=== PATIENT | female | born 1950 | race Caucasian/White ===

== ENCOUNTER 2016-12-24 11:00 | Emergency (ER) | payer BC, OTHER ==
[~2016-12-24] VITALS: Ht 172.7 cm; Wt 108.9 kg
[2016-12-24] MEDS ORDERED: BLOOD PRESSURE (11:57)
[2016-12-24] MEDS ORDERED: KETOROLAC 15 MG/ML VIAL IVP ONE (12:15)
[2016-12-24] MEDS: ORPHENADRINE 60 MG/2 ML (NORFLEX) AMP IV ONE (12:22)
[2016-12-24] MEDS: KETOROLAC 30 MG/ML VIAL IVP ONE (12:23)
[2016-12-24 12:28] LABS: BASOPHILS % (AUTO) 0 % (0-10); EOSINOPHILS # (AUTO) 0.1 10^3/uL (0.0-0.3); EOSINOPHILS % (AUTO) 2 % (0-10); LYMPHOCYTES # (AUTO) 1.4 X 10^3 (1.0-4.0); LYMPHOCYTES % (AUTO) 19 % (12-44); MEAN CORPUSCULAR HEMOGLOBIN 28 PG (25-34); MEAN CORPUSCULAR HGB CONC 33 G/DL (32-36); MEAN CORPUSCULAR VOLUME 87 FL (80-99); MEAN PLATELET VOLUME 10.1 FL (7.4-10.4); MONOCYTES # (AUTO) 0.6 X 10^3 (0.0-1.0); MONOCYTES % (AUTO) 8 % (0-12); NEUTROPHILS # (AUTO) 5.2 X 10^3 (1.8-7.8); NEUTROPHILS % (AUTO) 71 % (42-75); PLATELET COUNT 212 10^3/uL (130-400); RED BLOOD COUNT 4.24 10^6/uL (4.35-5.85); RED CELL DISTRIBUTION WIDTH 14.3 % (10.0-14.5); WHITE BLOOD COUNT 7.3 10^3/uL (4.3-11.0)
--- NOTE | 2016-12-24 12:41 | ED GU-Female ---
General Chief Complaint: Abdominal/GI Problems Stated Complaint: BACK PAIN POSS KIDNEY STONE Nursing Triage Note: ADM TO ED C/O L FLANK FOR 1 WEEK. Nursing Sepsis Screen: No Definite Risk Source: patient Exam Limitations: no limitations History of Present Illness Time seen by provider: 12:40 Initial Comments To ER with left flank pain for one week. This initially began with pain worsened by movement and palpation and she believes to be secondary to helping her mother move. However the pain persisted and now she is concerned about a kidney stone. No dysuria. No fevers or chills. No nausea or vomiting. Timing/Duration: week Severity/Quality: moderate Location: left flank Activities at Onset: none Allergies and Home Medications Allergies Coded Allergies: codeine (Verified Allergy, Unknown, 12/24/16) Home Medications Ciprofloxacin HCl 500 Mg Tablet, 500 MG PO BID, #10 Prescribed by: PINKY MACK on 12/24/16 1301 Hyoscyamine Sulfate 0.125 Mg Tab.subl, 0.25 MG SL Q6H PRN for PAIN-MILD TO MODERATE, #10 Prescribed by: PINKY MACK on 12/24/16 1301 Metronidazole 500 Mg Tablet, 500 MG PO TID, #15 Prescribed by: PINKY MACK on 12/24/16 1301 [Blood Pressure] , (Reported) Constitutional: see HPI EENTM: see HPI Respiratory: no symptoms reported Cardiovascular: no symptoms reported Genitourinary: no symptoms reported Musculoskeletal: no symptoms reported Skin: no symptoms reported Psychiatric/Neurological: No Symptoms Reported Past Yhlchra-Pahzpx-Psinna Hx Patient Social History Recent Foreign Travel: No Contact w/Someone Who Travel: No Recent Infectious Disease Expo: No Surgeries History of Surgeries: Yes Surgeries: Breast, Gallbladder Respiratory History of Respiratory Disorde: No Cardiovascular History of Cardiac Disorders: Yes (CHF) Neurological History of Neurological Disord: No Genitourinary History of Genitourinary Disor: No Gastrointestinal History of Gastrointestinal Di: No Musculoskeletal History of Musculoskeletal Dis: No Endocrine History of Endocrine Disorders: No HEENT History of HEENT Disorders: No Cancer History of Cancer: No Psychosocial History of Psychiatric Problem: No Integumentary History of Skin or Integumenta: No Physical Exam Vital Signs Vital Sign - Last 12Hours 12/24/16 11:45 Temp 98.3 Pulse 84 Resp 18 B/P (MAP) 154/74 Pulse Ox 95 O2 Delivery Room Air Capillary Refill : Less Than 3 Seconds General Appearance: WD/WN, no apparent distress HEENT: PERRL/EOMI, normal ENT inspection Neck: non-tender, full range of motion Respiratory: no respiratory distress, no accessory muscle use Gastrointestinal: normal bowel sounds, non tender, soft Extremities: normal range of motion, non-tender, normal inspection Neurologic/Psychiatric: alert, normal mood/affect, oriented x 3 Skin: normal color, warm/dry Progress/Results/Core Measures Results/Orders Lab Results Laboratory Tests Test 12/24/16 11:58 12/24/16 12:31 Range/Units White Blood Count 7.3 4.3-11.0 10^3/uL Red Blood Count 4.24 L 4.35-5.85 10^6/uL Hemoglobin 12.0 11.5-16.0 G/DL Hematocrit 37 35-52 % Mean Corpuscular Volume 87 80-99 FL Mean Corpuscular Hemoglobin 28 25-34 PG Mean Corpuscular Hemoglobin Concent 33 32-36 G/DL Red Cell Distribution Width 14.3 10.0-14.5 % Platelet Count 212 130-400 10^3/uL Mean Platelet Volume 10.1 7.4-10.4 FL Neutrophils (%) (Auto) 71 42-75 % Lymphocytes (%) (Auto) 19 12-44 % Monocytes (%) (Auto) 8 0-12 % Eosinophils (%) (Auto) 2 0-10 % Basophils (%) (Auto) 0 0-10 % Neutrophils # (Auto) 5.2 1.8-7.8 X 10^3 Lymphocytes # (Auto) 1.4 1.0-4.0 X 10^3 Monocytes # (Auto) 0.6 0.0-1.0 X 10^3 Eosinophils # (Auto) 0.1 0.0-0.3 10^3/uL Basophils # (Auto) 0.0 0.0-0.1 10^3/uL Sodium Level 141 135-145 MMOL/L Potassium Level 4.4 3.6-5.0 MMOL/L Chloride Level 106 98-107 MMOL/L Carbon Dioxide Level 26 21-32 MMOL/L Anion Gap 9 5-14 MMOL/L Blood Urea Nitrogen 13 7-18 MG/DL Creatinine 0.65 0.60-1.30 MG/DL Estimat Glomerular Filtration Rate > 60 BUN/Creatinine Ratio 20 Glucose Level 113 H 70-105 MG/DL Calcium Level 9.7 8.5-10.1 MG/DL Total Bilirubin 1.2 H 0.1-1.0 MG/DL Aspartate Amino Transf (AST/SGOT) 20 5-34 U/L Alanine Aminotransferase (ALT/SGPT) 22 0-55 U/L Alkaline Phosphatase 66 40-136 U/L Total Protein 7.0 6.4-8.2 GM/DL Albumin 3.8 3.2-4.5 GM/DL Urine Color YELLOW Urine Clarity CLEAR Urine pH 7 5-9 Urine Specific [place] 1.010 L 1.016-1.022 Urine Protein 1+ H NEGATIVE Urine Glucose (UA) NEGATIVE NEGATIVE Urine Ketones NEGATIVE NEGATIVE Urine Nitrite NEGATIVE NEGATIVE Urine Bilirubin NEGATIVE NEGATIVE Urine Urobilinogen 1 NORMAL MG/DL Urine Leukocyte Esterase 1+ H NEGATIVE Urine RBC (Auto) 1+ H NEGATIVE Urine RBC RARE /HPF Urine WBC RARE /HPF Urine Squamous Epithelial Cells 10-25 H /HPF Urine Crystals NONE /LPF Urine Bacteria NEGATIVE /HPF Urine Casts NONE /LPF Urine Mucus NEGATIVE /LPF Urine Culture Indicated NO My Orders Orders - PINKY MACK APRN Ua Culture If Indicated (12/24/16 12:11) Cbc With Automated Diff (12/24/16 12:11) Comprehensive Metabolic Panel (12/24/16 12:11) Saline Lock/Iv-Start (12/24/16 12:11) Ct Abd/Pelvis Wo(Kidney Stone) (12/24/16 12:11) Ketorolac Injection (Toradol Injection) (12/24/16 12:15) Orphenadrine Injection (Norflex Injectio (12/24/16 12:15) Ketorolac Injection (Toradol Injection) (12/24/16 12:30) Medications Given in ED Current Medications Medications Dose Ordered Sig/Merle Route Start Time Stop Time Status Last Admin Dose Admin Ketorolac Tromethamine 30 mg ONCE ONCE IVP 12/24/16 12:30 12/24/16 12:31 DC 12/24/16 12:23 30 MG Orphenadrine Citrate 60 mg ONCE ONCE IV 12/24/16 12:15 12/24/16 12:16 DC 12/24/16 12:22 60 MG Vital Signs/I&O Vital Sign - Last 12Hours 12/24/16 11:45 Temp 98.3 Pulse 84 Resp 18 B/P (MAP) 154/74 Pulse Ox 95 O2 Delivery Room Air Blood Pressure Mean: 100 Diagnostic Imaging Diagonstic Imaging: CT Comments NAME: DEB COHN REC#: [id number] PT STATUS: REG ER : 1950 PHYSICIAN: PINKY MACK APRN ADMIT DATE: 12/24/16/ER Draft Date of Exam:12/24/16 CT ABD/PELVIS WO(KIDNEY STONE) PROCEDURE: CT urinary tract, rule out kidney stone. TECHNIQUE: Multiple contiguous axial images were obtained through the abdomen and pelvis without the use of intravenous contrast. INDICATION: Left flank pain for 5 days. FINDINGS: The gallbladder is absent. The liver and bile ducts are normal. The spleen, pancreas and adrenals are normal. Kidneys, ureters and bladder are normal. There is diffuse spasm of the descending and sigmoid colon with scattered diverticula seen. No pericolonic edema is seen. No obstruction or perforation is evident. The small bowel is normal. IMPRESSION: There is diffuse spasm of the descending and sigmoid colon. These findings can be seen with inflammatory bowel disease. No obstruction or perforation is evident at this time. Dictated on workstation # [id number] Dict: 12/24/16 1250 Trans: 12/24/16 1253 [id number] Interpreted by: ADONIS MEREDITH MD Electronically signed by: Departure Communication Progress Notes I did discuss the CT results with the patient and the need for follow-up colonoscopy. She states that she has never had a colonoscopy. Impression Impression: Primary Impression: Colon wall thickening Disposition: 01 HOME, SELF-CARE Condition: Stable Departure-Patient Inst. Decision time for Depature: 12:59 Referrals: CAROLYNN REYNA MD (PCP/Family) Primary Care Physician Patient Instructions: No Instuctions Given Add. Discharge Instructions: 1. Follow-up with her regular doctor later this week 2. Return to ER for any concerns 3. Antibiotics as directed All discharge instructions reviewed with patient and/or family. Voiced understanding. Scripts Hyoscyamine Sulfate (Levsin-Sl) 0.125 Mg Tab.subl 0.25 MG SL Q6H Y for PAIN-MILD TO MODERATE, #10 TAB Prov: PINKY MACK APRN 12/24/16 Metronidazole (Flagyl) 500 Mg Tablet 500 MG PO TID, #15 TAB Prov: PINKY MACK APRN 12/24/16 Ciprofloxacin HCl (Cipro) 500 Mg Tablet 500 MG PO BID, #10 TAB Prov: PINKY MACK APRN 12/24/16 Copy Copies To 1: CAROLYNN REYNA MD, PETER J APRN Dec 24, 2016 12:41
[2016-12-24 12:45] LABS: ALANINE AMINOTRANSFERASE 22 U/L (0-55); ALBUMIN 3.8 GM/DL (3.2-4.5); ANION GAP 9 MMOL/L (5-14); ASPARTATE AMINO TRANSFERASE 20 U/L (5-34); BILIRUBIN,TOTAL 1.2 MG/DL (0.1-1.0); BLOOD UREA NITROGEN 13 MG/DL (7-18); BUN/CREATININE RATIO 20; CALCIUM 9.7 MG/DL (8.5-10.1); CARBON DIOXIDE 26 MMOL/L (21-32); CHLORIDE 106 MMOL/L (98-107); CREATININE SERUM 0.65 MG/DL (0.60-1.30); GFR ESTIMATED > 60; GLUCOSE 113 MG/DL (70-105); POTASSIUM 4.4 MMOL/L (3.6-5.0); SODIUM 141 MMOL/L (135-145)
[2016-12-24 12:48] LABS: BILIRUBIN,URINE NEGATIVE (NEGATIVE); KETONES,URINE NEGATIVE (NEGATIVE); LEUKOCYTE ESTERASE ,URINE 1+ (NEGATIVE); NITRITE,URINE NEGATIVE (NEGATIVE); PH,URINE 7 (5-9); PROTEIN,URINE 1+ (NEGATIVE); UROBILINOGEN,URINE 1 MG/DL (NORMAL)
[2016-12-24 12:49] LABS: WBC,URINE RARE /HPF
--- NOTE | 2016-12-24 12:54 | Diagnostic Imaging Report ---
PROCEDURE: CT urinary tract, rule out kidney stone. TECHNIQUE: Multiple contiguous axial images were obtained through the abdomen and pelvis without the use of intravenous contrast. INDICATION: Left flank pain for 5 days. FINDINGS: The gallbladder is absent. The liver and bile ducts are normal. The spleen, pancreas and adrenals are normal. Kidneys, ureters and bladder are normal. There is diffuse spasm of the descending and sigmoid colon with scattered diverticula seen. No pericolonic edema is seen. No obstruction or perforation is evident. The small bowel is normal. IMPRESSION: There is diffuse spasm of the descending and sigmoid colon. These findings can be seen with inflammatory bowel disease. No obstruction or perforation is evident at this time. Dictated by: Dictated on workstation # [id number]
[2016-12-24] MEDS ORDERED: HYOS0.1283 SL (13:01)
[2016-12-24] MEDS ORDERED: METR500T PO (13:01)
[2016-12-24] MEDS ORDERED: CIPR-225 PO (13:01)
[2016-12-24 13:15] VITALS: BP 169/94
--- OUTSIDE RECORDS SUMMARY | 2016-12-26 09:22 | XMS REPORT | Continuity of Care Document ---
Author Author [facility] Organization [facility] Address Unknown Phone Unavailable Care Team Providers Care Supervisor Name Role Phone CAROLYNN REYNA MD PCP Insurance Providers Payer Name Policy Number Subscriber Name Relationship [facility] [id number] Ozzy Richter 01 Advance Directives Directive Response Recorded Date/Time Advance Directives Yes 12/01/14 7:43am Health Care Power of Tube Wrapper Yes 12/01/14 7:43am Organ Donor No 12/01/14 7:43am Problems No problem information available. Medications Current Home Medications Medication Dose Units Route Directions Days/Qty Instructions Start Date Cholecalciferol 5,000 Unit 5,000 Unit Oral Daily 12/01/14 Carvedilol (Coreg) 25 Mg 25 Mg Oral Am 12/01/14 Carvedilol (Coreg) 25 Mg 50 Mg Oral Bedtime TAKES 2 (25MG) TABLETS 07/13 Furosemide 40 Mg 40 Mg Oral Daily as needed for Swelling 12/01/14 Potassium Chloride (Micro K) 10 Meq 10 Meq Oral Daily as needed for When Taking Furosemide 12/01/14 Candesartan Cilexetil 16 Mg 8 Mg Oral Bedtime TAKES 1/2 (16MG) TABLET 12/01/14 Past Home Medications Medication Directions Ordered Status [Atacand] , 0.5 Tab Oral Bedtime 12/01/14 Discontinued Social History No social history. Hospital Discharge Instructions No hospital discharge instructions. Plan of Care Discharge Date 01/19/15 5:52am Prescriptions See Medication Section Functional Status No functional status results. Allergies, Adverse Reactions, Alerts Allergen Type Severity Reaction Status Last Updated Codeine Allergy Unknown Active 05/22/14 Immunizations Name Given Type Date of Pneumonia Vaccine 01/02/12 Historical Vital Signs No known vital signs results. Results No known relevant diagnostic tests, laboratory data and/or discharge summary. Procedures No known history of procedures. Encounters Encounter Location Arrival/Admit Date Discharge/Depart Date Attending Provider Registered Clinic [facility] 01/18/15 8:25pm MARIELLE HENSLEY MD
--- OUTSIDE RECORDS SUMMARY | 2016-12-26 09:22 | XMS REPORT | Continuity of Care Document ---
Author Author [facility] Organization [facility] Address Unknown Phone Unavailable Care Team Providers Care Sales Operations Name Role Phone CAROLYNN REYNA MD PCP Insurance Providers Payer Name Policy Number Subscriber Name Relationship [facility] [id number] Ozzy Richter 01 Advance Directives Directive Response Recorded Date/Time Advance Directives Yes 12/01/14 7:43am Health Care Power of Medical Laboratory Assistant Yes 12/01/14 7:43am Organ Donor No 12/01/14 7:43am Resuscitation Status Full Code 12/01/14 7:43am Problems No known problems or medical conditions. Medications Medication Dose Route Sig Days/Qty Instructions Order Date Discontinued Date Status Cholecalciferol 5,000 Unit PO DAILY 12/01/14 Active Carvedilol (Coreg) 25 Mg PO AM 12/01/14 Active Carvedilol (Coreg) 50 Mg PO BEDTIME TAKES 2 (25MG) TABLETS 12/01/14 Active Furosemide 40 Mg PO DAILY PRN SWELLING 12/01/14 Active Potassium Chloride (Micro K) 10 Meq PO DAILY PRN WHEN TAKING FUROSEMIDE 12/01/14 Active [Atacand] 0.5 Tab PO BEDTIME 12/01/14 12/01/14 Discontinued Candesartan Cilexetil 8 Mg PO BEDTIME 12/01/14 Active Social History Social History Problem Response Recorded Date/Time Recent Foreign Travel No 12/01/2014 7:42am Smoking Status Never a Smoker 12/01/2014 7:48am Query Response Start Date Stop Date Smoking Status Never a Smoker Hospital Discharge Instructions No hospital discharge instructions. Plan of Care No plan of care. Functional Status Query Response Date Recorded Patient Orientation Person Place Time Situation Eyes Open December 01, 2014 5:08pm Allergies, Adverse Reactions, Alerts Allergen Type Severity Reaction Status Last Updated Codeine Allergy Unknown Active 05/22/14 Immunizations Name Given Type Date of Pneumonia Vaccine 01/02/12 Historical Vital Signs Acute Vital Signs Vital Response Date/Time Temperature (Fahrenheit) 98.2 degrees F (97.6 - 99.5) Temperature (Calculated Celsius) 36.59330 degrees C (36.4 - 37.5) Temperature Source Temporal Pulse Rate (adult) 81 bpm (60 - 90) Respiratory Rate 16 bpm (12 - 24) O2 Sat by Pulse Oximetry 95 % (88 - 100) Blood Pressure 133/77 mm Hg Blood Pressure Mean 95 mm Hg Pain Pain Intensity 0 Height (Feet) 5 feet Height (Inches) 8.00 inches Height (Calculated Centimeters) 172.971225 cm Weight (Pounds) 241 pounds Weight (Calculated Grams) 237670.762 gm Weight (Calculated Kilograms) 109.337484 kilograms Calculated BMI 36.64 Results Laboratory Results Test Name Result Units Flags Reference Collection Date/Time Result Date/ Time Comments White Blood Count 7.8 10^3/uL 4.3-11.0 12/01/2014 7:50am 12/01/2014 8: 00am Red Blood Count 4.75 10^6/uL 4.35-5.85 12/01/2014 7:50am 12/01/2014 8: 00am Hemoglobin 13.4 G/DL 11.5-16.0 12/01/2014 7:50am 12/01/2014 8:00am Hematocrit 41 % 35-52 12/01/2014 7:50am 12/01/2014 8:00am Mean Corpuscular Volume 86 FL 80-99 12/01/2014 7:50am 12/01/2014 8: 00am Mean Corpuscular Hemoglobin 28 PG 25-34 12/01/2014 7:50am 12/01/2014 8: 00am Mean Corpuscular Hemoglobin Concent 33 G/DL 32-36 12/01/2014 7:50am 06/2014 8:00am Red Cell Distribution Width 14.6 % H 10.0-14.5 12/01/2014 7:50am 2014 8:00am Platelet Count 235 10^3/uL 130-400 12/01/2014 7:50am 12/01/2014 8:00am Mean Platelet Volume 9.7 FL 7.4-10.4 12/01/2014 7:50am 12/01/2014 8: 00am Prothrombin Time 13.1 SEC 12.2-14.7 12/01/2014 7:50am 12/01/2014 8: 13am INR Comment 1.0 0.8-1.4 12/01/2014 7:50am 12/01/2014 8:13am INTERPRETIVE DATA SUGGESTED THERAPEUTIC RANGE FOR INR'S: VENOUS THROMBOSIS, PULMONARY EMBOLISM, OR PREVENTION OF SYSTEMIC EMBOLISM (EG. IN ATRIAL FIBRILLATION): 2.0 - 3.0 MECHANICAL PROSTHETIC HEART VALVES: 2.5 - 3.5* *NOTE: INR'S UP TO 4.5 MAY BE NECESSARY IN SELECTED GROUPS OF HIGH RISK PATIENTS. [employer] CONSENSUS CONFERENCE ON ANTITHROMBOTIC THERAPY (2000). Activated Partial Thromboplast Time 28 SEC 24-35 12/01/2014 7:50am 06/2014 8:13am Sodium Level 142 MMOL/L 135-145 12/01/2014 7:50am 12/01/2014 8:29am Potassium Level 3.7 MMOL/L 3.6-5.0 12/01/2014 7:50am 12/01/2014 8:29am Chloride Level 103 MMOL/L 98-107 12/01/2014 7:50am 12/01/2014 8:29am Carbon Dioxide Level 31 MMOL/L 21-32 12/01/2014 7:50am 12/01/2014 8: 29am Anion Gap 8 MMOL/L 5-14 12/01/2014 7:50am 12/01/2014 8:29am Blood Urea Nitrogen 13 MG/DL 7-18 12/01/2014 7:50am 12/01/2014 8:29am Creatinine 0.79 MG/DL 0.60-1.30 12/01/2014 7:50am 12/01/2014 8:29am BUN/Creatinine Ratio 16 12/01/2014 7:50am 12/01/2014 8:29am Estimat Glomerular Filtration Rate > 60 12/01/2014 7:50am 2014 8:29am GFR INTERPRETIVE DATA UNITS FOR ESTIMATED GFR (eGFR): mL/min/1.73 M2 REFERENCE RANGE FOR ESTIMATED GFR (eGFR) eGFR NORMAL eGFR >60 MODERATELY DECREASED eGFR 30-59 SEVERLY DECREASED eGFR 15-29 KIDNEY FAILURE <15 (OR DIALYSIS) Glucose Level 105 MG/DL 70-105 12/01/2014 7:50am 12/01/2014 8:29am Calcium Level 9.9 MG/DL 8.5-10.1 12/01/2014 7:50am 12/01/2014 8:29am Total Bilirubin 1.3 MG/DL H 0.1-1.0 12/01/2014 7:50am 12/01/2014 8:29am Alkaline Phosphatase 64 U/L 40-136 12/01/2014 7:50am 12/01/2014 8:29am Aspartate Amino Transf (AST/SGOT) 16 U/L 5-34 12/01/2014 7:50am 2014 8:29am Alanine Aminotransferase (ALT/SGPT) 18 U/L 0-55 12/01/2014 7:50am 12/01 8:29am Total Protein 7.2 G/DL 6.4-8.2 12/01/2014 7:50am 12/01/2014 8:29am Albumin 3.9 G/DL 3.2-4.5 12/01/2014 7:50am 12/01/2014 8:29am Triglycerides Level 132 MG/DL <150 12/01/2014 7:50am 12/01/2014 8:29am Cholesterol Level 214 MG/DL H < 200 12/01/2014 7:50am 12/01/2014 8:29am HDL Cholesterol 48 MG/DL 40-60 12/01/2014 7:50am 12/01/2014 8:29am LDL Cholesterol Direct 138 MG/DL H 1-129 12/01/2014 7:50am 12/01/2014 8: 29am VLDL Cholesterol 26 MG/DL 5-40 12/01/2014 7:50am 12/01/2014 8:29am Procedures Procedure Status Date Provider(s) Color Doppler echocardiography completed 11/24/14 MARIELLE HENSLEY MD Encounters Encounter Location Date/Time Departed [facility] 12/01/14 7:31am Registered Clinic [facility] 11/24/14 12:37pm
--- OUTSIDE RECORDS SUMMARY | 2016-12-26 09:23 | XMS REPORT | Continuity of Care Document ---
Author Author [facility] Organization [facility] Address Unknown Phone Unavailable Allergies Active Description Code Type Severity Reaction Onset Reported/Identified Relationship to Patient Clinical Status Yes codeine [id number] Drug Allergy Unknown N/A 05/22/2014 Medications Problems Date Dx Coded Attending Type Code Diagnosis Diagnosed By 05/08/2014 MARIELLE HENSLEY MD Ot 173.31 05/08/2014 MARIELLE HENSLEY MD Ot 425.4 05/08/2014 MARIELLE HENSLEY MD Ot V10.3 06/11/2014 MARIELLE HENSLEY MD Ot 425.4 11/27/2014 MARIELLE HENSLEY MD Ot 425.4 12/01/2014 MARIELLE HENSLEY MD Ot 278.00 OBESITY, NOS 12/01/2014 MARIELLE HENSLEY MD Ot 327.23 OBSTRUCTIVE SLEEP APNEA (ADULT) ( PEDIATR 12/01/2014 MARIELLE HENSLEY MD Ot 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 12/01/2014 MARIELLE HENSLEY MD Ot 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 12/01/2014 MARIELLE HENSLEY MD Ot 425.4 PRIM CARDIOMYOPATHY NEC 12/01/2014 MARIELLE HENSLEY MD Ot V10.3 HX OF BREAST MALIGNANCY 12/01/2014 MARIELLE HENSLEY MD Ot V15.3 HX OF IRRADIATION 12/01/2014 MARIELLE HENSLEY MD Ot V58.69 OTH MED,LT,CURRENT USE 12/01/2014 MARIELLE HENSLEY MD Ot V85.36 BODY MASS INDEX 36.0-36.9, ADULT 12/01/2014 MARIELLE HENSLEY MD Ot V87.41 PERSONAL HISTORY OF ANTINEOPLASTIC CHEMO 12/22/2014 MARIELLE HENSLEY MD Ot 425.4 01/19/2015 MARIELLE HENSLEY MD Ot 327.23 OBSTRUCTIVE SLEEP APNEA (ADULT) ( PEDIATR 01/19/2015 MARIELLE HENSLEY MD Ot 425.4 PRIM CARDIOMYOPATHY NEC 02/11/2015 MARIELLE HENSLEY MD Ot 173.31 02/11/2015 MARIELLE HENSLEY MD Ot 425.4 02/11/2015 MARIELLE HENSLEY MD Ot V10.3 02/11/2015 MARIELLE HENSLEY MD Ot 425.4 02/11/2015 MARIELLE HENSLEY MD Ot 425.4 06/21/2016 MARIELLE HENSLEY MD Ot 173.31 BASAL CELL CARCINOMA OF SKIN OF OT UN 06/21/2016 MARIELLE HENSLEY MD Ot 425.4 PRIM CARDIOMYOPATHY NEC 06/21/2016 MARIELLE HENSLEY MD Ot V10.3 HX OF BREAST MALIGNANCY 06/21/2016 MARIELLE HENSLEY MD Ot 425.4 PRIM CARDIOMYOPATHY NEC 06/21/2016 MARIELLE HENSLEY MD Ot 425.4 PRIM CARDIOMYOPATHY NEC 06/21/2016 MARIELLE HENSLEY MD Ot 173.31 BASAL CELL CARCINOMA OF SKIN OF OT UN 06/21/2016 MARIELLE HENSLEY MD Ot 425.4 PRIM CARDIOMYOPATHY NEC 06/21/2016 MARIELLE HENSLEY MD Ot V10.3 HX OF BREAST MALIGNANCY 06/21/2016 MARIELLE HENSLEY MD Ot 425.4 PRIM CARDIOMYOPATHY NEC 06/21/2016 MARIELLE HENSLEY MD Ot 425.4 PRIM CARDIOMYOPATHY NEC 06/23/2016 MARIELLE HENSLEY MD Ot 173.31 BASAL CELL CARCINOMA OF SKIN OF OT UN 06/23/2016 MARIELLE HENSLEY MD Ot 425.4 PRIM CARDIOMYOPATHY NEC 06/23/2016 MARIELLE HENSLEY MD Ot V10.3 HX OF BREAST MALIGNANCY 06/23/2016 MARIELLE HENSLEY MD Ot 425.4 PRIM CARDIOMYOPATHY NEC 06/23/2016 MARIELLE HENSLEY MD, Ot 425.4 PRIM CARDIOMYOPATHY NEC Procedures Results Encounters ACCT No. Visit Date/Time Discharge Status Pt. Type Provider Facility Loc./Unit Complaint [id number] 01/18/2015 20:25:00 2014 05:52:00 DIS Outpatient MARIELLE HENSLEY MD [facility] SLEEP SNORING EXCESSIVE DAYTIME SLEEPINESS [id number] 12/01/2014 07:31:00 2014 16:30:00 DIS Outpatient MARIELLE HENSLEY MD [facility] CARDIOMYOPATHY [id number] 11/24/2014 12:37:00 2014 23:59:59 CLS Outpatient MARIELLE HENSLEY MD [facility] NON ISCHEMIC CARDIOMYOPATHY [id number] 05/22/2014 11:42:00 2014 23:59:59 CLS Outpatient MARIELLE HENSLEY MD [facility] CARDIOMYOPATHY-NON ISCHEMIC [id number] 04/17/2014 13:41:00 2013 23:59:59 CLS Outpatient MARIELLE HENSLEY MD [facility] NONISCHEMIC DIALATED CARDIOMYOPATHY
== END 2016-12-24 13:17 | disposition home or self-care (01) ==
LOC: EDUNIT# 11:00 → ER 11:03
DX: K63.89 Other specified diseases of intestine (principal); I50.9 Heart failure, unspecified
CPT/HCPCS: 36415; 74176; 80053; 81000; 85025

== ENCOUNTER 2017-01-18 14:00 | Outpatient (CLI) | payer BC ==
[~2017-01-18] VITALS: Ht 172.7 cm; Wt 108.9 kg
[~2017-01-18 14:00] MED LIST: ATACAND PO; BLOOD PRESSURE; CAND16TA PO; CARV25TA PO; CHOL5000 PO; CIPR-225 PO; FURO40TA PO; HYOS0.1283 SL; METR500T PO; POTA10CA43 PO
[2017-01-18] MEDS ORDERED: CRV25T PO ×2 (14:11)
[2017-01-18] MEDS ORDERED: MULT-35 PO (14:11)
[2017-01-18] MEDS ORDERED: VALS320T14 PO (14:11)
[2017-01-18] MEDS ORDERED: KRIL500C PO (14:11)
== END 2017-01-18 14:35 ==
LOC: PREOP 14:00
PROVIDERS: ATTEND Internal Medicine
DX: Z01.818 Encounter for other preprocedural examination (principal); Z12.11 Encounter for screening for malignant neoplasm of colon

== ENCOUNTER 2017-01-20 08:16 | Day surgery (SDC) | payer BC ==
--- NOTE | 2017-01-19 22:29 | HISTORY AND PHYSICAL ---
DATE OF SERVICE: 01/20/2017 DATE OF ADMISSION: 01/20/2017 HISTORY OF PRESENT ILLNESS: The patient is a 66-year-old white female seen in the office on 01/05/2017 for followup of left flank pain and need for screening colonoscopy. The patient reports her left flank pain has improved. She underwent a CT scan for stone search that did reveal some spasm in the sigmoid and descending colon with diverticulum, but no overt evidence for diverticulitis. She has no past history of colonoscopy. She denied blood or bowel habit change. There was no radiation of her pain from the left flank area. Kidneys and ureters were unremarkable. She denies chills or fever. Otherwise, has been feeling well. She has had no orthopnea, PND with stable trace pedal edema at the end of the day. She denies any increased dyspnea on exertion over baseline. PAST MEDICAL HISTORY: Dilated cardiomyopathy diagnosed in 2002, her last echo in 2014 revealed stable ejection fraction 25% with pulmonary artery pressure 44 mmHg. She has a history of breast cancer diagnosed in without evidence for recurrence. She also has a history of obstructive sleep apnea on CPAP therapy. There is no family history for colon cancer or polyps that she is aware of. PHYSICAL EXAMINATION: GENERAL: Reveals a pleasant white female in no acute distress. VITAL SIGNS: Blood pressure 136/80. NECK: Revealed no JVD, adenopathy or bruits. CHEST: Clear. CARDIOVASCULAR: Regular rate and rhythm without murmur, S3 or S4. ABDOMEN: Soft, supple without mass, organomegaly or tenderness. EXTREMITIES: Reveal no cyanosis, clubbing or edema. ASSESSMENT: 1. The patient was set up for screening colonoscopy on the . Prep instructions with Suprep kit were given and questions were answered. 2. Chronic systolic heart failure secondary to dilated nonischemic cardiomyopathy, compensated. 3. Obstructive sleep apnea on home CPAP therapy. 4. Left flank pain, most likely musculoskeletal etiology, resolved. We will have her return for regular follow up in January at which time she will be given a flu shot. Job ID: [id number] DocumentID: [id number] Dictated Date: 01/06/2017 15:55:38 Desizing Machine Offbearer Date: 01/06/2017 22:05:58 Dictated By: CAROLYNN REYNA MD
[~2017-01-20] VITALS: Ht 172.7 cm; Wt 108.9 kg
[~2017-01-20 08:16] MED LIST changes: +CRV25T PO; +KRIL500C PO; +MULT-35 PO; +VALS320T14 PO
--- OUTSIDE RECORDS SUMMARY | 2017-01-20 08:20 | XMS REPORT | Continuity of Care Document ---
Author Author [facility] Organization [facility] Address Unknown Phone Unavailable Allergies Active Description Code Type Severity Reaction Onset Reported/Identified Relationship to Patient Clinical Status Yes codeine [id number] Drug Allergy Unknown N/A 05/22/2014 Medications Problems [...] HENSLEY MD Ot 414.01 CORONARY ATHEROSCLEROSIS OF [place] CORON 12/01/2014 MARIELLE HENSLEY MD Ot 414.2 [...] Status Pt. Type Provider Facility Loc./Unit Complaint [id number] 01/18/2015 20:25:00 2014 05:52:00 DIS Outpatient MARIELLE HENSLEY MD [facility] SLEEP SNORING EXCESSIVE DAYTIME SLEEPINESS [id number] 12/01/2014 07:31:00 2014 16:30:00 DIS Outpatient MARIELLE HENSLEY MD [facility] CARDIOMYOPATHY [id number] 11/24/2014 12:37:00 2014 23:59:59 CLS Outpatient MARIELLE HENSLEY MD [facility] NON ISCHEMIC CARDIOMYOPATHY [id number] 05/22/2014 11:42:00 2014 23:59:59 CLS Outpatient MARIELLE HENSLEY MD [facility] CARDIOMYOPATHY-NON ISCHEMIC [id number] 04/17/2014 13:41:00 2013 23:59:59 CLS Outpatient MARIELLE HENSLEY MD [facility] NONISCHEMIC DIALATED CARDIOMYOPATHY
[2017-01-20] MEDS ORDERED: 1/2 NS IV SOLUTION 1,000 ML IV PRN (08:30)
[2017-01-20] MEDS ORDERED: LIDOCAINE JELLY 2% (XYLOCAINE) 5 ML TUBE MM PRN (08:30)
[2017-01-20] MEDS ORDERED: 1/2 NS IV SOLUTION 1,000 ML IV ONE (08:33)
[2017-01-20 08:38] VITALS: BP 120/56
[2017-01-20] MEDS ORDERED: MIDAZOLAM 2 MG/2 ML (VERSED) VIAL ONE ×6 (10:00→10:38)
[2017-01-20] MEDS ORDERED: LIDOCAINE JELLY 2% (XYLOCAINE) 5 ML TUBE ONE (10:00)
[2017-01-20] MEDS ORDERED: fentaNYL INJECTION 100 MCG/2 ML AMP ONE ×4 (10:00→10:38)
[2017-01-20] MEDS: fentaNYL INJECTION 100 MCG/2 ML AMP IVP PRN ×7 (10:08→10:46)
[2017-01-20] MEDS: MIDAZOLAM 2 MG/2 ML (VERSED) VIAL IVP PRN ×6 (10:10→10:45)
--- NOTE | 2017-01-20 10:16 | Pre-Op Note & Conscious Sedat ---
Pre-Operative Progress Note H&P Reviewed The H&P was reviewed, patient examined and no changes noted. Date H&P Reviewed: Jan 20, 2017 Time H&P Reviewed: 09:30 Conscious Sedation Pre-Proced ASA Class: 2 Airway Mallampati Classification: ([place] appropriate class) I. II. III, IV Lungs Heart ASA score ASA 1: a normal healthy patient ASA 2: a patient with a mild systemic disease (mid diabetes, controlled hypertension, obesity ASA 3: a patient with a severe systemic disease that limits activity (angina , COPD, prior Myocardial infarction) ASA 4: a patient with an incapacitating disease that is a constant threat to life (CHF, renal failure) ASA 5: a moribund patient not expected to survive 24 hrs. (ruptured aneurysm) ASA 6: a declared brain patient whose organs are being harvested. For emergent operations, add the letter E after the classification Grade 3 Sedation Plan: Analgesia, Amnesia, Plan communicated to team members, Discussed options with patient/fam, Discussed risks with patient/fam Note The patient is an appropriate candidate to undergo the planned procedure, sedation, and anesthesia. The patient immediately re-assessed prior to indication. CAROLYNN REYNA MD Jan 20, 2017 10:16
[2017-01-20 11:20] VITALS: BP 133/76
[2017-01-20 11:50] VITALS: BP 113/60
[2017-01-20 12:10] VITALS: BP 113/60
--- NOTE | 2017-01-21 15:33 | OPERATIVE REPORT ---
DATE OF SERVICE: COLONSCOPY SUMMARY INDICATION FOR THE PROCEDURE: Screening colonoscopy. The patient was placed in the left lateral decubitus position. Prior to undergoing colonoscopy digital rectal evaluation was performed. Anal sphincter tone was normal and the perianal reflexes intact. No abnormalities were noted on visual inspection anal canal or distal rectal vault. The colonoscope was then inserted into the rectum and under direct visualization advanced to the cecum. The cecum was identified by identification of the ileocecal valve and cecal strap. Photographic documentation was obtained. Careful inspection was made as the colonoscope was withdrawn. FINDINGS: There was no evidence for internal or external hemorrhoids. The rectum was unremarkable. Several small sigmoid diverticulum were present with no evidence for diverticulitis. No other sigmoid colonic abnormalities were appreciated. The descending colon was unremarkable. Present at the splenic flexure was a 4 mm sessile adenomatous appearing polyp. It was photographed and biopsied and ablated with no subsequent blood loss. The transverse colon, hepatic flexure, ascending colon and cecum were unremarkable. ASSESSMENT: 1. One diminutive polyp was biopsied and ablated using hot forceps located at the splenic flexure. 2. Mild diverticular disease confined to the sigmoid colon without evidence for diverticulitis. There is positive family history for colon cancer the index case being her mother notably sometime in her late 60s or early 70s. Job ID: [id number] DocumentID: [id number] Dictated Date: 01/21/2017 15:16:34 Sheet Cutting Operator Date: 01/21/2017 15:32:09 Dictated By: CAROLYNN REYNA MD MTDD
== END 2017-01-20 12:10 | disposition home or self-care (01) ==
LOC: ENDO 08:16
PROVIDERS: ATTEND Internal Medicine
DX: Z12.11 Encounter for screening for malignant neoplasm of colon (principal); K63.5 Polyp of colon; K57.30 Diverticulosis of large intestine without perforation or abscess without bleeding; Z80.0 Family history of malignant neoplasm of digestive organs; I50.22 Chronic systolic (congestive) heart failure; I42.0 Dilated cardiomyopathy; G47.33 Obstructive sleep apnea (adult) (pediatric); Z85.3 Personal history of malignant neoplasm of breast

== ENCOUNTER → 2017-07-04 | Outpatient (CLI) | payer BC ==
--- NOTE | 2017-07-04 13:36 | Diagnostic Imaging Report ---
INDICATION: COUGH,SOB DELATED CARDIOMYOPATHY COMPARISON: None. FINDINGS: Frontal and lateral views of the chest demonstrate normal heart size and pulmonary vascularity. The lungs are clear. There are no signs of infiltrate, pleural effusions or pneumothoraces. The visualized osseous structures show no acute abnormalities. IMPRESSION: 1. No acute process. No signs of infiltrates, effusions or pneumothoraces. Dictated by: Dictated on workstation # [id number]
[2017-07-04 13:40] LABS: BASOPHILS % (AUTO) 0 % (0-10); EOSINOPHILS # (AUTO) 0.2 10^3/uL (0.0-0.3); EOSINOPHILS % (AUTO) 3 % (0-10); HEMATOCRIT 39 % (35-52); HEMOGLOBIN 12.9 G/DL (11.5-16.0); LYMPHOCYTES # (AUTO) 2.4 X 10^3 (1.0-4.0); LYMPHOCYTES % (AUTO) 28 % (12-44); MEAN CORPUSCULAR HEMOGLOBIN 28 PG (25-34); MEAN CORPUSCULAR HGB CONC 33 G/DL (32-36); MEAN CORPUSCULAR VOLUME 85 FL (80-99); MEAN PLATELET VOLUME 9.5 FL (7.4-10.4); MONOCYTES # (AUTO) 0.7 X 10^3 (0.0-1.0); MONOCYTES % (AUTO) 8 % (0-12); NEUTROPHILS # (AUTO) 5.2 X 10^3 (1.8-7.8); NEUTROPHILS % (AUTO) 62 % (42-75); PLATELET COUNT 215 10^3/uL (130-400); RED BLOOD COUNT 4.57 10^6/uL (4.35-5.85); RED CELL DISTRIBUTION WIDTH 15.1 % (10.0-14.5); WHITE BLOOD COUNT 8.5 10^3/uL (4.3-11.0)
== END ==
LOC: RAD 13:17
PROVIDERS: ATTEND Internal Medicine
DX: I42.0 Dilated cardiomyopathy (principal); R05 Cough
CPT/HCPCS: 36415; 71046; 83880; 85025

== ENCOUNTER 2017-11-18 04:34 | Emergency (ER) | payer MEDICARE ==
[~2017-11-18] VITALS: Ht 172.7 cm; Wt 108.9 kg
[~2017-11-18 04:34] MED LIST changes: -VALS320T14 PO; +VALS320T15 PO
[2017-11-18] MEDS ORDERED: ASPIRIN 81 MG CHEW (CHILDREN'S ASA) PO ONE (04:45)
--- NOTE | 2017-11-18 04:58 | ED Cardiac General ---
History of Present Illness General Chief Complaint: Cardiac/General Problems Stated Complaint: SOB,CHF Nursing Triage Note: patient reports having HF, patient states that about 2100 her HR began to fluctuate between 80 and 130 according to her pulse ox. patient reports taking her coreg at 0030 and waking up at 0430 and still feeling like her heart was fluttering. Source: patient Exam Limitations: no limitations History of Present Illness Date Seen by Provider: Nov 18, 2017 Time Seen by Provider: 04:43 Initial Comments PT ARRIVES VIA POV FROM HOME C/O PALPITATIONS SINCE 2100 TONIGHT--STATES SHE HAS FELT FLUTTERING IN HER CHEST AND HER HEART RATE HAS VARIED FROM 80 TO 130 ACCORDING TO HOME PULSE OXIMETER SYMPTOMS ARE NOT OCCURRING NOW. STOPPED JUST PRIOR TO ARRIVAL NO CHEST PAIN NO SHORTNESS OF BREATH NO SWEATS NO INCREASE IN CHRONIC LEG SWELLING NO DIZZINESS OR SYNCOPE NO CHANGE IN ACTIVITY TODAY NO CHANGES IN MEDICATIONS, OR MISSED DOSES OF MEDICATIONS. TOOK NIGHT TIME COREG 50 MG AT MIDNIGHT. STATES SHE DID TAKE HER MORNING DOSE LATE--DID NOT TAKE IT UNTIL 1300 TODAY PT HAS HISTORY OF CHF PT HAS HAD THESE SAME PALPITATIONS MULTIPLE TIMES IN THE PAST, BUT USUALLY GO AWAY AND DON'T USUALLY LAST THIS LONG DOES NOT HAVE HISTORY OF ATRIAL FIBRILLATION OR OTHER ARRHYTHMIA DX NO HX OF AK--HAS HAD A NORMAL CARDIAC CATH IN PAST. PCP: DR. REYNA ACCOUNTANT CLERK:DR. WILCOX. Allergies and Home Medications Allergies Coded Allergies: codeine (Verified Allergy, Mild, HALLUCINATIONS, 01/18/17) Home Medications Candesartan Cilexetil 16 Mg Tab, 8 MG PO HS, (Reported) TAKES 1/2 (16MG) TABLET Carvedilol 25 Mg Tablet, 25 MG PO AM, (Reported) Carvedilol 25 Mg Tablet, 50 MG PO HS, (Reported) TAKES 2 (25MG) TABLETS Carvedilol 25 Mg Tab, 25 MG PO MORNING, (Reported) Carvedilol 25 Mg Tab, 50 MG PO HS, (Reported) Cholecalciferol 5,000 Unit Capsule, 5,000 UNIT PO DAILY, (Reported) Furosemide 40 Mg Tablet, 40 MG PO DAILY PRN for SWELLING, (Reported) Krill Oil 500 Mg Capsule, 500 MG PO DAILY, (Reported) Multivitamin 1 Each Tablet, 1 EACH PO DAILY, (Reported) Potassium Chloride 10 Meq Capsule.sa, 10 MEQ PO DAILY PRN for WHEN TAKING FUROSEMIDE, (Reported) Valsartan 320 Mg Tablet, 320 MG PO DAILY, (Reported) Patient Home Medication List Home Medication List Reviewed: Yes Review of Systems Constitutional: no symptoms reported; No diaphoresis, No dizziness EENTM: No Symptoms Reported Respiratory: No Symptoms Reported; Denies Orthopnea, Denies Shortness of Air Cardiovascular: See HPI; Denies Chest Pain; Irregular Heart Rate; Denies Lightheadedness; Palpitations; Denies Syncope Gastrointestinal: No Symptoms Reported Genitourinary: No Symptoms Reported Musculoskeletal: no symptoms reported Skin: no symptoms reported Psychiatric/Neurological: No Symptoms Reported Endocrine: No Symptoms Reported Hematologic/Lymphatic: No Symptoms Reported Past Pgwjvte-Qrghuz-Lyqyeb Hx Patient Social History Alcohol Use: Rarely Uses (USED TO DRINK MODERATELY, NOW RARE USE SINCE 2002) Recreational Drug Use: No Smoking Status: Former Smoker (SMOKED IN COLLEGE. ) Recent Foreign Travel: No Contact w/Someone Who Travel: No Recent Infectious Disease Expo: No Recent Hopitalizations: No Physical Abuse: No Sexual Abuse: No Seasonal Allergies Seasonal Allergies: Yes Past Medical History Surgeries: Yes (LUMPECTOMY-LEFT BREAST) Breast, Gallbladder, Tubal Ligation Respiratory: No Cardiac: Yes (CHF; NON-ISCHEMIC CARDIOMYOPATHY. 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 Disorders: No Sexually Transmitted Disease: No HIV/AIDS: No Genitourinary: No Gastrointestinal: No Musculoskeletal: Yes Arthritis Endocrine: No HEENT: No Loss of Vision: Bilateral Hearing Impairment: Denies Cancer: Yes (LEFT LUMPECTOMY, CHEMO AND RADIATION--DX IN 1980) Breast Did You Recieve Any Treatments: Yes What Type of Treatment Did You: Chemotherapy, Radiation, Surgical Intervention Psychosocial: No Nursing Suicide Risk Score: 0 Integumentary: No Blood Disorders: No Adverse Reaction/Blood Tranf: No (N/A) Physical Exam Vital Signs Vital Signs - First Documented 11/18/17 04:42 Temp 97.4 Pulse 91 Resp 18 B/P (MAP) 165/83 (110) Pulse Ox 98 O2 Delivery Room Air Capillary Refill : Less Than 3 Seconds Height, Weight, BMI Height: 5'8.00" Weight: 240lbs. 0.0oz. 108.564676kh; 36.5 BMI Method:Stated General Appearance: No Apparent Distress, Obese, Other (SMILING, TALKATIVE) Neck: Full Range of Motion, Normal Inspection, Non Tender, Supple; No Carotid Bruit, No JVD Respiratory: Normal Breath Sounds, No Accessory Muscle Use, No Respiratory Distress, Other (POST OP CHANGES LEFT BREAST) Cardiovascular: Regular Rate, Rhythm, No JVD, No Murmur, Normal Peripheral Pulses Gastrointestinal: Non Tender, Soft Extremity: Normal Range of Motion, Non Tender, No Calf Tenderness, Pedal Edema (TRACE BILATERALLY) Neurologic/Psychiatric: Alert, Oriented x3, No Motor/Sensory Deficits, Normal Mood/Affect, 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 Norm as Tested Skin: Normal Color, Warm/Dry Progress/Results/Core Measures Results/Orders Lab Results Laboratory Tests Test 11/18/17 04:50 Range/Units White Blood Count 7.6 4.3-11.0 10^3/uL Red Blood Count 4.23 L 4.35-5.85 10^6/uL Hemoglobin 12.2 11.5-16.0 G/DL Hematocrit 36 35-52 % Mean Corpuscular Volume 86 80-99 FL Mean Corpuscular Hemoglobin 29 25-34 PG Mean Corpuscular Hemoglobin Concent 34 32-36 G/DL Red Cell Distribution Width 14.6 H 10.0-14.5 % Platelet Count 209 130-400 10^3/uL Mean Platelet Volume 9.8 7.4-10.4 FL Neutrophils (%) (Auto) 58 42-75 % Lymphocytes (%) (Auto) 30 12-44 % Monocytes (%) (Auto) 10 0-12 % Eosinophils (%) (Auto) 2 0-10 % Basophils (%) (Auto) 0 0-10 % Neutrophils # (Auto) 4.4 1.8-7.8 X 10^3 Lymphocytes # (Auto) 2.3 1.0-4.0 X 10^3 Monocytes # (Auto) 0.8 0.0-1.0 X 10^3 Eosinophils # (Auto) 0.2 0.0-0.3 10^3/uL Basophils # (Auto) 0.0 0.0-0.1 10^3/uL Prothrombin Time 13.0 12.2-14.7 SEC INR Comment 1.0 0.8-1.4 Activated Partial Thromboplast Time 29 24-35 SEC Sodium Level 139 135-145 MMOL/L Potassium Level 3.8 3.6-5.0 MMOL/L Chloride Level 105 98-107 MMOL/L Carbon Dioxide Level 24 21-32 MMOL/L Anion Gap 10 5-14 MMOL/L Blood Urea Nitrogen 14 7-18 MG/DL Creatinine 0.66 0.60-1.30 MG/DL Estimat Glomerular Filtration Rate > 60 BUN/Creatinine Ratio 21 Glucose Level 113 H 70-105 MG/DL Calcium Level 9.6 8.5-10.1 MG/DL Magnesium Level 2.1 1.8-2.4 MG/DL Total Bilirubin 1.3 H 0.1-1.0 MG/DL Aspartate Amino Transf (AST/SGOT) 21 5-34 U/L Alanine Aminotransferase (ALT/SGPT) 21 0-55 U/L Alkaline Phosphatase 65 40-136 U/L Total Creatine Kinase 68 29-168 U/L Creatine Kinase MB 1.1 <6.6 NG/ML Troponin I < 0.30 <0.30 NG/ML B-Type Natriuretic Peptide 278.4 H <100.0 PG/ML Total Protein 6.5 6.4-8.2 GM/DL Albumin 3.7 3.2-4.5 GM/DL TSH [place] Testing 4.64 0.35-4.94 UIU/ML My Orders Orders - KASIA VENTURA DO Cbc With Automated Diff (11/18/17 04:43) Comprehensive Metabolic Panel (11/18/17 04:43) Creatine Kinase (11/18/17 04:43) Creatine Kinase Mb (11/18/17 04:43) Partial Thromboplastin Time (11/18/17 04:43) Protime With Inr (11/18/17 04:43) Troponin I (11/18/17 04:43) Chest 1 View, Ap/Pa Only (11/18/17 04:43) O2 (11/18/17 04:43) Ekg Tracing (11/18/17 04:43) Aspirin Chewable Tablet (Baby Aspirin Ch (11/18/17 04:45) BNP (11/18/17 04:43) Monitor-Rhythm Ecg Trace Only (11/18/17 04:43) Magnesium (11/18/17 04:43) Thyroid Analyzer (11/18/17 05:21) Medications Given in ED Current Medications Medications Dose Ordered Sig/Merle Route Start Time Stop Time Status Last Admin Dose Admin Aspirin 324 mg ONCE ONCE PO 11/18/17 04:45 11/18/17 04:46 DC 11/18/17 04:55 324 MG Vital Signs/I&O 11/18/17 11/18/17 11/18/17 04:42 04:47 05:59 Temp 97.4 Pulse 91 85 Resp 18 16 B/P (MAP) 165/83 (110) 151/67 Pulse Ox 98 98 O2 Delivery Room Air Room Air Blood Pressure Mean: 110 Progress Progress Note : Progress Note COMPLETELY ASYMPTOMATIC DURING ER STAY AND NO ARRHYTHMIAS DURING ER STAY OUTPATIENT ORDERS FOR BROWN MONITOR--PT STATES SHE HAD ONE MANY YEARS AGO FOR THIS PROBLEM--DID NOT SHOW ANYTHING , PER PT. Initial ECG Impression Date: Nov 18, 2017 Initial ECG Impression Time: 04:44 Initial ECG Rate: 89 Initial ECG Rhythm: Normal Sinus Diagnostic Imaging Comments CXR--MILD CARDIOMEGALY, NO OVERT FAILURE OR ACUTE PROCESS, PENDING RADIOLOGIST REVIEW Reviewed: Reviewed by Me Departure Impression Primary Impression: Palpitations Disposition: 01 HOME, SELF-CARE Condition: Improved Departure-Patient Inst. Referrals: CAROLYNN REYNA MD (PCP/Family) Primary Care Physician Patient Instructions: Palpitations (DC) Add. Discharge Instructions: CALL ON MONDAY MORNING TO ARRANGE FOR HOLTER MONITOR FOLLOW UP WITH DR. REYNA AND/OR DR. WILCOX NEXT WEEK FOR FURTHER CARE RETURN TO ER IF SYMPTOMS WORSEN All discharge instructions reviewed with patient and/or family. Voiced understanding. KASIA VENTURA DO Nov 18, 2017 04:58
[2017-11-18 05:01] LABS: BASOPHILS % (AUTO) 0 % (0-10); EOSINOPHILS # (AUTO) 0.2 10^3/uL (0.0-0.3); EOSINOPHILS % (AUTO) 2 % (0-10); HEMATOCRIT 36 % (35-52); HEMOGLOBIN 12.2 G/DL (11.5-16.0); LYMPHOCYTES # (AUTO) 2.3 X 10^3 (1.0-4.0); LYMPHOCYTES % (AUTO) 30 % (12-44); MEAN CORPUSCULAR HEMOGLOBIN 29 PG (25-34); MEAN CORPUSCULAR HGB CONC 34 G/DL (32-36); MEAN CORPUSCULAR VOLUME 86 FL (80-99); MEAN PLATELET VOLUME 9.8 FL (7.4-10.4); MONOCYTES # (AUTO) 0.8 X 10^3 (0.0-1.0); MONOCYTES % (AUTO) 10 % (0-12); NEUTROPHILS # (AUTO) 4.4 X 10^3 (1.8-7.8); NEUTROPHILS % (AUTO) 58 % (42-75); PLATELET COUNT 209 10^3/uL (130-400); RED BLOOD COUNT 4.23 10^6/uL (4.35-5.85); RED CELL DISTRIBUTION WIDTH 14.6 % (10.0-14.5); WHITE BLOOD COUNT 7.6 10^3/uL (4.3-11.0)
[2017-11-18 05:20] LABS: ALANINE AMINOTRANSFERASE 21 U/L (0-55); ALBUMIN 3.7 GM/DL (3.2-4.5); ALKALINE PHOSPHATASE 65 U/L (40-136); BILIRUBIN,TOTAL 1.3 MG/DL (0.1-1.0); BUN/CREATININE RATIO 21; CALCIUM 9.6 MG/DL (8.5-10.1); CARBON DIOXIDE 24 MMOL/L (21-32); CHLORIDE 105 MMOL/L (98-107); CREATINE KINASE 68 U/L (29-168); CREATININE SERUM 0.66 MG/DL (0.60-1.30); GFR ESTIMATED > 60; GLUCOSE 113 MG/DL (70-105); MAGNESIUM 2.1 MG/DL (1.8-2.4); POTASSIUM 3.8 MMOL/L (3.6-5.0); SODIUM 139 MMOL/L (135-145); TOTAL PROTEIN 6.5 GM/DL (6.4-8.2)
[2017-11-18 05:26] LABS: CREATINE KINASE MB 1.1 NG/ML (<6.6)
[2017-11-18 05:59] VITALS: BP 151/67
--- NOTE | 2017-11-18 06:27 | Diagnostic Imaging Report ---
EXAMINATION: Portable erect AP chest at 04:56 a.m. INDICATION: Heart fluttering. FINDINGS: The heart is borderline enlarged and the heart has increased in size since the prior exam of 07/04/2017. The chronic pulmonary changes evident on the prior study are again visualized and essentially no different. There is no evidence for failure, pneumonia, or for pleural effusion. The mediastinum is not widened. The osseous structures are intact. Surgical clips are again seen overlying the left axilla. IMPRESSION: The heart has increased in size and there is now borderline cardiomegaly. However, there is no evidence for an acute cardiopulmonary abnormality. Dictated by: Dictated on workstation # [id number]
== END 2017-11-18 06:00 | disposition home or self-care (01) ==
LOC: EDUNIT# 04:34 → ER 04:35
DX: R00.2 Palpitations (principal); I11.0 Hypertensive heart disease with heart failure; I50.9 Heart failure, unspecified; Z88.5 Allergy status to narcotic agent; Z87.891 Personal history of nicotine dependence; Z98.51 Tubal ligation status; Z85.3 Personal history of malignant neoplasm of breast
CPT/HCPCS: 36415; 71045; 80053; 82550; 82553; 83735; 83880; 84443; 84484; 85025; 85610; 85730; 93005; 93041

== ENCOUNTER 2018-06-05 10:58 | Observation (INO) | payer MEDICARE ==
[~2018-06-05] VITALS: Ht 172.7 cm; Wt 104.3 kg
[2018-06-05 12:05] VITALS: BP 128/57
[2018-06-05] MEDS ORDERED: D5 LR IV SOLUTION 1,000 ML IV SCH ×2 (12:15→20:15)
[2018-06-05] MEDS ORDERED: CATHETER FLUSH 10 ML SYR IV PRN (12:30)
[2018-06-05] MEDS ORDERED: CARV25TA PO ×2 (13:42)
--- NOTE | 2018-06-05 13:45 | NUR ---
DEB COHN admitted to room 413-1, with an admitting diagnosis of DEHYDRATION, ACUTE KIDNEY INJURY, on 06/05/18 from DIRECT ADMIT via W/C, accompanied by SPOUSE.DEB COHN introduced to surroundings, call light, bed controls, phone, TV, temperature control, lights, meal times, smoking policy, visitor policy, side rail policy, bathrooms and showers. Patient Rights given to patient in the handbook. DEB COHN verbalizes understanding that [facility] is not responsible for the loss or damage to any personal effects or valuables that are kept in the patients posession during their hospitalization. DEB COHN verbalizes understanding of Interdisciplinary Patient Education. Patient and/or family were informed about the Rapid Response Team and its purpose.
[2018-06-05 13:46] LABS: MEAN PLATELET VOLUME 10.2 FL (7.4-10.4); RED CELL DISTRIBUTION WIDTH 17.4 % (10.0-14.5); WHITE BLOOD COUNT 12.8 10^3/uL (4.3-11.0)
--- NOTE | 2018-06-05 14:00 | NUR ---
NOTE THAT THIS RN ADVISED DR PHAN THAT STAFF WAS UNSUCCESSFUL IN GETTING IN STARTED AND THAT PICC LINE RN WAS CALLED TO PLACE IV ACCESS
[2018-06-05 14:10] LABS: ALANINE AMINOTRANSFERASE 24 U/L (0-55); ALBUMIN 3.5 GM/DL (3.2-4.5); ALKALINE PHOSPHATASE 79 U/L (40-136); BILIRUBIN,TOTAL 0.7 MG/DL (0.1-1.0); BUN/CREATININE RATIO 22; CALCIUM 9.8 MG/DL (8.5-10.1); CARBON DIOXIDE 23 MMOL/L (21-32); CHLORIDE 101 MMOL/L (98-107); CREATININE SERUM 0.77 MG/DL (0.60-1.30); GFR ESTIMATED > 60; GLUCOSE 120 MG/DL (70-105); POTASSIUM 3.7 MMOL/L (3.6-5.0); SODIUM 137 MMOL/L (135-145); TOTAL PROTEIN 6.1 GM/DL (6.4-8.2)
[2018-06-05] MEDS ORDERED: DEXA4TAB PO (15:27)
[2018-06-05] MEDS ORDERED: ONDA8TAB12 PO (15:27)
[2018-06-05] MEDS ORDERED: IRBE300T18 PO (15:27)
[2018-06-05] MEDS ORDERED: MULT1TAB69 PO (15:27)
[2018-06-05] MEDS ORDERED: CHOL500044 PO (15:27)
[2018-06-05] MEDS ORDERED: DIAZ5TAB3 PO (15:28)
[2018-06-05] MEDS ORDERED: TRAM50TA2 PO (15:28)
--- NOTE | 2018-06-05 15:29 | NUR ---
WENT OVER THE EXT MED HX WITH THE PATIENT AND SHE VERIFIED HOW SHE TAKES THEM.
--- NOTE | 2018-06-05 15:58 | History & Physical-Hospitalist ---
History of Present Illness HPI/Chief Complaint The patient is a 67-year-old white female who was admitted from Dr. Kirk's office with apparent dehydration. She had received her third course of chemotherapy for a resistant breast cancer last . She had had a previous breast cancer several years ago. She reported that she had a fall at home and had generally been ill. She had had contact with Dr. Kirk at his office but had apparently not been able to get sufficient fluids down. She had previously had a creatinine in March of 0.7 and yesterday it was 1.5. The BUN was 15 in March and 30 yesterday. She had attempted to increase her oral fluids at home. She finally gave up and agreed to admission for rehydration. She has been able to eat. Date Seen 06/05/18 Time Seen by a Provider: 15:57 Attending Physician Jg Kirk MD PCP Jg Kirk MD Referring Physician Date of Admission Jun 05, 2018 at 11:35 Home Medications & Allergies Home Medications Reviewed patient Home Medication Reconciliation performed by pharmacy medication reconciliations fish roe technician and/or nursing. Patients Allergies have been reviewed. Allergies Allergies Coded Allergies codeine (Verified Allergy, Mild, HALLUCINATIONS, 01/18/17) Past Ulfocfk-Cibcwm-Tudngz Hx Past Med/Social Hx: Reviewed Nursing Past Med/Soc Hx Patient Social History Alcohol Use: Denies Use Recreational Drug Use: No Physical Abuse Screen: No Sexual Abuse: No Recent Foreign Travel: No Contact w/other who traveled: No Recent Hopitalizations: No Recent Infectious Disease Expo: No Immunizations Up To Date Date of Pneumonia Vaccine: Jan 29, 2017 Date of Influenza Vaccine: Jan 29, 2018 Seasonal Allergies Seasonal Allergies: Yes Past Medical History Surgeries: Breast, Gallbladder, Tubal Ligation Cardiac: Cardiomyopathy, Chronic Edema/Swelling, Hypertension Reproductive: No Sexually Transmitted Disease: No HIV/AIDS: No Musculoskeletal: Arthritis Loss of Vision: Bilateral Hearing Impairment: Denies Cancer: Breast Did You Recieve Any Treatments: Yes What Type of Treatment Did You: Chemotherapy, Radiation, Surgical Intervention History of Blood Disorders: No Adverse Reaction to Blood Das: No (N/A) Review of Systems Constitutional: see HPI Respiratory: no symptoms reported, other (has started to cough a bit since admission today.) Cardiovascular: no symptoms reported Gastrointestinal: no symptoms reported Genitourinary: other (decreased urination) Musculoskeletal: no symptoms reported Skin: no symptoms reported Psychiatric/Neurological: No Symptoms Reported Physical Exam Physical Exam Vital Signs Capillary Refill : Height, Weight, BMI Height: 5'8.00" Weight: 230lbs. 0.0oz. 104.405687jm; 36.5 BMI Method:Stated General Appearance: WD/WN Eyes: Bilateral Eye Normal Inspection HEENT: Normal ENT Inspection Neck: Normal Inspection Respiratory: Chest Non Tender, Lungs Clear, Normal Breath Sounds, No Accessory Muscle Use, No Respiratory Distress Cardiovascular: Regular Rate, Rhythm, No Edema, No Gallop, No JVD, No Murmur, Normal Peripheral Pulses Gastrointestinal: Normal Bowel Sounds, No Organomegaly, No Pulsatile Mass, Non Tender, Soft Back: Normal Inspection, No CVA Tenderness, No Vertebral Tenderness Extremity: Normal Capillary Refill, Normal Inspection, Normal Range of Motion, Non Tender, No Calf Tenderness, No Pedal Edema Results Results/Procedures Labs Patient resulted labs reviewed. Assessment/Plan Admission Diagnosis 1.recurrent breast cancer with multiple resistances to therapy. 2.dehydration postchemotherapy Admission Status: Observation Assessment and Plan Fluid replacement Clinical Quality Measures DVT/VTE Risk/Contraindication: Risk Factor Score Per Nursin RFS Level Per Nursing on Admit: 3=High MIKKI PHAN MD Jun 05, 2018 15:57
--- NOTE | 2018-06-05 16:40 | NUR ---
PLEASE NOTE THE WHEN PT TO FLOOR ORDER FOR INFLUENZA A AND B - PT IS DROPLET ISOLATION UNTIL NASAL SWABS LAB SHOWED NEGATIVE FOR BOTH INFLU A &B
--- NOTE | 2018-06-05 18:12 | Diagnostic Imaging Report ---
EXAMINATION: CHEST (PA AND LATERAL) CLINICAL INDICATION: 67-year-old female, dehydration. COMPARISON: November 18, 2017. FINDINGS: Heart size and mediastinal contours are unchanged. There are aortic calcifications. There are surgical clips in the region of the left axilla. There are surgical clips overlying the right chest. There is no identified pneumothorax. There is no pleural effusion. There is no identified interval focal airspace consolidation. There are mild disc degenerative changes of the thoracic spine. IMPRESSION: 1. No identified acute cardiopulmonary abnormality. Dictated by: Dictated on workstation # [id number]
--- NOTE | 2018-06-05 18:37 | NUR ---
PT INSIST ON BEING DISMISSED HOME -- SHE WILL DO URINE SAMPLE PRIOR TO LEAVING -- PT'S VOICED THAT IF SHENEED FLUIDS HE WILL GET HOME HEALTH TO GIVE -- THIS RN CALLED DR PHAN AND HE VOICE IT WAS OK FOR PT TO GO HOME BUT IF SHE NEEDED TO COME BACK TO ER -- ADVISED PT AND SHE AGREED
[2018-06-05 19:30] VITALS: BP 128/57
[2018-06-05 19:48] LABS: BILIRUBIN,URINE NEGATIVE (NEGATIVE); CLARITY,URINE SLIGHTLY CLOUDY; COLOR,URINE YELLOW; GLUCOSE, URINE (UA) NEGATIVE (NEGATIVE); KETONES,URINE NEGATIVE (NEGATIVE); LEUKOCYTE ESTERASE ,URINE 3+ (NEGATIVE); NITRITE,URINE POSITIVE (NEGATIVE); PH,URINE 5 (5-9); PROTEIN,URINE 2+ (NEGATIVE); UROBILINOGEN,URINE NORMAL (NORMAL)
[2018-06-05 19:57] LABS: BACTERIA,URINE LARGE /HPF; WBC,URINE TNTC /HPF
== END 2018-06-05 19:02 | disposition home health service (06) ==
LOC: UNDOADMOB 11:35 → 4TH 11:35 → UNDODISOB 19:30
PROVIDERS: ADMIT Internal Medicine; ATTEND Internal Medicine
DX: E86.0 Dehydration (principal); C50.919 Malignant neoplasm of unspecified site of unspecified female breast; I10 Essential (primary) hypertension; I42.9 Cardiomyopathy, unspecified; R82.998 Other abnormal findings in urine; Z92.3 Personal history of irradiation; Z92.21 Personal history of antineoplastic chemotherapy; Z91.81 History of falling; Z88.5 Allergy status to narcotic agent
CPT/HCPCS: 36415; 71046; 80053; 81000; 85027; 87040; 87077; 87088; 87186; 87804; G0378

== ENCOUNTER → 2018-07-19 | Outpatient (CLI) | payer MEDICARE ==
[~2018-07-19] VITALS: Ht 172.7 cm; Wt 104.3 kg
[~2018-07-19] MED LIST changes: +CHOL500044 PO; +D5 NS 1000 ML IV SOLUTION 1,000 ML IV ONE; +DEXA4TAB PO; +DIAZ5TAB3 PO; +IRBE300T18 PO; +MULT1TAB69 PO; +ONDA8TAB12 PO; +TRAM50TA2 PO
[2018-07-19 11:30] LABS: HEMOGLOBIN 9.3 G/DL (11.5-16.0); MEAN PLATELET VOLUME 9.9 FL (7.4-10.4); RED CELL DISTRIBUTION WIDTH 16.1 % (10.0-14.5); WHITE BLOOD COUNT 12.3 10^3/uL (4.3-11.0)
[2018-07-19 11:33] VITALS: BP 99/48
[2018-07-19 11:50] LABS: CALCIUM 9.4 MG/DL (8.5-10.1); CREATININE SERUM 1.48 MG/DL (0.60-1.30); POTASSIUM 3.4 MMOL/L (3.6-5.0)
[2018-07-19] MEDS: D5 NS W/KCL 20 MEQ/L 1,000 ML IV SCH ×2 (12:31→14:30)
[2018-07-19 16:59] VITALS: BP 99/48
== END ==
LOC: SDC 10:52
PROVIDERS: ATTEND Internal Medicine
DX: E86.0 Dehydration (principal); I95.9 Hypotension, unspecified
CPT/HCPCS: 36415; 80048; 85027; 96360; 96361

== ENCOUNTER 2018-08-02 12:14 | Outpatient (CLI) | payer MEDICARE ==
[~2018-08-02] VITALS: Ht 172.7 cm; Wt 104.3 kg
[~2018-08-02 12:14] MED LIST changes: -D5 NS 1000 ML IV SOLUTION 1,000 ML IV ONE
[2018-08-02] MEDS ORDERED: D5 NS 1000 ML IV SOLUTION 1,000 ML IV ONE (12:45)
[2018-08-02] MEDS: NS IV 1000 ML 1,000 ML IV SCH ×2 (13:55→14:55)
[2018-08-02 15:56] VITALS: BP 126/56
== END 2018-08-02 15:56 | disposition home or self-care (01) ==
LOC: SDC 12:14
PROVIDERS: ATTEND Internal Medicine
DX: E86.0 Dehydration (principal)

== ENCOUNTER → 2019-07-16 | Outpatient (CLI) | payer MEDICARE ==
[~2019-07-16] MED LIST changes: -DIAZ5TAB3 PO; +DIAZ5TAB49 PO; +IRBE300T17 PO; -IRBE300T18 PO; -ONDA8TAB12 PO; +ONDA8TAB15 PO; -TRAM50TA2 PO; +TRM50T PO
--- NOTE | 2019-07-16 16:05 | Diagnostic Imaging Report ---
PROCEDURE: US Thyroid. TECHNIQUE: Multiple Real-time grayscale images were obtained of the thyroid in various projections. INDICATION: Right thyroid nodule. COMPARISON: No prior studies are available for comparison. FINDINGS: The right lobe of the thyroid measures 5.2 x 2.7 x 2.6 cm and the left lobe measures 4.0 x 1.4 x 1.1 cm. The isthmus is 3 mm in thickness. There is a mixed solid and cystic nodule involving the right thyroid lobe mid and upper aspect measuring 3.5 x 2.2 x 2.8 cm. No microcalcifications are seen. The left lobe contains several subcentimeter nodules with the largest measuring approximately 9 mm x 4 mm x 6 mm. IMPRESSION: Dominant mixed solid and cystic nodule involving the right lobe of the thyroid. Fine-needle aspiration could be performed. Dictated by: Dictated on workstation # [id number]
== END ==
LOC: RAD 14:57
PROVIDERS: ATTEND Internal Medicine
DX: E04.1 Nontoxic single thyroid nodule (principal)
CPT/HCPCS: 76536

== ENCOUNTER → 2019-09-11 | Outpatient (CLI) | payer MEDICARE ==
[~2019-09-11] VITALS: Ht 172.7 cm; Wt 107.7 kg
[~2019-09-11] MED LIST changes: +LIDOCAINE 1% INJ 20 ML 20 ML VIAL INJ ONE
--- NOTE | 2019-09-11 14:54 | Diagnostic Imaging Report ---
INDICATION: Right renal nodule. EXAMINATION: The patient presents for ultrasound-guided fine-needle aspiration. TECHNIQUE: The patient was brought to the procedure room and placed on the table in the supine position. Ultrasound imaging of the right neck was performed to evaluate for an appropriate entry site. The right neck was then prepped and draped in the usual sterile fashion. A small amount of 1% lidocaine was utilized for local anesthesia. A total of four passes was made into the dominant mixed solid and cystic mass in the right lobe of the thyroid utilizing 25-gauge needles and fine-needle aspiration technique. Hemostasis was obtained using manual compression. The patient tolerated the procedure well and left the Department in stable condition. IMPRESSION: Successful ultrasound guided fine needle aspiration of the dominant right lobe thyroid mass. Pathology results are currently pending. Dictated by: Dictated on workstation # [id number]
== END ==
LOC: RAD 13:35
PROVIDERS: ATTEND Otolaryngology Otolaryngology/Facial Plastic Surgery
DX: E04.1 Nontoxic single thyroid nodule (principal)

== ENCOUNTER → 2020-03-23 | Outpatient (CLI) | payer MEDICARE ==
[~2020-03-23] MED LIST changes: -LIDOCAINE 1% INJ 20 ML 20 ML VIAL INJ ONE; +MULT-567 PO; -MULT1TAB69 PO
--- NOTE | 2020-03-23 12:58 | Diagnostic Imaging Report ---
PROCEDURE: US right lower extremity venous. TECHNIQUE: Multiple real-time grayscale images were obtained over the right lower extremity in various projections. Additional spectral analysis and color Doppler duplex images were also obtained. INDICATION: DYSPNEA ON EXERTION, RLE EDEMA FINDINGS: The right common femoral, superficial femoral, popliteal veins and tibial veins demonstrate normal response to compression, augmentation, and Valsalva. There are no right lower extremity fluid collections or masses. IMPRESSION: No evidence of deep vein thrombosis in the right lower extremity. Dictated by: Dictated on workstation # [id number]
== END ==
LOC: RAD 11:39
PROVIDERS: ATTEND Nurse Practitioner Family
DX: R06.09 Other forms of dyspnea (principal); R60.0 Localized edema
CPT/HCPCS: 36415; 85379

== ENCOUNTER → 2020-03-25 | Outpatient (CLI) | payer MEDICARE ==
[~2020-03-25] MED LIST changes: +CATHETER FLUSH 10 ML SYR IV PRN
--- NOTE | 2020-03-25 10:17 | Diagnostic Imaging Report ---
Indication: Shortness of breath. Comparison made with prior examination from 06/05/18. FINDINGS: The heart size is upper limits of normal. There is some left basilar atelectasis and/or pneumonitis. There are postsurgical changes bilaterally in the axilla. There is no pneumothorax. Mediastinum is unremarkable IMPRESSION: Questionable left basilar atelectasis and/or pneumonitis otherwise unremarkable. Dictated by: Dictated on workstation # [id number]
--- NOTE | 2020-03-25 11:12 | Diagnostic Imaging Report ---
Indication: Dyspnea on exertion. TECHNIQUE: Acquisitions were acquired of the lungs after administration of 4.9 mCi of technetium 99m MAA. FINDINGS: There is essentially normal homogeneous uptake of isotope throughout both lungs. There are no segmental or subsegmental filling defects appreciated to suggest pulmonary embolism. Impression: IMPRESSION: Low probability for pulmonary embolism. Dictated by: Dictated on workstation # [id number]
== END ==
LOC: CARD 09:11
PROVIDERS: ATTEND Nurse Practitioner Family
DX: R06.02 Shortness of breath (principal)
CPT/HCPCS: 71046; 78580; A9540

== ENCOUNTER → 2020-03-31 | Outpatient (CLI) | payer MEDICARE ==
[~2020-03-31] MED LIST changes: -CATHETER FLUSH 10 ML SYR IV PRN
== END ==
LOC: LABNPT 06:11
PROVIDERS: ATTEND Internal Medicine
DX: R06.09 Other forms of dyspnea (principal); Z20.828 Contact with and (suspected) exposure to other viral communicable diseases
CPT/HCPCS: 87635

== ENCOUNTER → 2020-04-08 | Outpatient (CLI) | payer MEDICARE | LOC: CARD 09:25 | PROVIDERS: ATTEND Nurse Practitioner Family | DX: Z11.59 Encounter for screening for other viral diseases (principal); I08.3 Combined rheumatic disorders of mitral, aortic and tricuspid valves; I42.8 Other cardiomyopathies | CPT/HCPCS: 93306 ==

== ENCOUNTER → 2021-01-12 | Outpatient (CLI) | payer MEDICARE ==
[~2021-01-12] MED LIST changes: +GADOBUTROL 10 MMOL/10 ML (GADAVIST) VIAL IV ONE
--- NOTE | 2021-01-12 14:06 | Diagnostic Imaging Report ---
INDICATION: Postmenopausal state. COMPARISON: None available FINDINGS: AP Spine L1-L4: [BMD (g/cm2): 0.966] [T-Score: -1.9] [Z-Score: -1.2] [BMD Previous: na] [BMD % Change: na] LT Hip Neck: [BMD (g/cm2): 0.806] [T-Score: -1.7] [Z-Score: -0.6] LT Hip Total: [BMD (g/cm2):0.928] [T-Score:-0.6] [Z-Score: 0.1] [BMD Previous: na] [BMD % Change: na] RT Hip Neck: [BMD (g/cm2):0.731] [T-Score:-2.2] [Z-Score:-1.2] RT Hip Total: [BMD (g/cm2):0.816] [T-score:-1.5] [Z-Score:-0.8] [BMD Previous:na] [BMD % Change:na] *Indicates significant change from prior examination based on 95% confidence level. World Health Organization criteria for BMD interpretation classify patients as Normal (T-score at or above -1.0), Osteopenic (T-score between -1.0 and -2.5) or Osteoporotic (T-score at or below -2.5). LIMITATIONS AND MODIFICATION: None. FRACTURE RISK (FRAX SCORE): The ten year probability of (%): Major Osteoporotic Fracture: [12.1] Hip Fracture: [2.4] IMPRESSION: 1. Osteopenia (Low bone mass). 2. Baseline examination. 3. See below National Osteoporosis Foundation guidelines on when to potentially initiate pharmacologic therapy. Based on the National Osteoporosis Foundation Guidelines, pharmacologic treatment should be initiated in any of the following, unless clinical conditions suggest otherwise: * Any patient with prior fragility fracture of the hip or vertebrae. A spine fracture indicates 5X risk for subsequent spine fracture and 2X risk for subsequent hip fracture. * Osteoporosis (T-score <-2.5). * Postmenopausal women and men age 50 and older with low bone mass/osteopenia (T-score between -1.0 and -2.5) by DXA and 10-year major osteoporotic fracture greater than 20% or a 10-year probability of hip fracture greater than 3%. These fracture risks are supplied above in the FRAX score, if applicable. * Clinician judgement and/or patient preferences may indicate treatment for people with 10-year fracture probabilities above or below these levels. Dictated by: Dictated on workstation # [id number]
--- NOTE | 2021-01-12 16:51 | Diagnostic Imaging Report ---
Reason for examination: History of bilateral breast cancer, status post right mastectomy with subtotal mastectomy on the left. Comparison studies: Previous MRI study from an outside facility dated 02/23/2018. Previous outside mammogram images from 02/23/2018 from an outside facility. TECHNIQUE: Utilizing 1.5 Brenda Siemens magnet, patient was placed in a prone position with a 16 channel [employer]in[employer] dedicated breast coil utilized. Axial STIR and fat sat T2 precontrasted images and axial T1 with and without fat-sat images were obtained. Postcontrast high-resolution dynamic images were also obtained. Pre and post contrasted images are then evaluated with [email or web address] for evaluation of possible angiogenesis. 9 mL of Gadavist was injected. The left breast tissue is heterogeneous. There is mild background parenchymal enhancement. RIGHT CHEST WALL: There is no suspicious mass or non-mass enhancement in the right chest wall. Note is made of edema in the right chest wall, likely posttreatment change. LEFT BREAST: There is subtotal mastectomy on the left. There is 6 mm of enhancement in the skin of the left breast near a scar at the 10 o'clock position approximately 3 cm from the nipple. The possibility of skin metastasis has to be considered. There is also edema in the left breast and left chest wall likely from prior treatment changes. No other areas of suspicious mass or non-mass enhancement in the left breast. RAMIRO BASINS: There is no suspicious adenopathy in the bilateral regional ramiro basins. EXTRAMAMMARY FINDINGS: There is a 2.7 cm right thyroid mass. This does appear to have been previously biopsied. There is also pleural parenchymal thickening and scarring in the left chest wall with volume loss probably related to posttreatment changes as well. No masses are seen in the upper abdomen. IMPRESSION: 1. There is 6 mm of enhancement in the skin of the left breast upper inner quadrant at approximately the 10 o'clock position 3 cm from the nipple (images 88 and 89 of 210). This could all be related to postop and posttreatment changes but the possibility of a skin metastasis has to be considered. Recommend correlation with physical exam findings and focused ultrasound of the area might be helpful as well as skin punch biopsy. No other areas of suspicious mass or non-mass enhancement in the left breast. 2. No suspicious mass or non-mass enhancement in the right chest. 3. Edema in the chest wall probably related to posttreatment changes. 4. No suspicious adenopathy in the bilateral regional ramiro basins. No masses in the upper abdomen. ACR BI-RADS Category 0: Incomplete. (Needs additional imaging evaluation). Recommendations: Correlation with physical exam findings in the left breast upper inner quadrant 10:00, 3 cm from the nipple. Consider ultrasound correlation and/or skin punch biopsy to the area which probably correlates with an area of scarring. Dictated by: Dictated on workstation # [id number]
== END ==
LOC: RAD 12:59
PROVIDERS: ATTEND Internal Medicine Hematology & Oncology
DX: M85.80 Other specified disorders of bone density and structure, unspecified site (principal); M80.08XA Age-related osteoporosis with current pathological fracture, vertebra(e), initial encounter for fracture; N64.59 Other signs and symptoms in breast; R92.2 Inconclusive mammogram; Z53.20 Procedure and treatment not carried out because of patient's decision for unspecified reasons; Z17.0 Estrogen receptor positive status [ER+]; Z85.3 Personal history of malignant neoplasm of breast; Z90.13 Acquired absence of bilateral breasts and nipples
CPT/HCPCS: 77080; C8908; 77049

== ENCOUNTER → 2021-02-24 | Outpatient (CLI) | payer MEDICARE ==
[~2021-02-24] MED LIST changes: -GADOBUTROL 10 MMOL/10 ML (GADAVIST) VIAL IV ONE
--- NOTE | 2021-02-24 15:24 | Diagnostic Imaging Report ---
EXAMINATION: Ultrasound of the left breast limited. INDICATION: Abnormal MRI exam. COMPARISON: There are no prior mammographic studies or ultrasound examinations available for comparison. FINDINGS: The MRI breast exam performed on 01/12/2021 noted a 6 mm area of enhancement in the skin of the left breast in the upper inner quadrant. This was located at approximately the 10 o'clock position 3 cm from the nipple. The possibility that this finding was related to a metastatic focus within the skin was raised. On this exam, there is no discrete abnormality identified. There does seem to be generalized heterogeneous increased echogenicity of the breast tissue in this area and according to our sonologist the breast felt "hard". There is a small hypoechoic tract-like area extending towards the skin surface but there is no mass or abscess evident in this region. IMPRESSION: 1. There is no discrete abnormality to suggest malignancy. 2. If clinical concern regarding an underlying abnormality persists, however, then biopsy should still be considered. ACR BI-RADS Category 1: Negative. Dictated by: Dictated on workstation # [id number]
== END ==
LOC: RAD 10:45
PROVIDERS: ATTEND Nurse Practitioner Adult Health
DX: R92.8 Other abnormal and inconclusive findings on diagnostic imaging of breast (principal); Z85.3 Personal history of malignant neoplasm of breast
CPT/HCPCS: 76642

== ENCOUNTER 2022-02-15 17:02 | Inpatient (IN) | payer MEDICARE ==
[~2022-02-15] VITALS: Ht 172 cm; Wt 103.8 kg
[~2022-02-15 17:02] MED LIST changes: +ONDA-106 PO; -ONDA8TAB15 PO
--- NOTE | 2022-02-15 17:48 | ED Lower Extremity ---
General Chief Complaint: Lower Extremity Stated Complaint: KNEE PAIN Nursing Triage Note: PT BROUGHT TO ED VIA EMS FOR RT KNEE PAIN. PT WAS SITTING ON THE BENCH IN HER SHOWER AND WAS UNABLE TO STAND AGAIN. DENIES FALLS OR RECENT INJURY. PT BROUGHT TO ROOM 07. Source: patient, family (sons) (KHALIF KILPATRICK) History of Present Illness Date Seen by Provider: Feb 15, 2022 Time Seen by Provider: 05:25 Initial Comments This 71 year old female presents with bilateral lower extremity edema and right knee stiffness. Patient reports this morning she was sitting in her chair and was having a difficult time rising to a standing position due to leg weakness and right knee stiffness. Patient states her son and a close family friend came over to assist her. Patient states she was able to get up and move around with assistance. About an hour prior to arrival to the ED the patient tried to take a shower. She states she sat down on her shower chair and was not able to get back up due to right knee stiffness and bilateral leg weakness. Patient states she got on her hands and knees and crawled out of the shower. Patient states her son/family friend found her and contacted EMS. Patient denies chest pain, SOA, pain, N/V/D, or recent falls. Patient states that she has a PMHx of CHF for which she takes Lasix 40mg PRN. Patient admits to getting into a habit of not taking her Lasix regularly which causes lower extremity edema, heaviness, and contributes to her weakness. She states she has tried PT in the past without much aid. Patient states that since her 's passing she has been unmotivated, living alone, and sedentary for the majority of the day. Patient denies injury to her knee and states it "grinds and cracks" with ambulation. Patient denies previous knee surgeries, injuries, or ortho consultation. Patient states the crepitus/stiffness is primarily located on the lateral aspect of her right knee. Onset: just prior to arrival Severity: moderate (KHALIF KILPATRICK) Allergies and Home Medications Allergies Coded Allergies: codeine (Verified Allergy, Mild, HALLUCINATIONS, 01/18/17) Patient Home Medication List Home Medication List Reviewed: Yes (KHALIF KILPATRICK) Carvedilol (Carvedilol) 25 Mg Tablet, 25 MG PO DAILY, (Reported) Entered as Reported by: JOSE E SUTTON on 06/05/18 1342 Carvedilol (Carvedilol) 25 Mg Tablet, 50 MG PO HS, (Reported) Entered as Reported by: JOSE E SUTTON on 06/05/18 1342 Cholecalciferol (Vitamin D3) (Vitamin D3) 5,000 Unit Tablet, 10,000 UNIT PO DAILY, (Reported) Entered as Reported by: JOSE E SUTTON on 06/05/18 1527 Dexamethasone (Dexamethasone) 4 Mg Tablet, 8 MG PO UD, (Reported) Entered as Reported by: JOSE E SUTTON on 06/05/18 152 Diazepam (Diazepam) 5 Mg Tablet, 5 MG PO Q6H PRN for ANXIETY, (Reported) Entered as Reported by: JOSE E SUTTON on 06/05/18 152 Irbesartan (Irbesartan) 300 Mg Tablet, 300 MG PO HS, (Reported) Entered as Reported by: JOSE E SUTTON on 06/05/18 152 Multivitamin (Multivitamins) 1 Each Tablet, 1 TAB PO DAILY, (Reported) Entered as Reported by: JOSE E SUTTON on 06/05/18 152 Ondansetron HCl (Ondansetron HCl) 8 Mg Tablet, 8 MG PO TID PRN for NAUSEA/VOMITING-1ST LINE, (Reported) Entered as Reported by: JOSE E SUTTON on 06/05/18 152 Tramadol HCl (Tramadol HCl) 50 Mg Tablet, 50 MG PO Q6H PRN for PAIN-MODERATE, (Reported) Entered as Reported by: JOSE E SUTTON on 06/05/18 1528 Review of Systems Constitutional: weakness EENTM: no symptoms reported Respiratory: no symptoms reported Cardiovascular: edema (bilateral lower extremity edema) Gastrointestinal: no symptoms reported Genitourinary: no symptoms reported : No Musculoskeletal: other (right knee stiffness/crepitus with movement) Skin: no symptoms reported Psychiatric/Neurological: No Symptoms Reported (KHALIF KILPATRICK) All Other Systems Reviewed Negative Unless Noted: Yes (KHALIF KILPATRICK) Past Wasdgow-Jajsfc-Dcfonr Hx Patient Social History Tobacco Use?: No Smoking Status: Former Smoker Substance use?: No Alcohol Use?: No Pt feels they are or have been: No (KHALIF KILPATRICK) Immunizations Up To Date First/Initial COVID19 Vaccinat: 2020 Second COVID19 Vaccination [place]: 2020 COVID19 Vaccine Director Of Physical Therapy: KRISTI (KHALIF KILPATRICK) Seasonal Allergies Seasonal Allergies: Yes (KHALIF KILPATRICK) Past Medical History Surgery/Hospitalization HX: PMH;CHF AND PACEMAKER/DEF. SURGERY; LUMPECTOMY ON LEFT SIDE, RT SIDE MASTECTOMY, AND GALLBLADDER. Surgeries: Yes (LUMPECTOMY-LEFT BREAST) Breast, Gallbladder, Tubal Ligation Respiratory: No Cardiac: Yes (CHF; NON-ISCHEMIC CARDIOMYOPATHY. 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 Disorders: No Sexually Transmitted Disease: No HIV/AIDS: No Genitourinary: No Gastrointestinal: No Musculoskeletal: Yes Arthritis Endocrine: No HEENT: No Loss of Vision: Bilateral Hearing Impairment: Denies Cancer: Yes (LEFT LUMPECTOMY, CHEMO AND RADIATION--DX IN 1980) Breast Did You Recieve Any Treatments: Yes What Type of Treatment Did You: Chemotherapy, Radiation, Surgical Intervention Psychosocial: No Integumentary: No Blood Disorders: No Adverse Reaction/Blood Tranf: No (N/A) (KHALIF KILPATRICK) Physical Exam Vital Signs Vital Signs - First Documented 02/15/22 17:02 Temp 36.3 Pulse 112 Resp 18 B/P (MAP) 110/63 (79) Pulse Ox 96 O2 Delivery Room Air (CHRISTINE EARLY APRN) Vital Signs Capillary Refill : Less Than 3 Seconds (KHALIF KILPATRICK) Height, Weight, BMI Height: 5'8.00" Weight: 230lbs. 0.0oz. [id number]; 30.00 BMI Method:Stated General Appearance: WD/WN, no apparent distress HEENT: PERRL/EOMI Cardiovascular: other (pacemaker/defibrillator visible under patient's skin, 4/6 systolic murmur) Respiratory: decreased breath sounds, rhonchi (left lung [place]) Gastrointestinal: normal bowel sounds, non tender, soft Knees: bilateral knee non-tender, bilateral knee normal range of motion, bilateral knee swelling; right knee other Ankles: bilateral ankle swelling (+3 edema bilaterally) Neurologic/Psychiatric: alert, oriented x 3 Skin: normal color, warm/dry, other (redness on bilateral patellas due to patient crawling out of the shower prior to arrival) Lymphatic: no adenopathy (KHALIF KILPATRICK) Progress/Results/Core Measures Results/Orders Lab Results Laboratory Tests Test 02/15/22 18:30 02/15/22 19:35 Range/Units White Blood Count 6.5 4.3-11.0 10^3/uL Red Blood Count 4.62 3.80-5.11 10^6/uL Hemoglobin 12.5 11.5-16.0 g/dL Hematocrit 40 35-52 % Mean Corpuscular Volume 87 80-99 fL Mean Corpuscular Hemoglobin 27 25-34 pg Mean Corpuscular Hemoglobin Concent 31 L 32-36 g/dL Red Cell Distribution Width 16.9 H 10.0-14.5 % Platelet Count 155 130-400 10^3/uL Mean Platelet Volume 10.5 9.0-12.2 fL Immature Granulocyte % (Auto) 0 % Neutrophils (%) (Auto) 75 42-75 % Lymphocytes (%) (Auto) 14 12-44 % Monocytes (%) (Auto) 10 0-12 % Eosinophils (%) (Auto) 1 0-10 % Basophils (%) (Auto) 1 0-10 % Neutrophils # (Auto) 4.9 1.8-7.8 10^3/uL Lymphocytes # (Auto) 0.9 L 1.0-4.0 10^3/uL Monocytes # (Auto) 0.6 0.0-1.0 10^3/uL Eosinophils # (Auto) 0.0 0.0-0.3 10^3/uL Basophils # (Auto) 0.0 0.0-0.1 10^3/uL Immature Granulocyte # (Auto) 0.0 0.0-0.1 10^3/uL Sodium Level 144 135-145 MMOL/L Potassium Level 4.1 3.6-5.0 MMOL/L Chloride Level 110 H 98-107 MMOL/L Carbon Dioxide Level 25 21-32 MMOL/L Anion Gap 9 5-14 MMOL/L Blood Urea Nitrogen 13 7-18 MG/DL Creatinine 0.84 0.60-1.30 MG/DL Estimat Glomerular Filtration Rate 75 BUN/Creatinine Ratio 15 Glucose Level 91 70-105 MG/DL Calcium Level 9.8 8.5-10.1 MG/DL Corrected Calcium 10.4 H 8.5-10.1 MG/DL Total Bilirubin 3.4 H 0.1-1.0 MG/DL Aspartate Amino Transf (AST/SGOT) 13 5-34 U/L Alanine Aminotransferase (ALT/SGPT) 13 0-55 U/L Alkaline Phosphatase 70 40-136 U/L B-Type Natriuretic Peptide 2292.6 H <100.0 PG/ML Total Protein 5.8 L 6.4-8.2 GM/DL Albumin 3.2 3.2-4.5 GM/DL Urine Color DARK YELLOW Urine Clarity SL CLOUDY Urine pH 6.0 5-9 Urine Specific [place] 1.020 1.016-1.022 Urine Protein 2+ H NEGATIVE Urine Glucose (UA) NEGATIVE NEGATIVE Urine Ketones 3+ H NEGATIVE Urine Nitrite POSITIVE H NEGATIVE Urine Bilirubin NEGATIVE NEGATIVE Urine Urobilinogen 0.2 < = 1.0 MG/DL Urine Leukocyte Esterase 2+ H NEGATIVE Urine RBC (Auto) 3+ H NEGATIVE Urine RBC NONE /HPF Urine WBC 50-100 H /HPF Urine Squamous Epithelial Cells NONE /HPF Urine Renal Epithelial Cells NONE /HPF Urine Crystals PRESENT H /LPF Urine Amorphous Sediment MOD EDUARDO URATES H /LPF Urine Bacteria LARGE H /HPF Urine Casts NONE /LPF Urine Mucus NEGATIVE /LPF Urine Culture Indicated YES (CHRISTINE EARLY APRN) My Orders Orders - CHRISTINE EARLY APRN Knee, Right, 3 Views (02/15/22 17:26) Cbc With Automated Diff (02/15/22 18:23) Comprehensive Metabolic Panel (02/15/22 18:23) Chest 1 View, Ap/Pa Only (02/15/22 18:23) Ua Culture If Indicated (02/15/22 18:23) Bnp [place] (02/15/22 18:23) Furosemide Injection (Lasix Injection) (02/15/22 19:30) Urine Culture (02/15/22 19:35) (CHRISTINE EARLY APRN) Medications Given in ED Current Medications Medications Dose Ordered Sig/Merle Route Start Time Stop Time Status Last Admin Dose Admin Furosemide 40 mg ONCE ONCE IVP 02/15/22 19:30 02/15/22 19:31 DC 02/15/22 19:40 40 MG (CHRISTINE EARLY APRN) Vital Signs/I&O 02/15/22 17:02 Temp 36.3 Pulse 112 Resp 18 B/P (MAP) 110/63 (79) Pulse Ox 96 O2 Delivery Room Air (CHRISTINE EARLY APRN) Blood Pressure Mean: 79 Progress Progress Note : Progress Note Reports last ECHO [address] Woodward in [place], EF 15% at that time. Has not taken Lasix due to Labs reviewed, BNP >2200, elevated TBili likely secondary to CHF. No elevation in WBC, Hgb stable, CXR clear. Given Lasix 40mg IVP in ED. Haddad ordered for strict I/O and limited mobility. Reviewed case with Dr. Kirk, will admit inpatient medical. (CHRISTINE EARLY APRN) Diagnostic Imaging Diagonstic Imaging: X[facility] [place] [place] NAME: DEB COHN [facility] REC#: [id number] PT STATUS: REG ER : 1950 PHYSICIAN: CHRISTINE EARLY APRN ADMIT DATE: 02/15/22/ER Signed Date of Exam:02/15/22 KNEE, RIGHT, 3 VIEWS INDICATION: 71-year-old female with right knee pain. COMPARISONS: None. FINDINGS: Three views of the right knee show severe degenerative changes of the right knee with endplate sclerosis with marginal osteophytes. There is narrowing of the lateral compartment joint space. There is no evidence of acute fracture or subluxation seen. IMPRESSION: Moderate degenerative changes of the right knee with lateral compartment narrowing and marginal osteophytes. No evidence of acute fracture or subluxation seen. Dictated by: Dictated on workstation # [id number] Dict: 02/15/[id number] Trans: 02/15/22 1800 [id number] Interpreted by: KATEY VERMA MD Electronically signed by: KATEY VERMA MD 02/15/22 1800 Comments [facility] [place] [place] NAME: DEB COHN [facility] REC#: [id number] PT STATUS: REG ER : 1950 PHYSICIAN: CHRISTINE EARLY APRN ADMIT DATE: 02/15/22/ER Signed Date of Exam:02/15/22 CHEST 1 VIEW, AP/PA ONLY EXAMINATION: Chest, one view. HISTORY: Short of breath. COMPARISON: 11/18/2017. FINDINGS: Heart size is normal. No edema or pneumonia. No pleural effusion or pneumothorax. Defibrillator is present. Surgical clips are present in the chest wall. IMPRESSION: 1. Clear lungs. Dictated by: Dictated on workstation # [id number] Dict: 02/15/221910 Trans: 02/15/221941 [id number] Interpreted by: AUSTIN OLSEN MD Electronically signed by: AUSTIN OLSEN MD 02/15/221941 (CHRISTINE EARLY DEVELOPMENTAL MATHEMATICS PROFESSOR) Departure Communication (Admissions) Time/Spoke to Admitting Phy: 19:24 Dr. Kirk (CHRISTINE EARLY APRN) Impression Primary Impression: Acute exacerbation of CHF (congestive heart failure) Additional Impression: Generalized weakness Disposition: ADMITTED INPATIENT Condition: Stable Admissions Decision to Admit Reason: Admit from ER (General) Decision to Admit/Date: Feb 15, 2022 Time/Decision to Admit Time: 19:20 (CHRISTINE EARLY APRN) Departure-Patient Inst. Referrals: CAROLYNN KIRK MD (PCP/Family) Primary Care Physician Care assumed at 1800. I have personally examined the patient and agree with alva chávez of [facility] unless otherwise indicated. A/O x4, breathing easy, unlabored. Head normocephalic, PERRL, no icterus. Diminished breath sounds bilaterally, crackles left base. HRRR, 4/6 systolic murmur. No rubs. ABD soft, non tender, normoactive bowel sounds. Bilateral lower ext 2+ edema. Skin pink, warm, dry. Bilateral knee non tender, no erythema, warmth or swelling. Right knee crepitus. (CHRISTINE EARLY DEVELOPMENTAL MATHEMATICS PROFESSOR) ATTENDING PHYSICIAN NOTE: I was physically present as attending physician in the emergency department during the care of this patient, but I was not directly involved in the decision making or delivery of care for this patient. [facility] initially interviewed and examined this patient. Report was then given to Christine Early NP. (ROLANDA HOLDER MD) KHALIF KILPATRICK Feb 15, 2022 17:48 CHRISTINE EARLY APRN Feb 15, 2022 20:09 ROLANDA HOLDER MD Feb 15, 2022 20:25
--- NOTE | 2022-02-15 17:58 | Diagnostic Imaging Report ---
INDICATION: 71-year-old female with right knee pain. COMPARISONS: None. FINDINGS: Three views of the right knee show severe degenerative changes of the right knee with endplate sclerosis with marginal osteophytes. There is narrowing of the lateral compartment joint space. There is no evidence of acute fracture or subluxation seen. IMPRESSION: Moderate degenerative changes of the right knee with lateral compartment narrowing and marginal osteophytes. No evidence of acute fracture or subluxation seen. Dictated by: Dictated on workstation # [id number]
[2022-02-15 18:39] LABS: BASOPHILS % (AUTO) 1 % (0-10); EOSINOPHILS % (AUTO) 1 % (0-10); HEMATOCRIT 40 % (35-52); HEMOGLOBIN 12.5 g/dL (11.5-16.0); LYMPHOCYTES # (AUTO) 0.9 10^3/uL (1.0-4.0); LYMPHOCYTES % (AUTO) 14 % (12-44); MEAN CORPUSCULAR HEMOGLOBIN 27 pg (25-34); MEAN CORPUSCULAR HGB CONC 31 g/dL (32-36); MEAN CORPUSCULAR VOLUME 87 fL (80-99); MEAN PLATELET VOLUME 10.5 fL (9.0-12.2); MONOCYTES # (AUTO) 0.6 10^3/uL (0.0-1.0); MONOCYTES % (AUTO) 10 % (0-12); NEUTROPHILS # (AUTO) 4.9 10^3/uL (1.8-7.8); NEUTROPHILS % (AUTO) 75 % (42-75); PLATELET COUNT 155 10^3/uL (130-400); WHITE BLOOD COUNT 6.5 10^3/uL (4.3-11.0)
[2022-02-15 18:51] LABS: ALBUMIN 3.2 GM/DL (3.2-4.5)
[2022-02-15 18:52] LABS: POTASSIUM 4.1 MMOL/L (3.6-5.0)
[2022-02-15 18:53] LABS: CALCIUM 9.8 MG/DL (8.5-10.1)
[2022-02-15 18:54] LABS: TOTAL PROTEIN 5.8 GM/DL (6.4-8.2)
[2022-02-15 18:56] LABS: BILIRUBIN,TOTAL 3.4 MG/DL (0.1-1.0)
[2022-02-15 18:58] LABS: CREATININE SERUM 0.84 MG/DL (0.60-1.30)
--- NOTE | 2022-02-15 19:13 | Diagnostic Imaging Report ---
EXAMINATION: Chest, one view. HISTORY: Short of breath. COMPARISON: 11/18/2017. FINDINGS: Heart size is normal. No edema or pneumonia. No pleural effusion or pneumothorax. Defibrillator is present. Surgical clips are present in the chest wall. IMPRESSION: 1. Clear lungs. Dictated by: Dictated on workstation # [id number]
[2022-02-15] MEDS ORDERED: FUROSEMIDE 40 MG/4 ML INJ (LASIX) IVP ONE (19:30)
[2022-02-15 19:41] LABS: BILIRUBIN,URINE NEGATIVE (NEGATIVE); CLARITY,URINE SL CLOUDY; COLOR,URINE DARK YELLOW; GLUCOSE, URINE (UA) NEGATIVE (NEGATIVE); KETONES,URINE 3+ (NEGATIVE); LEUKOCYTE ESTERASE ,URINE 2+ (NEGATIVE); NITRITE,URINE POSITIVE (NEGATIVE); PROTEIN,URINE 2+ (NEGATIVE)
[2022-02-15 19:48] LABS: AMORPHOUS SEDIMENT,UR MOD AMOR URATES /LPF; BACTERIA,URINE LARGE /HPF; WBC,URINE 50-100 /HPF
[2022-02-15 21:09] VITALS: BP 119/75
[2022-02-15 22:52] VITALS: BP 110/63
[2022-02-15] MEDS ORDERED: RT-ALBUTEROL SULF 2.5 MG/3 ML PRE-MIX VIAL INH PRN (23:15)
[2022-02-15 23:28] VITALS: BP 102/68
[2022-02-16] VITALS (7 sets, daily range): BP systolic 84–106; BP diastolic 45–66
[2022-02-16] MEDS: ACETAMINOPHEN 325 MG TABLET PO PRN ×2 (00:10→17:55)
[2022-02-16] MEDS ORDERED: ONDANSETRON 4 MG/2 ML (SDV) Z0FRAN IV PRN (00:15)
[2022-02-16] MEDS ORDERED: CATHETER FLUSH 10 ML SYR IVP PRN (00:15)
[2022-02-16 06:18] LABS: BASOPHILS # (AUTO) 0.1 10^3/uL (0.0-0.1); BASOPHILS % (AUTO) 1 % (0-10); EOSINOPHILS # (AUTO) 0.1 10^3/uL (0.0-0.3); EOSINOPHILS % (AUTO) 2 % (0-10); HEMATOCRIT 39 % (35-52); LYMPHOCYTES # (AUTO) 2.1 10^3/uL (1.0-4.0); LYMPHOCYTES % (AUTO) 35 % (12-44); MEAN CORPUSCULAR HEMOGLOBIN 27 pg (25-34); MEAN CORPUSCULAR HGB CONC 31 g/dL (32-36); MEAN CORPUSCULAR VOLUME 86 fL (80-99); MEAN PLATELET VOLUME 11.1 fL (9.0-12.2); MONOCYTES # (AUTO) 0.7 10^3/uL (0.0-1.0); MONOCYTES % (AUTO) 12 % (0-12); NEUTROPHILS % (AUTO) 51 % (42-75); PLATELET COUNT 143 10^3/uL (130-400); WHITE BLOOD COUNT 5.8 10^3/uL (4.3-11.0)
[2022-02-16] MEDS: KCL 20 MEQ TAB (K-DUR) PO SCH (06:21)
[2022-02-16 06:43] LABS: CALCIUM 9.6 MG/DL (8.5-10.1); CREATININE SERUM 0.84 MG/DL (0.60-1.30); POTASSIUM 3.8 MMOL/L (3.6-5.0)
[2022-02-16] MEDS: CATHETER FLUSH 10 ML SYR IVP SCH ×3 (06:46→21:40)
[2022-02-16] MEDS ORDERED: FUROSEMIDE 40 MG/4 ML INJ (LASIX) IV SCH (07:00)
[2022-02-16] MEDS ORDERED: FLU QUAD HIGH DOSE 240 MCG/0.7 ML 2022-23 (FLUZONE) IM ONE (07:45)
[2022-02-16] MEDS: cefTRIAXone 1 GM PRE-MIX 50 ML IV SCH (08:50)
[2022-02-16] MEDS ORDERED: LOSARTAN 100 MG (COZAAR) TABLET PO SCH (09:00)
[2022-02-16] MEDS ORDERED: MECLIZINE 25 MG (ANTIVERT) TAB PO PRN (11:00)
--- NOTE | 2022-02-16 11:28 | Physical Therapy Evaluation ---
PT Evaluation-General Medical Diagnosis Admission Date Feb 15, 2022 at 20:07 Medical Diagnosis: CHF exacerbation Onset Date: Feb 15, 2022 Therapy Diagnosis Therapy Diagnosis: impaired mobility, strength Height/Weight Height (Feet): 5 Height (Inches): 8.00 Weight (Pounds): 230 Weight (Ounces): 0.0 Precautions Precautions/Isolations: Standard Precautions Weight Bear Status Right Lower Extremity: Right Weight Bearing/Tolerated Left Lower Extremity: Left Weight Bearing/Tolerated Referral Physician: Melia Reason for Referral: Evaluation/Treatment Medical History Additional Medical History Past Medical History Surgery/Hospitalization HX: PMH;CHF AND PACEMAKER/DEF. SURGERY; LUMPECTOMY ON LEFT SIDE, RT SIDE MASTECTOMY, AND GALLBLADDER. Surgeries: Yes (LUMPECTOMY-LEFT BREAST) Breast, Gallbladder, Tubal Ligation Respiratory: No Cardiac: Yes (CHF; NON-ISCHEMIC CARDIOMYOPATHY. 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 Disorders: No Sexually Transmitted Disease: No HIV/AIDS: No Genitourinary: No Gastrointestinal: No Musculoskeletal: Yes Arthritis Endocrine: No HEENT: No Loss of Vision: Bilateral Hearing Impairment: Denies Cancer: Yes (LEFT LUMPECTOMY, CHEMO AND RADIATION--DX IN 1980) Breast Did You Recieve Any Treatments: Yes What Type of Treatment Did You: Chemotherapy, Radiation, Surgical Intervention Psychosocial: No Integumentary: No Blood Disorders: No Adverse Reaction/Blood Tranf: No (N/A) Reviewed History: Yes Social History Current Living Status: Alone Entry Into Home: Ramp (from garage) Prior Prior Level of Function SCALE: Activities may be completed with or without assistive devices. 6-Mvxbxykjpe-ctawtzg completes the activity by him/herself with no assistance from a helper. 5-Set-up or Clean-up Assistance-helper sets up or cleans up; patient completes activity. [place] assists only prior to or following the activity. 4-Supervision or Touching Assistance-helper provides verbal cues and/or touching/steadying and/or contact guard assistance as patient completes activity. Assistance may be provided throughout the activity or intermittently. 3-Partial/Moderate Assistance-helper does LESS THAN HALF the effort. [place] lifts, holds or supports trunk or limbs, but provides less than half the effort. 2-Substantial/Maximal Assistance-helper does MORE THAN HALF the effort. [place] lifts or holds trunk or limbs and provides more than half the effort. 8-Pyrrzevuo-zjhinc does ALL the effort. Patient does none of the effort to complete the activity. Or, the assistance of 2 or more helpers is required for the patient to complete the activity. If activity was not attempted, code reason: 7-Patient Refused. 9-Not Applicable-not attempted and the patient did not perform the activity before the current illness, exacerbation or injury. 10-Not Attempted due to Environmental Limitations-(lack of equipment, weather restraints, etc.). 88-Not Attempted due to Medical Conditions or Safety Concerns. Bed Mobility: 6 Transfers (B,C,W/C): 6 Gait: 6 Indoor Mobility (Ambulation): Independent 4 wheeled walker PT Evaluation-Current Subjective Patient in bed pre tx, agrees to PT, has unrated pain in right knee, patient states it grinds a lot on the lateral side. Pt/Family Goals to be independent at home Objective Patient Orientation: Person, Place, Situation Attachments: Haddad Catheter ROM/Strength ROM Lower Extremities limited generally due to LE edema Strength Lower Extremities LLE (hip flexion 4/5, knee flexion 4/5, knee extension 4/5, dorsiflexion 4/5), RLE (hip flexion 3-/5, knee flexion 3/5, knee extension 3/5, dorsiflexion 3+/5) Sensory Vision: Wears Glasses Hearing: Functional Sensation Right Lower Extremit: Intact Sensation Left Lower Extremity: Intact Transfers Roll Left to Right (QC): 3 Lying to Sitting/Side of Bed(Q: 3 Sit to Stand (QC): 3 Min assist for supine to sit. After sitting patient was a little dizzy, remained that way even with sitting for a few minutes. Patient stood with min assist and was able to take a few sidesteps toward the head of the bed and sit back down. Patient states she was slightly dizzy the whole time. Balance Sitting Static: Normal Sitting Dynamic: Normal Standing Static: Good Standing Dynamic: Good Treatment BLE seated exercises x20 (AP, LAQ) Assessment/Needs Patient sitting EOB post tx, will start working with OT right now. Patient has impaired mobility, strength, pain with activity in right knee, dizziness. Min assist for mobility. Rehab Potential: Fair PT [employer] Goals Fdc Goals PT Fdc Goals Time Frame: Feb 23, 2022 Roll Left & Right (QC): 4 (SBA) Sit to Lying (QC): 4 (SBA) Lying-Sitting on Side/Bed(QC): 4 (SBA) Sit to Stand (QC): 4 (SBA) Walk 10 feet (QC): 4 (SBA) Walk 50ft with 2 Turns (QC): 4 (SBA) PT Plan Problem List Problem List: Activity Tolerance, Functional Strength, Safety, Balance, Gait, Transfer, Bed Mobility, ROM Treatment/Plan Treatment Plan: Continue Plan of Care Treatment Plan: Bed Mobility, Education, Functional Activity Jamir, Functional Strength, Gait, Safety, Therapeutic Exercise, Transfers Treatment Duration: Feb 23, 2022 Frequency: 6 times per week Estimated Hrs Per Day: .25 hour per day Patient and/or Family Agrees t: Yes Safety Risks/Education Patient Education: Gait Training, Transfer Techniques, Correct Positioning, Safety Issues Teaching Recipient: Patient Teaching Methods: Demonstration, Discussion Response to Teaching: Reinforcement Needed Discharge Recommendations Plan Patient will perform bed mobility and transfer training, balance and endurance training, functional strengthening, stair training, gait training, and education, to improve functional mobility and independence at home. Therapy Discharge Recommendati: Home & Family, Post Acute PT Time/GCodes Time In: 1056 Time Out: 1108 Total Billed Treatment Time: 12 Total Billed Treatment 1 visit ZOFIA CAGE PT Feb 16, 2022 11:28
--- NOTE | 2022-02-16 11:45 | Occupational Therapy Eval ---
OT Evaluation-General/PLF Medical Diagnosis Admission Date Feb 15, 2022 at 20:07 Medical Diagnosis: CHF exacerbation Onset Date: Feb 15, 2022 Therapy Diagnosis Therapy Diagnosis: Reduced ADL status Height/Weight Height (Feet): 5 Height (Inches): 8.00 Weight (Pounds): 230 Weight (Ounces): 0.0 Precautions Precautions/Isolations: Standard Precautions Referral Physician: Melia Referral Reason: Evaluation/Treatment Medical History Pertinent Medical History: Arthritis, Heart Failure, HTN Additional Medical History pacemaker Current History Pt was brought in by EMS due to not being able to get up off floor. Pt lives alone and has family members come in to check on her and assist as needed. She had her sister and son in the room during the eval. During the eval questions, there were multiple questions that were asked that pt would answer and family members were behind her shaking her head no. Family did not speak up for most questions they disagreed with. Pt reported that she was independent with all ADLs, and only cooked frozen meals, unless family brought her something else. She reported having a cleaning lady come in every other week. She reported that she was driving just last week, although family disagreed and stated that she hadn't been driving for the last 4-6 weeks. She does [address] or has family bring her groceries. She uses a rollator at home. Reviewed History: Yes Social History Home: Single Level Current Living Status: Alone Entry Into Home: Ramp (from garage) ADL-Prior Level of Function SCALE: Activities may be completed with or without assistive devices. 0-Vmsmhepaqi-ecrecmo completes the activity by him/herself with no assistance from a helper. 5-Set-up or Clean-up Assistance-helper sets up or cleans up; patient completes activity. [place] assists only prior to or following the activity. 4-Supervision or Touching Assistance-helper provides verbal cues and/or touching/steadying and/or contact guard assistance as patient completes activity. Assistance may be provided throughout the activity or intermittently. 3-Partial/Moderate Assistance-helper does LESS THAN HALF the effort. [place] lifts, holds or supports trunk or limbs, but provides less than half the effort. 2-Substantial/Maximal Assistance-helper does MORE THAN HALF the effort. [place] lifts or holds trunk or limbs and provides more than half the effort. 9-Omoevkjcq-uerdri does ALL the effort. Patient does none of the effort to complete the activity. Or, the assistance of 2 or more helpers is required for the patient to complete the activity. If activity was not attempted, code reason: 7-Patient Refused. 9-Not Applicable-not attempted and the patient did not perform the activity before the current illness, exacerbation or injury. 10-Not Attempted due to Environmental Limitations-(lack of equipment, weather restraints, etc.). 88-Not Attempted due to Medical Conditions or Safety Concerns. Self Care: Independent (Although family disagreed, but never spoke up as to what she needs help with) Functional Cognition: Needed Some Help DME/Equipment: Bath Bench, Shower OT Current Status Subjective Pt standing up with PT upon arrival. Pt agreeable to therapy eval. Sister and son was in the room as well. Appearance Pt left lying in bed with all needs within reach. Mental Status/Objective Patient Orientation: Person, Place, Time Attachments: Haddad Catheter, IV Current Glasses/Contacts: Yes Hearing Aids: No Dentures/Partials: No Hand Dominance: Right Upper Extremity ROM WFL ~165 degrees at shoulders Upper Extremity Strength 3-/5 at shoulders Vp Security strength: moderately impaired Edema: Increased R LE edema ADL-Treatment Lower Body Dressing (QC): 3 (mod assist: per clinical judgement) On/Off Footwear (QC): 3 (mod assist) Sit<>stand: min assist. Once standing, pt c/o of dizziness which lasted several minutes while standing. Pt took 4-5 side steps towards HOB. Pt able to doff/don L sock with figure 4 method, but unable to reach or pull up R leg/foot into figure 4, secondary to limited ROM, edema, and weakness. Pt declines brushing t eeth now, but would like to later. Pt declined all other ADL options. Sit>supine: mod assist with help of feet/legs. Education OT Patient Education: Correct positioning, Modified ADL techniques, Progress toward Goal/Update tx plan, Purpose of tx/functional activities, Reviewed precautions, Rehab process, Safety issues Teaching Recipient: Patient Teaching Methods: Discussion Response to Teaching: Verbalize Understanding OT Transition Social Worker Goals Care Home Goals Time Frame: Mar 02, 2022 Oral Hygiene (QC): 5 Toileting Hygiene (QC): 4 Shower/Bathe Self (QC): 4 Upper Body Dressing (QC): 4 Lower Body Dressing (QC): 4 On/Off Footwear (QC): 4 Additional Goals: 1-Demonstrate ADL Tasks, 2-Verbalize Understanding, 3-ImproveStrength/Jamir 1=Demonstrate adherence to instructed precautions during ADL tasks. 2=Patient will verbalize/demonstrate understanding of assistive devices/modifications for ADL. 3=Patient will improve strength/tolerance for activity to enable patient to perform ADL's. OT Education/Plan Problem List/Assessment Assessment: Decreased Activ Tolerance, Decreased Safety Aware, Decreased UE Strength, Edema, Impaired Bed Mobility, Impaired Coordination, Impaired Funct Balance, Impaired I ADL's, Impaired Self-Care Skills, Restricted Funct UE ROM Discharge Recommendations Plan/Recommendations: Continue POC Therapy Discharge Recommendati: Meals on Wheels, Bath Aide, Homemaker Support Comment ongoing assessment Treatment Plan/Plan of Care Treatment,Training & Education: Yes Patient would benefit from OT for education, treatment and training to promote independence in ADL's, mobility, safety and/or upper extremity function for ADL's. Plan of Care: ADL Retraining, Functional Mobility, Group Exercise/Act as Ind, UE Funct Exercise/Act Treatment Duration: Mar 02, 2022 Frequency: 3 times per week (3-5 x/week) Estimated Hrs Per Day: .25 hour per day Agreement: Yes Rehab Potential: Fair Time/GCodes Start Time: 11:04 Stop Time: 11:16 Total Time Billed (hr/min): 12 Billed Treatment Time 1 visit Eliz Willoughby OT Feb 16, 2022 11:45
[2022-02-16] MEDS ORDERED: FISH1CAP15 PO (12:23)
[2022-02-16] MEDS ORDERED: POTA99TA18 PO (12:23)
[2022-02-16] MEDS ORDERED: CYAN-41 PO (12:23)
[2022-02-16] MEDS ORDERED: MECL-149 PO (12:23)
[2022-02-16] MEDS ORDERED: APIX5TAB PO (12:23)
[2022-02-16] MEDS ORDERED: LETR2.5T6 PO (12:23)
[2022-02-16] MEDS ORDERED: AMIO200T65 PO (12:23)
[2022-02-16] MEDS ORDERED: VENL150C98 PO (12:23)
[2022-02-16] MEDS ORDERED: SACU1TAB7 PO (12:23)
--- NOTE | 2022-02-16 13:41 | Consultation-Cardiology ---
HPI-Cardiology Cardiology Consultation: Date of Consultation 02/16/22 Time Seen by a Provider: 13:15 Date of Admission 02-15-22 Attending Physician Jg Kirk MD Admitting Physician Admitting Physician: Jg Kirk MD Attending Physician: Jg Kirk MD Consulting Physician JOSIE LARSEN HPI: Chief Complaint: Acute on chronic decompensated systolic CHF Ms. Richter is a 71 yr old female admitted to [facility] from the ED with increasing SOB, LE swelling and abdominal bloating over the course of the last 3 weeks. Her primary alliance director is Dr. Woodward at [facility]. She reports she recently had an AICD implanted in [place] [address] Woodward d/t cardiomyopathy. She denies any shocks. She states she has missed several doses of her diuretics d/t frequent urination. She has been compliant with all her other medications. She denies any c/o CP, palpitations, syncope or near syncope. She feels her SOB has improved. She feels her abdominal bloating has nearly resolved. She feels her LE swelling has improved, but is not yet back to baseline. No c/o n/v/d. No c/o fever or chills. Review of Systems-Cardiology Review of Systems Constitutional: No chills, No fever, No lightheadedness Eyes: No vision change Ears/Nose/Throat: No recent hearing loss Respiratory: As described under HPI Cardiovascular: As described under HPI Gastrointestinal: As described under HPI Genitourinary: No dysuria, No hematuria : No Skin: No rash on exposed areas, No ulcerations on exposed areas Psychiatric/Neurological: No anxiety, No depression, No seizure, No focal weakness, No syncope Hematologic: No bleeding abnormalities All Other Systems Reviewed Negative Unless Noted: Yes GTQ-Gvzvql-Tpvadw Hx Patient Social History Smoking Status: Never a Smoker Have you traveled recently?: No Alcohol Use?: No Pt feels they are or have been: No Immunizations Up To Date Date of Pneumonia Vaccine: Jan 29, 2017 Date of Influenza Vaccine: Jan 29, 2018 Past Medical History PMH As described under Assessment. Family Medical History Family Medical History: She reports her sister also has cardiomyopathy with an AICD in place. She denies any other family h/o CAD. Allergies and Home Medications Allergies Coded Allergies: codeine (Verified Allergy, Mild, HALLUCINATIONS, 01/18/17) Patient Home Medication List Amiodarone HCl (Amiodarone HCl) 200 Mg Tablet, 100 MG PO DAILY, (Reported) Entered as Reported by: KIMBERLY BURRIS on 02/16/221222 Last Action: Continued Apixaban (Eliquis) 5 Mg Tablet, 5 MG PO BID, (Reported) Entered as Reported by: KIMBERLY BURRIS on 02/16/221222 Last Action: Continued Carvedilol (Carvedilol) 25 Mg Tablet, 25 MG PO BID, (Reported) Entered as Reported by: JOSE E SUTTON on 06/05/18 1342 Last Action: Held Cyanocobalamin (Vitamin B-12) (Vitamin B-12) 1,000 Mcg Tablet, 1,000 MCG PO DAILY, (Reported) Entered as Reported by: KIMBERLY BURRIS on 02/16/221222 Last Action: Continued Fish Oil/Dha/Epa (Fish Oil 1,200 mg Fish Oil) 1,200 Mg-144 Mg-216 Mg Capsule, 1 EACH PO DAILY, (Reported) Entered as Reported by: KIMEBRLY BURRIS on 02/16/221222 Last Action: Held Letrozole (Letrozole) 2.5 Mg Tablet, 2.5 MG PO DAILY, (Reported) Entered as Reported by: KIMBERLY BURRIS on 02/16/221222 Last Action: Continued Meclizine HCl (Meclizine HCl) 25 Mg Tablet, 25 MG PO DAILY, (Reported) Entered as Reported by: KIMBERLY BURRIS on 02/16/221222 Last Action: Reviewed Potassium Gluconate (Potassium Gluconate) 595 Mg (99 Mg) Tablet.er, 99 MG PO DAILY PRN for MUSCLE CRAMPS, (Reported) Entered as Reported by: KIMBERLY BURRIS on 02/16/221222 Last Action: Held Sacubitril/Valsartan (Entresto 49 mg-51 mg Tablet) 49 Mg-51 Mg Tablet, 1 EA PO BID, (Reported) Entered as Reported by: KIMBERLY BURRIS on 02/16/221222 Last Action: Converted Venlafaxine HCl (Venlafaxine HCl ER) 150 Mg Cap.er.24h, 150 MG PO DAILY, (Reported) Entered as Reported by: KIMBERLY BURRIS on 10/19/22 1223 Last Action: Converted Discontinued Medications Carvedilol (Carvedilol) 25 Mg Tablet, 50 MG PO HS, (Reported) Discontinued Reason: No Longer Taking Entered as Reported by: JOSE E SUTTON on 06/05/18 1342 Last Action: Discontinued Cholecalciferol (Vitamin D3) (Vitamin D3) 5,000 Unit Tablet, 10,000 UNIT PO DAILY, (Reported) Discontinued Reason: No Longer Taking Entered as Reported by: JOSE E SUTTON on 06/05/181526 Last Action: Discontinued Dexamethasone (Dexamethasone) 4 Mg Tablet, 8 MG PO UD, (Reported) Discontinued Reason: No Longer Taking Entered as Reported by: JOSE E SUTTON on 06/05/181526 Last Action: Discontinued Diazepam (Diazepam) 5 Mg Tablet, 5 MG PO Q6H PRN for ANXIETY, (Reported) Discontinued Reason: No Longer Taking Entered as Reported by: JOSE E SUTTON on 06/05/181527 Last Action: Discontinued Irbesartan (Irbesartan) 300 Mg Tablet, 300 MG PO HS, (Reported) Discontinued Reason: No Longer Taking Entered as Reported by: JOSE E SUTTON on 06/05/181526 Last Action: Discontinued Multivitamin (Multivitamins) 1 Each Tablet, 1 TAB PO DAILY, (Reported) Discontinued Reason: No Longer Taking Entered as Reported by: JOSE E SUTTON on 06/05/181526 Last Action: Discontinued Ondansetron HCl (Ondansetron HCl) 8 Mg Tablet, 8 MG PO TID PRN for NAUSEA/VOMITING-1ST LINE, (Reported) Discontinued Reason: No Longer Taking Entered as Reported by: JOSE E SUTTON on 06/05/181526 Last Action: Discontinued Tramadol HCl (Tramadol HCl) 50 Mg Tablet, 50 MG PO Q6H PRN for PAIN-MODERATE, (Reported) Discontinued Reason: No Longer Taking Entered as Reported by: JOSE E SUTTON on 06/05/181527 Last Action: Discontinued Physical Exam-Cardiology Physical Exam Vital Signs/I&O 02/17/22 02/17/22 02/17/22 02/17/22 00:12 04:10 07:20 08:35 Temp 36.7 36.6 36.5 Pulse 112 115 110 Resp 20 20 18 B/P (MAP) 109/67 (81) 118/69 (85) 114/72 (86) Pulse Ox 96 95 94 93 O2 Delivery Room Air Room Air Room Air Room Air O2 Flow Rate 0.00 02/17/22 09:00 O2 Delivery Room Air 02/16/22 23:59 Intake Total 1640 ml Output Total 2350 ml Balance -710 ml Capillary Refill : Less Than 3 Seconds Constitutional: AAO x 3, well-developed, well-nourished HEENT: PERRL, hearing is well preserved, oral hygience is good Neck: No carotid bruit; carotid pulses are 2 + bilaterally Respiratory: No accessory muscle use, No respiratory distress; chest expansion is symmetric, chest is bilaterally symmetric, other (diminished bases bilat) Cardiovascular: regular rate-rhythm; No JVD; S1 and S2, systolic murmur Gastrointestinal: No tender; soft, round, audible bowel sounds Extremities: significant edema (bilat LE swelling 3+) Neurologic/Psychiatric: grossly intact (moves all extremities) Skin: No rash on exposed areas, No ulcerations on exposed areas Data Review Labs Laboratory Tests 02/17/22 05:53: Sodium Level 141, Potassium Level 3.5L, Chloride Level 103, Carbon Dioxide Level 28, Anion Gap 10, Blood Urea Nitrogen 15, Creatinine 0.90, Estimat Glomerular Filtration Rate 69, BUN/Creatinine Ratio 17, Glucose Level 81, Calcium Level 10.0, Magnesium Level 1.4L Microbiology 02/15/22 Urine Culture - Final, Complete Escherichia coli Radiology NAME: DEB RICHTER [facility] REC#: [id number] PT STATUS: REG ER : 1950 PHYSICIAN: PEYMAN EARLY APRN ADMIT DATE: 02/15/22/ER Signed Date of Exam:02/15/22 CHEST 1 VIEW, AP/PA ONLY EXAMINATION: Chest, one view. HISTORY: Short of breath. COMPARISON: 11/18/2017. FINDINGS: Heart size is normal. No edema or pneumonia. No pleural effusion or pneumothorax. Defibrillator is present. Surgical clips are present in the chest wall. IMPRESSION: 1. Clear lungs. Dictated by: Dictated on workstation # [id number] Dict: 02/15/221910 Trans: 02/15/221941 [id number] Interpreted by: AUSTIN OLSEN MD Electronically signed by: AUSTIN OLSEN MD 02/15/221941 A/P-Cardiology Assessment/Admission Diagnosis Acute on chronic systolic CHF NICM - Echocardiogram of 04-08-[address] Felton showed LVEF 10-15% with severe diffuse hypokinesis. LA and RA dilated. Mod to severe AoR. Mod MR. Mod to severe TR. PASP 50-55 mmHg - She reports she had a sleep study done that was "inconclusive" - she does not use CPAP or supplemental oxygen - managed by Dr. Kirk - AICD - implanted in September 2021 at [facility] - followed by Dr. Woodward HTN HLD - statin tx H/O DVT R leg - OAC with Eliquis - managed by Dr. Kirk H/O Breast Cancer - has had a mastectomy Discussion and Recomendations Acute on chronic systolic CHF - has been non-compliant with diuretics at home - continue IV diuretics - discussed importance of compliance Continue home heart failure medications Request records from [facility] and Dr. Woodward Monitor lab closely - replace electrolytes as indicated Further recs will be based on her hospital course We would like to thank Dr. Cárdenas for this consult JOSIE WINKLER Feb 16, 2022 13:41
--- NOTE | 2022-02-16 14:34 | History & Physical ---
GUERRERO NEWTON 02/16/22 1434: History of Present Illness History of Present Illness Reason for visit/HPI Reason for visit: acute exacerbation of congestive heart failure HPI: Sandra is a 71yo F with a pmh of CHF (echo in past 6 months showed EF 15%), pacemaker/defibrillator, atrial fibrillation, and breast cancer with complete remission. She presented to the emergency room yesterday with bilateral weakness in her legs. The patient reports that for the past three weeks she has had progressively worsening swelling of her legs. The patient takes Lasix PRN at home and normally takes 1 pill a week but she says she took 4 pills within the past week but it has not helped with the swelling. She also reports pain in her right knee that is chronic. Yesterday she struggled to get out of her chair at home because of weakness and had to call her son to help. She then sat down in the shower and was unable to get up so her son called an ambulance. In the emergency room she had 3+ pitting edema bilaterally in her lower extremities. An X-ray of her right knee showed denerative changes but no acute fractures. A chest X-ray did not show any cardiomegaly or vascular congestion. A UA was positive for ketones, nitrites, WBC, and bacteria so a urine culture was done. The patient was given 40mg IV furosemide in the ER and she requested to have a catheter placed while she was receiving diuretics. The patient was sitting up in bed at the beginning of the interview. The patient says she is feeling tired today and wasn't able to sleep well last night. She reports that the swelling in her legs has gone down but her legs are still more swollen than usual. The patient reports that about a week ago she saw some bright red blood in her stool. She has not had another episode of this since then and denies having any dark stools or pain with defecation. Her last colonoscopy was 5 years ago and she had a hyperplastic polyp that was 40mm. She denies having any chest pain, palpitations, or SOB. Her gomes catheter is still in place. Date of Admission Feb 15, 2022 at 20:07 Date Seen by a Provider: Feb 16, 2022 Time Seen by a Provider: 09:00 I consulted on this patient on 02/16/22 14:05 Attending Physician Jg Kirk MD Admitting Physician Admitting Physician: Jg Kirk MD Attending Physician: Jg Kirk MD Consult Allergies and Home Medications Allergies Coded Allergies: codeine (Verified Allergy, Mild, HALLUCINATIONS, 01/18/17) Patient Home Medication List Amiodarone HCl (Amiodarone HCl) 200 Mg Tablet, 100 MG PO DAILY, (Reported) Entered as Reported by: KIMBERLY BURRIS on 02/16/221222 Last Action: Continued Apixaban (Eliquis) 5 Mg Tablet, 5 MG PO BID, (Reported) Entered as Reported by: KIMBERLY BURRIS on 02/16/221222 Last Action: Continued Carvedilol (Carvedilol) 25 Mg Tablet, 25 MG PO BID, (Reported) Entered as Reported by: JOSE E SUTTON on 06/05/181341 Last Action: Held Cyanocobalamin (Vitamin B-12) (Vitamin B-12) 1,000 Mcg Tablet, 1,000 MCG PO DAILY, (Reported) Entered as Reported by: KIMBERLY BURRIS on 02/16/221222 Last Action: Continued Fish Oil/Dha/Epa (Fish Oil 1,200 mg Fish Oil) 1,200 Mg-144 Mg-216 Mg Capsule, 1 EACH PO DAILY, (Reported) Entered as Reported by: KIMBERLY BURRIS on 02/16/221222 Last Action: Held Letrozole (Letrozole) 2.5 Mg Tablet, 2.5 MG PO DAILY, (Reported) Entered as Reported by: KIMBERLY BURRIS on 02/16/221222 Last Action: Continued Meclizine HCl (Meclizine HCl) 25 Mg Tablet, 25 MG PO DAILY, (Reported) Entered as Reported by: KIMBERLY BURRIS on 02/16/221222 Last Action: Reviewed Potassium Gluconate (Potassium Gluconate) 595 Mg (99 Mg) Tablet.er, 99 MG PO DAILY PRN for MUSCLE CRAMPS, (Reported) Entered as Reported by: KIMBERLY BURRIS on 02/16/221222 Last Action: Held Sacubitril/Valsartan (Entresto 49 mg-51 mg Tablet) 49 Mg-51 Mg Tablet, 1 EA PO BID, (Reported) Entered as Reported by: KIMBERLY BURRIS on 02/16/221222 Last Action: Converted Venlafaxine HCl (Venlafaxine HCl ER) 150 Mg Cap.er.24h, 150 MG PO DAILY, (Reported) Entered as Reported by: KIMBERLY BURRIS on 02/16/22 1223 Last Action: Converted Discontinued Medications Carvedilol (Carvedilol) 25 Mg Tablet, 50 MG PO HS, (Reported) Discontinued Reason: No Longer Taking Entered as Reported by: JOSE E SUTTON on 06/05/18 1342 Last Action: Discontinued Cholecalciferol (Vitamin D3) (Vitamin D3) 5,000 Unit Tablet, 10,000 UNIT PO DAILY, (Reported) Discontinued Reason: No Longer Taking Entered as Reported by: JOSE E SUTTON on 06/05/181526 Last Action: Discontinued Dexamethasone (Dexamethasone) 4 Mg Tablet, 8 MG PO UD, (Reported) Discontinued Reason: No Longer Taking Entered as Reported by: JOSE E SUTTON on 06/05/181526 Last Action: Discontinued Diazepam (Diazepam) 5 Mg Tablet, 5 MG PO Q6H PRN for ANXIETY, (Reported) Discontinued Reason: No Longer Taking Entered as Reported by: JOSE E SUTTON on 06/05/181527 Last Action: Discontinued Irbesartan (Irbesartan) 300 Mg Tablet, 300 MG PO HS, (Reported) Discontinued Reason: No Longer Taking Entered as Reported by: JOSE E SUTTON on 06/05/181526 Last Action: Discontinued Multivitamin (Multivitamins) 1 Each Tablet, 1 TAB PO DAILY, (Reported) Discontinued Reason: No Longer Taking Entered as Reported by: JOSE E SUTTON on 06/05/181526 Last Action: Discontinued Ondansetron HCl (Ondansetron HCl) 8 Mg Tablet, 8 MG PO TID PRN for NAUSEA/VOMITING-1ST LINE, (Reported) Discontinued Reason: No Longer Taking Entered as Reported by: JOSE E SUTTON on 06/05/181526 Last Action: Discontinued Tramadol HCl (Tramadol HCl) 50 Mg Tablet, 50 MG PO Q6H PRN for PAIN-MODERATE, (Reported) Discontinued Reason: No Longer Taking Entered as Reported by: JOSE E SUTTON on 06/05/181527 Last Action: Discontinued Past Cdygycb-Yyeesa-Avywmm Hx Patient Social History Marrital Status: single Living Status: Lives at home alone Tobacco Use?: No Smoking Status: Former Smoker (Quit over 30 years ago) Smokeless Tobacco Frequency: Never a User Use of E-Cig and/or Vaping dev: No Substance use?: No Alcohol Use?: No Pt feels they are or have been: No Immunizations Up To Date Date of Influenza Vaccine: Jan 29, 2018 First/Initial COVID19 Vaccinat: 2020 Second COVID19 Vaccination Leighton: 2020 Date of Pneumonia Vaccine: Jan 29, 2017 Seasonal Allergies Seasonal Allergies: Yes Current Status Advance Directives: Yes Advance Directive Location: Family to bring in copy Communicates: Verbally Primary Language: Hebrew Preferred Spoken Language: Hebrew Is interpretation needed?: No Sensory deficits: Vision impairment Implanted or Applied Medical D: Pacemaker Past Medical History Surgeries: Breast, Gallbladder, Tubal Ligation Cardiomyopathy, Chronic Edema/Swelling, Hypertension 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 Sexually Transmitted Disease: No HIV/AIDS: No Polyps (Hyperplastic) Arthritis Loss of Vision: Bilateral Hearing Impairment: Denies Breast Did You Recieve Any Treatments: Yes What Type of Treatment Did You: Chemotherapy, Radiation, Surgical Intervention Blood Disorders: No Adverse Reaction/Blood Tranf: No (N/A) Family Medical History Cancer (Mother- breast cancer), GI Disease (Father- diverticular disease) Review of Systems Constitutional: No chills, No fever; weakness EENTM: nose congestion (seasonal allergies); No hearing loss, No vision loss, No throat pain Respiratory: No cough, No phlegm, No short of breath Cardiovascular: No chest pain; edema; No palpitations Gastrointestinal: No abdominal pain, No constipation, No diarrhea, No melena, N o nausea, No vomiting Genitourinary: other (gomes still in place) : No Musculoskeletal: no symptoms reported Skin: No change in color, No rash Psychiatric/Neurological: Denies Headache, Denies Numbness, Denies Tingling, Denies Tremors Physical Exam Vital Signs Vital Signs - First Documented 02/15/22 02/15/22 17:02 22:52 Temp 36.3 Pulse 112 Resp 18 B/P (MAP) 110/63 (79) Pulse Ox 96 O2 Delivery Room Air FiO2 21 Capillary Refill : Less Than 3 Seconds Height, Weight, BMI Height: 5'8.00" Weight: 230lbs. 0.0oz. 104.055689zc; 39.51 BMI Method:Stated General Appearance: No Apparent Distress, WD/WN HEENT: Pharynx Normal, Moist Mucous Membranes Neck: Full Range of Motion, Normal Inspection, Non Tender, Supple Respiratory: Chest Non Tender, Lungs Clear, Normal Breath Sounds, No Accessory Muscle Use, No Respiratory Distress Cardiovascular: Regular Rate, Rhythm, Normal Peripheral Pulses (3+ radial ), Systolic Murmur (grade 3) Gastrointestinal: No Organomegaly, No Pulsatile Mass, Non Tender, Soft Back: Normal Inspection, No Vertebral Tenderness Extremity: Normal Capillary Refill, Normal Range of Motion, Non Tender, No Calf Tenderness, Pedal Edema (2+ pitting edema) Neurologic/Psychiatric: Alert, Oriented x3, Normal Mood/Affect Skin: Normal Color, Warm/Dry Assessment/Plan Assessment and Plan 1) Acute exacerbation of congestive heart failure - patients records have been requested from Dr. Woodward's office - patient has received 2 doses of IV furosemide 40mg and is still experiencing lower extremity edema, another bolus of furosemide 40mg will be given - give PO potassium chloride 20mEq with the lazsix bolus to prevent hypokalemia - restart home heart failure medications carvedilol 50mg 1xD, irbesartan 300mg 1xD - patient has has tachycardia since arriving to the hospital, cardiology has been consulted - discussed removing the gomes catheter and placing a purewick 2) Atrial fibrillation - patient is not in atrial fibrillation - telemetry has been ordered due to the tachycardia the patient has been having - restart home medication amniodarone 2xD - restart Eliquis 5mg 2xD 3) UTI - no history of recurrent UTIs or recent UTI treatment - IV Rocephin 1g 1xD 4) Hypoglycemeia - 68 this morning before the patient had breakfast - accuchek ordered 5) Hematochezia - history of hyperplastic polyps measuring over 10mm - fecal occult test ordered - patient is due for another colonoscopy and her primary will be contacted about this 6) Knee pain - Tylenol 650mg Q6hr 7) Vertigo - Restart home medication Meclizine 25mg Q6hrs Admission Diagnosis Admission Status: Inpatient Order (span 2 midnights) Reason for Inpatient Admission: Lower extremity edema that has required multiple boluses of Lasix and tachycardia ANAND CÁRDENAS MD 02/17/22 7517: Allergies and Home Medications Allergies Coded Allergies: codeine (Verified Allergy, Mild, HALLUCINATIONS, 01/18/17) Patient Home Medication List Home Medication List Reviewed: Yes Amiodarone HCl (Amiodarone HCl) 200 Mg Tablet, 100 MG PO DAILY, (Reported) Entered as Reported by: KIMBERLY BURRIS on 02/16/221222 Last Action: Continued Apixaban (Eliquis) 5 Mg Tablet, 5 MG PO BID, (Reported) Entered as Reported by: KIMBERLY BURRIS on 02/16/221222 Last Action: Continued Carvedilol (Carvedilol) 25 Mg Tablet, 25 MG PO BID, (Reported) Entered as Reported by: JOSE E SUTTON on 06/05/181341 Last Action: Held Cyanocobalamin (Vitamin B-12) (Vitamin B-12) 1,000 Mcg Tablet, 1,000 MCG PO D RICHAR, (Reported) Entered as Reported by: KIMBERLY BURRIS on 02/16/221222 Last Action: Continued Fish Oil/Dha/Epa (Fish Oil 1,200 mg Fish Oil) 1,200 Mg-144 Mg-216 Mg Capsule, 1 EACH PO DAILY, (Reported) Entered as Reported by: KIMBERLY BURRIS on 02/16/221222 Last Action: Held Letrozole (Letrozole) 2.5 Mg Tablet, 2.5 MG PO DAILY, (Reported) Entered as Reported by: KIMBERLY BURRIS on 02/16/221222 Last Action: Continued Meclizine HCl (Meclizine HCl) 25 Mg Tablet, 25 MG PO DAILY, (Reported) Entered as Reported by: KIMBERLY BURRIS on 02/16/221222 Last Action: Reviewed Potassium Gluconate (Potassium Gluconate) 595 Mg (99 Mg) Tablet.er, 99 MG PO DAILY PRN for MUSCLE CRAMPS, (Reported) Entered as Reported by: KIMBERLY BURRIS on 02/16/221222 Last Action: Held Sacubitril/Valsartan (Entresto 49 mg-51 mg Tablet) 49 Mg-51 Mg Tablet, 1 EA PO BID, (Reported) Entered as Reported by: KIMBERLY BURRIS on 02/16/221222 Last Action: Converted Venlafaxine HCl (Venlafaxine HCl ER) 150 Mg Cap.er.24h, 150 MG PO DAILY, (Reported) Entered as Reported by: KIMBERLY BURRIS on 10/19/22 1223 Last Action: Converted Discontinued Medications Carvedilol (Carvedilol) 25 Mg Tablet, 50 MG PO HS, (Reported) Discontinued Reason: No Longer Taking Entered as Reported by: JOSE E SUTTON on 06/05/18 1342 Last Action: Discontinued Cholecalciferol (Vitamin D3) (Vitamin D3) 5,000 Unit Tablet, 10,000 UNIT PO DAILY, (Reported) Discontinued Reason: No Longer Taking Entered as Reported by: JOSE E SUTTON on 06/05/181526 Last Action: Discontinued Dexamethasone (Dexamethasone) 4 Mg Tablet, 8 MG PO UD, (Reported) Discontinued Reason: No Longer Taking Entered as Reported by: JOSE E SUTTON on 06/05/181526 Last Action: Discontinued Diazepam (Diazepam) 5 Mg Tablet, 5 MG PO Q6H PRN for ANXIETY, (Reported) Discontinued Reason: No Longer Taking Entered as Reported by: JOSE E SUTTON on 06/05/181527 Last Action: Discontinued Irbesartan (Irbesartan) 300 Mg Tablet, 300 MG PO HS, (Reported) Discontinued Reason: No Longer Taking Entered as Reported by: JOSE E SUTTON on 06/05/181526 Last Action: Discontinued Multivitamin (Multivitamins) 1 Each Tablet, 1 TAB PO DAILY, (Reported) Discontinued Reason: No Longer Taking Entered as Reported by: JOSE E SUTTON on 06/05/181526 Last Action: Discontinued Ondansetron HCl (Ondansetron HCl) 8 Mg Tablet, 8 MG PO TID PRN for NAUSEA/VOMITING-1ST LINE, (Reported) Discontinued Reason: No Longer Taking Entered as Reported by: JOSE E SUTTON on 06/05/181526 Last Action: Discontinued Tramadol HCl (Tramadol HCl) 50 Mg Tablet, 50 MG PO Q6H PRN for PAIN-MODERATE, (Reported) Discontinued Reason: No Longer Taking Entered as Reported by: JOSE E SUTTON on 06/05/181527 Last Action: Discontinued Assessment/Plan Assessment and Plan Patient admitted to the hospital secondary to acutely decompensated systolic heart failure. She follows with outside cardiology reports her last echo was in the past 6 months. EF is around 10 to 15%. She does have an AICD in place. She is somewhat noncompliant with her Lasix. She reports having significant diuresis already with IV Lasix and is feeling better. We will continue admission in the hospital for IV diuretics. We will attempt to DC Gomes tomorrow. We will consult PT for strengthening. I discussed the case with Dr. Wolfe's nurse practitioner, Delmi, and they will see in consultation. Supervisory-Addendum Brief Verification & Attestation Participated in pt care: history, MDM, physical Personally performed: exam, history, MDM, supervision of care Care discussed with: Medical Student Procedures: n/a Results interpretation: Verified all documentation Verification and Attestation of Medical Student E/M Service A medical student performed and documented this service in my presence. I reviewed and verified all information documented by the medical student and made modifications to such information, when appropriate. I personally performed the physical exam and medical decision making. Anand Cárdenas, Feb 17, 2022,14:54 GUERRERO NEWTON Feb 16, 2022 14:34 ANAND CÁRDENAS MD Feb 17, 2022 14:56
--- NOTE | 2022-02-16 16:23 | Consultation-Cardiology ---
HPI-Cardiology Cardiology Consultation: Date of Consultation 02/16/22 Time Seen by a Provider: 16:19 Date of Admission Attending Physician Jg Kirk MD Admitting Physician Admitting Physician: Jg Kirk MD Attending Physician: Jg Kirk MD Consulting Physician CHAU POPE MD, FACP, FACC, [facility] [place] HPI: Chief Complaint: Acute on chronic decompensated systolic CHF Ms. Richter is a 71 yr old female admitted to [facility] from the ED with increasing SOB, LE swelling and abdominal bloating over the course of the last 3 weeks. Her primary wire strander is Dr. Woodawrd at [facility]. She reports she recently had an AICD implanted in [place] [address] Woodward d/t cardiomyopathy. She denies any shocks. She states she has missed several doses of her diuretics d/t frequent urination. She has been compliant with all her other medications. She denies any c/o CP, palpitations, syncope or near syncope. She feels her SOB has improved. She feels her abdominal bloating has nearly resolved. She feels her LE swelling has improved, but is not yet back to baseline. No c/o n/v/d. No c/o fever or chills. Review of Systems-Cardiology Review of Systems Constitutional: No chills, No fever, No lightheadedness Eyes: No vision change Ears/Nose/Throat: No recent hearing loss Respiratory: As described under HPI Cardiovascular: As described under HPI Gastrointestinal: As described under HPI Genitourinary: No dysuria, No hematuria : No Skin: No rash on exposed areas, No ulcerations on exposed areas Psychiatric/Neurological: No anxiety, No depression, No seizure, No focal weakness, No syncope Hematologic: No bleeding abnormalities All Other Systems Reviewed Negative Unless Noted: Yes FJN-Jtcrim-Pnqizo Hx Patient Social History Marrital Status: single Living Status: Lives at home alone Smoking Status: Former Smoker (Quit over 30 years ago) Have you traveled recently?: No Alcohol Use?: No Pt feels they are or have been: No Immunizations Up To Date Date of Pneumonia Vaccine: Jan 29, 2017 Date of Influenza Vaccine: Jan 29, 2018 Past Medical History PMH As described under Assessment. Family Medical History Family Medical History: She reports her sister also has cardiomyopathy with an AICD in place. She denies any other family h/o CAD. Allergies and Home Medications Allergies Coded Allergies: codeine (Verified Allergy, Mild, HALLUCINATIONS, 01/18/17) Patient Home Medication List Home Medication List Reviewed: Yes Amiodarone HCl (Amiodarone HCl) 200 Mg Tablet, 100 MG PO DAILY, (Reported) Entered as Reported by: KIMBERLY BURRIS on 02/16/221222 Last Action: Reviewed Apixaban (Eliquis) 5 Mg Tablet, 5 MG PO BID, (Reported) Entered as Reported by: KIMBERLY BURRIS on 02/16/221222 Last Action: Reviewed Carvedilol (Carvedilol) 25 Mg Tablet, 25 MG PO BID, (Reported) Entered as Reported by: JOSE E SUTTON on 06/05/18 1342 Last Action: Reviewed Cyanocobalamin (Vitamin B-12) (Vitamin B-12) 1,000 Mcg Tablet, 1,000 MCG PO DAILY, (Reported) Entered as Reported by: KIMBERLY BURRIS on 02/16/221222 Last Action: Reviewed Fish Oil/Dha/Epa (Fish Oil 1,200 mg Fish Oil) 1,200 Mg-144 Mg-216 Mg Capsule, 1 EACH PO DAILY, (Reported) Entered as Reported by: KIMBERLY BURRIS on 02/16/221222 Last Action: Reviewed Letrozole (Letrozole) 2.5 Mg Tablet, 2.5 MG PO DAILY, (Reported) Entered as Reported by: KIMBERLY BURRIS on 02/16/221222 Last Action: Reviewed Meclizine HCl (Meclizine HCl) 25 Mg Tablet, 25 MG PO DAILY, (Reported) Entered as Reported by: KIMBERLY BURRIS on 02/16/221222 Last Action: Reviewed Potassium Gluconate (Potassium Gluconate) 595 Mg (99 Mg) Tablet.er, 99 MG PO DAILY PRN for MUSCLE CRAMPS, (Reported) Entered as Reported by: KIMBERLY BURRIS on 02/16/221222 Last Action: Reviewed Sacubitril/Valsartan (Entresto 49 mg-51 mg Tablet) 49 Mg-51 Mg Tablet, 1 EA PO BID, (Reported) Entered as Reported by: KIMBERLY BURRIS on 02/16/221222 Last Action: Reviewed Venlafaxine HCl (Venlafaxine HCl ER) 150 Mg Cap.er.24h, 150 MG PO DAILY, (Reported) Entered as Reported by: KIMBERLY BURRIS on 02/16/22 1223 Last Action: Reviewed Discontinued Medications Carvedilol (Carvedilol) 25 Mg Tablet, 50 MG PO HS, (Reported) Discontinued Reason: No Longer Taking Entered as Reported by: JOSE E SUTTON on 06/05/18 1342 Last Action: Discontinued Cholecalciferol (Vitamin D3) (Vitamin D3) 5,000 Unit Tablet, 10,000 UNIT PO DAILY, (Reported) Discontinued Reason: No Longer Taking Entered as Reported by: JOSE E SUTTON on 06/05/181526 Last Action: Discontinued Dexamethasone (Dexamethasone) 4 Mg Tablet, 8 MG PO UD, (Reported) Discontinued Reason: No Longer Taking Entered as Reported by: JOSE E SUTTON on 06/05/181526 Last Action: Discontinued Diazepam (Diazepam) 5 Mg Tablet, 5 MG PO Q6H PRN for ANXIETY, (Reported) Discontinued Reason: No Longer Taking Entered as Reported by: JOSE E SUTTON on 06/05/181527 Last Action: Discontinued Irbesartan (Irbesartan) 300 Mg Tablet, 300 MG PO HS, (Reported) Discontinued Reason: No Longer Taking Entered as Reported by: JOSE E SUTTON on 06/05/181526 Last Action: Discontinued Multivitamin (Multivitamins) 1 Each Tablet, 1 TAB PO DAILY, (Reported) Discontinued Reason: No Longer Taking Entered as Reported by: JOSE E SUTTON on 06/05/181526 Last Action: Discontinued Ondansetron HCl (Ondansetron HCl) 8 Mg Tablet, 8 MG PO TID PRN for NAUSEA/VOMITING-1ST LINE, (Reported) Discontinued Reason: No Longer Taking Entered as Reported by: JOSE E SUTTON on 06/05/181526 Last Action: Discontinued Tramadol HCl (Tramadol HCl) 50 Mg Tablet, 50 MG PO Q6H PRN for PAIN-MODERATE, (Reported) Discontinued Reason: No Longer Taking Entered as Reported by: JOSE E SUTTON on 06/05/181527 Last Action: Discontinued Physical Exam-Cardiology Physical Exam Vital Signs/I&O 02/16/22 02/16/22 02/16/22 02/16/22 04:45 06:18 07:28 08:00 Temp 36.3 36.5 Pulse 114 101 Resp 18 18 B/P (MAP) 96/60 (72) 99/66 (77) 106/62 (77) Pulse Ox 96 97 O2 Delivery Room Air Room Air Room Air 02/16/22 02/16/22 11:40 16:02 Temp 36.3 37.1 Pulse 58 107 Resp 18 20 B/P (MAP) 84/45 (58) 90/57 (68) Pulse Ox 95 93 O2 Delivery Room Air Room Air 02/16/22 00:00 Output Total 1200 ml Balance -1200 ml Capillary Refill : Less Than 3 Seconds Constitutional: AAO x 3, well-developed, well-nourished HEENT: PERRL, hearing is well preserved, oral hygience is good Neck: No carotid bruit; carotid pulses are 2 + bilaterally Respiratory: No accessory muscle use, No respiratory distress; chest expansion is symmetric, chest is bilaterally symmetric, other (diminished bases bilat) Cardiovascular: regular rate-rhythm; No JVD; S1 and S2, systolic murmur Gastrointestinal: No tender; soft, round, audible bowel sounds Extremities: significant edema (bilat LE swelling 3+) Neurologic/Psychiatric: grossly intact (moves all extremities) Skin: No rash on exposed areas, No ulcerations on exposed areas Data Review Labs Laboratory Tests 02/15/22 18:30: White Blood Count 6.5, Red Blood Count 4.62, Hemoglobin 12.5, Hematocrit 40, Mean Corpuscular Volume 87, Mean Corpuscular Hemoglobin 27, Mean Corpuscular Hemoglobin Concent 31L, Red Cell Distribution Width 16.9H, Platelet Count 155, Mean Platelet Volume 10.5, Immature Granulocyte % (Auto) 0, Neutrophils (%) (Auto) 75, Lymphocytes (%) (Auto) 14, Monocytes (%) (Auto) 10, Eosinophils (%) (Auto) 1, Basophils (%) (Auto) 1, Neutrophils # (Auto) 4.9, Lymphocytes # (Auto) 0.9L, Monocytes # (Auto) 0.6, Eosinophils # (Auto) 0.0, Basophils # (Auto) 0.0, Immature Granulocyte # (Auto) 0.0, Sodium Level 144, Potassium Level 4.1, Chloride Level 110H, Carbon Dioxide Level 25, Anion Gap 9, Blood Urea Nitrogen 13, Creatinine 0.84, Estimat Glomerular Filtration Rate 75, BUN/Creatinine Ratio 15, Glucose Level 91, Calcium Level 9.8, Corrected Calcium 10.4H, Total Bilirubin 3.4H, Aspartate Amino Transf (AST/SGOT) 13, Alanine Aminotransferase (ALT/SGPT) 13, Alkaline Phosphatase 70, B-Type Natriuretic Peptide 2292.6H, Total Protein 5.8L, Albumin 3.2 02/15/22 19:35: Urine Color DARK YELLOW, Urine Clarity SL CLOUDY, Urine pH 6.0, Urine Specific Pitman 1.020, Urine Protein 2+H, Urine Glucose (UA) NEGATIVE, Urine Ketones 3+H , Urine Nitrite POSITIVEH, Urine Bilirubin NEGATIVE, Urine Urobilinogen 0.2, Urine Leukocyte Esterase 2+H, Urine RBC (Auto) 3+H, Urine RBC NONE, Urine WBC 50-100H, Urine Squamous Epithelial Cells NONE, Urine Renal Epithelial Cells NONE, Urine Crystals PRESENTH, Urine Amorphous Sediment MOD EDUARDO URATESH, Urine Bacteria LARGEH, Urine Casts NONE, Urine Mucus NEGATIVE, Urine Culture Indicated YES 02/16/22 05:46: White Blood Count 5.8, Red Blood Count 4.46, Hemoglobin 12.0, Hematocrit 39, Mean Corpuscular Volume 86, Mean Corpuscular Hemoglobin 27, Mean Corpuscular Hemoglobin Concent 31L, Red Cell Distribution Width 17.0H, Platelet Count 143, Mean Platelet Volume 11.1, Immature Granulocyte % (Auto) 0, Neutrophils (%) (Auto) 51, Lymphocytes (%) (Auto) 35, Monocytes (%) (Auto) 12, Eosinophils (%) (Auto) 2, Basophils (%) (Auto) 1, Neutrophils # (Auto) 3.0, Lymphocytes # (Auto) 2.1, Monocytes # (Auto) 0.7, Eosinophils # (Auto) 0.1, Basophils # (Auto) 0.1, Immature Granulocyte # (Auto) 0.0, Sodium Level 143, Potassium Level 3.8, Chloride Level 108H, Carbon Dioxide Level 24, Anion Gap 11, Blood Urea Nitrogen 13, Creatinine 0.84, Estimat Glomerular Filtration Rate 75, BUN/Creatinine Ratio 15, Glucose Level 68L, Calcium Level 9.6, B-Type Natriuretic Peptide 1963.6H Microbiology 02/15/22 Urine Culture - Preliminary, Resulted Gram Negative Saurabh A/P-Cardiology Assessment/Admission Diagnosis Acute on chronic systolic CHF NICM - Echocardiogram of 12-9-[address] Felton showed LVEF 10-15% with severe diffuse hypokinesis. LA and RA dilated. Mod to severe AoR. Mod MR. Mod to severe TR. PASP 50-55 mmHg - She reports she had a sleep study done that was "inconclusive" - she does not use CPAP or supplemental oxygen - managed by Dr. Kirk - AICD - implanted in September 2021 at [facility] (pt reports it to be a single chamber device) - followed by Dr. Woodward HTN HLD - statin tx H/O DVT R leg - OAC with Eliquis - managed by Dr. Kirk H/O Breast Cancer - has had a mastectomy Discussion and Recomendations Acute on chronic systolic CHF - has been non-compliant with diuretics at home - continue IV diuretics - discussed importance of compliance Continue home heart failure medications Request records from [facility] and Dr. Woodward Monitor lab closely - replace electrolytes as indicated Further recs will be based on her hospital course We would like to thank Dr. Cárdenas for this consult CHAU POPE MD FACP FAC CCDS Feb 16, 2022 16:23
[2022-02-16] MEDS: FUROSEMIDE 40 MG/4 ML INJ (LASIX) IVP SCH (18:29)
[2022-02-17] VITALS (7 sets, daily range): BP systolic 97–118; BP diastolic 53–72
[2022-02-17] MEDS: FUROSEMIDE 40 MG/4 ML INJ (LASIX) IVP SCH ×2 (06:15→17:27)
[2022-02-17] MEDS: KCL 20 MEQ TAB (K-DUR) PO SCH ×3 (06:15→21:47)
[2022-02-17] MEDS: CATHETER FLUSH 10 ML SYR IVP SCH ×3 (06:16→21:48)
[2022-02-17 06:45] LABS: CREATININE SERUM 0.9 MG/DL (0.60-1.30); MAGNESIUM 1.4 MG/DL (1.6-2.4); POTASSIUM 3.5 MMOL/L (3.6-5.0)
[2022-02-17] MEDS: SACUBITRIL/VALSARTAN 24/26 MG (ENTRESTO) TABLET PO SCH ×2 (09:09→21:47)
[2022-02-17] MEDS: VENlafaxine XR 75 MG (EFFEXOR XR) CAP PO SCH (09:09)
[2022-02-17] MEDS: APIXABAN 5 MG (ELIQUIS) TABLET PO SCH ×2 (09:09→21:47)
[2022-02-17] MEDS: AMIODARONE 200 MG (CORDARONE) TAB PO SCH (09:10)
[2022-02-17] MEDS: cefTRIAXone 1 GM PRE-MIX 50 ML IV SCH (09:10)
[2022-02-17] MEDS: CYANOCOBALAMIN 1,000 MCG (VITAMIN B-12) TABLET PO SCH (09:15)
[2022-02-17] MEDS: LETROZOLE 2.5 MG (FEMARA) TAB PO SCH (09:15)
--- NOTE | 2022-02-17 09:40 | Occupational Ther Daily Note ---
OT Current Status-Daily Note Subjective Pt sitting in bed with breakfast. Pt agrees to therapy. Pt c/o no pain. Mental Status/Objective Patient Orientation: Person, Place, Time, Situation Attachments: Gomes Catheter, IV ADL-Treatment Pt positioned self to EOB independently after HOB raised to 60 degrees. Pt donned socks independently using figure 4 method at EOB. With surface elevated, pt able to sit to stand with min A. Pt ambulated to recliner with FWW requiring SBA. Pt able to eat and drink independently. Pt in recliner at end of treatment with call light/phone in reach. All needs met. Reported to [facility] staff that gomes catheter need emptied. Therapy Code Descriptions/Definitions Functional [place] Measure: 0=Not Assessed/NA 4=Minimal Assistance 1=Total Assistance 5=Supervision or Setup 2=Maximal Assistance 6=Modified [place] 3=Moderate Assistance 7=Complete IndependenceSCALE: Activities may be completed with or without assistive devices. 8-Elsdkihpxc-jlskaou completes the activity by him/herself with no assistance from a helper. 5-Set-up or Clean-up Assistance-helper sets up or cleans up; patient completes activity. [place] assists only prior to or following the activity. 4-Supervision or Touching Assistance-helper provides verbal cues and/or touching/steadying and/or contact guard assistance as patient completes activity. Assistance may be provided throughout the activity or intermittently. 3-Partial/Moderate Assistance-helper does LESS THAN HALF the effort. [place] lifts, holds or supports trunk or limbs, but provides less than half the effort. 2-Substantial/Maximal Assistance-helper does MORE THAN HALF the effort. [place] lifts or holds trunk or limbs and provides more than half the effort. 7-Qhqbnhuiw-nlqjcq does ALL the effort. Patient does none of the effort to complete the activity. Or, the assistance of 2 or more helpers is required for the patient to complete the activity. If activity was not attempted, code reason: 7-Patient Refused. 9-Not Applicable-not attempted and the patient did not perform the activity before the current illness, exacerbation or injury. 10-Not Attempted due to Environmental Limitations-(lack of equipment, weather restraints, etc.). 88-Not Attempted due to Medical Conditions or Safety Concerns. Eating (QC): 6 On/Off Footwear: 6 (Took increased time) OT Space Scheduler Goals Senior Living Goals Time Frame: Mar 02, 2022 Oral Hygiene (QC): 5 Toileting Hygiene (QC): 4 Shower/Bathe Self (QC): 4 Upper Body Dressing (QC): 4 Lower Body Dressing (QC): 4 On/Off Footwear (QC): 4 Additional Goals: 1-Demonstrate ADL Tasks, 2-Verbalize Understanding, 3- ImproveStrength/Jamir 1=Demonstrate adherence to instructed precautions during ADL tasks. 2=Patient will verbalize/demonstrate understanding of assistive devices/modifications for ADL. 3=Patient will improve strength/tolerance for activity to enable patient to perform ADL's. OT Education/Plan Problem List/Assessment Assessment: Decreased Activ Tolerance, Impaired Funct Balance Discharge Recommendations Plan/Recommendations: Continue POC Treatment Plan/Plan of Care Patient would benefit from OT for education, treatment and training to promote independence in ADL's, mobility, safety and/or upper extremity function for ADL's. Plan of Care: ADL Retraining, Functional Mobility, Group Exercise/Act as Ind, UE Funct Exercise/Act Treatment Duration: Mar 02, 2022 Frequency: 3 times per week (3-5 x/week) Estimated Hrs Per Day: .25 hour per day Agreement: Yes Rehab Potential: Fair Time/GCodes Start Time: 08:42 Stop Time: 08:57 Total Time Billed (hr/min): 15 Billed Treatment Time 1 visit ADL 1 (15 min) DEVORAH ELKINS Feb 17, 2022 09:40
[2022-02-17] MEDS: MAGNESIUM 1 GM/100 ML IVPB 100 ML IV SCH ×2 (09:54→10:57)
--- NOTE | 2022-02-17 10:21 | Physical Therapy Daily Note ---
PT Daily Note-Current Subjective Patient agrees to PT. Pain Section J - Health Conditions 1. Rarely or not at all 2. Occasionally 3. Frequently 4. Almost constantly 8. Unable to answer Pain Effect on Sleep: 1 Pain Interference with Therapy: 1 Pain Interference w/Day-to-Day: 1 Mental Status Patient Orientation: Normal For Age Attachments: Haddad Catheter, IV Transfers SCALE: Activities may be completed with or without assistive devices. 5-Vuryazagju-mmrdzqq completes the activity by him/herself with no assistance from a helper. 5-Set-up or Clean-up Assistance-helper sets up or cleans up; patient completes activity. [place] assists only prior to or following the activity. 4-Supervision or Touching Assistance-helper provides verbal cues and/or touching/steadying and/or contact guard assistance as patient completes activity. Assistance may be provided throughout the activity or intermittently. 3-Partial/Moderate Assistance-helper does LESS THAN HALF the effort. [place] lifts, holds or supports trunk or limbs, but provides less than half the effort. 2-Substantial/Maximal Assistance-helper does MORE THAN HALF the effort. [place] lifts or holds trunk or limbs and provides more than half the effort. 7-Kohgtkmvx-efrwxi does ALL the effort. Patient does none of the effort to complete the activity. Or, the assistance of 2 or more helpers is required for the patient to complete the activity. If activity was not attempted, code reason: 7-Patient Refused. 9-Not Applicable-not attempted and the patient did not perform the activity before the current illness, exacerbation or injury. 10-Not Attempted due to Environmental Limitations-(lack of equipment, weather restraints, etc.). 88-Not Attempted due to Medical Conditions or Safety Concerns. Sit to Stand (QC): 4 Weight Bearing Right Lower Extremity: Right Weight Bearing/Tolerated Left Lower Extremity: Left Weight Bearing/Tolerated Gait Training Distance: 200' Walk 10 feet (QC): 4 Walk 50 ft with 2 Turns(QC): 4 Walk 150 ft (QC): 4 Gait Assistive Device: FWW slow, steady, slightly antalgic gait sequence Exercises Seated Therapy Exercises: Ankle pumps, Long arc quads Seated Reps: 15 Assessment Patient remains up in recliner. Patient motivated with progress and remains up in recliner with needs met. PT Modern And Contemporary Art Curator Goals Modern And Contemporary Art Curator Goals PT Snf Goals Time Frame: Feb 23, 2022 Roll Left & Right (QC): 4 (SBA) Sit to Lying (QC): 4 (SBA) Lying-Sitting on Side/Bed(QC): 4 (SBA) Sit to Stand (QC): 4 (SBA) Walk 10 feet (QC): 4 (SBA) Walk 50ft with 2 Turns (QC): 4 (SBA) PT Plan Treatment/Plan Treatment Plan: Continue Plan of Care Treatment Plan: Bed Mobility, Education, Functional Activity Jamir, Functional Strength, Gait, Safety, Therapeutic Exercise, Transfers Treatment Duration: Feb 23, 2022 Frequency: 6 times per week Estimated Hrs Per Day: .25 hour per day Patient and/or Family Agrees t: Yes Time/GCodes Time In: 942 Time Out: 954 Total Billed Treatment Time: 12 Total Billed Treatment 1 visit FA 12 min ANUJ HART PT Feb 17, 2022 10:21
--- NOTE | 2022-02-17 10:31 | Progress Note - Cardiology ---
Cardiology SOAP Progress Note Subjective: Sitting up in recliner at the bedside Feels SOB is improving Feels LE swelling is improving No c/o CP, palpitations, syncope, near syncope No c/o n/v/d Objective: I&O/Vital Signs 02/17/22 02/17/22 02/17/22 02/17/22 07:20 08:35 09:00 11:12 Temp 36.5 37.0 Pulse 110 116 Resp 18 18 B/P (MAP) 114/72 (86) 103/69 (80) Pulse Ox 94 93 94 O2 Delivery Room Air Room Air Room Air Room Air O2 Flow Rate 0.00 02/17/22 12:34 Temp 36.8 Pulse 60 Resp 18 B/P (MAP) 97/64 (75) Pulse Ox 96 O2 Delivery Room Air 02/16/22 23:59 Intake Total 1640 ml Output Total 2350 ml Balance -710 ml Weight (Pounds): 230 Weight (Ounces): 0.0 Weight (Calculated Kilograms): 104.750094 Constitutional: AAO x 3, well-developed, well-nourished Respiratory: No accessory muscle use, No respiratory distress; chest expansion is symmetric, chest is bilaterally symmetric, other (diminished bases bilat) Cardiovascular: regular rate-rhythm; No JVD; S1 and S2, systolic murmur Gastrointestional: No tender; soft, round, audible bowel sounds Extremities: significant edema (bilat LE swelling 3+) Neurologic/Psychiatric: grossly intact (moves all extremities) Skin: No rash on exposed areas, No ulcerations on exposed areas Results/Procedures: Labs Laboratory Tests 02/17/22 05:53: Sodium Level 141, Potassium Level 3.5L, Chloride Level 103, Carbon Dioxide Level 28, Anion Gap 10, Blood Urea Nitrogen 15, Creatinine 0.90, Estimat Glomerular Filtration Rate 69, BUN/Creatinine Ratio 17, Glucose Level 81, Calcium Level 10.0, Magnesium Level 1.4L Microbiology 02/15/22 Urine Culture - Final, Complete Escherichia coli A/P: Assessment: Acute on chronic systolic CHF NIC - Echocardiogram of 04-08-[address] Felton showed LVEF 10-15% with severe diffuse hypokinesis. LA and RA dilated. Mod to severe AoR. Mod MR. Mod to severe TR. PASP 50-55 mmHg - She reports she had a sleep study done that was "inconclusive" - she does not use CPAP or supplemental oxygen - managed by Dr. Kirk - AICD - implanted in September 2021 at [facility] (pt reports it to be a single chamber device) - followed by Dr. Woodward HTN HLD - statin tx H/O DVT R leg - OAC with Eliquis - managed by Dr. Kikr H/O Breast Cancer - has had a mastectomy Plan: Acute on chronic systolic CHF - continue current diuretic regimen Continue current home heart failure medications Request records from [facility] and Dr. Woodward - have not received Monitor lab closely - replace electrolytes as indicated JOSIE WINKLER Feb 17, 2022 10:31
--- NOTE | 2022-02-17 12:53 | Progress Note ---
GUERRERO NEWTON 02/17/22 1253: Subjective Date Seen by a Provider: Feb 17, 2022 Time Seen by a Provider: 09:30 Subjective/Events-last exam Patient was sitting up in a chair eating breakfast at the beginning of the interview. She reports that she is feeling better today and has been able to get up and move around more. Her legs are not as swollen today but are still not at their baseline. Patient reports that her abdominal swelling has almost completed resolved. The patient is hesitant to have the catheter removed because she is worried she will wet herself but is open to trying the Purewick. The patient experienced a few episodes of hypotension yesterday and her carvedilol was held due to that. Patient denies chest pain, palpitations, and SOB. Review of Systems General: No Night Sweats, No Fatigue, No Malaise; Appetite HEENT: No Head Aches, No Sinus Congestion, No Sore Throat Pulmonary: No Cough Cardiovascular: Edema; No: Chest Pain, Palpitations Gastrointestinal: No: Nausea, Vomiting, Abdominal Pain, Diarrhea, Constipation, Melena, Hematochezia Genitourinary: Other (catheter in place) Neurological: No: Weakness, Numbness Objective Exam Last Set of Vital Signs Vital Signs Date Time Temp Pulse Resp B/P (MAP) Pulse Ox O2 Delivery O2 Flow Rate FiO2 02/17/22 12:34 36.8 60 18 97/64 (75) 96 Room Air 02/17/22 08:35 0.00 02/15/22 22:52 21 Capillary Refill : Less Than 3 Seconds I&O Intake and Output 02/17/22 00:00 Intake Total 1640 ml Output Total 3250 ml Balance -1610 ml Intake Oral 1640 ml Output Urine Total 3250 ml # Bowel Movements 1 General: Alert, Oriented X3, Cooperative Neck: Supple, No JVD, No Thyromegaly Lungs: Clear to Auscultation, Normal Air Movement Heart: Regular Rate, Other (systolic murmur grade 3) Abdomen: Soft, No Tenderness, No Hepatosplenomegaly Extremities: No Cyanosis, Normal Pulses (3+ radial), Other (2+ pitting edema bilateral lower extremities) Skin: No Rashes, No Breakdown Neuro: Normal Speech, Normal Tone Other physical findings Catheter in place with clear light yellow urine in collection bag Results Lab Laboratory Tests 02/17/22 05:53: Sodium Level 141, Potassium Level 3.5L, Chloride Level 103, Carbon Dioxide Level 28, Anion Gap 10, Blood Urea Nitrogen 15, Creatinine 0.90, Estimat Glomerular Filtration Rate 69, BUN/Creatinine Ratio 17, Glucose Level 81, Calcium Level 10.0, Magnesium Level 1.4L Microbiology 02/15/22 Urine Culture - Final, Complete Escherichia coli Assessment/Plan Assessment/Plan Assess & Plan/Chief Complaint 1) Acute exacerbation of congestive heart failure - patients records have been requested from Dr. Woodward's office - patient has received 3 doses of IV furosemide 40mg and is still experiencing lower extremity edema, another bolus of furosemide 40mg will be given - give PO potassium chloride 20mEq with the lazsix bolus to prevent hypokalemia - restart home heart failure medications carvedilol 50mg 1xD, irbesartan 300mg 1xD - patient has has tachycardia since arriving to the hospital which is most likely from her CHF, cardiology has been consulted - gomes catheter is being removed and a purewick will be used 2) Atrial fibrillation - patient is not in atrial fibrillation - telemetry has been ordered due to the tachycardia the patient has been having - restart home medication amniodarone 100mg 2xD - restart Eliquis 5mg 2xD 3) UTI - no history of recurrent UTIs or recent UTI treatment - IV Rocephin 1g 1xD can be changed to TMP/SMX 160/800 2Xd for one day 4) Hypoglycemeia - accuchek ordered 5) Hematochezia - history of hyperplastic polyps measuring over 10mm - fecal occult test ordered - patient is due for another colonoscopy and her primary will be contacted about this 6) Knee pain - Tylenol 650mg Q6hr 7) Vertigo - Restart home medication Meclizine 25mg Q6hrs 8) Depression - Venlafaxine 150mg 1xD 9) Breast cancer with full remission - Letrozole 2.5mg Clinical Quality Measures Admission Status Admission Dx 1) Acute exacerbation of congestive heart failure - patients records have been requested from Dr. Woodward's office - patient has received 2 doses of IV furosemide 40mg and is still experiencing lower extremity edema, another bolus of furosemide 40mg will be given - give PO potassium chloride 20mEq with the lazsix bolus to prevent hypokalemia - restart home heart failure medications carvedilol 50mg 1xD, irbesartan 300mg 1xD - patient has has tachycardia since arriving to the hospital, cardiology has been consulted - discussed removing the gomes catheter and placing a purewick 2) Atrial fibrillation - patient is not in atrial fibrillation - telemetry has been ordered due to the tachycardia the patient has been having - restart home medication amniodarone 2xD - restart Eliquis 5mg 2xD 3) UTI - no history of recurrent UTIs or recent UTI treatment - IV Rocephin 1g 1xD 4) Hypoglycemeia - 68 this morning before the patient had breakfast - accuchek ordered 5) Hematochezia - history of hyperplastic polyps measuring over 10mm - fecal occult test ordered - patient is due for another colonoscopy and her primary will be contacted about this 6) Knee pain - Tylenol 650mg Q6hr 7) Vertigo - Restart home medication Meclizine 25mg Q6hrs ANAND CÁRDENAS MD 02/17/22 1453: Assessment/Plan Assessment/Plan Assess & Plan/Chief Complaint Pt reports doing much better today. She was up walking with PT. Diuresing well. Planning to DC gomes today. Continue Lasix. Resume home meds. Appreciate cardiology help. Hopefully home tomorrow if doing well. Supervisory-Addendum Brief Verification & Attestation Participated in pt care: history, MDM, physical Personally performed: exam, history, MDM, supervision of care Care discussed with: Medical Student Procedures: n/a Results interpretation: Verified all documentation Verification and Attestation of Medical Student E/M Service A medical student performed and documented this service in my presence. I reviewed and verified all information documented by the medical student and made modifications to such information, when appropriate. I personally performed the physical exam and medical decision making. Anand Cárdenas, Feb 17, 2022,14:51 GUERRERO NEWTON Feb 17, 2022 12:53 ANAND CÁRDENAS MD Feb 17, 2022 14:53
--- NOTE | 2022-02-17 14:50 | Progress Note - Cardiology ---
Cardiology SOAP Progress Note Subjective: Gen malaise and weakness Shortness of breath with activity No cp or palp or syncope Swelling present but better No n/v/d Objective: I&O/Vital Signs 02/17/22 02/17/22 02/17/22 02/17/22 04:10 07:20 08:35 09:00 Temp 36.6 36.5 Pulse 115 110 Resp 20 18 B/P (MAP) 118/69 (85) 114/72 (86) Pulse Ox 95 94 93 O2 Delivery Room Air Room Air Room Air Room Air O2 Flow Rate 0.00 02/17/22 02/17/22 11:12 12:34 Temp 37.0 36.8 Pulse 116 60 Resp 18 18 B/P (MAP) 103/69 (80) 97/64 (75) Pulse Ox 94 96 O2 Delivery Room Air Room Air 02/17/22 00:00 Intake Total 1640 ml Output Total 2350 ml Balance -710 ml Weight (Pounds): 230 Weight (Ounces): 0.0 Weight (Calculated Kilograms): 104.032847 Constitutional: AAO x 3, well-developed, well-nourished Respiratory: No accessory muscle use, No respiratory distress; chest expansion is symmetric, chest is bilaterally symmetric, other (diminished bases bilat) Cardiovascular: regular rate-rhythm; No JVD; S1 and S2, systolic murmur Gastrointestional: No tender; soft, round, audible bowel sounds Extremities: significant edema (bilat LE swelling 3+) Neurologic/Psychiatric: grossly intact (moves all extremities) Skin: No rash on exposed areas, No ulcerations on exposed areas Results/Procedures: Labs Laboratory Tests 02/17/22 05:53: Sodium Level 141, Potassium Level 3.5L, Chloride Level 103, Carbon Dioxide Level 28, Anion Gap 10, Blood Urea Nitrogen 15, Creatinine 0.90, Estimat Glomerular Filtration Rate 69, BUN/Creatinine Ratio 17, Glucose Level 81, Calcium Level 10.0, Magnesium Level 1.4L Microbiology 02/15/22 Urine Culture - Final, Complete Escherichia coli Laboratory Tests 02/15/22 18:30 02/16/22 05:46 02/17/22 05:53 A/P: Assessment: Acute on chronic systolic CHF Relative hypotension that prevents optimization of heart failure meds [facility] - Echocardiogram of 04-08-[address] Felton showed LVEF 10-15% with severe di ffuse hypokinesis. LA and RA dilated. Mod to severe AoR. Mod MR. Mod to severe TR. PASP 50-55 mmHg - She reports she had a sleep study done that was "inconclusive" - she does not use CPAP or supplemental oxygen - managed by Dr. Kirk - AICD - implanted in September 2021 at [facility] (pt reports it to be a single chamber device) - followed by Dr. Woodward HLD - statin tx H/O DVT R leg - OAC with Eliquis - managed by Dr. Kirk H/O Breast Cancer - has had a mastectomy Plan: * Replenish K and Mg * Reduce carvedilol to provide more room on bp * Add Entresto * Add Jardiance * Increase K * If above tolerated, then add spironolactone * Monitor labs * I discussed treatment plan with her in detail and answered questions CHAU POPE MD FACP [facility] Feb 17, 2022 14:50
[2022-02-18] VITALS (8 sets, daily range): BP systolic 101–117; BP diastolic 56–77
[2022-02-18 06:29] LABS: POTASSIUM 3.9 MMOL/L (3.6-5.0)
[2022-02-18 06:31] LABS: CALCIUM 9.7 MG/DL (8.5-10.1)
[2022-02-18 06:35] LABS: CREATININE SERUM 0.84 MG/DL (0.60-1.30)
[2022-02-18 06:37] LABS: MAGNESIUM 1.6 MG/DL (1.6-2.4)
[2022-02-18] MEDS: FUROSEMIDE 40 MG/4 ML INJ (LASIX) IVP SCH ×2 (06:50→17:23)
[2022-02-18] MEDS: CATHETER FLUSH 10 ML SYR IVP SCH ×3 (06:52→20:41)
[2022-02-18] MEDS: AMIODARONE 200 MG (CORDARONE) TAB PO SCH (08:45)
[2022-02-18] MEDS: CYANOCOBALAMIN 1,000 MCG (VITAMIN B-12) TABLET PO SCH (08:45)
[2022-02-18] MEDS: EMPAGLIFLOZIN 10 MG TABLET (JARDIANCE) PO SCH (08:45)
[2022-02-18] MEDS: LETROZOLE 2.5 MG (FEMARA) TAB PO SCH (08:46)
[2022-02-18] MEDS: VENlafaxine XR 75 MG (EFFEXOR XR) CAP PO SCH (08:46)
[2022-02-18] MEDS: SACUBITRIL/VALSARTAN 24/26 MG (ENTRESTO) TABLET PO SCH ×2 (08:47→20:41)
[2022-02-18] MEDS: cefTRIAXone 1 GM PRE-MIX 50 ML IV SCH (08:47)
[2022-02-18] MEDS: KCL 20 MEQ TAB (K-DUR) PO SCH ×2 (08:47→20:41)
[2022-02-18] MEDS: APIXABAN 5 MG (ELIQUIS) TABLET PO SCH ×2 (08:47→20:41)
[2022-02-18] MEDS ORDERED: FUROSEMIDE 40 MG/4 ML INJ (LASIX) IVP ONE (09:00)
--- NOTE | 2022-02-18 09:00 | Progress Note - Cardiology ---
Cardiology SOAP Progress Note Subjective: Sitting up in bed Feels breathing is back to baseline, but LE swelling has not improved much No c/o CP or palpitations No c/o n/v Objective: I&O/Vital Signs 02/21/22 02/21/22 02/21/22 02/21/22 00:00 03:24 04:00 07:59 Temp 36.1 36.0 36.5 Pulse 116 116 116 116 Resp 16 16 18 B/P (MAP) 101/52 (68) 109/56 (73) 97/53 (68) Pulse Ox 97 96 97 96 O2 Delivery Room Air Room Air Room Air FiO2 21 02/21/22 02/21/22 08:00 09:13 Pulse 119 Resp 18 B/P (MAP) 105/65 (78) O2 Delivery Room Air 02/21/22 00:00 Intake Total 1170 ml Output Total 1300 ml Balance -130 ml Weight (Pounds): 230 Weight (Ounces): 0.0 Weight (Calculated Kilograms): 104.793615 Constitutional: AAO x 3, well-developed, well-nourished Respiratory: No accessory muscle use, No respiratory distress; chest expansion is symmetric, chest is bilaterally symmetric, other (diminished bases bilat) Cardiovascular: regular rate-rhythm; No JVD; S1 and S2, systolic murmur Gastrointestional: No tender; soft, round, audible bowel sounds Extremities: significant edema (bilat LE swelling 3+ (improving)) Neurologic/Psychiatric: grossly intact (moves all extremities) Skin: No rash on exposed areas, No ulcerations on exposed areas Results/Procedures: Labs Laboratory Tests 02/21/22 05:41: White Blood Count 8.1, Red Blood Count 5.01, Hemoglobin 13.5, Hematocrit 42, Mean Corpuscular Volume 83, Mean Corpuscular Hemoglobin 27, Mean Corpuscular Hemoglobin Concent 32, Red Cell Distribution Width 17.3H, Platelet Count 213, Mean Platelet Volume 11.0, Immature Granulocyte % (Auto) 0, Neutrophils (%) (Auto) 64, Lymphocytes (%) (Auto) 21, Monocytes (%) (Auto) 13H, Eosinophils (%) (Auto) 2, Basophils (%) (Auto) 1, Neutrophils # (Auto) 5.2, Lymphocytes # (Auto) 1.7, Monocytes # (Auto) 1.0, Eosinophils # (Auto) 0.2, Basophils # (Auto) 0.0, Immature Granulocyte # (Auto) 0.0, Sodium Level 140, Potassium Level 4.2, Chloride Level 100, Carbon Dioxide Level 27, Anion Gap 13, Blood Urea Nitrogen 29H, Creatinine 1.14, Estimat Glomerular Filtration Rate 52, BUN/Creatinine Ratio 25, Glucose Level 92, Calcium Level 10.4H, Corrected Calcium 11.0H, Magnesium Level 1.9, Total Bilirubin 2.3H, Aspartate Amino Transf (AST/SGOT) 20, Alanine Aminotransferase (ALT/SGPT) 13, Alkaline Phosphatase 67, Total Protein 6.3L, Albumin 3.3, Thyroid Stimulating Hormone (TSH) 5.70H Microbiology 02/15/22 Urine Culture - Final, Complete Escherichia coli A/P: Assessment: Acute on chronic systolic CHF Relative hypotension that prevents optimization of heart failure meds [facility] - Echocardiogram of 04-08-[address] Felton showed LVEF 10-15% with severe diffuse hypokinesis. LA and RA dilated. Mod to severe AoR. Mod MR. Mod to severe TR. PASP 50-55 mmHg - She reports she had a sleep study done that was "inconclusive" - she does not use CPAP or supplemental oxygen - managed by Dr. Kirk - AICD - implanted in September 2021 at [facility] (pt reports it to be a single chamber device) - followed by Dr. Woodward HLLenin - statin tx H/O DVT R leg - OAC with Eliquis - managed by Dr. Kirk H/O Breast Cancer - has had a mastectomy Plan: * Tolerating addition of Jardiance and Entresto * Add aldactone * Increase IV Lasix * She has been drinking quite a bit of fluid - discussed importance of limiting fluid intake * Monitor labs * I discussed treatment plan with her in detail and answered questions JOSIE WINKLER Feb 18, 2022 09:00
[2022-02-18] MEDS: SPIRONOLACTONE 25 MG (ALDACTONE) TAB PO SCH (09:22)
--- NOTE | 2022-02-18 10:53 | Physical Therapy Progress Note ---
Therapy Progress Note Patient adamantly declined PT stating, "I have been getting up and going to the bathroom every 20 minutes due to the Lasix they gave me. I'm getting plenty of exercises." Physician notified. Will attempt tomorrow a.m. 1 ref ANUJ HART PT Feb 18, 2022 10:52
--- NOTE | 2022-02-18 13:15 | Progress Note ---
GUERRERO NEWTON 02/18/22 1315: Subjective Date Seen by a Provider: Feb 18, 2022 Time Seen by a Provider: 09:15 Subjective/Events-last exam Patient was awake and sitting up in bed at the beginning of the interview. She reports that she doesn't think the swelling has improved in her legs or arms since yesterday. She says she has been constantly peeing and does not like the Purewick because it leaks. The patient has not gotten up to work with PT because she is worried about leaking urine when she gets up out of bed. Cardiology spoke with her about starting some new medication that would help with her CHF. Denies SOB, chest pain, and palpitations. Review of Systems General: No Chills, No Night Sweats; Fatigue, Appetite HEENT: No Head Aches, No Visual Changes, No Sinus Congestion, No Sore Throat Pulmonary: No Dyspnea, No Cough Cardiovascular: Edema; No: Chest Pain, Palpitations Gastrointestinal: No: Nausea, Vomiting, Abdominal Pain, Diarrhea, Constipation Genitourinary: No Dysuria; Frequency Neurological: Weakness; No: Numbness Objective Exam Last Set of Vital Signs Vital Signs Date Time Temp Pulse Resp B/P (MAP) Pulse Ox O2 Delivery O2 Flow Rate FiO2 02/18/22 11:10 35.8 109 18 107/69 (82) 92 Room Air 02/18/22 07:30 21 02/18/22 07:27 0.00 Capillary Refill : Less Than 3 Seconds I&O Intake and Output 02/18/22 00:00 Intake Total 2040 ml Output Total 2950 ml Balance -910 ml Intake Oral 2040 ml Output Urine Total 2950 ml General: Alert, Oriented X3, Cooperative, No Acute Distress HEENT: Mucous Memb Moist/[place] Neck: Supple, No JVD, No Thyromegaly Lungs: Clear to Auscultation, Normal Air Movement Heart: Regular Rate, Other (grade 3 systolic murmur) Abdomen: Soft, No Tenderness, No Hepatosplenomegaly, No Masses Extremities: No Clubbing, No Cyanosis, Other (3+ pitting edema in lower extremities, 1+ pitting edema of upper extremities) Skin: No Rashes, No Breakdown Neuro: Normal Speech, Normal Tone Psych/Mental Status: Mental Status NL, Mood NL Other physical findings urine in Purewick tube is a clear, light yellow color Results Lab Laboratory Tests 02/18/22 05:20: Sodium Level 138, Potassium Level 3.9, Chloride Level 103, Carbon Dioxide Level 28, Anion Gap 7, Blood Urea Nitrogen 15, Creatinine 0.84, Estimat Glomerular Filtration Rate 75, BUN/Creatinine Ratio 18, Glucose Level 89, Calcium Level 9.7, Magnesium Level 1.6 Microbiology 02/15/22 Urine Culture - Final, Complete Escherichia coli Assessment/Plan Assessment/Plan Assess & Plan/Chief Complaint 1) Acute exacerbation of congestive heart failure - patients records have been requested from Dr. Woodward's office - patient has received severa; doses of IV furosemide 40mg and is still experiencing lower extremity edema, furosemide 80mg has been started - give PO potassium chloride 20mEq with the lasix bolus to prevent hypokalemia - restart home heart failure medications irbesartan 300mg 1xD - carvedilol 50mg 1xD has been changed to 6.25mg BID by cardiology - cardiology has started Entresto 2tabs BID, Jardiance 10mg 1xD, and Spironolactone 25mg 1xD - patient has has tachycardia since arriving to the hospital which is most likely from her CHF, cardiology has been consulted - Purewick will be used along with an an adult pullup to prevent leakage - the patient has had multiple conversations now as to the importance of taking her medications as prescribed 2) Atrial fibrillation - patient is not in atrial fibrillation - telemetry has been ordered due to the tachycardia the patient has been having - restart home medication amniodarone 100mg 2xD - restart Eliquis 5mg 2xD 3) UTI - no history of recurrent UTIs or recent UTI treatment - patient has finished a 3 day course of Abx for her uncomplicated UTI 4) Weakness - PT and OT have been ordered 5) Hypoglycemeia - accuchek ordered 6) Hematochezia - history of hyperplastic polyps measuring over 10mm - fecal occult test ordered - patient is due for another colonoscopy and her primary will be contacted about this 7) Knee pain - Tylenol 650mg Q6hr 8) Vertigo - Restart home medication Meclizine 25mg Q6hrs 9) Depression - Venlafaxine 150mg 1xD 10) Breast cancer with full remission - Letrozole 2.5mg Clinical Quality Measures Admission Status Admission Dx 1) Acute exacerbation of congestive heart failure - patients records have been requested from Dr. Woodward's office - patient has received 2 doses of IV furosemide 40mg and is still experiencing lower extremity edema, another bolus of furosemide 40mg will be given - give PO potassium chloride 20mEq with the lazsix bolus to prevent hypokalemia - restart home heart failure medications carvedilol 50mg 1xD, irbesartan 300mg 1xD - patient has has tachycardia since arriving to the hospital, cardiology has been consulted - discussed removing the gomes catheter and placing a purewick 2) Atrial fibrillation - patient is not in atrial fibrillation - telemetry has been ordered due to the tachycardia the patient has been having - restart home medication amniodarone 2xD - restart Eliquis 5mg 2xD 3) UTI - no history of recurrent UTIs or recent UTI treatment - IV Rocephin 1g 1xD 4) Hypoglycemeia - 68 this morning before the patient had breakfast - accuchek ordered 5) Hematochezia - history of hyperplastic polyps measuring over 10mm - fecal occult test ordered - patient is due for another colonoscopy and her primary will be contacted about this 6) Knee pain - Tylenol 650mg Q6hr 7) Vertigo - Restart home medication Meclizine 25mg Q6hrs ANAND CÁRDENAS MD 02/18/22 1615: Assessment/Plan Assessment/Plan Assess & Plan/Chief Complaint Patient reports feeling better today. She has been up ambulatory. She does not like the purewick. I offered adult diapers but she does not want that either. Discussed with cardiology and we will increase Lasix and encourage patient to take in less orally. Still somewhat tachycardic but given softer blood pressures hard to titrate up her Coreg. Appreciate cardiology assistance in patient. Hopefully home over the weekend. Completed third dose of Rocephin today. Supervisory-Addendum Brief Verification & Attestation Participated in pt care: history, MDM, physical Personally performed: exam, history, MDM, supervision of care Care discussed with: Medical Student Procedures: n/a Results interpretation: Verified all documentation Verification and Attestation of Medical Student E/M Service A medical student performed and documented this service in my presence. I reviewed and verified all information documented by the medical student and made modifications to such information, when appropriate. I personally performed the physical exam and medical decision making. Anand Cárdenas, Feb 18, 2022,16:12 GUERRERO NEWTON Feb 18, 2022 13:15 ANAND CÁRDENAS MD Feb 18, 2022 16:15
--- NOTE | 2022-02-18 14:30 | Occupational Ther Daily Note ---
OT Current Status-Daily Note Subjective Pt laying in bed at incline, alert. Pt c/o no pain. Pt agrees to therapy. Pt refused to do any OOB activities. Pt hyperverbal throughout session. Mental Status/Objective Patient Orientation: Person, Place, Time, Situation Attachments: Other-See Comments (external catheter) ADL-Treatment Therapy Code Descriptions/Definitions Functional Harvey Measure: 0=Not Assessed/NA 4=Minimal Assistance 1=Total Assistance 5=Supervision or Setup 2=Maximal Assistance 6=Modified Harvey 3=Moderate Assistance 7=Complete IndependenceSCALE: Activities may be completed with or without assistive devices. 8-Jtpihmrkda-oxrnkct completes the activity by him/herself with no assistance from a helper. 5-Set-up or Clean-up Assistance-helper sets up or cleans up; patient completes activity. [place] assists only prior to or following the activity. 4-Supervision or Touching Assistance-helper provides verbal cues and/or touching/steadying and/or contact guard assistance as patient completes activity. Assistance may be provided throughout the activity or intermittently. 3-Partial/Moderate Assistance-helper does LESS THAN HALF the effort. [place] lifts, holds or supports trunk or limbs, but provides less than half the effort. 2-Substantial/Maximal Assistance-helper does MORE THAN HALF the effort. [place] lifts or holds trunk or limbs and provides more than half the effort. 2-Bjmtcbqot-kgynpe does ALL the effort. Patient does none of the effort to complete the activity. Or, the assistance of 2 or more helpers is required for the patient to complete the activity. If activity was not attempted, code reason: 7-Patient Refused. 9-Not Applicable-not attempted and the patient did not perform the activity before the current illness, exacerbation or injury. 10-Not Attempted due to Environmental Limitations-(lack of equipment, weather restraints, etc.). 88-Not Attempted due to Medical Conditions or Safety Concerns. Eating (QC): 6 (Used clinical judgement, pt states she ate meal prior to arrival independently. ) Other Treatment Pt completed 10 reps of 5 different arm exercises with resistance. Pt required no breaks between reps. Pt displays weakness and limited ROM in L shoulder. Skilled instruction given for proper technique. Pt in bed at incline at end of session. Call light/phone in reach. All needs met. Education OT Patient Education: Home exercise program Teaching Recipient: Patient Teaching Methods: Demonstration, Discussion Response to Teaching: Verbalize Understanding, Return Demonstration OT Skilled Nursing Goals Skilled Nursing Goals Time Frame: Mar 02, 2022 Oral Hygiene (QC): 5 Toileting Hygiene (QC): 4 Shower/Bathe Self (QC): 4 Upper Body Dressing (QC): 4 Lower Body Dressing (QC): 4 On/Off Footwear (QC): 4 Additional Goals: 1-Demonstrate ADL Tasks, 2-Verbalize Understanding, 3- ImproveStrength/Jamir 1=Demonstrate adherence to instructed precautions during ADL tasks. 2=Patient will verbalize/demonstrate understanding of assistive devices/modifications for ADL. 3=Patient will improve strength/tolerance for activity to enable patient to perform ADL's. OT Education/Plan Discharge Recommendations Plan/Recommendations: Continue POC Treatment Plan/Plan of Care Patient would benefit from OT for education, treatment and training to promote independence in ADL's, mobility, safety and/or upper extremity function for ADL's. Plan of Care: ADL Retraining, Functional Mobility, Group Exercise/Act as Ind, UE Funct Exercise/Act Treatment Duration: Mar 02, 2022 Frequency: 3 times per week (3-5 x/week) Estimated Hrs Per Day: .25 hour per day Agreement: Yes Rehab Potential: Fair Time/GCodes Start Time: 13:53 Stop Time: 14:19 Total Time Billed (hr/min): 26 Billed Treatment Time 1 visit FA 1 (10 min) EX 1 (16 min) DEVORAH ELKINS Feb 18, 2022 14:30
--- NOTE | 2022-02-18 15:57 | Progress Note - Cardiology ---
Cardiology SOAP Progress Note Subjective: No cp or palp or syncope Shortness of breath and swelling improving No n/v/d Some gen weakness and malaise Objective: I&O/Vital Signs 02/18/22 02/18/22 02/18/22 02/18/22 04:03 07:27 07:30 07:43 Temp 36.3 36.3 36.0 Pulse 115 117 110 Resp 16 18 B/P (MAP) 117/77 (90) 113/69 (84) Pulse Ox 94 96 96 93 O2 Delivery Room Air Room Air Room Air O2 Flow Rate 0.00 FiO2 02/18/22 02/18/22 02/18/22 08:00 11:10 15:52 Temp 35.8 36.9 Pulse 109 119 Resp 18 18 B/P (MAP) 107/69 (82) 107/65 (79) Pulse Ox 92 96 O2 Delivery Room Air Room Air Room Air 02/18/22 00:00 Intake Total 1380 ml Output Total 2200 ml Balance -820 ml Weight (Pounds): 230 Weight (Ounces): 0.0 Weight (Calculated Kilograms): 104.274048 Constitutional: AAO x 3, well-developed, well-nourished Respiratory: No accessory muscle use, No respiratory distress; chest expansion is symmetric, chest is bilaterally symmetric, other (diminished bases bilat) Cardiovascular: regular rate-rhythm; No JVD; S1 and S2, systolic murmur Gastrointestional: No tender; soft, round, audible bowel sounds Extremities: significant edema (bilat LE swelling 3+ (improving)) Neurologic/Psychiatric: grossly intact (moves all extremities) Skin: No rash on exposed areas, No ulcerations on exposed areas Results/Procedures: Labs Laboratory Tests 02/18/22 05:20: Sodium Level 138, Potassium Level 3.9, Chloride Level 103, Carbon Dioxide Level 28, Anion Gap 7, Blood Urea Nitrogen 15, Creatinine 0.84, Estimat Glomerular Yuri tration Rate 75, BUN/Creatinine Ratio 18, Glucose Level 89, Calcium Level 9.7, Magnesium Level 1.6 Microbiology 02/15/22 Urine Culture - Final, Complete Escherichia coli Laboratory Tests 02/17/22 05:53 02/18/22 05:20 A/P: Assessment: Acute on chronic systolic CHF Relative hypotension that prevents optimization of heart failure meds NICM - Echocardiogram of 12-9-[address] Felton showed LVEF 10-15% with severe diffuse hypokinesis. LA and RA dilated. Mod to severe AoR. Mod MR. Mod to severe TR. PASP 50-55 mmHg - She reports she had a sleep study done that was "inconclusive" - she does not use CPAP or supplemental oxygen - managed by Dr. Kirk - AICD - implanted in September 2021 at [facility] (pt reports it to be a single chamber device) - followed by Dr. Woodward HLD - statin tx H/O DVT R leg - OAC with Eliquis - managed by Dr. Kirk H/O Breast Cancer - has had a mastectomy Plan: * Tolerating addition of Jardiance and Entresto * Add aldactone * Increase IV Lasix * She has been drinking quite a bit of fluid - discussed importance of limiting fluid intake * Monitor labs * I discussed treatment plan with her in detail and answered questions * I discussed her case in detail with her pcp CHAU Lewis MD FACP [facility] Feb 18, 2022 15:57
[2022-02-19] VITALS: BP 105/79
[2022-02-19 03:49] VITALS: BP 103/68
[2022-02-19] MEDS: FUROSEMIDE 40 MG/4 ML INJ (LASIX) IVP SCH (06:40)
[2022-02-19] MEDS: CATHETER FLUSH 10 ML SYR IVP SCH ×3 (06:40→19:54)
[2022-02-19 07:55] VITALS: BP 115/55
[2022-02-19] MEDS: SACUBITRIL/VALSARTAN 24/26 MG (ENTRESTO) TABLET PO SCH ×2 (08:00→19:52)
[2022-02-19] MEDS: VENlafaxine XR 75 MG (EFFEXOR XR) CAP PO SCH (08:00)
[2022-02-19] MEDS: KCL 20 MEQ TAB (K-DUR) PO SCH ×2 (08:01→19:53)
[2022-02-19] MEDS: CYANOCOBALAMIN 1,000 MCG (VITAMIN B-12) TABLET PO SCH (08:01)
[2022-02-19] MEDS: LETROZOLE 2.5 MG (FEMARA) TAB PO SCH (08:01)
[2022-02-19] MEDS: SPIRONOLACTONE 25 MG (ALDACTONE) TAB PO SCH (08:01)
[2022-02-19] MEDS: APIXABAN 5 MG (ELIQUIS) TABLET PO SCH ×2 (08:01→19:53)
[2022-02-19] MEDS: EMPAGLIFLOZIN 10 MG TABLET (JARDIANCE) PO SCH (08:01)
[2022-02-19] MEDS: AMIODARONE 200 MG (CORDARONE) TAB PO SCH (08:02)
--- NOTE | 2022-02-19 09:16 | Physical Therapy Daily Note ---
PT Daily Note-Current Subjective Patient sitting up in bed eating breakfast upon PT arrival, agreeable to treatment. Pain Section J - Health Conditions 1. Rarely or not at all 2. Occasionally 3. Frequently 4. Almost constantly 8. Unable to answer Pain Effect on Sleep: 1 Pain Interference with Therapy: 1 Pain Interference w/Day-to-Day: 1 Mental Status Patient Orientation: Person, Place, Time, Situation Transfers SCALE: Activities may be completed with or without assistive devices. 0-[id number]-[id number] completes the activity by him/herself with no assistance from a helper. 5-Set-up or Clean-up Assistance-helper sets up or cleans up; patient completes activity. [place] assists only prior to or following the activity. 4-Supervision or Touching Assistance-helper provides verbal cues and/or touching/steadying and/or contact guard assistance as patient completes activity. Assistance may be provided throughout the activity or intermittently. 3-Partial/Moderate Assistance-helper does LESS THAN HALF the effort. [place] lifts, holds or supports trunk or limbs, but provides less than half the effort. 2-Substantial/Maximal Assistance-helper does MORE THAN HALF the effort. [place] lifts or holds trunk or limbs and provides more than half the effort. 0-Rolqindss-nxpixr does ALL the effort. Patient does none of the effort to complete the activity. Or, the assistance of 2 or more helpers is required for the patient to complete the activity. If activity was not attempted, code reason: 7-Patient Refused. 9-Not Applicable-not attempted and the patient did not perform the activity before the current illness, exacerbation or injury. 10-Not Attempted due to Environmental Limitations-(lack of equipment, weather restraints, etc.). 88-Not Attempted due to Medical Conditions or Safety Concerns. Roll Left & Right (QC): 4 Sit to Lying (QC): 4 Lying to Sitting/Side of Bed(Q: 4 Sit to Stand (QC): 4 Chair/Ouh-yp-Resfr Xfer(QC): 4 Weight Bearing Right Lower Extremity: Right Weight Bearing/Tolerated Left Lower Extremity: Left Weight Bearing/Tolerated Gait Training Does the Patient Walk?: Yes Distance: 150 Walk 10 feet (QC): 4 Walk 50 ft with 2 Turns(QC): 4 Walk 150 ft (QC): 4 Gait Persons Needed: 1 Gait Assistive Device: FWW Assessment Current Status: Poor Progress Patient performs all observed bed mobility and transfers with SBA. She requests to leave the [facility] in as she feels she will be incontinent while ambulating. Patient ambulates 150 feet with FWW, with SBA and verbal cues for safety, progression, posture and conservation of energy. Patient requests to return to the room earlier than this PT expected and reports her legs feel like they are giving out. Patient in chair post treatment with all needs met, nursing notified, call light in hand. PT Electrical Prospector Goals Electrical Prospector Goals PT Electrical Prospector Goals Time Frame: Feb 23, 2022 Roll Left & Right (QC): 4 (SBA) Sit to Lying (QC): 4 (SBA) Lying-Sitting on Side/Bed(QC): 4 (SBA) Sit to Stand (QC): 4 (SBA) Walk 10 feet (QC): 4 (SBA) Walk 50ft with 2 Turns (QC): 4 (SBA) PT Plan Treatment/Plan Treatment Plan: Continue Plan of Care Treatment Plan: Bed Mobility, Education, Functional Activity Jamir, Functional Strength, Gait, Safety, Therapeutic Exercise, Transfers Treatment Duration: Feb 23, 2022 Frequency: 6 times per week Estimated Hrs Per Day: .25 hour per day Patient and/or Family Agrees t: Yes Safety Risks/Education Patient Education: Gait Training Teaching Recipient: Patient Teaching Methods: Demonstration, Discussion Response to Teaching: Verbalize Understanding, Return Demonstration Time/GCodes Time In: 851 Time Out: 915 Total Billed Treatment Time: 24 Total Billed Treatment Visit, Gait (2) AUSTIN GARCIA PT Feb 19, 2022 09:16
--- NOTE | 2022-02-19 10:45 | Progress Note ---
GUERRERO NEWTON 02/19/22 1045: Subjective Date Seen by a Provider: Feb 19, 2022 Time Seen by a Provider: 09:30 Subjective/Events-last exam Patient was awake, sitting in a chair at the beginning of the interview. She reports that she has been having a headache on and off that improves with tylenol. She says she has a history of headaches and this feels similar to previous headaches she has had. Patient refused to get out of bed to work with PT and OT yesterday because of weakness in her legs. She worked with them this morning and she reports she felt lightheaded when they first got her up out of bed but she denies feeling as if she was going to pass out. The Purewick is still being used. Patient feels as if the swelling in her arms and hands has improved from yesterday. She is open to the idea of going home tomorrow. Her main concern about going home is that she won't be able to make it to the restroom and will wet herself. Patient denies SOB, chest pain, and palpitations. Review of Systems General: No Chills, No Night Sweats; Fatigue, Appetite HEENT: Head Aches; No Visual Changes, No Sinus Congestion, No Sore Throat Pulmonary: No Dyspnea, No Cough Cardiovascular: Edema (in her bilateral legs and arms); No: Chest Pain, Palpitations Gastrointestinal: No: Nausea, Vomiting, Abdominal Pain, Diarrhea, Constipation Genitourinary: Frequency, Other (Purewick in place) Neurological: Weakness; No: Numbness Objective Exam Last Set of Vital Signs Vital Signs Date Time Temp Pulse Resp B/P (MAP) Pulse Ox O2 Delivery O2 Flow Rate FiO2 02/19/22 08:00 Room Air 02/19/22 07:55 36.4 111 18 115/55 (75) 94 02/18/22 07:30 21 02/18/22 07:27 0.00 Capillary Refill : Less Than 3 Seconds I&O Intake and Output 02/19/22 00:00 Intake Total 1653 ml Output Total 2950 ml Balance -1297 ml Intake Oral 1653 ml Output Urine Total 2950 ml General: Alert, Oriented X3, Cooperative, No Acute Distress HEENT: Mucous Memb Moist/[place] Neck: Supple, No JVD, No Thyromegaly Lungs: Clear to Auscultation, Normal Air Movement Heart: Regular Rate, Other (3+ systolic murmur) Abdomen: Soft, No Tenderness, No Hepatosplenomegaly Extremities: No Clubbing, No Cyanosis, Other (1+ pitting edema of arms/ 1+ pitting edema of legs) Skin: No Rashes, No Breakdown Neuro: Normal Speech, Normal Tone Psych/Mental Status: Mental Status NL, Mood NL Other physical findings Urine from the Purewick is a clear, light yellow color Results Lab Microbiology 02/15/22 Urine Culture - Final, Complete Escherichia coli Assessment/Plan Assessment/Plan Assess & Plan/Chief Complaint 1) Acute exacerbation of congestive heart failure - patients records have been requested from Dr. Woodward's office - patient has received several; doses of IV furosemide 40mg and is still experiencing lower extremity edema, furosemide 80mg has been started - give PO potassium chloride 20mEq with the lasix bolus to prevent hypokalemia - restart home heart failure medications irbesartan 300mg 1xD - carvedilol 50mg 1xD has been changed to 6.25mg BID by cardiology - cardiology has started Entresto 2tabs BID, Jardiance 10mg 1xD, and Spironolactone 25mg 1xD - patient has been experiencing hypotension and cardiology is concerned that her new meds may worsen then - patient has had tachycardia since arriving to the hospital which is most likely from her CHF, cardiology has been consulted - Purewick will be used along with an an adult pullup to prevent leakage from diuresis - the patient has had multiple conversations now as to the importance of taking her medications as prescribed - all of the patients medications will be changed to oral doses to prepare for her discharge tomorrow, BP will be monitored -Furosemide 80mg 1xD -all other medications are currently PO 2) Atrial fibrillation - patient is not in atrial fibrillation - telemetry has been ordered due to the tachycardia the patient has been having - restart home medication amniodarone 100mg 2xD - restart Eliquis 5mg 2xD 3) UTI - no history of recurrent UTIs or recent UTI treatment - patient has finished a 3 day course of Abx for her uncomplicated UTI 4) Weakness - PT and OT have been ordered 5) Hypoglycemeia - accuchek ordered 6) Hematochezia - history of hyperplastic polyps measuring over 10mm - fecal occult test ordered - patient is due for another colonoscopy and her primary will be contacted about this 7) Knee pain - Tylenol 650mg Q6hr 8) Headache - Tylenol is available 9) Vertigo - Restart home medication Meclizine 25mg Q6hrs 10) Depression - Venlafaxine 150mg 1xD 11) Breast cancer with full remission - Letrozole 2.5mg Clinical Quality Measures Admission Status Admission Dx 1) Acute exacerbation of congestive heart failure - patients records have been requested from Dr. Woodward's office - patient has received 2 doses of IV furosemide 40mg and is still experiencing lower extremity edema, another bolus of furosemide 40mg will be given - give PO potassium chloride 20mEq with the lazsix bolus to prevent hypokalemia - restart home heart failure medications carvedilol 50mg 1xD, irbesartan 300mg 1xD - patient has has tachycardia since arriving to the hospital, cardiology has been consulted - discussed removing the gomes catheter and placing a purewick 2) Atrial fibrillation - patient is not in atrial fibrillation - telemetry has been ordered due to the tachycardia the patient has been having - restart home medication amniodarone 2xD - restart Eliquis 5mg 2xD 3) UTI - no history of recurrent UTIs or recent UTI treatment - IV Rocephin 1g 1xD 4) Hypoglycemeia - 68 this morning before the patient had breakfast - accuchek ordered 5) Hematochezia - history of hyperplastic polyps measuring over 10mm - fecal occult test ordered - patient is due for another colonoscopy and her primary will be contacted about this 6) Knee pain - Tylenol 650mg Q6hr 7) Vertigo - Restart home medication Meclizine 25mg Q6hrs ANAND CÁRDENAS MD 02/19/22 1157: Assessment/Plan Assessment/Plan Assess & Plan/Chief Complaint Patient reports doing very well. She worked with physical therapy and actually states that she is doing better than her baseline. She is still reliant on the pure wick due to the Lasix. Her IV did come out. We discussed possible discharge home today but will wait 1 more day. I will continue her on all oral medications and monitor her response. If she does well will discharge home tomorrow. Supervisory-Addendum Brief Verification & Attestation Participated in pt care: history, MDM, physical Personally performed: exam, history, MDM, supervision of care Care discussed with: Medical Student Procedures: n/a Results interpretation: Verified all documentation Verification and Attestation of Medical Student E/M Service A medical student performed and documented this service in my presence. I reviewed and verified all information documented by the medical student and made modifications to such information, when appropriate. I personally performed the physical exam and medical decision making. Anand Cárdenas, Feb 19, 2022,11:56 GUERRERO NEWTON Feb 19, 2022 10:45 ANAND CÁRDENAS MD Feb 19, 2022 11:57
[2022-02-19 11:37] VITALS: BP 120/57
--- NOTE | 2022-02-19 12:45 | Progress Note - Cardiology ---
Cardiology SOAP Progress Note Subjective: Shortness of breath improving Gen weakness and malaise present No n/v/d No focal weakness Swelling improving Objective: I&O/Vital Signs 02/19/22 02/19/22 02/19/22 02/19/22 03:49 07:55 08:00 11:37 Temp 36.1 36.4 36.4 Pulse 114 111 107 Resp 16 18 18 B/P (MAP) 103/68 (80) 115/55 (75) 120/57 (78) Pulse Ox 95 94 95 O2 Delivery Room Air Room Air Room Air Room Air 02/19/22 00:00 Intake Total 1453 ml Output Total 2550 ml Balance -1097 ml Weight (Pounds): 230 Weight (Ounces): 0.0 Weight (Calculated Kilograms): 104.528203 Constitutional: AAO x 3, well-developed, well-nourished Respiratory: No accessory muscle use, No respiratory distress; chest expansion is symmetric, chest is bilaterally symmetric, other (diminished bases bilat) Cardiovascular: regular rate-rhythm; No JVD; S1 and S2, systolic murmur Gastrointestional: No tender; soft, round, audible bowel sounds Extremities: significant edema (bilat LE swelling 3+ (improving)) Neurologic/Psychiatric: grossly intact (moves all extremities) Skin: No rash on exposed areas, No ulcerations on exposed areas Results/Procedures: Labs Microbiology 02/15/22 Urine Culture - Final, Complete Escherichia coli Laboratory Tests 02/18/22 05:20 A/P: Assessment: Acute on chronic systolic CHF Relative hypotension that prevents optimization of heart failure meds NIC - Echocardiogram of 04-08-[address] Felton showed LVEF 10-15% with severe diffu se hypokinesis. LA and RA dilated. Mod to severe AoR. Mod MR. Mod to severe TR. PASP 50-55 mmHg - She reports she had a sleep study done that was "inconclusive" - she does not use CPAP or supplemental oxygen - managed by Dr. Kirk - AICD - implanted in September 2021 at [facility] (pt reports it to be a single chamber device) - followed by Dr. Crissy HARDIN - statin tx H/O DVT R leg - OAC with Eliquis - managed by Dr. Kirk H/O Breast Cancer - has had a mastectomy Plan: * Tachycardia after reduction in beta-dai. Increase carvedilol to 12.5 bid * Tolerating other regimen well * Monitor labs * I discussed her case in detail with CHAU Swartz MD [facility] Feb 19, 2022 12:45
[2022-02-19 15:21] VITALS: BP 109/57
[2022-02-19] MEDS: FUROSEMIDE 40 MG (LASIX) TAB PO SCH (17:16)
[2022-02-19 19:40] VITALS: BP 101/58
[2022-02-20] VITALS (7 sets, daily range): BP systolic 80–114; BP diastolic 50–66
[2022-02-20] MEDS: CATHETER FLUSH 10 ML SYR IVP SCH ×3 (05:28→20:51)
[2022-02-20] MEDS: FUROSEMIDE 40 MG (LASIX) TAB PO SCH ×2 (06:03→17:31)
[2022-02-20] MEDS: APIXABAN 5 MG (ELIQUIS) TABLET PO SCH ×2 (09:11→20:51)
[2022-02-20] MEDS: CYANOCOBALAMIN 1,000 MCG (VITAMIN B-12) TABLET PO SCH (09:11)
[2022-02-20] MEDS: LETROZOLE 2.5 MG (FEMARA) TAB PO SCH (09:11)
[2022-02-20] MEDS: AMIODARONE 200 MG (CORDARONE) TAB PO SCH (09:11)
[2022-02-20] MEDS: EMPAGLIFLOZIN 10 MG TABLET (JARDIANCE) PO SCH (09:11)
[2022-02-20] MEDS: KCL 20 MEQ TAB (K-DUR) PO SCH ×2 (09:12→20:51)
[2022-02-20] MEDS: VENlafaxine XR 75 MG (EFFEXOR XR) CAP PO SCH (09:12)
[2022-02-20] MEDS: SACUBITRIL/VALSARTAN 24/26 MG (ENTRESTO) TABLET PO SCH ×2 (10:30→20:51)
[2022-02-20] MEDS: SPIRONOLACTONE 25 MG (ALDACTONE) TAB PO SCH (10:30)
--- NOTE | 2022-02-20 13:36 | Progress Note ---
Subjective Date Seen by a Provider: Feb 20, 2022 Time Seen by a Provider: 10:00 Subjective/Events-last exam Patient was awake, sitting up in bed at the beginning of the interview. She reports feeling lightheaded this morning and has a headache. She says she moved from her chair to her bed by herself yesterday but she has not tried to get up to use the restroom. Patient has not been getting up out of the bed due to weakness in her legs. She continues to use the Purewick. Patient says the swelling in her arms is back to her baseline and that her legs have improved. Patient denies chest pain, SOB, and palpitations. Review of Systems General: No Chills, No Night Sweats; Fatigue, Appetite HEENT: Head Aches; No Visual Changes, No Sinus Congestion, No Sore Throat Pulmonary: No Dyspnea, No Cough Cardiovascular: Edema; No: Chest Pain, Palpitations Gastrointestinal: No: Nausea, Vomiting, Abdominal Pain, Diarrhea, Constipation Genitourinary: Other (Purewick being used) Neurological: Weakness, Incoordination; No: Numbness Objective Exam Last Set of Vital Signs Vital Signs Date Time Temp Pulse Resp B/P (MAP) Pulse Ox O2 Delivery O2 Flow Rate FiO2 02/20/22 11:09 36.3 117 18 81/57 (65) 96 Room Air 02/20/22 08:00 0.00 02/18/22 07:30 21 Capillary Refill : Less Than 3 Seconds I&O Intake and Output 02/20/22 00:00 Intake Total 1050 ml Output Total 3450 ml Balance -2400 ml Intake Oral 1050 ml Output Urine Total 3450 ml # Voids 1 General: Alert, Oriented X3, Cooperative HEENT: Mucous Memb Moist/[place] Neck: Supple, No JVD, No Thyromegaly Lungs: Clear to Auscultation, Normal Air Movement Heart: Regular Rate, Other (grade 3 systolic murmur) Abdomen: Soft, No Tenderness, No Hepatosplenomegaly Extremities: Normal Pulses (3+ bilateral radial pulse), Other (1+ pitting edema of bilateral lower extremities) Skin: No Rashes, No Breakdown Neuro: Normal Speech, Normal Tone Psych/Mental Status: Mental Status NL, Mood NL Other physical findings Urine being collected by the Purewick is clear with a light yellow color Results Lab Microbiology 02/15/22 Urine Culture - Final, Complete Escherichia coli Assessment/Plan Assessment/Plan Assess & Plan/Chief Complaint 1) Acute exacerbation of congestive heart failure - patient has received several; doses of IV furosemide 40mg and is still experiencing lower extremity edema, PO furosemide 80mg has been started - restart home heart failure medications irbesartan 300mg 1xD - carvedilol 50mg 1xD has been changed to 6.25mg BID by cardiology - cardiology has started Entresto 2tabs BID, Jardiance 10mg 1xD, and Spironolactone 25mg 1xD - patient has had tachycardia since arriving to the hospital which is most likely from her CHF, cardiology has been consulted - Purewick will be used along with an an adult pullup to prevent leakage from diuresis - the patient has had multiple conversations now as to the importance of taking her medications as prescribed - all of the patients medications will be changed to oral doses to prepare for her discharge tomorrow, BP will be monitored -Furosemide 80mg 1xD -all other medications are currently PO - patient continues to have hypotension even after holding home medications, cardiology is monitoring 2) Atrial fibrillation - patient is not in atrial fibrillation - telemetry has been ordered due to the tachycardia the patient has been having - restart home medication amniodarone 100mg 2xD - restart Eliquis 5mg 2xD 3) UTI - no history of recurrent UTIs or recent UTI treatment - patient has finished a 3 day course of Abx for her uncomplicated UTI 4) Weakness - PT and OT have been ordered - concern that the patient will have a fall if she returns home due to her weakness and hypotension 5) Hypoglycemeia - accuchek ordered 6) Hematochezia - history of hyperplastic polyps measuring over 10mm - fecal occult test ordered - patient is due for another colonoscopy and her primary will be contacted about this 7) Knee pain - Tylenol 650mg Q6hr 8) Headache - Tylenol is available 9) Vertigo - Restart home medication Meclizine 25mg Q6hrs 10) Depression - Venlafaxine 150mg 1xD 11) Breast cancer with full remission - Letrozole 2.5mg Clinical Quality Measures Admission Status Admission Dx 1) Acute exacerbation of congestive heart failure - patients records have been requested from Dr. Woodward's office - patient has received 2 doses of IV furosemide 40mg and is still experiencing lower extremity edema, another bolus of furosemide 40mg will be given - give PO potassium chloride 20mEq with the lazsix bolus to prevent hypokalemia - restart home heart failure medications carvedilol 50mg 1xD, irbesartan 300mg 1xD - patient has has tachycardia since arriving to the hospital, cardiology has been consulted - discussed removing the gomes catheter and placing a purewick 2) Atrial fibrillation - patient is not in atrial fibrillation - telemetry has been ordered due to the tachycardia the patient has been having - restart home medication amniodarone 2xD - restart Eliquis 5mg 2xD 3) UTI - no history of recurrent UTIs or recent UTI treatment - IV Rocephin 1g 1xD 4) Hypoglycemeia - 68 this morning before the patient had breakfast - accuchek ordered 5) Hematochezia - history of hyperplastic polyps measuring over 10mm - fecal occult test ordered - patient is due for another colonoscopy and her primary will be contacted about this 6) Knee pain - Tylenol 650mg Q6hr 7) Vertigo - Restart home medication Meclizine 25mg Q6hrs GUERRERO NEWTON Feb 20, 2022 13:36
--- NOTE | 2022-02-20 15:22 | Progress Note - Cardiology ---
Cardiology SOAP Progress Note Subjective: No cp or palp or syncope Shortness of breath improving Gen weakness and malaise are improving No n/v/d Objective: I&O/Vital Signs 02/20/22 02/20/22 02/20/22 02/20/22 03:57 07:21 08:00 11:09 Temp 36.6 35.8 36.3 Pulse 114 115 117 Resp 18 20 18 B/P (MAP) 101/66 (78) 80/50 (60) 81/57 (65) Pulse Ox 96 92 96 96 O2 Delivery Room Air Room Air Room Air Room Air O2 Flow Rate 0.00 02/20/22 00:00 Intake Total 1000 ml Output Total 2550 ml Balance -1550 ml Weight (Pounds): 230 Weight (Ounces): 0.0 Weight (Calculated Kilograms): 104.840191 Constitutional: AAO x 3, well-developed, well-nourished Respiratory: No accessory muscle use, No respiratory distress; chest expansion is symmetric, chest is bilaterally symmetric, other (diminished bases bilat) Cardiovascular: regular rate-rhythm; No JVD; S1 and S2, systolic murmur Gastrointestional: No tender; soft, round, audible bowel sounds Extremities: significant edema (bilat LE swelling 3+ (improving)) Neurologic/Psychiatric: grossly intact (moves all extremities) Skin: No rash on exposed areas, No ulcerations on exposed areas Results/Procedures: Labs Microbiology 02/15/22 Urine Culture - Final, Complete Escherichia coli A/P: Assessment: Continuing tachycardia at the rate of appox 115 bpm: ?pacemaker-mediated Acute on chronic systolic CHF Relative hypotension that prevents optimization of heart failure meds NICM - Echocardiogram of 04-08-[address] Felton showed LVEF 10-15% with severe diffuse hypokinesis. LA and RA dilated. Mod to severe AoR. Mod MR. Mod to severe TR. PASP 50-55 mmHg - She reports she had a sleep study done that was "inconclusive" - she does not use CPAP or supplemental oxygen - managed by Dr. Kirk - AICD - implanted in September 2021 at [facility] (pt reports it to be a single chamber device) - followed by Dr. Woodward HLD - statin tx H/O DVT R leg - OAC with Eliquis - managed by Dr. Kirk H/O Breast Cancer - has had a mastectomy Plan: * To eval tachycardia: repeat ECG & labs in am and have pacemaker interrogated * Increase beta-adi if bp tolerates * Tolerating other regimen well * Monitor labs CHAU POPE MD [facility] Feb 20, 2022 15:22
[2022-02-21] VITALS (7 sets, daily range): BP systolic 90–157; BP diastolic 50–72
[2022-02-21 05:56] LABS: BASOPHILS % (AUTO) 1 % (0-10); EOSINOPHILS # (AUTO) 0.2 10^3/uL (0.0-0.3); EOSINOPHILS % (AUTO) 2 % (0-10); HEMATOCRIT 42 % (35-52); HEMOGLOBIN 13.5 g/dL (11.5-16.0); LYMPHOCYTES # (AUTO) 1.7 10^3/uL (1.0-4.0); LYMPHOCYTES % (AUTO) 21 % (12-44); MEAN CORPUSCULAR HEMOGLOBIN 27 pg (25-34); MEAN CORPUSCULAR HGB CONC 32 g/dL (32-36); MEAN CORPUSCULAR VOLUME 83 fL (80-99); MONOCYTES % (AUTO) 13 % (0-12); NEUTROPHILS # (AUTO) 5.2 10^3/uL (1.8-7.8); NEUTROPHILS % (AUTO) 64 % (42-75); PLATELET COUNT 213 10^3/uL (130-400); WHITE BLOOD COUNT 8.1 10^3/uL (4.3-11.0)
[2022-02-21] MEDS: FUROSEMIDE 40 MG (LASIX) TAB PO SCH (05:56)
[2022-02-21] MEDS: CATHETER FLUSH 10 ML SYR IVP SCH ×2 (05:56→15:12)
[2022-02-21 06:01] LABS: ALBUMIN 3.3 GM/DL (3.2-4.5)
[2022-02-21 06:02] LABS: POTASSIUM 4.2 MMOL/L (3.6-5.0)
[2022-02-21 06:03] LABS: CALCIUM 10.4 MG/DL (8.5-10.1)
[2022-02-21 06:04] LABS: TOTAL PROTEIN 6.3 GM/DL (6.4-8.2)
[2022-02-21 06:06] LABS: BILIRUBIN,TOTAL 2.3 MG/DL (0.1-1.0)
[2022-02-21 06:08] LABS: CREATININE SERUM 1.14 MG/DL (0.60-1.30)
[2022-02-21 06:11] LABS: MAGNESIUM 1.9 MG/DL (1.6-2.4)
[2022-02-21] MEDS: SACUBITRIL/VALSARTAN 24/26 MG (ENTRESTO) TABLET PO SCH (08:25)
[2022-02-21] MEDS: LETROZOLE 2.5 MG (FEMARA) TAB PO SCH (08:25)
[2022-02-21] MEDS: CYANOCOBALAMIN 1,000 MCG (VITAMIN B-12) TABLET PO SCH (08:25)
[2022-02-21] MEDS: APIXABAN 5 MG (ELIQUIS) TABLET PO SCH (08:26)
[2022-02-21] MEDS: EMPAGLIFLOZIN 10 MG TABLET (JARDIANCE) PO SCH (08:26)
[2022-02-21] MEDS: VENlafaxine XR 75 MG (EFFEXOR XR) CAP PO SCH (08:26)
[2022-02-21] MEDS: KCL 20 MEQ TAB (K-DUR) PO SCH (08:26)
[2022-02-21] MEDS: SPIRONOLACTONE 25 MG (ALDACTONE) TAB PO SCH (08:26)
[2022-02-21] MEDS: AMIODARONE 200 MG (CORDARONE) TAB PO SCH (08:27)
--- NOTE | 2022-02-21 09:27 | Occupational Ther Daily Note ---
OT Current Status-Daily Note Subjective Pt laying supine in bed with light out. Pt agrees to therapy. Pt c/o no pain. Mental Status/Objective Patient Orientation: Person, Place, Time, Situation Attachments: Other-See Comments ([facility]) ADL-Treatment Pt required mod A to transfer from sitting EOB to standing. She ambulated to bathroom using FWW with SBA. Pt completed toileting task independently. Pt required mod A to stand from toilet. She ambulated from toilet to sink using FWW with SBA. Pt completed oral hygiene independently standing at the sink with SBA. She ambulated from sink to elevated recliner with SBA. Pt independently donned socks using the figure 4 method for L leg and bending at the waist in recliner for the R leg. Call light and phone within reach. All needs met in room. Therapy Code Descriptions/Definitions Functional [place] Measure: 0=Not Assessed/NA 4=Minimal Assistance 1=Total Assistance 5=Supervision or Setup 2=Maximal Assistance 6=Modified [place] 3=Moderate Assistance 7=Complete IndependenceSCALE: Activities may be completed with or without assistive devices. 6-Oxcpdwrsyi-hpbbknb completes the activity by him/herself with no assistance from a helper. 5-Set-up or Clean-up Assistance-helper sets up or cleans up; patient completes activity. [place] assists only prior to or following the activity. 4-Supervision or Touching Assistance-helper provides verbal cues and/or touching/steadying and/or contact guard assistance as patient completes activity. Assistance may be provided throughout the activity or intermittently. 3-Partial/Moderate Assistance-helper does LESS THAN HALF the effort. [place] lifts, holds or supports trunk or limbs, but provides less than half the effort. 2-Substantial/Maximal Assistance-helper does MORE THAN HALF the effort. [place] lifts or holds trunk or limbs and provides more than half the effort. 0-Kdsagjtiy-ywwsvj does ALL the effort. Patient does none of the effort to com plete the activity. Or, the assistance of 2 or more helpers is required for the patient to complete the activity. If activity was not attempted, code reason: 7-Patient Refused. 9-Not Applicable-not attempted and the patient did not perform the activity before the current illness, exacerbation or injury. 10-Not Attempted due to Environmental Limitations-(lack of equipment, weather restraints, etc.). 88-Not Attempted due to Medical Conditions or Safety Concerns. Oral Hygiene (QC): 6 On/Off Footwear: 6 Toileting Hygiene (QC): 6 Toilet Transfer (QC): 2 (mod A) OT [employer] Custodian Goals Mcfp Goals Time Frame: Mar 02, 2022 Oral Hygiene (QC): 5 Toileting Hygiene (QC): 4 Shower/Bathe Self (QC): 4 Upper Body Dressing (QC): 4 Lower Body Dressing (QC): 4 On/Off Footwear (QC): 4 Additional Goals: 1-Demonstrate ADL Tasks, 2-Verbalize Understanding, 3-ImproveStrength/Jamir 1=Demonstrate adherence to instructed precautions during ADL tasks. 2=Patient will verbalize/demonstrate understanding of assistive devices/modifications for ADL. 3=Patient will improve strength/tolerance for activity to enable patient to perform ADL's. OT Education/Plan Problem List/Assessment Assessment: Decreased Activ Tolerance Discharge Recommendations Plan/Recommendations: Continue POC Treatment Plan/Plan of Care Patient would benefit from OT for education, treatment and training to promote independence in ADL's, mobility, safety and/or upper extremity function for ADL's. Plan of Care: ADL Retraining, Functional Mobility, Group Exercise/Act as Ind, UE Funct Exercise/Act Treatment Duration: Mar 02, 2022 Frequency: 3 times per week (3-5 x/week) Estimated Hrs Per Day: .25 hour per day Agreement: Yes Rehab Potential: Fair Time/GCodes Start Time: 08:35 Stop Time: 09:05 Total Time Billed (hr/min): 30 Billed Treatment Time 1 visit ADL 2 (30 min) DEVORAH ELKINS Feb 21, 2022 09:27
--- NOTE | 2022-02-21 10:41 | Progress Note - Cardiology ---
Cardiology SOAP Progress Note Subjective: Sitting up in recliner at the bedside States she feels good this morning No c/o CP, SOB, palpitations, syncope or near syncope LE swelling has improved Objective: I&O/Vital Signs 02/21/22 02/21/22 02/21/22 02/21/22 00:00 03:24 04:00 07:59 Temp 36.1 36.0 36.5 Pulse 116 116 116 116 Resp 16 16 18 B/P (MAP) 101/52 (68) 109/56 (73) 97/53 (68) Pulse Ox 97 96 97 96 O2 Delivery Room Air Room Air Room Air FiO2 21 02/21/22 02/21/22 08:00 09:13 Pulse 119 Resp 18 B/P (MAP) 105/65 (78) O2 Delivery Room Air 02/21/22 00:00 Intake Total 1170 ml Output Total 1300 ml Balance -130 ml Weight (Pounds): 230 Weight (Ounces): 0.0 Weight (Calculated Kilograms): 104.893059 Constitutional: AAO x 3, well-developed, well-nourished Respiratory: chest expansion is symmetric, chest is bilaterally symmetric, other Cardiovascular: regular rate-rhythm, S1 and S2, systolic murmur Gastrointestional: soft, round, audible bowel sounds Extremities: significant edema Neurologic/Psychiatric: grossly intact Skin: No rash on exposed areas, No ulcerations on exposed areas Results/Procedures: Labs Laboratory Tests 02/21/22 05:41: White Blood Count 8.1, Red Blood Count 5.01, Hemoglobin 13.5, Hematocrit 42, Mean Corpuscular Volume 83, Mean Corpuscular Hemoglobin 27, Mean Corpuscular Hemoglobin Concent 32, Red Cell Distribution Width 17.3H, Platelet Count 213, Mean Platelet Volume 11.0, Immature Granulocyte % (Auto) 0, Neutrophils (%) (Auto) 64, Lymphocytes (%) (Auto) 21, Monocytes (%) (Auto) 13H, Eosinophils (%) (Auto) 2, Basophils (%) (Auto) 1, Neutrophils # (Auto) 5.2, Lymphocytes # (Auto) 1.7, Monocytes # (Auto) 1.0, Eosinophils # (Auto) 0.2, Basophils # (Auto) 0.0, Immature Granulocyte # (Auto) 0.0, Sodium Level 140, Potassium Level 4.2, Chloride Level 100, Carbon Dioxide Level 27, Anion Gap 13, Blood Urea Nitrogen 29H, Creatinine 1.14, Estimat Glomerular Filtration Rate 52, BUN/Creatinine Ratio 25, Glucose Level 92, Calcium Level 10.4H, Corrected Calcium 11.0H, Mag nesium Level 1.9, Total Bilirubin 2.3H, Aspartate Amino Transf (AST/SGOT) 20, A lanine Aminotransferase (ALT/SGPT) 13, Alkaline Phosphatase 67, Total Protein 6.3L, Albumin 3.3, Thyroid Stimulating Hormone (TSH) 5.70H Microbiology 02/15/22 Urine Culture - Final, Complete Escherichia coli Laboratory Tests 02/21/22 05:41 Laboratory Tests 02/21/22 05:41 A/P: Assessment: Continuing tachycardia at the rate of appox 115 bpm: - device interrogation done today - Mehrdad Farrar, [employer] Rep called and reports she is having ST - states she had an episode of a-fib in Dec 2021 PAF (per device interrogation had episode of a-fib in December 2021) - OAC with Eliquis 5mg BID Acute on chronic systolic CHF Relative hypotension that prevents optimization of heart failure meds NICM - Echocardiogram of 04-08-[address] Felton showed LVEF 10-15% with severe diffuse hypokinesis. LA and RA dilated. Mod to severe AoR. Mod MR. Mod to severe TR. PASP 50-55 mmHg - She reports she had a sleep study done that was "inconclusive" - she does not use CPAP or supplemental oxygen - managed by Dr. Kirk - AICD - implanted in September 2021 at [facility] (pt reports it to be a single chamber device) - followed by Dr. Crissy HARDIN - statin tx H/O DVT R leg - OAC with Eliquis - managed by Dr. Kirk H/O Breast Cancer - has had a mastectomy Plan: * BP unable to tolerate increased dose of BB - will reduce it back to 12.5mg BID and reduce Entresto to 1 tabBID * Device interrogation done to day ([employer] single lead) per [employer] rep the device shows she is currently showing ST * Change diuretics to oral * Tolerating other regimen well * Monitor labs JOSIE WINKLER Feb 21, 2022 10:41
--- NOTE | 2022-02-21 13:38 | Physical Therapy Daily Note ---
PT Daily Note-Current Subjective Pt sitting in recliner with sister present. Pt agrees with encouragement to stand for walk. BP monitored during tx due to c/o dizziness & nausea. Pain Location: No Pain Reported Section J - Health Conditions 1. Rarely or not at all 2. Occasionally 3. Frequently 4. Almost constantly 8. Unable to answer Pain Effect on Sleep: 1 Pain Interference with Therapy: 1 Pain Interference w/Day-to-Day: 1 Mental Status Patient Orientation: Person, Place, Situation Attachments: IV Transfers SCALE: Activities may be completed with or without assistive devices. 5-Okwzjarvsq-roxmwue completes the activity by him/herself with no assistance from a helper. 5-Set-up or Clean-up Assistance-helper sets up or cleans up; patient completes activity. [place] assists only prior to or following the activity. 4-Supervision or Touching Assistance-helper provides verbal cues and/or touching/steadying and/or contact guard assistance as patient completes activity. Assistance may be provided throughout the activity or intermittently. 3-Partial/Moderate Assistance-helper does LESS THAN HALF the effort. [place] lifts, holds or supports trunk or limbs, but provides less than half the effort. 2-Substantial/Maximal Assistance-helper does MORE THAN HALF the effort. [place] lifts or holds trunk or limbs and provides more than half the effort. 2-Alnpnrsrl-gaypoa does ALL the effort. Patient does none of the effort to complete the activity. Or, the assistance of 2 or more helpers is required for the patient to complete the activity. If activity was not attempted, code reason: 7-Patient Refused. 9-Not Applicable-not attempted and the patient did not perform the activity before the current illness, exacerbation or injury. 10-Not Attempted due to Environmental Limitations-(lack of equipment, weather restraints, etc.). 88-Not Attempted due to Medical Conditions or Safety Concerns. Sit to Stand (QC): 4 Weight Bearing Right Lower Extremity: Right Weight Bearing/Tolerated Left Lower Extremity: Left Weight Bearing/Tolerated Gait Training Does the Patient Walk?: Yes Distance: 50' Walk 10 feet (QC): 5 Walk 50 ft with 2 Turns(QC): 5 Gait Assistive Device: FWW Treatments BP taking in sitting, 103/52, HR 119. TF to standing and BP taken again, 111/53, HR 120. Pt amb. in hallway before returning to room to rest in recliner and eat lunch. BP is 171/75 & HR 119. Nurse is advised. All needs met, call light in hand. Assessment Current Status: Fair Progress Unmotivated at times and needs encouragement to push self. BP is monitored due to c/o dizziness and nausea. PT Bog Worker Goals Care Home Goals PT Bog Worker Goals Time Frame: Feb 23, 2022 Roll Left & Right (QC): 4 (SBA) Sit to Lying (QC): 4 (SBA) Lying-Sitting on Side/Bed(QC): 4 (SBA) Sit to Stand (QC): 4 (SBA) Walk 10 feet (QC): 4 (SBA) Walk 50ft with 2 Turns (QC): 4 (SBA) PT Plan Problem List Problem List: Activity Tolerance, Functional Strength, Gait Treatment/Plan Treatment Plan: Continue Plan of Care Treatment Plan: Bed Mobility, Education, Functional Activity Jamir, Functional Strength, Gait, Safety, Therapeutic Exercise, Transfers Treatment Duration: Feb 23, 2022 Frequency: 6 times per week Estimated Hrs Per Day: .25 hour per day Patient and/or Family Agrees t: Yes Safety Risks/Education Patient Education: Gait Training, Transfer Techniques, Correct Positioning Teaching Recipient: Patient, Family Teaching Methods: Discussion Response to Teaching: Verbalize Understanding Time/GCodes Time In: 1300 Time Out: 1326 Total Billed Treatment Time: 26 Total Billed Treatment 1, FA (10m) & GT (16m) NEENA PENN PHARMACY STUDENT Feb 21, 2022 13:38
--- NOTE | 2022-02-21 14:36 | Progress Note - Cardiology ---
Cardiology SOAP Progress Note Subjective: No cp or palp or syncope Shortness of breath much improved Gen malaise much improved Leg swelling much improved No focal weakness. Does note some postural dizziness No n/v/d Objective: I&O/Vital Signs 02/21/22 02/21/22 02/21/22 02/21/22 03:24 04:00 07:59 08:00 Temp 36.0 36.5 Pulse 116 116 116 Resp 16 18 B/P (MAP) 109/56 (73) 97/53 (68) Pulse Ox 96 97 96 O2 Delivery Room Air Room Air Room Air FiO2 21 02/21/22 02/21/22 09:13 12:34 Temp 36.4 Pulse 119 119 Resp 18 18 B/P (MAP) 105/65 (78) 96/54 (68) Pulse Ox 94 O2 Delivery Room Air 02/21/22 00:00 Intake Total 1170 ml Output Total 1300 ml Balance -130 ml Weight (Pounds): 230 Weight (Ounces): 0.0 Weight (Calculated Kilograms): 104.917820 Constitutional: AAO x 3, well-developed, well-nourished Respiratory: chest expansion is symmetric, chest is bilaterally symmetric, other Cardiovascular: regular rate-rhythm, S1 and S2, systolic murmur Gastrointestional: soft, round, audible bowel sounds Extremities: significant edema Neurologic/Psychiatric: grossly intact Skin: No rash on exposed areas, No ulcerations on exposed areas Results/Procedures: Labs Laboratory Tests 02/21/22 05:41: White Blood Count 8.1, Red Blood Count 5.01, Hemoglobin 13.5, Hematocrit 42, Mean Corpuscular Volume 83, Mean Corpuscular Hemoglobin 27, Mean Corpuscular Hemoglobin Concent 32, Red Cell Distribution Width 17.3H, Platelet Count 213, Mean Platelet Volume 11.0, Immature Granulocyte % (Auto) 0, Neutrophils (%) (Auto) 64, Lymphocytes (%) (Auto) 21, Monocytes (%) (Auto) 13H, Eosinophils (%) (Auto) 2, Basophils (%) (Auto) 1, Neutrophils # (Auto) 5.2, Lymphocytes # (Auto) 1.7, Monocytes # (Auto) 1.0, Eosinophils # (Auto) 0.2, Basophils # (Auto) 0.0, Immature Granulocyte # (Auto) 0.0, Sodium Level 140, Potassium Level 4.2, Chloride Level 100, Carbon Dioxide Level 27, Anion Gap 13, Blood Urea Nitrogen 29H, Creatinine 1.14, Estimat Glomerular Filtration Rate 52, BUN/Creatinine Ratio 25, Glucose Level 92, Calcium Level 10.4H, Corrected Calcium 11.0H, Magnesium Level 1.9, Total Bilirubin 2.3H, Aspartate Amino Transf (AST/SGOT) 20, Alanine Aminotransferase (ALT/SGPT) 13, Alkaline Phosphatase 67, Total Protein 6.3L, Albumin 3.3, Thyroid Stimulating Hormone (TSH) 5.70H Microbiology 02/15/22 Urine Culture - Final, Complete Escherichia coli Laboratory Tests 02/21/22 05:41 A/P: Assessment: Continuing tachycardia at the rate of appox 115 bpm: - device interrogation done today - device functioning normally - rhythm appears to be chronic sinus tachycardia ST PAF (per device interrogation had episode of a-fib in December 2021) - OAC with Eliquis 5mg BID Acute on chronic systolic CHF Relative hypotension that prevents optimization of heart failure meds NICM - Echocardiogram of 04-08-[address] Felton showed LVEF 10-15% with severe diffuse hypokinesis. LA and RA dilated. Mod to severe AoR. Mod MR. Mod to severe TR. PASP 50-55 mmHg - She reports she had a sleep study done that was "inconclusive" - she does not use CPAP or supplemental oxygen - managed by Dr. Kirk - AICD - implanted in September 2021 at [facility] (pt reports it to be a single chamber device) - followed by Dr. Crissy HARDIN - statin tx H/O DVT R leg - OAC with Eliquis - managed by Dr. Kirk H/O Breast Cancer - has had a mastectomy Plan: * BP unable to tolerate increased dose of BB - will reduce it back to 12.5mg BID and reduce Entresto to 1 tabBID * Device interrogation done to day ([employer] single lead) per [employer] rep the device shows she is currently showing ST * Change diuretics to oral * Tolerating other regimen well * Monitor labs * Ok for d/c from cardiac standpoint with f/u with her rnfa CHAU Mckoy MD FACP [facility] Feb 21, 2022 14:36
[2022-02-21] MEDS: ACETAMINOPHEN 325 MG TABLET PO PRN (14:57)
[2022-02-21] MEDS ORDERED: SACU1TAB2 PO (15:14)
[2022-02-21] MEDS ORDERED: SPIR25TA5 PO (15:14)
[2022-02-21] MEDS ORDERED: EMPA10TA PO (15:14)
[2022-02-21] MEDS ORDERED: CARV25TA PO (15:14)
[2022-02-21] MEDS ORDERED: FURO40TA4 PO (15:17)
[2022-02-21] MEDS ORDERED: SACUBITRIL/VALSARTAN 24/26 MG (ENTRESTO) TABLET PO SCH (21:00)
== END 2022-02-21 16:20 | disposition home or self-care (01) | DRG 291 ==
LOC: EDUNIT# 17:02 → ER 17:07 → 4TH 20:07
PROVIDERS: ADMIT Internal Medicine; ATTEND Internal Medicine
DX: I11.0 Hypertensive heart disease with heart failure (principal); I50.23 Acute on chronic systolic (congestive) heart failure; N39.0 Urinary tract infection, site not specified; K92.1 Melena; I25.5 Ischemic cardiomyopathy; E78.5 Hyperlipidemia, unspecified; Z86.718 Personal history of other venous thrombosis and embolism; Z79.01 Long term (current) use of anticoagulants; Z85.3 Personal history of malignant neoplasm of breast; Z90.10 Acquired absence of unspecified breast and nipple; Z87.891 Personal history of nicotine dependence; Z60.2 Problems related to living alone; I95.9 Hypotension, unspecified; I48.91 Unspecified atrial fibrillation; R53.1 Weakness; M25.569 Pain in unspecified knee; R51.9 Headache, unspecified; R42 Dizziness and giddiness; F32.A Depression, unspecified; E16.2 Hypoglycemia, unspecified
CPT/HCPCS: 36415; 51702; 71045; 73562; 80048; 80053; 81000; 83735; 83880; 84443; 85025; 87077; 87088; 87186; 90662; 93005; 94760; 96374

== ENCOUNTER 2022-05-17 07:49 | Inpatient (IN) | payer MEDICARE ==
[~2022-05-17] VITALS: Ht 172 cm; Wt 112.7 kg
[~2022-05-17 07:49] MED LIST changes: +AMIO200T65 PO; +APIX5TAB PO; +CYAN-41 PO; +EMPA10TA PO; +FISH1CAP15 PO; +FURO40TA4 PO; +LETR2.5T6 PO; +MECL-149 PO; +POTA99TA18 PO; +SACU1TAB2 PO; +SACU1TAB7 PO; +SPIR25TA5 PO; +VENL150C98 PO
[2022-05-17] MEDS ORDERED: NS IV 500 ML 500 ML IV ONE (08:00)
[2022-05-17] MEDS ORDERED: NS (IVPB) 250 ML IV ONE ×2 (08:00→11:30)
[2022-05-17] MEDS ORDERED: ONDANSETRON 4 MG/2 ML (SDV) Z0FRAN IVP ONE (08:00)
--- NOTE | 2022-05-17 08:11 | ED Cardiac General ---
History of Present Illness General Stated Complaint: NAUSEA | VOMITING | WEAKNESS Source: patient, family, EMS Exam Limitations: no limitations History of Present Illness Date Seen by Provider: May 17, 2022 Time Seen by Provider: 07:51 Initial Comments 71-year-old female with past medical history of paroxysmal A. fib/flutter on Eliquis, HFrEF (04/08/20 echo with LVEF 10-15%, severe diffuse hypokinesis), and HLD coming in via EMS from home due to 1 day of nonbloody nonbilious vomiting and feeling generally weak. She has not had any fever that she knows of. Has not taken any of her medications including amiodarone, Eliquis, or anything else since Monday night because of the vomiting. EMS reports she was in A. fib with RVR in the 130s with normal blood pressure. She denies any focal weakness, numbness, chest pain, new shortness of breath, abdominal pain, diarrhea, rash, or any other concerns. Allergies and Home Medications Allergies Coded Allergies: codeine (Verified Allergy, Mild, HALLUCINATIONS, 01/18/17) Patient Home Medication List Home Medication List Reviewed: Yes Amiodarone HCl (Amiodarone HCl) 200 Mg Tablet, 100 MG PO DAILY, (Reported) Entered as Reported by: KIMBERLY BURRIS on 02/16/22 1223 Apixaban (Eliquis) 5 Mg Tablet, 5 MG PO BID, (Reported) Entered as Reported by: KIMBERLY BURRIS on 02/16/22 1223 Carvedilol (Carvedilol) 25 Mg Tablet, 12.5 MG PO BID Prescribed by: OSMANY NAILS on 02/21/22 151 Cyanocobalamin (Vitamin B-12) (Vitamin B-12) 1,000 Mcg Tablet, 1,000 MCG PO DAILY, (Reported) Entered as Reported by: KIMBERLY BURRIS on 02/16/22 1223 Empagliflozin (Jardiance) 10 Mg Tablet, 10 MG PO DAILY Prescribed by: OSMANY NAILS on 02/21/22 1514 Fish Oil/Dha/Epa (Fish Oil 1,200 mg Fish Oil) 1,200 Mg-144 Mg-216 Mg Capsule, 1 EACH PO DAILY, (Reported) Entered as Reported by: KIMBERLY BURRIS on 02/16/22 1223 Furosemide (Furosemide) 40 Mg Tablet, 80 MG PO DAILY Prescribed by: OSMANY NAILS on 02/21/22 1517 Letrozole (Letrozole) 2.5 Mg Tablet, 2.5 MG PO DAILY, (Reported) Entered as Reported by: KIMBERLY BURRIS on 02/16/22 1223 Meclizine HCl (Meclizine HCl) 25 Mg Tablet, 25 MG PO DAILY, (Reported) Entered as Reported by: KIMBERLY BURRIS on 02/16/22 1223 Potassium Gluconate (Potassium Gluconate) 595 Mg (99 Mg) Tablet.er, 99 MG PO DAILY PRN for MUSCLE CRAMPS, (Reported) Entered as Reported by: KIMBERLY BURRIS on 02/16/22 1223 Sacubitril/Valsartan (Entresto 24 mg-26 mg Tablet) 24 Mg-26 Mg Tablet, 1 TAB PO BID Prescribed by: OSMANY NAILS on 02/21/22 1514 Spironolactone (Spironolactone) 25 Mg Tablet, 12.5 MG PO DAILY Prescribed by: OSMANY NAILS on 02/21/22 1514 Venlafaxine HCl (Venlafaxine HCl ER) 150 Mg Cap.er.24h, 150 MG PO DAILY, (Reported) Entered as Reported by: KIMBERLY BURRIS on 02/16/22 1223 Review of Systems Review of Systems Constitutional: No fever EENTM: No Symptoms Reported Respiratory: No Symptoms Reported Cardiovascular: See HPI Gastrointestinal: See HPI Genitourinary: No Symptoms Reported Musculoskeletal: no symptoms reported Skin: no symptoms reported Psychiatric/Neurological: No Symptoms Reported Endocrine: No Symptoms Reported Hematologic/Lymphatic: No Symptoms Reported All Other Systems Reviewed Negative Unless Noted: Yes Past Mcwyknz-Fzmpob-Ueodcy Hx Patient Social History Tobacco Use?: No Immunizations Up To Date First/Initial COVID19 Vaccinat: 2020 Second COVID19 Vaccination [place]: 2020 Seasonal Allergies Seasonal Allergies: Yes Past Medical History Surgery/Hospitalization HX: PMH;CHF AND PACEMAKER/DEF. SURGERY; LUMPECTOMY ON LEFT SIDE, RT SIDE MASTECTOMY, AND GALLBLADDER. Surgeries: Yes (LUMPECTOMY-LEFT BREAST) Breast, Gallbladder, Tubal Ligation Respiratory: No Cardiac: Yes (CHF; NON-ISCHEMIC CARDIOMYOPATHY. 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 Sexually Transmitted Disease: No HIV/AIDS: No Genitourinary: No Gastrointestinal: No Polyps Musculoskeletal: Yes Arthritis Endocrine: No HEENT: No Loss of Vision: Bilateral Hearing Impairment: Denies Cancer: Yes (LEFT LUMPECTOMY, CHEMO AND RADIATION--DX IN 1980) Breast Did You Recieve Any Treatments: Yes What Type of Treatment Did You: Chemotherapy, Radiation, Surgical Intervention Psychosocial: No Integumentary: No Blood Disorders: No Adverse Reaction/Blood Tranf: No (N/A) Family Medical History Cancer, GI Disease Physical Exam Vital Signs Vital Signs - First Documented 05/17/22 07:50 Temp 35.2 Pulse 122 Resp 20 B/P (MAP) 119/57 (77) Pulse Ox 99 O2 Delivery Room Air Capillary Refill : Height, Weight, BMI Height: 5'8.00" Weight: 230lbs. 0.0oz. [id number]; 35.08 BMI Method:Stated General Appearance: No Apparent Distress, WD/WN HEENT: PERRL/EOMI, Normal ENT Inspection, Pharynx Normal Neck: Full Range of Motion, Normal Inspection, Non Tender, Supple Respiratory: Chest Non Tender, Lungs Clear, Normal Breath Sounds, No Accessory Muscle Use, No Respiratory Distress Cardiovascular: Normal Peripheral Pulses, Irregularly Irregular, Tachycardia Gastrointestinal: Normal Bowel Sounds, Non Tender, Soft; No Distended, No Guarding Extremity: Normal Capillary Refill, Normal Inspection, Normal Range of Motion, Non Tender, No Calf Tenderness, No Pedal Edema Neurologic/Psychiatric: Alert, Oriented x3, No Motor/Sensory Deficits, Normal Mood/Affect Skin: Normal Color, Warm/Dry Lymphatic: No Adenopathy Progress/Results/Core Measures Results/Orders Lab Results Laboratory Tests Test 05/17/22 08:05 05/17/22 08:21 Range/Units White Blood Count 12.2 H 4.3-11.0 10^3/uL Red Blood Count 4.94 3.80-5.11 10^6/uL Hemoglobin 13.9 11.5-16.0 g/dL Hematocrit 44 35-52 % Mean Corpuscular Volume 89 80-99 fL Mean Corpuscular Hemoglobin 28 25-34 pg Mean Corpuscular Hemoglobin Concent 32 32-36 g/dL Red Cell Distribution Width 18.6 H 10.0-14.5 % Platelet Count 255 130-400 10^3/uL Mean Platelet Volume 11.2 9.0-12.2 fL Immature Granulocyte % (Auto) 1 % Neutrophils (%) (Auto) 66 42-75 % Lymphocytes (%) (Auto) 20 12-44 % Monocytes (%) (Auto) 11 0-12 % Eosinophils (%) (Auto) 1 0-10 % Basophils (%) (Auto) 1 0-10 % Neutrophils # (Auto) 8.0 H 1.8-7.8 10^3/uL Lymphocytes # (Auto) 2.5 1.0-4.0 10^3/uL Monocytes # (Auto) 1.4 H 0.0-1.0 10^3/uL Eosinophils # (Auto) 0.1 0.0-0.3 10^3/uL Basophils # (Auto) 0.1 0.0-0.1 10^3/uL Immature Granulocyte # (Auto) 0.1 0.0-0.1 10^3/uL Prothrombin Time 19.2 H 12.2-14.7 SEC INR Comment 1.6 H 0.8-1.4 Activated Partial Thromboplast Time 30 24-35 SEC Sodium Level 141 135-145 MMOL/L Potassium Level 5.3 H 3.6-5.0 MMOL/L Chloride Level 108 H 98-107 MMOL/L Carbon Dioxide Level 12 L 21-32 MMOL/L Anion Gap 21 H 5-14 MMOL/L Blood Urea Nitrogen 31 H 7-18 MG/DL Creatinine 1.46 H 0.60-1.30 MG/DL Estimat Glomerular Filtration Rate 39 BUN/Creatinine Ratio 21 Glucose Level 76 70-105 MG/DL Calcium Level 11.0 H 8.5-10.1 MG/DL Corrected Calcium 10.9 H 8.5-10.1 MG/DL Magnesium Level 2.0 1.6-2.4 MG/DL Total Bilirubin 6.3 H 0.1-1.0 MG/DL Aspartate Amino Transf (AST/SGOT) 60 H 5-34 U/L Alanine Aminotransferase (ALT/SGPT) 52 0-55 U/L Alkaline Phosphatase 101 40-136 U/L Troponin I 0.066 H <0.028 NG/ML B-Type Natriuretic Peptide 2521.2 H <100.0 PG/ML Total Protein 7.0 6.4-8.2 GM/DL Albumin 4.1 3.2-4.5 GM/DL Lipase 28 8-78 U/L Influenza Type A (RT-PCR) Not Detected Not Detecte Influenza Type B (RT-PCR) Not Detected Not Detecte SARS-CoV-2 RNA (RT-PCR) Not Detected Not Detecte My Orders Orders - MICKEY DUMONT MD Troponin I Wendy (05/17/22 07:57) Chest 1 View, Ap/Pa Only (05/17/22 07:57) Ekg Tracing (05/17/22 07:57) Ed Iv/Invasive Line Start (05/17/22 07:57) Monitor-Rhythm Ecg Trace Only (05/17/22 07:57) Bnp [place] (05/17/22 07:57) Cbc With Automated Diff (05/17/22 07:57) Comprehensive Metabolic Panel (05/17/22 07:57) Lipase (05/17/22 07:57) Magnesium (05/17/22 07:57) Protime With Inr (05/17/22 07:57) Partial Thromboplastin Time (05/17/22 07:57) Influenza A And B By Pcr (05/17/22 07:57) Covid 19 Inhouse Test (05/17/22 07:57) Ondansetron Injection (Zofran Injectio (05/17/22 08:00) Ns (Ivpb) (Sodium Chloride 0.9%) (05/17/22 08:00) Apixaban Tablet (Eliquis Tablet) (05/17/22 08:45) Amiodarone For Bolus (Cordarone Bolus) (05/17/22 08:45) Amiodarone Injection (Cordarone Injectio (05/17/22 08:36) Aspirin Chewable Tablet (Baby Aspirin Ch (05/17/22 09:00) Ed Admission (Communication) (05/17/22 09:09) Medications Given in ED Current Medications Medications Dose Ordered Sig/Merle Route Start Time Stop Time Status Last Admin Dose Admin Amiodarone HCl 150 mg/Sodium Chloride 103 ml @ 600 mls/hr ONCE ONCE IV 05/17/22 08:45 05/17/22 08:55 DC 05/17/22 08:56 600 MLS/HR Apixaban 5 mg ONCE ONCE PO 05/17/22 08:45 05/17/22 08:46 DC 05/17/22 08:56 5 MG Ondansetron HCl 4 mg ONCE ONCE IVP 05/17/22 08:00 05/17/22 08:01 DC 05/17/22 08:15 4 MG Sodium Chloride 250 ml @ 0 mls/hr Q0M ONCE IV 05/17/22 08:00 05/17/22 08:01 DC 05/17/22 08:15 250 MLS/HR Vital Signs/I&O 05/17/22 05/17/22 07:50 08:56 Temp 35.2 Pulse 122 111 Resp 20 B/P (MAP) 119/57 (77) 94/43 Pulse Ox 99 O2 Delivery Room Air Progress Progress Note : Progress Note 71-year-old female with above history coming in due to over 24 hours of vomiting and now A. fib with RVR. Patient's blood pressure initially 100/60, heart rate in the 130s in A. fib. An IV was placed and basic labs were obtained including cardiac biomarkers. EKG obtained and interpreted by me showing A. fib with RVR with no acute ischemic changes. Given the significant vomiting and not keeping any fluids down for over 24 hours, she was given a gentle bolus of 250 cc of normal saline. Chest x-ray appears stable from prior. Troponin slightly eleva santo 0.066 which is likely demand ischemia. BNP elevated around 2000. She does have an LUIS today and an elevated bilirubin which I suspect both are related to her heart failure. I paged Dr. Lundberg to discuss her case. I also contacted Dr. Nails, who will admit the patient to the intensive care unit for further evaluation and management. I then contacted the ICU physician, and I am awaiting a callback to give report. Patient did become intermittently hypotensive, and after discussion with Dr. Nails, we believe she is likely volume depleted with all of the vomiting. We will give her a second bolus of 500 cc of IV fluids to see how she responds. We discussed doing a right upper quadrant ultrasound as well given the degree of her liver enzyme changes, but this will need to wait until she is more stable or, they could potentially do it at the bedside later if deemed still necessary. We also discussed potential antibiotics, the patient does not have any obvious source of bacterial infection. When I was discussing with the intensive care physician, we will add on a lactic acid as well as blood cultures. I do not believe she would tolerate 20 cc/kg bolus of IV fluids for resuscitation given her significant reduced ejection fraction. Initial ECG Impression Date: May 17, 2022 Initial ECG Impression Time: 08:02 Initial ECG Rate: 127 Initial ECG Rhythm: A Fib/Flutter Comment Wide QRS with a left bundle branch block, no STEMI Diagnostic Imaging Diagonstic Imaging: Xray (chest) Comments [facility], [place] NAME: DEB COHN [facility] REC#: [id number] PT STATUS: REG ER : 1950 PHYSICIAN: MICKEY DUMONT MD ADMIT DATE: 05/17/22/ER Signed Date of Exam:05/17/22 CHEST 1 VIEW, AP/PA ONLY EXAMINATION: Chest 1 view HISTORY: Chest pain COMPARISON: 02/15/2022 FINDINGS: Stable mild enlargement of the cardiac silhouette. The left-sided cardiac device is unchanged. Stable surgical clips overlying the left and right chest wall. Stable interstitial opacities within the perihilar and lower lungs. No significant pleural effusion or pneumothorax. The osseous structures are intact. IMPRESSION: 1. Stable mild cardiomegaly and bibasilar interstitial opacities. Dictated by: Dictated on workstation # [id number] Dict: 05/17/2228 Trans: 05/17/22 0831 [id number] Interpreted by: ADONIS GUEVARA DO Electronically signed by: ADONIS GUEVARA DO 05/17/22 0831 Critical Care Note Critical Care Start Time: 07:51 Stop Time: 09:15 Total Time (minutes) 45 Progress The patient was in A. fib with RVR, and intermittently hypotensive. We are managing amiodarone infusion as well as attempting IV fluids which is complicated by her severe heart failure. The patient was closely monitored and reevaluated multiple times. Also spent time discussing with her family and other physicians. Departure Impression Primary Impression: Paroxysmal atrial fibrillation with RVR Additional Impressions: NSTEMI (non-ST elevated myocardial infarction) Vomiting in adult LUIS (acute kidney injury) Hyperbilirubinemia Disposition: ADMITTED INPATIENT Condition: Stable Admissions Decision to Admit Reason: Admit from ER (General) Decision to Admit/Date: May 17, 2022 Time/Decision to Admit Time: 09:05 Departure-Patient Inst. Referrals: CAROLYNN REYNA MD (PCP/Family) Primary Care Physician MICKEY DUMONT MD May 17, 2022 08:11
[2022-05-17 08:17] LABS: BASOPHILS # (AUTO) 0.1 10^3/uL (0.0-0.1); BASOPHILS % (AUTO) 1 % (0-10); EOSINOPHILS # (AUTO) 0.1 10^3/uL (0.0-0.3); EOSINOPHILS % (AUTO) 1 % (0-10); HEMATOCRIT 44 % (35-52); HEMOGLOBIN 13.9 g/dL (11.5-16.0); LYMPHOCYTES # (AUTO) 2.5 10^3/uL (1.0-4.0); LYMPHOCYTES % (AUTO) 20 % (12-44); MEAN CORPUSCULAR HEMOGLOBIN 28 pg (25-34); MEAN CORPUSCULAR HGB CONC 32 g/dL (32-36); MEAN CORPUSCULAR VOLUME 89 fL (80-99); MEAN PLATELET VOLUME 11.2 fL (9.0-12.2); MONOCYTES # (AUTO) 1.4 10^3/uL (0.0-1.0); MONOCYTES % (AUTO) 11 % (0-12); NEUTROPHILS % (AUTO) 66 % (42-75); PLATELET COUNT 255 10^3/uL (130-400); WHITE BLOOD COUNT 12.2 10^3/uL (4.3-11.0)
--- NOTE | 2022-05-17 08:30 | Diagnostic Imaging Report ---
EXAMINATION: Chest 1 view HISTORY: Chest pain COMPARISON: 02/15/2022 FINDINGS: Stable mild enlargement of the cardiac silhouette. The left-sided cardiac device is unchanged. Stable surgical clips overlying the left and right chest wall. Stable interstitial opacities within the perihilar and lower lungs. No significant pleural effusion or pneumothorax. The osseous structures are intact. IMPRESSION: 1. Stable mild cardiomegaly and bibasilar interstitial opacities. Dictated by: Dictated on workstation # [id number]
[2022-05-17 08:33] LABS: INR 1.6 (0.8-1.4); PROTHROMBIN TIME PATIENT 19.2 SEC (12.2-14.7)
[2022-05-17] MEDS ORDERED: AMIODARONE INJECTION 450 MG in NORMAL SALINE 250 ML IV STA (08:36)
[2022-05-17 08:37] LABS: ALBUMIN 4.1 GM/DL (3.2-4.5)
[2022-05-17 08:41] LABS: BILIRUBIN,TOTAL 6.3 MG/DL (0.1-1.0)
[2022-05-17 08:43] LABS: CREATININE SERUM 1.46 MG/DL (0.60-1.30)
[2022-05-17] MEDS ORDERED: APIXABAN 5 MG (ELIQUIS) TABLET PO ONE (08:45)
[2022-05-17] MEDS ORDERED: AMIODARONE FOR BOLUS 150 MG in NS (IVPB) 100 ML IV ONE (08:45)
[2022-05-17 08:55] LABS: POTASSIUM 5.3 MMOL/L (3.6-5.0)
[2022-05-17] MEDS ORDERED: ASPIRIN 81 MG CHEW (CHILDREN'S ASA) PO ONE (09:00)
[2022-05-17] MEDS ORDERED: ONDANSETRON 4 MG/2 ML (SDV) Z0FRAN ONE (09:35)
[2022-05-17] MEDS ORDERED: NS IV 500 ML 500 ML IV STA (09:57)
[2022-05-17] MEDS ORDERED: NS IV 500 ML 500 ML ONE (09:58)
[2022-05-17] MEDS ORDERED: PROMETHAZINE INJ 25 MG/ML (PHENERGAN) AMP ONE (10:03)
[2022-05-17] MEDS ORDERED: PROMETHAZINE INJ 25 MG/ML (PHENERGAN) AMP IVP ONE (10:15)
[2022-05-17] MEDS ORDERED: AMIODARONE INJECTION 450 MG in NORMAL SALINE 250 ML IV SCH (10:30)
[2022-05-17] MEDS ORDERED: CALCIUM CARBONATE 500 MG (TUMS) TAB.CHEW PO PRN (10:30)
[2022-05-17] MEDS ORDERED: ONDANSETRON 4 MG (ZOFRAN) ORAL DISSOLVE TAB PO PRN (10:30)
[2022-05-17] MEDS ORDERED: MELATONIN 3 MG TABLET PO PRN (10:30)
[2022-05-17] MEDS ORDERED: MILK OF MAGNESIA 400 MG/5 ML 30 ML UDC PO PRN (10:30)
[2022-05-17] MEDS ORDERED: NS IV 500 ML 500 ML IV PRN (10:30)
[2022-05-17] MEDS ORDERED: ANTACID SUSP 30 ML UDC (MYLANTA) PO PRN (10:30)
[2022-05-17] MEDS ORDERED: BISACODYL 10 MG SUPP (DULCOLAX) PR PRN (10:30)
[2022-05-17] MEDS ORDERED: polyethylene glycoL POWDER 17 GM (MIRALAX) PACK PO PRN (10:30)
--- NOTE | 2022-05-17 10:41 | Consultation-Cardiology ---
HPI-Cardiology Cardiology Consultation: Date of Consultation 05/17/22 Time Seen by a Provider: 10:30 Date of Admission 05-17-22 Attending Physician Jg Kirk MD Admitting Physician Admitting Physician: Osmany Nails MD Attending Physician: Osmany Nails MD Consulting Physician Yasmeen Lundberg MD HPI: Chief Complaint: A-fib with RVR Ms. Richter is a 71 yr old female who is admitted to ICU 9 from the ED with n/v, a-fib with RVR. She has not taken her medications since Monday d/t n/v. She is visibly uncomfortable in the bed. Review of Systems-Cardiology All Other Systems Reviewed Negative Unless Noted: Yes [id number] Hx Patient Social History Have you traveled recently?: No Alcohol Use?: No Pt feels they are or have been: No Immunizations Up To Date Date of Pneumonia Vaccine: Jan 29, 2017 Date of Influenza Vaccine: Jan 29, 2018 Past Medical History PMH As described under Assessment. Family Medical History Family Medical History: She reports her sister also has cardiomyopathy with an AICD in place. She denies any other family h/o CAD. Allergies and Home Medications Allergies Coded Allergies: codeine (Verified Allergy, Mild, HALLUCINATIONS, 01/18/17) Patient Home Medication List Amiodarone HCl (Amiodarone HCl) 200 Mg Tablet, 100 MG PO DAILY, (Reported) Entered as Reported by: KIMBERLY BURRIS on 02/16/22 1223 Apixaban (Eliquis) 5 Mg Tablet, 5 MG PO BID, (Reported) Entered as Reported by: KIMBERLY BURRIS on 02/16/22 1223 Carvedilol (Carvedilol) 25 Mg Tablet, 12.5 MG PO BID Prescribed by: OSMANY NAILS on 02/21/22 1514 Cyanocobalamin (Vitamin B-12) (Vitamin B-12) 1,000 Mcg Tablet, 1,000 MCG PO DAILY, (Reported) Entered as Reported by: KIMBERLY BURRIS on 02/16/22 1223 Empagliflozin (Jardiance) 10 Mg Tablet, 10 MG PO DAILY Prescribed by: OSMANY NAILS on 02/21/22 1514 Fish Oil/Dha/Epa (Fish Oil 1,200 mg Fish Oil) 1,200 Mg-144 Mg-216 Mg Capsule, 1 EACH PO DAILY, (Reported) Entered as Reported by: KIMBERLY BURRIS on 02/16/22 1223 Furosemide (Furosemide) 40 Mg Tablet, 80 MG PO DAILY Prescribed by: OSMANY NAILS on 02/21/22 1517 Letrozole (Letrozole) 2.5 Mg Tablet, 2.5 MG PO DAILY, (Reported) Entered as Reported by: KIMBERLY BURRIS on 02/16/22 1223 Meclizine HCl (Meclizine HCl) 25 Mg Tablet, 25 MG PO DAILY, (Reported) Entered as Reported by: KIMBERLY BURRIS on 02/16/22 1223 Potassium Gluconate (Potassium Gluconate) 595 Mg (99 Mg) Tablet.er, 99 MG PO DAILY PRN for MUSCLE CRAMPS, (Reported) Entered as Reported by: KIMBERLY BURRIS on 02/16/22 1223 Sacubitril/Valsartan (Entresto 24 mg-26 mg Tablet) 24 Mg-26 Mg Tablet, 1 TAB PO BID Prescribed by: OSMANY NAILS on 02/21/22 1514 Spironolactone (Spironolactone) 25 Mg Tablet, 12.5 MG PO DAILY Prescribed by: OSMANY NAILS on 02/21/22 1514 Venlafaxine HCl (Venlafaxine HCl ER) 150 Mg Cap.er.24h, 150 MG PO DAILY, (Reported) Entered as Reported by: KIMBERLY BURRIS on 02/16/22 1223 Physical Exam-Cardiology Physical Exam Vital Signs/I&O 05/17/22 05/17/22 05/17/22 05/17/22 07:50 08:56 09:15 10:15 Temp 35.2 Pulse 122 111 100 101 Resp 20 16 B/P (MAP) 119/57 (77) 94/43 112/87 107/86 Pulse Ox 99 99 O2 Delivery Room Air Room Air 05/17/22 05/17/22 05/17/22 05/17/22 10:30 10:38 10:45 11:00 Pulse 103 104 96 98 Resp 24 44 B/P (MAP) 117/81 (93) 117/81 (93) 119/95 (103) Pulse Ox 81 99 98 O2 Delivery Room Air Room Air Nasal Cannula O2 Flow Rate 2.00 05/17/22 05/17/22 05/17/22 05/17/22 11:00 11:15 11:30 12:00 Pulse 93 93 98 Resp 37 B/P (MAP) 96/72 (80) 93/69 (77) 113/86 (95) Pulse Ox 97 98 97 O2 Delivery Nasal Cannula Nasal Cannula Nasal Cannula Nasal Cannula O2 Flow Rate 2.00 2.00 2.00 2.00 05/17/22 12:03 Pulse 98 Capillary Refill : Less Than 3 Seconds Skin: jaundice, pallor Data Review Labs Laboratory Tests 05/17/22 08:05: White Blood Count 12.2H, Red Blood Count 4.94, Hemoglobin 13.9, Hematocrit 44, Mean Corpuscular Volume 89, Mean Corpuscular Hemoglobin 28, Mean Corpuscular Hemoglobin Concent 32, Red Cell Distribution Width 18.6H, Platelet Count 255, Mean Platelet Volume 11.2, Immature Granulocyte % (Auto) 1, Neutrophils (%) (Auto) 66, Lymphocytes (%) (Auto) 20, Monocytes (%) (Auto) 11, Eosinophils (%) (Auto) 1, Basophils (%) (Auto) 1, Neutrophils # (Auto) 8.0H, Lymphocytes # (Auto) 2.5, Monocytes # (Auto) 1.4H, Eosinophils # (Auto) 0.1, Basophils # (Auto) 0.1, Immature Granulocyte # (Auto) 0.1, Prothrombin Time 19.2H, INR Comment 1.6H, Activated Partial Thromboplast Time 30, Sodium Level 141, Potassium Level 5.3H, Chloride Level 108H, Carbon Dioxide Level 12L, Anion Gap 21H, Blood Urea Nitrogen 31H, Creatinine 1.46H, Estimat Glomerular Filtration Rate 39, BUN/Creatinine Ratio 21, Glucose Level 76, Calcium Level 11.0H, Corrected Calcium 10.9H, Magnesium Level 2.0, Total Bilirubin 6.3H, Aspartate Amino Transf (AST/SGOT) 60H, Alanine Aminotransferase (ALT/SGPT) 52, Alkaline Phosphatase 101, Troponin I 0.066H, B-Type Natriuretic Peptide 2521.2H, Total Protein 7.0, Albumin 4.1, Lipase 28 05/17/22 08:21: Influenza Type A (RT-PCR) Not Detected, Influenza Type B (RT-PCR) Not Detected, SARS-CoV-2 RNA (RT-PCR) Not Detected 05/17/22 09:55: Troponin I 0.100H 05/17/22 10:56: Glucometer 32*L 05/17/22 11:06: Glucometer 192H 05/17/22 11:35: Blood Gas Puncture Site RIGHT RADIAL, Blood Gas Patient Temperature 35.2, Arterial Blood pH 7.32*L, Arterial Blood Partial Pressure CO2 18*L, Arterial Blood Partial Pressure O2 105H, Arterial Blood HCO3 9*L, Arterial Blood Total CO2 9.9*L, Arterial Blood Oxygen Saturation 98, Arterial Blood Base Excess - 16.2L, Anupam Test YES-POS, Blood Gas Ventilator Setting NO, Blood Gas Inspired Oxygen 2 05/17/22 12:20: Sodium Level 143, Potassium Level 4.7, Chloride Level 106, Carbon Dioxide Level 14L, Anion Gap 23H, Blood Urea Nitrogen 30H, Creatinine 1.70H, Estimat Glomerular Filtration Rate 32, BUN/Creatinine Ratio 18, Glucose Level 112H, Lactic Acid Level 11.80*H, Calcium Level 10.1, Beta-Hydroxybutyrate (Chem panel) 0.27, Procalcitonin 0.21H, Thyroid Stimulating Hormone (TSH) 4.28 05/17/22 12:26: Glucometer 106 A/P-Cardiology Assessment/Admission Diagnosis Nausea/vomitting - undetermined etiology - elevated bili level of undetermined etiology Gen discomfort/weakness PAF (per device interrogation had episode of a-fib in December 2021) - OAC with Eliquis 5mg BID - has been non-compliant for the last few days d/t n/v - has been non-compliant with Amiodarone tx for the last few days d/t n/v Acute on chronic systolic CHF LUIS NICM - Echocardiogram of 04-08-[address] Felton showed LVEF 10-15% with severe diffuse hypokinesis. LA and RA dilated. Mod to severe AoR. Mod MR. Mod to se golden TR. PASP 50-55 mmHg - She reports she had a sleep study done that was "inconclusive" - she does not use CPAP or supplemental oxygen - managed by Dr. Kirk - AICD - implanted in September 2021 at [facility] (pt reports it to be a single chamber device) - followed by Dr. Woodward HLLenin - statin tx H/O DVT R leg - OAC with Eliquis - managed by Dr. Kirk H/O Breast Cancer - has had a mastectomy Discussion and Recomendations Nausea/vomiting of undetermined etiology - management per medical/eICU services - elevated bili level of undetermined etiology Suspect sepsis Hypotension likely d/t vol depletion - give IVF NICM - echocardiogram today A-fib with RVR - Amiodarone gtt initiated - OAC with Eliquis Monitor lab closely Replace electrolytes as indicated Further recs will be based on her hospital course JOSIE WINKLER May 17, 2022 10:41
[2022-05-17] MEDS ORDERED: DEXTROSE 50% 50 ML (IMS) SYR ONE ×2 (10:57→16:32)
--- NOTE | 2022-05-17 11:15 | Tele-ICU Consult ---
History of Present Illness History of Present Illness Date Seen by Provider: May 17, 2022 Time Seen by Provider: 11:15 Date of Admission (Tele-ICU Physician , consultation as per request of PCP Service provided via interactive audio and video telecommunications E-CARE system to a patient admitted to ICU bed in [facility]. Available chart/ vitals / labs / Images reviewed H&P is from ER notes Patient's information available about PMH, Shx, Fhx allergy reviewed inEMR. ROS as per chart and RN report Now in ICU, hemodynamically stable Video assessment done using teleICU camera, rest of exam as per RN Discussed with RN. 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, HFrEF (04/08/20 echo with LVEF 10-15%, severe diffuse hypokinesis - new ECHO pending Borderline Hypotension - received 500 ml NDS bolus in er LUIS - due to all above - repat labs , follow AG severe met acidosis - will check abg , consider bicarb prn for dyspnea and hypotension Hypoglycemia - placed on protocol for relacement S/P LUMPECTOMY ON LEFT SIDE, RT SIDE MASTECTOMY -s/pCHEMO AND RADIATION--DX IN 1980 Lines : , (Central Line Necessity Reviewed) Haddad: OG: Nutrition: Analgesia: Anxiety/ delirium VTE Prophylaxis: Stress Ulcer Prophylaxis: Glycemic Control: Plans in collaboration with bedside consultants and IM MDs. Discussed with RN to reach out if any questions or concerns A total of 33 minutes of critical care time was devoted to this patient today, required to treat and/or prevent further deterioration of critical care condition ( as above ) . I am remotely monitoring this patient from another state. I am unable to do the bedside exam, and history/physical and pertinent information is taken from other notes in the computer and bedside staff. . Allergies and Home Medications Allergies Coded Allergies: codeine (Verified Allergy, Mild, HALLUCINATIONS, 01/18/17) Home Medications Amiodarone HCl 200 Mg Tablet, 100 MG PO DAILY, (Reported) TAKES OF A 200MG TAB Apixaban 5 Mg Tablet, 5 MG PO BID, (Reported) Carvedilol 25 Mg Tablet, 12.5 MG PO BID Prescribed by: OSMANY NAILS on 02/21/221513 Cyanocobalamin (Vitamin B-12) 1,000 Mcg Tablet, 1,000 MCG PO DAILY, (Reported) Empagliflozin 10 Mg Tablet, 10 MG PO DAILY Prescribed by: OSMANY NAILS on 02/21/221513 Fish Oil/Dha/Epa 1,200 Mg-144 Mg-216 Mg Capsule, 1 EACH PO DAILY, (Reported) Furosemide 40 Mg Tablet, 80 MG PO DAILY Prescribed by: OSMANY NAILS on 02/21/221516 Letrozole 2.5 Mg Tablet, 2.5 MG PO DAILY, (Reported) Meclizine HCl 25 Mg Tablet, 25 MG PO DAILY, (Reported) Potassium Gluconate 595 Mg (99 Mg) Tablet.er, 99 MG PO DAILY PRN for MUSCLE CRAMPS, (Reported) Sacubitril/Valsartan 24 Mg-26 Mg Tablet, 1 TAB PO BID Prescribed by: OSMANY NAILS on 02/21/221513 Spironolactone 25 Mg Tablet, 12.5 MG PO DAILY Prescribed by: OSMANY NAILS on 02/21/221513 Venlafaxine HCl 150 Mg Cap.er.24h, 150 MG PO DAILY, (Reported) Past Medical/Social/Family Hx Patient Social History Tobacco Use?: No Substance use?: No Alcohol Use?: No Pt stated abuse/neglect: No Immunizations Up To Date Influenza Vaccine Up-to-Date: Yes; Up-to-Date First/Initial COVID19 Vaccinat: 2020 Second COVID19 Vaccination Leighton: 2020 Date of Pneumonia Vaccine: Jan 29, 2017 Current Status Advance Directives: No Communicates: Verbally Primary Language: Setswana Preferred Spoken Language: Setswana Is interpretation needed?: No Sensory deficits: Vision impairment Implanted or Applied Medical D: Pacemaker Review of Systems Constitutional: see HPI Focused Exam Height, Weight, BMI Height: 5'8.00" Weight: 230lbs. 0.0oz. 104.198371ek; 34.00 BMI Method:Stated Exam Exam Patient acknowledged, consented, and participated in this virtual visit which was conducted using real time audio/video Vital Signs Date Time Temp Pulse Resp B/P (MAP) Pulse Ox O2 Delivery O2 Flow Rate FiO2 05/17/22 11:00 Nasal Cannula 2.00 05/17/22 10:45 96 24 117/81 (93) 99 Room Air 05/17/22 10:38 104 05/17/22 10:15 101 16 107/86 99 Room Air 05/17/22 09:15 100 112/87 05/17/22 08:56 111 94/43 05/17/22 07:50 35.2 122 20 119/57 (77) 99 Room Air Height & Weight Height: 5'8.00" Weight: 230lbs. 0.0oz. 104.226659ai; 34.00 BMI Method:Stated General Appearance: No Apparent Distress, WD/WN HEENT: PERRL/EOMI, Normal ENT Inspection, Pharynx Normal Neck: Full Range of Motion, Normal Inspection, Non Tender, Supple Respiratory: Chest Non Tender, Lungs Clear, Normal Breath Sounds, No Accessory Muscle Use, No Respiratory Distress Cardiovascular: Normal Peripheral Pulses, Irregularly Irregular, Tachycardia Capillary Refill: Greater Than 3 Seconds Extremity: Normal Capillary Refill, Normal Inspection, Normal Range of Motion, Non Tender, No Calf Tenderness, No Pedal Edema Neurologic/Psychiatric: Alert, Oriented x3, No Motor/Sensory Deficits, Normal Mood/Affect Skin: Normal Color, Warm/Dry Lymphatic: No Adenopathy Results Lab Laboratory Tests 05/17/22 08:05 Assessment/Plan Assessment/Plan 1 RANDI MCCLOUD MD May 17, 2022 11:15
[2022-05-17] MEDS ORDERED: NS (IVPB) 250 ML ONE (11:26)
[2022-05-17] MEDS ORDERED: SODIUM BICARB 8.4% 50 MEQ/50 ML (ABBOTT) SYR IV NR (11:30)
[2022-05-17] MEDS ORDERED: DEXTROSE 50% 50 ML (IMS) SYR IV ONE ×2 (11:30→17:00)
[2022-05-17] MEDS: inSUlin ASPART (NovoLOG) 1 UNIT/0.01 ML (CHARGE PER UNIT) SC SCH ×4 (11:31→23:42)
[2022-05-17] MEDS: NS IV 1000 ML 1,000 ML IV SCH ×2 (11:34→20:55)
[2022-05-17 11:42] LABS: ABG BASE EXCESS -16.2 MMOL/L (-2.5-2.5); ABG OXYGEN SATURATION 98 % (94-100); ABG PO2 105 MMHG (79-93)
[2022-05-17 11:46] LABS: ABG PCO2 18 MMHG (35-45); ABG PH 7.32 (7.37-7.43)
[2022-05-17 11:47] LABS: ABG TCO2 9.9 MMOL/L (21.0-31.0)
[2022-05-17 11:48] LABS: ALLENS TEST YES-POS; INSPIRED O2 2; PATIENT TEMP 35.2; VENTILATOR NO
[2022-05-17 12:39] LABS: POTASSIUM 4.7 MMOL/L (3.6-5.0)
[2022-05-17 12:41] LABS: CALCIUM 10.1 MG/DL (8.5-10.1)
[2022-05-17 12:45] LABS: CREATININE SERUM 1.7 MG/DL (0.60-1.30)
[2022-05-17] MEDS ORDERED: VANCOMYCIN INJECTION 0.1 MG in NS (IVPB) 250 ML IV SCH (13:00)
[2022-05-17] MEDS ORDERED: PIPERACILLIN SODIUM/TAZOBACTAM 4.5 GM in NS (IVPB) 100 ML IV NR (13:15)
[2022-05-17] MEDS ORDERED: DIGOXIN 0.25 MG/ML (LANOXIN) 2 ML AMP IV NR (13:45)
--- NOTE | 2022-05-17 13:51 | Consultation-Cardiology ---
HPI-Cardiology Cardiology Consultation: Date of Consultation 05/17/22 Time Seen by a Provider: 13:30 Date of Admission Attending Physician Jg Kirk MD Admitting Physician Admitting Physician: Osmany Nails MD Attending Physician: Osmany Nails MD Consulting Physician CHAU POPE MD, MA, FACP, FACC, [facility], [facility] Physician requesting consult: Dr Nails HPI: Chief Complaint: Reason for Card consult: A-fib with RVR Ms. Richter is a 71 yr old female who is admitted to ICU 9 from the ED with n/v, a-fib with RVR. She has not taken her medications since Monday d/t n/v. She notes gen malaise and weakness. She does not report cp or palp or syncope. She has chronic exertional shortness of breath but is not reporting shortness of breath at rest. She does not report abd pain Review of Systems-Cardiology Review of Systems Constitutional: No malaise, No weight loss Eyes: No vision change Ears/Nose/Throat: No ear discharge, No nasal drainage, No recent hearing loss Respiratory: As described under HPI Cardiovascular: As described under HPI Gastrointestinal: As described under HPI Genitourinary: No dysuria, No hematuria, No urine frequency changes Musculoskeletal: No back pain Skin: No rash, No ulcerations Psychiatric/Neurological: No seizure, No focal weakness, No syncope Hematologic: No bleeding abnormalities All Other Systems Reviewed Negative Unless Noted: Yes MZG-Rhllkd-Vwyqun Hx Patient Social History Have you traveled recently?: No Alcohol Use?: No Pt feels they are or have been: No Immunizations Up To Date Date of Pneumonia Vaccine: Jan 29, 2017 Date of Influenza Vaccine: Jan 29, 2018 Past Medical History PMH As described under Assessment. Family Medical History Family Medical History: She reports her sister also has cardiomyopathy with an AICD in place. She denies any other family h/o CAD. Allergies and Home Medications Allergies Coded Allergies: codeine (Verified Allergy, Mild, HALLUCINATIONS, 01/18/17) Patient Home Medication List Home Medication List Reviewed: Yes Amiodarone HCl (Amiodarone HCl) 200 Mg Tablet, 100 MG PO DAILY, (Reported) Entered as Reported by: KIMBERLY BURRIS on 02/16/22 1223 Apixaban (Eliquis) 5 Mg Tablet, 5 MG PO BID, (Reported) Entered as Reported by: KIMBERLY BURRIS on 02/16/22 1223 Carvedilol (Carvedilol) 25 Mg Tablet, 12.5 MG PO BID Prescribed by: OSMANY NAILS on 02/21/22 151 Cyanocobalamin (Vitamin B-12) (Vitamin B-12) 1,000 Mcg Tablet, 1,000 MCG PO DAILY, (Reported) Entered as Reported by: KIMBERLY BURRIS on 02/16/22 122 Empagliflozin (Jardiance) 10 Mg Tablet, 10 MG PO DAILY Prescribed by: OSMANY NAILS on 02/21/22 151 Fish Oil/Dha/Epa (Fish Oil 1,200 mg Fish Oil) 1,200 Mg-144 Mg-216 Mg Capsule, 1 EACH PO DAILY, (Reported) Entered as Reported by: KIMBERLY BURRIS on 02/16/22 122 Furosemide (Furosemide) 40 Mg Tablet, 80 MG PO DAILY Prescribed by: OSMANY NAILS on 02/21/22 151 Letrozole (Letrozole) 2.5 Mg Tablet, 2.5 MG PO DAILY, (Reported) Entered as Reported by: KIMBERLY BURRIS on 02/16/22 122 Meclizine HCl (Meclizine HCl) 25 Mg Tablet, 25 MG PO DAILY, (Reported) Entered as Reported by: KIMBERLY BURRIS on 02/16/22 122 Potassium Gluconate (Potassium Gluconate) 595 Mg (99 Mg) Tablet.er, 99 MG PO LETY LY PRN for MUSCLE CRAMPS, (Reported) Entered as Reported by: KIMBERLY BURRIS on 02/16/22 122 Sacubitril/Valsartan (Entresto 24 mg-26 mg Tablet) 24 Mg-26 Mg Tablet, 1 TAB PO BID Prescribed by: OSMANY NAILS on 02/21/22 151 Spironolactone (Spironolactone) 25 Mg Tablet, 12.5 MG PO DAILY Prescribed by: OSMANY NAILS on 02/21/22 151 Venlafaxine HCl (Venlafaxine HCl ER) 150 Mg Cap.er.24h, 150 MG PO DAILY, (Reported) Entered as Reported by: KIMBERLY BURRIS on 02/16/22 122 Physical Exam-Cardiology Physical Exam Vital Signs/I&O 05/17/22 05/17/22 05/17/2217/23 07:50 08:56 09:15 10:15 Temp 35.2 Pulse 122 111 100 101 Resp 20 16 B/P (MAP) 119/57 (77) 94/43 112/87 107/86 Pulse Ox 99 99 O2 Delivery Room Air Room Air 05/17/22 05/17/22 05/17/22 05/17/22 10:30 10:38 10:45 11:00 Pulse 103 104 96 98 Resp 24 44 B/P (MAP) 117/81 (93) 117/81 (93) 119/95 (103) Pulse Ox 81 99 98 O2 Delivery Room Air Room Air Nasal Cannula O2 Flow Rate 2.00 05/17/22 05/17/22 05/17/22 05/17/22 11:00 11:15 11:30 12:00 Pulse 93 93 98 Resp 37 B/P (MAP) 96/72 (80) 93/69 (77) 113/86 (95) Pulse Ox 97 98 97 O2 Delivery Nasal Cannula Nasal Cannula Nasal Cannula Nasal Cannula O2 Flow Rate 2.00 2.00 2.00 2.00 05/17/22 12:03 Pulse 98 Capillary Refill : Greater Than 3 Seconds Constitutional: AAO x 3, well-developed, well-nourished, other (yellowish appearance) HEENT: PERRL, EOMI, hearing is well preserved; No xanthelasmas are seen Neck: No non-tender; carotid pulses are 2 + bilaterally, with good upstrokes Respiratory: No accessory muscle use; chest expansion is symmetric, chest is bilaterally symmetric, other (fair to good, bilateral air entry that is diminished at the bases) Cardiovascular: regular rate-rhythm, S1 and S2, systolic murmur (soft YASSINE at card base) Gastrointestinal: No tender; soft; No guarding, No rebound; audible bowel sounds Extremities: No clubbing, No cyanosis, No significant edema Neurologic/Psychiatric: other (able to move all limbs) Skin: warm/dry, jaundice, pallor; No rash on exposed areas, No ulcerations on exposed areas Data Review Labs Laboratory Tests 05/17/22 08:05: White Blood Count 12.2H, Red Blood Count 4.94, Hemoglobin 13.9, Hematocrit 44, Mean Corpuscular Volume 89, Mean Corpuscular Hemoglobin 28, Mean Corpuscular Hemoglobin Concent 32, Red Cell Distribution Width 18.6H, Platelet Count 255, Mean Platelet Volume 11.2, Immature Granulocyte % (Auto) 1, Neutrophils (%) (Auto) 66, Lymphocytes (%) (Auto) 20, Monocytes (%) (Auto) 11, Eosinophils (%) (Auto) 1, Basophils (%) (Auto) 1, Neutrophils # (Auto) 8.0H, Lymphocytes # (Aut o) 2.5, Monocytes # (Auto) 1.4H, Eosinophils # (Auto) 0.1, Basophils # (Auto) 0 .1, Immature Granulocyte # (Auto) 0.1, Prothrombin Time 19.2H, INR Comment 1.6H, Activated Partial Thromboplast Time 30, Sodium Level 141, Potassium Level 5.3H, Chloride Level 108H, Carbon Dioxide Level 12L, Anion Gap 21H, Blood Urea Nitrogen 31H, Creatinine 1.46H, Estimat Glomerular Filtration Rate 39, BUN/Creatinine Ratio 21, Glucose Level 76, Calcium Level 11.0H, Corrected Calcium 10.9H, Magnesium Level 2.0, Total Bilirubin 6.3H, Aspartate Amino Transf (AST/SGOT) 60H, Alanine Aminotransferase (ALT/SGPT) 52, Alkaline Phosphatase 101, Troponin I 0.066H, B-Type Natriuretic Peptide 2521.2H, Total Protein 7.0, Albumin 4.1, Lipase 28 05/17/22 08:21: Influenza Type A (RT-PCR) Not Detected, Influenza Type B (RT-PCR) Not Detected, SARS-CoV-2 RNA (RT-PCR) Not Detected 05/17/22 09:55: Troponin I 0.100H 05/17/22 10:56: Glucometer 32*L 05/17/22 11:06: Glucometer 192H 05/17/22 11:35: Blood Gas Puncture Site RIGHT RADIAL, Blood Gas Patient Temperature 35.2, Arterial Blood pH 7.32*L, Arterial Blood Partial Pressure CO2 18*L, Arterial Blood Partial Pressure O2 105H, Arterial Blood HCO3 9*L, Arterial Blood Total CO2 9.9*L, Arterial Blood Oxygen Saturation 98, Arterial Blood Base Excess - 16.2L, Anupam Test YES-POS, Blood Gas Ventilator Setting NO, Blood Gas Inspired Oxygen 2 05/17/22 12:20: Sodium Level 143, Potassium Level 4.7, Chloride Level 106, Carbon Dioxide Level 14L, Anion Gap 23H, Blood Urea Nitrogen 30H, Creatinine 1.70H, Estimat Glomerular Filtration Rate 32, BUN/Creatinine Ratio 18, Glucose Level 112H, Lactic Acid Level 11.80*H, Calcium Level 10.1, Beta-Hydroxybutyrate (Chem panel) 0.27, Procalcitonin 0.21H, Thyroid Stimulating Hormone (TSH) 4.28 05/17/22 12:26: Glucometer 106 Laboratory Tests 05/17/22 08:05 05/17/22 12:20 A/P-Cardiology Assessment/Admission Diagnosis Shock: septic and/or cardiogenic - mild troponin elevation due to type 2 VT due to hypotension Marked jaundice and n&v of undetermined etiology - managed by Hosp and ICU svces PAF - OAC with Eliquis 5mg BID - did not take on 05/15 and 05/16/22 due to n/v, resumed today - has been non-compliant with Amiodarone tx on 05/15 and 05/16/22 d/t n/v Chronic HFrEF due to NICM (primarily managed by her block chopper hand Dr Woodward in [place], [place]) - Echocardiogram of 04-08-[address] Felton showed LVEF 10-15% with severe diffuse hypokinesis. LA and RA dilated. Mod to severe AoR. Mod MR. Mod to severe TR. PASP 50-55 mmHg - She reports she had a sleep study done that was "inconclusive" - she does not use CPAP or supplemental oxygen - managed by Dr. Kirk - AICD - implanted in September 2021 at [facility] (single chamber device) - followed by Dr. Woodward - Echo on 05-17-22: LVEF 20-25%, global hypokinesis of LV, mild to mod MR, PASP 35-40 mmHg LUIS and oliguria/anuria - likely due to ATN due to hypotension HLD - statin tx H/o DVT R leg - OAC with Eliquis H/O Breast Cancer - has had a mastectomy Discussion and Recomendations * iv dobutamine to improve cardiac output * iv Levophed to maintain bp * iv fluids as needed and as tolerated * Digoxin to control heart rate and treat heart failure * Not suitable for bb or NIRALI-inhib/ARB due to low bp * Monitor labs closely * Prognosis guarded because of severe multisystem involvement: cardiac, GI, renal, and ?sepsis * Consider transfer to tertiary care center where all pertinent specialities would be available * I called and discussed her case with CHAU García MD FACP [facility] May 17, 2022 13:51
--- NOTE | 2022-05-17 13:56 | History & Physical-Hospitalist ---
MILAGROS ARAUJO 05/17/22 1356: History of Present Illness HPI/Chief Complaint Sandra Richter is a 71yo female with past medical history of paroxysmal A. fib/flutter on Eliquis, HFrEF, and HLD presenting with 1 day of nonbloody nonbilious vomiting and generalized weakness. Pt hasn't taken any of her home medications since Monday due to vomiting. Pt states she doesn't have much of an appetite and has only been drinking water. Pt claims she has an associated headache with her nausea. Pt denies fever and chills, but claims she is feeling very hot. Endorses palpations, weakness, and SOB. Date Seen 05/17/22 Time Seen by a Provider: 12:00 Attending Physician Jg Kirk MD PCP Admitting Physician: Osmany Nails MD Attending Physician: Osmany Nails MD Referring Physician Date of Admission May 17, 2022 at 09:10 Home Medications & Allergies Home Medications Reviewed patient Home Medication Reconciliation performed by pharmacy medication reconciliations windshield repair technician and/or nursing. Patients Allergies have been reviewed. Allergies Allergies Coded Allergies codeine (Verified Allergy, Mild, HALLUCINATIONS, 01/18/17) Past Fbjtakb-Ymgkgh-Zqisig Hx Patient Social History Tobacco Use?: No Substance use?: No Alcohol Use?: No Pt feels they are or have been: No Immunizations Up To Date Date of Influenza Vaccine: Jan 29, 2018 First/Initial COVID19 Vaccinat: 2020 Second COVID19 Vaccination Leighton: 2020 Date of Pneumonia Vaccine: Jan 29, 2017 Seasonal Allergies Seasonal Allergies: Yes Current Status Advance Directives: No Communicates: Verbally Primary Language: Sierra Leonean Preferred Spoken Language: [place] Leonean Is interpretation needed?: No Sensory deficits: Vision impairment Implanted or Applied Medical D: Pacemaker Past Medical History Surgeries: Breast, Gallbladder, Tubal Ligation Cardiomyopathy, Chronic Edema/Swelling, Hypertension [employer]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 History: Tubal Ligation Sexually Transmitted Disease: No HIV/AIDS: No Polyps Arthritis Loss of Vision: Bilateral Hearing Impairment: Denies Breast Did You Recieve Any Treatments: Yes What Type of Treatment Did You: Chemotherapy, Radiation, Surgical Intervention Blood Disorders: No Adverse Reaction/Blood Tranf: No (N/A) Family Medical History Cancer, GI Disease Review of Systems Constitutional: No chills, No fever; weakness Respiratory: No cough; short of breath Cardiovascular: No chest pain; palpitations Gastrointestinal: No abdominal pain; loss of appetite, nausea Psychiatric/Neurological: Denies Numbness, Denies Tingling Physical Exam Physical Exam Vital Signs Vital Signs - First Documented 05/17/22 07:50 Temp 35.2 Pulse 122 Resp 20 B/P (MAP) 119/57 (77) Pulse Ox 99 O2 Delivery Room Air Capillary Refill : Greater Than 3 Seconds Height, Weight, BMI Height: 5'8.00" Weight: 230lbs. 0.0oz. 104.257751hz; 34.00 BMI Method:Stated General Appearance: Mild Distress, Obese Respiratory: Chest Non Tender, Lungs Clear, Normal Breath Sounds Cardiovascular: Regular Rate, Rhythm, No Edema, No Murmur, Normal Peripheral Pulses Gastrointestinal: Normal Bowel Sounds, Non Tender, Soft Rectal: Deferred Extremity: Normal Inspection, Normal Range of Motion, Non Tender, No Calf Tenderness Neurologic/Psychiatric: Alert, Oriented x3 Skin: Normal Color, Warm/Dry Lymphatic: No Adenopathy Results Results/Procedures Labs Laboratory Tests 05/17/22 08:05 05/17/22 12:20 Patient resulted labs reviewed. Imaging CHEST 1 VIEW, AP/PA ONLY EXAMINATION: Chest 1 view HISTORY: Chest pain COMPARISON: 02/15/2022 FINDINGS: Stable mild enlargement of the cardiac silhouette. The left-sided cardiac device is unchanged. Stable surgical clips overlying the left and right chest wall. Stable interstitial opacities within the perihilar and lower lungs. No significant pleural effusion or pneumothorax. The osseous structures are intact. IMPRESSION: 1. Stable mild cardiomegaly and bibasilar interstitial opacities. Assessment/Plan Assessment and Plan Septic Shock SIRS +: Hypothermic; Tachycardia; Leukocytosis Lactic Acidosis Hypotensive Negative CXR for Pneumonia U/A ordered and awaiting collection Blood Cultures Ordered Cortisol Lab Ordered r/o Adrenal Insufficiency IV Fluids started for Hypotension and Lactic Acidosis Sodium Bicarbonate for Lactic Acidosis Atrial Fibrillation w/ RVR Started Amiodarone HFrEF ECHO Systolic Dyfunction; EF 20-25% Mild to Moderate Mitral Valve Regurgitation Hypoglycemia Septic Shock v. Adrenal Insufficiency Elevated K+, Hypotensive, and Hypoglycemic could be consistent with Adrenal Insufficiency Cortisol Lab Ordered r/o Adrenal Insufficiency LUIS Dehydration IV Fluids Metabolic Acidosis secondary to Lactic Acidosis ABG Ordered Normal Beta Hydroxybutyrate Elevated Lactic Acid: 11.8 Started Sodium Bicarbonate and IV Fluids Hyperbilirubinemia Transaminitis Mild Hepatitis RUQ Ultrasound OSMANY NAILS MD 05/17/22 1604: History of Present Illness Source: patient, family Exam Limitations: clinical condition Time Seen by a Provider: 12:30 Past Pqedqmh-Ityjpz-Sliosm Hx Patient Social History Tobacco Use?: No Smoking Status: Former Smoker Substance use?: No Alcohol Use?: No Past Medical History Cardiomyopathy Family Medical History No Pertinent Family Hx Physical Exam Physical Exam General Appearance: Mild Distress (tachypnea), Obese, Other (ill-appearing) HEENT: PERRL/EOMI, Pharynx Normal Neck: Normal Inspection, Supple Respiratory: Lungs Clear, Respiratory Distress (tachypnea) Cardiovascular: Regular Rate, Rhythm, No Murmur, Normal Peripheral Pulses Gastrointestinal: Normal Bowel Sounds, Non Tender, Soft; No Distended, No Guarding Extremity: Normal Inspection, Non Tender, No Pedal Edema Neurologic/Psychiatric: Alert, Motor Weakness Skin: Cool, Jaundice, Mottled, Pallor Results Results/Procedures Imaging: Reviewed Imaging Report Assessment/Plan Admission Diagnosis Shock Admission Status: Inpatient Order (span 2 midnights) Reason for Inpatient Admission: Sepsis Assessment and Plan Shock, possibly mixed septic and cardiogenic SIRS HFrEF Lactic acidosis LUIS Hypoglycemia Hyperbilirubinemia Atrial tachycardia TeleICU consulted, plan discussed with Dr. Vickers Cardiology consutled, plan discussed with Dr. Lundberg SIRS+ with hypothermia, leuocytosis, tachycardia, tachypnea Lactic acid 11.8 Procal 0.21 CXR unremarkable UA unable to be obtained Add blood cultures Vanc and Zosyn IV fluids, gentle with heart failure Echo with EF 20-25% Levophed and Dobutamine for possible mixed septic and cardiogenic shock Stop Amiodarone Starting Digoxin RUQ ultrasound unremarkable Trend troponin and lactic acid Critical Care Critically Ill Patient Diagnosis/Problems Diagnosis/Problems (1) Shock Status: Acute (2) Lactic acidosis Status: Acute (3) NSTEMI (non-ST elevation myocardial infarction) Status: Acute (4) Acute on chronic HFrEF (heart failure with reduced ejection fraction) Status: Acute (5) LUIS (acute kidney injury) Status: Acute (6) Hyperbilirubinemia Status: Acute Supervisory-Addendum Brief Verification & Attestation Participated in pt care: history, MDM, physical Personally performed: exam, history, MDM, supervision of care Care discussed with: Medical Student Procedures: n/a Results interpretation: Verified all documentation A medical student performed and documented this service in my presence. I reviewed and verified all information documented by the medical student and made modifications to such information, when appropriate. I personally performed the physical exam and medical decision making. MILAGROS ARAUJO May 17, 2022 13:56 OSMANY NAILS MD May 17, 2022 16:04
[2022-05-17] MEDS ORDERED: VANCOMYCIN 1,750 MG/NS 500 ML IVPB IV NR ×2 (14:00)
[2022-05-17] MEDS ORDERED: LIDOCAINE 1% INJ 20 ML VIAL INJ NR (14:00)
[2022-05-17] MEDS ORDERED: LIDOCAINE 1% INJ 20 ML VIAL ONE (14:08)
--- NOTE | 2022-05-17 14:36 | Anesthesia-Procedure Note ---
Procedures/Interventions Procedure Start/Stop/Diagnosis Date of Procedure: May 17, 2022 Start Time: 14:10 Referring Physician: Dr Avitia Preprocedural Diagnosis: CHF Brief History Called to ICU for arterial line placement. Spoke with patient and family about the arterial line placement. ?'s answered Stop Time: 14:20 Postprocedural Diagnosis: Same Arterial Line Arterial Line Catheter: 20G Type: Radial Location: Right Procedure: prepped, draped in sterile fashion (ChloraPrep), 1% lidocaine used to numb region (1 mL), good wave-form was obtained, patient tolerated procedure well, no immediate complications, post procedure area cleaned, post procedure dressing applied WARD MCDOWELL DO May 17, 2022 14:36
--- NOTE | 2022-05-17 14:56 | Consultation - Surgery ---
NICHOLAS MORALES 05/17/22 1456: History of Present Illness History of Present Illness Patient Consulted On(altagracia/time) 05/17/22 14:51 Date Seen by Provider: May 17, 2022 Time Seen by Provider: 14:51 History of Present Illness Consultation requested for central line placement. Pt is a 71 YO female who presented to ED this morning after having 24 hours of non bloody vomiting and nausea. She now feels weak all over and has not been able to take her daily medications since Monday due to emesis. She denies recent illness, fever, chills, diarrhea, blood in stool, chest pain, dysuria, or shortness of breath. She has PMH of Afib and HF with LVED 10-15%. She takes eliquis, her last dose was this morning in ED. In ED she was found to be in Afib with RVR. She was also found to have a UTI and started on vancomycin and zosyn. She received two boluses of IVF in ED. Her lactic acid is elevated at 11.80. Denies any other complaints at this time. She is allergic to codeine. She has had a cholecystectomy, right mastectomy, left lumpectomy with axillary lymph node dissection. Allergies and Home Medications Allergies Coded Allergies: codeine (Verified Allergy, Mild, HALLUCINATIONS, 01/18/17) Patient Home Medication List Home Medication List Reviewed: Yes Amiodarone HCl (Amiodarone HCl) 200 Mg Tablet, 400 MG PO DAILY, (Reported) Entered as Reported by: KIMBERLY BURRIS on 05/18/22 1114 Last Action: Reviewed Apixaban (Eliquis) 5 Mg Tablet, 5 MG PO BID, (Reported) Entered as Reported by: KIMBERLY BURRIS on 02/16/22 1223 Last Action: Reviewed Carvedilol (Carvedilol) 25 Mg Tablet, 12.5 MG PO BID, (Reported) Entered as Reported by: KIMBERLY BURRIS on 05/18/22 1114 Last Action: Reviewed Cyanocobalamin (Vitamin B-12) (Vitamin B-12) 1,000 Mcg Tablet, 1,000 MCG PO DAILY, (Reported) Entered as Reported by: KIMBERLY BURRIS on 02/16/22 1223 Last Action: Reviewed Empagliflozin (Jardiance) 10 Mg Tablet, 10 MG PO DAILY, (Reported) Entered as Reported by: KIMBERLY BURRIS on 05/18/221113 Last Action: Reviewed Fish Oil/Dha/Epa (Fish Oil 1,200 mg Fish Oil) 1,200 Mg-144 Mg-216 Mg Capsule, 1 EACH PO DAILY, (Reported) Entered as Reported by: KIMBERLY BURRIS on 02/16/221222 Last Action: Reviewed Furosemide (Furosemide) 40 Mg Tablet, 40 MG PO DAILY, (Reported) Entered as Reported by: KIMBERLY BURRIS on 05/18/221113 Last Action: Reviewed Letrozole (Letrozole) 2.5 Mg Tablet, 2.5 MG PO DAILY, (Reported) Entered as Reported by: KIMBERLY BURRIS on 02/16/221222 Last Action: Reviewed Meclizine HCl (Meclizine HCl) 25 Mg Tablet, 25 MG PO DAILY, (Reported) Entered as Reported by: KIMBERLY BURRIS on 02/16/221222 Last Action: Reviewed Potassium Gluconate (Potassium Gluconate 595 MG) 595 Mg (99 Mg) Tablet, 99 MG PO DAILY PRN for MUSCLE CRAMPS, (Reported) Entered as Reported by: KIMBERLY BURRIS on 05/18/221113 Last Action: Reviewed Spironolactone (Spironolactone) 25 Mg Tablet, 12.5 MG PO DAILY, (Reported) Entered as Reported by: KIMBERLY BURRIS on 05/18/221113 Last Action: Reviewed Venlafaxine HCl (Venlafaxine HCl ER) 150 Mg Cap.er.24h, 150 MG PO DAILY, (Reported) Entered as Reported by: KIMBERLY BURRIS on 02/16/221222 Last Action: Reviewed Discontinued Medications Amiodarone HCl (Amiodarone HCl) 200 Mg Tablet, 100 MG PO DAILY, (Reported) Discontinued Reason: No Longer Taking Entered as Reported by: KIMBERLY BURRIS on 02/16/221222 Last Action: Discontinued Carvedilol (Carvedilol) 25 Mg Tablet, 12.5 MG PO BID Discontinued Reason: No Longer Taking Prescribed by: OSMANY NAILS on 02/21/221513 Last Action: Discontinued Empagliflozin (Jardiance) 10 Mg Tablet, 10 MG PO DAILY Discontinued Reason: Duplicate Order Prescribed by: OSMANY NAILS on 02/21/221513 Last Action: Discontinued Furosemide (Furosemide) 40 Mg Tablet, 80 MG PO DAILY Discontinued Reason: Duplicate Order Prescribed by: OSMANY NAILS on 02/21/221516 Last Action: Discontinued Sacubitril/Valsartan (Entresto 24 mg-26 mg Tablet) 24 Mg-26 Mg Tablet, 1 TAB PO BID Discontinued Reason: No Longer Taking Prescribed by: OSMANY NAILS on 02/21/221513 Last Action: Discontinued Spironolactone (Spironolactone) 25 Mg Tablet, 12.5 MG PO DAILY Discontinued Reason: Duplicate Order Prescribed by: OSMANY NAILS on 02/21/221513 Last Action: Discontinued Past Tdlvvfl-Vituzw-Qcanbj Hx Patient Social History Recent Hopitalizations: No Alcohol Use?: No Have you traveled recently?: No Immunizations Up To Date Date of Pneumonia Vaccine: Jan 29, 2017 Date of Influenza Vaccine: Jan 29, 2018 Seasonal Allergies Seasonal Allergies: Yes Surgeries History of Surgeries: Yes (LUMPECTOMY-LEFT BREAST) Surgeries: Breast, Gallbladder, Tubal Ligation Respiratory History of Respiratory Disorde: No Cardiovascular History of Cardiac Disorders: Yes (CHF; NON-ISCHEMIC CARDIOMYOPATHY. 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 Genitourinary History of Genitourinary Disor: No Gastrointestinal History of Gastrointestinal Di: No Gastrointestinal Disorders: Polyps Musculoskeletal History of Musculoskeletal Dis: Yes Musculoskeletal Disorders: Arthritis Endocrine History of Endocrine Disorders: No HEENT History of HEENT Disorders: No Loss of Vision: Bilateral Hearing Impairment: Denies Cancer History of Cancer: Yes (LEFT LUMPECTOMY, CHEMO AND RADIATION--DX IN 1980) Cancer: Breast Psychosocial History of Psychiatric Problem: No Integumentary History of Skin or Integumenta: No Blood Transfusions History of Blood Disorders: No Adverse Reaction to a Blood Tr: No (N/A) Family Medical History Significant Family History: Cancer, GI Disease Review of Systems-General Constitutional: No chills, No diaphoresis, No fever; weakness EENTM: No blurred vision, No throat pain Respiratory: No cough, No short of breath Cardiovascular: No chest pain Gastrointestinal: No abdominal pain, No diarrhea, No melena; nausea, vomiting Genitourinary: No dysuria, No frequency : No Skin: No pruritus, No rash Psychiatric/Neurological: Anxiety; Denies Numbness, Denies Weakness Physical Exam-General Problems Physical Exam Vital Signs Vital Signs - First Documented 05/17/22 07:50 Temp 35.2 Pulse 122 Resp 20 B/P (MAP) 119/57 (77) Pulse Ox 99 O2 Delivery Room Air Capillary Refill : Greater Than 3 Seconds General Appearance: WD/WN, other (slightly anxious) Eyes: Bilateral Eye PERRL, Bilateral Eye EOMI HEENT: PERRL/EOMI, TMs normal, other (dry MMs) Neck: non-tender, supple Respiratory: chest non-tender, no respiratory distress, no accessory muscle use Cardiovascular: regular rate, rhythm, no gallop, no JVD Peripheral Pulses: 2+ Radial Pulses (R), 2+ Radial Pulses (L) Gastrointestinal: non tender, soft; No distended, No guarding; tenderness (mild RLQ TTP) Rectal: deferred Back: no CVA tenderness, no vertebral tenderness Extremities: normal range of motion, non-tender, no calf tenderness Neurologic/Psychiatric: alert, oriented x 3, other (anxious) Skin: warm/dry, jaundice Lymphatic: no adenopathy Data Review Labs Laboratory Tests 05/17/22 08:05: White Blood Count 12.2H, Red Blood Count 4.94, Hemoglobin 13.9, Hematocrit 44, Mean Corpuscular Volume 89, Mean Corpuscular Hemoglobin 28, Mean Corpuscular Hemoglobin Concent 32, Red Cell Distribution Width 18.6H, Platelet Count 255, Mean Platelet Volume 11.2, Immature Granulocyte % (Auto) 1, Neutrophils (%) (Auto) 66, Lymphocytes (%) (Auto) 20, Monocytes (%) (Auto) 11, Eosinophils (%) (Auto) 1, Basophils (%) (Auto) 1, Neutrophils # (Auto) 8.0H, Lymphocytes # (Auto) 2.5, Monocytes # (Auto) 1.4H, Eosinophils # (Auto) 0.1, Basophils # (Auto) 0.1, Immature Granulocyte # (Auto) 0.1, Prothrombin Time 19.2H, INR Comment 1.6H, Activated Partial Thromboplast Time 30, Sodium Level 141, Potassium Level 5.3H, Chloride Level 108H, Carbon Dioxide Level 12L, Anion Gap 21H, Blood Urea Nitrogen 31H, Creatinine 1.46H, Estimat Glomerular Filtration Rate 39, BUN/Creatinine Ratio 21, Glucose Level 76, Calcium Level 11.0H, C orrected Calcium 10.9H, Magnesium Level 2.0, Total Bilirubin 6.3H, Aspartate Amino Transf (AST/SGOT) 60H, Alanine Aminotransferase (ALT/SGPT) 52, Alkaline Phosphatase 101, Troponin I 0.066H, B-Type Natriuretic Peptide 2521.2H, Total Protein 7.0, Albumin 4.1, Lipase 28 05/17/22 08:21: Influenza Type A (RT-PCR) Not Detected, Influenza Type B (RT-PCR) Not Detected, SARS-CoV-2 RNA (RT-PCR) Not Detected 05/17/22 09:55: Troponin I 0.100H 05/17/22 10:56: Glucometer 32*L 05/17/22 11:06: Glucometer 192H 05/17/22 11:35: Blood Gas Puncture Site RIGHT RADIAL, Blood Gas Patient Temperature 35.2, Arterial Blood pH 7.32*L, Arterial Blood Partial Pressure CO2 18*L, Arterial Blood Partial Pressure O2 105H, Arterial Blood HCO3 9*L, Arterial Blood Total CO2 9.9*L, Arterial Blood Oxygen Saturation 98, Arterial Blood Base Excess - 16.2L, Anupam Test YES-POS, Blood Gas Ventilator Setting NO, Blood Gas Inspired Oxygen 2 05/17/22 12:20: Sodium Level 143, Potassium Level 4.7, Chloride Level 106, Carbon Dioxide Level 14L, Anion Gap 23H, Blood Urea Nitrogen 30H, Creatinine 1.70H, Estimat Glomerular Filtration Rate 32, BUN/Creatinine Ratio 18, Glucose Level 112H, Lactic Acid Level 11.80*H, Calcium Level 10.1, Beta-Hydroxybutyrate (Chem panel) 0.27, Procalcitonin 0.21H, Thyroid Stimulating Hormone (TSH) 4.28 05/17/22 12:26: Glucometer 106 Assessment/Plan Assessment/Plan Assessment/Plan Nausea and vomiting Dehydration Afib with RVR Heart Failure with LVEF 10-15% Hyperbilirubinemia - 6.3 Lactic acidosis - 11.80 UTI LUIS Placed central line in right internal jugular and right radial arterial line Continue conservative measures Continue IV Abx Cardiology and eICU on board ENRRIQUE BUCKLEY DO 05/18/22 1337: History of Present Illness History of Present Illness History of Present Illness 71 year old femal with nausea and vomiting which began yesterday. Having hard time taking medications and eating/drinking. Patient just not feeling well. Nothing making better or worse. Extensive hear history. Found to have UTI. Lactic acid elevated and troponin. Bilirubin has been elevated, but not this high she and family state. Had arterial line already placed, but pulled out. Unsuccessful attempt at placing PICC line. Allergies and Home Medications Allergies Coded Allergies: codeine (Verified Allergy, Mild, HALLUCINATIONS, 01/18/17) Patient Home Medication List Home Medication List Reviewed: Yes Amiodarone HCl (Amiodarone HCl) 200 Mg Tablet, 400 MG PO DAILY, (Reported) Entered as Reported by: KIMBERLY BURRIS on 05/18/221113 Last Action: Reviewed Apixaban (Eliquis) 5 Mg Tablet, 5 MG PO BID, (Reported) Entered as Reported by: KIMBERLY BURRIS on 02/16/221222 Last Action: Reviewed Carvedilol (Carvedilol) 25 Mg Tablet, 12.5 MG PO BID, (Reported) Entered as Reported by: KIMBERLY BURRIS on 05/18/221113 Last Action: Reviewed Cyanocobalamin (Vitamin B-12) (Vitamin B-12) 1,000 Mcg Tablet, 1,000 MCG PO DAILY, (Reported) Entered as Reported by: KIMBERLY BURRIS on 02/16/221222 Last Action: Reviewed Empagliflozin (Jardiance) 10 Mg Tablet, 10 MG PO DAILY, (Reported) Entered as Reported by: KIMBERLY BURRIS on 05/18/221113 Last Action: Reviewed Fish Oil/Dha/Epa (Fish Oil 1,200 mg Fish Oil) 1,200 Mg-144 Mg-216 Mg Capsule, 1 EACH PO DAILY, (Reported) Entered as Reported by: KIMBERLY BURRIS on 02/16/221222 Last Action: Reviewed Furosemide (Furosemide) 40 Mg Tablet, 40 MG PO DAILY, (Reported) Entered as Reported by: KIMBERLY BURRIS on 05/18/221113 Last Action: Reviewed Letrozole (Letrozole) 2.5 Mg Tablet, 2.5 MG PO DAILY, (Reported) Entered as Reported by: KIMBERLY BURRIS on 02/16/221222 Last Action: Reviewed Meclizine HCl (Meclizine HCl) 25 Mg Tablet, 25 MG PO DAILY, (Reported) Entered as Reported by: KIMBERLY BURRIS on 02/16/221222 Last Action: Reviewed Potassium Gluconate (Potassium Gluconate 595 MG) 595 Mg (99 Mg) Tablet, 99 MG PO DAILY PRN for MUSCLE CRAMPS, (Reported) Entered as Reported by: KIMBERLY BURRIS on 05/18/221113 Last Action: Reviewed Spironolactone (Spironolactone) 25 Mg Tablet, 12.5 MG PO DAILY, (Reported) Entered as Reported by: KIMBERLY BURRIS on 05/18/221113 Last Action: Reviewed Venlafaxine HCl (Venlafaxine HCl ER) 150 Mg Cap.er.24h, 150 MG PO DAILY, (Reported) Entered as Reported by: KIMBERLY BURRIS on 02/16/221222 Last Action: Reviewed Discontinued Medications Amiodarone HCl (Amiodarone HCl) 200 Mg Tablet, 100 MG PO DAILY, (Reported) Discontinued Reason: No Longer Taking Entered as Reported by: KIMBERLY BURRIS on 02/16/221222 Last Action: Discontinued Carvedilol (Carvedilol) 25 Mg Tablet, 12.5 MG PO BID Discontinued Reason: No Longer Taking Prescribed by: OSMANY NAILS on 02/21/221513 Last Action: Discontinued Empagliflozin (Jardiance) 10 Mg Tablet, 10 MG PO DAILY Discontinued Reason: Duplicate Order Prescribed by: OSMANY NAILS on 02/21/221513 Last Action: Discontinued Furosemide (Furosemide) 40 Mg Tablet, 80 MG PO DAILY Discontinued Reason: Duplicate Order Prescribed by: OSMANY NAILS on 02/21/221516 Last Action: Discontinued Sacubitril/Valsartan (Entresto 24 mg-26 mg Tablet) 24 Mg-26 Mg Tablet, 1 TAB PO BID Discontinued Reason: No Longer Taking Prescribed by: OSMANY NAILS on 02/21/221513 Last Action: Discontinued Spironolactone (Spironolactone) 25 Mg Tablet, 12.5 MG PO DAILY Discontinued Reason: Duplicate Order Prescribed by: OSMANY NAILS on 02/21/221513 Last Action: Discontinued Past Egsxzud-Ttmkfj-Hyyjmy Hx Reviewed Nursing Assessment Reviewed/Agree w Nursing PMH: Yes Family Medical History Significant Family History: No Pertinent Family Hx Review of Systems-General Constitutional: No chills, No diaphoresis; weakness Gastrointestinal: No abdominal pain, No diarrhea, No melena; nausea, vomiting Genitourinary: No dysuria, No frequency : No Skin: No pruritus, No rash Psychiatric/Neurological: Anxiety; Denies Depressed, Denies Emotional Problems, Denies Numbness, Denies Weakness All Other Systems Reviewed Negative Unless Noted: Yes (Negative excepted noted.) Physical Exam-General Problems Physical Exam General Appearance: WD/WN, other (slightly anxious) HEENT: PERRL/EOMI, normal ENT inspection, other (dry MMs) Neck: non-tender, supple Respiratory: chest non-tender, no respiratory distress, no accessory muscle use Cardiovascular: regular rate, rhythm, no JVD Gastrointestinal: non tender, soft; No distended, No guarding Rectal: deferred Back: no CVA tenderness, no vertebral tenderness Extremities: normal range of motion, non-tender Neurologic/Psychiatric: alert, oriented x 3, other (anxious) Skin: warm/dry, jaundice Lymphatic: no adenopathy Assessment/Plan Assessment/Plan Assessment/Plan Nausea and vomiting Dehydration Afib with RVR Heart Failure with LVEF 10-15% Hyperbilirubinemia - 6.3 Lactic acidosis UTI LUIS Placed central line in right internal jugular and right radial arterial line Continue IV Abx IV fluid Repeat labs in am Do not feel at this time any abdominal pathology, as abdomen is not tender on my exam. Cardiology and eICU consulted Supervisory-Addendum Brief Verification & Attestation Participated in pt care: history, MDM, physical Personally performed: exam, history, MDM, supervision of care Care discussed with: Medical Student Procedures: n/a Results interpretation: Verified all documentation Verification and Attestation of Medical Student E/M Service A medical student performed and documented this service in my presence. I reviewed and verified all information documented by the medical student and made modifications to such information, when appropriate. I personally performed the physical exam and medical decision making. Enrrique Buckley, May 17, 2022,19:39 NICHOLAS MORALES May 17, 2022 14:56 ENRRIQUE BUCKLEY DO May 18, 2022 13:37
--- NOTE | 2022-05-17 15:14 | Diagnostic Imaging Report ---
PROCEDURE: US Abdomen, limited. TECHNIQUE: Multiple realtime grayscale images were obtained over the abdomen in various projections. INDICATION: Elevated bilirubin. Patient has had prior cholecystectomy in 1992. FINDINGS: The liver is normal in size at 14.9 cm. The portal vein is patent and shows normal direction of flow. The gallbladder is surgically absent. No biliary ductal dilatation is identified. The pancreas is obscured by bowel gas. The proximal aorta is nonaneurysmal. The mid and distal aorta are obscured. The upper IVC is unremarkable. The right kidney is 10.2 cm in length. There is an approximately 13 mm renal cyst. No calculi are detected. There is no hydronephrosis. There is no ascites. IMPRESSION: Limited study due to overlying bowel gas. The patient status post cholecystectomy. No acute feature is detected. Dictated by: Dictated on workstation # [id number]
[2022-05-17] MEDS ORDERED: DEXTROSE 24 GM ORAL GEL TUBE PO NR (15:45)
--- NOTE | 2022-05-17 16:28 | Diagnostic Imaging Report ---
INDICATION: Central venous catheter assessment. TECHNIQUE/COMPARISON: An AP view of the chest was obtained with comparison made to the study of earlier this same day. FINDINGS: There has been placement of a right jugular central venous catheter with the tip projecting over the lower superior vena cava. Defibrillator pads overlie the chest and partially obscure the catheter tip. There is cardiomegaly with mild pulmonary venous congestion. No pneumothorax is identified. IMPRESSION: No evidence of pneumothorax post right venous catheter placement. Catheter tip reaches the lower superior vena cava. Dictated by: Dictated on workstation # [id number]
[2022-05-17] MEDS: NOREPINEPHRINE 8 MG/250 ML 250 ML IV SCH (16:49)
[2022-05-17] MEDS: DOBUTamine DRIP 250 ML IV SCH ×2 (16:49→20:55)
[2022-05-17 17:28] LABS: BILIRUBIN,URINE 2+ (NEGATIVE); CLARITY,URINE CLOUDY; COLOR,URINE YELLOW; GLUCOSE, URINE (UA) NEGATIVE (NEGATIVE); KETONES,URINE NEGATIVE (NEGATIVE); LEUKOCYTE ESTERASE ,URINE TRACE (NEGATIVE); NITRITE,URINE POSITIVE (NEGATIVE); PROTEIN,URINE 3+ (NEGATIVE)
[2022-05-17 17:45] LABS: BACTERIA,URINE LARGE /HPF; RBC,URINE TNTC /HPF; WBC,URINE >100 /HPF
[2022-05-17] MEDS: SODIUM BICARBONATE 8.4% SYR 150 MEQ in D5W 1000 ML IV SOLUTION 1,000 ML IV SCH ×2 (19:50→23:36)
[2022-05-17] MEDS: PIPERACILLIN SODIUM/TAZOBACTAM 4.5 GM in NS (IVPB) 100 ML IV SCH (19:51)
[2022-05-17] MEDS ORDERED: inSUlin ASPART (NovoLOG) 1 UNIT/0.01 ML (CHARGE PER UNIT) SC SCH (20:45)
[2022-05-17] MEDS: APIXABAN 5 MG (ELIQUIS) TABLET PO SCH (20:54)
[2022-05-17] MEDS: DOCUSATE SODIUM 100 MG (COLACE) CAP PO SCH (20:54)
[2022-05-17] MEDS: SENNOSIDES 8.6 MG (SENOKOT) TAB PO SCH (20:54)
[2022-05-17] MEDS: ACETAMINOPHEN 325 MG TABLET PO PRN (21:04)
[2022-05-18] MEDS: DOBUTamine DRIP 250 ML IV SCH ×4 (00:43→23:07)
[2022-05-18] MEDS: NOREPINEPHRINE 8 MG/250 ML 250 ML IV SCH ×3 (01:46→23:07)
[2022-05-18] MEDS: PIPERACILLIN SODIUM/TAZOBACTAM 4.5 GM in NS (IVPB) 100 ML IV SCH ×3 (03:26→19:32)
[2022-05-18] MEDS: NS IV 1000 ML 1,000 ML IV SCH ×2 (03:26→15:27)
--- NOTE | 2022-05-18 04:42 | OPERATIVE REPORT ---
DATE OF SERVICE: 05/17/2022 PREOPERATIVE DIAGNOSIS: Lactic acidosis poor venous access. POSTOPERATIVE DIAGNOSIS: Lactic acidosis poor venous access. PROCEDURES PERFORMED: Ultrasound-guided right internal jugular vein central line placement and ultrasound right radial arterial line placement. SURGEON: Kyaw Berkowitz DO. ANESTHESIA: Local. ESTIMATED BLOOD LOSS: Minimal. COMPLICATIONS: None. INDICATIONS: The patient is a 71-year-old female admitted to the intensive care unit. She had attempted PICC line, which was unsuccessful. She had arterial line that was pulled out. The patient needing central venous access and arterial line. Risks and benefits were discussed with family and the patient who understand and wished to proceed. Consent was signed and is on chart. DESCRIPTION OF PROCEDURE: The patient was prepped and draped in sterile fashion. Ultrasound was used to isolate the right internal jugular vein. Local anesthetic was infiltrated. The right internal jugular vein was then accessed under ultrasound guidance. Dark nonpulsatile blood was withdrawn. A guidewire was inserted through the needle and the needle was removed. An 11 blade scalpel was used to make a small skin incision. Dilator was then advanced over the wire and the dilator was removed. The triple lumen catheter was then advanced over the wire and the wire was removed. All ports were accessed and flushed without difficulty. It was sutured in place with 2-0 silk suture. The area was washed and dried and sterile bandages were applied. Chest x-ray pending. The right radial artery was then prepped and draped in sterile fashion. Ultrasound was used to isolate the right radial artery using a 20-gauge arterial catheter. This was inserted until a flash of pulsatile bright red blood return. The guidewire was inserted and the catheter was advanced and the needle and wire were removed. Pulsatile blood was withdrawn. This was then attached. Using a 2-0 silk suture, this was secured in a simple interrupted fashion. Sterile bandages were applied, washed and dried. The patient tolerated the procedure well without any complications. Chest x-ray pending. Job ID: [id number] DocumentID: [id number] Dictated Date: 05/17/2022 21:00:37 Assembly Inspector Date: 05/18/2022 04:41:00 Dictated By: KYAW BERKOWITZ DO [facility]
[2022-05-18 05:05] LABS: BASOPHILS % (AUTO) 0 % (0-10); EOSINOPHILS % (AUTO) 0 % (0-10); HEMATOCRIT 34 % (35-52); HEMOGLOBIN 10.7 g/dL (11.5-16.0); LYMPHOCYTES # (AUTO) 0.6 10^3/uL (1.0-4.0); LYMPHOCYTES % (AUTO) 3 % (12-44); MEAN CORPUSCULAR HEMOGLOBIN 28 pg (25-34); MEAN CORPUSCULAR HGB CONC 32 g/dL (32-36); MEAN CORPUSCULAR VOLUME 88 fL (80-99); MEAN PLATELET VOLUME 11.5 fL (9.0-12.2); MONOCYTES # (AUTO) 1.2 10^3/uL (0.0-1.0); MONOCYTES % (AUTO) 7 % (0-12); NEUTROPHILS # (AUTO) 14.8 10^3/uL (1.8-7.8); NEUTROPHILS % (AUTO) 88 % (42-75); PLATELET COUNT 159 10^3/uL (130-400); WHITE BLOOD COUNT 16.7 10^3/uL (4.3-11.0)
[2022-05-18 05:07] LABS: ALBUMIN 3.2 GM/DL (3.2-4.5); POTASSIUM 4.1 MMOL/L (3.6-5.0)
[2022-05-18 05:08] LABS: CALCIUM 8.9 MG/DL (8.5-10.1)
[2022-05-18 05:09] LABS: TOTAL PROTEIN 5.5 GM/DL (6.4-8.2)
[2022-05-18 05:13] LABS: CREATININE SERUM 1.88 MG/DL (0.60-1.30); PHOSPHORUS 3.1 MG/DL (2.3-4.7)
[2022-05-18] MEDS: KCL 20 MEQ TAB (K-DUR) PO SCH (05:15)
[2022-05-18] MEDS: POTASSIUM CL 10MEQ/50ML IVPB 50 ML IV SCH (05:15)
[2022-05-18 05:16] LABS: MAGNESIUM 1.8 MG/DL (1.6-2.4)
[2022-05-18] MEDS: MAGNESIUM 1 GM/100 ML IVPB 100 ML IV SCH (05:19)
[2022-05-18 06:14] LABS: BAND NEUTROPHILS 2 %; LYMPHOCYTES % (MANUAL) 5 %; MONOCYTES % (MANUAL) 5 %; NEUTROPHILS % (MANUAL) 88 %
[2022-05-18 06:15] LABS: ANISOCYTOSIS SLIGHT; BURR CELLS SLIGHT; ELLIPT/OVALOCYTES SLIGHT
--- NOTE | 2022-05-18 07:31 | Progress Note - Surgery ---
NICHOLAS MORALES 05/18/22 0731: Subjective Date Seen by a Provider: May 18, 2022 Time Seen by a Provider: 07:00 Subjective/Events-last exam Pt resting comfortably this morning. States her nausea is gone and she has been passing flatus. Denies a bowel movement since admission. She has not had anything to eat yet due to lack of appetite. She denies fever, chills, sweats, chest pain, shortness of breath, and abdominal pain. She denies hx of liver problems. Review of Systems General: No Chills, No Night Sweats HEENT: No Head Aches, No Visual Changes Pulmonary: No Dyspnea, No Cough Cardiovascular: No: Chest Pain, Edema Gastrointestinal: No: Nausea, Vomiting, Abdominal Pain, Diarrhea, Constipation Genitourinary: No Dysuria, No Frequency, No Hematuria Musculoskeletal: No: leg pain Neurological: No: Weakness, Numbness Focused Exam Lactate Level 05/17/22 23:00: Lactic Acid Level 8.59*H 05/18/22 00:42: Lactic Acid Level 6.67*H 05/18/22 04:46: Lactic Acid Level 3.78*H Lactic Acid Level Laboratory Tests Test 05/18/22 04:46 Lactic Acid Level 3.78 MMOL/L (0.50-2.00) *H Objective Exam Vital Signs Date Time Temp Pulse Resp B/P (MAP) Pulse Ox O2 Delivery O2 Flow Rate FiO2 05/18/22 06:00 115 16 98 Nasal Cannula 2.00 05/18/22 05:00 113 16 99 Nasal Cannula 2.00 05/18/22 04:00 111 16 99 Nasal Cannula 2.00 05/18/22 03:47 36.9 Nasal Cannula 2.00 05/18/22 03:40 100 Nasal Cannula 2.00 05/18/22 03:23 36.6 05/18/22 03:00 109 16 98 Nasal Cannula 2.00 05/18/22 02:00 108 20 98 Nasal Cannula 2.00 05/18/22 01:00 110 17 100 Nasal Cannula 2.00 05/18/22 01:00 110 05/18/22 00:43 103 116/50 05/18/22 00:42 116/50 05/18/22 00:00 103 28 99 Nasal Cannula 2.00 05/18/22 00:00 Nasal Cannula 2.00 05/17/22 23:55 36.3 05/17/22 23:40 100 Nasal Cannula 2.00 05/17/22 23:00 101 28 100 Nasal Cannula 2.00 05/17/22 23:00 101 126/53 05/17/22 22:05 98 124/64 05/17/22 22:05 124/64 05/17/22 22:00 99 28 95 Nasal Cannula 2.00 05/17/22 21:00 111 22 100 Nasal Cannula 2.00 05/17/22 20:56 99 127/74 05/17/22 20:55 106 123/52 05/17/22 20:00 98 14 99 Nasal Cannula 2.00 05/17/22 19:51 132/80 05/17/22 19:45 100 Nasal Cannula 2.00 05/17/22 19:30 35.8 05/17/22 19:00 36.3 99 18 100 Nasal Cannula 2.00 05/17/22 19:00 98 05/17/22 18:00 99 31 100 Nasal Cannula 2.00 05/17/22 17:22 36.3 05/17/22 17:00 90 24 94 Nasal Cannula 2.00 05/17/22 16:55 Nasal Cannula 2.00 05/17/22 16:49 88/46 05/17/22 16:49 88/46 05/17/22 16:45 90 24 99 Nasal Cannula 2.00 05/17/22 16:30 90 25 100 Nasal Cannula 2.00 05/17/22 16:10 36.0 05/17/22 15:15 92 19 104/61 (75) 93 Nasal Cannula 2.00 05/17/22 15:00 91 85/70 (75) 100 Nasal Cannula 2.00 05/17/22 13:45 96 111/78 (89) 96 Nasal Cannula 2.00 05/17/22 13:00 96 111/78 (89) 96 Nasal Cannula 2.00 05/17/22 12:13 35.0 05/17/22 12:03 98 05/17/22 12:00 98 113/86 (95) 97 Nasal Cannula 2.00 05/17/22 11:40 Nasal Cannula 2.00 05/17/22 11:30 93 93/69 (77) 98 Nasal Cannula 2.00 05/17/22 11:15 93 37 96/72 (80) 97 Nasal Cannula 2.00 05/17/22 11:00 Nasal Cannula 2.00 05/17/22 11:00 98 44 119/95 (103) 98 Nasal Cannula 2.00 05/17/22 10:45 96 24 117/81 (93) 99 Room Air 05/17/22 10:40 34.4 05/17/22 10:40 Nasal Cannula 2.00 05/17/22 10:38 104 05/17/22 10:30 103 117/81 (93) 81 Room Air 05/17/22 10:15 101 16 107/86 99 Room Air 05/17/22 09:15 100 112/87 05/17/22 08:56 111 94/43 05/17/22 07:50 35.2 122 20 119/57 (77) 99 Room Air I & O 05/18/22 07:00 Intake Total 2542.5 ml Output Total 740 ml Balance 1802.5 ml Capillary Refill : Less Than 3 Seconds General Appearance: No Apparent Distress, Obese HEENT: PERRL/EOMI, Pharynx Normal, Moist Mucous Membranes Neck: Normal Inspection, Non Tender, Supple Respiratory: Chest Non Tender, Lungs Clear, Normal Breath Sounds, No Accessory Muscle Use, No Respiratory Distress Cardiovascular: No Edema, No JVD, Normal Peripheral Pulses, Tachycardia Peripheral Pulses: 2+ Dorsalis Pedis (R), 2+ Left Dors-Pedis (L), 2+ Radial Pulses (R), 2+ Radial Pulses (L) Gastrointestinal: normal bowel sounds, non tender, soft; No distended, No guarding Extremity: Normal Inspection, Non Tender, No Calf Tenderness, No Pedal Edema Neurologic/Psychiatric: Alert, Oriented x3, Normal Mood/Affect, Motor Weakness Skin: Warm/Dry, Jaundice Lymphatic: No Adenopathy Results Lab Laboratory Tests 05/17/22 08:05: White Blood Count 12.2H, Red Blood Count 4.94, Hemoglobin 13.9, Hematocrit 44, Mean Corpuscular Volume 89, Mean Corpuscular Hemoglobin 28, Mean Corpuscular Hemoglobin Concent 32, Red Cell Distribution Width 18.6H, Platelet Count 255, Mean Platelet Volume 11.2, Immature Granulocyte % (Auto) 1, Neutrophils (%) (Auto) 66, Lymphocytes (%) (Auto) 20, Monocytes (%) (Auto) 11, Eosinophils (%) (Auto) 1, Basophils (%) (Auto) 1, Neutrophils # (Auto) 8.0H, Lymphocytes # (Auto) 2.5, Monocytes # (Auto) 1.4H, Eosinophils # (Auto) 0.1, Basophils # (Auto) 0.1, Immature Granulocyte # (Auto) 0.1, Prothrombin Time 19.2H, INR Comment 1.6H, Activated Partial Thromboplast Time 30, Sodium Level 141, Potassium Level 5.3H, Chloride Level 108H, Carbon Dioxide Level 12L, Anion Gap 21H, Blood Urea Nitrogen 31H, Creatinine 1.46H, Estimat Glomerular Filtration Rate 39, BUN/Creatinine Ratio 21, Glucose Level 76, Calcium Level 11.0H, Corrected Calcium 10.9H, Magnesium Level 2.0, Total Bilirubin 6.3H, Aspartate Amino Transf (AST/SGOT) 60H, Alanine Aminotransferase (ALT/SGPT) 52, Alkaline Phosphatase 101, Troponin I 0.066H, B-Type Natriuretic Peptide 2521.2H, Total Pr otein 7.0, Albumin 4.1, Lipase 28, Parathyroid Hormone (Intact) 261.7H, Calcium (PTH Intact) 10.6H 05/17/22 08:21: Influenza Type A (RT-PCR) Not Detected, Influenza Type B (RT-PCR) Not Detected, SARS-CoV-2 RNA (RT-PCR) Not Detected 05/17/22 09:55: Troponin I 0.100H 05/17/22 10:56: Glucometer 32*L 05/17/22 11:06: Glucometer 192H 05/17/22 11:35: Blood Gas Puncture Site RIGHT RADIAL, Blood Gas Patient Temperature 35.2, Arterial Blood pH 7.32*L, Arterial Blood Partial Pressure CO2 18*L, Arterial Blood Partial Pressure O2 105H, Arterial Blood HCO3 9*L, Arterial Blood Total CO2 9.9*L, Arterial Blood Oxygen Saturation 98, Arterial Blood Base Excess - 16.2L, Anupam Test YES-POS, Blood Gas Ventilator Setting NO, Blood Gas Inspired Oxygen 2 05/17/22 12:20: Sodium Level 143, Potassium Level 4.7, Chloride Level 106, Carbon Dioxide Level 14L, Anion Gap 23H, Blood Urea Nitrogen 30H, Creatinine 1.70H, Estimat Glomerular Filtration Rate 32, BUN/Creatinine Ratio 18, Glucose Level 112H, Lactic Acid Level 11.80*H, Calcium Level 10.1, Beta-Hydroxybutyrate (Chem panel) 0.27, Procalcitonin 0.21H, Thyroid Stimulating Hormone (TSH) 4.28, Total Cortisol 57.7H 05/17/22 12:26: Glucometer 106 05/17/22 15:10: Glucometer 69L 05/17/22 15:40: Glucometer 55*L 05/17/22 16:28: Glucometer 48*L 05/17/22 16:37: Lactic Acid Level 12.45*H, Troponin I 0.265H 05/17/22 17:07: Glucometer 136H 05/17/22 17:20: Urine Color YELLOW, Urine Clarity CLOUDY, Urine pH 6.0, Urine Specific [place] >=1.030, Urine Protein 3+H, Urine Glucose (UA) NEGATIVE, Urine Ketones NEGATIVE, Urine Nitrite POSITIVEH, Urine Bilirubin 2+H, Urine Urobilinogen 2.0, Urine Leukocyte Esterase TRACEH, Urine RBC (Auto) 3+H, Urine RBC TNTCH, Urine WBC >100H, Urine Squamous Epithelial Cells 2-5, Urine Crystals NONE, Urine Bacteria LARGEH, Urine Casts NONE, Urine Mucus NEGATIVE, Urine Culture Indicated YES 05/17/22 18:02: Glucometer 180H 05/17/22 18:37: Lactic Acid Level 12.53*H 05/17/22 18:59: Glucometer 192H 05/17/22 20:10: Lactic Acid Level 11.39*H 05/17/22 20:11: Glucometer 277H 05/17/22 22:53: Glucometer 356H 05/17/22 23:00: Lactic Acid Level 8.59*H 05/18/22 00:42: Lactic Acid Level 6.67*H 05/18/22 00:47: Glucometer 274H 05/18/22 02:24: Glucometer 261H 05/18/22 04:46: White Blood Count 16.7H, Red Blood Count 3.83, Hemoglobin 10.7#L, Hematocrit 34L , Mean Corpuscular Volume 88, Mean Corpuscular Hemoglobin 28, Mean Corpuscular Hemoglobin Concent 32, Red Cell Distribution Width 17.9H, Platelet Count 159, Mean Platelet Volume 11.5, Immature Granulocyte % (Auto) 1, Neutrophils (%) (Auto) 88H, Lymphocytes (%) (Auto) 3L, Monocytes (%) (Auto) 7, Eosinophils (%) (Auto) 0, Basophils (%) (Auto) 0, Neutrophils # (Auto) 14.8H, Lymphocytes # (Auto) 0.6L, Monocytes # (Auto) 1.2H, Eosinophils # (Auto) 0.0, Basophils # (Auto) 0.0, Immature Granulocyte # (Auto) 0.2H, Neutrophils % (Manual) 88, Lymphocytes % (Manual) 5, Monocytes % (Manual) 5, Band Neutrophils 2, Anisocytosis SLIGHT, [place] Cells SLIGHT, Elliptocytes SLIGHT, Sodium Level 137, Potassium Level 4.1, Chloride Level 103, Carbon Dioxide Level 19L, Anion Gap 15H , Blood Urea Nitrogen 36H, Creatinine 1.88H, Estimat Glomerular Filtration Rate 29, BUN/Creatinine Ratio 19, Glucose Level 207H, Lactic Acid Level 3.78*H, Calcium Level 8.9, Corrected Calcium 9.5, Phosphorus Level 3.1, Magnesium Level 1.8, Total Bilirubin 7.0H, Aspartate Amino Transf (AST/SGOT) 90262N, Alanine Aminotransferase (ALT/SGPT) 4623#H, Alkaline Phosphatase 96, Total Protein 5.5L, Albumin 3.2, Procalcitonin 1.08H 05/18/22 04:48: Glucometer 208H 05/18/22 05:52: Glucometer 169H Microbiology 05/17/22 Urine Culture - Preliminary, Resulted Escherichia coli Assessment/Plan Assessment/Plan Assessment/Plan Nausea and vomiting Dehydration Afib with RVR Heart Failure with LVEF 10-15% Hyperbilirubinemia - increased to 7.0 Lactic acidosis - improving. down to 3.78 Transaminitis - AST 54430 - ALT 4623 - potentially due to heart failure vs biliary obstruction. UTI LUIS US was limited due to overlying bowel gas. Showed s/p cholecystectomy. No acute feature was detected. Ordered CT abdomen/pelvis for further evaluation Hold Tylenol due to worsening liver enzymes Continue conservative measures Continue IV Abx Cardiology and eICU on board ENRRIQUE BERKOWITZ DO 05/18/22 9309: Subjective Subjective/Events-last exam Feeling better today. Passing flatus. No abdominal pain. No further n/v. Denies fever sweats chills shortness of breath or chest pain. Objective Exam General Appearance: No Apparent Distress HEENT: PERRL/EOMI, Moist Mucous Membranes Neck: Full Range of Motion, Non Tender, Supple Respiratory: Chest Non Tender, No Accessory Muscle Use, No Respiratory Distress Cardiovascular: No JVD, Tachycardia Gastrointestinal: non tender, soft Extremity: Normal Inspection, Non Tender, No Calf Tenderness Neurologic/Psychiatric: Alert, Oriented x3, Normal Mood/Affect Skin: Warm/Dry, Jaundice Lymphatic: No Adenopathy Assessment/Plan Assessment/Plan Assessment/Plan Nausea and vomiting Dehydration Afib with RVR Heart Failure with LVEF 10-15% Hyperbilirubinemia - increased to 7.0 Lactic acidosis - improving. down to 3.78 Transaminitis UTI Shock NSTEMI Will get Ct abd/pelvis to further evalutae Cr elevated will do without contrast cotinue abx likely elevated liver enzymes from shock lactic improving Supervisory-Addendum Brief Verification & Attestation Participated in pt care: history, MDM, physical Personally performed: exam, history, MDM, supervision of care Care discussed with: Medical Student Procedures: n/a Results interpretation: Verified all documentation Verification and Attestation of Medical Student E/M Service A medical student performed and documented this service in my presence. I reviewed and verified all information documented by the medical student and made modifications to such information, when appropriate. I personally performed the physical exam and medical decision making. Enrrique Berkowitz, May 18, 2022,18:19 NICHOLAS MORALES May 18, 2022 07:31 ENRRIQUE BERKOWITZ DO May 18, 2022 18:19
--- NOTE | 2022-05-18 07:38 | Tele-ICU Progress Note ---
Subjective Date Seen by a Provider: May 18, 2022 Time Seen by a Provider: 07:33 Subjective/Events-last exam (Tele-ICU Physician , progress note Service provided via interactive audio and video telecommunications E-CARE system to a patient admitted to ICU bed in [facility]. Available chart/ vitals / labs / Images reviewed H&P is from ER notes Patient's information available about PMH, Shx, Fhx allergy reviewed inEMR. ROS as per chart and RN report Now in ICU, hemodynamically stable Video assessment done using teleICU camera, rest of exam as per RN Discussed with RN. 61 yo F with multiple medical problems CPM with low LVEF 10-15% vomiting, sepsis, on IV vanco/Zosyn, has marked elevation of LFT's [place] 86316, AST 4623, T Bili 7.8. LA 7.8, recent u/s of abd showed absent GB, liver size 14 cm, CT abd does not suggest VILLATORO or cirrhosis. a fib with RVR was on amiodarone now off now on dobutamine @ 5. V rate has been controlled, on IV levo @ 0.3, infusion rate is going down Has new right IJ central line, no PMNTX, CXR from yesterday shows increased HS and congestion, has AICD Awake and alert, on 2 lpm NC now on RA, not working hard to breathe. BP has been ok on IV levo @ 0.3 Sepsis Event Evaluation Height, Weight, BMI Height: 5'8.00" Weight: 230lbs. 0.0oz. 104.602680da; 35.62 BMI Method:Stated Focused Exam Lactate Level 05/17/22 23:00: Lactic Acid Level 8.59*H 05/18/22 00:42: Lactic Acid Level 6.67*H 05/18/22 04:46: Lactic Acid Level 3.78*H Lactic Acid Level Laboratory Tests Test 05/18/22 04:46 Lactic Acid Level 3.78 MMOL/L (0.50-2.00) *H Exam Exam Patient acknowledged, consented, and participated in this virtual visit which was conducted using real time audio/video Vital Signs Date Time Temp Pulse Resp B/P (MAP) Pulse Ox O2 Delivery O2 Flow Rate FiO2 05/18/22 06:00 115 16 98 Nasal Cannula 2.00 05/18/22 05:00 113 16 99 Nasal Cannula 2.00 05/18/22 04:00 111 16 99 Nasal Cannula 2.00 05/18/22 03:47 36.9 Nasal Cannula 2.00 05/18/22 03:40 100 Nasal Cannula 2.00 05/18/22 03:23 36.6 05/18/22 03:00 109 16 98 Nasal Cannula 2.00 05/18/22 02:00 108 20 98 Nasal Cannula 2.00 05/18/22 01:00 110 17 100 Nasal Cannula 2.00 05/18/22 01:00 110 05/18/22 00:43 103 116/50 05/18/22 00:42 116/50 05/18/22 00:00 103 28 99 Nasal Cannula 2.00 05/18/22 00:00 Nasal Cannula 2.00 05/17/22 23:55 36.3 05/17/22 23:40 100 Nasal Cannula 2.00 05/17/22 23:00 101 28 100 Nasal Cannula 2.00 05/17/22 23:00 101 126/53 05/17/22 22:05 98 124/64 05/17/22 22:05 124/64 05/17/22 22:00 99 28 95 Nasal Cannula 2.00 05/17/22 21:00 111 22 100 Nasal Cannula 2.00 05/17/22 20:56 99 127/74 05/17/22 20:55 106 123/52 05/17/22 20:00 98 14 99 Nasal Cannula 2.00 05/17/22 19:51 132/80 05/17/22 19:45 100 Nasal Cannula 2.00 05/17/22 19:30 35.8 05/17/22 19:00 36.3 99 18 100 Nasal Cannula 2.00 05/17/22 19:00 98 05/17/22 18:00 99 31 100 Nasal Cannula 2.00 05/17/22 17:22 36.3 05/17/22 17:00 90 24 94 Nasal Cannula 2.00 05/17/22 16:55 Nasal Cannula 2.00 05/17/22 16:49 88/46 05/17/22 16:49 88/46 05/17/22 16:45 90 24 99 Nasal Cannula 2.00 05/17/22 16:30 90 25 100 Nasal Cannula 2.00 05/17/22 16:10 36.0 05/17/22 15:15 92 19 104/61 (75) 93 Nasal Cannula 2.00 05/17/22 15:00 91 85/70 (75) 100 Nasal Cannula 2.00 05/17/22 13:45 96 111/78 (89) 96 Nasal Cannula 2.00 05/17/22 13:00 96 111/78 (89) 96 Nasal Cannula 2.00 05/17/22 12:13 35.0 05/17/22 12:03 98 05/17/22 12:00 98 113/86 (95) 97 Nasal Cannula 2.00 05/17/22 11:40 Nasal Cannula 2.00 05/17/22 11:30 93 93/69 (77) 98 Nasal Cannula 2.00 05/17/22 11:15 93 37 96/72 (80) 97 Nasal Cannula 2.00 05/17/22 11:00 Nasal Cannula 2.00 05/17/22 11:00 98 44 119/95 (103) 98 Nasal Cannula 2.00 05/17/22 10:45 96 24 117/81 (93) 99 Room Air 05/17/22 10:40 34.4 05/17/22 10:40 Nasal Cannula 2.00 05/17/22 10:38 104 05/17/22 10:30 103 117/81 (93) 81 Room Air 05/17/22 10:15 101 16 107/86 99 Room Air 05/17/22 09:15 100 112/87 05/17/22 08:56 111 94/43 05/17/22 07:50 35.2 122 20 119/57 (77) 99 Room Air I & O 05/18/22 07:00 Intake Total 2542.5 ml Output Total 740 ml Balance 1802.5 ml Height & Weight Height: 5'8.00" Weight: 230lbs. 0.0oz. 104.879882fu; 35.62 BMI Method:Stated General Appearance: No Apparent Distress, Obese HEENT: PERRL/EOMI, Pharynx Normal, Moist Mucous Membranes Neck: Normal Inspection, Non Tender, Supple Respiratory: Chest Non Tender, Lungs Clear, Normal Breath Sounds, No Accessory Muscle Use, No Respiratory Distress, Other (some crackles both bases ) Cardiovascular: No Edema, No JVD, Normal Peripheral Pulses, Tachycardia Capillary Refill: Less Than 3 Seconds Peripheral Pulses: 2+ Dorsalis Pedis (R), 2+ Left Dors-Pedis (L), 2+ Radial Pulses (R), 2+ Radial Pulses (L) Gastrointestinal: normal bowel sounds, non tender, soft; No distended, No guarding Extremity: Normal Inspection, Non Tender, No Calf Tenderness, No Pedal Edema, Pedal Edema (trace ankle edema) Neurologic/Psychiatric: Alert, Oriented x3, Normal Mood/Affect, Motor Weakness Skin: Warm/Dry, Jaundice Lymphatic: No Adenopathy Results Lab Laboratory Tests 05/17/22 08:05 05/17/22 12:20 05/18/22 04:46 Assessment/Plan Assessment/Plan A/P vomiting and feeling generally weak ( elevated bilirubin, s/p cholecystectomy - US liver very high LFT probably from shock liver, pt is DNR/DNI per pt choice,would check for hepatitis b and c A fib RVR - as per cards , off amiodarone, now on IV dobutamine @ 5 - [employer] on Eliquis, rate in 110's HFrEF (04/08/20 echo with LVEF 10-15%, severe diffuse hypokinesis - new ECHO pending Borderline Hypotension - received 500 ml NDS bolus in er LUIS - due to all above - repat labs , follow Hypoglycemia - placed on protocol for relacement S/P LUMPECTOMY ON LEFT SIDE, RT SIDE MASTECTOMY -s/pCHEMO AND RADIATION--DX IN 1980 Critical Care: Critically Ill Patient Time spent with patient (mins): 35 KAREEM ESPINOSA MD May 18, 2022 07:38
[2022-05-18] MEDS: DOCUSATE SODIUM 100 MG (COLACE) CAP PO SCH ×2 (07:47→20:47)
[2022-05-18] MEDS: SENNOSIDES 8.6 MG (SENOKOT) TAB PO SCH ×2 (07:47→20:47)
[2022-05-18] MEDS: SODIUM BICARBONATE 8.4% SYR 150 MEQ in D5W 1000 ML IV SOLUTION 1,000 ML IV SCH ×2 (07:49→17:35)
[2022-05-18] MEDS: APIXABAN 5 MG (ELIQUIS) TABLET PO SCH ×2 (07:49→20:47)
--- NOTE | 2022-05-18 09:06 | Progress Note - Cardiology ---
Cardiology SOAP Progress Note Subjective: Sitting up in bed eating morning meal States she feels much better today No c/o CP, SOB, palpitations No c/o abdominal discomfort or nausea Objective: I&O/Vital Signs 05/18/22 05/18/22 05/18/22 05/18/22 01:00 01:00 02:00 03:00 Pulse 110 110 108 109 Resp 17 20 16 B/P (MAP) Pulse Ox 100 98 98 O2 Delivery Nasal Cannula Nasal Cannula Nasal Cannula O2 Flow Rate 2.00 2.00 2.00 05/18/22 05/18/22 05/18/22 05/18/22 03:23 03:40 03:47 04:00 Temp 36.6 36.9 Pulse 111 Resp 16 B/P (MAP) Pulse Ox 100 99 O2 Delivery Nasal Cannula Nasal Cannula Nasal Cannula O2 Flow Rate 2.00 2.00 2.00 05/18/22 05/18/22 05/18/22 05/18/22 05:00 06:00 07:00 07:39 Pulse 113 115 114 115 Resp 16 16 13 B/P (MAP) Pulse Ox 99 98 98 O2 Delivery Nasal Cannula Nasal Cannula Nasal Cannula O2 Flow Rate 2.00 2.00 2.00 05/18/22 05/18/22 05/18/22 05/18/22 07:44 07:57 08:00 08:00 Temp 36.5 Pulse 116 Resp 14 B/P (MAP) 115/48 Pulse Ox 100 100 O2 Delivery Nasal Cannula Nasal Cannula O2 Flow Rate 2.00 2.00 05/18/22 05/18/22 05/18/22 05/18/22 09:00 10:00 10:53 11:00 Pulse 111 120 118 Resp 23 B/P (MAP) Pulse Ox 100 97 94 O2 Delivery Nasal Cannula Nasal Cannula Nasal Cannula Nasal Cannula O2 Flow Rate 2.00 2.00 2.00 2.00 05/18/22 11:55 Temp 36.0 05/18/22 00:00 Intake Total 692.5 ml Output Total 190 ml Balance 502.5 ml Weight (Pounds): 230 Weight (Ounces): 0.0 Weight (Calculated Kilograms): 104.861409 Constitutional: AAO x 3, well-developed, well-nourished, other (yellowish appearance) Respiratory: No accessory muscle use; chest expansion is symmetric, chest is bilaterally symmetric, other (fair to good, bilateral air entry that is diminished at the bases) Cardiovascular: regular rate-rhythm, S1 and S2, systolic murmur (soft YASSINE at card base) Gastrointestional: No tender; soft; No guarding, No rebound; audible bowel sounds Extremities: No clubbing, No cyanosis; no lower extremity edema bilateral; No significant edema Neurologic/Psychiatric: other (able to move all limbs) Skin: warm/dry, jaundice; No rash on exposed areas, No ulcerations on exposed areas Results/Procedures: Labs Laboratory Tests 05/17/22 15:10: Glucometer 69L 05/17/22 15:40: Glucometer 55*L 05/17/22 16:28: Glucometer 48*L 05/17/22 16:37: Lactic Acid Level 12.45*H, Troponin I 0.265H 05/17/22 17:07: Glucometer 136H 05/17/22 17:20: Urine Color YELLOW, Urine Clarity CLOUDY, Urine pH 6.0, Urine Specific [place] >=1.030, Urine Protein 3+H, Urine Glucose (UA) NEGATIVE, Urine Ketones NEGATIVE, Urine Nitrite POSITIVEH, Urine Bilirubin 2+H, Urine Urobilinogen 2.0, Urine Leukocyte Esterase TRACEH, Urine RBC (Auto) 3+H, Urine RBC TNTCH, Urine WBC >100H, Urine Squamous Epithelial Cells 2-5, Urine Crystals NONE, Urine Bacteria LARGEH, Urine Casts NONE, Urine Mucus NEGATIVE, Urine Culture Indicated YES 05/17/22 18:02: Glucometer 180H 05/17/22 18:37: Lactic Acid Level 12.53*H 05/17/22 18:59: Glucometer 192H 05/17/22 20:10: Lactic Acid Level 11.39*H 05/17/22 20:11: Glucometer 277H 05/17/22 22:53: Glucometer 356H 05/17/22 23:00: Lactic Acid Level 8.59*H 05/18/22 00:42: Lactic Acid Level 6.67*H 05/18/22 00:47: Glucometer 274H 05/18/22 02:24: Glucometer 261H 05/18/22 04:46: White Blood Count 16.7H, Red Blood Count 3.83, Hemoglobin 10.7#L, Hematocrit 34L , Mean Corpuscular Volume 88, Mean Corpuscular Hemoglobin 28, Mean Corpuscular Hemoglobin Concent 32, Red Cell Distribution Width 17.9H, Platelet Count 159, Mean Platelet Volume 11.5, Immature Granulocyte % (Auto) 1, Neutrophils (%) (Auto) 88H, Lymphocytes (%) (Auto) 3L, Monocytes (%) (Auto) 7, Eosinophils (%) (Auto) 0, Basophils (%) (Auto) 0, Neutrophils # (Auto) 14.8H, Lymphocytes # (Auto) 0.6L, Monocytes # (Auto) 1.2H, Eosinophils # (Auto) 0.0, Basophils # (Auto) 0.0, Immature Granulocyte # (Auto) 0.2H, Neutrophils % (Manual) 88, Lymphocytes % (Manual) 5, Monocytes % (Manual) 5, Band Neutrophils 2, Anisocytosis SLIGHT, [place] Cells SLIGHT, Elliptocytes SLIGHT, Sodium Level 137, Potassium Level 4.1, Chloride Level 103, Carbon Dioxide Level 19L, Anion Gap 15H , Blood Urea Nitrogen 36H, Creatinine 1.88H, Estimat Glomerular Filtration Rate 29, BUN/Creatinine Ratio 19, Glucose Level 207H, Lactic Acid Level 3.78*H, Calcium Level 8.9, Corrected Calcium 9.5, Phosphorus Level 3.1, Magnesium Level 1.8, Total Bilirubin 7.0H, Direct Bilirubin 2.1H, Indirect Bilirubin 4.9, Aspar [place]ong Amino Transf (AST/SGOT) 79499O, Alanine Aminotransferase (ALT/SGPT) 4623#H, Alkaline Phosphatase 96, Troponin I 0.347*H, Total Protein 5.5L, Albumin 3.2, Procalcitonin 1.08H 05/18/22 04:48: Glucometer 208H 05/18/22 05:52: Glucometer 169H 05/18/22 07:58: Glucometer 125H 05/18/22 09:59: Glucometer 126H Microbiology 05/17/22 Urine Culture - Preliminary, Resulted Escherichia coli 05/17/22 MRSA Screen - Final, Complete MRSA not isolated A/P: Assessment: Shock: septic and/or cardiogenic - mild troponin elevation due to type 2 ID due to hypotension - requiring pressor support Hepatitis with marked jaundice of undetermined etiology - managed by Hosp and ICU svces PAF - OAC with Eliquis 5mg BID - did not take on 05/15 and 05/16/22 due to n/v, resumed today - has been non-compliant with Amiodarone tx on 05/15 and 05/16/22 d/t n/v - stopped Chronic HFrEF due to NICM (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 Felton showed LVEF 10-15% with severe diffuse hypokinesis. LA and RA dilated. Mod to severe AoR. Mod MR. Mod to severe TR. PASP 50-55 mmHg - She reports she had a sleep study done that was "inconclusive" - she does not use CPAP or supplemental oxygen - managed by Dr. Kirk - AICD - implanted in September 2021 at [facility] (single chamber device) - followed by Dr. Woodward - Echo on 05-17-22: LVEF 20-25%, global hypokinesis of LV, mild to mod MR, PASP 35-40 mmHg LUIS and oliguria/anuria - likely due to ATN due to hypotension HLD - statin tx H/o DVT R leg - OAC with Eliquis H/O Breast Cancer - has had a mastectomy Plan: * Continue iv dobutamine to improve cardiac output * Continue iv Levophed to maintain bp * Continue iv fluids as needed and as tolerated - decrease NS to 60ml/hr * Digoxin to control heart rate and treat heart failure - monitor dig level * Not suitable for bb or NIRALI-inhib/ARB due to low bp * Monitor labs closely * Jaundice of undetermined etiology; Hepatitis of undetermined etiology - management per medical services * Consider transfer to tertiary care center where all pertinent specialities would be available JOSIE WINKLER May 18, 2022 09:06
[2022-05-18] MEDS ORDERED: DIGOXIN 0.125 MG (LANOXIN) TAB PO NR (10:00)
--- NOTE | 2022-05-18 10:46 | Diagnostic Imaging Report ---
EXAMINATION: CT abdomen and pelvis without contrast. TECHNIQUE: Multiple contiguous axial images were obtained through the abdomen and pelvis without the use of intravenous contrast. All CT scans use one or more of the following dose optimizing techniques: automated exposure control, MA and/or KvP adjustment based on patient size and exam type or iterative reconstruction. HISTORY: Elevated bilirubin COMPARISON: 12/24/2016 FINDINGS: Limited views of the lower thorax show small left pleural effusion and underlying atelectasis. Pacemaker is present. The liver is normal without focal lesion. There is no biliary ductal dilation. Gallbladder is absent. Pancreas is normal. There is a new 2.0 cm fluid attenuating lesion in the spleen. Adrenal glands are normal. There is a hemorrhagic cyst in the left kidney. No suspicious renal lesions. There is no hydronephrosis. Bladder is decompressed by Haddad catheter. Bowel is normal in caliber without obstruction or inflammation. No free fluid or air. No abdominal or pelvic lymphadenopathy. Aorta is normal in caliber without aneurysm. There are no suspicious osseus lesions. IMPRESSION: 1. No biliary ductal dilation. 2. New indeterminate cystic lesion in the spleen. Three-month followup MRI abdomen with and without contrast could be performed to ensure stability. Dictated by: Dictated on workstation # [id number]
[2022-05-18] MEDS: inSUlin ASPART (NovoLOG) 1 UNIT/0.01 ML (CHARGE PER UNIT) SC SCH ×3 (10:51→20:47)
[2022-05-18] MEDS ORDERED: FURO40TA4 PO (11:14)
[2022-05-18] MEDS ORDERED: POTA99TA17 PO (11:14)
[2022-05-18] MEDS ORDERED: SPIR25TA5 PO (11:14)
[2022-05-18] MEDS ORDERED: CARV25TA PO (11:14)
[2022-05-18] MEDS ORDERED: EMPA10TA PO (11:14)
[2022-05-18] MEDS ORDERED: AMIO200T65 PO (11:14)
[2022-05-18 11:59] LABS: BILIRUBIN,DIRECT 2.1 MG/DL (0.0-0.3); BILIRUBIN,INDIRECT 4.9 MG/DL
--- NOTE | 2022-05-18 12:09 | Progress Note - Cardiology ---
Cardiology SOAP Progress Note Subjective: n/v have improved no cp or palp or syncope no shortness of breath at rest gen malaise and weakness Objective: I&O/Vital Signs 05/18/22 05/18/22 05/18/22 05/18/22 00:42 00:43 01:00 01:00 Pulse 103 110 110 Resp 17 B/P (MAP) 116/50 116/50 Pulse Ox 100 O2 Delivery Nasal Cannula O2 Flow Rate 2.00 05/18/22 05/18/22 05/18/22 05/18/22 02:00 03:00 03:23 03:40 Temp 36.6 Pulse 108 109 Resp 20 16 B/P (MAP) Pulse Ox 98 98 100 O2 Delivery Nasal Cannula Nasal Cannula Nasal Cannula O2 Flow Rate 2.00 2.00 2.00 05/18/22 05/18/22 05/18/22 05/18/22 03:47 04:00 05:00 06:00 Temp 36.9 Pulse 111 113 115 Resp 16 16 16 B/P (MAP) Pulse Ox 99 99 98 O2 Delivery Nasal Cannula Nasal Cannula Nasal Cannula Nasal Cannula O2 Flow Rate 2.00 2.00 2.00 2.00 05/18/22 05/18/22 05/18/22 05/18/22 07:00 07:39 07:44 07:57 Temp 36.5 Pulse 114 115 Resp 13 B/P (MAP) 115/48 Pulse Ox 98 O2 Delivery Nasal Cannula O2 Flow Rate 2.00 05/18/22 05/18/22 05/18/22 05/18/22 08:00 08:00 09:00 10:00 Pulse 116 111 120 Resp 14 23 26 B/P (MAP) Pulse Ox 100 100 100 97 O2 Delivery Nasal Cannula Nasal Cannula Nasal Cannula Nasal Cannula O2 Flow Rate 2.00 2.00 2.00 2.00 05/18/22 05/18/22 05/18/22 10:53 11:00 11:55 Temp 36.0 Pulse 118 Resp 23 B/P (MAP) Pulse Ox 94 O2 Delivery Nasal Cannula Nasal Cannula O2 Flow Rate 2.00 2.00 05/18/22 00:00 Intake Total 692.5 ml Output Total 190 ml Balance 502.5 ml Weight (Pounds): 230 Weight (Ounces): 0.0 Weight (Calculated Kilograms): 104.853780 Constitutional: AAO x 3, well-developed, well-nourished, other (yellowish appearance) Respiratory: No accessory muscle use; chest expansion is symmetric, chest is bilaterally symmetric, other (fair to good, bilateral air entry that is dimi nished at the bases) Cardiovascular: regular rate-rhythm, S1 and S2, systolic murmur (soft YASSINE at card base) Gastrointestional: No tender; soft; No guarding, No rebound; audible bowel sounds Extremities: No clubbing, No cyanosis; no lower extremity edema bilateral; No significant edema Neurologic/Psychiatric: other (able to move all limbs) Skin: warm/dry, jaundice; No rash on exposed areas, No ulcerations on exposed areas Results/Procedures: Labs Laboratory Tests 05/17/22 12:20: Sodium Level 143, Potassium Level 4.7, Chloride Level 106, Carbon Dioxide Level 14L, Anion Gap 23H, Blood Urea Nitrogen 30H, Creatinine 1.70H, Estimat Glomerular Filtration Rate 32, BUN/Creatinine Ratio 18, Glucose Level 112H, Lactic Acid Level 11.80*H, Calcium Level 10.1, Beta-Hydroxybutyrate (Chem panel) 0.27, Procalcitonin 0.21H, Thyroid Stimulating Hormone (TSH) 4.28, Total Cortisol 57.7H 05/17/22 12:26: Glucometer 106 05/17/22 15:10: Glucometer 69L 05/17/22 15:40: Glucometer 55*L 05/17/22 16:28: Glucometer 48*L 05/17/22 16:37: Lactic Acid Level 12.45*H, Troponin I 0.265H 05/17/22 17:07: Glucometer 136H 05/17/22 17:20: Urine Color YELLOW, Urine Clarity CLOUDY, Urine pH 6.0, Urine Specific [place] >=1.030, Urine Protein 3+H, Urine Glucose (UA) NEGATIVE, Urine Ketones NEGATIVE, Urine Nitrite POSITIVEH, Urine Bilirubin 2+H, Urine Urobilinogen 2.0, Urine Leukocyte Esterase TRACEH, Urine RBC (Auto) 3+H, Urine RBC TNTCH, Urine WBC >100H, Urine Squamous Epithelial Cells 2-5, Urine Crystals NONE, Urine Bacteria LARGEH, Urine Casts NONE, Urine Mucus NEGATIVE, Urine Culture Indicated YES 05/17/22 18:02: Glucometer 180H 05/17/22 18:37: Lactic Acid Level 12.53*H 05/17/22 18:59: Glucometer 192H 05/17/22 20:10: Lactic Acid Level 11.39*H 05/17/22 20:11: Glucometer 277H 05/17/22 22:53: Glucometer 356H 05/17/22 23:00: Lactic Acid Level 8.59*H 05/18/22 00:42: Lactic Acid Level 6.67*H 05/18/22 00:47: Glucometer 274H 05/18/22 02:24: Glucometer 261H 05/18/22 04:46: White Blood Count 16.7H, Red Blood Count 3.83, Hemoglobin 10.7#L, Hematocrit 34L , Mean Corpuscular Volume 88, Mean Corpuscular Hemoglobin 28, Mean Corpuscular Hemoglobin Concent 32, Red Cell Distribution Width 17.9H, Platelet Count 159, Mean Platelet Volume 11.5, Immature Granulocyte % (Auto) 1, Neutrophils (%) (Auto) 88H, Lymphocytes (%) (Auto) 3L, Monocytes (%) (Auto) 7, Eosinophils (%) (Auto) 0, Basophils (%) (Auto) 0, Neutrophils # (Auto) 14.8H, Lymphocytes # (Auto) 0.6L, Monocytes # (Auto) 1.2H, Eosinophils # (Auto) 0.0, Basophils # (Aut o) 0.0, Immature Granulocyte # (Auto) 0.2H, Neutrophils % (Manual) 88, Lymphocy elías % (Manual) 5, Monocytes % (Manual) 5, Band Neutrophils 2, Anisocytosis SLIGHT, Tonio Cells SLIGHT, Elliptocytes SLIGHT, Sodium Level 137, Potassium Level 4.1, Chloride Level 103, Carbon Dioxide Level 19L, Anion Gap 15H, Blood Urea Nitrogen 36H, Creatinine 1.88H, Estimat Glomerular Filtration Rate 29, BUN/Creatinine Ratio 19, Glucose Level 207H, Lactic Acid Level 3.78*H, Calcium Level 8.9, Corrected Calcium 9.5, Phosphorus Level 3.1, Magnesium Level 1.8, To lloyd Bilirubin 7.0H, Direct Bilirubin 2.1H, Indirect Bilirubin 4.9, Aspartate Amino Transf (AST/SGOT) 54513X, Alanine Aminotransferase (ALT/SGPT) 4623#H, Alkaline Phosphatase 96, Total Protein 5.5L, Albumin 3.2, Procalcitonin 1.08H 05/18/22 04:48: Glucometer 208H 05/18/22 05:52: Glucometer 169H 05/18/22 07:58: Glucometer 125H 05/18/22 09:59: Glucometer 126H Microbiology 05/17/22 Urine Culture - Preliminary, Resulted Escherichia coli 05/17/22 MRSA Screen - Final, Complete MRSA not isolated Laboratory Tests 05/17/22 08:05 05/17/22 12:20 05/18/22 04:46 A/P: Assessment: Shock: septic and/or cardiogenic - mild troponin elevation due to type 2 MA due to hypotension - requiring pressor support Hepatitis and marked jaundice of undetermined etiology - managed by Hosp and ICU svces PAF - OAC with Eliquis 5mg BID - did not take on 05/15 and 05/16/22 due to n/v, resumed today - has been non-compliant with Amiodarone tx on 05/15 and 05/16/22 d/t n/v - stopped Chronic HFrEF due to NICM (primarily managed by her derrick engineer Dr Woodward in [place], [place]) - Echocardiogram of 04-08-[address] Felton showed LVEF 10-15% with severe diffuse hypokinesis. LA and RA dilated. Mod to severe AoR. Mod MR. Mod to severe TR. PASP 50-55 mmHg - She reports she had a sleep study done that was "inconclusive" - she does not use CPAP or supplemental oxygen - managed by Dr. Kirk - AICD - implanted in September 2021 at [facility] (single chamber device) - fo llowed by Dr. Woodward - Echo on 05-17-22: LVEF 20-25%, global hypokinesis of LV, mild to mod MR, PASP 35-40 mmHg LUIS and oliguria/anuria - likely due to ATN due to hypotension HLD - statin tx H/o DVT R leg - OAC with Eliquis H/O Breast Cancer - has had a mastectomy Plan: * Continue iv dobutamine to improve cardiac output * Continue iv Levophed to maintain bp * Continue iv fluids as needed and as tolerated - decrease NS to 60ml/hr * Digoxin to control heart rate and treat heart failure - monitor dig level * Not suitable for bb or NIRALI-inhib/ARB due to low bp * Monitor labs closely * Jaundice of undetermined etiology; Hepatitis of undetermined etiology - management per Medical and ICU and Surg svces * I discussed her case with CHAU Tavarez MD FACP FAC CCDS May 18, 2022 12:09
--- NOTE | 2022-05-18 13:42 | Progress Note - Hospitalist ---
MILAGROS ARAUJO 05/18/22 1342: Subjective HPI/CC On Admission Date Seen by Provider: May 18, 2022 Time Seen by Provider: 08:00 Subjective/Events-last exam Pt was awake and in good spirit during interview. She states is feeling better than yesterday w/o any pain. Pt is currently on normal diet and reports having an appetite . She has not had a bowel movement yet since being admitted but reports passage of gas that is accompanied by slight abdominal discomfort due to pressure. Pt denies fever, chills, N/V/D, abdominal pain and swelling. Review of Systems HEENT: No Head Aches Pulmonary: No Dyspnea, No Cough Cardiovascular: No: Chest Pain, Palpitations Gastrointestinal: No: Nausea, Vomiting, Abdominal Pain, Diarrhea, Constipation Neurological: No: Weakness, Numbness Focused Exam Lactate Level 05/17/22 23:00: Lactic Acid Level 8.59*H 05/18/22 00:42: Lactic Acid Level 6.67*H 05/18/22 04:46: Lactic Acid Level 3.78*H Objective Exam Vital Signs Vital Signs Date Time Temp Pulse Resp B/P (MAP) Pulse Ox O2 Delivery O2 Flow Rate FiO2 05/18/22 11:55 36.0 05/18/22 11:00 118 23 94 Nasal Cannula 2.00 Capillary Refill : Less Than 3 Seconds General Appearance: No Apparent Distress Respiratory: Chest Non Tender, Lungs Clear, Normal Breath Sounds Cardiovascular: Regular Rate, Rhythm, No Edema, No Murmur, Normal Peripheral Pulses Gastrointestinal: Normal Bowel Sounds, Non Tender, Soft Rectal: Deferred Extremity: Non Tender, No Calf Tenderness Neurologic/Psychiatric: Alert, Oriented x3 Skin: Normal Color, Warm/Dry Results/Procedures Lab Laboratory Tests 05/18/22 04:46 Patient resulted labs reviewed. Imaging: Reviewed Imaging Report Assessment/Plan Assessment and Plan Assess & Plan/Chief Complaint Septic Shock Secondary to E. Coli UTI absent bacterimia Cardiogenic Shock Ischemic Hepatitis Acute Kidney Injury Type II NSTEMI Lactic Acidosis Hypoglycemia SIRS +: Hypothermic; Tachycardia; Leukocytosis Lactic Acidosis Negative CXR for Pneumonia U/A: + Nitrites; Lekocyte Esterase; WBC > 100 Blood Cultures positive coagulase neg staph consistent with contamination Elevated Cortisol lab consistent with acute stress response R/o Acute Adrenal Insufficiency NE started for Hypotension was discontinue and Dobutamine with continued due to concern for Cardiogenic Shock Elevated LFT's likely due to poor perfusion Ordered Hepatitis Panel r/o viral hepatitis CT Abdomen and Pelvis order due to negative abdominal u/s and abdominal x-ray and rule out missing liver pathologies CT abdomen 05/18 - negative for Biliary duct dilation; positive for splenic cyst Troponin elevated; Repeat Troponin ordered to trend Continue Abx Continue IV Fluids PAF Amiodarone discontinue due to liver function Eliquis HFrEF ECHO Systolic Dyfunction; EF 20-25% Mild to Moderate Mitral Valve Regurgitation Hyperbilirubinemia History of elevated Total Bilirubin Direct and Indirect ordered Indirect Elevated Hemolysis v. Congenital enzyme deficiency OSMANY NAILS MD 05/18/22 1541: Subjective HPI/CC On Admission Time Seen by Provider: 10:05 Objective Exam General Appearance: No Apparent Distress, Obese HEENT: PERRL/EOMI, Pharynx Normal Neck: Normal Inspection, Supple Respiratory: Lungs Clear, No Respiratory Distress Cardiovascular: No Murmur, Tachycardia Gastrointestinal: Normal Bowel Sounds, Non Tender, Soft Extremity: Normal Inspection, Pedal Edema Neurologic/Psychiatric: Alert, Oriented x3, Normal Mood/Affect, Motor Weakness Skin: Warm/Dry, Jaundice Results/Procedures Imaging: Reviewed Imaging Report Assessment/Plan Assessment and Plan Assess & Plan/Chief Complaint Admitted with septic and cardiogenic shock, remains on Levophed and Dobutamine. IV antibiotics for UTI. Multiorgan failure due to shock with LUIS, lactic acidosis, NSTEMI, shock liver. 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 Critical Care: Critically Ill Patient Diagnosis/Problems Diagnosis/Problems (1) Shock Status: Acute (2) E. coli UTI Status: Acute (3) Unconjugated hyperbilirubinemia Status: Acute (4) Shock liver Status: Acute (5) NSTEMI (non-ST elevation myocardial infarction) Status: Acute (6) Acute on chronic HFrEF (heart failure with reduced ejection fraction) Status: Acute (7) Lactic acidosis Status: Acute (8) LUIS (acute kidney injury) Status: Acute Supervisory-Addendum Brief Verification & Attestation Participated in pt care: history, MDM, physical Personally performed: exam, history, MDM, supervision of care Care discussed with: Medical Student Procedures: n/a Results interpretation: Verified all documentation A medical student performed and documented this service in my presence. I revie wed and verified all information documented by the medical student and made modifications to such information, when appropriate. I personally performed the physical exam and medical decision making. MILAGROS ARAUJO May 18, 2022 13:42 OSMANY NAILS MD May 18, 2022 15:41
[2022-05-18] MEDS ORDERED: VANCOMYCIN 1500 MG/NS 500 ML IVPB IV SCH ×2 (14:00)
[2022-05-18 23:03] LABS: HEPATITIS C ANTIBODY C Non-Reactive (Non-Reactive)
[2022-05-19] MEDS: PIPERACILLIN SODIUM/TAZOBACTAM 4.5 GM in NS (IVPB) 100 ML IV SCH ×2 (02:30→10:40)
[2022-05-19 03:53] LABS: BASOPHILS % (AUTO) 0 % (0-10); EOSINOPHILS % (AUTO) 0 % (0-10); HEMATOCRIT 31 % (35-52); HEMOGLOBIN 10.3 g/dL (11.5-16.0); LYMPHOCYTES # (AUTO) 0.8 10^3/uL (1.0-4.0); LYMPHOCYTES % (AUTO) 8 % (12-44); MEAN CORPUSCULAR HEMOGLOBIN 29 pg (25-34); MEAN CORPUSCULAR HGB CONC 33 g/dL (32-36); MEAN CORPUSCULAR VOLUME 87 fL (80-99); MEAN PLATELET VOLUME 10.9 fL (9.0-12.2); MONOCYTES # (AUTO) 0.8 10^3/uL (0.0-1.0); MONOCYTES % (AUTO) 8 % (0-12); NEUTROPHILS # (AUTO) 8.7 10^3/uL (1.8-7.8); NEUTROPHILS % (AUTO) 83 % (42-75); PLATELET COUNT 133 10^3/uL (130-400); WHITE BLOOD COUNT 10.4 10^3/uL (4.3-11.0)
[2022-05-19 04:03] LABS: ALBUMIN 2.7 GM/DL (3.2-4.5); POTASSIUM 3.6 MMOL/L (3.6-5.0)
[2022-05-19 04:05] LABS: CALCIUM 8.3 MG/DL (8.5-10.1)
[2022-05-19 04:06] LABS: TOTAL PROTEIN 4.8 GM/DL (6.4-8.2)
[2022-05-19 04:08] LABS: BILIRUBIN,TOTAL 5.9 MG/DL (0.1-1.0)
[2022-05-19 04:09] LABS: PHOSPHORUS 2.9 MG/DL (2.3-4.7)
[2022-05-19 04:10] LABS: CREATININE SERUM 2.5 MG/DL (0.60-1.30)
[2022-05-19 04:13] LABS: MAGNESIUM 1.6 MG/DL (1.6-2.4)
[2022-05-19] MEDS: POTASSIUM CL 10MEQ/50ML IVPB 50 ML IV SCH ×3 (04:51→05:14)
[2022-05-19] MEDS: MAGNESIUM 1 GM/100 ML IVPB 100 ML IV SCH ×3 (04:51→05:14)
[2022-05-19] MEDS: KCL 20 MEQ TAB (K-DUR) PO SCH (04:51)
[2022-05-19] MEDS: inSUlin ASPART (NovoLOG) 1 UNIT/0.01 ML (CHARGE PER UNIT) SC SCH ×4 (04:51→20:41)
[2022-05-19] MEDS: NS IV 1000 ML 1,000 ML IV SCH (05:17)
[2022-05-19] MEDS: ACETAMINOPHEN 325 MG TABLET PO PRN (06:11)
--- NOTE | 2022-05-19 07:25 | Progress Note - Surgery ---
NICHOLAS MORALES 05/19/22 0725: Subjective Date Seen by a Provider: May 19, 2022 Time Seen by a Provider: 07:16 Subjective/Events-last exam Pt resting with towel over eyes. States she is feeling better, but still "crummy." She reports fatigue, mild congestion and occasional hiccups. Her nausea is gone. She tolerated dinner well last night. Denies bowel movement, but passing some flatus. Reports she had a nose bleed this morning, that stopped spontaneously. Denies cough, shortness of breath, chest pain, abdominal pain, diarrhea, and urinary sx. Levophed held today (last dose 05/18). Review of Systems General: No Chills; Fatigue HEENT: No Head Aches, No Visual Changes; Other (one nose bleed, stopped spontaneously) Pulmonary: No Dyspnea, No Cough Cardiovascular: No: Chest Pain Gastrointestinal: No: Nausea, Vomiting, Abdominal Pain, Diarrhea, Constipation Genitourinary: No Dysuria, No Frequency Musculoskeletal: No: leg pain Neurological: No: Weakness, Numbness Focused Exam Lactate Level 05/18/22 00:42: Lactic Acid Level 6.67*H 05/18/22 04:46: Lactic Acid Level 3.78*H 05/19/22 03:45: Lactic Acid Level 1.06 Lactic Acid Level Laboratory Tests Test 05/19/22 03:45 Lactic Acid Level 1.06 MMOL/L (0.50-2.00) Objective Exam Vital Signs Date Time Temp Pulse Resp B/P (MAP) Pulse Ox O2 Delivery O2 Flow Rate FiO2 05/19/22 06:00 104 21 95 Room Air 05/19/22 05:12 Room Air 05/19/22 05:00 110 23 95 Nasal Cannula 2.00 05/19/22 04:00 125 19 99 Nasal Cannula 2.00 05/19/22 03:45 98 Nasal Cannula 2.00 05/19/22 03:40 36.3 105 18 98 Nasal Cannula 2.00 05/19/22 03:00 128 19 97 Nasal Cannula 2.00 05/19/22 02:27 119 129/64 05/19/22 02:00 128 14 98 Nasal Cannula 2.00 05/19/22 01:00 129 05/19/22 01:00 128 18 98 Nasal Cannula 2.00 05/19/22 00:00 126 18 99 Nasal Cannula 2.00 05/18/22 23:56 Nasal Cannula 2.00 05/18/22 23:07 126 116/62 05/18/22 23:07 126 116/64 05/18/22 23:05 93 Room Air 05/18/22 23:00 36.1 126 18 93 Room Air 05/18/22 23:00 125 14 94 Room Air 05/18/22 22:00 124 23 97 Room Air 05/18/22 21:00 123 11 96 Room Air 05/18/22 20:00 125 19 94 Room Air 05/18/22 19:30 96 Room Air 05/18/22 19:05 36.0 05/18/22 19:00 125 05/18/22 19:00 124 13 94 Room Air 05/18/22 19:00 36.7 125 22 96 Room Air 05/18/22 18:00 122 28 94 Nasal Cannula 2.00 05/18/22 17:00 120 25 92 Nasal Cannula 2.00 05/18/22 16:00 112 22 92 Nasal Cannula 2.00 05/18/22 15:52 100 Nasal Cannula 2.00 05/18/22 15:29 36.7 05/18/22 15:27 104/63 05/18/22 15:00 117 21 92 Nasal Cannula 2.00 05/18/22 14:00 115 17 93 Nasal Cannula 2.00 05/18/22 13:04 120 05/18/22 13:00 120 19 94 Nasal Cannula 2.00 05/18/22 12:00 100 Nasal Cannula 2.00 05/18/22 12:00 118 12 93 Nasal Cannula 2.00 05/18/22 11:55 36.0 05/18/22 11:00 118 23 94 Nasal Cannula 2.00 05/18/22 10:53 Nasal Cannula 2.00 05/18/22 10:00 120 26 97 Nasal Cannula 2.00 05/18/22 09:00 111 23 100 Nasal Cannula 2.00 05/18/22 08:00 100 Nasal Cannula 2.00 05/18/22 08:00 116 14 100 Nasal Cannula 2.00 05/18/22 07:57 115/48 05/18/22 07:44 36.5 05/18/22 07:39 115 I & O 05/19/22 07:00 Intake Total 3750 ml Output Total 866 ml Balance 2884 ml Capillary Refill : Less Than 3 Seconds General Appearance: No Apparent Distress, Chronically ill, Obese, Other (towel over eyes) HEENT: PERRL/EOMI, Moist Mucous Membranes Neck: Full Range of Motion, Non Tender, Supple Respiratory: Chest Non Tender, Normal Breath Sounds, No Accessory Muscle Use, No Respiratory Distress Cardiovascular: No Edema, No JVD, Tachycardia Peripheral Pulses: 2+ Dorsalis Pedis (R), 2+ Left Dors-Pedis (L), 2+ Radial Pulses (R), 2+ Radial Pulses (L) Gastrointestinal: normal bowel sounds, non tender, soft; No distended, No guarding, No rebound Extremity: Normal Inspection, Non Tender, No Calf Tenderness Neurologic/Psychiatric: Alert, Oriented x3, Normal Mood/Affect Skin: Warm/Dry, Jaundice Lymphatic: No Adenopathy Results Lab Laboratory Tests 05/18/22 07:58: Glucometer 125H 05/18/22 09:59: Glucometer 126H 05/18/22 14:25: Hepatitis A IgM Antibody Non-Reactive, Hepatitis B Surface Antigen Non-Reactive, Hepatitis B Surface Antibody Index <8.00L, Hepatitis Bs Antibody Interpret Non- Immune, Hepatitis B Core IgM Antibody Non-Reactive, Hepatitis C Antibody 05/18/22 17:40: Glucometer 118H 05/18/22 20:00: Glucometer 101 05/19/22 03:45: White Blood Count 10.4, Red Blood Count 3.62L, Hemoglobin 10.3L, Hematocrit 31L, Mean Corpuscular Volume 87, Mean Corpuscular Hemoglobin 29, Mean Corpuscular Hemoglobin Concent 33, Red Cell Distribution Width 17.7H, Platelet Count 133, Mean Platelet Volume 10.9, Immature Granulocyte % (Auto) 1, Neutrophils (%) (Auto) 83H, Lymphocytes (%) (Auto) 8L, Monocytes (%) (Auto) 8, Eosinophils (%) (Auto) 0, Basophils (%) (Auto) 0, Neutrophils # (Auto) 8.7H, Lymphocytes # (Auto) 0.8L, Monocytes # (Auto) 0.8, Eosinophils # (Auto) 0.0, Basophils # (Auto) 0.0, Immature Granulocyte # (Auto) 0.1, Sodium Level 136, Potassium Level 3.6, Chloride Level 98, Carbon Dioxide Level 27, Anion Gap 11, Blood Urea Nitrogen 41H, Creatinine 2.50#H, Estimat Glomerular Filtration Rate 20, BUN /Creatinine Ratio 16, Glucose Level 87, Lactic Acid Level 1.06, Calcium Level 8.3L, Corrected Calcium 9.3, Phosphorus Level 2.9, Magnesium Level 1.6, Total Bilirubin 5.9H, Aspartate Amino Transf (AST/SGOT) 4835#H, Alanine Aminotransferase (ALT/SGPT) 3724#H, Alkaline Phosphatase 100, Total Protein 4.8L , Albumin 2.7L, Digoxin Level 0.87 Microbiology 05/17/22 Urine Culture - Preliminary, Resulted Escherichia coli 05/17/22 Blood Culture - Preliminary, Resulted Probable Coag Negative Staph 05/17/22 MRSA Screen - Final, Complete MRSA not isolated Assessment/Plan Assessment/Plan Assessment/Plan Nausea and vomiting Dehydration Afib with RVR Heart Failure with LVEF 10-15% Hyperbilirubinemia - trending down to 5.9 Lactic acidosis - improving Transaminitis - trending down UTI LUIS Shock NSTEMI CT Abd/pevlis 05/18 showed no biliary ductal dilation. Normal appearing liver. New cystic, 2 cm lesion on spleen - recommended f/up MRI in 3 months likely elevated liver enzymes from shock continue abx Levophed held today Kidney function worsening, Cr 2.5 Continue conservative measures KYAW BERKOWITZ DO 05/19/226: Subjective Subjective/Events-last exam Feeling better this morning than yesterday. Weak and tired. Not having any nausea or emesis at this time. Off pressors. Feeling bloated. Having flatus. Liver enzymes improving but coags elevated. Cr increasing. Objective Exam General Appearance: No Apparent Distress, Chronically ill, Obese HEENT: PERRL/EOMI, Normal ENT Inspection Neck: Full Range of Motion, Non Tender Respiratory: Chest Non Tender, No Accessory Muscle Use, No Respiratory Distress Cardiovascular: No JVD, Tachycardia Gastrointestinal: non tender, soft Extremity: Normal Inspection, Non Tender, No Calf Tenderness Neurologic/Psychiatric: Alert, Oriented x3, Normal Mood/Affect Skin: Warm/Dry, Jaundice Lymphatic: No Adenopathy Assessment/Plan Assessment/Plan Assessment/Plan Nausea and vomiting Dehydration Afib with RVR Heart Failure with LVEF 10-15% Hyperbilirubinemia - trending down to 5.9 Lactic acidosis - improving Transaminitis - trending down UTI LUIS - CR worsening to 2.5 Shock NSTEMI Elevated INR If kidney function worsens tomorrow would consider Nephrology consult. Vitamin K today, Recheck labs in am CT Abd/pevlis 05/18 showed no biliary ductal dilation. Normal appearing liver. New cystic, 2 cm lesion on spleen - recommended f/up MRI in 3 months likely elevated liver enzymes from shock continue abx Levophed held today Kidney function worsening, Cr 2.5 Continue conservative measures Supervisory-Addendum Brief Verification & Attestation Participated in pt care: history, MDM, physical Personally performed: exam, history, MDM, supervision of care Care discussed with: Medical Student Procedures: n/a Results interpretation: Verified all documentation Verification and Attestation of Medical Student E/M Service A medical student performed and documented this service in my presence. I reviewed and verified all information documented by the medical student and made modifications to such information, when appropriate. I personally performed the physical exam and medical decision making. Kyaw Berkowitz, May 19, 2022,19:07 NICHOLAS MORALES May 19, 2022 07:25 KYAW BERKOWITZ DO May 19, 2022 19:06
[2022-05-19] MEDS: DOBUTamine DRIP 250 ML IV SCH ×2 (07:48→15:46)
[2022-05-19] MEDS: SODIUM BICARBONATE 8.4% SYR 150 MEQ in D5W 1000 ML IV SOLUTION 1,000 ML IV SCH ×2 (08:19→21:49)
[2022-05-19] MEDS: DOCUSATE SODIUM 100 MG (COLACE) CAP PO SCH ×2 (08:19→20:41)
[2022-05-19] MEDS: SENNOSIDES 8.6 MG (SENOKOT) TAB PO SCH ×2 (08:19→20:41)
[2022-05-19] MEDS: APIXABAN 5 MG (ELIQUIS) TABLET PO SCH ×2 (08:19→20:41)
[2022-05-19] MEDS ORDERED: DIGOXIN 0.125 MG (LANOXIN) TAB PO SCH (09:00)
--- NOTE | 2022-05-19 09:53 | Progress Note - Cardiology ---
Cardiology SOAP Progress Note Subjective: Sitting up in bed C/O abd distension Reports nose bleed early this morning No c/o CP, SOB or palpitations Reports generally not feeling well No c/o v/d Reports nausea earlier this morning Objective: I&O/Vital Signs 05/19/22 05/19/22 05/19/22 05/19/22 05:00 05:12 06:00 07:00 Pulse 110 104 84 Resp 23 21 B/P (MAP) Pulse Ox 95 95 O2 Delivery Nasal Cannula Room Air Room Air O2 Flow Rate 2.00 05/19/22 05/19/22 05/19/22 05/19/22 07:00 07:47 07:48 08:00 Pulse 101 108 125 Resp 18 18 B/P (MAP) 114/44 Pulse Ox 95 93 96 O2 Delivery Room Air Room Air Room Air 05/19/22 05/19/22 05/19/22 05/19/22 08:12 09:00 10:00 11:00 Temp 36.1 Pulse 124 91 122 Resp 18 18 20 B/P (MAP) Pulse Ox 100 93 97 O2 Delivery Room Air Room Air Room Air 05/19/22 05/19/22 05/19/22 05/19/22 12:00 12:00 12:00 12:40 Temp 36.2 Pulse 93 86 Resp 35 B/P (MAP) Pulse Ox 94 94 O2 Delivery Room Air Room Air 05/19/22 05/19/22 05/19/22 05/19/22 14:00 15:00 15:46 16:00 Temp 36.3 Pulse 123 91 111 125 Resp 16 16 16 B/P (MAP) 92/44 104/61 (75) Pulse Ox 98 96 97 O2 Delivery Room Air Room Air 05/19/22 00:00 Intake Total 850 ml Output Total 361 ml Balance 489 ml Weight (Pounds): 230 Weight (Ounces): 0.0 Weight (Calculated Kilograms): 104.748250 Constitutional: AAO x 3, well-developed, well-nourished, other (yellowish appearance) Respiratory: No accessory muscle use; chest expansion is symmetric, chest is bilaterally symmetric, other (fair to good, bilateral air entry that is diminished at the bases) Cardiovascular: regular rate-rhythm, S1 and S2, systolic murmur (soft YASSINE at card base) Gastrointestional: No tender; soft; No guarding, No rebound; audible bowel sounds Extremities: No clubbing, No cyanosis; no lower extremity edema bilateral; No significant edema Neurologic/Psychiatric: other (able to move all limbs) Skin: warm/dry, jaundice; No rash on exposed areas, No ulcerations on exposed areas Results/Procedures: Labs Laboratory Tests 05/18/22 17:40: Glucometer 118H 05/18/22 20:00: Glucometer 101 05/19/22 03:45: White Blood Count 10.4, Red Blood Count 3.62L, Hemoglobin 10.3L, Hematocrit 31L, Mean Corpuscular Volume 87, Mean Corpuscular Hemoglobin 29, Mean Corpuscular Hemoglobin Concent 33, Red Cell Distribution Width 17.7H, Platelet Count 133, Mean Platelet Volume 10.9, Immature Granulocyte % (Auto) 1, Neutrophils (%) (Auto) 83H, Lymphocytes (%) (Auto) 8L, Monocytes (%) (Auto) 8, Eosinophils (%) (Auto) 0, Basophils (%) (Auto) 0, Neutrophils # (Auto) 8.7H, Lymphocytes # (Auto) 0.8L, Monocytes # (Auto) 0.8, Eosinophils # (Auto) 0.0, Basophils # (Auto) 0.0, Immature Granulocyte # (Auto) 0.1, Sodium Level 136, Potassium Level 3.6, Chloride Level 98, Carbon Dioxide Level 27, Anion Gap 11, Blood Urea Nitrogen 41H, Creatinine 2.50#H, Estimat Glomerular Filtration Rate 20, BUN/Creatinine Ratio 16, Glucose Level 87, Lactic Acid Level 1.06, Calcium Level 8.3L, Corrected Calcium 9.3, Phosphorus Level 2.9, Magnesium Level 1.6, Total Bilirubin 5.9H, Aspartate Amino Transf (AST/SGOT) 4835#H, Alanine Aminotransferase (ALT/SGPT) 3724#H, Alkaline Phosphatase 100, Total Protein 4.8L , Albumin 2.7L, Digoxin Level 0.87 05/19/22 10:00: Prothrombin Time 83.5*H, INR Comment 10.9*H 05/19/22 10:28: Glucometer 87 05/19/22 15:26: Glucometer 89 05/19/22 16:00: Blood Gas Puncture Site RIGHT ARTLINE, Blood Gas Patient Temperature 36.2, Arterial Blood pH 7.47H, Arterial Blood Partial Pressure CO2 40, Arterial Blood Partial Pressure O2 74L, Arterial Blood HCO3 29H, Arterial Blood Total CO2 30.2, Arterial Blood Oxygen Saturation 97, Arterial Blood Base Excess 5.1H, Anupam Test YES-POS, Blood Gas Ventilator Setting NA, Blood Gas Inspired Oxygen NA Microbiology 05/17/22 Urine Culture - Preliminary, Resulted Escherichia coli 05/17/22 Blood Culture - Preliminary, Resulted Probable Coag Negative Staph 05/17/22 MRSA Screen - Final, Complete MRSA not isolated A/P: Assessment: Shock: septic and/or cardiogenic - mild troponin elevation due to type 2 NM due to hypotension - requiring pressor support Hepatitis and marked jaundice of undetermined etiology - managed by Hosp and ICU svces PAF - OAC with Eliquis 5mg BID - did not take on 05/15 and 05/16/22 due to n/v, resumed today - has been non-compliant with Amiodarone tx on 05/15 and 05/16/22 d/t n/v - stopped Chronic HFrEF due to NICM (primarily managed by her variety saw operator Dr Woodward in [place], [place]) - Echocardiogram of 04-08-[address] Felton showed LVEF 10-15% with severe diffuse hypokinesis. LA and RA dilated. Mod to severe AoR. Mod MR. Mod to severe TR. PASP 50-55 mmHg - She reports she had a sleep study done that was "inconclusive" - she does not use CPAP or supplemental oxygen - managed by Dr. Kirk - AICD - implanted in September 2021 at [facility] (single chamber device) - followed by Dr. Woodward - Echo on 05-17-22: LVEF 20-25%, global hypokinesis of LV, mild to mod MR, PASP 35-40 mmHg LUIS and oliguria/anuria - likely due to ATN due to hypotension - Cr worse this morning HLD - statin tx H/o DVT R leg - OAC with Eliquis H/O Breast Cancer - has had a mastectomy Plan: * Continue iv dobutamine to improve cardiac output * Continue iv fluids as needed and as tolerated * Digoxin to control heart rate and treat heart failure - HR not well controlled - increase dig * Not suitable for bb or NIRALI-inhib/ARB due to low bp * Monitor labs closely * Jaundice of undetermined etiology; Hepatitis of undetermined etiology - management per Medical and ICU and Surg svces * Consider transfer to tertiary care facility d/t multi-system involvement JOSIE WINKLER May 19, 2022 09:53
[2022-05-19] MEDS ORDERED: DIGOXIN 0.125 MG (LANOXIN) TAB PO NR (10:00)
--- NOTE | 2022-05-19 10:01 | Tele-ICU Progress Note ---
Subjective Date Seen by a Provider: May 19, 2022 Time Seen by a Provider: 10:00 Subjective/Events-last exam (Tele-ICU Physician , Progress Note ) Service provided via interactive audio and video telecommunications E-CARE system to a patient admitted to ICU bed in [facility]. Patient is seen today due to persistent need of ICU care Available chart/ vitals / labs / Images reviewed Video assessment done using teleICU camera, rest of exam as per RN Discussed with RN Events overnight : Afebrile hemodynamically stable Respiratory - I/O = pos 2L Drips: ns 60 Pressors- no stopped 05/19 am Consultants: patrice alfaro Hospital course: (05/17) 71y/o F admitted with AFib/RVR, CHF. Vomiting. Positive UTI/LUIS. ECHO: EF 20-25%. mild/mod mitral regurg, poor study so cannot eval other valves (05/18) Urine culture: e.coli (05/19) ARF A/P vomiting and feeling generally weak ( elevated bilirubin, s/p cholecystectomy - US liver and CT abd/ pelvis reviewed A fib RVR - as per cards , OFF amio gtt, on dig - HR > 100 - AC BID ANALYST on Eliquis - resumed UTI - Ecoli cx 05/17 - Zosyn 05/17 HFrEF (04/08/20 echo with LVEF 10-15%, severe diffuse hypokinesis - Echo on 05-17-22: LVEF 20-25%, global hypokinesis of LV, mild to mod MR, PASP 35-40 mmHg ELEV liver enzymes - in part is ischemic hepatitis ( + Zosyn ) - arrived with abnormal LFT - viral panel negative Shock - off pressors LUIS - due to all above - cont volume ( using colloids ) - follow CVT , UO and Cr ( as per EMR record , positive volume 5 L since admission ) AG severe met acidosis - stop bicarb gtt , taylor will check abg latter Hypoglycemia -resolved S/P LUMPECTOMY ON LEFT SIDE, RT SIDE MASTECTOMY -s/pCHEMO AND RADIATION--DX IN 1980 H/o DVT R leg- OAC with Eliquis Lines : R IG 05/17 , r a line , (Central Line Necessity Reviewed) Haddad: + OG: Nutrition: Analgesia: Anxiety/ delirium VTE Prophylaxis: eliquis Stress Ulcer Prophylaxis: ppi Plans in collaboration with bedside consultants and IM MDs. Discussed with RN to reach out if any questions or concerns A total of 33 minutes of critical care time was devoted to this patient today, required to treat and/or prevent further deterioration of critical care condition ( as above ) . I am remotely monitoring this patient from another state. I am unable to do the bedside exam, and history/physical and pertinent information is taken from other notes in the computer and bedside staff. . Sepsis Event Evaluation Height, Weight, BMI Height: 5'8.00" Weight: 230lbs. 0.0oz. 104.715173tl; 37.35 BMI Method:Stated Focused Exam Lactate Level 05/18/22 00:42: Lactic Acid Level 6.67*H 05/18/22 04:46: Lactic Acid Level 3.78*H 05/19/22 03:45: Lactic Acid Level 1.06 Exam Exam Patient acknowledged, consented, and participated in this virtual visit which was conducted using real time audio/video Vital Signs Date Time Temp Pulse Resp B/P (MAP) Pulse Ox O2 Delivery O2 Flow Rate FiO2 05/19/22 08:12 36.1 05/19/22 08:00 125 18 96 Room Air 05/19/22 07:48 108 114/44 05/19/22 07:47 93 Room Air 05/19/22 07:00 101 18 95 Room Air 05/19/22 07:00 84 05/19/22 06:00 104 21 95 Room Air 05/19/22 05:12 Room Air 05/19/22 05:00 110 23 95 Nasal Cannula 2.00 05/19/22 04:00 125 19 99 Nasal Cannula 2.00 05/19/22 03:45 98 Nasal Cannula 2.00 05/19/22 03:40 36.3 105 18 98 Nasal Cannula 2.00 05/19/22 03:00 128 19 97 Nasal Cannula 2.00 05/19/22 02:27 119 129/64 05/19/22 02:00 128 14 98 Nasal Cannula 2.00 05/19/22 01:00 129 05/19/22 01:00 128 18 98 Nasal Cannula 2.00 05/19/22 00:00 126 18 99 Nasal Cannula 2.00 05/18/22 23:56 Nasal Cannula 2.00 05/18/22 23:07 126 116/62 05/18/22 23:07 126 116/64 05/18/22 23:05 93 Room Air 05/18/22 23:00 36.1 126 18 93 Room Air 05/18/22 23:00 125 14 94 Room Air 05/18/22 22:00 124 23 97 Room Air 05/18/22 21:00 123 11 96 Room Air 05/18/22 20:00 125 19 94 Room Air 05/18/22 19:30 96 Room Air 05/18/22 19:05 36.0 05/18/22 19:00 125 05/18/22 19:00 124 13 94 Room Air 05/18/22 19:00 36.7 125 22 96 Room Air 05/18/22 18:00 122 28 94 Nasal Cannula 2.00 05/18/22 17:00 120 25 92 Nasal Cannula 2.00 05/18/22 16:00 112 22 92 Nasal Cannula 2.00 05/18/22 15:52 100 Nasal Cannula 2.00 05/18/22 15:29 36.7 05/18/22 15:27 104/63 05/18/22 15:00 117 21 92 Nasal Cannula 2.00 05/18/22 14:00 115 17 93 Nasal Cannula 2.00 05/18/22 13:04 120 05/18/22 13:00 120 19 94 Nasal Cannula 2.00 05/18/22 12:00 100 Nasal Cannula 2.00 05/18/22 12:00 118 12 93 Nasal Cannula 2.00 05/18/22 11:55 36.0 05/18/22 11:00 118 23 94 Nasal Cannula 2.00 05/18/22 10:53 Nasal Cannula 2.00 I & O 05/19/22 06:59 Intake Total 3750 ml Output Total 866 ml Balance 2884 ml Height & Weight Height: 5'8.00" Weight: 230lbs. 0.0oz. 104.151680nr; 37.35 BMI Method:Stated General Appearance: No Apparent Distress, Chronically ill, Obese, Other (towel over eyes) HEENT: PERRL/EOMI, Moist Mucous Membranes Neck: Full Range of Motion, Non Tender, Supple Respiratory: Chest Non Tender, Normal Breath Sounds, No Accessory Muscle Use, No Respiratory Distress Cardiovascular: No Edema, No JVD, Tachycardia Capillary Refill: Less Than 3 Seconds Peripheral Pulses: 2+ Dorsalis Pedis (R), 2+ Left Dors-Pedis (L), 2+ Radial Pulses (R), 2+ Radial Pulses (L) Gastrointestinal: normal bowel sounds, non tender, soft; No distended, No guarding, No rebound Extremity: Normal Inspection, Non Tender, No Calf Tenderness Neurologic/Psychiatric: Alert, Oriented x3, Normal Mood/Affect Skin: Warm/Dry, Jaundice Lymphatic: No Adenopathy Results Lab Laboratory Tests 05/17/22 12:20 05/18/22 04:46 05/19/22 03:45 Assessment/Plan Assessment/Plan 1 RANDI MCCLOUD MD May 19, 2022 10:01
[2022-05-19] MEDS ORDERED: ALBUMIN 5% 12.5 GM/250 ML 250 ML IV ONE ×2 (10:30→17:00)
[2022-05-19 11:29] LABS: INR 10.9 (0.8-1.4); PROTHROMBIN TIME PATIENT 83.5 SEC (12.2-14.7)
[2022-05-19] MEDS ORDERED: TROUGH ORDER-PHARMACY XX NR (13:00)
[2022-05-19] MEDS ORDERED: NS IV NR (13:00)
[2022-05-19] MEDS ORDERED: PHYTONADIONE IV NR (13:00)
--- NOTE | 2022-05-19 13:13 | Progress Note - Hospitalist ---
MILAGROS ARAUJO 05/19/22 1313: Subjective HPI/CC On Admission Date Seen by Provider: May 19, 2022 Time Seen by Provider: 08:15 Subjective/Events-last exam Pt is feeling a little slugish today, but states that she feel better today than yesterday and is still w/o any pain. Pt feels bloated that has been intermittent since admission. Gets better w/ passage of gas. She had a nose bleed this morning around 5am which led to her placing a warm wet washcloth on her face. States she doesn't have much of an appetite this morning. Review of Systems General: No Chills, No Night Sweats, No Fatigue HEENT: No Head Aches, No Visual Changes, No Ear Pain Pulmonary: No Dyspnea, No Cough Cardiovascular: No: Chest Pain, Palpitations, Edema Gastrointestinal: Other; No: Nausea, Vomiting, Abdominal Pain, Diarrhea, Constipation Genitourinary: No Dysuria Neurological: No: Weakness, Numbness Focused Exam Lactate Level 05/18/22 00:42: Lactic Acid Level 6.67*H 05/18/22 04:46: Lactic Acid Level 3.78*H 05/19/22 03:45: Lactic Acid Level 1.06 Objective Exam Vital Signs Vital Signs Date Time Temp Pulse Resp B/P (MAP) Pulse Ox O2 Delivery O2 Flow Rate FiO2 05/19/22 12:40 86 05/19/22 12:00 36.2 05/19/22 12:00 94 Room Air 05/19/22 12:00 35 05/19/22 05:00 2.00 Capillary Refill : Less Than 3 Seconds General Appearance: No Apparent Distress Respiratory: Chest Non Tender, Lungs Clear, Normal Breath Sounds Cardiovascular: No Edema, No Murmur, Normal Peripheral Pulses, Irregularly Irregular Gastrointestinal: Normal Bowel Sounds, Non Tender, Soft Rectal: Deferred Extremity: Non Tender, No Calf Tenderness Neurologic/Psychiatric: Alert, Oriented x3 Results/Procedures Lab Laboratory Tests 05/19/22 03:45 Patient resulted labs reviewed. Imaging: Reviewed Imaging Report Assessment/Plan Assessment and Plan Assess & Plan/Chief Complaint Septic Shock Secondary to E. Coli UTI absent bacterimia Cardiogenic Shock Ischemic Hepatitis Acute Kidney Injury Type II NSTEMI Lactic Acidosis Hypoglycemia Normal WBC Liver Enzymes improving Negative Hepatitis Panel r/o viral hepatitis Continue Abx Continue IV Fluids PAF HFrEF Digoxin control Eliquis Dobutamine Levophed discontinued Gilbert's Disease History of elevated Total Bilirubin Direct and Indirect ordered Indirect Elevated OSMANY NAILS MD 05/19/22 1909: Subjective HPI/CC On Admission Time Seen by Provider: 10:00 Objective Exam General Appearance: No Apparent Distress, Obese Respiratory: Lungs Clear, No Respiratory Distress Cardiovascular: No Murmur, Tachycardia Gastrointestinal: Normal Bowel Sounds, Soft Extremity: Normal Inspection, No Pedal Edema Neurologic/Psychiatric: Alert, No Motor/Sensory Deficits Skin: Normal Color, Warm/Dry Assessment/Plan Assessment and Plan Assess & Plan/Chief Complaint Remains on Dobutamine, off Levophed. Transitioin to Rocephin for chun-sensitive E coli. Kidney function slightly worse, likely due to ATN, monitor output. Diagnosis/Problems Diagnosis/Problems (1) Septic shock Status: Acute (2) Cardiogenic shock Status: Acute (3) E. coli UTI Status: Acute (4) LUIS (acute kidney injury) Status: Acute (5) ATN (acute tubular necrosis) Status: Acute (6) NSTEMI (non-ST elevation myocardial infarction) Status: Acute (7) Lactic acidosis Status: Resolved Resolution Date/Time: 05/19/22 @ 19:07 (8) Acute on chronic HFrEF (heart failure with reduced ejection fraction) Status: Acute (9) Shock liver Status: Acute (10) Gilbert syndrome Status: Chronic Supervisory-Addendum Brief Verification & Attestation Participated in pt care: history, MDM, physical Personally performed: exam, history, MDM, supervision of care Care discussed with: Medical Student Procedures: n/a Results interpretation: Verified all documentation A medical student performed and documented this service in my presence. I reviewed and verified all information documented by the medical student and made modifications to such information, when appropriate. I personally performed the physical exam and medical decision making. MILAGROS ARAUJO May 19, 2022 13:13 OSMANY NAILS MD May 19, 2022 19:09
--- NOTE | 2022-05-19 13:30 | Progress Note - Cardiology ---
Cardiology SOAP Progress Note Subjective: Gen weakness and malaise Intemittent nausea No cp or palp or syncope No vomiting No focal weakness Objective: I&O/Vital Signs 05/19/22 05/19/22 05/19/22 05/19/22 02:00 02:27 03:00 03:40 Temp 36.3 Pulse 128 119 128 105 Resp 14 19 18 B/P (MAP) 129/64 Pulse Ox 98 97 98 O2 Delivery Nasal Cannula Nasal Cannula Nasal Cannula O2 Flow Rate 2.00 2.00 2.00 05/19/22 05/19/22 05/19/22 05/19/22 03:45 04:00 05:00 05:12 Pulse 125 110 Resp 23 B/P (MAP) Pulse Ox 98 99 95 O2 Delivery Nasal Cannula Nasal Cannula Nasal Cannula Room Air O2 Flow Rate 2.00 2.00 2.00 05/19/22 05/19/22 05/19/22 05/19/22 06:00 07:00 07:00 07:47 Pulse 104 84 101 Resp 21 18 B/P (MAP) Pulse Ox 95 95 93 O2 Delivery Room Air Room Air Room Air 05/19/22 05/19/22 05/19/22 05/19/22 07:48 08:00 08:12 09:00 Temp 36.1 Pulse 108 125 124 Resp 18 18 B/P (MAP) 114/44 Pulse Ox 96 100 O2 Delivery Room Air Room Air 05/19/22 05/19/22 05/19/22 05/19/22 10:00 11:00 12:00 12:00 Pulse 91 122 93 Resp 18 20 35 B/P (MAP) Pulse Ox 93 97 94 94 O2 Delivery Room Air Room Air Room Air Room Air 05/19/22 05/19/22 12:00 12:40 Temp 36.2 Pulse 86 05/18/22 23:59 Intake Total 850 ml Output Total 361 ml Balance 489 ml Weight (Pounds): 230 Weight (Ounces): 0.0 Weight (Calculated Kilograms): 104.178234 Constitutional: AAO x 3, well-developed, well-nourished, other (yellowish appearance) Respiratory: No accessory muscle use; chest expansion is symmetric, chest is bilaterally symmetric, other (fair to good, bilateral air entry that is diminished at the bases) Cardiovascular: regular rate-rhythm, S1 and S2, systolic murmur (soft YASSINE at card base) Gastrointestional: No tender; soft; No guarding, No rebound; audible bowel sounds Extremities: No clubbing, No cyanosis; no lower extremity edema bilateral; No significant edema Neurologic/Psychiatric: other (able to move all limbs) Skin: warm/dry, jaundice; No rash on exposed areas, No ulcerations on exposed areas Results/Procedures: Labs Laboratory Tests 05/18/22 14:25: Hepatitis A IgM Antibody Non-Reactive, Hepatitis B Surface Antigen Non-Reactive, Hepatitis B Surface Antibody Index <8.00L, Hepatitis Bs Antibody Interpret Non- Immune, Hepatitis B Core IgM Antibody Non-Reactive, Hepatitis C Antibody 05/18/22 17:40: Glucometer 118H 05/18/22 20:00: Glucometer 101 05/19/22 03:45: White Blood Count 10.4, Red Blood Count 3.62L, Hemoglobin 10.3L, Hematocrit 31L, Mean Corpuscular Volume 87, Mean Corpuscular Hemoglobin 29, Mean Corpuscular Hemoglobin Concent 33, Red Cell Distribution Width 17.7H, Platelet Count 133, Mean Platelet Volume 10.9, Immature Granulocyte % (Auto) 1, Neutrophils (%) (Auto) 83H, Lymphocytes (%) (Auto) 8L, Monocytes (%) (Auto) 8, Eosinophils (%) (Auto) 0, Basophils (%) (Auto) 0, Neutrophils # (Auto) 8.7H, Lymphocytes # (Auto) 0.8L, Monocytes # (Auto) 0.8, Eosinophils # (Auto) 0.0, Basophils # (Auto) 0.0, Immature Granulocyte # (Auto) 0.1, Sodium Level 136, Potassium Level 3.6, Chloride Level 98, Carbon Dioxide Level 27, Anion Gap 11, Blood Urea Nitrogen 41H, Creatinine 2.50#H, Estimat Glomerular Filtration Rate 20, BUN/Creatinine Ratio 16, Glucose Level 87, Lactic Acid Level 1.06, Calcium Level 8.3L, Corrected Calcium 9.3, Phosphorus Level 2.9, Magnesium Level 1.6, Total Bilirubin 5.9H, Aspartate Amino Transf (AST/SGOT) 4835#H, Alanine Aminotransferase (ALT/SGPT) 3724#H, Alkaline Phosphatase 100, Total Protein 4.8L , Albumin 2.7L, Digoxin Level 0.87 05/19/22 10:00: Prothrombin Time 83.5*H, INR Comment 10.9*H 05/19/22 10:28: Glucometer 87 Microbiology 05/17/22 Urine Culture - Preliminary, Resulted Escherichia coli 05/17/22 Blood Culture - Preliminary, Resulted Probable Coag Negative Staph 05/17/22 MRSA Screen - Final, Complete MRSA not isolated A/P: Assessment: Shock: septic and/or cardiogenic - mild troponin elevation due to type 2 NM due to hypotension - requiring pressor support Hepatitis and marked jaundice of undetermined etiology - managed by Hosp and ICU svces Coagulopathy - due to hepatic failure and due to apixaban PAF - OAC with Eliquis 5mg BID - did not take on 05/15 and 05/16/22 due to n/v, resumed today - has been non-compliant with Amiodarone tx on 05/15 and 05/16/22 d/t n/v - stopped due to hepatic failure during this hospitalization Chronic HFrEF due to NICM (primarily managed by her group managing director Dr Woodward in [place], [place]) - Echocardiogram of 04-08-[address] Felton showed LVEF 10-15% with severe diffuse hypokinesis. LA and RA dilated. Mod to severe AoR. Mod MR. Mod to severe TR. PASP 50-55 mmHg - She reports she had a sleep study done that was "inconclusive" - she does not use CPAP or supplemental oxygen - managed by Dr. Kirk - AICD - implanted in September 2021 at [facility] (single chamber device) - followed by Dr. Woodward - Echo on 05-17-22: LVEF 20-25%, global hypokinesis of LV, mild to mod MR, PASP 35-40 mmHg Acute renal failure - likely due to ATN due to hypotension - Cr worse this morning HLD - statin tx H/o DVT R leg - OAC with Eliquis H/O Breast Cancer - has had a mastectomy Plan: * Continue iv dobutamine to improve cardiac output * Continue iv fluids as needed and as tolerated * Digoxin to control heart rate and treat heart failure - HR not well controlled - increase dig - dig level in am * Not suitable for bb or NIRALI-inhib/ARB due to low bp and ac renal failure * Monitor labs closely * Treat coagulopathy. Hold apixaban for now * Consider transfer to tertiary care facility d/t multi-system involvement * Discussed with Dr Avitia today CHAU POPE MD FACP FACC CCDS May 19, 2022 13:30
[2022-05-19] MEDS: ONDANSETRON 4 MG/2 ML (SDV) Z0FRAN IV PRN (14:41)
[2022-05-19 16:12] LABS: ABG BASE EXCESS 5.1 MMOL/L (-2.5-2.5); ABG OXYGEN SATURATION 97 % (94-100); ABG PCO2 40 MMHG (35-45); ABG PH 7.47 (7.37-7.43); ABG PO2 74 MMHG (79-93); ABG TCO2 30.2 MMOL/L (21.0-31.0); ALLENS TEST YES-POS
[2022-05-19 16:13] LABS: PATIENT TEMP 36.2
[2022-05-19] MEDS: NOREPINEPHRINE 8 MG/250 ML 250 ML IV SCH (18:12)
[2022-05-19] MEDS: cefTRIAXone 2,000 MG in NS (IVPB) 50 ML IV SCH (20:41)
[2022-05-20] MEDS: DOBUTamine DRIP 250 ML IV SCH ×3 (00:45→20:07)
[2022-05-20 04:49] LABS: BASOPHILS % (AUTO) 0 % (0-10); EOSINOPHILS # (AUTO) 0.1 10^3/uL (0.0-0.3); EOSINOPHILS % (AUTO) 1 % (0-10); HEMATOCRIT 33 % (35-52); HEMOGLOBIN 10.7 g/dL (11.5-16.0); LYMPHOCYTES # (AUTO) 0.5 10^3/uL (1.0-4.0); LYMPHOCYTES % (AUTO) 7 % (12-44); MEAN CORPUSCULAR HEMOGLOBIN 28 pg (25-34); MEAN CORPUSCULAR HGB CONC 33 g/dL (32-36); MEAN CORPUSCULAR VOLUME 86 fL (80-99); MEAN PLATELET VOLUME 10.6 fL (9.0-12.2); MONOCYTES # (AUTO) 0.7 10^3/uL (0.0-1.0); MONOCYTES % (AUTO) 10 % (0-12); NEUTROPHILS # (AUTO) 6.1 10^3/uL (1.8-7.8); NEUTROPHILS % (AUTO) 81 % (42-75); PLATELET COUNT 135 10^3/uL (130-400); WHITE BLOOD COUNT 7.6 10^3/uL (4.3-11.0)
[2022-05-20 05:22] LABS: ALBUMIN 2.8 GM/DL (3.2-4.5); CALCIUM 8.9 MG/DL (8.5-10.1); CREATININE SERUM 3.15 MG/DL (0.60-1.30); PHOSPHORUS 3.3 MG/DL (2.3-4.7); POTASSIUM 3.8 MMOL/L (3.6-5.0)
[2022-05-20 05:30] LABS: INR 5.1 (0.8-1.4); PROTHROMBIN TIME PATIENT 47.3 SEC (12.2-14.7)
[2022-05-20] MEDS: POTASSIUM CL 10MEQ/50ML IVPB 50 ML IV SCH (05:35)
[2022-05-20] MEDS: inSUlin ASPART (NovoLOG) 1 UNIT/0.01 ML (CHARGE PER UNIT) SC SCH ×4 (05:36→22:05)
[2022-05-20] MEDS: KCL 20 MEQ TAB (K-DUR) PO SCH (05:36)
[2022-05-20] MEDS: MAGNESIUM 1 GM/100 ML IVPB 100 ML IV SCH (05:36)
[2022-05-20] MEDS: NOREPINEPHRINE 8 MG/250 ML 250 ML IV SCH ×2 (06:22→20:09)
--- NOTE | 2022-05-20 07:00 | Progress Note - Surgery ---
LYLE CRUMP 05/20/22 0700: Subjective Date Seen by a Provider: May 20, 2022 Time Seen by a Provider: 06:55 Subjective/Events-last exam pt resting comfortably in bed claiming she feels "so,so" but improvement since yesterday. Pt reports she is in no pain at this time. She has not had a BM since arrival but is passing flatus and burping. States her abdomen feels distended and relieved by passing gas. Tolerating diet well but claims she has a decreased appetite. Denies fever , chills, n/v, urinary symptoms, CP, or SOB. Review of Systems General: No Chills; Fatigue HEENT: No Head Aches, No Dysphasia Pulmonary: No Dyspnea, No Cough Cardiovascular: No: Chest Pain, Palpitations Gastrointestinal: Constipation; No: Nausea, Vomiting Genitourinary: No Dysuria, No Frequency Musculoskeletal: No: back pain, leg pain Neurological: Weakness; No: Numbness, Change in speech Focused Exam Lactate Level 05/18/22 00:42: Lactic Acid Level 6.67*H 05/18/22 04:46: Lactic Acid Level 3.78*H 05/19/22 03:45: Lactic Acid Level 1.06 Objective Exam Vital Signs Date Time Temp Pulse Resp B/P (MAP) Pulse Ox O2 Delivery O2 Flow Rate FiO2 05/20/22 06:00 94 19 99 Nasal Cannula 2.00 114/53 (73) 05/20/22 05:00 102 14 99 Nasal Cannula 2.00 118/55 (76) 05/20/22 04:00 114 15 99 Nasal Cannula 2.00 115/50 (71) 05/20/22 04:00 36.1 05/20/22 04:00 99 Nasal Cannula 2.00 05/20/22 03:00 104 15 100 Nasal Cannula 2.00 127/50 (75) 05/20/22 02:00 124 15 100 Nasal Cannula 2.00 126/57 (80) 05/20/22 01:00 96 05/20/22 01:00 101 20 100 Nasal Cannula 2.00 120/51 (74) 05/20/22 00:45 106 107/44 05/20/22 00:00 98 Nasal Cannula 2.00 05/20/22 00:00 126 20 100 Nasal Cannula 2.00 105/47 (66) 05/19/22 23:00 96 20 100 Nasal Cannula 2.00 112/44 (66) 05/19/22 22:00 96 24 99 Nasal Cannula 2.00 116/51 (72) 05/19/22 21:45 Nasal Cannula 2.00 05/19/22 21:00 129 24 98 Room Air 121/48 (72) 05/19/22 20:00 36.2 125 13 112/42 (65) 96 Room Air 05/19/22 20:00 96 Room Air 05/19/22 19:00 97 14 97 Room Air 126/53 (77) 05/19/22 19:00 128 05/19/22 16:00 94 Room Air 05/19/22 16:00 36.3 125 16 104/61 (75) 97 05/19/22 15:46 111 92/44 05/19/22 15:00 91 16 96 Room Air 05/19/22 14:00 123 16 98 Room Air 05/19/22 12:40 86 05/19/22 12:00 36.2 05/19/22 12:00 94 Room Air 05/19/22 12:00 93 35 94 Room Air 05/19/22 11:00 122 20 97 Room Air 05/19/22 10:00 91 18 93 Room Air 05/19/22 09:00 124 18 100 Room Air 05/19/22 08:12 36.1 05/19/22 08:00 125 18 96 Room Air 05/19/22 07:48 108 114/44 05/19/22 07:47 93 Room Air 05/19/22 07:00 101 18 95 Room Air 05/19/22 07:00 84 I & O 05/20/22 07:00 Intake Total 2900.25 ml Output Total 1850 ml Balance 1050.25 ml Capillary Refill : Less Than 3 Seconds General Appearance: No Apparent Distress, Obese HEENT: PERRL/EOMI, Normal ENT Inspection Neck: Non Tender, Supple Respiratory: Chest Non Tender, Lungs Clear, Normal Breath Sounds, No Accessory Muscle Use, No Respiratory Distress Cardiovascular: Normal Peripheral Pulses, Systolic Murmur, JVD Peripheral Pulses: 2+ Dorsalis Pedis (R), 2+ Left Dors-Pedis (L), 2+ Radial Pulses (R), 2+ Radial Pulses (L) Gastrointestinal: non tender, soft, no pulsatile mass, abnormal bowel sounds (hypoactive in RLQ and LLQ ), distended Extremity: Normal Capillary Refill, Normal Inspection, Non Tender, No Calf Tenderness, Pedal Edema Neurologic/Psychiatric: Alert, Oriented x3, No Motor/Sensory Deficits Skin: Normal Color, Warm/Dry Lymphatic: No Adenopathy Results Lab Laboratory Tests 05/19/22 10:00: Prothrombin Time 83.5*H, INR Comment 10.9*H 05/19/22 10:28: Glucometer 87 05/19/22 15:26: Glucometer 89 05/19/22 16:00: Blood Gas Puncture Site RIGHT ARTLINE, Blood Gas Patient Temperature 36.2, Arterial Blood pH 7.47H, Arterial Blood Partial Pressure CO2 40, Arterial Blood Partial Pressure O2 74L, Arterial Blood HCO3 29H, Arterial Blood Total CO2 30.2, Arterial Blood Oxygen Saturation 97, Arterial Blood Base Excess 5.1H, Anupam Test YES-POS, Blood Gas Ventilator Setting NA, Blood Gas Inspired Oxygen NA 05/19/22 20:24: Glucometer 109 05/20/22 04:40: White Blood Count 7.6, Red Blood Count 3.79L, Hemoglobin 10.7L, Hematocrit 33L, Mean Corpuscular Volume 86, Mean Corpuscular Hemoglobin 28, Mean Corpuscular Hemoglobin Concent 33, Red Cell Distribution Width 17.7H, Platelet Count 135, Mean Platelet Volume 10.6, Immature Granulocyte % (Auto) 1, Neutrophils (%) (Auto) 81H, Lymphocytes (%) (Auto) 7L, Monocytes (%) (Auto) 10, Eosinophils (%) (Auto) 1, Basophils (%) (Auto) 0, Neutrophils # (Auto) 6.1, Lymphocytes # (Auto) 0.5L, Monocytes # (Auto) 0.7, Eosinophils # (Auto) 0.1, Basophils # (Auto) 0.0, Immature Granulocyte # (Auto) 0.1, Prothrombin Time 47.3*H, INR Comment 5.1*H, Activated Partial Thromboplast Time 42H, Sodium Level 136, Potassium Level 3.8, Chloride Level 97L, Carbon Dioxide Level 26, Anion Gap 13, Blood Urea Nitrogen 46H, Creatinine 3.15#H, Estimat Glomerular Filtration Rate 15, BUN/Creatinine Ratio 15, Glucose Level 88, Calcium Level 8.9, Corrected Calcium 9.9, Phosphorus Level 3.3, Magnesium Level 2.0, Total Bilirubin 6.0H, Aspartate Amino Transf (AST/SGOT) 1354#H, Alanine Aminotransferase (ALT/SGPT) 2487#H, Alkaline Phosphatase 93, Total Protein 5.0L, Albumin 2.8L, Digoxin Level 1.46 Microbiology 05/17/22 Urine Culture - Final, Complete Escherichia coli 05/17/22 Blood Culture - Preliminary, Resulted Probable Coag Negative Staph 05/17/22 MRSA Screen - Final, Complete MRSA not isolated Assessment/Plan Assessment/Plan Assessment/Plan Nausea and vomiting Dehydration Afib with RVR Heart Failure with LVEF 10-15% Hyperbilirubinemia - uncahnged from yesterday at 6.0 Lactic acidosis - improving Transaminitis - trending down UTI LUIS - CR worsening to 3.15 Shock NSTEMI Elevated INR. Vitamin K yesterday, coag studies trending down Kidney function continuing to decrease, consult nephrology today CT Abd/pevlis 05/18 showed no biliary ductal dilation. Normal appearing liver. New cystic, 2 cm lesion on spleen - recommended f/up MRI in 3 months likely elevated liver enzymes from shock continue abx Levophed held again Kidney function worsening, Cr 3.15- consult nephrology today Continue conservative measures plans to sign off today KYAW BERKOWITZ DO 05/20/22 1053: Subjective Subjective/Events-last exam Feeling a little better than yesterday. No abdominal pain, but slight bloating. Tolerating diet. Left arm swelling more. Cr incresing. Denies n/v fever sweats chills shortness of breath or chest pain. Objective Exam General Appearance: No Apparent Distress, Obese HEENT: PERRL/EOMI, Normal ENT Inspection Neck: Non Tender, Supple, Other (right IJ central line) Respiratory: Chest Non Tender, No Accessory Muscle Use, No Respiratory Distress Cardiovascular: Regular Rate, Rhythm Gastrointestinal: non tender, soft; No distended Extremity: Non Tender, No Calf Tenderness Neurologic/Psychiatric: Alert, Oriented x3, No Motor/Sensory Deficits Skin: Warm/Dry, Jaundice Lymphatic: No Adenopathy Assessment/Plan Assessment/Plan Assessment/Plan Nausea and vomiting Dehydration Afib with RVR Heart Failure with LVEF 10-15% Hyperbilirubinemia - uncahnged from yesterday at 6.0 Lactic acidosis - improving Transaminitis - trending down UTI LUIS - CR worsening to 3.15 Shock NSTEMI Elevated INR. Vitamin K yesterday, coag studies trending down continue to follow Kidney function continuing to decrease, consult nephrology today No general surgical issues at this time will sign off, call if needed. Supervisory-Addendum Brief Verification & Attestation Participated in pt care: history, MDM, physical Personally performed: exam, history, MDM, supervision of care Care discussed with: Medical Student Procedures: n/a Results interpretation: Verified all documentation Verification and Attestation of Medical Student E/M Service A medical student performed and documented this service in my presence. I reviewed and verified all information documented by the medical student and made modifications to such information, when appropriate. I personally performed the physical exam and medical decision making. Kyaw Berkowitz, May 20, 2022,10:52 LYLE CRUMP May 20, 2022 07:00 KYAW BERKOWITZ DO May 20, 2022 10:53
[2022-05-20] MEDS: SENNOSIDES 8.6 MG (SENOKOT) TAB PO SCH ×2 (08:21→20:08)
[2022-05-20] MEDS: DOCUSATE SODIUM 100 MG (COLACE) CAP PO SCH ×2 (08:21→20:08)
[2022-05-20] MEDS: NS IV 1000 ML 1,000 ML IV SCH ×2 (08:25→10:30)
[2022-05-20] MEDS ORDERED: DIGOXIN 0.25 MG (LANOXIN) TAB PO SCH (09:00)
[2022-05-20] MEDS: APIXABAN 5 MG (ELIQUIS) TABLET PO SCH ×2 (09:00→20:08)
--- NOTE | 2022-05-20 09:26 | Consultation ---
History of Present Illness History of Present Illness Patient Consulted On(leighton/time) 05/20/22 09:26 Date Seen by Provider: May 20, 2022 Time Seen by Provider: 16:43 History of Present Illness Mrs. Richter is a very pleasant 71 y/o WF with h/o paroxysmal A. fib/flutter on Eliquis, HFrEF, and HLD presenting with n/v and afib with rvr. Pt was also noted to have hypotension and acute renal failure. She did received ivf and now has some pitting edema. Tolerating po well. Denies nsaids. Allergies and Home Medications Allergies Coded Allergies: codeine (Verified Allergy, Mild, HALLUCINATIONS, 01/18/17) Patient Home Medication List Home Medication List Reviewed: Yes Amiodarone HCl (Amiodarone HCl) 200 Mg Tablet, 400 MG PO DAILY, (Reported) Entered as Reported by: KIMBERLY BURRIS on 05/18/221113 Last Action: Reviewed Apixaban (Eliquis) 5 Mg Tablet, 5 MG PO BID, (Reported) Entered as Reported by: KIMBERLY BURRIS on 02/16/221222 Last Action: Reviewed Carvedilol (Carvedilol) 25 Mg Tablet, 12.5 MG PO BID, (Reported) Entered as Reported by: KIMBERLY BURRIS on 05/18/221113 Last Action: Reviewed Cyanocobalamin (Vitamin B-12) (Vitamin B-12) 1,000 Mcg Tablet, 1,000 MCG PO DAILY, (Reported) Entered as Reported by: KIMBERLY BURRIS on 02/16/221222 Last Action: Reviewed Empagliflozin (Jardiance) 10 Mg Tablet, 10 MG PO DAILY, (Reported) Entered as Reported by: KIMBERLY BURRIS on 05/18/221113 Last Action: Reviewed Fish Oil/Dha/Epa (Fish Oil 1,200 mg Fish Oil) 1,200 Mg-144 Mg-216 Mg Capsule, 1 EACH PO DAILY, (Reported) Entered as Reported by: KIMBERLY BURRIS on 02/16/221222 Last Action: Reviewed Furosemide (Furosemide) 40 Mg Tablet, 40 MG PO DAILY, (Reported) Entered as Reported by: KIMBERLY BURRIS on 05/18/221113 Last Action: Reviewed Letrozole (Letrozole) 2.5 Mg Tablet, 2.5 MG PO DAILY, (Reported) Entered as Reported by: KIMBERLY BURRIS on 02/16/221222 Last Action: Reviewed Meclizine HCl (Meclizine HCl) 25 Mg Tablet, 25 MG PO DAILY, (Reported) Entered as Reported by: KIMBERLY BURRIS on 02/16/221222 Last Action: Reviewed Potassium Gluconate (Potassium Gluconate 595 MG) 595 Mg (99 Mg) Tablet, 99 MG PO DAILY PRN for MUSCLE CRAMPS, (Reported) Entered as Reported by: KIMBERLY BURRIS on 05/18/221113 Last Action: Reviewed Spironolactone (Spironolactone) 25 Mg Tablet, 12.5 MG PO DAILY, (Reported) Entered as Reported by: KIMBERLY BURRIS on 05/18/221113 Last Action: Reviewed Venlafaxine HCl (Venlafaxine HCl ER) 150 Mg Cap.er.24h, 150 MG PO DAILY, (Reported) Entered as Reported by: KIMBERLY BURRIS on 02/16/221222 Last Action: Reviewed Discontinued Medications Amiodarone HCl (Amiodarone HCl) 200 Mg Tablet, 100 MG PO DAILY, (Reported) Discontinued Reason: No Longer Taking Entered as Reported by: KIMBERLY BURRIS on 02/16/221222 Last Action: Discontinued Carvedilol (Carvedilol) 25 Mg Tablet, 12.5 MG PO BID Discontinued Reason: No Longer Taking Prescribed by: OSMANY NAILS on 02/21/221513 Last Action: Discontinued Empagliflozin (Jardiance) 10 Mg Tablet, 10 MG PO DAILY Discontinued Reason: Duplicate Order Prescribed by: OSMANY NAILS on 02/21/221513 Last Action: Discontinued Furosemide (Furosemide) 40 Mg Tablet, 80 MG PO DAILY Discontinued Reason: Duplicate Order Prescribed by: OSMANY NAILS on 02/21/221516 Last Action: Discontinued Sacubitril/Valsartan (Entresto 24 mg-26 mg Tablet) 24 Mg-26 Mg Tablet, 1 TAB PO BID Discontinued Reason: No Longer Taking Prescribed by: OSMANY NAILS on 02/21/221513 Last Action: Discontinued Spironolactone (Spironolactone) 25 Mg Tablet, 12.5 MG PO DAILY Discontinued Reason: Duplicate Order Prescribed by: OSMANY NAILS on 02/21/221513 Last Action: Discontinued Past Lrjkbmy-Ojxhil-Rjeqll Hx Patient Social History Tobacco Use?: No Smoking Status: Former Smoker Substance use?: No Alcohol Use?: No Pt feels they are or have been: No Immunizations Up To Date Influenza Vaccine Up-to-Date: Yes; Up-to-Date First/Initial COVID19 Vaccinat: 2020 Second COVID19 Vaccination [place]: 2020 Third COVID19 Vaccination Date: 2021 Seasonal Allergies Seasonal Allergies: Yes Past Medical History Surgery/Hospitalization HX: PMH;CHF AND PACEMAKER/DEF. SURGERY; LUMPECTOMY ON LEFT SIDE, RT SIDE MASTECTOMY, AND GALLBLADDER. Surgeries: Yes (LUMPECTOMY-LEFT BREAST) Breast, Gallbladder, Tubal Ligation Respiratory: No Cardiac: Yes (CHF; NON-ISCHEMIC CARDIOMYOPATHY. ) Cardiomyopathy Neurological: No Reproductive Disorders: No CATECHIST History: Tubal Ligation Sexually Transmitted Disease: No HIV/AIDS: No Genitourinary: No Gastrointestinal: No Polyps Musculoskeletal: Yes Arthritis Endocrine: No HEENT: No Loss of Vision: Bilateral Hearing Impairment: Denies Cancer: Yes (LEFT LUMPECTOMY, CHEMO AND RADIATION--DX IN 1980) Breast Did You Recieve Any Treatments: Yes What Type of Treatment Did You: Chemotherapy, Radiation, Surgical Intervention Psychosocial: No Integumentary: No Blood Disorders: No Adverse Reaction/Blood Tranf: No (N/A) Family Medical History No Pertinent Family Hx Review of Systems-General Constitutional: see HPI Physical Exam-General Problems Physical Exam Vital Signs Vital Signs - First Documented 05/17/22 07:50 Temp 35.2 Pulse 122 Resp 20 B/P (MAP) 119/57 (77) Pulse Ox 99 O2 Delivery Room Air Capillary Refill : Less Than 3 Seconds General Appearance: no apparent distress Neck: supple Extremities: swelling Neurologic/Psychiatric: alert, oriented x 3 Skin: No cyanosis Assessment/Plan Assessment/Plan Admission Diagnosis/Plan LUIS Due to hypoperfusion in setting of afib/rvr, sepsis continue supportive care for n/v no indication for dialysis avoiding nephrotoxins renally dose meds will stop ivf to avoid overloading as pt is tolerating po well and developing edema discussed she may need to transfer if continues to worsen and pt understands making good amount of urine Afib rvr rate controlled cardiology following Chronic HFrEF due to NICM followed by Dr Woodward in [place] - Echocardiogram of 04-08-[address] Felton showed LVEF 10-15% with severe diffuse hypokinesis. LA and RA dilated. Mod to severe AoR. Mod MR. Mod to severe TR. PASP 50-55 mmHg on dobutamine Hypotension improved UTI receiving abx Thank you for allowing me to participate in the care of this very pleasant patient. Visit was conducted via secure video chat. Pt's questions were answered and she is aware of plan. JACEY HERNANDEZ MD May 20, 2022 09:26
--- NOTE | 2022-05-20 10:14 | Physical Therapy Progress Note ---
Therapy Progress Note Patient adamantly declined PT stating, "I'm not going to move at all today." RN notified and confirms that patient refuses to be turned as well. Will attempt tomorrow. 1 ref ANUJ HART PT May 20, 2022 10:14
--- NOTE | 2022-05-20 11:22 | Occ Therapy Progress Note ---
Therapy Progress Note OT orders received and chart reviewed. OT adamantly declined OT services on this date, stating she doesn't feel good and doesn't want to move. OT educated pt on purpose/benefit of OT, but she continued to refuse services. OT will attempt evaluation again next available date. 1, refusal SAMI CANTRELL OT May 20, 2022 11:22
[2022-05-20] MEDS: SODIUM BICARBONATE 8.4% SYR 150 MEQ in D5W 1000 ML IV SOLUTION 1,000 ML IV SCH (11:31)
--- NOTE | 2022-05-20 11:55 | Tele-ICU Progress Note ---
Subjective Date Seen by a Provider: May 20, 2022 Time Seen by a Provider: 11:55 Subjective/Events-last exam (Tele-ICU Physician , Progress Note ) Service provided via interactive audio and video telecommunications E-CARE system to a patient admitted to ICU bed in [facility]. Patient is seen today due to persistent need of ICU care Available chart/ vitals / labs / Images reviewed Video assessment done using teleICU camera, rest of exam as per RN Discussed with RN Events overnight : Afebrile hemodynamically stable Respiratory - I/O = pos day , neg last shidt Drips: ns 60 Pressors- no levo stopped 05/19 am , still on dobutamine Consultants: patrice alfaro Hospital course: (05/17) 71y/o F admitted with AFib/RVR, CHF. Vomiting. Positive UTI/LUIS. ECHO: EF 20-25%. 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 - 05/20 - nephrology tele -consult pending - cont volume ( using colloids and crystalloids ) with CVP= 7 05/19 , CVP 11 on 05/20 - follow CVP , UO and Cr Shock - LEVO is back - try to wean - cortisol 57 on 05/17 AG severe met acidosis resolved bicarb gtt off vomiting and feeling generally weak ( elevated bilirubin, s/p cholecystectomy - US liver and CT abd/ pelvis reviewed - IMPROVED Hypoglycemia -resolved S/P LUMPECTOMY ON LEFT SIDE, RT SIDE MASTECTOMY -s/pCHEMO AND RADIATION--DX IN 1980 H/o DVT R leg- OAC with Eliquis Lines : R IG 05/17 , r a line , (Central Line Necessity Reviewed) Haddad: + OG: Nutrition: po Analgesia: Anxiety/ delirium VTE Prophylaxis: eliquis ON HOLD 05/19 -> Stress Ulcer Prophylaxis: ppi Plans in collaboration with bedside consultants and IM MDs. Discussed with RN to reach out if any questions or concerns A total of 32 minutes of critical care time was devoted to this patient today, required to treat and/or prevent further deterioration of critical care condition ( as above ) . I am remotely monitoring this patient from another state. I am unable to do the bedside exam, and history/physical and pertinent information is taken from other notes in the computer and bedside staff. . Sepsis Event Evaluation Height, Weight, BMI Height: 5'8.00" Weight: 230lbs. 0.0oz. 104.141323so; 38.23 BMI Method:Stated Focused Exam Lactate Level 05/18/22 00:42: Lactic Acid Level 6.67*H 05/18/22 04:46: Lactic Acid Level 3.78*H 05/19/22 03:45: Lactic Acid Level 1.06 Exam Exam Patient acknowledged, consented, and participated in this virtual visit which was conducted using real time audio/video Vital Signs Date Time Temp Pulse Resp B/P (MAP) Pulse Ox O2 Delivery O2 Flow Rate FiO2 05/20/22 11:00 109 15 91 Nasal Cannula 2.00 126/52 (76) 05/20/22 10:31 121 132/51 05/20/22 10:00 123 94 Nasal Cannula 2.00 113/40 (64) 05/20/22 09:00 82 16 92 Nasal Cannula 2.00 114/51 (72) 05/20/22 08:15 96 Room Air 05/20/22 08:00 109 15 99 Nasal Cannula 2.00 117/45 (69) 05/20/22 08:00 36.8 05/20/22 07:00 111 18 99 Nasal Cannula 2.00 113/53 (73) 05/20/22 07:00 92 05/20/22 06:00 94 19 99 Nasal Cannula 2.00 114/53 (73) 05/20/22 05:00 102 14 99 Nasal Cannula 2.00 118/55 (76) 05/20/22 04:00 114 15 99 Nasal Cannula 2.00 115/50 (71) 05/20/22 04:00 36.1 05/20/22 04:00 99 Nasal Cannula 2.00 05/20/22 03:00 104 15 100 Nasal Cannula 2.00 127/50 (75) 05/20/22 02:00 124 15 100 Nasal Cannula 2.00 126/57 (80) 05/20/22 01:00 96 05/20/22 01:00 101 20 100 Nasal Cannula 2.00 120/51 (74) 05/20/22 00:45 106 107/44 05/20/22 00:00 98 Nasal Cannula 2.00 05/20/22 00:00 126 20 100 Nasal Cannula 2.00 105/47 (66) 05/19/22 23:00 96 20 100 Nasal Cannula 2.00 112/44 (66) 05/19/22 22:00 96 24 99 Nasal Cannula 2.00 116/51 (72) 05/19/22 21:45 Nasal Cannula 2.00 05/19/22 21:00 129 24 98 Room Air 121/48 (72) 05/19/22 20:00 36.2 125 13 112/42 (65) 96 Room Air 05/19/22 20:00 96 Room Air 05/19/22 19:00 97 14 97 Room Air 126/53 (77) 05/19/22 19:00 128 05/19/22 16:00 94 Room Air 05/19/22 16:00 36.3 125 16 104/61 (75) 97 05/19/22 15:46 111 92/44 05/19/22 15:00 91 16 96 Room Air 05/19/22 14:00 123 16 98 Room Air 05/19/22 12:40 86 05/19/22 12:00 36.2 05/19/22 12:00 94 Room Air 05/19/22 12:00 93 35 94 Room Air I & O 05/20/22 07:00 Intake Total 2900.25 ml Output Total 1850 ml Balance 1050.25 ml Height & Weight Height: 5'8.00" Weight: 230lbs. 0.0oz. 104.502946jl; 38.23 BMI Method:Stated General Appearance: No Apparent Distress, Obese HEENT: PERRL/EOMI, Normal ENT Inspection Neck: Non Tender, Supple, Other (right IJ central line) Respiratory: Chest Non Tender, No Accessory Muscle Use, No Respiratory Distress Cardiovascular: Regular Rate, Rhythm Capillary Refill: Less Than 3 Seconds Peripheral Pulses: 2+ Dorsalis Pedis (R), 2+ Left Dors-Pedis (L), 2+ Radial Pulses (R), 2+ Radial Pulses (L) Gastrointestinal: non tender, soft; No distended Extremity: Non Tender, No Calf Tenderness Neurologic/Psychiatric: Alert, Oriented x3, No Motor/Sensory Deficits Skin: Warm/Dry, Jaundice Lymphatic: No Adenopathy Results Lab Laboratory Tests 05/19/22 03:45 05/20/22 04:40 Assessment/Plan Assessment/Plan (Tele-ICU Physician , Progress Note ) Service provided via interactive audio and video telecomPolantis E-CARE system to a patient admitted to ICU bed in [facility]. Patient is seen today due to persistent need of ICU care Available chart/ vitals / labs / Images reviewed Video assessment done using teleICU camera, rest of exam as per RN Discussed with RN Events overnight : Afebrile hemodynamically stable Respiratory - I/O = pos day , neg last shidt Drips: ns 60 Pressors- no levo stopped 05/19 am , still on dobutamine Consultants: patrice alfaro Hospital course: (05/17) 71y/o F admitted with AFib/RVR, CHF. Vomiting. Positive UTI/LUIS. ECHO: EF 20-25%. 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 - 05/20 - nephrology tele -consult pending - cont volume ( using colloids and crystalloids ) with CVP= 7 05/19 , CVP 11 on 05/20 - follow CVP , UO and Cr Shock - LEVO is back - try to wean - cortisol 57 on 05/17 AG severe met acidosis resolved bicarb gtt off vomiting and feeling generally weak ( elevated bilirubin, s/p cholecystectomy - US liver and CT abd/ pelvis reviewed - IMPROVED Hypoglycemia -resolved S/P LUMPECTOMY ON LEFT SIDE, RT SIDE MASTECTOMY -s/pCHEMO AND RADIATION--DX IN 1980 H/o DVT R leg- OAC with Eliquis Lines : R IG 05/17 , r a line , (Central Line Necessity Reviewed) Haddad: + OG: Nutrition: po Analgesia: Anxiety/ delirium VTE Prophylaxis: eliquis ON HOLD 05/19 -> Stress Ulcer Prophylaxis: ppi Plans in collaboration with bedside consultants and IM MDs. Discussed with RN to reach out if any questions or concerns A total of 32 minutes of critical care time was devoted to this patient today, required to treat and/or prevent further deterioration of critical care condition ( as above ) . I am remotely monitoring this patient from another state. I am unable to do the bedside exam, and history/physical and pertinent information is taken from other notes in the computer and bedside staff. . RANDI MCCLOUD MD May 20, 2022 11:55
--- NOTE | 2022-05-20 12:18 | Progress Note - Cardiology ---
Cardiology SOAP Progress Note Subjective: some nose bleeds gen malaise and weakness no cp or palp or syncope no n/v currently no focal weakness Objective: I&O/Vital Signs 05/20/22 05/20/22 05/20/22 05/20/22 00:45 01:00 01:00 02:00 Pulse 106 101 96 124 Resp 20 15 B/P (MAP) 107/44 120/51 (74) 126/57 (80) Pulse Ox 100 100 O2 Delivery Nasal Cannula Nasal Cannula O2 Flow Rate 2.00 2.00 05/20/22 05/20/22 05/20/22 05/20/22 03:00 04:00 04:00 04:00 Temp 36.1 Pulse 104 114 Resp 15 15 B/P (MAP) 127/50 (75) 115/50 (71) Pulse Ox 100 99 99 O2 Delivery Nasal Cannula Nasal Cannula Nasal Cannula O2 Flow Rate 2.00 2.00 2.00 05/20/22 05/20/22 05/20/22 05/20/22 05:00 06:00 07:00 07:00 Pulse 102 94 92 111 Resp 14 19 18 B/P (MAP) 118/55 (76) 114/53 (73) 113/53 (73) Pulse Ox 99 99 99 O2 Delivery Nasal Cannula Nasal Cannula Nasal Cannula O2 Flow Rate 2.00 2.00 2.00 05/20/22 05/20/22 05/20/22 05/20/22 08:00 08:00 08:15 09:00 Temp 36.8 Pulse 109 82 Resp 15 16 B/P (MAP) 117/45 (69) 114/51 (72) Pulse Ox 99 96 92 O2 Delivery Nasal Cannula Room Air Nasal Cannula O2 Flow Rate 2.00 2.00 05/20/22 05/20/22 05/20/22 05/20/22 10:00 10:31 11:00 11:55 Temp 37.1 Pulse 123 121 109 Resp 15 B/P (MAP) 132/51 113/40 (64) 126/52 (76) Pulse Ox 94 91 O2 Delivery Nasal Cannula Nasal Cannula O2 Flow Rate 2.00 2.00 05/20/22 00:00 Intake Total 2150.25 ml Output Total 775 ml Balance 1375.25 ml Weight (Pounds): 230 Weight (Ounces): 0.0 Weight (Calculated Kilograms): 104.694483 Constitutional: AAO x 3, well-developed, well-nourished, other (yellowish appearance) Respiratory: No accessory muscle use; chest expansion is symmetric, chest is bilaterally symmetric, other (fair to good, bilateral air entry that is diminished at the bases) Cardiovascular: regular rate-rhythm, S1 and S2, systolic murmur (soft YASSINE at card base) Gastrointestional: No tender; soft; No guarding, No rebound; audible bowel sounds Extremities: No clubbing, No cyanosis; no lower extremity edema bilateral; No significant edema Neurologic/Psychiatric: other (able to move all limbs) Skin: warm/dry, jaundice; No rash on exposed areas, No ulcerations on exposed areas Results/Procedures: Labs Laboratory Tests 05/19/22 15:26: Glucometer 89 05/19/22 16:00: Blood Gas Puncture Site RIGHT ARTLINE, Blood Gas Patient Temperature 36.2, Arterial Blood pH 7.47H, Arterial Blood Partial Pressure CO2 40, Arterial Blood Partial Pressure O2 74L, Arterial Blood HCO3 29H, Arterial Blood Total CO2 30.2, Arterial Blood Oxygen Saturation 97, Arterial Blood Base Excess 5.1H, Anupam Test YES-POS, Blood Gas Ventilator Setting NA, Blood Gas Inspired Oxygen NA 05/19/22 20:24: Glucometer 109 05/20/22 04:40: White Blood Count 7.6, Red Blood Count 3.79L, Hemoglobin 10.7L, Hematocrit 33L, Mean Corpuscular Volume 86, Mean Corpuscular Hemoglobin 28, Mean Corpuscular Hemoglobin Concent 33, Red Cell Distribution Width 17.7H, Platelet Count 135, Mean Platelet Volume 10.6, Immature Granulocyte % (Auto) 1, Neutrophils (%) (Auto) 81H, Lymphocytes (%) (Auto) 7L, Monocytes (%) (Auto) 10, Eosinophils (%) (Auto) 1, Basophils (%) (Auto) 0, Neutrophils # (Auto) 6.1, Lymphocytes # (Auto) 0.5L, Monocytes # (Auto) 0.7, Eosinophils # (Auto) 0.1, Basophils # (Auto) 0.0, Immature Granulocyte # (Auto) 0.1, Prothrombin Time 47.3*H, INR Comment 5.1*H, Activated Partial Thromboplast Time 42H, Sodium Level 136, Potassium Level 3.8, Chloride Level 97L, Carbon Dioxide Level 26, Anion Gap 13, Blood Urea Nitrogen 46H, Creatinine 3.15#H, Estimat Glomerular Filtration Rate 15, BUN/Creatinine Ratio 15, Glucose Level 88, Calcium Level 8.9, Corrected Calcium 9.9, Phosphorus Level 3.3, Magnesium Level 2.0, Total Bilirubin 6.0H, Aspartate Amino Transf (AST/SGOT) 1354#H, Alanine Aminotransferase (ALT/SGPT) 2487#H, Alkaline Phosphatase 93, Total Protein 5.0L, Albumin 2.8L, Digoxin Level 1.46 05/20/22 10:26: Glucometer 91 Microbiology 05/17/22 Urine Culture - Final, Complete Escherichia coli 05/17/22 Blood Culture - Preliminary, Resulted Probable Coag Negative Staph 05/17/22 MRSA Screen - Final, Complete MRSA not isolated A/P: Assessment: Shock: septic and/or cardiogenic - mild troponin elevation due to type 2 MA due to hypotension - requiring pressor support Hepatitis and marked jaundice of undetermined etiology - managed by Hosp and ICU svces Coagulopathy - due to hepatic failure and due to apixaban PAF - OAC with Eliquis 5mg BID - did not take on 05/15 and 05/16/22 due to n/v, resumed today - has been non-compliant with Amiodarone tx on 05/15 and 05/16/22 d/t n/v - stopped due to hepatic failure during this hospitalization Chronic HFrEF due to NICM (primarily managed by her electronic prepress system operator Dr Woodward in [place], [place]) - Echocardiogram of 04-08-[address] Felton showed LVEF 10-15% with severe diffuse hypokinesis. LA and RA dilated. Mod to severe AoR. Mod MR. Mod to severe TR. PASP 50-55 mmHg - She reports she had a sleep study done that was "inconclusive" - she does not use CPAP or supplemental oxygen - managed by Dr. Kirk - AICD - implanted in September 2021 at [facility] (single chamber device) - followed by Dr. Woodward - Echo on 05-17-22: LVEF 20-25%, global hypokinesis of LV, mild to mod MR, PASP 35-40 mmHg Acute renal failure, worsening - ATN due to hypotension vs hepatorenal syndrome - Cr worse this morning HLD - statin tx H/o DVT R leg - OAC with Eliquis H/O Breast Cancer - has had a mastectomy Plan: * Continue iv dobutamine to improve cardiac output * Continue iv fluids as needed and as tolerated * D/c dig due to renal failure and level 1.46 * Not suitable for bb or NIRALI-inhib/ARB due to low bp and ac renal failure * Monitor labs closely * Treat coagulopathy. Hold apixaban for now * Discussed with Dr Avitia today * We advise transfer to tertiary care facility d/t multi-system involvement CHAU POPE MD FACP FACC CCDS May 20, 2022 12:18
--- NOTE | 2022-05-20 14:28 | Progress Note - Hospitalist ---
MILAGROS ARAUJO 05/20/22 1428: Subjective HPI/CC On Admission Date Seen by Provider: May 20, 2022 Time Seen by Provider: 08:30 Subjective/Events-last exam Pt is feeling about the same as yesterday. Pt reports having another nose bleed which is potentially due to her receiving Vit K due to her PT and INR levels. Pt states that he appetite is so/so due to a painful mouth secondary to previous episodes of vomiting. Pt doesn't have any complaints currently. Review of Systems General: No Chills, No Night Sweats HEENT: No Head Aches, No Visual Changes, No Sinus Congestion, No Sore Throat; Other (Epistaxis ) Cardiovascular: No: Chest Pain, Palpitations, Edema Gastrointestinal: Other (Abdominal Discomfort); No: Nausea, Vomiting, Diarrhea, Constipation Genitourinary: No Dysuria, No Frequency Musculoskeletal: No: other Neurological: No: Weakness, Numbness, Confusion Focused Exam Lactate Level 05/18/22 00:42: Lactic Acid Level 6.67*H 05/18/22 04:46: Lactic Acid Level 3.78*H 05/19/22 03:45: Lactic Acid Level 1.06 Objective Exam Vital Signs Vital Signs Date Time Temp Pulse Resp B/P (MAP) Pulse Ox O2 Delivery O2 Flow Rate FiO2 05/20/22 13:00 126 20 94 Nasal Cannula 2.00 137/54 (81) 05/20/22 11:55 37.1 Capillary Refill : Less Than 3 Seconds General Appearance: No Apparent Distress Respiratory: Chest Non Tender, Lungs Clear, Normal Breath Sounds Cardiovascular: Normal Peripheral Pulses, Irregularly Irregular Gastrointestinal: Normal Bowel Sounds, Non Tender, Soft, Distended Rectal: Deferred Extremity: No Calf Tenderness, Swelling Neurologic/Psychiatric: Alert, Oriented x3 Results/Procedures Lab Laboratory Tests 05/20/22 04:40 Patient resulted labs reviewed. Imaging: Reviewed Imaging Report Assessment/Plan Assessment and Plan Assess & Plan/Chief Complaint Septic Shock Secondary to E. Coli UTI absent bacterimia Cardiogenic Shock Ischemic Hepatitis Acute Kidney Injury Type II NSTEMI Lactic Acidosis Hypoglycemia Normal WBC Liver Enzymes improving Continue Abx Continue IV Fluids Worsening BUN and Cr Nephrology Consulted PAF HFrEF Per Cardiology Digoxin control rate and output Hold Eliquis due to nose bleed Dobutamine Gilbert's Disease History of elevated Total Bilirubin Direct and Indirect ordered Indirect Elevated OSMANY NAILS MD 05/20/22 1737: Subjective HPI/CC On Admission Time Seen by Provider: 10:30 Objective Exam General Appearance: No Apparent Distress, Obese Respiratory: Lungs Clear, No Respiratory Distress Cardiovascular: No Murmur, Tachycardia Gastrointestinal: Normal Bowel Sounds, Soft Extremity: Normal Inspection, Pedal Edema Neurologic/Psychiatric: Alert, Normal Mood/Affect, Motor Weakness Skin: Warm/Dry Assessment/Plan Assessment and Plan Assess & Plan/Chief Complaint Wean pressors as able. BUN/Cr worsening, but urine output increasing, likely secondary to ATN. Nephrology consulted. Liver enzymes improving, no intrinsic liver issues, recovering from shock liver. Continue antibiotics for UTI. Critical Care: Critically Ill Patient Diagnosis/Problems Diagnosis/Problems (1) Septic shock Status: Acute (2) Cardiogenic shock Status: Acute (3) E. coli UTI Status: Acute (4) Lactic acidosis Status: Resolved Resolution Date/Time: 05/19/22 @ 19:07 (5) Shock liver Status: Acute (6) LUIS (acute kidney injury) Status: Acute (7) ATN (acute tubular necrosis) Status: Acute (8) NSTEMI (non-ST elevation myocardial infarction) Status: Acute (9) Acute on chronic HFrEF (heart failure with reduced ejection fraction) Status: Acute (10) Unconjugated hyperbilirubinemia Status: Acute (11) Gilbert syndrome Status: Chronic Supervisory-Addendum Brief Verification & Attestation Participated in pt care: history, MDM, physical Personally performed: exam, history, MDM, supervision of care Care discussed with: Medical Student Procedures: n/a Results interpretation: Verified all documentation A medical student performed and documented this service in my presence. I reviewed and verified all information documented by the medical student and made modifications to such information, when appropriate. I personally performed the physical exam and medical decision making. MILAGROS ARAUJO May 20, 2022 14:28 OSMANY NAILS MD May 20, 2022 17:37
[2022-05-20] MEDS: ONDANSETRON 4 MG/2 ML (SDV) Z0FRAN IV PRN (18:52)
[2022-05-20] MEDS: cefTRIAXone 2,000 MG in NS (IVPB) 50 ML IV SCH (18:52)
[2022-05-21] MEDS: NOREPINEPHRINE 8 MG/250 ML 250 ML IV SCH ×2 (01:09→16:28)
[2022-05-21] MEDS: DOBUTamine DRIP 250 ML IV SCH ×3 (04:16→23:40)
[2022-05-21 05:19] LABS: BASOPHILS % (AUTO) 0 % (0-10); EOSINOPHILS # (AUTO) 0.1 10^3/uL (0.0-0.3); EOSINOPHILS % (AUTO) 1 % (0-10); HEMATOCRIT 33 % (35-52); HEMOGLOBIN 10.7 g/dL (11.5-16.0); LYMPHOCYTES # (AUTO) 0.7 10^3/uL (1.0-4.0); LYMPHOCYTES % (AUTO) 8 % (12-44); MEAN CORPUSCULAR HEMOGLOBIN 28 pg (25-34); MEAN CORPUSCULAR HGB CONC 33 g/dL (32-36); MEAN CORPUSCULAR VOLUME 85 fL (80-99); MEAN PLATELET VOLUME 10.7 fL (9.0-12.2); MONOCYTES # (AUTO) 1.1 10^3/uL (0.0-1.0); MONOCYTES % (AUTO) 13 % (0-12); NEUTROPHILS # (AUTO) 6.6 10^3/uL (1.8-7.8); NEUTROPHILS % (AUTO) 77 % (42-75); PLATELET COUNT 145 10^3/uL (130-400); WHITE BLOOD COUNT 8.6 10^3/uL (4.3-11.0)
[2022-05-21 05:56] LABS: ALBUMIN 2.9 GM/DL (3.2-4.5); BILIRUBIN,TOTAL 6.1 MG/DL (0.1-1.0); CALCIUM 9.5 MG/DL (8.5-10.1); CREATININE SERUM 3.54 MG/DL (0.60-1.30); MAGNESIUM 2.1 MG/DL (1.6-2.4); PHOSPHORUS 4.1 MG/DL (2.3-4.7); TOTAL PROTEIN 5.3 GM/DL (6.4-8.2)
[2022-05-21] MEDS: POTASSIUM CL 10MEQ/50ML IVPB 50 ML IV SCH (06:05)
[2022-05-21] MEDS: KCL 20 MEQ TAB (K-DUR) PO SCH (06:05)
[2022-05-21] MEDS: inSUlin ASPART (NovoLOG) 1 UNIT/0.01 ML (CHARGE PER UNIT) SC SCH ×4 (06:05→21:00)
[2022-05-21] MEDS: MAGNESIUM 1 GM/100 ML IVPB 100 ML IV SCH (06:05)
[2022-05-21] MEDS: SENNOSIDES 8.6 MG (SENOKOT) TAB PO SCH ×2 (08:41→21:00)
[2022-05-21] MEDS: APIXABAN 5 MG (ELIQUIS) TABLET PO SCH ×3 (08:41→20:55)
[2022-05-21] MEDS: DOCUSATE SODIUM 100 MG (COLACE) CAP PO SCH ×2 (08:41→21:00)
--- NOTE | 2022-05-21 10:11 | Tele-ICU Progress Note ---
Subjective Date Seen by a Provider: May 21, 2022 Time Seen by a Provider: 10:11 Subjective/Events-last exam (Tele-ICU Physician , Progress Note ) Service provided via interactive audio and video telecommunications E-CARE system to a patient admitted to ICU bed in [facility]. Patient is seen today due to persistent need of ICU care Available chart/ vitals / labs / Images reviewed Video assessment done using teleICU camera, rest of exam as per RN Discussed with RN Events overnight : Afebrile hemodynamically stable Respiratory - 2l I/O = pos 400 Drips: Pressors- no levo stopped 05/19 am , still on dobutamine Consultants: patrice alfaro Hospital course: (05/17) 71y/o F admitted with AFib/RVR, CHF. Vomiting. Positive UTI/LUIS. ECHO: EF 20-25%. mild/mod mitral regurg, poor study so cannot eval other valves (05/18) Urine culture: e.coli (05/19) ARF , dobs 5 , INR > 10 - received 2.5 mg VIT K , bicarb gtt STOPPED 05/20 worsenign DEE , cr 3, back on LEVO , , cont dops5 , nephrology consiult A/P A fib RVR - as per cards , HR is better controlled now, OFF amio gtt, , OFF dig now - [facility] HAND on Eliquis - on hold now with coagulopathy UTI - Ecoli cx 05/17 - pansensitive - Zosyn 05/17 - changed to ceftriaxone 05/19 HFrEF (04/08/20 echo with LVEF 10-15%, severe diffuse hypokinesis - Echo on 05-17-22: LVEF 20-25%, global hypokinesis of LV, mild to mod MR, PASP 35-40 mmHg - on dobs 5 as per cards ELEV liver enzymes - in part is ischemic hepatitis ( + Zosyn ) - IMPROVING - arrived with abnormal LFT - viral panel negative Coagulapathy ( with liver failure and on NOAC) - INR >10 05/19 - received 2.5 mg VIT K - follow LUIS - due to all above - worsening - 05/19 - bicarb stopped - 05/20 - nephrology tele -consult done - cont volume ( using colloids and crystalloids ) with CVP= 7 05/19 , CVP 11 on 05/20 --fluid stopped - follow CVP , UO and Cr Shock- cardiogenic - LEVO is back - MAP > 65 , try to wean - cortisol 57 on 05/17 AG severe met acidosis resolved bicarb gtt off vomiting and feeling generally weak ( elevated bilirubin, s/p cholecystectomy - US liver and CT abd/ pelvis reviewed - IMPROVED Hypoglycemia -resolved S/P LUMPECTOMY ON LEFT SIDE, RT SIDE MASTECTOMY -s/pCHEMO AND RADIATION--DX IN 1980 H/o DVT R leg- OAC with Eliquis ?SELINA- -she reports she had a sleep study done that was "inconclusive" - she does not use CPAP or supplemental oxygen WILL BENEFIT FROM TRANSFER TO [facility] Lines : R IG 05/17 , r a line , (Central Line Necessity Reviewed) Haddad: + OG: Nutrition: po Analgesia: Anxiety/ delirium VTE Prophylaxis: eliquis ON HOLD 05/19 -> Stress Ulcer Prophylaxis: ppi Plans in collaboration with bedside consultants and IM MDs. Discussed with RN to reach out if any questions or concerns A total of 32 minutes of critical care time was devoted to this patient today, required to treat and/or prevent further deterioration of critical care condition ( as above ) . I am remotely monitoring this patient from another state. I am unable to do the bedside exam, and history/physical and pertinent information is taken from other notes in the computer and bedside staff. . Sepsis Event Evaluation Height, Weight, BMI Height: 5'8.00" Weight: 230lbs. 0.0oz. 104.270596mv; 38.43 BMI Method:Stated Focused Exam Lactate Level 05/19/22 03:45: Lactic Acid Level 1.06 Exam Exam Patient acknowledged, consented, and participated in this virtual visit which was conducted using real time audio/video Vital Signs Date Time Temp Pulse Resp B/P (MAP) Pulse Ox O2 Delivery O2 Flow Rate FiO2 05/21/22 10:00 97 11 134/42 (72) 96 Nasal Cannula 2.00 05/21/22 09:00 76 16 142/61 (88) 95 Nasal Cannula 2.00 05/21/22 08:00 93 123/45 (71) 94 Nasal Cannula 2.00 05/21/22 07:00 92 05/21/22 07:00 92 15 140/47 (78) 98 Nasal Cannula 2.00 05/21/22 06:00 93 17 136/48 (77) 96 Nasal Cannula 2.00 05/21/22 05:00 90 26 109/43 (65) 97 Nasal Cannula 2.00 05/21/22 04:16 93 128/47 05/21/22 04:00 92 17 128/47 (74) 96 Nasal Cannula 2.00 05/21/22 04:00 96 Room Air 05/21/22 03:00 94 22 125/47 (73) 95 Nasal Cannula 2.00 05/21/22 02:00 93 31 114/45 (68) 94 Nasal Cannula 2.00 05/21/22 01:09 94 133/48 05/21/22 01:00 94 05/21/22 01:00 94 17 112/41 (64) 94 Nasal Cannula 2.00 05/21/22 00:00 93 22 114/42 (66) 94 Nasal Cannula 2.00 05/20/22 23:57 95 Room Air 05/20/22 23:00 95 17 123/45 (71) 90 Nasal Cannula 2.00 05/20/22 22:00 96 22 127/42 (70) 94 Nasal Cannula 2.00 05/20/22 21:00 98 20 146/50 (82) 96 Nasal Cannula 2.00 05/20/22 20:07 99 146/54 05/20/22 20:00 96 Room Air 05/20/22 20:00 98 16 147/51 (83) 98 Nasal Cannula 2.00 05/20/22 19:40 36.5 05/20/22 19:30 05/20/22 19:00 Arterial Line 05/20/22 19:00 103 17 140/55 (83) 98 Nasal Cannula 2.00 05/20/22 19:00 102 05/20/22 18:00 101 12 90 Nasal Cannula 2.00 137/46 (76) 05/20/22 17:00 93 28 93 Nasal Cannula 2.00 124/45 (71) 05/20/22 16:00 123 32 91 Nasal Cannula 2.00 122/48 (72) 05/20/22 16:00 97 Room Air 05/20/22 15:55 36.4 05/20/22 15:00 126 18 91 Nasal Cannula 2.00 132/48 (76) 05/20/22 14:00 125 22 94 Nasal Cannula 2.00 112/46 (68) 05/20/22 13:00 126 20 94 Nasal Cannula 2.00 137/54 (81) 05/20/22 12:59 88 05/20/22 12:00 94 Room Air 05/20/22 12:00 125 92 Nasal Cannula 2.00 138/46 (76) 05/20/22 11:55 37.1 05/20/22 11:00 109 15 91 Nasal Cannula 2.00 126/52 (76) 05/20/22 10:31 121 132/51 I & O 05/21/22 07:00 Intake Total 2250 ml Output Total 1675 ml Balance 575 ml Height & Weight Height: 5'8.00" Weight: 230lbs. 0.0oz. 104.119949gr; 38.43 BMI Method:Stated General Appearance: No Apparent Distress, Obese HEENT: PERRL/EOMI, Normal ENT Inspection Neck: Non Tender, Supple, Other (right IJ central line) Respiratory: Lungs Clear, No Respiratory Distress Cardiovascular: No Murmur, Tachycardia Peripheral Pulses: 2+ Dorsalis Pedis (R), 2+ Left Dors-Pedis (L), 2+ Radial Pulses (R), 2+ Radial Pulses (L) Gastrointestinal: non tender, soft; No distended Extremity: Normal Inspection, Pedal Edema Neurologic/Psychiatric: Alert, Normal Mood/Affect, Motor Weakness Skin: Warm/Dry Lymphatic: No Adenopathy Results Lab Laboratory Tests 05/20/22 04:40 05/21/22 04:45 Assessment/Plan Assessment/Plan 1 RANDI MCCLOUD MD May 21, 2022 10:11
--- NOTE | 2022-05-21 10:56 | Occupational Therapy Eval ---
OT Evaluation-General/PLF Medical Diagnosis Admission Date May 17, 2022 at 09:10 Medical Diagnosis: Septic shock, lactic acidosis Onset Date: May 17, 2022 Therapy Diagnosis Therapy Diagnosis: Weakness, Decreased ADL skills Height/Weight Height (Feet): 5 Height (Inches): 8.00 Weight (Pounds): 230 Weight (Ounces): 0.0 Precautions Precautions/Isolations: Fall Prevention, Standard Precautions Weight Bear Status Weight Bearing Restriction: Weight Bearing/Tolerated Referral Physician: Dr. Avitia Referral Reason: Activity Tolerance, Self Care, Evaluation/Treatment, Strengthening/ROM Medical History Pertinent Medical History: Arthritis, Heart Failure, HTN Additional Medical History A-fib, chemo/radiation, breast cancer Reviewed History: Yes Social History Home: Single Level Current Living Status: Alone Entry Into Home: Ramp ADL-Prior Level of Function SCALE: Activities may be completed with or without assistive devices. 4-Gbsqvfulrk-ysyfbik completes the activity by him/herself with no assistance from a helper. 5-Set-up or Clean-up Assistance-helper sets up or cleans up; patient completes activity. [place] assists only prior to or following the activity. 4-Supervision or Touching Assistance-helper provides verbal cues and/or touching/steadying and/or contact guard assistance as patient completes activity. Assistance may be provided throughout the activity or intermittently. 3-Partial/Moderate Assistance-helper does LESS THAN HALF the effort. [place] lifts, holds or supports trunk or limbs, but provides less than half the effort. 2-Substantial/Maximal Assistance-helper does MORE THAN HALF the effort. [place] lifts or holds trunk or limbs and provides more than half the effort. 4-Smmmhgzmd-yaltjw does ALL the effort. Patient does none of the effort to complete the activity. Or, the assistance of 2 or more helpers is required for the patient to complete the activity. If activity was not attempted, code reason: 7-Patient Refused. 9-Not Applicable-not attempted and the patient did not perform the activity before the current illness, exacerbation or injury. 10-Not Attempted due to Environmental Limitations-(lack of equipment, weather restraints, etc.). 88-Not Attempted due to Medical Conditions or Safety Concerns. ADL PLOF Comments Pt. was independent with daily tasks. Pt's spouse 2 years ago. She has a supportive son. Self Care: Independent Functional Cognition: Independent DME/Equipment: Tub/Shower Drive Self: Yes OT Current Status Subjective Pt. does not report pain, but reports discomfort from lying in the bed. Appearance Pt. in bed with cold washcloth over her eyes when OT entered room. She does agree to work with OT. Mental Status/Objective Patient Orientation: Person, Place, Time, Situation Attachments: Haddad Catheter, IV Current Edema: Pt. has significant edema in bilateral UE ADL-Treatment Eating (QC): 5 On/Off Footwear (QC): 2 (Pt. demonstrates capability to don slipper socks with max assist.) Toileting Hygiene (QC): 1 (Pt. has catheter, and was incontinent of bowel in bed. Required dependent assistance to cleanse rear sole area.) Other Treatments Pt. states that she is hot and uncomfortable in the bed. OT encourages pt. to sit up. Pt. recognizes that she has been incontinent of bowel. Pt. able to roll side to side with min assist while OT fully cleansed rear sole area. After this pt. requires min/mod assistance to sit EOB. She has many tubes/lines, including neck IV and OT has to maneuver them for safety. Pt. is able to sit EOB and attempt to brush her hair. She is able to get the sides and the front, but unable to fully reach the back. OT does this for her. OT washes her back and assists her to comfortable position on side of bed. Pt. states that she feels good in this spot, would like to sit up longer and take deep breaths. Pt. has call light, phone, and her tray. Nurse aide in room and aware pt. seated EOB. All needs met. Education OT Patient Education: Correct positioning, Modified ADL techniques, Progress toward Goal/Update tx plan, Purpose of tx/functional activities, Reviewed precautions, Rehab process, Transfer techniques Teaching Recipient: Patient Teaching Methods: Demonstration, Discussion Response to Teaching: Verbalize Understanding, Return Demonstration OT Short Term Goals Short Term Goals Time Frame: May 28, 2022 Eatin Oral hygiene: 5 Toileting hygiene: 3 Shower/bathe self: 3 Upper body dressin Lower body dressin Putting on/taking off footwear: 3 OT Longterm Goals Metal [employer] Blocker Goals Time Frame: Jun 04, 2022 Eating (QC): 6 Oral Hygiene (QC): 6 Toileting Hygiene (QC): 6 Shower/Bathe Self (QC): 5 Upper Body Dressing (QC): 6 Lower Body Dressing (QC): 6 On/Off Footwear (QC): 6 (With AE) Additional Goals: 1-Demonstrate ADL Tasks, 2-Verbalize Understanding, 3- ImproveStrength/Jamir 1=Demonstrate adherence to instructed precautions during ADL tasks. 2=Patient will verbalize/demonstrate understanding of assistive devices/modifications for ADL. 3=Patient will improve strength/tolerance for activity to enable patient to perform ADL's. OT Education/Plan Problem List/Assessment Assessment: Decreased Activ Tolerance, Decreased UE Strength, Dependent T ransfers, Impaired Bed Mobility, Impaired Funct Balance, Impaired I ADL's, Impaired Self-Care Skills Discharge Recommendations Plan/Recommendations: Continue POC Therapy Discharge Recommendati: Post Acute OT Equpiment Recommendations-D/C: Hip Kit Treatment Plan/Plan of Care Treatment,Training & Education: Yes Patient would benefit from OT for education, treatment and training to promote independence in ADL's, mobility, safety and/or upper extremity function for ADL's. Plan of Care: ADL Retraining, Functional Mobility, UE Funct Exercise/Act Treatment Duration: Jun 04, 2022 Frequency: 3 times per week (3-5x/week) Estimated Hrs Per Day: .25 hour per day Agreement: Yes Rehab Potential: Good Time Start Time: 10:20 Stop Time: 10:45 DATE: May 21, 2022 Total Time Billed (hr/min): 25 Billed Treatment Time 1, EVH x 10minutes, ADL x 15minutes JOYCE PIMENTEL OT May 21, 2022 10:56
--- NOTE | 2022-05-21 11:13 | Physical Therapy Evaluation ---
PT Evaluation-General Medical Diagnosis Admission Date May 17, 2022 at 09:10 Medical Diagnosis: Septic shock, lactic acidosis Onset Date: May 17, 2022 Therapy Diagnosis Therapy Diagnosis: debility Height/Weight Height (Feet): 5 Height (Inches): 8.00 Weight (Pounds): 230 Weight (Ounces): 0.0 Precautions Precautions/Isolations: Fall Prevention, Standard Precautions Referral Physician: Dr. Avitia Medical History Pertinent Medical History: Arthritis, Heart Failure, HTN Reviewed History: Yes Social History Home: Single Level Current Living Status: Alone Entry Into Home: Ramp Prior Prior Level of Function SCALE: Activities may be completed with or without assistive devices. 3-Webbdvydph-itplzcg completes the activity by him/herself with no assistance from a helper. 5-Set-up or Clean-up Assistance-helper sets up or cleans up; patient completes activity. [place] assists only prior to or following the activity. 4-Supervision or Touching Assistance-helper provides verbal cues and/or touching/steadying and/or contact guard assistance as patient completes a ctivity. Assistance may be provided throughout the activity or intermittently. 3-Partial/Moderate Assistance-helper does LESS THAN HALF the effort. [place] lifts, holds or supports trunk or limbs, but provides less than half the effort. 2-Substantial/Maximal Assistance-helper does MORE THAN HALF the effort. [place] lifts or holds trunk or limbs and provides more than half the effort. 6-Akprgetbq-lfjiny does ALL the effort. Patient does none of the effort to complete the activity. Or, the assistance of 2 or more helpers is required for the patient to complete the activity. If activity was not attempted, code reason: 7-Patient Refused. 9-Not Applicable-not attempted and the patient did not perform the activity before the current illness, exacerbation or injury. 10-Not Attempted due to Environmental Limitations-(lack of equipment, weather restraints, etc.). 88-Not Attempted due to Medical Conditions or Safety Concerns. Bed Mobility: 6 Transfers (B,C,W/C): 6 Gait: 6 Stairs: 6 Indoor Mobility (Ambulation): Independent Stairs: Independent Prior Devices Use: Walker PT Evaluation-Current Subjective States that she will try to do therapy. States that she has been sitting since OT helped her up. Pain Numeric Pain Scale: 0-No Pain ROM/Strength Strength Lower Extremities 3+/5 grossly Transfers Sit to Stand (QC): 4 Gait Does the Patient Walk?: No and Walking Goal IS indicated Mode of Locomotion: Walk Balance Sitting Static: Good Sitting Dynamic: Fair Standing Static: Fair Assessment/Needs 71 y.o. female with debility secondary to prolonged hospitalization. Patient was sitting EOB today and agreed to transfer sit to stand. Unable to ambulate. Rehab Potential: Guarded PT Short Term Goals Short Term Goals Time Frame: May 28, 2022 Roll Left & Right: 5 Sit to lyin Lying to sitting on side of be: 5 Sit to stand: 5 Chair/ioi-oh-fjrrt transfer: 5 Toilet transfer: 5 Car transfer: 5 Walk 10 feet: 5 PT Chronometer Tester Goals Chronometer Tester Goals PT Chronometer Tester Goals Time Frame: Jun 04, 2022 Roll Left & Right (QC): 6 Sit to Lying (QC): 6 Lying-Sitting on Side/Bed(QC): 6 Sit to Stand (QC): 6 Chair/Cxm-wx-Frhla Xfer(QC): 6 Toilet Transfer (QC): 6 Car Transfer (QC): 6 Does the Patient Walk: No and Walking Goal IS indicated Walk 10 feet (QC): 6 Walk 50ft with 2 Turns (QC): 6 Walk 150 ft (QC): 6 1 Step (curb) (QC): 6 4 Steps (QC): 6 PT Plan Problem List Problem List: Activity Tolerance, Functional Strength, Safety, Balance, Gait, Transfer, Bed Mobility, ROM Treatment/Plan Treatment Plan: Continue Plan of Care Treatment Plan: Bed Mobility, Education, Functional Activity Jamir, Functional Strength, Gait, Safety, Therapeutic Exercise, Transfers Treatment Duration: Jun 04, 2022 Frequency: 6 times per week Time Time In: 1045 Time Out: 1100 DATE: May 21, 2022 Total Billed Treatment Time: 15 Total Billed Treatment 1, EV low complexity x 15' NITZA MCDOWELL PT May 21, 2022 11:13
--- NOTE | 2022-05-21 11:20 | Progress Note - Cardiology ---
Cardiology SOAP Progress Note Subjective: Gen weakness and malaise Shortness of breath with activity No cp or palp or syncope No focal weakness No abd pain No n/v/d Objective: I&O/Vital Signs 05/20/22 05/21/22 05/21/22 05/21/22 23:57 00:00 01:00 01:00 Pulse 93 94 94 Resp 22 17 B/P (MAP) 114/42 (66) 112/41 (64) Pulse Ox 95 94 94 O2 Delivery Room Air Nasal Cannula Nasal Cannula O2 Flow Rate 2.00 2.00 05/21/22 05/21/22 05/21/22 05/21/22 01:09 02:00 03:00 04:00 Pulse 94 93 94 Resp 31 22 B/P (MAP) 133/48 114/45 (68) 125/47 (73) Pulse Ox 94 95 96 O2 Delivery Nasal Cannula Nasal Cannula Room Air O2 Flow Rate 2.00 2.00 05/21/22 05/21/22 05/21/22 05/21/22 04:00 04:16 05:00 06:00 Pulse 92 93 90 93 Resp 17 26 17 B/P (MAP) 128/47 (74) 128/47 109/43 (65) 136/48 (77) Pulse Ox 96 97 96 O2 Delivery Nasal Cannula Nasal Cannula Nasal Cannula O2 Flow Rate 2.00 2.00 2.00 05/21/22 05/21/22 05/21/22 05/21/22 07:00 07:00 08:00 09:00 Pulse 92 92 93 76 Resp 15 16 B/P (MAP) 140/47 (78) 123/45 (71) 142/61 (88) Pulse Ox 98 94 95 O2 Delivery Nasal Cannula Nasal Cannula Nasal Cannula O2 Flow Rate 2.00 2.00 2.00 05/21/22 05/21/22 10:00 10:53 Pulse 97 Resp 11 B/P (MAP) 134/42 (72) Pulse Ox 96 O2 Delivery Nasal Cannula Nasal Cannula O2 Flow Rate 2.00 2.00 05/21/22 00:00 Intake Total 1200 ml Output Total 800 ml Balance 400 ml Weight (Pounds): 230 Weight (Ounces): 0.0 Weight (Calculated Kilograms): [phone] Constitutional: AAO x 3, well-developed, well-nourished, other (yellowish appearance) Respiratory: No accessory muscle use; chest expansion is symmetric, chest is bilaterally symmetric, other (fair to good, bilateral air entry that is diminished at the bases) Cardiovascular: regular rate-rhythm, S1 and S2, systolic murmur (soft YASSINE at card base) Gastrointestional: No tender; soft; No guarding, No rebound; audible bowel sounds Extremities: No clubbing, No cyanosis; no lower extremity edema bilateral; No significant edema Neurologic/Psychiatric: other (able to move all limbs) Skin: warm/dry, jaundice; No rash on exposed areas, No ulcerations on exposed areas Results/Procedures: Labs Laboratory Tests 05/20/22 15:16: Glucometer 91 05/20/22 20:21: Glucometer 92 05/21/22 04:45: White Blood Count 8.6, Red Blood Count 3.84, Hemoglobin 10.7L, Hematocrit 33L, Mean Corpuscular Volume 85, Mean Corpuscular Hemoglobin 28, Mean Corpuscular Hemoglobin Concent 33, Red Cell Distribution Width 17.4H, Platelet Count 145, Mean Platelet Volume 10.7, Immature Granulocyte % (Auto) 1, Neutrophils (%) (Auto) 77H, Lymphocytes (%) (Auto) 8L, Monocytes (%) (Auto) 13H, Eosinophils (%) (Auto) 1, Basophils (%) (Auto) 0, Neutrophils # (Auto) 6.6, Lymphocytes # (Auto) 0.7L, Monocytes # (Auto) 1.1H, Eosinophils # (Auto) 0.1, Basophils # (Auto) 0.0, Immature Granulocyte # (Auto) 0.1, Sodium Level 133L, Potassium Level 4.0, Chloride Level 97L, Carbon Dioxide Level 23, Anion Gap 13, Blood Urea Nitrogen 50H, Creatinine 3.54H, Estimat Glomerular Filtration Rate 13, BUN/Creatinine Ratio 14, Glucose Level 86, Calcium Level 9.5, Corrected Calcium 10.4H, Phosph orus Level 4.1, Magnesium Level 2.1, Total Bilirubin 6.1H, Aspartate Amino Transf (AST/SGOT) 484H, Alanine Aminotransferase (ALT/SGPT) 1810#H, Alkaline Phosphatase 94, Total Protein 5.3L, Albumin 2.9L 05/21/22 10:42: Glucometer 99 Microbiology 05/17/22 Urine Culture - Final, Complete Escherichia coli 05/17/22 Blood Culture - Preliminary, Resulted Probable Coag Negative Staph 05/17/22 MRSA Screen - Final, Complete MRSA not isolated Laboratory Tests 05/20/22 04:40 05/21/22 04:45 A/P: Assessment: Shock: septic and/or cardiogenic - mild troponin elevation due to type 2 FL due to hypotension - requiring pressor support Hepatitis and marked jaundice of undetermined etiology - managed by Hosp and ICU svces Coagulopathy - due to hepatic failure and due to apixaban PAF - OAC with Eliquis 5mg BID - did not take on 05/15 and 05/16/22 due to n/v, resumed today - has been non-compliant with Amiodarone tx on 05/15 and 05/16/22 d/t n/v - stopped due to hepatic failure during this hospitalization Chronic HFrEF due to NICM (primarily managed by her transfer driver Dr Woodward in [place], [place]) - Echocardiogram of 04-08-[address] Felton showed LVEF 10-15% with severe diffus e hypokinesis. LA and RA dilated. Mod to severe AoR. Mod MR. Mod to severe TR. PASP 50-55 mmHg - She reports she had a sleep study done that was "inconclusive" - she does not use CPAP or supplemental oxygen - managed by Dr. Kirk - AICD - implanted in September 2021 at [facility] (single chamber device) - followed by Dr. Woodward - Echo on 05-17-22: LVEF 20-25%, global hypokinesis of LV, mild to mod MR, PASP 35-40 mmHg Acute renal failure, worsening - ATN due to hypotension vs hepatorenal syndrome - Cr further worse this morning HLD - statin tx H/o DVT R leg - OAC with Eliquis H/O Breast Cancer - has had a mastectomy Plan: * Continue iv dobutamine to improve cardiac output * Continue iv fluids as needed and as tolerated * D/c dig due to renal failure and level 1.46 * Not suitable for bb or NIRALI-inhib/ARB due to low bp and ac renal failure * Monitor labs closely * Treat coagulopathy. Hold apixaban for now * We advise transfer to tertiary care facility d/t multi-system involvement CHAU POPE MD FACP FAC CCDS May 21, 2022 11:20
--- NOTE | 2022-05-21 13:21 | Progress Note - Hospitalist ---
RU ARAUJOEB 05/21/22 1321: Subjective HPI/CC On Admission Date Seen by Provider: May 21, 2022 Time Seen by Provider: 08:21 Subjective/Events-last exam Pt is doing well and was sitting up in bed during interview. Pt states that last night she vomited dinner. She thinks it's likely due to the texture of the bread that she was given. No nose bleeds today. Pt seems to be retaining fluid; she states that her arms and legs are more swollen today. Pt continues to produce good urine despite worsening BUN and Cr levels. Nephrology consulted yesterday. Review of Systems General: No Chills HEENT: No Head Aches Pulmonary: No Dyspnea, No Cough Cardiovascular: Edema; No: Chest Pain, Palpitations Gastrointestinal: Vomiting; No: Nausea, Diarrhea, Constipation Neurological: No: Weakness, Numbness Focused Exam Lactate Level 05/19/22 03:45: Lactic Acid Level 1.06 Objective Exam Vital Signs Vital Signs Date Time Temp Pulse Resp B/P (MAP) Pulse Ox O2 Delivery O2 Flow Rate FiO2 05/21/22 12:51 93 05/21/22 12:00 21 146/55 (85) 96 Nasal Cannula 2.00 05/21/22 12:00 36.2 Capillary Refill : NONE General Appearance: No Apparent Distress Respiratory: Chest Non Tender, Lungs Clear, Normal Breath Sounds Cardiovascular: No Gallop, Normal Peripheral Pulses, Systolic Murmur, Irregularly Irregular Gastrointestinal: Normal Bowel Sounds, Non Tender, Soft, Distended Rectal: Deferred Extremity: Pedal Edema, Swelling Neurologic/Psychiatric: Alert, Oriented x3 Skin: Normal Color, Warm/Dry Results/Procedures Lab Laboratory Tests 05/21/22 04:45 Patient resulted labs reviewed. Imaging: Reviewed Imaging Report Assessment/Plan Assessment and Plan Assess & Plan/Chief Complaint Septic Shock Improving status Continue Pressor Support as needed E. Coli UTI IV Ceftriaxone LUIS Normal Urine Production Worsening BUN and Cr Nephrology Consulted Atrial Fibrillation w/ RVR Eliquis HFrEF Hold IV Fluids Water PO per Nephrology Ischemic Hepatitis LFTs trending down Continue to monitor Gilbert's Disease Chronic elevation of total Bilirubin OSMANY NAILS MD 05/21/22 1642: Subjective HPI/CC On Admission Time Seen by Provider: 10:20 Objective Exam General Appearance: No Apparent Distress, Obese Respiratory: Lungs Clear, No Respiratory Distress Cardiovascular: No Murmur, Irregularly Irregular Gastrointestinal: Normal Bowel Sounds, Soft Extremity: Normal Inspection, Pedal Edema Neurologic/Psychiatric: Alert, Normal Mood/Affect Skin: Normal Color, Warm/Dry Assessment/Plan Assessment and Plan Assess & Plan/Chief Complaint Continue dobutamine, wean as able. BUN/Cr increasing slowly, urine output also increasing each day. Nephrology following. Consider Lasix. Diagnosis/Problems Diagnosis/Problems (1) Septic shock Status: Acute (2) Cardiogenic shock Status: Acute (3) E. coli UTI Status: Acute (4) ATN (acute tubular necrosis) Status: Acute (5) LUIS (acute kidney injury) Status: Acute (6) Shock liver Status: Acute (7) Unconjugated hyperbilirubinemia Status: Acute (8) Gilbert syndrome Status: Chronic (9) NSTEMI (non-ST elevation myocardial infarction) Status: Acute (10) Lactic acidosis Status: Resolved Resolution Date/Time: 05/19/22 @ 19:07 Supervisory-Addendum Brief Verification & Attestation Participated in pt care: history, MDM, physical Personally performed: exam, history, MDM, supervision of care Care discussed with: Medical Student Procedures: n/a Results interpretation: Verified all documentation A medical student performed and documented this service in my presence. I reviewed and verified all information documented by the medical student and made modifications to such information, when appropriate. I personally performed the physical exam and medical decision making. MILAGROS ARAUJO May 21, 2022 13:21 OSMANY NAILS MD May 21, 2022 16:42
[2022-05-21] MEDS: NS IV 1000 ML 1,000 ML IV SCH (15:52)
[2022-05-21] MEDS: cefTRIAXone 2,000 MG in NS (IVPB) 50 ML IV SCH (18:54)
[2022-05-22 04:56] LABS: BASOPHILS % (AUTO) 0 % (0-10); EOSINOPHILS # (AUTO) 0.2 10^3/uL (0.0-0.3); EOSINOPHILS % (AUTO) 2 % (0-10); HEMATOCRIT 31 % (35-52); HEMOGLOBIN 10.2 g/dL (11.5-16.0); LYMPHOCYTES # (AUTO) 0.7 10^3/uL (1.0-4.0); LYMPHOCYTES % (AUTO) 9 % (12-44); MEAN CORPUSCULAR HEMOGLOBIN 29 pg (25-34); MEAN CORPUSCULAR HGB CONC 33 g/dL (32-36); MEAN CORPUSCULAR VOLUME 86 fL (80-99); MEAN PLATELET VOLUME 10.4 fL (9.0-12.2); MONOCYTES # (AUTO) 1.2 10^3/uL (0.0-1.0); MONOCYTES % (AUTO) 16 % (0-12); NEUTROPHILS # (AUTO) 5.5 10^3/uL (1.8-7.8); NEUTROPHILS % (AUTO) 71 % (42-75); PLATELET COUNT 133 10^3/uL (130-400); WHITE BLOOD COUNT 7.6 10^3/uL (4.3-11.0)
[2022-05-22 05:09] LABS: INR 1.7 (0.8-1.4); PROTHROMBIN TIME PATIENT 20.4 SEC (12.2-14.7)
[2022-05-22 05:10] LABS: ALBUMIN 2.9 GM/DL (3.2-4.5); POTASSIUM 3.9 MMOL/L (3.6-5.0)
[2022-05-22 05:12] LABS: CALCIUM 10.1 MG/DL (8.5-10.1)
[2022-05-22 05:13] LABS: TOTAL PROTEIN 5.2 GM/DL (6.4-8.2)
[2022-05-22 05:15] LABS: BILIRUBIN,TOTAL 3.7 MG/DL (0.1-1.0)
[2022-05-22 05:16] LABS: PHOSPHORUS 3.9 MG/DL (2.3-4.7)
[2022-05-22 05:17] LABS: CREATININE SERUM 3.59 MG/DL (0.60-1.30)
[2022-05-22] MEDS: KCL 20 MEQ TAB (K-DUR) PO SCH (05:47)
[2022-05-22] MEDS: inSUlin ASPART (NovoLOG) 1 UNIT/0.01 ML (CHARGE PER UNIT) SC SCH ×4 (05:47→20:43)
[2022-05-22] MEDS: POTASSIUM CL 10MEQ/50ML IVPB 50 ML IV SCH (05:47)
[2022-05-22] MEDS: MAGNESIUM 1 GM/100 ML IVPB 100 ML IV SCH (05:47)
[2022-05-22] MEDS: DOBUTamine DRIP 250 ML IV SCH ×2 (07:22→14:17)
--- NOTE | 2022-05-22 08:49 | Tele-ICU Progress Note ---
Progress Note video rounds completed 71 y/o female admitted [facility] E Coli urosepsis and A fib RVR and LUIS Renal and cardiology following On dobutamine drip Urine output imroving, BUN and creatinine stabilized On apixaban for stroke risk and a fib PE: HR 90 BP: 142/48 by art line Pulse ox 92% WBC normal at 7,600 IMP: a fib rvr improved sepsis improved LUIS stabilized PLAN: cardiology and nephrology are following overall condition has stbalized to improved Focused Exam Sepsis Stage: Sepsis Possible Source: Pulmonary Height, Weight, BMI Height: 5'8.00" Weight: 230lbs. 0.0oz. [id number]; 38.29 BMI Method:Stated Labs Laboratory Tests 05/22/22 04:45 Meds/Labs/Orders Lab results: Laboratory Tests Test 05/21/22 10:42 05/21/22 15:44 05/21/22 21:50 05/22/22 04:45 Range/Units Glucometer 99 108 111 H 70-110 MG/DL White Blood Count 7.6 4.3-11.0 10^3/uL Red Blood Count 3.58 L 3.80-5.11 10^6/uL Hemoglobin 10.2 L 11.5-16.0 g/dL Hematocrit 31 L 35-52 % Mean Corpuscular Volume 86 80-99 fL Mean Corpuscular Hemoglobin 29 25-34 pg Mean Corpuscular Hemoglobin Concent 33 32-36 g/dL Red Cell Distribution Width 17.8 H 10.0-14.5 % Platelet Count 133 130-400 10^3/uL Mean Platelet Volume 10.4 9.0-12.2 fL Immature Granulocyte % (Auto) 1 % Neutrophils (%) (Auto) 71 42-75 % Lymphocytes (%) (Auto) 9 L 12-44 % Monocytes (%) (Auto) 16 H 0-12 % Eosinophils (%) (Auto) 2 0-10 % Basophils (%) (Auto) 0 0-10 % Neutrophils # (Auto) 5.5 1.8-7.8 10^3/uL Lymphocytes # (Auto) 0.7 L 1.0-4.0 10^3/uL Monocytes # (Auto) 1.2 H 0.0-1.0 10^3/uL Eosinophils # (Auto) 0.2 0.0-0.3 10^3/uL Basophils # (Auto) 0.0 0.0-0.1 10^3/uL Immature Granulocyte # (Auto) 0.1 0.0-0.1 10^3/uL Prothrombin Time 20.4 H 12.2-14.7 SEC INR Comment 1.7 H 0.8-1.4 Sodium Level 136 135-145 MMOL/L Potassium Level 3.9 3.6-5.0 MMOL/L Chloride Level 98 98-107 MMOL/L Carbon Dioxide Level 24 21-32 MMOL/L Anion Gap 14 5-14 MMOL/L Blood Urea Nitrogen 48 H 7-18 MG/DL Creatinine 3.59 H 0.60-1.30 MG/DL Estimat Glomerular Filtration Rate 13 BUN/Creatinine Ratio 13 Glucose Level 79 70-105 MG/DL Calcium Level 10.1 8.5-10.1 MG/DL Corrected Calcium 11.0 H 8.5-10.1 MG/DL Phosphorus Level 3.9 2.3-4.7 MG/DL Magnesium Level 2.0 1.6-2.4 MG/DL Total Bilirubin 3.7 #H 0.1-1.0 MG/DL Aspartate Amino Transf (AST/SGOT) 198 H 5-34 U/L Alanine Aminotransferase (ALT/SGPT) 1255 #H 0-55 U/L Alkaline Phosphatase 92 40-136 U/L Total Protein 5.2 L 6.4-8.2 GM/DL Albumin 2.9 L 3.2-4.5 GM/DL KAREEM ROBLEDO MD May 22, 2022 08:49
[2022-05-22] MEDS: APIXABAN 5 MG (ELIQUIS) TABLET PO SCH ×2 (09:00→11:19)
[2022-05-22] MEDS: SENNOSIDES 8.6 MG (SENOKOT) TAB PO SCH ×2 (09:00→20:42)
[2022-05-22] MEDS: DOCUSATE SODIUM 100 MG (COLACE) CAP PO SCH ×2 (09:00→20:42)
[2022-05-22 10:40] LABS: RETICULOCYTE % 2.28 % (0.50-2.40)
[2022-05-22] MEDS: NOREPINEPHRINE 8 MG/250 ML 250 ML IV SCH (10:41)
[2022-05-22] MEDS: NS IV 1000 ML 1,000 ML IV SCH (10:41)
[2022-05-22] MEDS ORDERED: FUROSEMIDE 40 MG/4 ML INJ (LASIX) ONE (10:44)
--- NOTE | 2022-05-22 12:17 | Progress Note ---
Progress Note Assessment/Plan Date Seen by Provider: May 21, 2022 Time Seen by Provider: 09:02 Events since last exam Pt remains awake and alert. notes having episode of emesis with dinner last night that was unexpected. no preceding nausea. denies soa. has edema. tolerating po now. will increase fluid intake Assessment/Plan LUIS - slightly worse today Due to hypoperfusion in setting of afib/rvr, sepsis continue supportive care for n/v avoiding nephrotoxins renally dose meds cr slightly worse but no indication for dialysis encouraged more po intake today discussed she may need to transfer if continues to worsen and pt understands continues to make an adequate amount of urine Afib rvr rate controlled cardiology following Chronic HFrEF due to NICM followed by Dr Woodward in [place] - Echocardiogram of 04-08-[address] Felton showed LVEF 10-15% with severe diffuse hypokinesis. LA and RA dilated. Mod to severe AoR. Mod MR. Mod to severe TR. PASP 50-55 mmHg on dobutamine Hypotension improved UTI receiving abx Thank you for allowing me to participate in the care of this very pleasant patient. Visit was conducted via secure video chat. Pt's questions were answered and she is aware of plan. Vitals Last set of Vitals Signs Vital Signs Date Time Temp Pulse Resp B/P (MAP) Pulse Ox O2 Delivery O2 Flow Rate FiO2 05/22/22 11:00 65 20 144/49 (80) 97 Nasal Cannula 2.00 05/22/22 08:00 36.1 I&O I&O Intake and Output 05/22/22 00:00 Intake Total 1690 ml Output Total 1750 ml Balance -60 ml Intake Oral 1390 ml IV Total 300 ml Output Urine Total 1750 ml Gen: nad, mmm CV: regular rate Lungs: non labored, regular resp rate Ext: 2+ edema neuro: alert Labs Laboratory Tests 05/21/22 15:44: Glucometer 108 05/21/22 21:50: Glucometer 111H 05/22/22 04:45: White Blood Count 7.6, Red Blood Count 3.58L, Hemoglobin 10.2L, Hematocrit 31L, Mean Corpuscular Volume 86, Mean Corpuscular Hemoglobin 29, Mean Corpuscular Hemoglobin Concent 33, Red Cell Distribution Width 17.8H, Platelet Count 133, Mean Platelet Volume 10.4, Immature Granulocyte % (Auto) 1, Neutrophils (%) (Auto) 71, Lymphocytes (%) (Auto) 9L, Monocytes (%) (Auto) 16H, Eosinophils (%) (Auto) 2, Basophils (%) (Auto) 0, Neutrophils # (Auto) 5.5, Lymphocytes # (Auto) 0.7L, Monocytes # (Auto) 1.2H, Eosinophils # (Auto) 0.2, Basophils # (Auto) 0.0, Immature Granulocyte # (Auto) 0.1, Absolute Reticulocyte Count 81, Percent Reticulocyte Count 2.28, Prothrombin Time 20.4H, INR Comment 1.7H, Sodium Level 136, Potassium Level 3.9, Chloride Level 98, Carbon Dioxide Level 24, Anion Gap 14, Blood Urea Nitrogen 48H, Creatinine 3.59H, Estimat Glomerular Filtration Rate 13, BUN/Creatinine Ratio 13, Glucose Level 79, Calcium Level 10.1, Corrected Calcium 11.0H, Phosphorus Level 3.9, Magnesium Level 2.0, Total Bilirubin 3.7#H, Aspartate Amino Transf (AST/SGOT) 198H, Alanine Aminotransferase (ALT/SGPT) 1255#H, Alkaline Phosphatase 92, Total Protein 5.2L, Albumin 2.9L 05/22/22 10:56: Glucometer 85 05/22/22 11:35: Microbiology 05/17/22 Urine Culture - Final, Complete Escherichia coli 05/17/22 Blood Culture - Preliminary, Resulted Staph, Coag Neg ([employer] 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
--- NOTE | 2022-05-22 12:19 | Progress Note ---
Progress Note Assessment/Plan Date Seen by Provider: May 22, 2022 Time Seen by Provider: 13:08 Events since last exam Pt is off the dobutamine gtt as of this am. no soa Assessment/Plan LUIS - cr peaking Due to hypoperfusion in setting of afib/rvr, sepsis continue supportive care for n/v avoiding nephrotoxins renally dose meds cr slightly worse but no indication for dialysis encouraged more po intake continue to monitor at [address] for now discussed she may need to transfer if continues to worsen and pt understands continues to make an adequate amount of urine Afib rvr rate controlled cardiology following Chronic HFrEF due to NICM followed by Dr Woodward in [place] - Echocardiogram of 04-08-[address] Felton showed LVEF 10-15% with severe diffuse hypokinesis. LA and RA dilated. Mod to severe AoR. Mod MR. Mod to severe TR. PASP 50-55 mmHg off dobutamine 05/22/22 Hypotension improved UTI receiving abx Thank you for allowing me to participate in the care of this very pleasant patient. Visit was conducted via secure video chat. Pt's questions were answered and she is aware of plan. Vitals Last set of Vitals Signs Vital Signs Date Time Temp Pulse Resp B/P (MAP) Pulse Ox O2 Delivery O2 Flow Rate FiO2 05/22/22 11:00 65 20 144/49 (80) 97 Nasal Cannula 2.00 05/22/22 08:00 36.1 I&O I&O Intake and Output 05/22/22 00:00 Intake Total 1690 ml Output Total 1750 ml Balance -60 ml Intake Oral 1390 ml IV Total 300 ml Output Urine Total 1750 ml Labs Laboratory Tests 05/21/22 15:44: Glucometer 108 05/21/22 21:50: Glucometer 111H 05/22/22 04:45: White Blood Count 7.6, Red Blood Count 3.58L, Hemoglobin 10.2L, Hematocrit 31L, Mean Corpuscular Volume 86, Mean Corpuscular Hemoglobin 29, Mean Corpuscular Hemoglobin Concent 33, Red Cell Distribution Width 17.8H, Platelet Count 133, Mean Platelet Volume 10.4, Immature Granulocyte % (Auto) 1, Neutrophils (%) (Auto) 71, Lymphocytes (%) (Auto) 9L, Monocytes (%) (Auto) 16H, Eosinophils (%) (Auto) 2, Basophils (%) (Auto) 0, Neutrophils # (Auto) 5.5, Lymphocytes # (Auto) 0.7L, Monocytes # (Auto) 1.2H, Eosinophils # (Auto) 0.2, Basophils # (Auto) 0.0, Immature Granulocyte # (Auto) 0.1, Absolute Reticulocyte Count 81, Percent Reticulocyte Count 2.28, Prothrombin Time 20.4H, INR Comment 1.7H, Sodium Level 136, Potassium Level 3.9, Chloride Level 98, Carbon Dioxide Level 24, Anion Gap 14, Blood Urea Nitrogen 48H, Creatinine 3.59H, Estimat Glomerular Filtration Rate 13, BUN/Creatinine Ratio 13, Glucose Level 79, Calcium Level 10.1, Corrected Calcium 11.0H, Phosphorus Level 3.9, Magnesium Level 2.0, Total Bilirubin 3.7#H, Aspartate Amino Transf (AST/SGOT) 198H, Alanine Aminotransferase (ALT/SGPT) 1255#H, Alkaline Phosphatase 92, Total Protein 5.2L, Albumin 2.9L 05/22/22 10:56: Glucometer 85 05/22/22 11:35: Microbiology 05/17/22 Urine Culture - Final, Complete Escherichia coli 05/17/22 Blood Culture - Preliminary, Resulted Staph, Coag Neg (COUNTER CHECKER) 05/17/22 MRSA Screen - Final, Complete MRSA not isolated JACEY HERNANDEZ MD May 22, 2022 12:19
--- NOTE | 2022-05-22 13:35 | Progress Note - Hospitalist ---
MILAGROS ARAUJO 05/22/22 1335: Subjective HPI/CC On Admission Date Seen by Provider: May 22, 2022 Time Seen by Provider: 08:45 Subjective/Events-last exam Pt is a 71yo female presenting due to Septic shock/Cardiogenic shock and E. Coli UTI. PT accomplished sit to stand, but pt was not able to ambulate. Pt state states that she hasn't had new N/V episodes today. She did have a nose bleed this morning. She did have a small bowel movement last night and continues to pass gas. Pt denies chest pain, SOB, fever, and chills. Pt endorses cough and generalized swelling. Review of Systems General: No Chills; Other (Swelling; Pt has history of LUE lymph edema ) Pulmonary: No Dyspnea; Cough Cardiovascular: Edema; No: Chest Pain, Palpitations Gastrointestinal: No: Nausea, Vomiting, Diarrhea, Constipation Objective Exam Vital Signs Vital Signs Date Time Temp Pulse Resp B/P (MAP) Pulse Ox O2 Delivery O2 Flow Rate FiO2 05/22/22 13:00 89 152/53 (86) 98 Nasal Cannula 2.00 05/22/22 12:00 20 05/22/22 08:00 36.1 Capillary Refill : NONE General Appearance: No Apparent Distress, Chronically ill (Past medical history of Atrial Fibrillation; CHF; LUE Lymph Edema ), Obese, Other Respiratory: Chest Non Tender, Lungs Clear, Normal Breath Sounds Cardiovascular: Normal Peripheral Pulses, Systolic Murmur, Irregularly Irregular Gastrointestinal: Normal Bowel Sounds, Non Tender, Soft Neurologic/Psychiatric: Alert, Oriented x3, Normal Mood/Affect Results/Procedures Lab Laboratory Tests 05/22/22 04:45 Patient resulted labs reviewed. Imaging: Reviewed Imaging Report Assessment/Plan Assessment and Plan Assess & Plan/Chief Complaint Septic Shock Improving status Levophed discontinued last night Cardiogenic Shock Dobutamine on Standby; will continue if needed E. Coli UTI WBC w/in normal limits Continue IV Ceftriaxone LUIS secondary to Acute Tubular Necrosis Normal Urine Production BUN improved and Cr has been stable Nephrology Consulted Atrial Fibrillation w/ RVR Restart Eliquis Acute on Chronic HFrEF Hold IV Fluids Water PO per Nephrology Pt requiring Oxygen currently; Wean off Lasix Injection ordered Ischemic Hepatitis LFTs trending down Continue to monitor Hypercalcemia Primary Hyperparathroidism v. Familial Hypocalciuric Hypercalcemia (FHH) Elevated Corrected Calcium Elevated PTH Ordered 24hr Urine Calcium Anemia Normocytic Anemia; Haptoglobin; Elevated Total Biliurubin and Indirect Bilirubin Ordered Iron Study, Folate and B12 Levels, and Reticulocyte Count Protein Malnutrition Improved Albumin continue to increase Pt continue to have an appetite Gilbert's Disease Chronic elevation of total Bilirubin Continues to decrease Cystic Splenic lesion OSMANY NAILS MD 05/22/22 1753: Subjective HPI/CC On Admission Time Seen by Provider: 10:40 Objective Exam General Appearance: No Apparent Distress, Obese Respiratory: Lungs Clear, Normal Breath Sounds, No Respiratory Distress Cardiovascular: Systolic Murmur, Irregularly Irregular Gastrointestinal: Normal Bowel Sounds, Soft Extremity: Normal Inspection, Pedal Edema Neurologic/Psychiatric: Alert, Normal Mood/Affect Skin: Normal Color, Warm/Dry Assessment/Plan Assessment and Plan Assess & Plan/Chief Complaint Off Dopamine, remains normotensive at this time, Cardiology following. Continue antibiotics for UTI. BUN/Cr stabilizing, urine output remains strong, Nephrology following. 24 hour urine ordered for hypercalcemia evaluation. Critical Care: Critically Ill Patient Diagnosis/Problems Diagnosis/Problems (1) Septic shock Status: Acute (2) Cardiogenic shock Status: Acute (3) E. coli UTI Status: Acute (4) Acute on chronic HFrEF (heart failure with reduced ejection fraction) Status: Acute (5) ATN (acute tubular necrosis) Status: Acute (6) LUIS (acute kidney injury) Status: Acute (7) Shock liver Status: Acute (8) Unconjugated hyperbilirubinemia Status: Acute (9) Gilbert syndrome Status: Chronic (10) Lactic acidosis Status: Resolved Resolution Date/Time: 05/19/22 @ 19:07 (11) NSTEMI (non-ST elevation myocardial infarction) Status: Acute (12) Hypercalcemia Status: Acute (13) Splenic cyst Status: Acute Supervisory-Addendum Brief Verification & Attestation Participated in pt care: history, MDM, physical Personally performed: exam, history, MDM, supervision of care Care discussed with: Medical Student Procedures: n/a Results interpretation: Verified all documentation A medical student performed and documented this service in my presence. I reviewed and verified all information documented by the medical student and made modifications to such information, when appropriate. I personally performed the physical exam and medical decision making. MILAGROS ARAUJO May 22, 2022 13:35 OSMANY NAILS MD May 22, 2022 17:53
--- NOTE | 2022-05-22 14:54 | Progress Note - Cardiology ---
Cardiology SOAP Progress Note Subjective: Gen weakness and malaise No n/v/d No focal weakness No shortness of breath at rest No cp or palp or syncope Mild lower legs Objective: I&O/Vital Signs 05/22/22 05/22/22 05/22/22 05/22/22 03:00 04:00 04:00 05:00 Pulse 92 91 92 Resp 17 18 16 B/P (MAP) 135/48 (77) 131/47 (75) 118/44 (68) Pulse Ox 96 95 95 96 O2 Delivery Nasal Cannula Nasal Cannula Nasal Cannula Nasal Cannula O2 Flow Rate 2.00 2.00 2.00 2.00 05/22/22 05/22/22 05/22/22 05/22/22 06:00 07:00 07:00 07:22 Pulse 87 88 90 87 Resp 20 16 B/P (MAP) 125/44 (71) 130/45 (73) 125/44 Pulse Ox 94 95 O2 Delivery Nasal Cannula Nasal Cannula O2 Flow Rate 2.00 2.00 05/22/22 05/22/22 05/22/22 05/22/22 07:41 08:00 08:00 09:00 Temp 36.1 Pulse 90 87 Resp 23 B/P (MAP) 141/46 (77) 151/50 (83) Pulse Ox 96 96 97 O2 Delivery Nasal Cannula Nasal Cannula Nasal Cannula O2 Flow Rate 2.00 2.00 2.00 05/22/22 05/22/22 05/22/22 05/22/22 10:00 10:41 11:00 12:00 Temp 36.4 Pulse 101 101 65 Resp 22 20 B/P (MAP) 147/59 (88) 147/59 144/49 (80) Pulse Ox 95 97 O2 Delivery Nasal Cannula Nasal Cannula O2 Flow Rate 2.00 2.00 05/22/22 05/22/22 05/22/22 05/22/22 12:00 12:00 12:59 13:00 Pulse 88 88 89 Resp 20 B/P (MAP) 144/54 (84) 152/53 (86) Pulse Ox 98 94 98 O2 Delivery Nasal Cannula Nasal Cannula Nasal Cannula O2 Flow Rate 2.00 2.00 2.00 05/22/22 14:00 Pulse 89 B/P (MAP) 147/60 (89) Pulse Ox 99 O2 Delivery Nasal Cannula O2 Flow Rate 2.00 05/22/22 00:00 Intake Total 1340 ml Output Total 900 ml Balance 440 ml Weight (Pounds): 230 Weight (Ounces): 0.0 Weight (Calculated Kilograms): [id number] Constitutional: AAO x 3, well-developed, well-nourished, other (yellowish appearance) Respiratory: No accessory muscle use; chest expansion is symmetric, chest is bilaterally symmetric, other (fair to good, bilateral air entry that is diminished at the bases) Cardiovascular: regular rate-rhythm, S1 and S2, systolic murmur (soft YASSINE at card base) Gastrointestional: No tender; soft; No guarding, No rebound; audible bowel sounds Extremities: No clubbing, No cyanosis; no lower extremity edema bilateral; No significant edema Neurologic/Psychiatric: other (able to move all limbs) Skin: warm/dry, jaundice; No rash on exposed areas, No ulcerations on exposed areas Results/Procedures: Labs Laboratory Tests 05/21/22 15:44: Glucometer 108 05/21/22 21:50: Glucometer 111H 05/22/22 04:45: White Blood Count 7.6, Red Blood Count 3.58L, Hemoglobin 10.2L, Hematocrit 31L, Mean Corpuscular Volume 86, Mean Corpuscular Hemoglobin 29, Mean Corpuscular Hemoglobin Concent 33, Red Cell Distribution Width 17.8H, Platelet Count 133, Mean Platelet Volume 10.4, Immature Granulocyte % (Auto) 1, Neutrophils (%) (Auto) 71, Lymphocytes (%) (Auto) 9L, Monocytes (%) (Auto) 16H, Eosinophils (%) (Auto) 2, Basophils (%) (Auto) 0, Neutrophils # (Auto) 5.5, Lymphocytes # (Auto) 0.7L, Monocytes # (Auto) 1.2H, Eosinophils # (Auto) 0.2, Basophils # (Auto) 0.0, Immature Granulocyte # (Auto) 0.1, Absolute Reticulocyte Count 81, Percent Reticulocyte Count 2.28, Prothrombin Time 20.4H, INR Comment 1.7H, Sodium Level 136, Potassium Level 3.9, Chloride Level 98, Carbon Dioxide Level 24, Anion Gap 14, Blood Urea Nitrogen 48H, Creatinine 3.59H, Estimat Glomerular Filtration Rate 13, BUN/Creatinine Ratio 13, Glucose Level 79, Calcium Level 10.1, Corrected Calcium 11.0H, Phosphorus Level 3.9, Magnesium Level 2.0, Total Bilirubin 3.7#H, Aspartate Amino Transf (AST/SGOT) 198H, Alanine Aminotransferase (ALT/SGPT) 1255#H, Alkaline Phosphatase 92, Total Protein 5.2L, Albumin 2.9L 05/22/22 10:56: Glucometer 85 05/22/22 11:35: Microbiology 05/17/22 Urine Culture - Final, Complete Escherichia coli 05/17/22 Blood Culture - Preliminary, Resulted Staph, Coag Neg (PEN RIDER) 05/17/22 MRSA Screen - Final, Complete MRSA not isolated A/P: Assessment: Shock: septic and/or cardiogenic - mild troponin elevation due to type 2 [place] due to hypotension - requiring pressor support Hepatitis and marked jaundice of undetermined etiology - managed by Hosp and ICU svces Coagulopathy - due to hepatic failure and due to apixaban PAF - OAC with Eliquis 5mg BID - did not take on 05/15 and 05/16/22 due to n/v, resumed today - has been non-compliant with Amiodarone tx on 05/15 and 05/16/22 d/t n/v - stopped due to hepatic failure during this hospitalization Chronic HFrEF due to NICM (primarily managed by her coremaking supervisor Dr Woodward in [place], [place]) - Echocardiogram of 04-08-[address] Felton showed LVEF 10-15% with severe diffuse hypokinesis. LA and RA dilated. Mod to severe AoR. Mod MR. Mod to severe TR. PASP 50-55 mmHg - She reports she had a sleep study done that was "inconclusive" - she does not use CPAP or supplemental oxygen - managed by Dr. Kirk - AICD - implanted in September 2021 at [facility] (single chamber device) - followed by Dr. Woodward - Echo on 05-17-22: LVEF 20-25%, global hypokinesis of LV, mild to mod MR, PASP 35-40 mmHg Acute renal failure, worsening - ATN due to hypotension vs hepatorenal syndrome - Cr further worse this morning HLD - statin tx H/o DVT R leg - OAC with Eliquis H/O Breast Cancer - has had a mastectomy Plan: * Off pressors if maintaining pressure * D/c dig due to renal failure and level 1.46 * Not suitable for bb or NIRALI-inhib/ARB due to low bp and ac renal failure * Monitor labs closely * Treat coagulopathy. Hold apixaban for now * Repeat dig level in am * Consider transfer to tertiary care facility d/t multi-system involvement CHAU POPE MD FACP FACC CCDS May 22, 2022 14:54
[2022-05-22] MEDS: cefTRIAXone 2,000 MG in NS (IVPB) 50 ML IV SCH (19:34)
[2022-05-23] MEDS: NOREPINEPHRINE 8 MG/250 ML 250 ML IV SCH ×2 (01:44→13:07)
[2022-05-23] MEDS: DOBUTamine DRIP 250 ML IV SCH ×3 (01:44→13:07)
[2022-05-23] MEDS: NS IV 1000 ML 1,000 ML IV SCH ×2 (02:29→19:30)
[2022-05-23 03:29] LABS: BASOPHILS % (AUTO) 0 % (0-10); EOSINOPHILS # (AUTO) 0.3 10^3/uL (0.0-0.3); EOSINOPHILS % (AUTO) 4 % (0-10); HEMATOCRIT 34 % (35-52); LYMPHOCYTES # (AUTO) 0.8 10^3/uL (1.0-4.0); LYMPHOCYTES % (AUTO) 10 % (12-44); MEAN CORPUSCULAR HEMOGLOBIN 28 pg (25-34); MEAN CORPUSCULAR HGB CONC 32 g/dL (32-36); MEAN CORPUSCULAR VOLUME 86 fL (80-99); MEAN PLATELET VOLUME 10.2 fL (9.0-12.2); MONOCYTES # (AUTO) 1.2 10^3/uL (0.0-1.0); MONOCYTES % (AUTO) 15 % (0-12); NEUTROPHILS # (AUTO) 5.6 10^3/uL (1.8-7.8); NEUTROPHILS % (AUTO) 69 % (42-75); PLATELET COUNT 153 10^3/uL (130-400)
[2022-05-23 03:38] LABS: POTASSIUM 3.8 MMOL/L (3.6-5.0)
[2022-05-23 03:40] LABS: CALCIUM 10.3 MG/DL (8.5-10.1)
[2022-05-23 03:41] LABS: TOTAL PROTEIN 5.6 GM/DL (6.4-8.2)
[2022-05-23 03:43] LABS: BILIRUBIN,TOTAL 2.9 MG/DL (0.1-1.0)
[2022-05-23 03:44] LABS: CREATININE SERUM 3.52 MG/DL (0.60-1.30)
[2022-05-23] MEDS: POTASSIUM CL 10MEQ/50ML IVPB 50 ML IV SCH (03:46)
[2022-05-23] MEDS: KCL 20 MEQ TAB (K-DUR) PO SCH (03:47)
[2022-05-23] MEDS: MAGNESIUM 1 GM/100 ML IVPB 100 ML IV SCH (03:52)
[2022-05-23] MEDS: inSUlin ASPART (NovoLOG) 1 UNIT/0.01 ML (CHARGE PER UNIT) SC SCH (03:52)
--- NOTE | 2022-05-23 08:34 | Progress Note - Cardiology ---
Cardiology SOAP Progress Note Subjective: Sitting up in bed Denies any c/o CP No c/o palpitations No c/o abd discomfort SOB has improved Objective: I&O/Vital Signs 05/23/22 05/23/22 05/24/22 05/24/22 20:40 23:40 01:00 04:04 Temp 36.1 36.5 Pulse 84 91 81 Resp 18 18 B/P (MAP) 134/68 (90) 178/92 (120) Pulse Ox 99 99 97 O2 Delivery Room Air Room Air Room Air 05/24/22 00:00 Intake Total 830 ml Output Total 600 ml Balance 230 ml Weight (Pounds): 230 Weight (Ounces): 0.0 Weight (Calculated Kilograms): [phone] Constitutional: AAO x 3, well-developed, well-nourished, other (yellowish appearance) Respiratory: No accessory muscle use; chest expansion is symmetric, chest is bilaterally symmetric, other (fair to good, bilateral air entry that is diminished at the bases) Cardiovascular: regular rate-rhythm, S1 and S2, systolic murmur (soft YASSINE at card base) Gastrointestional: No tender; soft, round; No guarding, No rebound; audible bowel sounds Extremities: No clubbing, No cyanosis; no lower extremity edema bilateral; No significant edema Neurologic/Psychiatric: other (able to move all limbs) Skin: warm/dry, jaundice; No rash on exposed areas, No ulcerations on exposed areas Results/Procedures: Labs Laboratory Tests 05/23/22 12:15: Urine Collection Type 24, Timed Urine Volume 2 1700, Urine Total Volume (Calcium) 1700, Urine Calcium mg/Day 51, Urine Calcium mg/dL 3.0, Urine Creatine Timed 0.7L, Ur Creatinine (Citric Acid) mg/dL 43 05/24/22 04:18: White Blood Count 7.7, Red Blood Count 3.66L, Hemoglobin 10.3L, Hematocrit 32L, Mean Corpuscular Volume 87, Mean Corpuscular Hemoglobin 28, Mean Corpuscular Hemoglobin Concent 32, Red Cell Distribution Width 17.8H, Platelet Count 143, Mean Platelet Volume 10.2, Immature Granulocyte % (Auto) 1, Neutrophils (%) (Auto) 68, Lymphocytes (%) (Auto) 11L, Monocytes (%) (Auto) 16H, Eosinophils (%) (Auto) 5, Basophils (%) (Auto) 0, Neutrophils # (Auto) 5.2, Lymphocytes # (Auto) 0.8L, Monocytes # (Auto) 1.2H, Eosinophils # (Auto) 0.4H, Basophils # (Auto) 0.0, Immature Granulocyte # (Auto) 0.1, Sodium Level 138, Potassium Level 3.6, Chloride Level 102, Carbon Dioxide Level 24, Anion Gap 12, Blood Urea Nitrogen 45H, Creatinine 3.03#H, Estimat Glomerular Filtration Rate 16, BUN/Creatinine Ratio 15, Glucose Level 83, Calcium Level 10.2H, Corrected Calcium 11.1H, Phosphorus Level 3.6, Magnesium Level 1.9, Total Bilirubin 2.7H, Aspartate Amino Transf (AST/SGOT) 64H, Alanine Aminotransferase (ALT/SGPT) 671#H, Alkaline Phosphatase 97, Total Protein 5.4L, Albumin 2.9L Microbiology 05/17/22 Urine Culture - Final, Complete Escherichia coli 05/17/22 Blood Culture - Final, Complete Staph, Coag Neg ([employer]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) 05/17/22 MRSA Screen - Final, Complete MRSA not isolated A/P: Assessment: Shock: septic and/or cardiogenic - mild troponin elevation due to type 2 [place] due to hypotension - requiring pressor support - pressor support off Hepatitis and marked jaundice of undetermined etiology - managed by Hosp and ICU svces Coagulopathy - due to hepatic failure and due to apixaban PAF - OAC with Eliquis 5mg BID - did not take on 05/15 and 05/16/22 due to n/v, resum ed today - has been non-compliant with Amiodarone tx on 05/15 and 05/16/22 d/t n/v - stopped due to hepatic failure during this hospitalization Chronic HFrEF due to NICM (primarily managed by her cook roast Dr Woodward in [place], [place]) - Echocardiogram of 04-08-[address] Felton showed LVEF 10-15% with severe diffuse hypokinesis. LA and RA dilated. Mod to severe AoR. Mod MR. Mod to severe TR. PASP 50-55 mmHg - She reports she had a sleep study done that was "inconclusive" - she does not use CPAP or supplemental oxygen - managed by Dr. Kirk - AICD - implanted in September 2021 at [facility] (single chamber device) - followed by Dr. Woodward - Echo on 05-17-22: LVEF 20-25%, global hypokinesis of LV, mild to mod MR, PASP 35-40 mmHg Acute renal failure, worsening - ATN due to hypotension vs hepatorenal syndrome - Cr essentially unchanged (3.52 today) HLD - statin tx H/o DVT R leg - OAC with Eliquis H/O Breast Cancer - has had a mastectomy Plan: * Off pressors if maintaining pressure * HR controlled * Not suitable for bb or NIRALI-inhib/ARB due to low bp and ac renal failure * Monitor labs closely * INR 1.7 today - Eliquis has already been resumed * Dig level 1.07 this morning (has been off digoxin) * Consider transfer to tertiary care facility d/t multi-system involvement JOSIE WINKLER May 23, 2022 08:34
[2022-05-23] MEDS: APIXABAN 5 MG (ELIQUIS) TABLET PO SCH ×2 (08:54→19:43)
[2022-05-23] MEDS: DOCUSATE SODIUM 100 MG (COLACE) CAP PO SCH ×2 (09:47→21:00)
[2022-05-23] MEDS: SENNOSIDES 8.6 MG (SENOKOT) TAB PO SCH ×2 (09:47→21:00)
--- NOTE | 2022-05-23 09:54 | Progress Note - Hospitalist ---
CARISSA KILPATRICK 05/23/22 0954: Subjective HPI/CC On Admission Date Seen by Provider: May 23, 2022 Time Seen by Provider: 09:25 Subjective/Events-last exam Patient was awake sitting up in bed when seen this morning. She had eaten breakfast and reports tolerating food and fluid intake well. She has a gomes catheter in place with clear yellow urine present in the bag. She has continued to have normal urine output despite mostly unchanged Cr from yesterday. She reports intermittent headaches, mild SOB, and chronic dizziness. She denies CP, palpitations, cough, abd pain, N/V, dysuria, hematuria, or pain/numbness in extremities. She does not have any specific questions or concerns at this time. Review of Systems General: No Chills HEENT: Head Aches (intermittent); No Visual Changes Pulmonary: Dyspnea; No Cough, No Pleuritic Chest Pain Cardiovascular: No: Chest Pain, Palpitations Gastrointestinal: No: Nausea, Vomiting, Abdominal Pain Genitourinary: No Dysuria Neurological: Weakness (generalized); No: Numbness Objective Exam Vital Signs Vital Signs Date Time Temp Pulse Resp B/P (MAP) Pulse Ox O2 Delivery O2 Flow Rate FiO2 05/23/22 10:00 89 10 96 Nasal Cannula 2.00 05/23/22 08:00 36.8 Capillary Refill : NONE General Appearance: No Apparent Distress, Obese HEENT: PERRL/EOMI, Pharynx Normal, Moist Mucous Membranes Neck: Non Tender, Supple Respiratory: Chest Non Tender, Lungs Clear, Normal Breath Sounds, No Accessory Muscle Use, No Respiratory Distress Cardiovascular: Regular Rate, Rhythm, Systolic Murmur Gastrointestinal: Normal Bowel Sounds, Non Tender, Soft Extremity: Normal Capillary Refill, No Calf Tenderness, Pedal Edema (mild pitting edema of legs bilaterally), Swelling (significant lymphedema of left arm ) Neurologic/Psychiatric: Alert, Oriented x3 Skin: Normal Color, Warm/Dry Lymphatic: No Adenopathy Results/Procedures Lab Laboratory Tests 05/23/22 03:25 Patient resulted labs reviewed. Imaging: Reviewed Imaging Report Assessment/Plan Assessment and Plan Assess & Plan/Chief Complaint Paroxysmal Atrial Fibrillation -Eliquis 5mg PO BID. Amiodarone was trialed and not tolerated earlier in course. -Patient was in regular sinus rhythm when seen today. -Management per cardiology recommendations Shock (septic vs. cardiogenic) -Resolved. Vitals stable and pt. continues to be normotensive at this time w/out norepinephrine and dobutamine Chronic HFrEF -04/08/2020 EF 10-15% -05/17/2019 EF 20-25% -Lasix 40mg IV given yesterday for swelling. Management per cardiology LUIS 2nd to acute tubular necrosis - Pt. continues to have normal urine production. - BUN and Cr unchanged since yesterday. - Continue to encourage oral intake and renally dose meds. Management per nephrology. Ischemic hepatitis - 05/23/22 AST of 113 and ALT of 969. Improving at this time. - Continue to encourage fluid intake and monitor at this time UTI due to E. choli - Day 5 Ceftriaxone 2g IV Q24hr - Pt. has gomes catheter in place at this time. Consider removal as PT/OT work with her and pt. is able to transfer. Normocytic Anemia -Hgb on 05/23/22 of 11.0 - 05/22/22 iron study showed elevated ferritin - Probable anemia of chronic disease vs. acute phase reaction. Monitor for now and follow up with pcp upon discharge for repeat studies. Hypercalcemia - 05/23/22 corrected calcium 11.1. Has elevated PTH. 24 hr urine sample ordered yesterday. - Primary hyperparathyroidism vs. Familial hypocalciuric hypercalcemia - hypercalcemia is mild and will monitor at this time. Gibert Syndrome vs. hyperbilirubinemia -Lvls continue to improve at this time. Cystic Splenic Lesion -Identified on 05/18/22 CT. Radiology recommended 3 month follow-up MRI w/ and w/out MRI to confirm stability. Other -PT/OT for rehabilitation -Condition continues to improve. Will transfer to floor. -Monitor labs closely ANAND CÁRDENAS MD 05/23/22 1255: Assessment/Plan Assessment and Plan Assess & Plan/Chief Complaint Pt dong much better today. Off pressors for over 24 hours. On room air when I visited with her. Will transfer down to fourth floor med /surg status. Will keep on telemetry. Will add PT/OT for critical illness myopathy. She has already worked with OT and brushed her teeth. Consider IRF. Still awaiting 24 hour urine studies. Supervisory-Addendum Brief Verification & Attestation Participated in pt care: history, MDM, physical Personally performed: exam, history, MDM, supervision of care Care discussed with: Medical Student Procedures: n/a Results interpretation: Verified all documentation Verification and Attestation of Medical Student E/M Service A medical student performed and documented this service in my presence. I reviewed and verified all information documented by the medical student and made modifications to such information, when appropriate. I personally performed the physical exam and medical decision making. Anand Cárdenas, May 23, 2022,12:45 CARISSA KILPATRICK May 23, 2022 09:54 ANAND CÁRDENAS MD May 23, 2022 12:55
--- NOTE | 2022-05-23 10:26 | Occupational Ther Daily Note ---
OT Current Status-Daily Note Subjective Pt alert, lying in bed. Pt declines any OOB tasks, stating that she has been up in chair already earlier this morning and her back hurt. Does not rate pain. Pt is pleasant during session. Mental Status/Objective Patient Orientation: Person, Place, Time, Situation Attachments: IV, Telemetry ADL-Treatment After supplies gathered, pt completes oral care and facial hygiene by self. Pt does take increased time to complete fine motor tasks due to increased edema in B hands. Pt educated on AROM exercises to decrease hand edema and increase strength. After therapy, pt lying in bed with call light/phone in reach. All needs met in room. Therapy Code Descriptions/Definitions Functional [place] Measure: 0=Not Assessed/NA 4=Minimal Assistance 1=Total Assistance 5=Supervision or Setup 2=Maximal Assistance 6=Modified [place] 3=Moderate Assistance 7=Complete IndependenceSCALE: Activities may be completed with or without assistive devices. 7-Rkvpzvmnlf-tixqrrn completes the activity by him/herself with no assistance from a helper. 5-Set-up or Clean-up Assistance-helper sets up or cleans up; patient completes activity. [place] assists only prior to or following the activity. 4-Supervision or Touching Assistance-helper provides verbal cues and/or touching/steadying and/or contact guard assistance as patient completes activity. Assistance may be provided throughout the activity or intermittently. 3-Partial/Moderate Assistance-helper does LESS THAN HALF the effort. [place] lifts, holds or supports trunk or limbs, but provides less than half the effort. 2-Substantial/Maximal Assistance-helper does MORE THAN HALF the effort. [place] lifts or holds trunk or limbs and provides more than half the effort. 8-Tncsmjwrz-vgegtr does ALL the effort. Patient does none of the effort to complete the activity. Or, the assistance of 2 or more helpers is required for the patient to complete the activity. If activity was not attempted, code reason: 7-Patient Refused. 9-Not Applicable-not attempted and the patient did not perform the activity before the current illness, exacerbation or injury. 10-Not Attempted due to Environmental Limitations-(lack of equipment, weather restraints, etc.). 88-Not Attempted due to Medical Conditions or Safety Concerns. 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 2=Patient will verbalize/demonstrate understanding of assistive devices/modifications for ADL. 3=Patient will improve strength/tolerance for activity to enable patient to perform ADL's. OT Education/Plan Problem List/Assessment Assessment: Decreased Activ Tolerance, Impaired Self-Care Skills Discharge Recommendations Plan/Recommendations: Continue POC Treatment Plan/Plan of Care Patient would benefit from OT for education, treatment and training to promote independence in ADL's, mobility, safety and/or upper extremity function for ADL's. Plan of Care: ADL Retraining, Functional Mobility, UE Funct Exercise/Act Treatment Duration: Jun 04, 2022 Frequency: 3 times per week (3-5x/week) Estimated Hrs Per Day: .25 hour per day Agreement: Yes Rehab Potential: Guarded Time Start Time: 10:15 Stop Time: 10:27 DATE: May 23, 2022 Total Time Billed (hr/min): 12 Billed Treatment Time 1 visit-ADL 1 (12 min) DEVORAH ELKINS May 23, 2022 10:26
--- NOTE | 2022-05-23 10:38 | Tele-ICU Progress Note ---
Subjective Date Seen by a Provider: May 23, 2022 Time Seen by a Provider: 10:38 Subjective/Events-last exam (Tele-ICU Physician , Progress Note ) Service provided via interactive audio and video telecommunications E-CARE system to a patient admitted to ICU bed in [facility]. Patient is seen today due to persistent need of ICU care Available chart/ vitals / labs / Images reviewed Video assessment done using teleICU camera, rest of exam as per RN Discussed with RN Events overnight : Afebrile hemodynamically stable Respiratory - 2l I/O = hen 400 Drips: Pressors- no levo stopped 05/19 am , still on dobutamine Consultants: patrice alfaro Hospital course: (05/17) 71y/o F admitted with AFib/RVR, CHF. Vomiting. Positive UTI/LUIS. ECHO: EF 20-25%. 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 - was hold now with coagulopathy- RESUMED UTI - Ecoli cx 05/17 - pansensitive - Zosyn 05/17 - changed to ceftriaxone 05/19 HFrEF (04/08/20 echo with LVEF 10-15%, severe diffuse hypokinesis - Echo on 05-17-22: LVEF 20-25%, global hypokinesis of LV, mild to mod MR, PASP 35-40 mmHg - OFFdobs -as per cards ELEV liver enzymes - in part is due to ischemic hepatitis ( + Zosyn ) - IMPROVING - arrived with abnormal LFT - viral panel negative Coagulapathy ( with liver failure and on NOAC) - INR >10 05/19 - received 2.5 mg VIT K -IMPROVED , inr 1.7 om 05/22 LUIS - due to all above - -Cr stable at 3.5 for 3 days , making urine ( 05/19 - bicarb stopped - 05/20 - nephrology tele -consult done . on 05/20 --fluid stopped Shock- cardiogenic -RESOLVED - OFF levo and dobs - cortisol 57 on 05/17 vomiting and feeling generally weak ( elevated bilirubin, s/p cholecystectomy - US liver and CT abd/ pelvis reviewed - IMPROVED S/P LUMPECTOMY ON LEFT SIDE, RT SIDE MASTECTOMY -s/pCHEMO AND RADIATION--DX IN 1980 H/o DVT R leg- OAC with Eliquis ?SELINA- -she reports she had a sleep study done that was "inconclusive" - she does not use CPAP or supplemental oxygen Lines : R IG 05/17 , r a line , (Central Line Necessity Reviewed) Haddad: + OG: Nutrition: po Analgesia: Anxiety/ delirium VTE Prophylaxis: eliquis ON HOLD 05/19 -> Stress Ulcer Prophylaxis: ppi Plans in collaboration with bedside consultants and IM MDs. Discussed with RN to reach out if any questions or concerns A total of 15 minutes of critical care time was devoted to this patient today, required to treat and/or prevent further deterioration of critical care condition ( as above ) . I am remotely monitoring this patient from another state. I am unable to do the bedside exam, and history/physical and pertinent information is taken from other notes in the computer and bedside staff. . Sepsis Event Evaluation Height, Weight, BMI Height: 5'8.00" Weight: 230lbs. 0.0oz. [id number]; 38.29 BMI Method:Stated Exam Exam Patient acknowledged, consented, and participated in this virtual visit which was conducted using real time audio/video Vital Signs Date Time Temp Pulse Resp B/P (MAP) Pulse Ox O2 Delivery O2 Flow Rate FiO2 05/23/22 09:00 89 98 Nasal Cannula 2.00 05/23/22 08:00 86 17 98 Nasal Cannula 2.00 05/23/22 07:35 85 05/23/22 07:00 82 23 97 Nasal Cannula 2.00 05/23/22 06:00 82 20 160/54 (89) 99 Nasal Cannula 2.00 05/23/22 05:00 80 20 164/56 (92) 96 Nasal Cannula 2.00 05/23/22 04:00 98 Room Air 05/23/22 04:00 67 156/56 (89) 96 Nasal Cannula 2.00 05/23/22 03:00 70 161/57 (91) 88 Nasal Cannula 2.00 05/23/22 02:00 75 145/53 (83) 96 Nasal Cannula 2.00 05/23/22 01:00 72 05/23/22 01:00 72 19 122/46 (71) 99 Nasal Cannula 2.00 05/23/22 00:00 112 17 135/58 (83) 99 Nasal Cannula 2.00 05/22/22 23:59 98 Room Air 05/22/22 23:00 112 18 130/59 (82) 97 Nasal Cannula 2.00 05/22/22 22:00 110 20 149/55 (86) 97 Nasal Cannula 2.00 05/22/22 21:00 111 17 144/55 (84) 98 Nasal Cannula 2.00 05/22/22 20:00 98 Room Air 05/22/22 20:00 103 22 146/54 (84) 97 Nasal Cannula 2.00 05/22/22 19:00 112 05/22/22 19:00 111 159/70 (99) 96 Nasal Cannula 2.00 05/22/22 18:00 83 21 160/57 (91) 96 Nasal Cannula 2.00 05/22/22 17:00 112 29 150/67 (94) 99 Nasal Cannula 2.00 05/22/22 16:00 97 Nasal Cannula 2.00 05/22/22 16:00 91 38 141/57 (85) 98 Nasal Cannula 2.00 05/22/22 15:00 97 15 154/55 (88) 98 Nasal Cannula 2.00 05/22/22 14:00 89 147/60 (89) 99 Nasal Cannula 2.00 05/22/22 13:00 89 152/53 (86) 98 Nasal Cannula 2.00 05/22/22 12:59 88 05/22/22 12:00 88 20 144/54 (84) 94 Nasal Cannula 2.00 05/22/22 12:00 98 Nasal Cannula 2.00 05/22/22 12:00 36.4 05/22/22 11:00 65 20 144/49 (80) 97 Nasal Cannula 2.00 05/22/22 10:41 101 147/59 I & O 05/23/22 07:00 Intake Total 1250 ml Output Total 1650 ml Balance -400 ml Height & Weight Height: 5'8.00" Weight: 230lbs. 0.0oz. 104.278832az; 38.29 BMI Method:Stated General Appearance: No Apparent Distress, Obese HEENT: PERRL/EOMI, Pharynx Normal, Moist Mucous Membranes Neck: Non Tender, Supple Respiratory: Chest Non Tender, Lungs Clear, Normal Breath Sounds, No Accessory Muscle Use, No Respiratory Distress Cardiovascular: Regular Rate, Rhythm, Systolic Murmur Peripheral Pulses: 2+ Dorsalis Pedis (R), 2+ Left Dors-Pedis (L), 2+ Radial Pulses (R), 2+ Radial Pulses (L) Gastrointestinal: non tender, soft; No distended Extremity: Normal Capillary Refill, No Calf Tenderness, Pedal Edema (mild pitting edema of legs bilaterally), Swelling (significant lymphedema of left arm ) Neurologic/Psychiatric: Alert, Oriented x3 Skin: Normal Color, Warm/Dry Lymphatic: No Adenopathy Results Lab Laboratory Tests 05/22/22 04:45 05/23/22 03:25 Assessment/Plan Assessment/Plan 1 RANDI MCCLOUD MD May 23, 2022 10:38
--- NOTE | 2022-05-23 13:02 | Progress Note ---
Progress Note Assessment/Plan Date Seen by Provider: May 23, 2022 Time Seen by Provider: 12:59 Events since last exam Pt awake/alert. sitting up in her recliner satting 98 on room air. gomes place and does not want it out due to knee pain. pt denies soa. has edema in hands/legs. will apply ble compression. d/w her RN. Assessment/Plan LUIS - cr stable today Due to hypoperfusion in setting of afib/rvr, sepsis continue supportive care for n/v avoiding nephrotoxins renally dose meds encouraged more po intake continue to monitor at [address] for now discussed she may need to transfer if continues to worsen and pt understands continues to make an adequate amount of urine Hypercalcemia not clear why not on tums or vitamin d avoid use of tums, rolaids, vit d high ca can occur with use of thiazide diuretics which she is not on check PTH which should be suppressed high ca can also be secondary to immobilization in pt who has been in bed more Afib rvr rate controlled cardiology following Chronic HFrEF due to NICM followed by Dr Woodward in [place] - Echocardiogram of 04-08-[address] Felton showed LVEF 10-15% with severe diffuse hypokinesis. LA and RA dilated. Mod to severe AoR. Mod MR. Mod to severe TR. PASP 50-55 mmHg off dobutamine 05/22/22 Hypotension improved UTI receiving abx Thank you for allowing me to participate in the care of this very pleasant patient. Visit was conducted via secure video chat. Pt's questions were answered and she is aware of plan. Vitals Last set of Vitals Signs Vital Signs Date Time Temp Pulse Resp B/P (MAP) Pulse Ox O2 Delivery O2 Flow Rate FiO2 05/23/22 10:00 89 10 96 Nasal Cannula 2.00 05/23/22 08:00 36.8 I&O I&O Intake and Output 05/23/22 00:00 Intake Total 1150 ml Output Total 1725 ml Balance -575 ml Intake Oral 1150 ml Output Urine Total 1725 ml # Bowel Movements 1 Labs Laboratory Tests 05/22/22 16:22: Glucometer 81 05/23/22 03:25: White Blood Count 8.0, Red Blood Count 3.93, Hemoglobin 11.0L, Hematocrit 34L, Mean Corpuscular Volume 86, Mean Corpuscular Hemoglobin 28, Mean Corpuscular Hemoglobin Concent 32, Red Cell Distribution Width 17.8H, Platelet Count 153, Mean Platelet Volume 10.2, Immature Granulocyte % (Auto) 1, Neutrophils (%) (Auto) 69, Lymphocytes (%) (Auto) 10L, Monocytes (%) (Auto) 15H, Eosinophils (%) (Auto) 4, Basophils (%) (Auto) 0, Neutrophils # (Auto) 5.6, Lymphocytes # (Auto) 0.8L, Monocytes # (Auto) 1.2H, Eosinophils # (Auto) 0.3, Basophils # (Auto) 0.0, Immature Granulocyte # (Auto) 0.1, Sodium Level 136, Potassium Level 3.8, Chloride Level 101, Carbon Dioxide Level 21, Anion Gap 14, Blood Urea Nitrogen 47H, Creatinine 3.52H, Estimat Glomerular Filtration Rate 13, BUN/Creatinine Ratio 13, Glucose Level 88, Calcium Level 10.3H, Corrected Calcium 11.1H, Phosphorus Level 4.0, Magnesium Level 2.0, Total Bilirubin 2.9H, Aspartate Amino Transf (AST/SGOT) 113H, Alanine Aminotransferase (ALT/SGPT) 969#H, Alkaline Phosphatase 96, Total Protein 5.6L, Albumin 3.0L, Digoxin Level 1.06 Microbiology 05/17/22 Urine Culture - Final, Complete Escherichia coli 05/17/22 Blood Culture - Preliminary, Resulted Staph, Coag Neg (BOXING INSTRUCTOR) 05/17/22 MRSA Screen - Final, Complete MRSA not isolated Focused Exam Respiratory: Lungs Clear, No Respiratory Distress Cardiovascular: Regular Rate, Rhythm, No JVD Skin: No cyanosis JACEY HERNANDEZ MD May 23, 2022 13:02
--- NOTE | 2022-05-23 14:46 | Physical Therapy Daily Note ---
PT Daily Note-Current Subjective Pt found lying in bed upon entry. Agreed to PT. States that she is not having any pain today. Pt reports she has not been up since 2am this morning. Pt left /c nurse present in recliner post-Tx. Pain Section J - Health Conditions 1. Rarely or not at all 2. Occasionally 3. Frequently 4. Almost constantly 8. Unable to answer Pain Effect on Sleep: 0 Pain Interference with Therapy: 0 Pain Interference w/Day-to-Day: 0 Mental Status Patient Orientation: Normal For Age Attachments: Oxygen, Haddad Catheter, IV Transfers SCALE: Activities may be completed with or without assistive devices. 0-Rdwcnirvha-jnysppn completes the activity by him/herself with no assistance from a helper. 5-Set-up or Clean-up Assistance-helper sets up or cleans up; patient completes activity. [place] assists only prior to or following the activity. 4-Supervision or Touching Assistance-helper provides verbal cues and/or touch ing/steadying and/or contact guard assistance as patient completes activity. Assistance may be provided throughout the activity or intermittently. 3-Partial/Moderate Assistance-helper does LESS THAN HALF the effort. [place] lifts, holds or supports trunk or limbs, but provides less than half the effort. 2-Substantial/Maximal Assistance-helper does MORE THAN HALF the effort. [place] lifts or holds trunk or limbs and provides more than half the effort. 6-Oubmjhljo-hsuqmg does ALL the effort. Patient does none of the effort to complete the activity. Or, the assistance of 2 or more helpers is required for the patient to complete the activity. If activity was not attempted, code reason: 7-Patient Refused. 9-Not Applicable-not attempted and the patient did not perform the activity before the current illness, exacerbation or injury. 10-Not Attempted due to Environmental Limitations-(lack of equipment, weather restraints, etc.). 88-Not Attempted due to Medical Conditions or Safety Concerns. Sit to Stand (QC): 4 Chair/Yjf-rg-Pxjwv Xfer(QC): 4 Pt CGA /c sit<->stand and bed<->chair trfs. Gait Training Does the Patient Walk?: No and Walking Goal IS indicated Gait Assistive Device: FWW Assessment Current Status: Fair Progress Pt able to stand for over 1min 2x this visit. Begins to fatigue while standing and required seated RBs. Pt had BM on bed and was trf from bed->chair /c nurse assist for cleanup. Continue to progress pt as tolerated to improve endurance, strength, and functional ability. PT Short Term Goals Short Term Goals Time Frame: May 28, 2022 Roll Left & Right: 5 Sit to lyin Lying to sitting on side of be: 5 Sit to stand: 5 Chair/cwn-ex-vfwmh transfer: 5 Toilet transfer: 5 Car transfer: 5 Walk 10 feet: 5 PT Long-Term Goals Long-Term Goals PT Line Rider Goals Time Frame: Jun 04, 2022 Roll Left & Right (QC): 6 Sit to Lying (QC): 6 Lying-Sitting on Side/Bed(QC): 6 Sit to Stand (QC): 6 Chair/Nhe-kn-Eshjp Xfer(QC): 6 Toilet Transfer (QC): 6 Car Transfer (QC): 6 Does the Patient Walk: No and Walking Goal IS indicated Walk 10 feet (QC): 6 Walk 50ft with 2 Turns (QC): 6 Walk 150 ft (QC): 6 1 Step (curb) (QC): 6 4 Steps (QC): 6 PT Plan Treatment/Plan Treatment Plan: Continue Plan of Care Treatment Plan: Bed Mobility, Education, Functional Activity Jamir, Functional Strength, Gait, Safety, Therapeutic Exercise, Transfers Treatment Duration: Jun 04, 2022 Frequency: 6 times per week Time Time In: 1109 Time Out: 1137 DATE: May 23, 2022 Total Billed Treatment Time: 28 Total Billed Treatment 1 visit FRANKIE Guerrero MOTION STUDY TECHNICIAN May 23, 2022 14:46
[2022-05-23 16:00] VITALS: BP 187/84
--- NOTE | 2022-05-23 17:06 | Progress Note - Cardiology ---
Cardiology SOAP Progress Note Subjective: Shortness of breath is better No cp or palp or syncope No n/v/d Gen weakness and malaise present No focal weakness Objective: I&O/Vital Signs 05/23/22 05/23/22 05/23/22 05/23/22 06:00 07:00 07:35 08:00 Pulse 82 82 85 86 Resp 20 23 17 B/P (MAP) 160/54 (89) Pulse Ox 99 97 98 O2 Delivery Nasal Cannula Nasal Cannula Nasal Cannula O2 Flow Rate 2.00 2.00 2.00 05/23/22 05/23/22 05/23/22 05/23/22 08:00 08:00 09:00 10:00 Temp 36.8 Pulse 89 89 Resp 10 B/P (MAP) Pulse Ox 99 98 96 O2 Delivery Room Air Nasal Cannula Nasal Cannula O2 Flow Rate 2.00 2.00 05/23/22 05/23/22 05/23/22 05/23/22 11:00 12:00 12:00 12:00 Temp 36.7 Pulse 89 90 Resp 17 B/P (MAP) Pulse Ox 96 95 99 O2 Delivery Nasal Cannula Nasal Cannula Room Air O2 Flow Rate 2.00 2.00 05/23/22 05/23/22 05/23/22 05/23/22 12:59 13:00 13:07 14:00 Pulse 89 89 89 87 Resp 16 11 B/P (MAP) 160/54 Pulse Ox 98 100 O2 Delivery Nasal Cannula Nasal Cannula O2 Flow Rate 2.00 2.00 05/23/22 05/23/22 05/23/22 15:00 15:00 15:51 Pulse 86 86 Resp 10 B/P (MAP) 177/96 (123) Arterial Line Pulse Ox 99 O2 Delivery Nasal Cannula Nasal Cannula O2 Flow Rate 2.00 2.00 05/23/22 00:00 Intake Total 900 ml Output Total 900 ml Balance 0 ml Weight (Pounds): 230 Weight (Ounces): 0.0 Weight (Calculated Kilograms): [id number] Constitutional: AAO x 3, well-developed, well-nourished, other (yellowish appearance) Respiratory: No accessory muscle use; chest expansion is symmetric, chest is bilaterally symmetric, other (fair to good, bilateral air entry that is diminished at the bases) Cardiovascular: regular rate-rhythm, S1 and S2, systolic murmur (soft YASSINE at card base) Gastrointestional: No tender; soft, round; No guarding, No rebound; audible bowel sounds Extremities: No clubbing, No cyanosis; no lower extremity edema bilateral; No significant edema Neurologic/Psychiatric: other (able to move all limbs) Skin: No cyanosis Results/Procedures: Labs Laboratory Tests 05/23/22 03:25: White Blood Count 8.0, Red Blood Count 3.93, Hemoglobin 11.0L, Hematocrit 34L, Mean Corpuscular Volume 86, Mean Corpuscular Hemoglobin 28, Mean Corpuscular Hemoglobin Concent 32, Red Cell Distribution Width 17.8H, Platelet Count 153, Mean Platelet Volume 10.2, Immature Granulocyte % (Auto) 1, Neutrophils (%) (Auto) 69, Lymphocytes (%) (Auto) 10L, Monocytes (%) (Auto) 15H, Eosinophils (%) (Auto) 4, Basophils (%) (Auto) 0, Neutrophils # (Auto) 5.6, Lymphocytes # (Auto) 0.8L, Monocytes # (Auto) 1.2H, Eosinophils # (Auto) 0.3, Basophils # (Auto) 0.0, Immature Granulocyte # (Auto) 0.1, Sodium Level 136, Potassium Level 3.8, Chloride Level 101, Carbon Dioxide Level 21, Anion Gap 14, Blood Urea Nitrogen 47H, Creatinine 3.52H, Estimat Glomerular Filtration Rate 13, BUN/Creatinine Ratio 13, Glucose Level 88, Calcium Level 10.3H, Corrected Calcium 11.1H, Phosphorus Level 4.0, Magnesium Level 2.0, Total Bilirubin 2.9H, Aspartate Amino Transf (AST/SGOT) 113H, Alanine Aminotransferase (ALT/SGPT) 969#H, Alkaline Phosphatase 96, Total Protein 5.6L, Albumin 3.0L, Digoxin Level 1.06 05/23/22 12:15: Microbiology 05/17/22 Urine Culture - Final, Complete Escherichia coli 05/17/22 Blood Culture - Final, Complete Staph, Coag Neg (FINANCIAL INVESTMENT ADVISER) 05/17/22 MRSA Screen - Final, Complete MRSA not isolated Laboratory Tests 05/22/22 04:45 05/23/22 03:25 A/P: Assessment: Shock: septic and/or cardiogenic - mild troponin elevation due to type 2 IN due to hypotension - requiring pressor support - pressor support off Hepatitis and marked jaundice of undetermined etiology - managed by Hosp and ICU svces Coagulopathy - due to hepatic failure and due to apixaban PAF - OAC with Eliquis 5mg BID - did not take on 05/15 and 05/16/22 due to n/v, resumed today - has been non-compliant with Amiodarone tx on 05/15 and 05/16/22 d/t n/v - stopped due to hepatic failure during this hospitalization Chronic HFrEF due to NICM (primarily managed by her ad taker Dr Woodward in [place], [place]) - Echocardiogram of 04-08-[address] Felton showed LVEF 10-15% with severe diffuse hypokinesis. LA and RA dilated. Mod to severe AoR. Mod MR. Mod to severe TR. PASP 50-55 mmHg - She reports she had a sleep study done that was "inconclusive" - she does not use CPAP or supplemental oxygen - managed by Dr. Kirk - AICD - [facility] in September [facility] (single chamber device) - followed by Dr. Woodward - Echo on 05-17-22: LVEF 20-25%, global hypokinesis of LV, mild to mod MR, PASP 35-40 mmHg Acute renal failure, worsening - ATN due to hypotension vs hepatorenal syndrome - Cr essentially unchanged (3.52 today) HLD - statin tx H/o DVT R leg - OAC with Eliquis H/O Breast Cancer - has had a mastectomy Plan: * Off pressors if maintaining pressure * HR controlled * Not suitable for bb or NIRALI-inhib/ARB due to low bp and ac renal failure * Monitor labs closely * INR 1.7 today - Eliquis has already been resumed * Dig level 1.07 this morning (has been off digoxin) CHAU POPE MD FACP [facility] May 23, 2022 17:06
[2022-05-23 19:11] VITALS: BP 143/63
[2022-05-23] MEDS: cefTRIAXone 2,000 MG in NS (IVPB) 50 ML IV SCH (19:43)
[2022-05-23 23:40] VITALS: BP 134/68
[2022-05-24 04:04] VITALS: BP 178/92
[2022-05-24 04:28] LABS: BASOPHILS % (AUTO) 0 % (0-10); EOSINOPHILS # (AUTO) 0.4 10^3/uL (0.0-0.3); EOSINOPHILS % (AUTO) 5 % (0-10); HEMATOCRIT 32 % (35-52); HEMOGLOBIN 10.3 g/dL (11.5-16.0); LYMPHOCYTES # (AUTO) 0.8 10^3/uL (1.0-4.0); LYMPHOCYTES % (AUTO) 11 % (12-44); MEAN CORPUSCULAR HEMOGLOBIN 28 pg (25-34); MEAN CORPUSCULAR HGB CONC 32 g/dL (32-36); MEAN CORPUSCULAR VOLUME 87 fL (80-99); MEAN PLATELET VOLUME 10.2 fL (9.0-12.2); MONOCYTES # (AUTO) 1.2 10^3/uL (0.0-1.0); MONOCYTES % (AUTO) 16 % (0-12); NEUTROPHILS # (AUTO) 5.2 10^3/uL (1.8-7.8); NEUTROPHILS % (AUTO) 68 % (42-75); PLATELET COUNT 143 10^3/uL (130-400); WHITE BLOOD COUNT 7.7 10^3/uL (4.3-11.0)
[2022-05-24 04:51] LABS: ALBUMIN 2.9 GM/DL (3.2-4.5); BILIRUBIN,TOTAL 2.7 MG/DL (0.1-1.0); CALCIUM 10.2 MG/DL (8.5-10.1); CREATININE SERUM 3.03 MG/DL (0.60-1.30); MAGNESIUM 1.9 MG/DL (1.6-2.4); PHOSPHORUS 3.6 MG/DL (2.3-4.7); POTASSIUM 3.6 MMOL/L (3.6-5.0); TOTAL PROTEIN 5.4 GM/DL (6.4-8.2)
[2022-05-24] MEDS: POTASSIUM CL 10MEQ/50ML IVPB 50 ML IV SCH (05:06)
[2022-05-24] MEDS: MAGNESIUM 1 GM/100 ML IVPB 100 ML IV SCH (05:07)
[2022-05-24] MEDS: KCL 20 MEQ TAB (K-DUR) PO SCH (05:07)
[2022-05-24 08:00] VITALS: BP 184/77
[2022-05-24] MEDS ORDERED: KCL 20 MEQ TAB (K-DUR) PO ONE (08:00)
[2022-05-24] MEDS: APIXABAN 5 MG (ELIQUIS) TABLET PO SCH (08:10)
[2022-05-24] MEDS: SENNOSIDES 8.6 MG (SENOKOT) TAB PO SCH (08:10)
[2022-05-24] MEDS: DOCUSATE SODIUM 100 MG (COLACE) CAP PO SCH (08:10)
--- NOTE | 2022-05-24 10:01 | Progress Note - Cardiology ---
Cardiology SOAP Progress Note Subjective: Sitting up in bed C/O gen fatigue and weakness No c/o CP, palpitations, or dyspnea C/O mild swelling in legs and hands Objective: I&O/Vital Signs 05/23/22 05/24/22 05/24/22 05/24/22 23:40 01:00 04:04 07:13 Temp 36.1 36.5 Pulse 84 91 81 81 Resp 18 18 B/P (MAP) 134/68 (90) 178/92 (120) Pulse Ox 99 97 O2 Delivery Room Air Room Air 05/24/22 05/24/22 08:00 08:00 Temp 36.7 Pulse 79 Resp 20 B/P (MAP) 184/77 (112) Pulse Ox 97 O2 Delivery Room Air Room Air O2 Flow Rate 2.00 05/24/22 00:00 Intake Total 830 ml Output Total 600 ml Balance 230 ml Weight (Pounds): 230 Weight (Ounces): 0.0 Weight (Calculated Kilograms): [id number] Constitutional: AAO x 3, well-developed, well-nourished Respiratory: No accessory muscle use; chest expansion is symmetric, chest is bilaterally symmetric, other (fair to good, bilateral air entry that is diminished at the bases) Cardiovascular: regular rate-rhythm, S1 and S2, systolic murmur (soft YASSINE at card base) Gastrointestional: No tender; soft, round; No guarding, No rebound; audible bowel sounds Extremities: other (mild bilat LE swelling); No clubbing, No cyanosis, No significant edema Neurologic/Psychiatric: other (able to move all limbs) Skin: No cyanosis; other (pale yellowish skin color - improving) Results/Procedures: Labs Laboratory Tests 05/23/22 12:15: Urine Collection Type 24, Timed Urine Volume 2 1700, Urine Total Volume (Calcium) 1700, Urine Calcium mg/Day 51, Urine Calcium mg/dL 3.0, Urine Creatine Timed 0.7L, Ur Creatinine (Citric Acid) mg/dL 43 05/24/22 04:18: White Blood Count 7.7, Red Blood Count 3.66L, Hemoglobin 10.3L, Hematocrit 32L, Mean Corpuscular Volume 87, Mean Corpuscular Hemoglobin 28, Mean Corpuscular Hemoglobin Concent 32, Red Cell Distribution Width 17.8H, Platelet Count 143, Mean Platelet Volume 10.2, Immature Granulocyte % (Auto) 1, Neutrophils (%) (Auto) 68, Lymphocytes (%) (Auto) 11L, Monocytes (%) (Auto) 16H, Eosinophils (%) (Auto) 5, Basophils (%) (Auto) 0, Neutrophils # (Auto) 5.2, Lymphocytes # (Auto) 0.8L, Monocytes # (Auto) 1.2H, Eosinophils # (Auto) 0.4H, Basophils # (Auto) 0.0, Immature Granulocyte # (Auto) 0.1, Sodium Level 138, Potassium Level 3.6, Chloride Level 102, Carbon Dioxide Level 24, Anion Gap 12, Blood Urea Nitrogen 45H, Creatinine 3.03#H, Estimat Glomerular Filtration Rate 16, BUN/Creatinine Ratio 15, Glucose Level 83, Calcium Level 10.2H, Corrected Calcium 11.1H, Phosphorus Level 3.6, Magnesium Level 1.9, Total Bilirubin 2.7H, Aspartate Amino Transf (AST/SGOT) 64H, Alanine Aminotransferase (ALT/SGPT) 671#H, Alkaline Phosphatase 97, Total Protein 5.4L, Albumin 2.9L Microbiology 05/17/22 Urine Culture - Final, Complete Escherichia coli 05/17/22 Blood Culture - Final, Complete Staph, Coag Neg (TECHNICAL SUPPORT MANAGER) 05/17/22 MRSA Screen - Final, Complete MRSA not isolated Laboratory Tests 05/23/22 03:25 05/24/22 04:18 A/P: Assessment: Shock: septic and/or cardiogenic - mild troponin elevation due to type 2 NM due to hypotension - required pressor support - pressor support off Hepatitis and marked jaundice of undetermined etiology - managed by Hosp and ICU svces Coagulopathy - due to hepatic failure and due to apixaban - improved PAF - OAC with Eliquis 5mg BID - did not take on 05/15 and 05/16/22 due to n/v, has been resumed - had been non-compliant with Amiodarone tx on 05/15 and 05/16/22 d/t n/v - stopped due to hepatic failure during this hospitalization Chronic HFrEF due to NICM (primarily managed by her filler shredder machine Dr Woodward in [place], [place]) - Echocardiogram of 04-08-[address] Felton showed LVEF 10-15% with severe diffuse hypokinesis. LA and RA dilated. Mod to severe AoR. Mod MR. Mod to severe TR. PASP 50-55 mmHg - She reports she had a sleep study done that was "inconclusive" - she does not use CPAP or supplemental oxygen - managed by Dr. Kirk - AICD - implanted in September 2021 [facility] (single chamber device) - followed by Dr. Woodward - Echo on 05-17-22: LVEF 20-25%, global hypokinesis of LV, mild to mod MR, PASP 35-40 mmHg Acute renal failure, worsening - ATN due to hypotension vs hepatorenal syndrome - Cr improving, gradually HLD - statin tx H/o DVT R leg - OAC with Eliquis H/O Breast Cancer - has had a mastectomy Gen weakness - d/t prolonged critical illness Plan: * BP rising - Coreg has been resumed (lower dose than home dose) - increase as indicated/tolerated * HR controlled * Not suitable for bb or NIRALI-inhib/ARB due to low bp and ac renal failure * Cr gradually improving * Monitor labs closely * Continued Eliquis * Probable transfer to IRU today for PT and strengthening JOSIE WINKLER May 24, 2022 10:01
--- NOTE | 2022-05-24 11:03 | Discharge Summary ---
Diagnosis/Chief Complaint Date of Admission May 17, 2022 at 09:10 Date of Discharge May 24, 2022 at 09:45 Discharge Date: May 24, 2022 Admission Diagnosis Shock Primary Care Jg Kirk MD Discharge Diagnosis (1) Septic shock Status: Resolved (2) Cardiogenic shock Status: Resolved (3) E. coli UTI Status: Acute Assessment & Plan: -Finish course of ceftriaxone 2g IV Q24 hr and remove gomes catheter as appropriate. (4) Acute on chronic HFrEF (heart failure with reduced ejection fraction) Status: Acute Assessment & Plan: -05/17/22 Echo revealed EF of 20-25% -Will need close follow-up with cardiology upon discharge and initiation of appropriate HFrEF medications as they feel appropriate given patient's labwork. (5) ATN (acute tubular necrosis) Status: Acute (6) LUIS (acute kidney injury) Status: Acute Assessment & Plan: -Continue to encourage oral hydration and monitor Cr closely. (7) Shock liver Status: Acute Assessment & Plan: -Drastic improvement during hospital course. Continue to follow labs. (8) Unconjugated hyperbilirubinemia Status: Acute Assessment & Plan: Chronically elevated bilirubin. possible Gilbert Syndrome. Monitor labwork in the out-patient setting. (9) Gilbert syndrome Status: Chronic (10) Lactic acidosis Status: Resolved (11) NSTEMI (non-ST elevation myocardial infarction) Status: Acute (12) Hypercalcemia Status: Acute Assessment & Plan: -Patient maintained mild hypercalcemia dring her stay and was found to have elevated PTH with normal urine calcium. -Probable primary hyperparathyroidism. No indication for treatment at this time but should be followed up by PCP. (13) Splenic cyst Status: Acute Assessment & Plan: -discovered on CT 05/18/22 with recommendation for 3-month follow-up MRI w/ and w/out contrast to assess stability. Discharge Summary Procedures/Consulations Cardiology: Dr. Lundberg General Surgery: Dr. Berkowitz Tele-ICU: Dr. Vickers & Dr. Raya Discharge Physical Exam Allergies: Coded Allergies: codeine (Verified Allergy, Mild, HALLUCINATIONS, 01/18/17) Vitals & I&Os Vital Signs Date Time Temp Pulse Resp B/P (MAP) Pulse Ox O2 Delivery O2 Flow Rate FiO2 05/24/22 08:00 97 Room Air 2.00 05/24/22 08:00 36.7 79 20 184/77 (112) General Appearance: No Apparent Distress, WD/WN, Obese HEENT: PERRL/EOMI, Pharynx Normal, Moist Mucous Membranes Respiratory: Chest Non Tender, Normal Breath Sounds, No Accessory Muscle Use, No Respiratory Distress Cardiovascular: Regular Rate, Rhythm, No Murmur, Normal Peripheral Pulses Gastrointestinal: Normal Bowel Sounds, Non Tender, Soft Extremity: Normal Capillary Refill, Non Tender, No Calf Tenderness, Swelling (mild peripheral swelling) Skin: Normal Color, Warm/Dry Neurologic/Psychiatric: Alert, Oriented x3, Normal Mood/Affect, Other (generalized fatigue/weakness) Hospital Course Sandra Richter is a 71yo female with past medical history of paroxysmal A. fib/flutter on Eliquis, HFrEF, and HLD who was admitted to the hospital from 05/17/22 - 05/24/22. She presented with 1 day of nonbloody nonbilious vomiting and generalized weakness and was having heart palpitations at that time. She was found to be in Atrial fibrillation with RVR as well as septic vs. cardiogenic shock which required pressors until 05/22. Her hospital course was complicated by ischemic hepatitis, LUIS secondary to acute tubular necorosis, E. Coli UTI, and chronic HFrEF. Her AST and ALT reached as high as 4835 and 4623 respectively but had improved to 64 and 671 respectively by time of discharge. Her Creatinine reached as high as 3.59 but had improved to 3.03 by time of discharge and patient was having normal urine production. Patient will need close follow up in rehab and with PCP to ensure liver and kidney function continue to improve. She received 6 days of ceftriaxone 2g IV Q24hr for her UTI and had a gomes catheter in flace at time of discharge to rehab. An echo on 05/17/22 revealed patient had an EF of 20-25% and patient was followed by cardiology team and treated intermittently with IV lasix. Treatment options for patients HFrEF were limited due to liver/kidney function. During her stay she was found to have elevated calcium with an elevated PTH and normal 24 hr urine calcium indicating likely primary hyperparathyroidism. Patient was very sick upon arrival but at time of discharge has converted to regular sinus rhythm with marked improvement in lab values and hemodynamically stable without pressors. She is being discharged to in-patient rehabilitation unit where she can work with PT/OT to regain her strength and be monitored closely prior to discharge home. Labs (last 24 hrs) Laboratory Tests 05/23/22 12:15: Urine Collection Type 24, Timed Urine Volume 2 1700, Urine Total Volume (Calcium) 1700, Urine Calcium mg/Day 51, Urine Calcium mg/dL 3.0, Urine Creatine Timed 0.7L, Ur Creatinine (Citric Acid) mg/dL 43 05/24/22 04:18: White Blood Count 7.7, Red Blood Count 3.66L, Hemoglobin 10.3L, Hematocrit 32L, Mean Corpuscular Volume 87, Mean Corpuscular Hemoglobin 28, Mean Corpuscular Hemoglobin Concent 32, Red Cell Distribution Width 17.8H, Platelet Count 143, Mean Platelet Volume 10.2, Immature Granulocyte % (Auto) 1, Neutrophils (%) (Auto) 68, Lymphocytes (%) (Auto) 11L, Monocytes (%) (Auto) 16H, Eosinophils (%) (Auto) 5, Basophils (%) (Auto) 0, Neutrophils # (Auto) 5.2, Lymphocytes # (Auto) 0.8L, Monocytes # (Auto) 1.2H, Eosinophils # (Auto) 0.4H, Basophils # (Auto) 0.0, Immature Granulocyte # (Auto) 0.1, Sodium Level 138, Potassium Level 3.6, Chloride Level 102, Carbon Dioxide Level 24, Anion Gap 12, Blood Urea Nitrogen 45H, Creatinine 3.03#H, Estimat Glomerular Filtration Rate 16, BUN/Creatinine Ratio 15, Glucose Level 83, Calcium Level 10.2H, Corrected Calcium 11.1H, Phosphorus Level 3.6, Magnesium Level 1.9, Total Bilirubin 2.7H, Aspartate Amino Transf (AST/SGOT) 64H, Alanine Aminotransferase (ALT/SGPT) 671#H, Alkaline Phosphatase 97, Total Protein 5.4L, Albumin 2.9L Microbiology 05/17/22 Urine Culture - Final, Complete Escherichia coli 05/17/22 Blood Culture - Final, Complete Staph, Coag Neg (PAN HELPER) 05/17/22 MRSA Screen - Final, Complete MRSA not isolated Patient resulted labs reviewed. Pending Labs Laboratory Tests 05/24/22 04:18: White Blood Count 7.7, Red Blood Count 3.66, Hemoglobin 10.3, Hematocrit 32, Mean Corpuscular Volume 87, Mean Corpuscular Hemoglobin 28, Mean Corpuscular Hemoglobin Concent 32, Red Cell Distribution Width 17.8, Platelet Count 143, Mean Platelet Volume 10.2, Immature Granulocyte % (Auto) 1, Neutrophils (%) (Auto) 68, Lymphocytes (%) (Auto) 11, Monocytes (%) (Auto) 16, Eosinophils (%) (Auto) 5, Basophils (%) (Auto) 0, Neutrophils # (Auto) 5.2, Lymphocytes # (Auto) 0.8, Monocytes # (Auto) 1.2, Eosinophils # (Auto) 0.4, Basophils # (Auto) 0.0, Immature Granulocyte # (Auto) 0.1, Sodium Level 138, Potassium Level 3.6, Chlo ride Level 102, Carbon Dioxide Level 24, Anion Gap 12, Blood Urea Nitrogen 45, Creatinine 3.03, Estimat Glomerular Filtration Rate 16, BUN/Creatinine Ratio 15, Glucose Level 83, Calcium Level 10.2, Corrected Calcium 11.1, Phosphorus Level 3.6, Magnesium Level 1.9, Total Bilirubin 2.7, Aspartate Amino Transf (AST/SGOT) 64, Alanine Aminotransferase (ALT/SGPT) 671, Alkaline Phosphatase 97, Total Protein 5.4, Albumin 2.9 Imaging: Reviewed Imaging Report Discussion & Recommendations Patient is being discharged from the in-patient service to the in-patient rehabilitation unit. Please see Dr. Bender D/C instructions and refer to attached documentation for more detailed information not provided in hospital course. Discharge Home Medications: Active Scripts Active Reported Furosemide 40 Mg Tablet 40 Mg PO DAILY Carvedilol 25 Mg Tablet 12.5 Mg PO BID TAKES OF A 25MG TAB Jardiance (Empagliflozin) 10 Mg Tablet 10 Mg PO DAILY Amiodarone HCl 200 Mg Tablet 400 Mg PO DAILY TAKES 2 (200MG) TABS Spironolactone 25 Mg Tablet 12.5 Mg PO DAILY TAKES OF A 25MG TAB Potassium Gluconate 595 MG (Potassium Gluconate) 595 Mg (99 Mg) Tablet 99 Mg PO DAILY PRN Vitamin B-12 (Cyanocobalamin (Vitamin B-12)) 1,000 Mcg Tablet 1,000 Mcg PO DAILY Fish Oil 1,200 mg Fish Oil (Fish Oil/Dha/Epa) 1,200 Mg-144 Mg-216 Mg Capsule 1 Each PO DAILY Meclizine HCl 25 Mg Tablet 25 Mg PO DAILY Eliquis (Apixaban) 5 Mg Tablet 5 Mg PO BID Venlafaxine HCl ER (Venlafaxine HCl) 150 Mg Cap.er.24h 150 Mg PO DAILY Letrozole 2.5 Mg Tablet 2.5 Mg PO DAILY Instructions to patient/family Please see electronic discharge instructions given to patient. CARISSA KILPATRICK May 24, 2022 11:03
== END 2022-05-24 09:45 | DRG 871 ==
LOC: EDUNIT# 07:49 → ER 07:50 → ICU 09:10 → 4TH 05-23 15:52
PROVIDERS: ADMIT Internal Medicine; ATTEND Internal Medicine
PROC: 02HV33Z Insertion of Infusion Device into Superior Vena Cava, Percutaneous Approach (ICD-10-PCS; principal; 2022-05-17)
DX: A41.51 Sepsis due to Escherichia coli [E. coli] (principal); I21.A1 Myocardial infarction type 2; R57.0 Cardiogenic shock; R65.21 Severe sepsis with septic shock; N17.0 Acute kidney failure with tubular necrosis; I50.23 Acute on chronic systolic (congestive) heart failure; K72.00 Acute and subacute hepatic failure without coma; N39.0 Urinary tract infection, site not specified; I48.92 Unspecified atrial flutter; E87.20 Acidosis, unspecified; I42.9 Cardiomyopathy, unspecified; I48.0 Paroxysmal atrial fibrillation; Z79.01 Long term (current) use of anticoagulants; I11.0 Hypertensive heart disease with heart failure; E80.4 Gilbert syndrome; E16.2 Hypoglycemia, unspecified; E83.52 Hypercalcemia; I08.3 Combined rheumatic disorders of mitral, aortic and tricuspid valves; D73.4 Cyst of spleen; E78.5 Hyperlipidemia, unspecified; M19.91 Primary osteoarthritis, unspecified site; H54.3 Unqualified visual loss, both eyes; Z95.0 Presence of cardiac pacemaker; Z66 Do not resuscitate; Z86.718 Personal history of other venous thrombosis and embolism; Z85.3 Personal history of malignant neoplasm of breast; Z79.84 Long term (current) use of oral hypoglycemic drugs; Z79.899 Other long term (current) drug therapy; Z88.5 Allergy status to narcotic agent; Z90.11 Acquired absence of right breast and nipple
CPT/HCPCS: 36415; 71045; 74176; 76705; 80048; 80053; 80074; 80162; 81000; 82010; 82247; 82248; 82340; 82533; 82607; 82728; 82746; 82805; 82947; 83010; 83540; 83550; 83605; 83690; 83735; 83880; 83970; 84100; 84145; 84443; 84484; 85007; 85025; 85027; 85045; 85610; 85730; 86706; 86803; 87040; 87077; 87081; 87088; 87186; 87636; 93005; 93041; 93306; 96365; 96375; 96376

== ENCOUNTER 2022-05-24 09:15 | Inpatient (IN) | payer MEDICARE ==
[~2022-05-24] VITALS: Ht 172.7 cm; Wt 117.0 kg
[2022-05-24] VITALS (7 sets, daily range): BP systolic 126–235; BP diastolic 60–126
[~2022-05-24 09:15] MED LIST changes: +POTA99TA17 PO
--- OUTSIDE RECORDS SUMMARY | 2022-05-24 09:22 | XMS REPORT ---
Author Author [facility] Organization [facility] Address Unknown Phone Unavailable Care Team Providers Care Erp Engineer Name Role Phone Jg Kirk MD PCP iMreya Waggoner SCOUTS Unavailable Aurora Oleary SCOUTS Unavailable Unavailable Deysi Johnson MD Unavailable Yeni Willis PA-C Unavailable Michelle Martinez RN Unavailable Unavailable Jeanie Almonte SCOUTS Unavailable Active Problems Problem Noted Date Thyroid mass 10/25/2019 Invasive ductal carcinoma of breast, female, right 1 05/16/2017 Malignant neoplasm of upper-outer quadrant of right b reast in female, 02/02/2018 estrogen receptor positive Cancer Staging: Clinical stage from 02/06/2018: Stage IB (cT2(2), cN0(f), cM0, G2, ER: Positive, OH: Positive, HE R2: Negative) - Signed by Kathya Castañeda PA-C on 02/27/2018 Pathologic stage from 03/30/2018: Stage IIA (pT2, pN0(sn), cM0, G3, ER: Positive, OH: Negative, HER2: Positive) - Signed by Jorge Saucedo MD on 04/03/2018 Overview: DIAGNOSIS: 1. Right grade 2 IDC (ER99%, PR50%, HER 2 0, Ki-67 14%) at 9:30 5cm FTN, dx 01/2018 2. Right grade 2 IDC (ER/PR0%, HER2 3+, Ki-67 94%) at 9:00, dx 01/2018 3. Right LCIS at 9:00, dx 01/2018 4. H/o Left IDC dx 1980 5. H/o Right LCIS, radial scar, papillo ma dx 2008 HISTORY: Ms. Richter is a fema le who [facility]2018 at age 67 f or pre-biopsy work up of right breast mass. She had no breast concerns when she presented for her screening mammogram 01/08/2018 when an a bnormality was identified in the right breast at 9:30. Diagnostic mammo gram and ultrasound were performed which revealed an additional mass at 12 :30 as well as 2 suspicious axillary lymph nodes. Right breast sono-guided b iopsy at 9:30 02/06/18 () revealed grade 2 invasive ductal carcinoma. Righ t breast sono-guided biopsy at 12:30 02/06/18 () revealed usual ductal hype rplasia and columnar cell change. Right axillary sono-guided biopsy () revealed benign lymphoid tissue. Additional biopsy of the mass a t 9:00 was recommended. Ms. Richter underwent breast MRI which showed anoth er suspicious mass at 10:00 and ultrasound biopsy was recommended. Righ t breast sono-guided biopsy at 9:00 02/23/18 () revealed lobular carcinom a in situ. Right breast sono-guided biopsy at 10:00 02/23/18 () revealed grade 2 invasive ductal carcinoma. She proceeded with Right total mastecto my/SLNB on 03/16/2018. PATHOLOGY: Tumor: 2.8 x 2.3 x 1.0 cm at 10:00; no residual cancer at 9:30 Margins Free From Tumor: Yes ER: positive OH: negative Her 2: positive Grade: 3 Lymph Nodes: 0/2 LVSI: yes Extranodal extension: no BREAST IMAGING: Mammogram: -- Screening mammogram 01/08/2018 () r evealed there were scattered areas of fibroglandular density. There was a spiculated mass in the upper outer right breast at mid to posterior depth with faint associated calcifications. There was an additional 6 mm focal asymmetry with associated calcifications and possible architectural distortion in the upper outer right breast at middle dept h, approximately 4 cm anterolateral to the dominant spiculated mass. Additi onally, there were loosely grouped calcifications within the inner right b reast at posterior depth, which may have increased when compared with prior examinations. Right breast diagnostic mammogram and ultrasound wer e recommended for further evaluation. There were stable post ther apeutic changes in the left breast. -- Right diagnostic mammogram 01/31/2018 ([facility]) revealed spiculated mass in the right breast at 9:30, 5 cm from the nipple measuring up to 3.6 cm transverse. There was architectural di stortion with associated calcifications at 9:00, 3 cm from the n ipple measuring up to 1.3 cm. Multiple additional areas of grouped am orphous and mildly pleomorphic calcifications were noted throughout th e right breast. Ultrasound: -- Right targeted ultrasound 01/31/2018 ([facility]) revealed irregular hypoechoic mass in the right breast at 9:30, 5 cm from the nipple measuring 2.3 x 1.0 x 2.7 cm with internal blood flow. Thi s likely corresponds to the dominant spiculated left breast mass with associ ated calcification seen on mammogram. Mildly irregular hypoechoic mass in the right breast at 9:00, 3 cm from the nipple measuring 1.5 x 0.3 x 1.3 cm with internal blood flow. This likely corresponds smaller spicula santo mass with associated calcifications seen on mammogram. Alexy tional irregular hypoechoic mass in the right breast at 12:30, 5 cm of the nipple measuring 2.0 x 0.8 x 2.1 cm with internal blood flow. Punctate brig ht reflectors within the mass compatible with calcifications. This li bernardino corresponds to one of the numerous additional grouped calcificati ons seen on mammogram. 2 right axillary lymph nodes with cortical thic kening measuring 0.3 cm. Few additional normal-appearing right axill myesha lymph nodes. -- Right breast targeted ultrasound ([facility]) was performed of the right breast for further evaluation of an additional suspicious mass seen on same-day MRI. At 10:00, 5 cm from th e nipple, there was an irregular, hypoechoic mass with posterior acoustic shadowing which was difficult to define, though likely measured at least 2.7 x 2.3 x 1.4 cm. This was felt to correspond to an additional suspicio us spiculated mass seen on mammography. MRI: -- Breast MRI 02/23/18 ([facility]) revealed RI GHT BREAST: There was a 1.4 cm spiculated mass in the right breast at the 9:30 o'clock position containing a marker compatible with the known site of cancer. Additionally, 3 cm posteriorly there was a spiculated 2.5 cm mass corresponding to the larger spiculated mass on mammogram. Between t he 2 masses, there was contiguous nonmasslike enhancement. Collectively t hese areas measured 6.5 cm AP by 2.8 cm transverse by 4 cm craniocaudal. On MR, the most anterior extent of the malignancy was greater than 5 cm from t he nipple. LEFT BREAST: Prior left subtotal mastectomy and axillary dissec tion. No suspicious areas of enhancement within the residual breast tissue. Ancillary findings: None. REPRODUCTIVE HEALTH: Age at first Menarche: 14 Age at First Live : 31 : 1 Para: 1 PROCEDURE: 1. Left Lumpectomy 1980 (Dr. Arreola) 2. Right wire-localized excisional biop sy 2008 (Dr. Helms) 3. Right total mastectomy/SLNB 03/16/20 (Dr. Galeana) PERTINENT PMH: Left breast IDC- 1980, Right LCIS and ADH- 2008, CHF FAMILY HISTORY: Breast cancer- mother (55), Maternal grandmother (66). No family history of ovarian cancer. PHYSICAL EXAM on PRESENTATION: Left - S/p lumpectomy/ALND. Significantly smaller than right. Breast is firm with significant radiation skin changes. Right - 3.5 cm mass at 9:30 with post b iopsy changes at 12:30. No supraclavicular or axillary adenopathy. MEDICAL ONCOLOGY: Dr. Saucedo PRESENT T HERAPY: Adjuvant taxotere/carbo (had to omit Herceptin due to low EF); Femar a/Zometa started 08/2108 REFERRED BY: Dr. Christina Barksdale Postmenopausal 11/21/2010 Overview: Ms. Richter is a 66 y/o woman with HO Br east cancer. BRCA negative. PRIOR THERAPY: Has been followed since her original di agnosis for postmenopausal issues. Last seen in 11/2013. HPI: Ms. Richter is a 65 yo female w ho was diagnosed with invasive ductal carcinoma of the left breast in 1980. She was treated by Dr. Arreola with lumpectomy, radiation therapy, and chemotherapy. She was noted to have significant dystrophic calcifications i n the treated left breast on mammography in 2008; however, there wer e some new calcifications at 6:00 in the inferior right breast, and stereota ctic biopsy of those on 10/03/08 showed LCIS, a radial sclerosing lesion , a papilloma, and florid hyperplasia. On November 17, 2008 an excisi onal biopsy of the right breast was performed that showed ADH, no upgrade i n disease. She consulted with Dr. Johnson in May 2011 to discuss rec onstruction of her left breast; she has decided to undergo left mastectomy with RICCO flap reconstruction and right reduction mammoplasty and mastope xy. She does not have a surgery date with Dr. Johnson as she wanted to wait until after her son's wedding in October 2011. MM12/20/16 pending results Colonoscopy: denies DEXA: 12/22/15 stable osteopenia Last PAP in 12/08/14: negative History of abnormal paps. Denies change in medical/surgical histo cecille. Last Assessment & Plan: Formatting of t his note might be different from the original. Sandra Richter is a 66 y.o. female with family h/o breast cancer. Presents for annual pelvic/WIND DEVELOPMENT DIRECTOR exam. JOANNA today. MMG pending. PAP not collected today d/t HPV (-) status 11/2015 with negative cellular change. Discussed establishing care with OBG YN. Suggest Dr. Jamin Barksdale. Amb referral sent for well woman visit 1 ye ar. Aware to call with concerns/symptoms . Otherwise resume annual visits with OBGYN. Elevated blood pressure reading without diagnosis of hypertension 11/30/2009 Last Assessment & Plan: Formatting of t his note might be different from the original. BP up in clinic today but usual reading s 120/70s. Will encourage her to maintain close track. We'll see if she has LV hypertrophy on echo. If she does, then we'll be more sure that her BP control is suboptimal and we can decide about increasing candesartan and or Carvedilol. Nonischemic cardiomyopathy 11/26/2009 Overview: A. 10/31- Dx CHF: Echo: EF 30%, LVEDD 6 , Cath: EF 15%, normal coronary arteries. B. 03/03 Echo: EF 35%, LV 6.1 C. 01/02 EF 55% LV 4.5 D. 09/03 Poor endocardial visualization LV 4.9 EF 30% w/ definity E. 12/12/05 Jaspreet thall EF 50% Fixed apic al defect F. 11/30/09- Echo: EF 25=30%. Mild concen tric hypertrophy of the left ventricle. Mild aortic regurgitation. G. 12/01/09 Regadenoson thallium: No isch emia. EF 44%. EDV 126mL Last Assessment & Plan: Formatting of t his note might be different from the original. She has no clear symptoms of heart fail ure with last assesments Ejsection fraction 35% June, and 50% by nuc lear in November. Will obtain echo for LV size and function. She does not need a Doppler study. Respiratory Issues 11/26/2009 Overview: A. Sleep apnea syndrome, Normal Sleep S tudy per patient Farooq B. Restrictive lung disease due to post radiation changes. Migraine headache 11/26/2009 Overview: A. Migraine headaches, by history. B. Frequent episodes of sinusitis. Hyperlipidemia 11/26/2009 Overview: A. 07/03- total 197, trig 205, HDL 49.6 LDL 106- no med B. 01/04- total 202, trig 212, HDL 40, L DL 120- add fish oil 6/d C. 07/05- total 198, trig 112, HDL 45.7, LDL 130- fish oil 6/d D. 07/06- total 200, trig 206, HDL 42, L DL 117- fish oil 6/d L ast Assessment & Plan: Formatting of th is note might be different from the original. Due for lipid profile, not on statin bu t has not had diabetes or vascular disease diagnosed. Lobular carcinoma in situ of breast 02/18/2009 Overview: DIAGNOSIS: 1. LCIS, radial sclerosing lesion, pierre lloma, and florid hyperplasia, 6:00 right breast on stereotactic bx 9, excisional biopsy with ADH in a papilloma 11/20/08. 2. History of invasive ductal carcinoma of the left breast dx in 1980. She was treated by Dr. Arreola with lumpecto my, radiation therapy, and chemotherapy HISTORY: Ms. Richter is a 60 yo Cauc[place] n female who was diagnosed with invasive ductal carcinoma of the left b reast in 1980. She was treated by Dr. Arreola with lumpectomy, radiation t herapy, and chemotherapy. She was noted to have significant dystrophic ca lcifications in the treated left breast on mammography in 2008; however, there were some new calcifications at 6:00 in the inferior right breast, a nd stereotactic biopsy of those on 10/03/08 showed LCIS, a radial sclerosing lesion, a papilloma, and florid hyperplasia. On November 17, 2008 an excisi onal biopsy of the right breast was performed that showed ADH, no upgrade i n disease. She consulted with Dr. Johnson in May 2011 to discuss rec onstruction of her left breast; she has decided to undergo left mastectomy with RICCO flap reconstruction and right reduction mammoplasty and mastope xy. She does not have a surgery date with Dr. Johnson as she wanted to wait until after her son's wedding in October 2011. FAMILY HISTORY: Her mother and grandmo ther have both had breast cancer. There is no known ovarian cancer. She i s BRCA negative. 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 Last Assessment & Plan: Formatting of t his note might be different from the original. Seeing Dr. Nichols tomorrow Other screening mammogram 10/01/2007 Current Oncology Plans No current plan information found. Past Plans Discontinue Reason Plan Provider Cycles Plan Name Start Date Discontinue Date Treatment Medications Therapy Complete Jorge Saucedo MD 6 of 6 cycles start ed OP BREAST 04/16/2018 08/30/2018 aprepitant DOCETAXEL + emulsion CARBOPLATIN (CINVANTI)CARBO platin (PARAPLATIN) IVPB (by AUC-SWOG)dexame thasone (DECADRON) IVPBDOCEtaxel (TAXOTERE) IVPB (non-DEHP/PVC)o ndansetron HCL (ZOFRAN)palonos etron(+) (ALOXI)pegfilgr astim (NEULASTA) Discontinue Reason Plan Provider Cycles Plan Name Start Date Discontinue Date Treatment Medications Plan Inactive for 3 Months or Greater Jorge Saucedo MD 6 of 9 cycles started OP SUPPORT 09/27/2018 02/10/2022 zoledronic acid ZOLEDRONIC ACID (ZOMETA)zoledro (EVERY 6 mc acid MONTHS) (ZOMETA) IVPB Radiation Treatments * No radiation treatments are documented for this patient in [facility]. Treatments may have been administered in another system. Resolved Problems Problem Noted Date Resolved Date Postmenopausal bleeding 10/01/2007 12/13/2009
--- OUTSIDE RECORDS SUMMARY | 2022-05-24 09:22 | XMS REPORT | Encounter Summary ---
Author Author [facility] Organization [facility] Address Unknown Phone Unavailable Care Team Providers Care Unix Administrator Name Role Phone Jg Kirk MD PCP Mireya Waggoner [employer] Unavailable Aurora Oleary [employer] HEL[employer] Unavailable Unavailable Deysi Johnson MD Unavailable Yeni WillisC Unavailable Michelle Martinez RN Unavailable Unavailable Jeanie Almonte [employer] Unavailable Reason for Referral * Radiology Services (Routine) - Authorized Diagnoses / Procedures Referred By Contact [facility] Diagn[facility] Malignant neoplasm of upper-outer quadrant of right breast in female, estrogen receptor positive (HCC) Aromatase inhibitor use Procedures BONE DENSITY [place] [address] [place] [address] Radiology [address] [facility]. [address] [place] [address] Radiology Referral ID Status Reason Start Date Expiration Visits Vi sits Date Requested Authorized [id number] Authorized 09/07/2021 09/07/2022 1 1 LACER Reason for Visit * Radiology Services (Routine) - Authorized Diagnoses / Procedures Referred By Contact [facility] Malignant neoplasm of upper-outer quadrant of right breast in female, estrogen receptor positive (HCC) Aromatase inhibitor use Procedures BONE DENSITY [place]INE[place] [address] [place] [address] [facility] Radiology [address] [facility] [address] [place], [place] Radiology Referral ID Status Reason Start Date Expiration Visits Vi sits Date Requested Authorized [id number] Authorized 09/07/2021 09/07/2022 1 1 Encounter Details Care Team Description Date [place] [address] [place] [address] 04/27/2022 Hospital Imaging: Mac edical Encounter Pavilion [address], [address] [place] [id number] Social History Date Tobacco Use Types Packs/Day Years Used Quit: 05/01/1974 Smoking Tobacco: Former Cigarettes 0.3 2 Smokeless Tobacco: Never Comments Alcohol Use Standard Drinks/Week No 0 (1 standard drink = 0.6 o z pure alcohol) Sex Assigned at Date Recorded Female 11/18/2019 3:05 PM CDT Date Recorded COVID-19 Exposure Response 04/27/2022 12:53 PM HAND LACER In the last 10 days, have you been in contact with N o / Unsure someone who was confirmed or suspected to have Coronavirus/COVID-19? documented as of this encounter Functional Status Date of Assessment Functional Status Response 04/27/2022 Does the patient have a hearing impairment: No 04/27/2022 Does the patient have a visual impairment: Yes 04/27/2022 Does the patient have impaired ambulation: No 04/27/2022 Does the patient have an activity of daily living No (ADL) impairment: 04/27/2022 Does the patient have an instrumental activity of No daily living (IADL) impairment: Date of Assessment Cognitive Status Response 04/27/2022 Does the patient have a cognitive impairment: No documented as of this encounter Medications at Time of Discharge Start Date End Date Medication Sig Dispensed Refills 03/17/2018 acetaminophen (TYLENOL) Take 1000 mg 40 tablet 0 500 mg tablet by mouth scheduled every 6 hours for the first 3 days following surgery followed by 1000 mg every 6 hours as needed for pain after post-operativ e day #3. Max of 4,000 mg of acetaminophen in 24 hours - do not exceed. aspirin EC 81 mg tablet Take 81 mg by 0 mouth daily. Take with food. carvedilol (COREG PO) Take 25 mg by 0 mouth twice daily. 02/06/2021 ELIQUIS 5 mg tablet Take 5 mg by 0 mouth twice daily. 02/06/2021 ENTRESTO 49-51 mg tablet Take 1 tablet 0 by mouth twice daily. 08/20/2019 letrozole (FEMARA) 2.5 mg Take one 90 tablet 3 tablet tablet by mouth daily. 12/23/2019 venlafaxine XR (EFFEXOR Take 150 mg 0 XR) 150 mg capsule by mouth daily. zolpidem 1.[address] under 0 tongue. documented as of this encounter Discharge Disposition Code Departure Means Destination Disposition Home Home or Self Care documented in this encounter Plan of Treatment Not on filedocumented as of this encounter Procedures Comments Procedure Name Priority Date/Time Associated Diag nosis BONE DENSITY SPINE/HIP Routine 04/27/2022 Maligna nt neoplasm of 1:51 PM HAND LACER upper-outer quadrant of right breast in female, estrogen receptor positive (HCC) Aromatase inhibitor use documented in this encounter Results * BONE DENSITY SPINE/HIP (04/27/2022 1:51 PM HAND LACER) Modality Anatomical Region Laterality Nuclear Medicine SPINE/LOWEXT Anatomical Location / Laterality Collection Method / Volume Jovita ection Time Received Time Specimen (Source) 04/27/2022 2:34 PM HAND LACER Impressions 04/27/2022 2:36 PM HAND LACER Interval decrease in bone mineral density of left total hip with statistically stable bone mineral density of the lumbar spine and right hip. Persistent low bone mass (osteopenia). General comments regarding interpretation of bone mineral density measurements: a) Consider FDA-approved medical therapies in the setting of 1) Hip or vertebral fracture, 2) Osteoporosis, and 3) low bone mass, referred to as osteopenia, with FRAX score of greater than or equal to 3% for hip fracture or greater than or equal to 20% for major osteoporotic fracture. Treatment may also be indicated based on clinical judgement and/or patient preference. b) Interval between BMD testing should be determined according to each patient's clinical status: typically one year after initiation or change of therapy is appropriate, with longer intervals once therapeutic effect is established. In conditions with rapid bone loss, such as glucocorticoid therapy, testing more frequently is appropriate. Finalized by Yoel Barreto M.D. on 04/27/2022 2:36 PM. Dictated by Yoel Barreto M.D. on 04/27/2022 2:34 PM. Narrative 04/27/2022 2:36 PM HAND LACER BONE DENSITOMETRY CLINICAL INDICATION: 71 years old Female, malignant neoplasm of upper outer quadrant of right breast in female, estrogen receptor positive. Aromatase inhibitor use. COMPARISON: 08/30/2018 FINDINGS: DEXA scan of the lumbar spine and bilateral hips were performed with [employer]. FRAX score was calculated from patient reported risk factors and femoral neck bone density. LUMBAR SPINE, L1-L4 Current: 1.188 g/cm2, T-score of -0.1 Previous: 1.206 g/cm2, T-score of +0.1 There are however hypertrophic degenerative changes of the lumbar spine which could artificially elevate the bone mineral density. LEFT FEMORAL NECK Current: 0.793 g/cm2, T-score of -1.8 Previous: 0.801 g/cm2, T-score of -1.7 LEFT TOTAL HIP Current: 0.871 g/cm2, T-score of -1.1 Previous: 0.943 g/cm2, T-score of -0.5 RIGHT FEMORAL NECK Current: 0.759 g/cm2, T-score of -2.0 Previous: 0.779 g/cm2, T-score of -1.9 RIGHT TOTAL HIP Current: 0.829 g/cm2, T-score of -1.4 Previous: 0.861 g/cm2, T-score of -1.2 FRAX SCORE 10 year risk hip fracture = 2% 10 year risk major osteoporotic fracture = 10.8% WHO Criteria for Diagnosis of Osteoporosis (T-score)* Normal (-1.0 and above) Low bone mass, referred to as osteopenia (Between -1.0 and -2.5) Osteoporosis (-2.5 and below) *Based on region with lowest bone mineral density. Procedure Note Yoel Barreto MD - 04/27/2022 BONE DENSITOMETRY CLINICAL INDICATION: 71 years old Female, malignant neoplasm of upper outer quadrant of right breast in female, estrogen receptor positive. Aromatase inhibitor use. COMPARISON: 08/30/2018 FINDINGS: DEXA scan of the lumbar spine and bilateral hips were performed with [employer]. FRAX score was calculated from patient reported risk factors and femoral neck bone density. LUMBAR SPINE, L1-L4 Current: 1.188 g/cm2, T-score of -0.1 Previous: 1.206 g/cm2, T-score of +0.1 There are however hypertrophic degenerative changes of the lumbar spine which could artificially elevate the bone mineral density. LEFT FEMORAL NECK Current: 0.793 g/cm2, T-score of -1.8 Previous: 0.801 g/cm2, T-score of -1.7 LEFT TOTAL HIP Current: 0.871 g/cm2, T-score of -1.1 Previous: 0.943 g/cm2, T-score of -0.5 RIGHT FEMORAL NECK Current: 0.759 g/cm2, T-score of -2.0 Previous: 0.779 g/cm2, T-score of -1.9 RIGHT TOTAL HIP Current: 0.829 g/cm2, T-score of -1.4 Previous: 0.861 g/cm2, T-score of -1.2 FRAX SCORE 10 year risk hip fracture = 2% 10 year risk major osteoporotic fracture = 10.8% WHO Criteria for Diagnosis of Osteoporosis (T-score)* Normal (-1.0 and above) Low bone mass, referred to as osteopenia (Between -1.0 and -2.5) Osteoporosis (-2.5 and below) *Based on region with lowest bone mineral density. IMPRESSION Interval decrease in bone mineral density of left total hip with statistically stable bone mineral density of the lumbar spine and right hip. Persistent low bone mass (osteopenia). General comments regarding interpretation of bone mineral density measurements: a) Consider FDA-approved medical therapies in the setting of 1) Hip or vertebral fracture, 2) Osteoporosis, and 3) low bone mass, referred to as osteopenia, with FRAX score of greater than or equal to 3% for hip fracture or greater than or equal to 20% for major osteoporotic fracture. Treatment may also be indicated based on clinical judgement and/or patient preference. b) Interval between BMD testing should be determined according to each patient's clinical status: typically one year after initiation or change of therapy is appropriate, with longer intervals once therapeutic effect is established. In conditions with rapid bone loss, such as glucocorticoid therapy, testing more frequently is appropriate. Finalized by Yoel Barreto M.D. on 04/27/2022 2:36 PM. Dictated by Yoel Barreto M.D. on 04/27/2022 2:34 PM. Jorge Saucedo MD DEXA ORDERABLES documented in this encounter Visit Diagnoses Diagnosis Malignant neoplasm of upper-outer quadr ant of right breast in female, estrogen receptor positive (HCC) Aromatase inhibitor use Use of aromatase inhibitors documented in this encounter Additional Health Concerns Noted Time Assessment 07/15/2021 1:15 PM CDT PHQ-2 Depression Total Score: 0 documented as of this encounter Care Teams Start Date End Date Unix Administrator Relationship Specialty 12/01/09 Jg Kirk MD PCP - General [facility] [address] 03/01/10 Mireya Waggoner, COOK HELPER [employer]UIT [facility] [place] [address] 10/15/10 Aurora Oleary APRN FWD ADDR UNKNOWN 05/25/11 Deysi Johnson MD Plastic [address] [facility] Surgery [address] [place] [address] 12/16/13 Yeni Willis PA-C Physician [facility] [place] [address] 12/25/13 Michelle Martinez, RN 12/08/14 Jeanie Almonte, [employer] HEL[employer] Gynecology [address] [place] [address] documented as of this encounter
--- OUTSIDE RECORDS SUMMARY | 2022-05-24 09:22 | XMS REPORT | Clinical Summary ---
Author Author [facility] Organization [facility] Address Unknown Phone Unavailable Care Team Providers Care Supply Chain Analyst Name Role Phone Jg Kirk MD PCP Mireya Waggoner NUTRITION TECHNICIAN Unavailable Aurora Oleary NUTRITION TECHNICIAN Unavailable Unavailable Deysi Johnson MD Unavailable Yeni Willis PA-C Unavailable Michelle Martinez RN Unavailable Unavailable Jeanie Almonte NUTRITION TECHNICIAN Unavailable Source Comments Some departments are not documenting in the electronic medical record. If you d o not see the information that you expected, contact Release of Information in [facility] Health Information Management department at [phone] for further assistan ce in locating additional records.[facility] Allergies Comments Active Allergy Reactions Severity Noted Date Codeine NAUSEA AND High 11/17/2008 VOMITING Tolerates tramadol Hydrocodone NAUSEA AND High 11/17/2008 VOMITING Oxycodone NAUSEA AND High 11/17/2008 VOMITING Medications End Date Status Medication Sig Dispensed Refills Start Date Active acetaminophen (TYLENOL) Take 1000 mg 40 tablet 0 1 500 mg tablet by mouth 8 scheduled every 6 hours for the first 3 days following surgery followed by 1000 mg every 6 hours as needed for pain after post-operativ e day #3. Max of 4,000 mg of acetaminophen in 24 hours - do not exceed. Active aspirin EC 81 mg tablet Take 81 mg by 0 mouth daily. Take with food. Active letrozole (FEMARA) 2.5 mg Take one 90 tablet 3 tablet tablet by 0 mouth daily. Active venlafaxine XR (EFFEXOR Take 150 mg 0 XR) 150 mg capsule by mouth 0 daily. Active carvedilol (COREG PO) Take 25 mg by 0 mouth twice daily. Active zolpidem 1.[address] under 0 tongue. Active ELIQUIS 5 mg tablet Take 5 mg by 0 mouth twice 1 daily. Active ENTRESTO 49-51 mg tablet Take 1 tablet 0 02/06 by mouth 1 twice daily. 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 -- Right diagnostic mammogram 01/31/2018 () revealed spiculated mass in the right breast [...] family h/o breast cancer. Presents for annual pelvic/SUPERVISOR INSECTICIDE exam. JOANNA today. MMG pending. PAP not [...] syndrome, Normal Sleep S tudy per patient [address] B. Restrictive lung disease due to post [...] ovarian cancer. She i s BRCA negative. 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 Last Assessment & Plan: Formatting of t his note might be different from the original. Seeing Dr. Nichols tomorrow Other screening mammogram 10/01/2007 Resolved Problems Problem Noted Date Resolved Date Postmenopausal bleeding 10/01/2007 12/13/2009 Encounters Care Team Description Date Type Specialty Jorge Saucedo MD Care Coordination (Lab and bone density results) 05/04/2022 Telephone Oncology Jorge Saucedo MD Care Coordination (Bone density and lab results) 04/29/2022 Telephone Oncology Mariaa Ferguson, NUTRITION TECHNICIAN-MINERAL INDUSTRY TEACHER Esthela Hastings, NUTRITION TECHNICIAN-MINERAL INDUSTRY TEACHER Malignant neoplasm of upper-outer quadra nt of right breast in female, estrogen receptor positive (HCC) (Primary Dx); Dense breast tissue; Aromatase inhibitor use; Osteopenia of right hip 04/27/2022 Office Visit Oncology Jorge Saucedo MD 04/27/2022 Hospital Radiology Encounter 04/27/2022 Travel from Last 3 Months Immunizations Name Administration Dates Next Due COVID-19 (MODERNA), mRNA 07/31/2020, 07/03/2020 vacc, 100 mcg/0.5 mL (PF) Surgical History Surgery Date Site/Laterality Comments HX BREAST LUMPECTOMY 05/01/1980 - left breast 04/30/1981 HX BREAST BIOPSY 11/17/08 right breast HX TUBAL LIGATION 05/01/1983 - 04/30/1984 CHOLECYSTECTOMY 05/01/1992 - lap 04/30/1993 MASTECTOMY 03/16/2018 Breast/Right RIGHT TOTAL MAS TECTOMY performed by Escobar Galeana DO [facility] LYMPH NODE BIOPSY 03/16/2018 Axilla/Right SENTINEL LYM PH NODE BIOPSY performed by Escobar Galeana DO at [facility] Medical History Medical History Date Comments History of breast cancer 1981 left Cardiomyopathy Lobular carcinoma in situ of breast 11/17/08 ri ght Nonischemic cardiomyopathy (HCC) 11/26/2009 Respiratory complication 11/26/2009 Migraine headache 11/26/2009 Atypical ductal hyperplasia of breast 10/2008 Cardiomyopathy (HCC) Dr. Woodward in [place], [place] Hypertension Hyperlipidemia 11/26/2009 patient denies Family History Medical History Relation Name Comments Cancer Maternal breast Grandmother Cancer Mother breast Thyroid Disease Mother Cancer-Thyroid Neg Hx Relation Name Status Comments Maternal Grandmother Mother Social History Date Tobacco Use Types Packs/Day Years Used Quit: 05/01/1974 Smoking Tobacco: Former Cigarettes 0.3 2 Smokeless Tobacco: Never Tobacco Cessation: Counseling Given: Not Answered Comments Alcohol Use Standard Drinks/Week No 0 (1 standard drink = 0.6 o z pure alcohol) Sex Assigned at Date Recorded Female 11/18/2019 3:05 PM CDT Date Recorded COVID-19 Exposure Response 04/27/2022 12:53 PM AWNING ERECTOR In the last 10 days, have you been in contact with N o / Unsure someone who was confirmed or suspected to have Coronavirus/COVID-19? Obstetrics History Para Term AB IAB SAB Ectopic Multiple Living Live B irths 1 1 1 1 1 Date GA Total Labor Labor/2nd/3rd Weight Sex Delivery Anes PTL Gaby A1 A5 Name Clin Outcome Spontaneous Term Last Filed Vital Signs Reading Time Taken Comments Vital Sign 100/67 04/27/2022 3:16 PM AWNING ERECTOR Blood Pressure 108 04/27/2022 3:16 PM AWNING ERECTOR Pulse 36.8 C (98.2 F) 04/27/2022 3:16 PM AWNING ERECTOR Temperature 16 04/27/2022 3:16 PM AWNING ERECTOR Respiratory Rate 98% 04/27/2022 3:16 PM AWNING ERECTOR Oxygen Saturation - - Inhaled Oxygen Concentration 108.7 kg (239 lb 9.6 oz) 04/27/2022 3:20 PM AWNING ERECTOR Weight 172.5 cm (5' 7.91") 04/27/2022 3:20 PM AWNING ERECTOR Height 36.52 04/27/2022 3:20 PM AWNING ERECTOR Body Mass Index Plan of Treatment Health Maintenance Due Date Last Done Comments MEDICARE ANNUAL WELLNESS 1950 VISIT DTAP/TDAP VACCINES (1 - 1970 Tdap) HEPATITIS C SCREENING 1970 PHYSICAL (COMPREHENSIVE) 1970 EXAM COLORECTAL CANCER 1997 SCREENING SHINGLES RECOMBINANT 2002 VACCINE (1 of 2) PNEUMOCOCCAL VACCINE (1 - 2017 PCV) BREAST CANCER SCREENING 01/08/2019 01/08/2018, 12/20/2016, 07/23/2015, Additional history exists COVID-19 VACCINE (4 - 07/19/2021 05/24/2021, Booster for Moderna 07/31/2020, series) 07/03/2020 INFLUENZA VACCINE (#1) 2021 02/03/2020 ADVANCED CARE PLANNING 05/01/2022 DISCUSSION AND DOCUMENTATION DEPRESSION SCREENING 05/01/2022 07/15/2021 OSTEOPOROSIS Completed 04/27/2022, SCREENING/MONITORING 08/30/2018, 12/22/2015, Additional history exists Medical Devices Device Identifier Shelf Expiration Date Model / Serial / L ot Implanted Type Area Manufactur er [id number] 08/15/2021 [id number] / PHYLLIS / [id number] Trumark Marker - Stumark Clip Right: Breast APPLE TON Implanted: Qty: 1 on 02/23/2018 by MED SRSoumya Medina MD at [place] [id number] 06/14/2020 [id number]-T1 / NA / [id number] Marker Breast Biopsy Sono Hydromark Right: Breast D EVICORE Barrel - Sna MEDICAL Implanted: Qty: 1 on 02/06/2018 by PRODUCT Donell Herrera MD at [facility] Procedures Comments Procedure Name Priority Date/Time Associated Diag nosis BONE DENSITY SPINE/HIP Routine 04/27/2022 Maligna nt neoplasm of 1:51 PM AWNING ERECTOR upper-outer quadrant of right breast in female, estrogen receptor positive (HCC) Aromatase inhibitor use HC COMPREHENSIVE Routine 04/27/2022 Malignant juliana plasm of METABOLIC PANEL 1:08 PM AWNING ERECTOR upper-outer quadran t of right breast in female, estrogen receptor positive (HCC) HC CBC W/ AUTOMATED DIFF Routine 04/27/2022 Calos wade neoplasm of 1:08 PM AWNING ERECTOR upper-outer quadrant of right breast in female, estrogen receptor positive (HCC) from Last 3 Months Results * BONE DENSITY SPINE/HIP (04/27/2022 1:51 PM AWNING ERECTOR) Modality Anatomical Region Laterality Nuclear Medicine SPINE/LOWEXT Anatomical Location / Laterality Collection Method / Volume Jovita ection Time Received Time Specimen (Source) 04/27/2022 2:34 PM AWNING ERECTOR Impressions 04/27/2022 2:36 PM AWNING ERECTOR Interval decrease in bone mineral density of [...] 04/27/2022 2:34 PM. Narrative 04/27/2022 2:36 PM AWNING ERECTOR BONE DENSITOMETRY CLINICAL INDICATION: 71 years old Female, malignant neoplasm of upper outer quadrant of right breast in female, estrogen receptor positive. Aromatase inhibitor use. COMPARISON: 08/30/2018 FINDINGS: DEXA scan of the lumbar spine and bilateral hips were performed with [employer]. FRAX score was calculated from patient reported [...] spine and bilateral hips were performed with [employer]. FRAX score was calculated from patient reported [...] 2:34 PM. Jorge Saucedo MD DEXA ORDERABLES * (ABNORMAL) CBC AND DIFF (04/27/2022 1:08 PM AWNING ERECTOR) Pathologist Signature Component Value Ref Test Method Analysis Performed A t Range Time White Blood Cells 8.5 4.5 - 04/27/2022 [facility] 11.0 1:20 PM MAISHA Warren/ AWNING ERECTOR RBC 4.32 4.0 - 04/27/2022 [facility] 5.0 M/UL 1:20 PM [place] AWNING ERECTOR Hemoglobin 12.0 12.0 - 04/27/2022 [facility] 15.0 1:20 PM [place] GM/DL AWNING ERECTOR Hematocrit 36.6 36 - 45 04/27/2022 [facility] C ENTER % 1:20 PM [place] AWNING ERECTOR MCV 84.7 80 - 100 04/27/2022 [facility] FL 1:20 PM [place] AWNING ERECTOR MCH 27.8 26 - 34 04/27/2022 [facility] ENTER PG 1:20 PM [place] AWNING ERECTOR MCHC 32.8 32.0 - 04/27/2022 [facility] 36.0 1:20 PM [place] G/DL AWNING ERECTOR RDW 20.7 (H) 11 - 15 04/27/2022 [facility] EN[facility] % 1:20 PM [place] AWNING ERECTOR Platelet Count 184 150 - 04/27/2022 [facility] CENTER 400 K/UL 1:20 PM [place] AWNING ERECTOR MPV 8.3 7 - 11 04/27/2022 [facility] FL 1:20 PM [place] AWNING ERECTOR Neutrophils 75 41 - 77 04/27/2022 [facility] EN[facility] % 1:20 PM [place] AWNING ERECTOR Lymphocytes 13 (L) 24 - 44 04/27/2022 [facility] EN[facility] % 1:20 PM [place] AWNING ERECTOR Monocytes 11 4 - 12 % 04/27/2022 [facility] ENTER 1:20 PM [place] AWNING ERECTOR Eosinophils 1 0 - 5 % 04/27/2022 [facility] ENTER 1:20 PM [place] AWNING ERECTOR Basophils 0 0 - 2 % 04/27/2022 [facility] ENTER 1:20 PM [place] AWNING ERECTOR Absolute Neutrophil 6.40 1.8 - 04/27/2022 [facility] CENTER Count 7.0 K/UL 1:20 PM [place] AWNING ERECTOR Absolute Lymph Count 1.10 1.0 - 04/27/2022 [facility] CENTER 4.8 K/UL 1:20 PM [place] AWNING ERECTOR Absolute Monocyte 0.90 (H) 0 - 0.80 04/27/2022 [facility] Count K/UL 1:20 PM [place] AWNING ERECTOR Absolute Eosinophil 0.10 0 - 0.45 04/27/2022 [facility] CENTER Count K/UL 1:20 PM [place] AWNING ERECTOR Absolute Basophil 0.00 0 - 0.20 04/27/2022 [facility] Count K/UL 1:20 PM [place] AWNING ERECTOR Anatomical Location / Laterality Collection Method / Volume Jovita ection Time Received Time Specimen (Source) 04/27/2022 1:08 PM AWNING ERECTOR 04/27/20 1:11 PM AWNING ERECTOR Jorge Saucedo MD LABORATORY ORDERABLES City/State/ZIP Code Phone Number Performing [place] [address] [facility] [address] * (ABNORMAL) COMPREHENSIVE METABOLIC PANEL (04/27/2022 1:08 PM AWNING ERECTOR) Pathologist Signature Component Value Ref Test Method Analysis Performed A t Range Time Sodium 143 137 - 04/27/2022 [facility] DEPT PAT H AND 147 1:42 PM LAB MEDICINE MMOL/L AWNING ERECTOR Potassium 4.4 3.5 - 04/27/2022 [facility] PAT H AND 5.1 1:42 PM LAB MEDICINE MMOL/L AWNING ERECTOR Chloride 107 98 - 110 04/27/2022 [facility] DEPT PAT H AND MMOL/L 1:42 PM LAB MEDICINE AWNING ERECTOR Glucose 123 (H) 70 - 100 04/27/2022 [facility] PAT H AND MG/DL 1:42 PM LAB MEDICINE AWNING ERECTOR Blood Urea Nitrogen 20 7 - 25 04/27/2022 [facility] DEPT PATH AND MG/DL 1:42 PM LAB MEDICINE AWNING ERECTOR Creatinine 1.42 (H) 0.4 - 04/27/2022 [facility] DEPT PAT H AND 1.00 1:42 PM LAB MEDICINE MG/DL AWNING ERECTOR Calcium 10.4 8.5 - 04/27/2022 [facility] PAT H AND 10.6 1:42 PM LAB MEDICINE MG/DL AWNING ERECTOR Total Protein 6.7 6.0 - 04/27/2022 [facility] DEPT P ATH AND 8.0 G/DL 1:42 PM LAB MEDICINE AWNING ERECTOR Total Bilirubin 2.0 (H) 0.3 - 04/27/2022 [facility] DEPT PATH AND 1.2 1:42 PM LAB MEDICINE MG/DL AWNING ERECTOR Albumin 3.8 3.5 - 04/27/2022 [facility] DEPT PAT H AND 5.0 G/DL 1:42 PM LAB MEDICINE AWNING ERECTOR Alk Phosphatase 71 25 - 110 04/27/2022 [facility] DEPT PATH AND U/L 1:42 PM LAB MEDICINE AWNING ERECTOR AST (SGOT) 10 7 - 40 04/27/2022 [facility] DEPT PAT H AND U/L 1:42 PM LAB MEDICINE AWNING ERECTOR CO2 26 21 - 30 04/27/2022 [facility] DEPT PAT H AND MMOL/L 1:42 PM LAB MEDICINE AWNING ERECTOR ALT (SGPT) 8 7 - 56 04/27/2022 [facility] DEPT PAT H AND U/L 1:42 PM LAB MEDICINE AWNING ERECTOR Anion Gap 10 3 - 12 04/27/2022 [facility] DEPT PAT H AND 1:42 PM LAB MEDICINE AWNING ERECTOR eGFR 40 (L) >60 04/27/2022 [facility] DEPT PAT H AND mL/min 1:42 PM LAB MEDICINE AWNING ERECTOR Comment: eGFR calculated using the CKD-EPIcr_R equation Anatomical Location / Laterality Collection Method / Volume Jovita ection Time Received Time Specimen (Source) 04/27/2022 1:08 PM AWNING ERECTOR 04/27/20 1:11 PM AWNING ERECTOR Jorge Saucedo MD LABORATORY ORDERABLES City/State/ZIP Code Phone Number Performing [place] [address] [facility] DEPT PATH AND [address] LAB MEDICINE from Last 3 Months Insurance Type Payer Benefit Subscriber ID Effective Phone Address Plan / Dates Group Medicare MEDICARE MEDICARE [id number] 2017-P [phone] [address] [place] [address] Medicare BCBS [employer] BCBS [id number] 2020-P [phone] [id number] [place] [id number] Advance Directives Date Inactivated Comments Code Status Date Activated 03/17/2018 3:00 PM Full Code 03/16/2018 4:02 PM Provider has discussed Code Status No, more discussi on w/Patient or Family? needed Care Teams Start Date End Date Supply Chain Analyst Relationship Specialty 12/01/09 Jg Kirk MD PCP - General [facility] [facility] [address] [place] [address] 03/01/10 Mireya Waggoner, NUTRITION TECHNICIAN [facility] [place] [address] 10/15/10 Aurora Oleary, ROSCOE FWD ADDR UNKNOWN 05/25/11 Deysi Johnson MD [facility] [address] [address] 12/16/13 Yeni Willis, PA-C Physician [address] [facility] [place] [address] 12/25/13 Michelle Martinez, RN 12/08/14 Jeanie Almonte, NUTRITION TECHNICIAN Gynecology [address] [facility] [place] [address]
--- OUTSIDE RECORDS SUMMARY | 2022-05-24 09:22 | XMS REPORT | Encounter Summary ---
Author Author [facility] Organization [facility] Address Unknown Phone Unavailable Care Team Providers Care Snuff Drier Name Role Phone Jg Kirk MD PCP Mireya Waggoner BLASTING CAP ASSEMBLER Unavailable Aurora Oleary BLASTING CAP ASSEMBLER Unavailable Unavailable Deysi Johnson MD Unavailable Yeni Willis-C Unavailable Michelle Martinez RN Unavailable Unavailable Jeanie Almonte BLASTING CAP ASSEMBLER Unavailable Reason for Visit * Reason Onset Date Comments Care Coordination 04/29/2022 Bone density and la b results Encounter Details Care Team Description Date Type [place] [address] [address] Care Coordination (Bone density and lab results) 04/29/2022 Telephone Oncology: Cancer [facility] [address] [address] Social History Date Tobacco Use Types Packs/Day Years Used Quit: 05/01/1974 Smoking Tobacco: Former Cigarettes 0.3 2 Smokeless Tobacco: Never Comments Alcohol Use Standard Drinks/Week No 0 (1 standard drink = 0.6 o z pure alcohol) Sex Assigned at Date Recorded Female 11/18/2019 3:05 PM CDT Date Recorded COVID-19 Exposure Response 04/27/2022 12:53 PM WIRE WEAVER CLOTH In the last 10 days, have you [...] impairment: No documented as of this encounter Miscellaneous Notes * Telephone Encounter - Whitley Helton RN - 04/29/2022 12:35 PM CST Attempted to leave VM with patient regarding her bone density and lab results. M ailbox unable to accept full message. WEAVER CLOTH documented in this encounter Plan of Treatment Not on filedocumented as of this encounter Visit Diagnoses Not on filedocumented in this encounter Additional Health Concerns Noted Time Assessment 07/15/2021 1:15 PM CDT PHQ-2 Depression Total Score: 0 documented as of this encounter Care Teams Start Date End Date Snuff Drier Relationship Specialty 12/01/09 Jg Kirk MD PCP - General [address] [place] [address] [id number] 03/01/10 Mireya Waggoner APRN [address] [place] [address] 10/15/10 Aurora Oleary APRN FWD ADDR UNKNOWN 05/25/11 Deysi Johnson MD Plastic [address] [facility] Surgery [address] [place] [address] 12/16/13 Yeni Willis PA-C Physician [address] [place] [address] 12/25/13 Michelle Martinez, RN 12/08/14 Jeanie Almonte, BLASTING CAP ASSEMBLER Gynecology [address] [place] [address] documented as of this encounter
--- OUTSIDE RECORDS SUMMARY | 2022-05-24 09:22 | XMS REPORT | Encounter Summary ---
Author Author [facility] Organization [facility] Address Unknown Phone Unavailable Care Team Providers Care Wallpaper Remover Steam Name Role Phone Jg Kirk MD PCP Mireya Waggoner VENEER PRESS OPERATOR Unavailable Aurora Oleary VENEER PRESS OPERATOR Unavailable Unavailable Deysi Johnson MD Unavailable Yeni Willis-C Unavailable Michelle Martinez RN Unavailable Unavailable Jeanie Almonte VENEER PRESS OPERATOR Unavailable Reason for Visit * Reason Comments Follow Up Encounter Details Care Team Description Date Type Department Mariaa Ferguson, ROSCOE-ENVIRONMENTAL COMPLIANCE OFFICER 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 [place] [address] [phone] Social History Date Tobacco Use Types Packs/Day Years Used Quit: 05/01/1974 Smoking Tobacco: Former Cigarettes 0.3 2 Smokeless Tobacco: Never Tobacco Cessation: Counseling Given: Not Answered Comments Alcohol Use Standard Drinks/Week No 0 (1 standard drink = 0.6 o z pure alcohol) Sex Assigned at Date Recorded Female 11/18/2019 3:05 PM CDT Date Recorded COVID-19 Exposure Response 04/27/2022 12:53 PM DIRECTOR OF ANNUAL GIVING In the last 10 days, have you been in contact with N o / Unsure someone who was confirmed or suspected to have Coronavirus/COVID-19? documented as of this encounter Last Filed Vital Signs Reading Time Taken Comments Vital Sign 100/67 04/27/2022 3:16 PM DIRECTOR OF ANNUAL GIVING Blood Pressure 108 04/27/2022 3:16 PM DIRECTOR OF ANNUAL GIVING Pulse 36.8 C (98.2 F) 04/27/2022 3:16 PM DIRECTOR OF ANNUAL GIVING Temperature 16 04/27/2022 3:16 PM DIRECTOR OF ANNUAL GIVING Respiratory Rate 98% 04/27/2022 3:16 PM DIRECTOR OF ANNUAL GIVING Oxygen Saturation - - Inhaled Oxygen Concentration 108.7 kg (239 lb 9.6 oz) 04/27/2022 3:20 PM DIRECTOR OF ANNUAL GIVING Weight 172.5 cm (5' 7.91") 04/27/2022 3:20 PM DIRECTOR OF ANNUAL GIVING Height 36.52 04/27/2022 3:20 PM DIRECTOR OF ANNUAL GIVING Body Mass Index documented in this encounter Functional Status Date of Assessment [...] impairment: No documented as of this encounter Progress Notes * Esthela Hastings, ROSCOE-ENVIRONMENTAL COMPLIANCE OFFICER - 04/27/2022 3:30 PM CST Images from the original note were not included. Name: Sandra Richter : 1950 AGE: 71 y.o . DATE OF SERVICE: 04/27/2022 Subjective: Reason for Visit: Follow Up Sandra Richter is a 71 y.o. female. Cancer Staging Malignant neoplasm of upper-outer quadrant of right breast in female, estrogen r eceptor positive (HCC) Staging form: Breast, AJCC 8th Edition - Clinical stage from 02/06/2018: Stage IB (cT2(2), cN0(f), cM0, G2, ER: Positive , [place]: Positive, HER2: Negative) - Signed by Kathya Castañeda PA-C on 02/27/2018 - Pathologic stage from 03/30/2018: Stage IIA (pT2, pN0(sn), cM0, G3, ER: Positi ve, [place]: Negative, HER2: Positive) - Signed by Jorge Saucedo MD on 04/03/2018 History of Present Illness Sandra is here today in FU of her history of breast cancers. She has a history of left breast cancer diagnosed when she was 30 in 1980. At that time she was treated with a lumpectomy, radiation and chemotherapy. Per h er reports it sounds like it was CMF. 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 Excisional biopsy performed in September 2008 showed no further cancer and she was placed on obs ervation. -On 01/08/2018 she underwent a screening bilateral mammogram that showed stable p ost therapeutic changes in the left breast. In the right breast that showed a spiculated mass in the upper outer right breast at mid to posterior depth with f aint associated calcifications. There is an additional 6 mm focal asymmetry wi th associated calcifications and possible architectural distortion in the upper outer right breast at middle depth, approximately 4 cm to the dominant spiculate d mass. Additionally, there are loosely grouped calcifications within the inne r right breast at posterior depth. -Right diagnostic mammogram on 01/31/2018 showed an irregular hypoechoic mass in the right breast at the 930 position 5 cm from the nipple measuring 2.3 x 1 x 2. 7 cm. In the 9 o'clock position 3 cm from the nipple there is an irregular hyp oechoic mass measuring 1.5 x 0.3 x 1.3 cm. Additional irregular hypoechoic mas s in the right breast at the 1230 position 5 cm from the nipple measured 2.0 x 0 .8 x 2.1 cm. 2 right axillary lymph nodes with cortical thickening measuring 0 .3 cm. There are a few additional normal-appearing right axillary lymph nodes. -On 02/06/2018 she underwent biopsy of the right breast in the 930 position 5 cm from the nipple that showed invasive ductal carcinoma, histologic grade 2 ER 99% , NY 50%, HER-2/viky negative with a Ki-67 of 14%.Biopsy of the right breast in the 1230 position 5 cm from the nipple showed focal usual ductal hyperplasia, , cell change and stromal fibrosis. Biopsy of the right axilla was negative fo r carcinoma. -MRI 02/23/18 1.4cm breast cancer at 9:30, 2.5cm mass posterior at 10:00 suspici ous for 2nd mass, 6.5 cm nonmass enhancement -Biopsy Right Breast 02/23/18 9:00 LCIS, Biopsy 10:00 mass IDC ER 1% NY 0 HER2 3 + -Right Mastectomy by Dr. Galeana 03/16/18. Pathology revealed a 2.8cm grade 3 I DC ER 5% [place] 0, Her2 positive with Ki67 90%. 0/2 lymph nodes -Taxotere/Carboplatin started 04/16/18 No herceptin secondary to decreased EF wi th 20% dose reductioncycle 6 was 07/30/18 07/09/2018 ultrasound right lower extremity showed DVT and was started on Xarelto then transitioned to aspirin Letrozole started 08/30/18; Zometa started 09/27/18-08/2021 (pt wanted to hold) Interim hx: Cardiac defibrillator placed since last visit, L side. No new masses or pain. Tolerates letrozole with minimal, manageable AEs. Stopped oral iron due to constipation. Review of Systems Constitutional: Positive for fatigue. Respiratory: Positive for shortness of breath (with exertion). Cardiovascular: Positive for palpitations (a-flutter). Negative for chest pain a nd leg swelling. Gastrointestinal: Negative. Genitourinary: Negative. Musculoskeletal: Positive for arthralgias (generalized). Neurological: Positive for light-headedness. Hematological: Negative. Negative for adenopathy. Psychiatric/Behavioral: Negative. Objective: acetaminophen (TYLENOL) 500 mg tablet Take 1000 mg by mouth scheduled every 6 hours for the first 3 days following surgery followed by 1000 mg every 6 hours as needed for pain after post-operative day #3. Max of 4,000 mg of acetaminophen in 24 hours - do not exceed. aspirin EC 81 mg tablet Take 81 mg by mouth daily. Take with food. carvedilol (COREG PO) Take 25 mg by mouth twice daily. ELIQUIS 5 mg tablet Take 5 mg by mouth twice daily. ENTRESTO 49-51 mg tablet Take 1 tablet by mouth twice daily. letrozole (FEMARA) 2.5 mg tablet Take one tablet by mouth daily. venlafaxine XR (EFFEXOR XR) 150 mg capsule Take 150 mg by mouth daily. zolpidem 1.[address] under tongue. Vitals: 04/27/22 1516 04/27/22 1520 04/27/22 1521 BP: 100/67 BP Source: Arm, Right Upper Arm, Right Upper Pulse: 108 Temp: 36.8 C (98.2 F) Resp: 16 SpO2: 98% O2 Device: None (Room air) TempSrc: Oral Oral PainSc: Zero Zero Weight: 108.7 kg (239 lb 9.6 oz) 108.7 kg (239 lb 9.6 oz) Height: 172.2 cm (5' 7.8") 172.5 cm (5' 7.91") Body mass index is 36.52 kg/m. Pain Score: Zero Fatigue Scale: 7 Pain Addressed: N/A Patient Evaluated for a Clinical Trial: No treatment clinical trial available fo r this patient. Eastern Cooperative Oncology Group performance status is 0, Fully active, able t o carry on all pre-disease performance without restriction.. Physical Exam Vitals reviewed. Constitutional: Appearance: Normal appearance. HENT: Head: Normocephalic. Eyes: Extraocular Movements: Extraocular movements intact. Cardiovascular: Rate and Rhythm: Normal rate. Pulmonary: Effort: Pulmonary effort is normal. Breath sounds: Normal breath sounds. Chest: Chest wall: Deformity (R breast ) present. Breasts: Breasts are asymmetrical. Right: Absent. No mass, skin change or tenderness. Left: Skin change present. No mass or tenderness. Musculoskeletal: General: Normal range of motion. Cervical back: Normal range of motion. Lymphadenopathy: Cervical: No cervical adenopathy. Upper Body: Right upper body: No supraclavicular or axillary adenopathy. Left upper body: No supraclavicular or axillary adenopathy. Skin: General: Skin is warm and dry. Neurological: General: No focal deficit present. Mental Status: She is alert and oriented to person, place, and time. Psychiatric: Mood and Affect: Mood normal. Behavior: Behavior normal. Thought Content: Thought content normal. Results for orders placed or performed in visit on 04/27/22 (from the past 336 h our(s)) CBC AND DIFF Result Value Ref Range White Blood Cells 8.5 4.5 - 11.0 K/UL RBC 4.32 4.0 - 5.0 M/UL Hemoglobin 12.0 12.0 - 15.0 GM/DL Hematocrit 36.6 36 - 45 % MCV 84.7 80 - 100 FL MCH 27.8 26 - 34 PG MCHC 32.8 32.0 - 36.0 G/DL RDW 20.7 (H) 11 - 15 % Platelet Count 184 150 - 400 K/UL MPV 8.3 7 - 11 FL Neutrophils 75 41 - 77 % Lymphocytes 13 (L) 24 - 44 % Monocytes 11 4 - 12 % Eosinophils 1 0 - 5 % Basophils 0 0 - 2 % Absolute Neutrophil Count 6.40 1.8 - 7.0 K/UL Absolute Lymph Count 1.10 1.0 - 4.8 K/UL Absolute Monocyte Count 0.90 (H) 0 - 0.80 K/UL Absolute Eosinophil Count 0.10 0 - 0.45 K/UL Absolute Basophil Count 0.00 0 - 0.20 K/UL COMPREHENSIVE METABOLIC PANEL Result Value Ref Range Sodium 143 137 - 147 MMOL/L Potassium 4.4 3.5 - 5.1 MMOL/L Chloride 107 98 - 110 MMOL/L Glucose 123 (H) 70 - 100 MG/DL Blood Urea Nitrogen 20 7 - 25 MG/DL Creatinine 1.42 (H) 0.4 - 1.00 MG/DL Calcium 10.4 8.5 - 10.6 MG/DL Total Protein 6.7 6.0 - 8.0 G/DL Total Bilirubin 2.0 (H) 0.3 - 1.2 MG/DL Albumin 3.8 3.5 - 5.0 G/DL Alk Phosphatase 71 25 - 110 U/L AST (SGOT) 10 7 - 40 U/L CO2 26 21 - 30 MMOL/L ALT (SGPT) 8 7 - 56 U/L Anion Gap 10 3 - 12 eGFR 40 (L) >60 mL/min 04/27/22 BMD: IMPRESSION Interval decrease in bone mineral density of left total hip with statistically stable bone mineral density of the lumbar spine and right hip. Persistent low bone mass (osteopenia). Assessment and Plan: Hx breast cancer. Pt tolerates letrozole w/ minimal, manageable AEs. She will continue to complete at least 5 years of therapy. She started 08/2018. Pt has e xtensive L breast scar tissue and cannot undergo mammogram, so we have been gett ing annual MRI. She has recently had a cardiac defibrillator placed that I assu me is metal. She will check with her cardiology tomorrow to confirm. If so, we will need to cancel MRI and/or change to US instead. FU with Dr. Saucedo in 6 mos w/ lab. Osteopenia. BMD today showed stable density in lumbar spine and R hip but slight ly decreased denisty L hip. She declines further Zometa (last 08/2021). She nicolette es oral Ca+D daily. Elevated serum creat. 1.42. This is quite high for her. She is on fluid restr iction for CHF and has been instructed to take Lasix 3x/week. I will forward avtar ceron to her PCP for review and instruction. CTOR OF ANNUAL GIVING documented in this encounter Plan of Treatment Not on filedocumented as of this encounter Visit Diagnoses Diagnosis Malignant neoplasm of upper-outer quadr ant of right breast in female, estrogen receptor positive (HCC) - Primary Dense breast tissue Aromatase inhibitor use Use of aromatase inhibitors Osteopenia of right hip documented in this encounter Additional Health Concerns Noted Time Assessment 07/15/2021 1:15 PM CDT PHQ-2 Depression Total Score: 0 documented as of this encounter Care Teams Start Date End Date Wallpaper Remover Steam Relationship Specialty 12/01/09 Jg Kirk MD PCP - General [facility] [address] 03/01/10 Mireya Waggoner APRN [address] [place] [address] 10/15/10 Aurora Oleary APRN FWLenin ADDR UNKNOWN 05/25/11 Deysi Johnson MD Plastic [address] [facility] Surgery [address] [place] [address] 12/16/13 Yeni Willis PA-C Physician [address] [facility] [place], [place] [id number] 12/25/13 Michelle Martinez, RN 12/08/14 Jeanie Almonte, VENEER PRESS OPERATOR Gynecology [address] [facility] [place], [place] [phone] documented as of this encounter
--- OUTSIDE RECORDS SUMMARY | 2022-05-24 09:22 | XMS REPORT | Encounter Summary ---
Author Author [facility] Organization [facility] Address Unknown Phone Unavailable Care Team Providers Care Leak Detection Engineer Name Role Phone Jg Kirk MD PCP Mireya Waggoner OFFICE WORKER Unavailable Aurora Oleary OFFICE WORKER Unavailable Unavailable Deysi Johnson MD Unavailable Yeni Willis-C Unavailable Michelle Martinez RN Unavailable Unavailable Jeanie Almonte OFFICE WORKER Unavailable Reason for Visit * Reason Onset Date Comments Care Coordination 05/04/2022 Lab and bone densit y results Encounter Details Care Team Description [place] [address] [place] [address] Care Coordination (Lab and bone density results) 05/04/2022 Telephone Oncology: Cancer Ce [facility] [address], [place] [address] Social History Date Tobacco Use Types Packs/Day Years Used Quit: 05/01/1974 Smoking Tobacco: Former Cigarettes 0.3 2 Smokeless Tobacco: Never Comments Alcohol Use Standard Drinks/Week No 0 (1 standard drink = 0.6 o z pure alcohol) Sex Assigned at Date Recorded Female 11/18/2019 3:05 PM CDT Date Recorded COVID-19 Exposure Response 04/27/2022 12:53 PM TOOL ENGINEER In the last 10 days, have you [...] Telephone Encounter - Whitley Helton RN - 05/04/2022 9:55 AM CST Left a VM with patient going over her recent CMP and bone density results. I lef t my direct line to call back if necessary. ENGINEER documented in this encounter Plan of Treatment Not on filedocumented as of this encounter Visit Diagnoses Not on filedocumented in this encounter Additional Health Concerns Noted Time Assessment 07/15/2021 1:15 PM CDT PHQ-2 Depression Total Score: 0 documented as of this encounter Care Teams Start Date End Date Leak Detection Engineer Relationship Specialty 12/01/09 Jg Kirk MD PCP - General [address] [place] [address] 03/01/10 Mireya Waggoner APRN [address] [place] [address] 10/15/10 Aurora Oleary APRN FWD ADDR UNKNOWN 05/25/11 Deysi Johnson MD Plastic [address] [facility] [address] [place] [address] 12/16/13 Yeni Willis PA-C Physician [address] [place] [address] 12/25/13 Michelle Martinez, RN 12/08/14 Jeanie Almonte, OFFICE WORKER Gynecology [address] [facility] [place] [address] documented as of this encounter
--- OUTSIDE RECORDS SUMMARY | 2022-05-24 09:22 | XMS REPORT | Encounter Summary ---
Author Author [facility] Organization [facility] Address Unknown Phone Unavailable Care Team Providers Care Nuclear Engineer Name Role Phone Jg Kirk MD PCP Mireya Waggoner WATER REUSE PROGRAM MANAGER Unavailable Aurora Oleary WATER REUSE PROGRAM MANAGER Unavailable Unavailable Deysi Johnson MD Unavailable Yeni WillisC Unavailable Michelle Martinez RN Unavailable Unavailable Jeanie Almonte WATER REUSE PROGRAM MANAGER Unavailable Encounter Details Care Team Description Date Type Department 04/27/2022 Travel Social History Date Tobacco Use Types Packs/Day Years Used Quit: 05/01/1974 Smoking Tobacco: Former Cigarettes 0.3 2 Smokeless Tobacco: Never Comments Alcohol Use Standard Drinks/Week No 0 (1 standard drink = 0.6 o z pure alcohol) Sex Assigned at Date Recorded Female 11/18/2019 3:05 PM CDT Date Recorded COVID-19 Exposure Response 04/27/2022 12:53 PM MEAL MILLER In the last 10 days, have you [...] impairment: No documented as of this encounter Plan of Treatment Not on filedocumented as of this encounter Visit Diagnoses Not on filedocumented in this encounter Additional Health Concerns Noted Time Assessment 07/15/2021 1:15 PM CDT PHQ-2 Depression Total Score: 0 documented as of this encounter Care Teams Start Date End Date Nuclear Engineer Relationship Specialty 12/01/09 Jg Kirk MD PCP - General [facility] [address] [address] 03/01/10 Mireya Waggoner, WATER REUSE PROGRAM MANAGER [address] [place] [address] 10/15/10 Aurora Oleary APRN FWD ADDR UNKNOWN 05/25/11 Deysi Johnson MD [facility] [address] [facility] [address] [place] [phone] 12/16/13 Yeni Willis, PA-C Physician [address] [place], [place] [phone] 12/25/13 Michelle Martinez, RN 12/08/14 Jeanie Almonte, WATER REUSE PROGRAM MANAGER Gynecology [address] [place], [place] [phone] documented as of this encounter
--- NOTE | 2022-05-24 09:37 | PM&R Post Admission Assessment ---
PM&R HP Date of Visit: May 24, 2022 Time of Visit: 11:00 History of Present Illness CC: Cardiogenic shock debility Hospital Course: Sandra Richter is a 71 year old female with past medical history of breast cancer, paroxysmal A. fib/flutter on Eliquis, HFrEF, and HLD who was admitted to the hospital from 05/17/22 - 05/24/22. She presented with 1 day of nonbloody nonbilious vomiting and generalized weakness and was having heart palpitations at that time. She was found to be in Atrial fibrillation with RVR as well as septic vs. cardiogenic shock which required pressors until 05/22. Her hospital course was complicated by ischemic hepatitis, LUIS secondary to acute tubular necorosis, E. Coli UTI, and chronic HFrEF. [place] [address] and 4623 respectively, but had improved to 64 and 671 respectively, by time of discharge. Her Creatinine reached as high as 3.59 but had improved to 3.03 by time of discharge and patient was having normal urine production. Patient will need close follow up in rehab and with PCP to ensure liver and kidney function continue to im prove. She received 6 days of ceftriaxone 2g IV Q24hr for her UTI and had a gomes catheter in place at time of discharge to rehab. An echo on 05/17/22 revealed patient had an EF of 20-25% and patient was followed by cardiology team and treated intermittently with IV lasix. Treatment options for patients HFrEF were limited due to liver/kidney function. During her stay she was found to have elevated calcium with an elevated PTH and normal 24 hr urine calcium indicating likely primary hyperparathyroidism. Patient was very sick upon arrival but at time of discharge has converted to regular sinus rhythm with marked improvement in lab values and hemodynamically stable without pressors. She is being discharged to in-patient rehabilitation unit where she c an work with PT/OT to regain her strength and be monitored closely prior to discharge home. PMH: CHF, R arthritic knee MSH: L lumpectomy, R mastectomy, cholecystectomy Social: Denies tobacco product use, EtOH, and recreational drugs. . Lives in [place]. Close support with sister. OBJ: T 36.1 BP 145/67. HR 72. RR 17. 98% O2 ORA PE General: tired lying supine on bed, pleasantly conversational. HEET: Atruamatic, normocephalic, PERRL Neck: Right IJ line present without erythema Cardio: systolic decrescendo murmur appreciated Resp: CTAB. Equal chest rise and fall, no increased work of breathing. Extremeties: Legs and hands swollen. Assessment/Plan Sandra Richter is a 71 year old woman with PMH of breast cancer, PAF/F and UTI, recovering from shock secondary to cardiac and infective etiologies. She is physically debilitated and would benefit from acute rehab. Cardiogenic shock - continue to monitor liver, kidney function - in normal sinus rhythm, continue carvedilol - Still retaining fluid, judicious lasix use - Compression stockings UTI (resolving) - chun S E.coli isolated - s/p x7 days 2g ceftraxone - WBC WNL - Gomes in, urine sonali colored - Trial gomes removal [facility] HFrEF - 05/17 echo with LVEF of 20-25%, global hypokinesis - Will need cardiology follow-up outpatient for medication optimization ATN (resolving) - secondary to shock - urine output adequate - BUN Cr still elevated, but trending down - continue to monitor. LUIS - secondary to shock - urine output adequate - BUN Cr still elevated, but trending down - continue to monitor. Shock liver - ALT/AST, Bili, drastic improvement, continuing to trend down - Monitor while in acute rehab Hx breast cancer - s/p mastectomy and lumpectomy - continue letrozole Unconjugated hyperbilirubinemia - Possible Gilbert's, although higher levels than classic - Monitor outpatient Elevated troponin - Likely due to shock vs Type 2 AL with HFrEF - Follow with cardiology outpatient Hypercalcemia -Patient maintained mild hypercalcemia dring her stay and was found to have elevated PTH with normal urine calcium. -Probable primary hyperparathyroidism. No indication for treatment at this time but should be followed up by PCP. Splenic cyst - incendental finding on 05/18 CT with recommendation for 3 month MRI follow up. Septic shock (resolved) - continue to monitor liver, kidney function - no longer needs pressors - monitor vitals - Lactic acidosis resolved APOLINAR DURHAM I May 24, 2022 11:08 <Created by APOLINAR DURHAM > Past Kfiqwfh-[id number]-Mgbafw Hx Past Med/Social Hx: Reviewed Nursing Past Med/Soc Hx, Reviewed and Corrections made Patient Social History Marrital Status: single Employed/Student: retired Alcohol Use: Denies Use Smoking Status: Never a Smoker Recent Hopitalizations: No Immunizations Up To Date Date of Pneumonia Vaccine: Jan 29, 2017 Date of Influenza Vaccine: Jan 29, 2018 Seasonal Allergies Seasonal Allergies: Yes Past Medical History Surgeries: Breast, Gallbladder, Tubal Ligation Cardiac: Atrial Fibrillation, Cardiomyopathy, Chronic Edema/Swelling, Hypertension Reproductive: No Sexually Transmitted Disease: No HIV/AIDS: No Tubal Ligation Genitourinary: Bladder Infection Gastrointestinal: Polyps Musculoskeletal: Arthritis Loss of Vision: Bilateral Hearing Impairment: Denies Cancer: Breast Did You Recieve Any Treatments: Yes What Type of Treatment Did You: Chemotherapy, Radiation, Surgical Intervention History of Blood Disorders: No Adverse Reaction to Blood Das: No (N/A) Family History No Pertinent Family Hx PM&R Allergy/Meds/Data Review Allergies Coded Allergies: codeine (Verified Allergy, Mild, HALLUCINATIONS, 01/18/17) hydrocodone (Verified Allergy, NAUSEA AND VOMITING, 05/24/22) oxycodone (Verified Allergy, NAUSEA AND VOMITING, 05/24/22) Home Medications Scheduled Amiodarone HCl (Amiodarone HCl), 400 MG PO DAILY, (Reported) Apixaban (Eliquis), 5 MG PO BID, (Reported) Carvedilol (Carvedilol), 12.5 MG PO BID, (Reported) Cyanocobalamin (Vitamin B-12) (Vitamin B-12), 1,000 MCG PO DAILY, (Reported) Empagliflozin (Jardiance), 10 MG PO DAILY, (Reported) Fish Oil/Dha/Epa (Fish Oil 1,200 mg Fish Oil), 1 EACH PO DAILY, (Reported) Furosemide (Furosemide), 40 MG PO DAILY, (Reported) Letrozole (Letrozole), 2.5 MG PO DAILY, (Reported) Meclizine HCl (Meclizine HCl), 25 MG PO DAILY, (Reported) Spironolactone (Spironolactone), 12.5 MG PO DAILY, (Reported) Venlafaxine HCl (Venlafaxine HCl ER), 150 MG PO DAILY, (Reported) Scheduled PRN Potassium Gluconate (Potassium Gluconate 595 MG), 99 MG PO DAILY PRN for MUSCLE CRAMPS, (Reported) Discontinued Medications Amiodarone HCl (Amiodarone HCl), 100 MG PO DAILY, (Reported) Discontinued Reason: No Longer Taking Carvedilol (Carvedilol), 12.5 MG PO BID Discontinued Reason: No Longer Taking Empagliflozin (Jardiance), 10 MG PO DAILY Discontinued Reason: Duplicate Order Furosemide (Furosemide), 80 MG PO DAILY Discontinued Reason: Duplicate Order Sacubitril/Valsartan (Entresto 24 mg-26 mg Tablet), 1 TAB PO BID Discontinued Reason: No Longer Taking Spironolactone (Spironolactone), 12.5 MG PO DAILY Discontinued Reason: Duplicate Order Current Medications Current Medications Reviewed Review of Systems Constitutional: see HPI, malaise, weakness EENTM: no symptoms reported Respiratory: dyspnea on exertion Cardiovascular: no symptoms reported Gastrointestinal: no symptoms reported Genitourinary: no symptoms reported Musculoskeletal: back pain Skin: no symptoms reported Psychiatric/Neurological: Weakness All Other Systems Reviewed Negative Unless Noted: Yes Physical Exam Physical Exam Vital Signs Capillary Refill : Height, Weight, BMI Height: 5'8.00" Weight: 230lbs. 0.0oz. [id number]; 38.29 BMI Method:Stated General Appearance: No Apparent Distress, WD/WN, Chronically ill, Obese Eyes: Bilateral Eye Normal Inspection, Bilateral Eye PERRL HEENT: PERRL/EOMI, Normal ENT Inspection, Pharynx Normal Neck: Full Range of Motion, Normal Inspection, Non Tender, Supple, Carotid Bruit Respiratory: Chest Non Tender, Lungs Clear, No Accessory Muscle Use, No Respiratory Distress, Decreased Breath Sounds Cardiovascular: Regular Rate, Rhythm, No Edema, No Gallop, No JVD, No Murmur, Normal Peripheral Pulses Gastrointestinal: Normal Bowel Sounds, No Organomegaly, No Pulsatile Mass, Non Tender, Soft Back: Normal Inspection, No CVA Tenderness, No Vertebral Tenderness Extremity: Normal Capillary Refill, Normal Inspection, Normal Range of Motion, Non Tender, No Calf Tenderness, No Pedal Edema Neurologic/Psychiatric: Alert, Oriented x3, Normal Mood/Affect, cryptographic vulnerability analyst II-XII Norm as Tested, Abnormal Gait, Motor Weakness (generalized) Skin: Normal Color, Warm/Dry Lymphatic: No Adenopathy PM&R Medical Assessment & Plan REHAB/MEDICAL ASSESSMENT AND PLAN: REHAB IMPAIRMENT GROUP: Cardiogenic shock debility ETIOLOGIC DIAGNOSIS: Cardiogenic shock debility The comorbidities that impact the patients function and/or functional outcome by: Severe debility, cardiogenic shock, renal failure, HTN OOC REHAB PLAN: The patient is being admitted to our comprehensive inpatient rehabilitation facility and can tolerate the intensity of service consisting of at least: 180 minutes of therapy a day, 5 out of 7 days a week Rehab treatment will consist of: PT OT will focus on regaining function with use of AD in order to regain independence and increase stamina in order to return back to independent living The patient/family has a good understanding of our discharge process and will benefit from an interdisciplinary inpatient rehabilitation program. The patient has potential to make improvement and is in need of at least two of the following multidisciplinary therapies including but not limited to physical, occupational, speech, and prosthetics and orthotics. Additionally the patient will need services from respiratory, nutritional services, wound care, psychology, etc. (Customize this to each patient). Given the patients complex condition and risk of further medical complications, rehabilitation services cannot be safely or effectively provided at a lower level of care such as a intermediate facility. BARRIERS TO DISCHARGE: Severe debility ESTIMATED LOS: 10 days DISPOSITION: Home RELEVANT CHANGES SINCE PREADMISSION SCREENING: I have compared the patients medical and functional status at the time of the preadmission screening and there are: no changes PROGNOSIS: Fair REHABILITATION GOALS: 1. PT OT will focus on regaining function with use of AD in order to regain independence and increase stamina in order to return back to independent living All the above goals were reviewed with the patient and he/she is in agreement. By signing this document, I acknowledge that I have personally performed a full physical examination on this patient within 24 hours of admission to this inpatient rehabilitation facility and have determined the patient to be able to tolerate the above course of treatment at an intensive level for a reasonable period of time. I will be completing a detailed individualized Plan of Care for this patient by day #4 of the patients stay based upon the Preadmission Screen, the Post-Admission Evaluation, and the therapy evaluations. Admission Dx/Comorbidities: (1) Cardiogenic shock Status: Resolved ICD Codes: R57.0 - Cardiogenic shock (2) Septic shock Status: Resolved ICD Codes: A41.9 - Sepsis, unspecified organism; R65.21 - Severe sepsis with septic shock (3) Splenic cyst Status: Acute ICD Codes: D73.4 - Cyst of spleen (4) Hypercalcemia Status: Acute ICD Codes: E83.52 - Hypercalcemia (5) ATN (acute tubular necrosis) Status: Acute ICD Codes: N17.0 - Acute kidney failure with tubular necrosis (6) Gilbert syndrome Status: Chronic ICD Codes: E80.4 - Gilbert syndrome (7) Lactic acidosis Status: Resolved ICD Codes: E87.20 - Acidosis, unspecified (8) E. coli UTI Status: Acute ICD Codes: N39.0 - Urinary tract infection, site not specified; B96.20 - Unspecified Escherichia coli [E. coli] as the cause of diseases classified elsewhere (9) Shock liver Status: Acute ICD Codes: K72.00 - Acute and subacute hepatic failure without coma (10) Unconjugated hyperbilirubinemia Status: Acute ICD Codes: E80.6 - Other disorders of bilirubin metabolism (11) Acute on chronic HFrEF (heart failure with reduced ejection fraction) Status: Acute ICD Codes: I50.23 - Acute on chronic systolic (congestive) heart failure (12) NSTEMI (non-ST elevation myocardial infarction) Status: Acute ICD Codes: I21.4 - Non-ST elevation (NSTEMI) myocardial infarction (13) Paroxysmal atrial fibrillation with RVR ICD Codes: I48.0 - Paroxysmal atrial fibrillation (14) Vomiting in adult Status: Acute ICD Codes: R11.10 - Vomiting, unspecified Assessment/Plan Assessment and Plan Assess & Plan/Chief Complaint Assessment: Cardiogenic shock Debility LUIS Liver shock AF PAF s/p RVR Liver shock s/p E coli severe sepsis UTI Hypoxia Plan: Monitor creat Monitor CHF Monitor O2 Completed abx ANNEL ESTES DO May 24, 2022 09:37
[2022-05-24] MEDS ORDERED: DOCUSATE SODIUM 100 MG (COLACE) CAP PO PRN (09:45)
[2022-05-24] MEDS ORDERED: MELATONIN 3 MG TABLET PO PRN ×2 (09:45→12:00)
[2022-05-24] MEDS ORDERED: ONDANSETRON 4 MG (ZOFRAN) ORAL DISSOLVE TAB PO PRN ×2 (09:45→12:00)
[2022-05-24] MEDS ORDERED: FLEET ENEMA ADULT 1 EA BTL PR PRN (09:45)
[2022-05-24] MEDS ORDERED: BISACODYL 10 MG SUPP (DULCOLAX) PR PRN ×2 (09:45→12:00)
[2022-05-24] MEDS ORDERED: ACETAMINOPHEN 325 MG TABLET PO PRN (09:45)
[2022-05-24] MEDS ORDERED: LACTULOSE SYRUP 10GM/15ML (ENULOSE) 30ML UDC PO PRN (09:45)
[2022-05-24] MEDS ORDERED: CALCIUM CARBONATE 500 MG (TUMS) TAB.CHEW PO PRN ×2 (09:45→12:00)
[2022-05-24] MEDS ORDERED: LOPERAMIDE 2 MG (IMODIUM) TABLET PO PRN (09:45)
[2022-05-24] MEDS ORDERED: diphenhydrAMINE 25 MG TAB (BENADRYL) PO PRN (09:45)
[2022-05-24] MEDS ORDERED: ALPRAZolam 0.25 MG (XANAX) TAB PO PRN (09:45)
--- NOTE | 2022-05-24 11:09 | Progress Note ---
APOLINAR DURHAM I 05/24/22 1108: Progress Note Hospital Course: Sandra Richter is a 71 year old female with past medical history of breast cancer, paroxysmal A. fib/flutter on Eliquis, HFrEF, and HLD who was admitted to the [facility] from 05/17/22 - 05/24/22. She presented with 1 day of nonbloody nonbilious vomiting and generalized weakness and was having heart palpitations at that time. She was found to be in Atrial fibrillation with RVR as well as septic vs. cardiogenic shock which required pressors until 05/22. Her hospital course was complicated by ischemic hepatitis, LUIS secondary to acute tubular necorosis, E. Coli UTI, and chronic HFrEF. [place] [address] and 4623 respectively, but had improved to 64 and 671 respectively, by time of discharge. Her Creatinine reached as high as 3.59 but had improved to 3.03 by time of discharge and patient was having normal urine production. Patient will need close follow up in rehab and with PCP to ensure liver and kidney function continue to improve. She received 6 days of ceftriaxone 2g IV Q24hr for her UTI and had a gomes catheter in place at time of discharge to rehab. An echo on 05/17/22 revealed patient had an EF of 20-25% and patient was followed by cardiology team and treated intermittently with IV lasix. Treatment options for patients HFrEF were limited due to liver/kidney function. During her stay she was found to have elevated calcium with an elevated PTH and normal 24 hr urine calcium indicating likely primary hyperparathyroidism. Patient was very sick upon arrival but at time of discharge has converted to regular sinus rhythm with marked improvement in lab values and hemodynamically stable without pressors. She is being discharged to in-patient rehabilitation unit where she can work with PT/OT to regain her strength and be monitored closely prior to discharge home. PMH: CHF, R arthritic knee MSH: L lumpectomy, R mastectomy, cholecystectomy Social: Denies tobacco product use, EtOH, and recreational drugs. . Lives in [place]. Close support with sister. OBJ: T 36.1 BP 145/67. HR 72. RR 17. 98% O2 ORA PE General: tired lying supine on bed, pleasantly conversational. HEET: Atruamatic, normocephalic, PERRL Neck: Right IJ line present without erythema Cardio: systolic decrescendo murmur appreciated Resp: CTAB. Equal chest rise and fall, no increased work of breathing. Extremeties: Legs and hands swollen. Assessment/Plan Sandra Richter is a 71 year old woman with PMH of breast cancer, PAF/F and UTI, recovering from shock secondary to cardiac and infective etiologies. She is physically debilitated and would benefit from acute rehab. Cardiogenic shock - continue to monitor liver, kidney function - in normal sinus rhythm, continue carvedilol - Still retaining fluid, judicious lasix use - Compression stockings UTI (resolving) - chun S E.coli isolated - s/p x7 days 2g ceftraxone - WBC WNL - Gomes in, urine sonali colored - Trial gomes removal AoC HFrEF - 05/17 echo with LVEF of 20-25%, global hypokinesis - Will need cardiology follow-up outpatient for medication optimization ATN (resolving) - secondary to shock - urine output adequate - BUN Cr still elevated, but trending down - continue to monitor. LUIS - secondary to shock - urine output adequate - BUN Cr still elevated, but trending down - continue to monitor. Shock liver - ALT/AST, Bili, drastic improvement, continuing to trend down - Monitor while in acute rehab Hx breast cancer - s/p mastectomy and lumpectomy - continue letrozole Unconjugated hyperbilirubinemia - Possible Gilbert's, although higher levels than classic - Monitor outpatient Elevated troponin - Likely due to shock vs Type 2 ND with HFrEF - Follow with cardiology outpatient Hypercalcemia -Patient maintained mild hypercalcemia dring her stay and was found to have elevated PTH with normal urine calcium. -Probable primary hyperparathyroidism. No indication for treatment at this time but should be followed up by PCP. Splenic cyst - incendental finding on 05/18 CT with recommendation for 3 month MRI follow up. Septic shock (resolved) - continue to monitor liver, kidney function - no longer needs pressors - monitor vitals - Lactic acidosis resolved VENITA ESTES DO 05/25/22 0610: Supervisory-Addendum Brief Verification & Attestation Participated in pt care: history, MDM, physical Personally performed: exam, history, MDM, supervision of care Care discussed with: Medical Student Procedures: n/a Results interpretation: Verified all documentation Verification and Attestation of Medical Student E/M Service A medical student performed and documented this service in my presence. I reviewed and verified all information documented by the medical student and made modifications to such information, when appropriate. I personally performed the physical exam and medical decision making. Venita Estes, May 25, 2022,06:10 APOLINAR DURHAM I May 24, 2022 11:08 VENITA ESTES DO May 25, 2022 06:10
--- NOTE | 2022-05-24 11:23 | Occupational Therapy Eval ---
OT Evaluation-General/PLF Medical Diagnosis Admission Date May 24, 2022 at 09:15 Medical Diagnosis: cardiogenic shock Onset Date: May 17, 2022 Therapy Diagnosis Therapy Diagnosis: decreased ADL status Height/Weight Height (Feet): 5 Height (Inches): 8.00 Weight (Pounds): 230 Weight (Ounces): 0.0 Referral Physician: Wilmer Barroso Reason: Evaluation/Treatment Medical History Pertinent Medical History: Arthritis, Heart Failure, HTN Additional Medical History paroxysmal afib/flutter, HFrEF, HLD, arthritis, breast cancer (chemo/radiation/surgical intervention) Current History Presents with nonbloody nonbilious vomitting and general weakness 05/17/22. transfer to ARU 05/24/22 Social History Home: Single Level Current Living Status: Alone Entry Into Home: Ramp ADL-Prior Level of Function SCALE: Activities may be completed with or without assistive devices. 5-Feubrdcsow-korjpnb completes the activity by him/herself with no assistance from a helper. 5-Set-up or Clean-up Assistance-helper sets up or cleans up; patient completes activity. [place] assists only prior to or following the activity. 4-Supervision or Touching Assistance-helper provides verbal cues and/or touching/steadying and/or contact guard assistance as patient completes activity. Assistance may be provided throughout the activity or intermittently. 3-Partial/Moderate Assistance-helper does LESS THAN HALF the effort. [place] lifts, holds or supports trunk or limbs, but provides less than half the effort. 2-Substantial/Maximal Assistance-helper does MORE THAN HALF the effort. [place] lifts or holds trunk or limbs and provides more than half the effort. 3-Estayzjyr-afnfjq does ALL the effort. Patient does none of the effort to complete the activity. Or, the assistance of 2 or more helpers is required for the patient to complete the activity. If activity was not attempted, code reason: 7-Patient Refused. 9-Not Applicable-not attempted and the patient did not perform the activity before the current illness, exacerbation or injury. 10-Not Attempted due to Environmental Limitations-(lack of equipment, weather restraints, etc.). 88-Not Attempted due to Medical Conditions or Safety Concerns. ADL PLOF Comments Pt reports IND with ADLs and functional mobility at PLOF, using FWW. She has some difficulty with R footwear due to R knee pain/issues, but is able to complete R footwear with increased time and propping foot up on stools/surfaces. pt has a walk in shower and a tub/shower, she has recently only been using the tub shower stating it is easier for her to get in/out of. She is able to hold onto doorways and grab bars for balance as she steps over the ledge. Pt does not have SC. Self Care: Independent Functional Cognition: Independent DME/Equipment: Tub/Shower OT Current Status Subjective Pt in w/c, agreeable to OT evaluation. LEIGH present to continue OT tx after evaluation. Mental Status/Objective Patient Orientation: Person, Place, Time, Situation Attachments: Haddad Catheter Current Glasses/Contacts: Yes Hearing Aids: No Dentures/Partials: No Hand Dominance: Right Upper Extremity ROM Slightly impaired ROM in LUE due to swelling in hand/arm. Pt able LUE shoulder flexion ~140 degrees, WFL at elbow, slightly impaired at wrist and fingers. RUE WFL, shoulder flexion ~140 degrees, WFL elbow/wrist/hand. Upper Extremity Coordination slightly decreased due to swelling in L hand Upper Extremity Sensation WFL per pt report. some neuropathy in L fingertips, this is pt's PLOF. Upper Extremity Strength Grossly 3+/5 BUEs. Edema: Swelling noted primarily in pt's LUE hand and forearm. ADL-Treatment Eating (QC): 5 Oral Hygiene (QC): 5 Shower/Bathe Self (QC): 4 (SBA sponge bath seated on BSC) Upper Body Dressing (QC): 4 (SBA) Lower Body Dressing (QC): 3 (Dimitri threading RLE) On/Off Footwear (QC): 3 (Min A with R gripper sock donning/doffing. Pt able to complete L gripper sock.) Toileting Hygiene (QC): 4 (CGA) Other Treatments Pt in w/c, agreeable to OT evaluation. Pt provided information about PLOF and home set up and participated in UE screen. Noted swelling in pt's L hand and forearm. Pt indicates her R hand and arm are somewhat swollen as well, but not as swollen as LUE. Pt participated in BIMs questions. Pt left in w/c with LEIGH present for continued OT tx, all needs met. Education OT Patient Education: Correct positioning, Energy conservation, Modified ADL techniques, Progress toward Goal/Update tx plan, Purpose of tx/functional activities, Rehab process Teaching Recipient: Patient Teaching Methods: Discussion Response to Teaching: Verbalize Understanding BIMS CAM BIMS Expression of Ideas and Wants: Without Difficulty Understanding Verbal Content: Understands IRF NEIL BIMS: IRF NEIL BIMS Response (Comments) Value Repitition of Three Words Three 3 Recalls Socks Yes, No Cue Required 2 Recalls Blue Yes, No Cue Required 2 Recalls Bed No, Could Not Recall 0 Year Correct 3 Month Accurate Within 5 Days 2 Day Correct 1 Total 13 CAM Mental Status Change/Baseline: 0 Inattention: 0 Disorganized thinkin Altered level of consciousness: 0 OT Short Term Goals Short Term Goals Time Frame: Jun 08, 2022 Shower/bathe self: 5 Upper body dressin Lower body dressin Putting on/taking off footwear: 5 OT Retirement Goals Retirement Goals Time Frame: Jun 17, 2022 Eating (QC): 6 Oral Hygiene (QC): 6 Toileting Hygiene (QC): 6 Shower/Bathe Self (QC): 6 Upper Body Dressing (QC): 6 Lower Body Dressing (QC): 6 On/Off Footwear (QC): 6 Additional Goals: 1-Demonstrate ADL Tasks, 2-Verbalize Understanding, 3- ImproveStrength/Jamir 1=Demonstrate adherence to instructed precautions during ADL tasks. 2=Patient will verbalize/demonstrate understanding of assistive devices/mo difications for ADL. 3=Patient will improve strength/tolerance for activity to enable patient to perform ADL's. OT Education/Plan Problem List/Assessment Assessment: Decreased Activ Tolerance, Decreased UE Strength, Impaired Funct Balance, Impaired I ADL's, Impaired Self-Care Skills, Restricted Funct UE ROM Discharge Recommendations Plan/Recommendations: Continue POC Equpiment Recommendations-D/C: Extended Bath Bench, Bath Chair, Hip Kit Comment AE recommendations to be determined based on pt's progress with therapy. At time of evaluation, pt may benefit from extended bath bench vs SC, and hip kit. Treatment Plan/Plan of Care Patient would benefit from OT for education, treatment and training to promote independence in ADL's, mobility, safety and/or upper extremity function for ADL's. Plan of Care: ADL Retraining, Functional Mobility, Group Exercise/Act as Ind, UE Funct Exercise/Act, OTHER (edema management UEs) Treatment Duration: Jun 17, 2022 Frequency: At least 5 of 7 days/Wk (IRF) Estimated Hrs Per Day: 1.5 hours per day Agreement: Yes Rehab Potential: Good Time Start Time: 11:00 Stop Time: 11:10 DATE: May 24, 2022 Total Time Billed (hr/min): 10 Billed Treatment Time 1, SAMI MEDRANO OT May 24, 2022 11:23
--- NOTE | 2022-05-24 11:37 | ST Cognitive Linguistic Eval ---
Speech Evaluation-General Medical Diagnosis Cardiogenic Shock Onset Date: May 17, 2022 Therapy Diagnosis Therapy Diagnosis: Intact (Baseline) Cognition Precautions Precautions: Fall Precautions/Isolations: Fall Prevention, Standard Precautions Referral Referring Physician: Dr. Guillen Reason for Referral: Evaluation/Treatment Medical History Pertinent Medical History: Arthritis, Heart Failure, HTN Social History Current Living Status: Alone Speech PLF-Current Status Prior Level of Function The patient denied changes, concerns, or difficulties with her cognition, speech, or language. Subjective The patient was lying in bed, awake and alert, upon entrance to the patient's room by the clinician. The patient greeted the clinician appropriately and was agreeable to participation in the cognitive linguistic assessment. The patient's sister was present at bedside for the evaluation. Language Eval: Auditory Comprehends Simple Yes/No Ques: Functional Ident/Pics in Multiple [place]: Functional Follows 1-Step Commands: Functional Follows General Conversations: Functional Language Eval: Verbal Language Completes Spontaneous Greeting: Functional Imitates Simple Words/Phrases: Functional Word Finding: Functional Requests Basic Needs: Functional States Basic Personal Info: Functional Expresses Complex Ideas: Functional Language Evaluation: Reading Follows Simple Written Direct: Functional Language Evaluation: Writing Writes to Simple Dictation: Functional Objective Cognitive Domain Attention: WNL Memory: WNL Problem Solving: Functional Executive Functions: WNL Visuospatial Skills: WNL Composite Severity Rating: WNL Clock Drawing Severity Rating: WNL Objective Formal/Standardized Tests [facility] Mental Status Exam (UMS) Results The patient demonstrated a result of +30/30 on the SLUMS correlating to a score of cognitive linguistic skills within normal limits. Oral Motor/Speech Production The patient does not display dysarthria or apraxia of speech. The patient is 100% intelligible in known and unknown contexts. Impression The patient demonstrated intact and baseline cognitive skills. Speech-Plan Treatment Plan Speech Therapy Treatment Plan: Discontinue ST Treatment Duration: May 24, 2022 Frequency: 1 time per week Estimated Hrs Per Day: .5 hour per day Rehab Potential: Good Pt/Family Agrees to Plan: Yes Safety Risks/Education Teaching Recipient: Patient, Family Teaching Methods: Discussion Response to Teaching: Verbalize Understanding Education Topics Provided: Results, Recommendations, Plan of Care Time Speech Therapy Time In: 10:05 Speech Therapy Time Out: 10:25 DATE: May 24, 2022 Total Billed Time: 20 Billed Treatment Time 1, CRIS CABRERAY,PRASANNA ST May 24, 2022 11:37
--- NOTE | 2022-05-24 11:56 | Physical Therapy Evaluation ---
PT Evaluation-General Medical Diagnosis Admission Date May 24, 2022 at 09:15 Medical Diagnosis: Cardiogenic Shock Onset Date: May 17, 2022 Therapy Diagnosis Therapy Diagnosis: impaired mobility, strength, endurance Height/Weight Height (Feet): 5 Height (Inches): 8.00 Weight (Pounds): 230 Weight (Ounces): 0.0 Precautions Precautions/Isolations: Fall Prevention, Standard Precautions Referral Physician: Venita Guillen DO Reason for Referral: Evaluation/Treatment Medical History Pertinent Medical History: Arthritis, Heart Failure, HTN Reviewed History: Yes Social History Home: Single Level Current Living Status: Alone Entry Into Home: Ramp Prior Prior Level of Function SCALE: Activities may be completed with or without assistive devices. 0-Hlomrypwlq-stwcfrg completes the activity by him/herself with no assistance from a helper. 5-Set-up or Clean-up Assistance-helper sets up or cleans up; patient completes a ctivity. [place] assists only prior to or following the activity. 4-Supervision or Touching Assistance-helper provides verbal cues and/or touching/steadying and/or contact guard assistance as patient completes activity. Assistance may be provided throughout the activity or intermittently. 3-Partial/Moderate Assistance-helper does LESS THAN HALF the effort. [place] lifts, holds or supports trunk or limbs, but provides less than half the effort. 2-Substantial/Maximal Assistance-helper does MORE THAN HALF the effort. [place] lifts or holds trunk or limbs and provides more than half the effort. 1-Iokqjcaxi-ecmewm does ALL the effort. Patient does none of the effort to complete the activity. Or, the assistance of 2 or more helpers is required for the patient to complete the activity. If activity was not attempted, code reason: 7-Patient Refused. 9-Not Applicable-not attempted and the patient did not perform the activity before the current illness, exacerbation or injury. 10-Not Attempted due to Environmental Limitations-(lack of equipment, weather restraints, etc.). 88-Not Attempted due to Medical Conditions or Safety Concerns. Bed Mobility: 6 Transfers (B,C,W/C): 6 Gait: 6 Indoor Mobility (Ambulation): Independent Prior Devices Use: Walker PT Evaluation-Current Subjective Patient in bed pre tx, agrees to PT, has no pain at rest but has an arthritic right knee and has severe pain with activity. Will be co-treating with OT for part of tx due to poor patient mobility, strength, endurance, severe pain with activity, coordinate UE and LE with activity, safety and reduce risk of falls. Pain Section J - Health Conditions 1. Rarely or not at all 2. Occasionally 3. Frequently 4. Almost constantly 8. Unable to answer Pain Effect on Sleep: 3 Pain Interference with Therapy: 3 Pain Interference w/Day-to-Day: 3 Pt/Family Goals to be independent at home Objective Patient Orientation: Person, Place, Situation Attachments: Haddad Catheter ROM/Strength ROM Lower Extremities limited due to BLE swelling and arthritis in right knee Strength Lower Extremities RLE grossly 2/5, LLE grossly 3+/5 Sensory Vision: Wears Glasses Hearing: Functional Hand Dominance: Right Sensation Right Lower Extremit: Intact Sensation Left Lower Extremity: Intact Sensation Lower Extremities Patient states she has peripheral neuropathy but seems to have intact light touch sensation bilaterally Transfers Roll Left & Right (QC): 4 Sit to Lying (QC): 3 Lying to Sitting/Side of Bed(Q: 3 Sit to Stand (QC): 4 Chair/Lvj-nj-Xltyk Xfer(QC): 4 Toilet Transfer (QC): 4 Car Transfer (QC): 3 Patient performs rolling with SBA, supine <-> sit mod assist, sit <-> stand and transfers CGA, car transfer min assist. Patient needs cues for positioning and safety, increased pain in right knee with weight bearing. Gait Walk 10 feet (QC): 4 Walk 50 ft with 2 Turns(QC): 88 Walk 150 ft (QC): 88 Walking 10ft/uneven surface-QC: 4 Distance: 20'x2 Gait Assistive Device: FWW Comments/Gait Description Patient can ambulate 20' with a rolling walker with CGA (including 10' over an uneven surface), gait is slow and antalgic due to arthritic right knee. Wheelchair Training Does the Pt Use a Wheelchair?: Yes Distance: 20' Wheel 50 ft with 2 turns (QC): 88 Wheel 150 ft (QC): 88 Type of Wheelchair: Manual SBA Stairs 1 Step (curb) (QC): 88 4 Steps (QC): 88 12 Steps (QC): 88 Balance Sitting Static: Normal Sitting Dynamic: Normal Standing Static: Fair Standing Dynamic: Fair Picking up an Object (QC): 4 (CGA using a bead forming machine operator.) Treatment Patient also performed bathing and dressing. PT performed bed mobility and transfers, ambulation, WC mobility, positioning and safety during bathing and dressing, OT performed bathing, dressing, ADL's, UE positioning and safety during activity. Assessment/Needs Patient in bed post tx with nurse call, phone, tray, all needs met. Patient has impaired mobility, strength, endurance. Patient cannot tolerate very much activity, needs frequent rest breaks. Her BP was 235/126 while in the shower, she was quickly dried off and dressed and got to bed, BP was 192/76 after getting into bed. Nurse notified. Rehab Potential: Fair PT Short Term Goals Short Term Goals Time Frame: May 31, 2022 Sit to lyin (Gladys) Lying to sitting on side of be: 3 (Gladys) Sit to stand: 4 (SBA) Chair/dge-ut-dhcvb transfer: 4 (SBA) Walk 10 feet: 4 (SBA) Walk 50 feet with two turns: 4 (SBA) PT Residential Goals Vest Busheler Goals PT Vest Busheler Goals Time Frame: Jun 07, 2022 Roll Left to Right (QC): 6 Sit to Lying (QC): 4 (SBA) Lying-Sitting on Side/Bed(QC): 4 (SBA) Sit to Stand (QC): 6 Chair/Uib-dv-Luxrc Xfer(QC): 6 Toilet/Commode Transfer (QC): 6 Car Transfer (QC): 4 (SBA) Does the Patient Walk: Yes Walk 10 feet (QC): 6 Walk 10ft-Uneven Surface(QC): 6 Walk 50ft with 2 Turns (QC): 6 Walk 150 ft (QC): 88 Wheel 50 feet with 2 turns (QC: 9 Wheel 150 feet: 9 1 Step (curb) (QC): 88 4 Steps (QC): 88 12 Steps (QC): 88 Picking up an Object (QC): 6 (using bead forming machine operator) PT Plan Problem List Problem List: Activity Tolerance, Functional Strength, Safety, Balance, Gait, Transfer, Bed Mobility, ROM Treatment/Plan Treatment Plan: Continue Plan of Care Treatment Plan: Bed Mobility, Education, Functional Activity Jamir, Functional Strength, Group Therapy, Gait, Safety, Therapeutic Exercise, Transfers Treatment Duration: Jun 07, 2022 Frequency: At least 5 of 7 days/Wk (IRF) Estimated Hrs Per Day: 1.5 hours per day Patient and/or Family Agrees t: Yes Safety Risks/Education Patient Education: Gait Training, Transfer Techniques, Correct Positioning, W/C Management, Safety Issues Teaching Recipient: Patient Teaching Methods: Demonstration, Discussion Response to Teaching: Reinforcement Needed Discharge Recommendations Plan Patient will perform bed mobility and transfer training, balance and endurance training, functional strengthening, stair training, gait training, and education, to improve functional mobility and independence at home. Therapy Discharge Recommendati: Scheduled Assistance, Home & Family, Post Acute PT Time Time In: 1045 Time Out: 1215 DATE: May 24, 2022 Total Billed Treatment Time: 80 Total Billed Treatment 1 visit EVM 15' FA 65' PT eval from [id number], OT eval from [id number], co-treat from [id number] ZOFIA RAMIREZ PT May 24, 2022 11:56
[2022-05-24] MEDS ORDERED: cefTRIAXone 2,000 MG in NS (IVPB) 50 ML IV SCH (12:00)
[2022-05-24] MEDS ORDERED: NS IV 500 ML 500 ML IV PRN (12:00)
[2022-05-24] MEDS ORDERED: ONDANSETRON 4 MG/2 ML (SDV) Z0FRAN IV PRN (12:00)
[2022-05-24] MEDS ORDERED: polyethylene glycoL POWDER 17 GM (MIRALAX) PACK PO PRN (12:00)
[2022-05-24] MEDS ORDERED: MILK OF MAGNESIA 400 MG/5 ML 30 ML UDC PO PRN (12:00)
[2022-05-24] MEDS ORDERED: NS IV 1000 ML 1,000 ML IV SCH (12:00)
[2022-05-24] MEDS ORDERED: ANTACID SUSP 30 ML UDC (MYLANTA) PO PRN (12:00)
--- NOTE | 2022-05-24 12:53 | Occupational Ther Daily Note ---
OT Current Status-Daily Note Subjective Pt alert, sitting in w/c. Took over care from OTR/L. OT/PT co-treat ([id number]), skills of 2 clinicians required due to poor patient mobility, strength, endurance, severe debility, coordinate UE and LE during activity PT focusing on transfers, ambulation and mobility while OT focusing on ADLs and functional mobility. During session, pt began feeling dizzy. Patient cannot tolerate very much activity, needs frequent rest breaks. Her BP was 235/126 while in the shower, she was quickly dried off and dressed and got to bed, BP was 192/76 after getting into bed with B LE elevated. Nurse notified. Mental Status/Objective Patient Orientation: Person, Place, Time, Situation ADL-Treatment Pt agrees to shower. Sitting on BSC in shower, pt able to bathe all areas by self, SBA for safety. Pt then ambulated to bed using FWW, see above note for details of pt's BP. Mod A for EOB to supine. After session, pt lying in bed with call light/phone in reach. All needs met in room. Therapy Code Descriptions/Definitions Functional [place] Measure: 0=Not Assessed/NA 4=Minimal Assistance 1=Total Assistance 5=Supervision or Setup 2=Maximal Assistance 6=Modified [place] 3=Moderate Assistance 7=Complete IndependenceSCALE: Activities may be completed with or without assistive devices. 3-Ruhraeqaoh-qydnkyd completes the activity by him/herself with no assistance from a helper. 5-Set-up or Clean-up Assistance-helper sets up or cleans up; patient completes activity. [place] assists only prior to or following the activity. 4-Supervision or Touching Assistance-helper provides verbal cues and/or touching/steadying and/or contact guard assistance as patient completes activit y. Assistance may be provided throughout the activity or intermittently. 3-Partial/Moderate Assistance-helper does LESS THAN HALF the effort. [place] lifts, holds or supports trunk or limbs, but provides less than half the effort. 2-Substantial/Maximal Assistance-helper does MORE THAN HALF the effort. [place] lifts or holds trunk or limbs and provides more than half the effort. 0-Ielxaqbna-kdgqsp does ALL the effort. Patient does none of the effort to complete the activity. Or, the assistance of 2 or more helpers is required for the patient to complete the activity. If activity was not attempted, code reason: 7-Patient Refused. 9-Not Applicable-not attempted and the patient did not perform the activity before the current illness, exacerbation or injury. 10-Not Attempted due to Environmental Limitations-(lack of equipment, weather restraints, etc.). 88-Not Attempted due to Medical Conditions or Safety Concerns. OT Short Term Goals Short Term Goals Time Frame: Jun 08, 2022 Shower/bathe self: 5 Upper body dressin Lower body dressin Putting on/taking off footwear: 5 OT Professor Of Astronomy Goals Halfway Goals Time Frame: Jun 17, 2022 Acute change in mental status: 0 Inattention: 0 Disorganized thinkin Altered level of consciousness: 0 Eating (QC): 6 Oral Hygiene (QC): 6 Toileting Hygiene (QC): 6 Shower/Bathe Self (QC): 6 Upper Body Dressing (QC): 6 Lower Body Dressing (QC): 6 On/Off Footwear (QC): 6 Additional Goals: 1-Demonstrate ADL Tasks, 2-Verbalize Understanding, 3- ImproveStrength/Jamir 1=Demonstrate adherence to instructed precautions during ADL tasks. 2=Patient will verbalize/demonstrate understanding of assistive devices/modifications for ADL. 3=Patient will improve strength/tolerance for activity to enable patient to perform ADL's. OT Education/Plan Problem List/Assessment Assessment: Decreased Activ Tolerance, Decreased UE Strength, Impaired Bed Mobility, Impaired Self-Care Skills Discharge Recommendations Plan/Recommendations: Continue POC Treatment Plan/Plan of Care Patient would benefit from OT for education, treatment and training to promote independence in ADL's, mobility, safety and/or upper extremity function for ADL's. Plan of Care: ADL Retraining, Functional Mobility, Group Exercise/Act as Ind, UE Funct Exercise/Act, OTHER (edema management UEs) Treatment Duration: Jun 17, 2022 Frequency: At least 5 of 7 days/Wk (IRF) Estimated Hrs Per Day: 1.5 hours per day Agreement: Yes Rehab Potential: Good Time Start Time: 11:10 Stop Time: 12:15 DATE: May 24, 2022 Total Time Billed (hr/min): 65 Billed Treatment Time 1 visit-ADL 5 (65 min) Co-treat with PT 65 min DEVORAH ELKINS May 24, 2022 12:53
--- NOTE | 2022-05-24 14:11 | Occupational Ther Daily Note ---
OT Current Status-Daily Note Subjective Pt sleeping in bed, woke to name. Pt agrees to education for OT treatment, declines to any OOB tasks. Mental Status/Objective Patient Orientation: Person, Place, Time, Situation ADL-Treatment Therapy Code Descriptions/Definitions Functional [place] Measure: 0=Not Assessed/NA 4=Minimal Assistance 1=Total Assistance 5=Supervision or Setup 2=Maximal Assistance 6=Modified [place] 3=Moderate Assistance 7=Complete IndependenceSCALE: Activities may be completed with or without assistive devices. 7-Gvtnovyayv-erbpbdg completes the activity by him/herself with no assistance from a helper. 5-Set-up or Clean-up Assistance-helper sets up or cleans up; patient completes activity. [place] assists only prior to or following the activity. 4-Supervision or Touching Assistance-helper provides verbal cues and/or touching/steadying and/or contact guard assistance as patient completes activity. Assistance may be provided throughout the activity or intermittently. 3-Partial/Moderate Assistance-helper does LESS THAN HALF the effort. [place] lifts, holds or supports trunk or limbs, but provides less than half the effort. 2-Substantial/Maximal Assistance-helper does MORE THAN HALF the effort. [place] lifts or holds trunk or limbs and provides more than half the effort. 6-Kvzqjttkf-gjvwfm does ALL the effort. Patient does none of the effort to complete the activity. Or, the assistance of 2 or more helpers is required for the patient to complete the activity. If activity was not attempted, code reason: 7-Patient Refused. 9-Not Applicable-not attempted and the patient did not perform the activity before the current illness, exacerbation or injury. 10-Not Attempted due to Environmental Limitations-(lack of equipment, weather restraints, etc.). 88-Not Attempted due to Medical Conditions or Safety Concerns. Other Treatment Educated pt on AE that is available for pt to use and energy conservation techniques. Pt verbalized understanding though was very fatigued and fell asleep quickly after discussion ended. After session, pt lying in bed with call light/phone in reach. All needs met in room. OT Short Term Goals Short Term Goals Time Frame: Jun 08, 2022 Shower/bathe self: 5 Upper body dressin Lower body dressin Putting on/taking off footwear: 5 OT Code Enforcement Officer Goals Code Enforcement Officer Goals Time Frame: Jun 17, 2022 Acute change in mental status: 0 Inattention: 0 Disorganized thinkin Altered level of consciousness: 0 Eating (QC): 6 Oral Hygiene (QC): 6 Toileting Hygiene (QC): 6 Shower/Bathe Self (QC): 6 Upper Body Dressing (QC): 6 Lower Body Dressing (QC): 6 On/Off Footwear (QC): 6 Additional Goals: 1-Demonstrate ADL Tasks, 2-Verbalize Understanding, 3- ImproveStrength/Jamir 1=Demonstrate adherence to instructed precautions during ADL tasks. 2=Patient will verbalize/demonstrate understanding of assistive devices/modifications for ADL. 3=Patient will improve strength/tolerance for activity to enable patient to perform ADL's. OT Education/Plan Problem List/Assessment Assessment: Decreased Activ Tolerance Discharge Recommendations Plan/Recommendations: Continue POC Treatment Plan/Plan of Care Patient would benefit from OT for education, treatment and training to promote independence in ADL's, mobility, safety and/or upper extremity function for ADL's. Plan of Care: ADL Retraining, Functional Mobility, Group Exercise/Act as Ind, UE Funct Exercise/Act, OTHER (edema management UEs) Treatment Duration: Jun 17, 2022 Frequency: At least 5 of 7 days/Wk (IRF) Estimated Hrs Per Day: 1.5 hours per day Agreement: Yes Rehab Potential: Fair Time Start Time: 13:30 Stop Time: 13:40 DATE: May 24, 2022 Total Time Billed (hr/min): 10 Billed Treatment Time 1 visit-FA 1 (10 min) DEVORAH ELKINS May 24, 2022 14:11
--- NOTE | 2022-05-24 18:20 | Progress Note - Cardiology ---
Cardiology SOAP Progress Note Subjective: Gen weakness No focal weakness No n/v/d Chronic L arm swelling worse since admission No cp or palp or syncope No fever or chills Objective: I&O/Vital Signs 05/24/22 05/24/22 05/24/22 05/24/22 10:12 11:40 11:50 11:57 Temp 36.1 Pulse 72 69 Resp 19 B/P (MAP) 126/60 (82) 235/126 (162) 192/76 (114) 139/63 (88) Pulse Ox 98 O2 Delivery Room Air 05/24/22 05/24/22 05/24/22 05/24/22 13:00 13:23 14:16 17:56 Pulse 65 71 Resp 20 B/P (MAP) 145/67 (93) 217/93 (134) Pulse Ox 98 99 O2 Delivery Room Air Room Air Weight (Pounds): 230 Weight (Ounces): 0.0 Weight (Calculated Kilograms): 104.249605 Constitutional: AAO x 3, well-developed, well-nourished Respiratory: No accessory muscle use; other (fair, bilateral air entry, diminished at the bases) Cardiovascular: regular rate-rhythm, S1 and S2, systolic murmur (soft YASSINE at card base) Gastrointestional: No tender; soft; No guarding, No rebound; audible bowel sounds Extremities: other (chronic edema of the L arm); No clubbing, No cyanosis Neurologic/Psychiatric: oriented x 3, other (moves all limbs equally) Skin: No rash on exposed areas, No ulcerations on exposed areas A/P: Assessment: Shock: septic and/or cardiogenic - mild troponin elevation due to type 2 MS due to hypotension - shock now resolved; currently hypertensive Hepatitis and jaundice of undetermined etiology - [facility] Coagulopathy - due to hepatic failure and due to apixaban - improved PAF - Apixaban held during marked hepatic impairment, now resumed Chronic HFrEF due to NICM (primarily managed by her pilot Dr Woodward in [place], [place]) - Echocardiogram of 04-08-[address] Felton showed LVEF 10-15% with severe diffuse hypokinesis. LA and RA dilated. Mod to severe AoR. Mod MR. Mod to severe TR. PASP 50-55 mmHg - She reports she had a sleep study done that was "inconclusive" - she does not use CPAP or supplemental oxygen - managed by Dr. Kirk - AICD - implanted in September 2021 at [facility] (single chamber device) - followed by Dr. Woodward - Echo on 05-17-22: LVEF 20-25%, global hypokinesis of LV, mild to mod MR, PASP 35-40 mmHg Acute renal failure - ATN due to hypotension vs hepatorenal syndrome - Cr improving, gradually HLD - statin tx H/o DVT R leg - OAC with Eliquis H/O Breast Cancer - has had a mastectomy Gen weakness - d/t prolonged critical illness Chronic lymphedema of the SUSAN Plan: * Complex management due to multiple comorbidities * Amlodipine and doxazosin for bp * Holding off on increasing her beta-dai because intermittently bradycardic today * Not suitable for NIRALI-inhib/ARB due to renal failure * Low dose iv furosemide today because in considerable positive fluid balance when was in the ICU * Monitor labs closely CHAU POPE MD FACP FAC CCDS May 24, 2022 18:20
[2022-05-24] MEDS ORDERED: FUROSEMIDE 40 MG/4 ML INJ (LASIX) IVP NR (18:30)
[2022-05-24] MEDS ORDERED: amLODIPine 10 MG (NORVASC) TAB PO NR (18:30)
[2022-05-24] MEDS: doxAzosin 2 MG (CARDURA) TAB PO SCH ×2 (18:46→21:05)
[2022-05-24] MEDS ORDERED: SENNA W/DOCUSATE (SENOKOT S) TABLET PO SCH (21:00)
[2022-05-24] MEDS: DOCUSATE SODIUM 100 MG (COLACE) CAP PO SCH (21:00)
[2022-05-24] MEDS ORDERED: doxAzosin 2 MG (CARDURA) TAB PO SCH (21:00)
[2022-05-24] MEDS ORDERED: DOCUSATE SODIUM 100 MG (COLACE) CAP PO SCH (21:00)
[2022-05-24] MEDS: SENNOSIDES 8.6 MG (SENOKOT) TAB PO SCH (21:00)
[2022-05-24] MEDS: polyethylene glycoL POWDER 17 GM (MIRALAX) PACK PO SCH (21:00)
[2022-05-24] MEDS: APIXABAN 5 MG (ELIQUIS) TABLET PO SCH (21:05)
[2022-05-25 05:44] VITALS: BP 146/65
[2022-05-25 05:50] LABS: BASOPHILS # (AUTO) 0.1 10^3/uL (0.0-0.1); BASOPHILS % (AUTO) 1 % (0-10); EOSINOPHILS # (AUTO) 0.3 10^3/uL (0.0-0.3); EOSINOPHILS % (AUTO) 5 % (0-10); HEMATOCRIT 30 % (35-52); HEMOGLOBIN 9.7 g/dL (11.5-16.0); LYMPHOCYTES # (AUTO) 0.9 10^3/uL (1.0-4.0); LYMPHOCYTES % (AUTO) 14 % (12-44); MEAN CORPUSCULAR HEMOGLOBIN 28 pg (25-34); MEAN CORPUSCULAR HGB CONC 32 g/dL (32-36); MEAN CORPUSCULAR VOLUME 88 fL (80-99); MEAN PLATELET VOLUME 10.4 fL (9.0-12.2); MONOCYTES # (AUTO) 0.8 10^3/uL (0.0-1.0); MONOCYTES % (AUTO) 13 % (0-12); NEUTROPHILS # (AUTO) 4.3 10^3/uL (1.8-7.8); NEUTROPHILS % (AUTO) 67 % (42-75); PLATELET COUNT 135 10^3/uL (130-400); WHITE BLOOD COUNT 6.4 10^3/uL (4.3-11.0)
[2022-05-25] MEDS: ACETAMINOPHEN 325 MG TABLET PO PRN (05:50)
[2022-05-25] MEDS: doxAzosin 2 MG (CARDURA) TAB PO SCH ×3 (05:51→20:55)
[2022-05-25 06:13] LABS: ALBUMIN 2.8 GM/DL (3.2-4.5); BILIRUBIN,TOTAL 2.3 MG/DL (0.1-1.0); CALCIUM 10.1 MG/DL (8.5-10.1); CREATININE SERUM 3.04 MG/DL (0.60-1.30); POTASSIUM 3.9 MMOL/L (3.6-5.0); TOTAL PROTEIN 5.3 GM/DL (6.4-8.2)
--- NOTE | 2022-05-25 06:21 | PM&R Progress Note ---
Subjective HPI/CC On Admission Date Seen by Provider: May 25, 2022 Time Seen by Provider: 08:30 Subjective/Events-last exam 05/25/2022: Slow moving today Labs reviewed Appreciate Dr Lundberg direction on bradycardia and HTN Labs reviewed Haddad cath in place Lasix given Third-spacing of fluid noted Nosebleeds so will initiate saline spray Review of Systems General: Fatigue, Malaise Objective Exam Vital Signs Vital Signs Date Time Temp Pulse Resp B/P (MAP) Pulse Ox O2 Delivery O2 Flow Rate FiO2 05/25/22 09:00 98 Room Air 05/25/22 07:56 67 05/25/22 07:35 36.3 20 168/77 (107) Capillary Refill : General Appearance: No Apparent Distress, WD/WN, Chronically ill, Obese HEENT: PERRL/EOMI, Normal ENT Inspection, Pharynx Normal Neck: Full Range of Motion, Normal Inspection, Non Tender, Supple, Carotid Bruit Respiratory: Chest Non Tender, Lungs Clear, No Accessory Muscle Use, No Respiratory Distress, Decreased Breath Sounds Cardiovascular: Regular Rate, Rhythm, No Gallop, No JVD, No Murmur, Normal Peripheral Pulses Gastrointestinal: Normal Bowel Sounds, No Organomegaly, No Pulsatile Mass, Non Tender, Soft Back: Normal Inspection, No CVA Tenderness, No Vertebral Tenderness Extremity: Normal Capillary Refill, Normal Inspection, Normal Range of Motion, Non Tender, No Calf Tenderness, Pedal Edema Neurologic/Psychiatric: Alert, Oriented x3, Normal Mood/Affect, castings drafter II-XII Norm as Tested, Abnormal Gait, Motor Weakness (generalized) Skin: Normal Color, Warm/Dry Lymphatic: No Adenopathy Results/Procedures Lab Laboratory Tests 05/25/22 05:35 Patient resulted labs reviewed. FIM Transfers Therapy Code Descriptions/Definitions Functional [place] Measure: 0=Not Assessed/NA 4=Minimal Assistance 1=Total Assistance 5=Supervision or Setup 2=Maximal Assistance 6=Modified [place] 3=Moderate Assistance 7=Complete IndependenceSCALE: Activities may be completed with or without assistive devices. 8-Dcgoqjlicb-oafhhqv completes the activity by him/herself with no assistance fr om a helper. 5-Set-up or Clean-up Assistance-helper sets up or cleans up; patient completes activity. [place] assists only prior to or following the activity. 4-Supervision or Touching Assistance-helper provides verbal cues and/or touching/steadying and/or contact guard assistance as patient completes activity. Assistance may be provided throughout the activity or intermittently. 3-Partial/Moderate Assistance-helper does LESS THAN HALF the effort. [place] lifts, holds or supports trunk or limbs, but provides less than half the effort. 2-Substantial/Maximal Assistance-helper does MORE THAN HALF the effort. [place] lifts or holds trunk or limbs and provides more than half the effort. 1-Dfzrofvmc-ghvgxl does ALL the effort. Patient does none of the effort to complete the activity. Or, the assistance of 2 or more helpers is required for the patient to complete the activity. If activity was not attempted, code reason: 7-Patient Refused. 9-Not Applicable-not attempted and the patient did not perform the activity before the current illness, exacerbation or injury. 10-Not Attempted due to Environmental Limitations-(lack of equipment, weather restraints, etc.). 88-Not Attempted due to Medical Conditions or Safety Concerns. Roll Left to Right (QC): 4 Sit to Lying (QC): 3 Sit to Stand (QC): 4 Chair/Jow-tp-Veegb Xfer(QC): 4 Car Transfer (QC): 3 Gait Training Does the Patient Walk?: Yes Walk 10 feet (QC): 4 Walk 50 ft with 2 Turns(QC): 88 Walk 150 ft (QC): 88 Walking 10ft/uneven surface-QC: 4 Gait Assistive Device: FWW Wheelchair Training Does the Pt Use a Wheelchair?: Yes Distance: 20' Wheel 50 ft with 2 turns (QC): 88 Wheel 150 ft (QC): 88 Type of Wheelchair: Manual Stair Training 1 Step (curb) (QC): 88 4 Steps (QC): 88 12 Steps (QC): 88 Balance Picking up an Object (QC): 4 (CGA using a sand analyst.) ADL-Treatment Eating (QC): 5 Oral Hygiene (QC): 5 Shower/Bathe Self (QC): 4 (SBA sponge bath seated on BSC) Upper Body Dressing (QC): 4 (SBA) Lower Body Dressing (QC): 3 (Dimitri threading RLE) On/Off Footwear (QC): 3 (Min A with R gripper sock donning/doffing. Pt able to complete L gripper sock.) Toileting Hygiene (QC): 4 (CGA) Assessment/Plan Assessment and Plan Assess & Plan/Chief Complaint Assessment: Cardiogenic shock Debility LUIS Liver shock AF PAF s/p RVR Liver shock s/p E coli severe sepsis UTI Hypoxia Volume overload HTN OOC Bradycardia Pacemaker Plan: Monitor creat Monitor CHF Monitor O2 Completed abx 05/25/2022: Avelina Haddad for I/O's Appreciate Dr Oneil (1) Cardiogenic shock Status: Resolved (2) Septic shock Status: Resolved (3) Splenic cyst Status: Acute (4) Hypercalcemia Status: Acute (5) ATN (acute tubular necrosis) Status: Acute (6) Gilbert syndrome Status: Chronic (7) Lactic acidosis Status: Resolved Resolution Date/Time: 05/19/22 @ 19:07 (8) E. coli UTI Status: Acute (9) Shock liver Status: Acute (10) Unconjugated hyperbilirubinemia Status: Acute (11) Acute on chronic HFrEF (heart failure with reduced ejection fraction) Status: Acute (12) NSTEMI (non-ST elevation myocardial infarction) Status: Acute (13) Paroxysmal atrial fibrillation with RVR (14) Vomiting in adult Status: Acute ANNEL ESTES DO May 25, 2022 06:21
--- NOTE | 2022-05-25 06:21 | Individualized Plan of Care ---
Individualized Plan of Care Rehab Nursing IPOC Order Admission Date May 24, 2022 at 09:15 Current Orders Orders Admission Arrival Bed Request (05/24/22 09:15) Admission Order(Inpt,Obs,Sdc) (05/24/22 09:35) Vital Signs: Per Unit Policy ( 08,16,00 (05/24/22 09:35) Austin Tucker ,21 (05/24/22 09:35) Sequential Compression Device (05/24/22 09:35) Superintendent [employer]-Inpt Rehab Con (05/24/22 09:35) Rehab Nursing Orders-Ipoc (05/24/22 09:35) Physical Therapy Rehab Orders (05/24/22 09:35) Occupational Therapy Rehab Ord (05/24/22 09:35) Speech Therapy Rehab Orders (05/24/22 09:35) Cbc With Automated Diff (05/25/22 06:00) Comprehensive Metabolic Panel (05/25/22 06:00) Precautions (Aru) (05/24/22 09:35) Weekly Weight WEEK (05/24/22 09:35) Rehab-Intensity Of Therapy (05/24/22 09:35) Initiate Admission Nursing Pro .admission (05/24/22 09:35) Alprazolam Tablet (Xanax Tablet) (05/24/22 09:45) Calcium Carbonate Chew Tablet (Antacid C (05/24/22 09:45) Diphenhydramine Tablet (Benadryl Tablet) (05/24/22 09:45) Docusate Sodium Capsule (Colace Capsule) (05/24/22 21:00) Docusate Sodium Capsule (Colace Capsule) (05/24/22 09:45) Bisacodyl Suppository (Dulcolax Supposit (05/24/22 09:45) Lactulose Oral Solution (Enulose Oral So (05/24/22 09:45) Na Phos/Na Biphos Enema (Fleet Enema Marcellus (05/24/22 09:45) Loperamide Tablet (Imodium Tablet) (05/24/22 09:45) Melatonin Tablet (Melatonin Tablet) (05/24/22 09:45) Polyethylene Glycol Powder Pkt (Miralax (05/24/22 21:00) Ondansetron Oral Dissolve Tab (Zofran (05/24/22 09:45) Senna S Tablet (Senokot S Tablet) (05/24/22 21:00) Acetaminophen Tablet/Caplet (Tylenol T (05/24/22 09:45) Initiate Admission Nursing Pro .admission (05/24/22 09:35) Sodium 2g (2000 Mg) (05/24/22 Lunch) Patient Visit (05/24/22 ) Speech Sound Lang Comp (05/24/22 ) Treat. Speech/Lang/Voice (05/24/22 ) Consult Cardiology (05/24/22 11:42) Code/Resuscitation (05/24/22 11:49) Initiate Admission Nursing Pro .admission (05/24/22 11:49) Apixaban Tablet (Eliquis Tablet) (05/24/22 21:00) Docusate Sodium Capsule (Colace Capsule) (05/24/22 21:00) Bisacodyl Suppository (Dulcolax Supposit (05/24/22 12:00) Melatonin Tablet (Melatonin Tablet) (05/24/22 12:00) Magnesium Hydroxide Oral Susp (Mom Oral (05/24/22 12:00) Polyethylene Glycol Powder Pkt (Miralax (05/24/22 12:00) Antacid Suspension (Mylanta Suspension (05/24/22 12:00) Ns Iv 500 Ml (Sodium Chloride 0.9%) (05/24/22 12:00) Ceftriaxone (Rocephin) (05/24/22 12:00) Sennosides Tablet (Senokot Tablet) (05/24/22 21:00) Calcium Carbonate Chew Tablet (Antacid C (05/24/22 12:00) Acetaminophen Tablet/Caplet (Tylenol T (05/24/22 12:00) Ondansetron Injection (Zofran Injectio (05/24/22 12:00) Ondansetron Oral Dissolve Tab (Zofran (05/24/22 12:00) Carvedilol Tablet (Coreg Tablet) (05/24/22 21:00) Consult Cardiology (05/24/22 11:49) Telemetry (05/24/22 13:14) Telemetry Nursing Assessment ( (05/24/22 13:14) Patient Visit (05/24/22 ) Pt Eval Moderate Complexity (05/24/22 ) Functional Activities, Ea 15 (05/24/22 ) Furosemide Injection (Lasix Injection) (05/24/22 18:30) Amlodipine Tablet (Norvasc Tablet) (05/24/22 18:30) Amlodipine Tablet (Norvasc Tablet) (05/25/22 09:00) Doxazosin Tablet (Cardura Tablet) (05/24/22 21:00) Doxazosin Tablet (Cardura Tablet) (05/24/22 21:00) Saline Nasal [place] ([place] Nasal [place]) (05/25/22 09:00) Patient Visit (05/25/22 ) Exercise Therap, Ea 15 Min (05/25/22 ) Functional Activities, Ea 15 (05/25/22 ) Gait Training, Ea 15 Min (05/25/22 ) Rehab Nursing Orders: Ongoing Assess. of Cognitive Status, Ongoing Assess. of Function Status, Bladder Management, Bladder Scan, Bladder Training, Bowel Management, Bowel Training, Disease Management & Educaiton, DVT Prophylaxis, Fall Prevention, Fluid/Electrolyte/Nutrition Mgmt, Infection Prevention, Medication Management & Education, Management of Risks & Complications, Nutr ition Management, Pain Management, Patient/Family Support, Safety Management, Swallow Precautions Intensity of Therapy to be met Patient to be seen: Min.3h per day/5 of 7d PT IPOC Problem List: Activity Tolerance, Functional Strength, Safety, Balance, Gait, Transfer, Bed Mobility, ROM Treatment Plan: Continue Plan of Care Bed Mobility, Education, Functional Activity Jamir, Functional Strength, Group Therapy, Gait, Safety, Therapeutic Exercise, Transfers Treatment Duration: Jun 07, 2022 Frequency: At least 5 of 7 days/Wk (IRF) Estimated Hrs Per Day: 1.5 hours per day OT IPOC Problems: Decreased Activ Tolerance OT Treatment, Training and Edu: Yes Plan of Care: ADL Retraining, Functional Mobility, Group Exercise/Act as Ind, UE Funct Exercise/Act, OTHER (edema management UEs) Treatment Duration: Jun 17, 2022 Frequency: At least 5 of 7 days/Wk (IRF) Estimated Hrs Per Day: 1.[address] IPOC Speech Therapy Treatment Plan: Discontinue ST Treatment Duration: May 24, 2022 Frequency: 1 time per week Estimated Hrs Per Day: .5 hour per day [employer]/Case Mgmt Superintendent [employer]/Case Managemen: Discharge Planning Dietitian/Pallet Rectifier Dietitian/Pallet Rectifier to monitor nutritional status and make changes and/or recommendations as needed and work with speech pathology on dietary upgrades as the occur. Physician IPOC Medical Issues being managed closely and that require the 24 hour availability of a physician: Recent cardiogenic and septic shock will require close monitoring of LUIS creatinine and elevated BP and third spacing of fluids in order to prevent decompensation Medical Issues: Bowel/Bladder Function, DVT Prophylaxis, Falls Precautions, Fluid/Electrolyte/Nutrition Balance, Infection Protection, Pain Management Brief Synthesis of Preadmission Screen, Post-Admission Evaluation, and Therapy Evaluations: PT OT will assist patient in slow recovery with slow therapy sessions in order to build stamina and strength while increasing confidence in order to return home to independent living Medical Prognosis: Fair Anticipated Length of Stay: 10 days ANNEL ESTES DO May 25, 2022 06:21
[2022-05-25 07:35] VITALS: BP 168/77
[2022-05-25] MEDS: APIXABAN 5 MG (ELIQUIS) TABLET PO SCH ×2 (08:24→20:55)
[2022-05-25] MEDS: amLODIPine 10 MG (NORVASC) TAB PO SCH (08:24)
--- NOTE | 2022-05-25 09:19 | Occupational Ther Daily Note ---
OT Current Status-Daily Note Subjective Pt alert, sitting in recliner. Pt agrees to therapy. Co-treat with PT (1000- 1030), skills of 2 clinician required due to increased BP and fatigue, decreased mobility due to dizziness while increasing functional tasks and decreasing fall risk. PT focusing on mobility, safety and B LE strengthening while OT focusing on ADLs, safety and decreasing edema. Mental Status/Objective Patient Orientation: Person, Place, Time, Situation Attachments: Haddad Catheter, Telemetry ADL-Treatment After supplies gathered pt able to complete own oral care by self. Discussed pt's B LE and L UE edema. B LE's wrapped with NIRALI wrap, L edema glove and Tubigrip placed on pt's L forearm to decrease edema. Pt instructed to let someone know immediately if dressings were causing discomfort or pain. Pt continued to have bloody nose during session and c/o dizziness. Session completed with pt's sitting in recliner with feet elevated. After session, pt sitting in recliner with call light/phone in reach. All needs met in room. Therapy Code Descriptions/Definitions Functional [place] Measure: 0=Not Assessed/NA 4=Minimal Assistance 1=Total Assistance 5=Supervision or Setup 2=Maximal Assistance 6=Modified [place] 3=Moderate Assistance 7=Complete IndependenceSCALE: Activities may be completed with or without assistive devices. 3-Onbtqcvnfg-obwdnzv completes the activity by him/herself with no assistance from a helper. 5-Set-up or Clean-up Assistance-helper sets up or cleans up; patient completes activity. [place] assists only prior to or following the activity. 4-Supervision or Touching Assistance-helper provides verbal cues and/or touching/steadying and/or contact guard assistance as patient completes activity. Assistance may be provided throughout the activity or intermittently. 3-Partial/Moderate Assistance-helper does LESS THAN HALF the effort. [place] lifts, holds or supports trunk or limbs, but provides less than half the effort. 2-Substantial/Maximal Assistance-helper does MORE THAN HALF the effort. [place] lifts or holds trunk or limbs and provides more than half the effort. 6-Dduceeetl-ojdrkh does ALL the effort. Patient does none of the effort to complete the activity. Or, the assistance of 2 or more helpers is required for the patient to complete the activity. If activity was not attempted, code reason: 7-Patient Refused. 9-Not Applicable-not attempted and the patient did not perform the activity before the current illness, exacerbation or injury. 10-Not Attempted due to Environmental Limitations-(lack of equipment, weather restraints, etc.). 88-Not Attempted due to Medical Conditions or Safety Concerns. Oral Hygiene (QC): 5 OT Short Term Goals Short Term Goals Time Frame: Jun 08, 2022 Shower/bathe self: 5 Upper body dressin Lower body dressin Putting on/taking off footwear: 5 OT Outsole Paraffiner Goals Outsole Paraffiner Goals Time Frame: Jun 17, 2022 Acute change in mental status: 0 Inattention: 0 Disorganized thinkin Altered level of consciousness: 0 Eating (QC): 6 Oral Hygiene (QC): 6 Toileting Hygiene (QC): 6 Shower/Bathe Self (QC): 6 Upper Body Dressing (QC): 6 Lower Body Dressing (QC): 6 On/Off Footwear (QC): 6 Additional Goals: 1-Demonstrate ADL Tasks, 2-Verbalize Understanding, 3-Im proveStrength/Jamir 1=Demonstrate adherence to instructed precautions during ADL tasks. 2=Patient will verbalize/demonstrate understanding of assistive devices/modifications for ADL. 3=Patient will improve strength/tolerance for activity to enable patient to perform ADL's. OT Education/Plan Problem List/Assessment Assessment: Decreased Activ Tolerance, Impaired Self-Care Skills Discharge Recommendations Plan/Recommendations: Continue POC Treatment Plan/Plan of Care Patient would benefit from OT for education, treatment and training to promote independence in ADL's, mobility, safety and/or upper extremity function for ADL's. Plan of Care: ADL Retraining, Functional Mobility, Group Exercise/Act as Ind, UE Funct Exercise/Act, OTHER (edema management UEs) Treatment Duration: Jun 17, 2022 Frequency: At least 5 of 7 days/Wk (IRF) Estimated Hrs Per Day: 1.5 hours per day Agreement: Yes Rehab Potential: Fair Time Start Time: 09:00 Stop Time: 10:00 DATE: May 25, 2022 Total Time Billed (hr/min): 60 Billed Treatment Time 1 visit-ADL 2 (30 min) FA 2 (30 min) co-treat with PT [id number], individual [id number] DEVORAH ELKINS May 25, 2022 09:19
--- NOTE | 2022-05-25 09:29 | Physical Therapy Daily Note ---
PT Daily Note-Current Subjective Pt. agreeable to rx but c/o dizziness and has nose bleed during Rx requiring many stops and checks etc. Pain c/o in right knee and hip at 7/10 during movement and exercise and during attempts at BP checks in right ankle Pain Numeric Pain Scale: 7 Location: Right Location Body Site: Hip (and knee) Pain Description: Stabbing Section J - Health Conditions 1. Rarely or not at all 2. Occasionally 3. Frequently 4. Almost constantly 8. Unable to answer Pain Effect on Sleep: 3 Pain Interference with Therapy: 3 Pain Interference w/Day-to-Day: 3 Appearance edema U&L extr, bleeding from nose for approx 10 min,. bright red blood, incont of BM in bed Mental Status Patient Orientation: Normal For Age Attachments: Haddad Catheter, Other-See Comments (telemetry) Transfers SCALE: Activities may be completed with or without assistive devices. 3-Ycnjjcnhwr-rxtairp completes the activity by him/herself with no assistance from a helper. 5-Set-up or Clean-up Assistance-helper sets up or cleans up; patient completes activity. [place] assists only prior to or following the activity. 4-Supervision or Touching Assistance-helper provides verbal cues and/or touching/steadying and/or contact guard assistance as patient completes activity. Assistance may be provided throughout the activity or intermittently. 3-Partial/Moderate Assistance-helper does LESS THAN HALF the effort. [place] lifts, holds or supports trunk or limbs, but provides less than half the effort. 2-Substantial/Maximal Assistance-helper does MORE THAN HALF the effort. [place] lifts or holds trunk or limbs and provides more than half the effort. 2-Vatwmlgqu-kawkkh does ALL the effort. Patient does none of the effort to complete the activity. Or, the assistance of 2 or more helpers is required for the patient to complete the activity. If activity was not attempted, code reason: 7-Patient Refused. 9-Not Applicable-not attempted and the patient did not perform the activity before the current illness, exacerbation or injury. 10-Not Attempted due to Environmental Limitations-(lack of equipment, weather restraints, etc.). 88-Not Attempted due to Medical Conditions or Safety Concerns. Roll Left & Right (QC): 6 Lying to Sitting/Side of Bed(Q: 4 Sit to Stand (QC): 4 Chair/Jic-jd-Hpnml Xfer(QC): 4 rolling, scooting up in bed, sup to sit all with CGA and instruction Gait Training Does the Patient Walk?: Yes Walk 10 feet (QC): 4 Gait Persons Needed: 1 Gait Assistive Device: FWW 12 ft x 2 FWW CGA as per tolerance secondary to c/o dizziness Exercises Supine Ex: Bridging, Ankle pumps, Quad Set, Rolling, Glut sets, Lower trunk rot ation, Heel Slides, Short Arc Quads, Scooting, Hip abd/add Supine Reps: 20 Seated Therapy Exercises: Ankle pumps, Sit to stand, Long arc quads, Hip abd/add Seated Reps: 20 Treatments bed mob and ex and eventually short gait bouts, nose bleed required cool damp cloths and several times head up and down with rest to manage situation, pt. incont of BM in bed and required max assist clean up and linen etc. OT PT co Rx 30 min for coordinated monitoring of BOP and symptoms and seated ADLs, pt up in recliner after Rx with needs met. Assessment Current Status: Good Progress, Fair Progress BP supine 148/65, HR 72 sitting 232/117 HR 72 with BP cuff on ankle PT Short Term Goals Short Term Goals Time Frame: May 31, 2022 Sit to lyin (Gladys) Lying to sitting on side of be: 3 (Gladys) Sit to stand: 4 (SBA) Chair/hjg-if-lhpyo transfer: 4 (SBA) Walk 10 feet: 4 (SBA) Walk 50 feet with two turns: 4 (SBA) PT Hemodialysis Rn Goals Intermediate Goals PT Hemodialysis Rn Goals Time Frame: Jun 07, 2022 Roll Left & Right (QC): 6 Sit to Lying (QC): 4 (SBA) Lying-Sitting on Side/Bed(QC): 4 (SBA) Sit to Stand (QC): 6 Chair/Bqd-qe-Blhfv Xfer(QC): 6 Toilet Transfer (QC): 6 Car Transfer (QC): 4 (SBA) Does the Patient Walk: Yes Walk 10 feet (QC): 6 Walk 50ft with 2 Turns (QC): 6 Walk 150 ft (QC): 88 Walking 10ft on Uneven Surface: 6 1 Step (curb) (QC): 88 4 Steps (QC): 88 12 Steps (QC): 88 Picking up an Object (QC): 6 (using top dyeing machine tender) Wheel 50 feet with 2 turns (QC: 9 Wheel 150 feet: 9 PT Plan Treatment/Plan Treatment Plan: Continue Plan of Care Treatment Plan: Bed Mobility, Education, Functional Activity Jamir, Functional Strength, Group Therapy, Gait, Safety, Therapeutic Exercise, Transfers Treatment Duration: Jun 07, 2022 Frequency: At least 5 of 7 days/Wk (IRF) Estimated Hrs Per Day: 1.5 hours per day Patient and/or Family Agrees t: Yes Safety Risks/Education Patient Education: Gait Training, Transfer Techniques, Correct Positioning, Disease Process, Safety Issues Teaching Recipient: Patient Teaching Methods: Demonstration, Discussion Response to Teaching: Verbalize Understanding, Return Demonstration, Reinforcement Needed Time Time In: 800 Time Out: 930 DATE: May 25, 2022 Total Billed Treatment Time: 90 Total Billed Treatment 1,EX30m,GT15m,FA45 (PT OT co Rx 30 M) GAYLE LO CONFIGURATION MANAGEMENT ADVISOR May 25, 2022 09:29
[2022-05-25] MEDS: SENNOSIDES 8.6 MG (SENOKOT) TAB PO SCH ×2 (09:40→20:55)
[2022-05-25] MEDS: polyethylene glycoL POWDER 17 GM (MIRALAX) PACK PO SCH ×2 (09:40→20:55)
[2022-05-25] MEDS: DOCUSATE SODIUM 100 MG (COLACE) CAP PO SCH ×2 (09:40→20:55)
--- NOTE | 2022-05-25 10:06 | Progress Note - Cardiology ---
Cardiology SOAP Progress Note Subjective: Sitting up in recliner at the bedside States she is feeling good this morning No c/o CP, SOB or palpitations Reports she feels rested Objective: I&O/Vital Signs 05/26/22 05/26/22 05/27/22 19:43 20:14 07:23 Temp 36.3 36.5 Pulse 72 71 Resp 20 16 B/P (MAP) 138/63 (88) 183/69 (107) Pulse Ox 97 96 O2 Delivery Room Air Room Air Room Air 05/27/22 00:00 Intake Total 760 ml Output Total 475 ml Balance 285 ml Weight (Pounds): 230 Weight (Ounces): 0.0 Weight (Calculated Kilograms): 104.616384 Constitutional: AAO x 3, well-developed, well-nourished Respiratory: No accessory muscle use; other (fair, bilateral air entry, diminished at the bases) Cardiovascular: regular rate-rhythm, S1 and S2, systolic murmur (soft YASSINE at card base) Gastrointestional: No tender; soft; No guarding, No rebound; audible bowel sounds Extremities: other (chronic edema of the L arm); No clubbing, No cyanosis Neurologic/Psychiatric: oriented x 3, other (moves all limbs equally) Skin: No rash on exposed areas, No ulcerations on exposed areas Results/Procedures: Labs Laboratory Tests 05/26/22 09:00: Sodium Level 139, Potassium Level 4.2, Chloride Level 104, Carbon Dioxide Level 25, Anion Gap 10, Blood Urea Nitrogen 40H, Creatinine 2.84H, Estimat Glomerular Filtration Rate 17, BUN/Creatinine Ratio 14, Glucose Level 120H, Calcium Level 10.0, Corrected Calcium 10.7H, Total Bilirubin 2.2H, Aspartate Amino Transf (AST/SGOT) 40H, Alanine Aminotransferase (ALT/SGPT) 366H, Alkaline Phosphatase 99, Total Protein 5.9L, Albumin 3.1L A/P: Assessment: Shock: septic and/or cardiogenic - mild troponin elevation due to type 2 CA due to hypotension - shock now resolved; currently hypertensive Hepatitis and jaundice of undetermined etiology - managed by the [facility] Coagulopathy - due to hepatic failure and due to apixaban - improved PAF - Apixaban held during marked hepatic impairment, now resumed Chronic HFrEF due to NICM (primarily managed by her airplane flight attendant Dr Woodward in [place], [place]) - Echocardiogram of 04-08-[address] Felton showed LVEF 10-15% with severe diffu se hypokinesis. LA and RA dilated. Mod to severe AoR. Mod MR. Mod to severe TR. PASP 50-55 mmHg - She reports she had a sleep study done that was "inconclusive" - she does not use CPAP or supplemental oxygen - managed by Dr. Kirk - AICD - implanted in September 2021 at [facility] (single chamber device) - followed by Dr. Woodward - Echo on 05-17-22: LVEF 20-25%, global hypokinesis of LV, mild to mod MR, PASP 35-40 mmHg Acute renal failure - ATN due to hypotension vs hepatorenal syndrome - Cr improving, gradually HLD - statin tx H/o DVT R leg - OAC with Eliquis H/O Breast Cancer - has had a mastectomy Gen weakness - d/t prolonged critical illness Chronic lymphedema of the SUSAN Plan: * Complex management due to multiple comorbidities * Amlodipine and doxazosin for bp - which has resulted in improvement, but not well controlled - adjust doazosin dose * Continuing to hold off on increasing her beta-dai because of continued intermittently bradycardic overnight * Not suitable for NIRALI-inhib/ARB due to renal failure * Monitor labs closely JOSIE WINKLER May 25, 2022 10:06
[2022-05-25] MEDS: SALINE NASAL SPRAY (OCEAN) 45 ML BTL SCH ×4 (10:59→20:53)
--- NOTE | 2022-05-25 11:41 | Occupational Ther Daily Note ---
OT Current Status-Daily Note Subjective Up in recliner w/ edema glove and tubigrip on LUE, BUE tucked under blanket. Mental Status/Objective Patient Orientation: Person, Place, Time, Situation Attachments: Haddad Catheter, Other-See Comments Port RUE clavicle ADL-Treatment Therapy Code Descriptions/Definitions Functional [place] Measure: 0=Not Assessed/NA 4=Minimal Assistance 1=Total Assistance 5=Supervision or Setup 2=Maximal Assistance 6=Modified [place] 3=Moderate Assistance 7=Complete IndependenceSCALE: Activities may be completed with or without assistive devices. 0-Wxbxllwhsu-pjvivis completes the activity by him/herself with no assistance from a helper. 5-Set-up or Clean-up Assistance-helper sets up or cleans up; patient completes activity. [place] assists only prior to or following the activity. 4-Supervision or Touching Assistance-helper provides verbal cues and/or touching/steadying and/or contact guard assistance as patient completes activity. Assistance may be provided throughout the activity or intermittently. 3-Partial/Moderate Assistance-helper does LESS THAN HALF the effort. [place] lifts, holds or supports trunk or limbs, but provides less than half the effort. 2-Substantial/Maximal Assistance-helper does MORE THAN HALF the effort. [place] lifts or holds trunk or limbs and provides more than half the effort. 0-Prevllsns-xktuca does ALL the effort. Patient does none of the effort to complete the activity. Or, the assistance of 2 or more helpers is required for the patient to complete the activity. If activity was not attempted, code reason: 7-Patient Refused. 9-Not Applicable-not attempted and the patient did not perform the activity before the current illness, exacerbation or injury. 10-Not Attempted due to Environmental Limitations-(lack of equipment, weather restraints, etc.). 88-Not Attempted due to Medical Conditions or Safety Concerns. Other Treatment AROM to LUE, edema control modification w/ glove an tubigrip to reduce compression n crease of elbow and wrist. Position w/ 3 pillows and education for AROM/functional ROM to LUE to reduce edema Education OT Patient Education: Correct positioning, Disease process, Exercise program, Home exercise program, Progress toward Goal/Update tx plan, Purpose of tx/functional activities, Reviewed precautions, Rehab process, Safety issues Teaching Recipient: Patient Teaching Methods: Demonstration, Discussion Response to Teaching: Verbalize Understanding, Return Demonstration, Reinforcement Needed OT Short Term Goals Short Term Goals Time Frame: Jun 08, 2022 Shower/bathe self: 5 Upper body dressin Lower body dressin Putting on/taking off footwear: 5 OT Radiologic Technology Teacher Goals Radiologic Technology Teacher Goals Time Frame: Jun 17, 2022 Acute change in mental status: 0 Inattention: 0 Disorganized thinkin Altered level of consciousness: 0 Eating (QC): 6 Oral Hygiene (QC): 6 Toileting Hygiene (QC): 6 Shower/Bathe Self (QC): 6 Upper Body Dressing (QC): 6 Lower Body Dressing (QC): 6 On/Off Footwear (QC): 6 Additional Goals: 1-Demonstrate ADL Tasks, 2-Verbalize Understanding, 3- ImproveStrength/Jamir 1=Demonstrate adherence to instructed precautions during ADL tasks. 2=Patient will verbalize/demonstrate understanding of assistive devices/modifications for ADL. 3=Patient will improve strength/tolerance for activity to enable patient to perform ADL's. OT Education/Plan Problem List/Assessment Assessment: Decreased Activ Tolerance, Decreased UE Strength, Impaired Coordination, Impaired Funct Balance, Impaired Self-Care Skills, Restricted Funct UE ROM Discharge Recommendations Plan/Recommendations: Continue POC Treatment Plan/Plan of Care Treatment,Training & Education: Yes Patient would benefit from OT for education, treatment and training to promote independence in ADL's, mobility, safety and/or upper extremity function for ADL' s. Plan of Care: ADL Retraining, Functional Mobility, Group Exercise/Act as Ind, UE Funct Exercise/Act, OTHER (edema management UEs) Comment Patient remains in recliner w/ blanket, tray table and call light in reach, LUE positioned with pillows to reduce edema. All needs met Treatment Duration: Jun 17, 2022 Frequency: At least 5 of 7 days/Wk (IRF) Estimated Hrs Per Day: 1.5 hours per day Agreement: Yes Rehab Potential: Fair Time Start Time: 11:00 Stop Time: 11:32 DATE: May 25, 2022 Total Time Billed (hr/min): 32 Billed Treatment Time 1 visit, EX 2 32 min EDITH HERNÁNDEZ OT May 25, 2022 11:41
--- NOTE | 2022-05-25 12:33 | Progress Note - Cardiology ---
Cardiology SOAP Progress Note Subjective: Gen weakness and malaise Some shortness of breath with activity No cp or palp or syncope] Chronic bilat leg and L upper ext swelling No n/v/d Objective: I&O/Vital Signs 05/25/22 05/25/22 05/25/22 05/25/22 01:00 05:44 07:35 07:36 Temp 36.3 Pulse 69 104 61 Resp 20 B/P (MAP) 146/65 (92) 168/77 (107) Pulse Ox 93 O2 Delivery Room Air 05/25/22 05/25/22 05/25/22 07:40 07:56 09:00 Pulse 40 67 Pulse Ox 98 O2 Delivery Room Air 05/25/22 00:00 Intake Total 800 ml Output Total 750 ml Balance 50 ml Weight (Pounds): 230 Weight (Ounces): 0.0 Weight (Calculated Kilograms): 104.886550 Constitutional: AAO x 3, well-developed, well-nourished Respiratory: No accessory muscle use; other (fair, bilateral air entry, diminished at the bases) Cardiovascular: regular rate-rhythm, S1 and S2, systolic murmur (soft YASSINE at card base) Gastrointestional: No tender; soft; No guarding, No rebound; audible bowel sounds Extremities: other (chronic edema of the L arm); No clubbing, No cyanosis Neurologic/Psychiatric: oriented x 3, other (moves all limbs equally) Skin: No rash on exposed areas, No ulcerations on exposed areas Results/Procedures: Labs Laboratory Tests 05/25/22 05:35: White Blood Count 6.4, Red Blood Count 3.43L, Hemoglobin 9.7L, Hematocrit 30L, Mean Corpuscular Volume 88, Mean Corpuscular Hemoglobin 28, Mean Corpuscular Hemoglobin Concent 32, Red Cell Distribution Width 18.1H, Platelet Count 135, Mean Platelet Volume 10.4, Immature Granulocyte % (Auto) 1, Neutrophils (%) (Auto) 67, Lymphocytes (%) (Auto) 14, Monocytes (%) (Auto) 13H, Eosinophils (%) (Auto) 5, Basophils (%) (Auto) 1, Neutrophils # (Auto) 4.3, Lymphocytes # (Auto) 0.9L, Monocytes # (Auto) 0.8, Eosinophils # (Auto) 0.3, Basophils # (Auto) 0.1, Immature Granulocyte # (Auto) 0.1, Sodium Level 140, Potassium Level 3.9, Chloride Level 104, Carbon Dioxide Level 25, Anion Gap 11, Blood Urea Nitrogen 44H, Creatinine 3.04H, Estimat Glomerular Filtration Rate 16, BUN/Creatinine Ratio 14, Glucose Level 87, Calcium Level 10.1, Corrected Calcium 11.1H, Total Bilirubin 2.3H, Aspartate Amino Transf (AST/SGOT) 45H, Alanine Aminotransferase (ALT/SGPT) 466H, Alkaline Phosphatase 90, Total Protein 5.3L, Albumin 2.8L Laboratory Tests 05/25/22 05:35 A/P: Assessment: Shock: septic and/or cardiogenic - mild troponin elevation due to type 2 [place] due to hypotension - shock now resolved; currently hypertensive Hepatitis and jaundice of undetermined etiology - managed by the [facility] sv[facility] Coagulopathy - due to hepatic failure and due to apixaban - improved PAF - Apixaban held during marked hepatic impairment, now resumed Chronic HFrEF due to NICM (primarily managed by her typewriters functional tester Dr Woodward in [place], [place]) - Echocardiogram of 04-08-[address] Felton showed LVEF 10-15% with severe diffuse hypokinesis. LA and RA dilated. Mod to severe AoR. Mod MR. Mod to severe TR. PASP 50-55 mmHg - She reports she had a sleep study done that was "inconclusive" - she does not use CPAP or supplemental oxygen - managed by Dr. Kirk - AICD - implanted in September 2021 at [facility] (single chamber device) - followed by Dr. Woodward - Echo on 05-17-22: LVEF 20-25%, global hypokinesis of LV, mild to mod MR, PASP 35-40 mmHg Acute renal failure - ATN due to hypotension vs hepatorenal syndrome - Cr improving, gradually HLD - statin tx H/o DVT R leg - OAC with Eliquis H/O Breast Cancer - has had a mastectomy Gen weakness - d/t prolonged critical illness Chronic lymphedema of the SUSAN Plan: * Complex management due to multiple comorbidities * Amlodipine and doxazosin for bp - which has resulted in improvement, but not well controlled - adjust doazosin dose * Continuing to hold off on increasing her beta-dai because of continued intermittently bradycardic overnight * Not suitable for NIRALI-inhib/ARB due to renal failure * Monitor labs closely CHAU POPE MD [facility] May 25, 2022 12:33
[2022-05-25 20:30] VITALS: BP 173/74
--- NOTE | 2022-05-26 06:09 | PM&R Progress Note ---
Subjective HPI/CC On Admission Date Seen by Provider: May 26, 2022 Time Seen by Provider: 12:00 Subjective/Events-last exam 05/26/2022: Improved status Very debilitated Labs improved Lasix improved edema Remains with Haddad Incontinence normally 05/25/2022: Slow moving today Labs reviewed Appreciate Dr Lundberg direction on bradycardia and HTN Labs reviewed Haddad cath in place Lasix given Third-spacing of fluid noted Nosebleeds so will initiate saline spray Review of Systems General: Fatigue, Malaise Cardiovascular: Edema Genitourinary: Incontinence Objective Exam Vital Signs Vital Signs Date Time Temp Pulse Resp B/P (MAP) Pulse Ox O2 Delivery O2 Flow Rate FiO2 05/26/22 20:14 Room Air 05/26/22 19:43 36.3 72 20 138/63 (88) 97 Capillary Refill : General Appearance: No Apparent Distress, WD/WN, Chronically ill, Obese HEENT: PERRL/EOMI, Normal ENT Inspection, Pharynx Normal Neck: Full Range of Motion, Normal Inspection, Non Tender, Supple, Carotid Bruit Respiratory: Chest Non Tender, Lungs Clear, No Accessory Muscle Use, No Respiratory Distress, Decreased Breath Sounds Cardiovascular: Regular Rate, Rhythm, No Gallop, No JVD, No Murmur, Normal Peripheral Pulses Gastrointestinal: Normal Bowel Sounds, No Organomegaly, No Pulsatile Mass, Non Tender, Soft Back: Normal Inspection, No CVA Tenderness, No Vertebral Tenderness Extremity: Normal Capillary Refill, Normal Inspection, Normal Range of Motion, Non Tender, No Calf Tenderness, Pedal Edema Neurologic/Psychiatric: Alert, Oriented x3, Normal Mood/Affect, billet cutter II-XII Norm as Tested, Abnormal Gait, Motor Weakness (generalized) Skin: Normal Color, Warm/Dry Lymphatic: No Adenopathy Results/Procedures Lab Laboratory Tests 05/26/22 09:00 Patient resulted labs reviewed. FIM Transfers Therapy Code Descriptions/Definitions Functional [place] Measure: 0=Not Assessed/NA 4=Minimal Assistance 1=Total Assistance 5=Supervision or Setup 2=Maximal Assistance 6=Modified [place] 3=Moderate Assistance 7=Complete IndependenceSCALE: Activities may be completed with or without assistive devices. 8-Jkiigwymuc-hqkbrqe completes the activity by him/herself with no assistance from a helper. 5-Set-up or Clean-up Assistance-helper sets up or cleans up; patient completes activity. [place] assists only prior to or following the activity. 4-Supervision or Touching Assistance-helper provides verbal cues and/or touching/steadying and/or contact guard assistance as patient completes a ctivity. Assistance may be provided throughout the activity or intermittently. 3-Partial/Moderate Assistance-helper does LESS THAN HALF the effort. [place] lifts, holds or supports trunk or limbs, but provides less than half the effort. 2-Substantial/Maximal Assistance-helper does MORE THAN HALF the effort. [place] lifts or holds trunk or limbs and provides more than half the effort. 3-Mivmqnuib-prtewn does ALL the effort. Patient does none of the effort to complete the activity. Or, the assistance of 2 or more helpers is required for the patient to complete the activity. If activity was not attempted, code reason: 7-Patient Refused. 9-Not Applicable-not attempted and the patient did not perform the activity before the current illness, exacerbation or injury. 10-Not Attempted due to Environmental Limitations-(lack of equipment, weather restraints, etc.). 88-Not Attempted due to Medical Conditions or Safety Concerns. Roll Left to Right (QC): 6 Sit to Lying (QC): 3 Sit to Stand (QC): 4 Chair/Dti-uh-Lsfag Xfer(QC): 4 Car Transfer (QC): 3 Gait Training Does the Patient Walk?: Yes Walk 10 feet (QC): 4 Walk 50 ft with 2 Turns(QC): 88 Walk 150 ft (QC): 88 Walking 10ft/uneven surface-QC: 4 Gait Persons Needed: 1 Gait Assistive Device: FWW Wheelchair Training Does the Pt Use a Wheelchair?: Yes Distance: 20' Wheel 50 ft with 2 turns (QC): 88 Wheel 150 ft (QC): 88 Type of Wheelchair: Manual Stair Training 1 Step (curb) (QC): 88 4 Steps (QC): 88 12 Steps (QC): 88 Balance Picking up an Object (QC): 4 (CGA using a short range air defense artillery.) ADL-Treatment Eating (QC): 5 Oral Hygiene (QC): 5 Shower/Bathe Self (QC): 4 (SBA sponge bath seated on BSC) Upper Body Dressing (QC): 4 (SBA) Lower Body Dressing (QC): 3 (Dimitri threading RLE) On/Off Footwear (QC): 3 (Min A with R gripper sock donning/doffing. Pt able to complete L gripper sock.) Toileting Hygiene (QC): 4 (CGA) Assessment/Plan Assessment and Plan Assess & Plan/Chief Complaint Assessment: Cardiogenic shock Debility LUIS Liver shock AF PAF s/p RVR Liver shock s/p E coli severe sepsis UTI Hypoxia Volume overload HTN OOC Bradycardia Pacemaker Epistaxis Plan: Monitor creat Monitor CHF Monitor O2 Completed abx 05/25/2022: Avelina Haddad for I/O's Appreciate Dr Lundberg 05/26/2022: Diuresis Monitor closely (1) Cardiogenic shock Status: Resolved (2) Septic shock Status: Resolved (3) Splenic cyst Status: Acute (4) Hypercalcemia Status: Acute (5) ATN (acute tubular necrosis) Status: Acute (6) Gilbert syndrome Status: Chronic (7) Lactic acidosis Status: Resolved Resolution Date/Time: 05/19/22 @ 19:07 (8) E. coli UTI Status: Acute (9) Shock liver Status: Acute (10) Unconjugated hyperbilirubinemia Status: Acute (11) Acute on chronic HFrEF (heart failure with reduced ejection fraction) Status: Acute (12) NSTEMI (non-ST elevation myocardial infarction) Status: Acute (13) Paroxysmal atrial fibrillation with RVR (14) Vomiting in adult Status: Acute ANNEL ESTES DO May 26, 2022 06:09
[2022-05-26] MEDS: doxAzosin 2 MG (CARDURA) TAB PO SCH (07:01)
[2022-05-26 07:48] VITALS: BP 193/84
[2022-05-26] MEDS: SALINE NASAL SPRAY (OCEAN) 45 ML BTL SCH ×4 (07:52→19:46)
[2022-05-26] MEDS: APIXABAN 5 MG (ELIQUIS) TABLET PO SCH ×2 (07:53→19:45)
[2022-05-26] MEDS: amLODIPine 10 MG (NORVASC) TAB PO SCH (07:53)
[2022-05-26] MEDS: polyethylene glycoL POWDER 17 GM (MIRALAX) PACK PO SCH ×2 (07:54→19:19)
[2022-05-26] MEDS: DOCUSATE SODIUM 100 MG (COLACE) CAP PO SCH ×2 (07:54→19:19)
[2022-05-26] MEDS: SENNOSIDES 8.6 MG (SENOKOT) TAB PO SCH ×2 (07:54→19:19)
[2022-05-26] MEDS ORDERED: doxAzosin 2 MG (CARDURA) TAB PO NR (08:00)
--- NOTE | 2022-05-26 09:05 | Occupational Ther Daily Note ---
OT Current Status-Daily Note Subjective Pt in bed, c/o dizziness, and reports high BP this AM. BP taken at start of tx, 137/62 L ankle Mental Status/Objective Attachments: Haddad Catheter ADL-Treatment Therapy Code Descriptions/Definitions Functional [place] Measure: 0=Not Assessed/NA 4=Minimal Assistance 1=Total Assistance 5=Supervision or Setup 2=Maximal Assistance 6=Modified [place] 3=Moderate Assistance 7=Complete IndependenceSCALE: Activities may be completed with or without assistive devices. 2-Lnkpbmjxpm-szxhghd completes the activity by him/herself with no assistance from a helper. 5-Set-up or Clean-up Assistance-helper sets up or cleans up; patient completes activity. [place] assists only prior to or following the activity. 4-Supervision or Touching Assistance-helper provides verbal cues and/or touching/steadying and/or contact guard assistance as patient completes activity. Assistance may be provided throughout the activity or intermittently. 3-Partial/Moderate Assistance-helper does LESS THAN HALF the effort. [place] lifts, holds or supports trunk or limbs, but provides less than half the effort. 2-Substantial/Maximal Assistance-helper does MORE THAN HALF the effort. [place] lifts or holds trunk or limbs and provides more than half the effort. 3-Ezdjndvwe-qztumg does ALL the effort. Patient does none of the effort to complete the activity. Or, the assistance of 2 or more helpers is required for the patient to complete the activity. If activity was not attempted, code reason: 7-Patient Refused. 9-Not Applicable-not attempted and the patient did not perform the activity before the current illness, exacerbation or injury. 10-Not Attempted due to Environmental Limitations-(lack of equipment, weather restraints, etc.). 88-Not Attempted due to Medical Conditions or Safety Concerns. Lower Body Dressing (QC): 4 (SBA) Toileting Hygiene (QC): 3 (Assistance with posterior hygiene after incontinent episode of bowel) Toilet Transfer (QC): 4 (SBA on/off BSC.) Other Treatment Pt in bed, agreeable to OT tx. Pt c/o dizziness and fatigue, feels "sluggish" today. Pt states incontinent of bowel at bed level, doesn't feel like she can make it into bathroom. BSC brought to bedside. Pt transferred supine to sit EOB without assistance, then transferred to BSC using FWW, SBA. Pt completed toileting, requiring assistance for posterior hygiene after incontinent episode. Pt donned brief with SBA. After toileting, [place] [facility] [place] [facility]. Post tx, pt in recliner, call light in reach and all needs met. Education OT Patient Education: Correct positioning, Energy conservation, Modified ADL techniques, Progress toward Goal/Update tx plan, Purpose of tx/functional activities, Rehab process Teaching Recipient: Patient Teaching Methods: Discussion Response to Teaching: Verbalize Understanding OT Short Term Goals Short Term Goals Time Frame: Jun 08, 2022 Shower/bathe self: 5 Upper body dressin Lower body dressin Putting on/taking off footwear: 5 OT Half-Way Goals Regional Maintenance Manager Goals Time Frame: Jun 17, 2022 Acute change in mental status: 0 Inattention: 0 Disorganized thinkin Altered level of consciousness: 0 Eating (QC): 6 Oral Hygiene (QC): 6 Toileting Hygiene (QC): 6 Shower/Bathe Self (QC): 6 Upper Body Dressing (QC): 6 Lower Body Dressing (QC): 6 On/Off Footwear (QC): 6 Additional Goals: 1-Demonstrate ADL Tasks, 2-Verbalize Understanding, 3- ImproveStrength/Jamir 1=Demonstrate adherence to instructed precautions during ADL tasks. 2=Patient will verbalize/demonstrate understanding of assistive devices/modifications for ADL. 3=Patient will improve strength/tolerance for activity to enable patient to perform ADL's. OT Education/Plan Problem List/Assessment Assessment: Decreased Activ Tolerance, Decreased UE Strength, Impaired I ADL's Discharge Recommendations Plan/Recommendations: Continue POC Treatment Plan/Plan of Care Patient would benefit from OT for education, treatment and training to promote independence in ADL's, mobility, safety and/or upper extremity function for ADL's. Plan of Care: ADL Retraining, Functional Mobility, Group Exercise/Act as Ind, UE Funct Exercise/Act, OTHER (edema management UEs) Treatment Duration: Jun 17, 2022 Frequency: At least 5 of 7 days/Wk (IRF) Estimated Hrs Per Day: 1.5 hours per day Agreement: Yes Rehab Potential: Fair Time Start Time: 08:15 Stop Time: 09:00 DATE: May 26, 2022 Total Time Billed (hr/min): 45 Billed Treatment Time 1, ADL 3 SAMI CANTRELL OT May 26, 2022 09:05
--- NOTE | 2022-05-26 09:33 | Progress Note - Cardiology ---
Cardiology SOAP Progress Note Subjective: Sitting up in a chair No c/o CP SOB improving Objective: I&O/Vital Signs 05/26/22 05/26/22 05/27/22 19:43 20:14 07:23 Temp 36.3 36.5 Pulse 72 71 Resp 20 16 B/P (MAP) 138/63 (88) 183/69 (107) Pulse Ox 97 96 O2 Delivery Room Air Room Air Room Air 05/27/22 00:00 Intake Total 760 ml Output Total 475 ml Balance 285 ml Weight (Pounds): 230 Weight (Ounces): 0.0 Weight (Calculated Kilograms): 104.055939 Constitutional: AAO x 3, well-developed, well-nourished Respiratory: No accessory muscle use; other (fair, bilateral air entry, diminished at the bases) Cardiovascular: regular rate-rhythm, S1 and S2, systolic murmur (soft YASSINE at card base) Gastrointestional: No tender; soft; No guarding, No rebound; audible bowel sounds Extremities: other (chronic edema of the L arm); No clubbing, No cyanosis Neurologic/Psychiatric: oriented x 3, other (moves all limbs equally) Skin: No rash on exposed areas, No ulcerations on exposed areas Results/Procedures: Labs Laboratory Tests 05/26/22 09:00: Sodium Level 139, Potassium Level 4.2, Chloride Level 104, Carbon Dioxide Level 25, Anion Gap 10, Blood Urea Nitrogen 40H, Creatinine 2.84H, Estimat Glomerular Filtration Rate 17, BUN/Creatinine Ratio 14, Glucose Level 120H, Calcium Level 10.0, Corrected Calcium 10.7H, Total Bilirubin 2.2H, Aspartate Amino Transf (AST/SGOT) 40H, Alanine Aminotransferase (ALT/SGPT) 366H, Alkaline Phosphatase 99, Total Protein 5.9L, Albumin 3.1L A/P: Assessment: Shock: septic and/or cardiogenic - mild troponin elevation due to type 2 [place] due to hypotension - shock now resolved; currently hypertensive Hepatitis and jaundice of undetermined etiology - managed by the [facility] [place] Coagulopathy - due to hepatic failure and due to apixaban - improved PAF - Apixaban held during marked hepatic impairment, now resumed Chronic HFrEF due to NICM (primarily managed by her membership sales advisor Dr Woodward in [place], [place]) - Echocardiogram of 04-08-[address] Felton showed LVEF 10-15% with severe diffuse hypokinesis. LA and RA dilated. Mod to severe AoR. Mod MR. Mod to severe TR. PASP 50-55 mmHg - She reports she had a sleep study done that was "inconclusive" - she does not use CPAP or supplemental oxygen - managed by Dr. Kirk - AICD - implanted in September 2021 at [facility] (single chamber device) - followed by Dr. Woodward - Echo on 05-17-22: LVEF 20-25%, global hypokinesis of LV, mild to mod MR, PASP 35-40 mmHg Acute renal failure - ATN due to hypotension vs hepatorenal syndrome - Cr improving, gradually HLD - statin tx H/o DVT R leg - OAC with Eliquis H/O Breast Cancer - has had a mastectomy Gen weakness - d/t prolonged critical illness Chronic lymphedema of the SUSAN Plan: * Complex management due to multiple comorbidities * Amlodipine and doxazosin for bp - which has resulted in improvement, but not well controlled - adjust doazosin dose * Continuing to hold off on increasing her beta-dai because of continued intermittently bradycardic overnight * Not suitable for NIRALI-inhib/ARB due to renal failure * Monitor labs closely - awaiting on CMP results this morning JOSIE WINKLER May 26, 2022 09:33
[2022-05-26 09:43] VITALS: BP 193/84
[2022-05-26 09:43] LABS: ALBUMIN 3.1 GM/DL (3.2-4.5); POTASSIUM 4.2 MMOL/L (3.6-5.0)
[2022-05-26 09:46] LABS: TOTAL PROTEIN 5.9 GM/DL (6.4-8.2)
[2022-05-26 09:48] LABS: BILIRUBIN,TOTAL 2.2 MG/DL (0.1-1.0)
[2022-05-26 09:49] LABS: CREATININE SERUM 2.84 MG/DL (0.60-1.30)
--- NOTE | 2022-05-26 09:52 | Physical Therapy Daily Note ---
PT Daily Note-Current Subjective Talkative and pleasant, agrees to Rx. No c/o pain but does c/o dizziness which dissipates upon standing and also c/o some dyspnea while walking. Pain Location: No Pain Reported Section J - Health Conditions 1. Rarely or not at all 2. Occasionally 3. Frequently 4. Almost constantly 8. Unable to answer Pain Effect on Sleep: 2 Pain Interference with Therapy: 2 Pain Interference w/Day-to-Day: 2 Mental Status Patient Orientation: Normal For Age Transfers SCALE: Activities may be completed with or without assistive devices. 2-Ydvrifccnb-scdniiq completes the activity by him/herself with no assistance from a helper. 5-Set-up or Clean-up Assistance-helper sets up or cleans up; patient completes activity. [place] assists only prior to or following the activity. 4-Supervision or Touching Assistance-helper provides verbal cues and/or touching/steadying and/or contact guard assistance as patient completes activity. Assistance may be provided throughout the activity or intermittently. 3-Partial/Moderate Assistance-helper does LESS THAN HALF the effort. [place] lifts, holds or supports trunk or limbs, but provides less than half the effort. 2-Substantial/Maximal Assistance-helper does MORE THAN HALF the effort. [place] lifts or holds trunk or limbs and provides more than half the effort. 4-Lufpzsesg-ajkyme does ALL the effort. Patient does none of the effort to complete the activity. Or, the assistance of 2 or more helpers is required for the patient to complete the activity. If activity was not attempted, code reason: 7-Patient Refused. 9-Not Applicable-not attempted and the patient did not perform the activity before the current illness, exacerbation or injury. 10-Not Attempted due to Environmental Limitations-(lack of equipment, weather restraints, etc.). 88-Not Attempted due to Medical Conditions or Safety Concerns. Sit to Stand (QC): 6 Chair/Htj-ez-Ezvbu Xfer(QC): 6 Gait Training Does the Patient Walk?: Yes Walk 10 feet (QC): 4 Gait Persons Needed: 1 Gait Assistive Device: FWW pt. ambulated short bouts x 5 at 25 to 30 ft each bout with SOB coming on at the end of each bout of gait. This required sitting rest breaks each time, O2 sats 98 and 99% on room air with this activity Exercises Seated Therapy Exercises: Ankle pumps, Sit to stand Seated Reps: 15 Treatments sit to stands, gait, seated LE ex, rest breaks and monitoring of O2 Assessment Current Status: Good Progress slow, steady progress, working up to tolerating longer bouts of gait each trial. O2 sats steady >95% PT Short Term Goals Short Term Goals Time Frame: May 31, 2022 Sit to lyin (Gladys) Lying to sitting on side of be: 3 (Gladys) Sit to stand: 4 (SBA) Chair/nml-ml-ipgqk transfer: 4 (SBA) Walk 10 feet: 4 (SBA) Walk 50 feet with two turns: 4 (SBA) PT Community Service Aide Goals Assisted Goals PT Assisted Goals Time Frame: Jun 07, 2022 Roll Left & Right (QC): 6 Sit to Lying (QC): 4 (SBA) Lying-Sitting on Side/Bed(QC): 4 (SBA) Sit to Stand (QC): 6 Chair/Tdh-sj-Fbuzn Xfer(QC): 6 Toilet Transfer (QC): 6 Car Transfer (QC): 4 (SBA) Does the Patient Walk: Yes Walk 10 feet (QC): 6 Walk 50ft with 2 Turns (QC): 6 Walk 150 ft (QC): 88 Walking 10ft on Uneven Surface: 6 1 Step (curb) (QC): 88 4 Steps (QC): 88 12 Steps (QC): 88 Picking up an Object (QC): 6 (using oxygen equipment aide) Wheel 50 feet with 2 turns (QC: 9 Wheel 150 feet: 9 PT Plan Treatment/Plan Treatment Plan: Continue Plan of Care Treatment Plan: Bed Mobility, Education, Functional Activity Jamir, Functional Strength, Group Therapy, Gait, Safety, Therapeutic Exercise, Transfers Treatment Duration: Jun 07, 2022 Frequency: At least 5 of 7 days/Wk (IRF) Estimated Hrs Per Day: 1.5 hours per day Patient and/or Family Agrees t: Yes Safety Risks/Education Patient Education: Gait Training, Transfer Techniques, Correct Positioning, Safety Issues Teaching Recipient: Patient Teaching Methods: Demonstration, Discussion Response to Teaching: Verbalize Understanding, Return Demonstration, Reinforcement Needed Time Time In: 900 Time Out: 1000 DATE: May 26, 2022 Total Billed Treatment Time: 60 Total Billed Treatment 1,GT30m,FA20m,EX10m GAYLE LO DIGITAL CAMPAIGN MANAGER May 26, 2022 09:52
--- NOTE | 2022-05-26 10:41 | Progress Note - Cardiology ---
Cardiology SOAP Progress Note Subjective: Gen malaise and weakness No focal weakness Shortness of breath with exertion No cp or palp or syncope No n/v/d Objective: I&O/Vital Signs 05/26/22 05/26/22 05/26/22 07:48 09:43 09:50 Temp 36.2 36.2 Pulse 75 75 Resp 22 22 B/P (MAP) 193/84 (120) 193/84 (120) Pulse Ox 93 93 O2 Delivery Room Air Room Air Room Air 05/26/22 00:00 Intake Total 600 ml Output Total 500 ml Balance 100 ml Weight (Pounds): 230 Weight (Ounces): 0.0 Weight (Calculated Kilograms): 104.418112 Constitutional: AAO x 3, well-developed, well-nourished Respiratory: No accessory muscle use; other (fair, bilateral air entry, diminished at the bases) Cardiovascular: regular rate-rhythm, S1 and S2, systolic murmur (soft YASSINE at card base) Gastrointestional: No tender; soft; No guarding, No rebound; audible bowel sounds Extremities: other (chronic edema of the L arm); No clubbing, No cyanosis Neurologic/Psychiatric: oriented x 3, other (moves all limbs equally) Skin: No rash on exposed areas, No ulcerations on exposed areas Results/Procedures: Labs Laboratory Tests 05/26/22 09:00: Sodium Level 139, Potassium Level 4.2, Chloride Level 104, Carbon Dioxide Level 25, Anion Gap 10, Blood Urea Nitrogen 40H, Creatinine 2.84H, Estimat Glomerular Filtration Rate 17, BUN/Creatinine Ratio 14, Glucose Level 120H, Calcium Level 10.0, Corrected Calcium 10.7H, Total Bilirubin 2.2H, Aspartate Amino Transf (AST/SGOT) 40H, Alanine Aminotransferase (ALT/SGPT) 366H, Alkaline Phosphatase 99, Total Protein 5.9L, Albumin 3.1L Laboratory Tests 05/25/22 05:35 05/26/22 09:00 A/P: Assessment: Shock: septic and/or cardiogenic - mild troponin elevation due to type 2 [place] due to hypotension - shock now resolved; currently hypertensive Hepatitis and jaundice of undetermined etiology - managed by the [facility] [place] Coagulopathy - due to hepatic failure and due to apixaban - improved PAF - Apixaban held during marked hepatic impairment, now resumed Chronic HFrEF due to NICM (primarily managed by her capacitor tester Dr Woodward in [place], [place]) - Echocardiogram of 04-08-[address] Felton showed LVEF 10-15% with severe diffuse hypokinesis. LA and RA dilated. Mod to severe AoR. Mod MR. Mod to severe TR. PASP 50-55 mmHg - She reports she had a sleep study done that was "inconclusive" - she does not use CPAP or supplemental oxygen - managed by Dr. Kirk - AICD - implanted in September 2021 at [facility] (single chamber device) - followed by Dr. Woodward - Echo on 05-17-22: LVEF 20-25%, global hypokinesis of LV, mild to mod MR, PASP 35-40 mmHg Acute renal failure - ATN due to hypotension vs hepatorenal syndrome - Cr improving gradually HLD - statin tx H/o DVT R leg - OAC with Eliquis H/O Breast Cancer - has had a mastectomy Gen weakness - d/t prolonged critical illness Chronic lymphedema of the SUSAN Plan: * Complex management due to multiple comorbidities * Amlodipine and doxazosin for bp - which has resulted in improvement, but not well controlled - adjust doazosin dose * Continuing to hold off on increasing her beta-dai because of continued intermittently bradycardic overnight * Not suitable for NIRALI-inhib/ARB due to renal failure CHAU POPE MD FACP FAC CCDS May 26, 2022 10:41
--- NOTE | 2022-05-26 11:33 | Physical Therapy Daily Note ---
PT Daily Note-Current Subjective Pt. agrees to exercise. Describes her home and feels she can ambulate the distances and manage them upon return Pain Numeric Pain Scale: 4 Location: Right Location Body Site: Knee Pain Description: Ache Section J - Health Conditions 1. Rarely or not at all 2. Occasionally 3. Frequently 4. Almost constantly 8. Unable to answer Pain Effect on Sleep: 2 Pain Interference with Therapy: 2 Pain Interference w/Day-to-Day: 2 Mental Status Patient Orientation: Normal For Age Transfers SCALE: Activities may be completed with or without assistive devices. 3-Hrrcteapuh-kxlfgro completes the activity by him/herself with no assistance from a helper. 5-Set-up or Clean-up Assistance-helper sets up or cleans up; patient completes activity. Bernard assists only prior to or following the activity. 4-Supervision or Touching Assistance-helper provides verbal cues and/or touching/steadying and/or contact guard assistance as patient completes activity. Assistance may be provided throughout the activity or intermittently. 3-Partial/Moderate Assistance-helper does LESS THAN HALF the effort. Bernard lifts, holds or supports trunk or limbs, but provides less than half the effort. 2-Substantial/Maximal Assistance-helper does MORE THAN HALF the effort. Bernard lifts or holds trunk or limbs and provides more than half the effort. 0-Oztexadeh-ikcvpl does ALL the effort. Patient does none of the effort to complete the activity. Or, the assistance of 2 or more helpers is required for the patient to complete the activity. If activity was not attempted, code reason: 7-Patient Refused. 9-Not Applicable-not attempted and the patient did not perform the activity before the current illness, exacerbation or injury. 10-Not Attempted due to Environmental Limitations-(lack of equipment, weather restraints, etc.). 88-Not Attempted due to Medical Conditions or Safety Concerns. scoots up in chair and bed indep using rails etc Exercises Supine Ex: Ankle pumps, Quad Set, Glut sets, Heel Slides (asst right), Short Arc Quads, Scooting, Straight leg raise (asst right), Hip abd/add Supine Reps: 10 (x2) Treatments therex Assessment Current Status: Good Progress fatigues and has bouts of pain in arthritic right knee "bone on bone" per pt PT Short Term Goals Short Term Goals Time Frame: May 31, 2022 Sit to lyin (Gladys) Lying to sitting on side of be: 3 (Gladys) Sit to stand: 4 (SBA) Chair/hcs-gj-pswcf transfer: 4 (SBA) Walk 10 feet: 4 (SBA) Walk 50 feet with two turns: 4 (SBA) PT Nursing Home Goals Nursing Home Goals PT Nursing Home Goals Time Frame: Jun 07, 2022 Roll Left & Right (QC): 6 Sit to Lying (QC): 4 (SBA) Lying-Sitting on Side/Bed(QC): 4 (SBA) Sit to Stand (QC): 6 Chair/Vlf-sv-Yvtyr Xfer(QC): 6 Toilet Transfer (QC): 6 Car Transfer (QC): 4 (SBA) Does the Patient Walk: Yes Walk 10 feet (QC): 6 Walk 50ft with 2 Turns (QC): 6 Walk 150 ft (QC): 88 Walking 10ft on Uneven Surface: 6 1 Step (curb) (QC): 88 4 Steps (QC): 88 12 Steps (QC): 88 Picking up an Object (QC): 6 (using shale planer operator helper) Wheel 50 feet with 2 turns (QC: 9 Wheel 150 feet: 9 PT Plan Treatment/Plan Treatment Plan: Continue Plan of Care Treatment Plan: Bed Mobility, Education, Functional Activity Jamir, Functional Strength, Group Therapy, Gait, Safety, Therapeutic Exercise, Transfers Treatment Duration: Jun 07, 2022 Frequency: At least 5 of 7 days/Wk (IRF) Estimated Hrs Per Day: 1.5 hours per day Patient and/or Family Agrees t: Yes Safety Risks/Education Patient Education: Transfer Techniques, Correct Positioning Teaching Recipient: Patient Teaching Methods: Demonstration, Discussion Response to Teaching: Verbalize Understanding, Return Demonstration, Reinforcement Needed Time Time In: 1100 Time Out: 1130 DATE: May 26, 2022 Total Billed Treatment Time: 30 Total Billed Treatment 1,EX30m GAYLE LO IRON WORKER May 26, 2022 11:33
--- NOTE | 2022-05-26 12:14 | Occupational Ther Daily Note ---
OT Current Status-Daily Note Subjective Pt alert, sitting in recliner. Pt agrees to therapy though declines any out of chair activities. No c/o pain only fatigue. Mental Status/Objective Patient Orientation: Person, Place, Time, Situation ADL-Treatment Therapy Code Descriptions/Definitions Functional [place] Measure: 0=Not Assessed/NA 4=Minimal Assistance 1=Total Assistance 5=Supervision or Setup 2=Maximal Assistance 6=Modified [place] 3=Moderate Assistance 7=Complete IndependenceSCALE: Activities may be completed with or without assistive devices. 4-Lmnjgniqts-xpznunr completes the activity by him/herself with no assistance from a helper. 5-Set-up or Clean-up Assistance-helper sets up or cleans up; patient completes activity. Hinkle assists only prior to or following the activity. 4-Supervision or Touching Assistance-helper provides verbal cues and/or touching/steadying and/or contact guard assistance as patient completes activity. Assistance may be provided throughout the activity or intermittently. 3-Partial/Moderate Assistance-helper does LESS THAN HALF the effort. Hinkle lifts, holds or supports trunk or limbs, but provides less than half the effort. 2-Substantial/Maximal Assistance-helper does MORE THAN HALF the effort. Hinkle lifts or holds trunk or limbs and provides more than half the effort. 0-Qmwsnzfje-jazobw does ALL the effort. Patient does none of the effort to complete the activity. Or, the assistance of 2 or more helpers is required for the patient to complete the activity. If activity was not attempted, code reason: 7-Patient Refused. 9-Not Applicable-not attempted and the patient did not perform the activity before the current illness, exacerbation or injury. 10-Not Attempted due to Environmental Limitations-(lack of equipment, weather restraints, etc.). 88-Not Attempted due to Medical Conditions or Safety Concerns. Eating (QC): 6 Other Treatment Pt completed oral care sitting in recliner after supplies gathered. Independent with eating. Pt's L hand edema has decreased and ROM is WFL. After therapy, pt sitting in recliner eating lunch. Call light/phone in reach. All needs met in room. OT Short Term Goals Short Term Goals Time Frame: Jun 08, 2022 Shower/bathe self: 5 Upper body dressin Lower body dressin Putting on/taking off footwear: 5 OT Mcc Goals Mcc Goals Time Frame: Jun 17, 2022 Acute change in mental status: 0 Inattention: 0 Disorganized thinkin Altered level of consciousness: 0 Eating (QC): 6 Oral Hygiene (QC): 6 Toileting Hygiene (QC): 6 Shower/Bathe Self (QC): 6 Upper Body Dressing (QC): 6 Lower Body Dressing (QC): 6 On/Off Footwear (QC): 6 Additional Goals: 1-Demonstrate ADL Tasks, 2-Verbalize Understanding, 3- ImproveStrength/Jamir 1=Demonstrate adherence to instructed precautions during ADL tasks. 2=Patient will verbalize/demonstrate understanding of assistive devices/modifications for ADL. 3=Patient will improve strength/tolerance for activity to enable patient to perform ADL's. OT Education/Plan Problem List/Assessment Assessment: Decreased Activ Tolerance, Impaired Self-Care Skills Discharge Recommendations Plan/Recommendations: Continue POC Treatment Plan/Plan of Care Patient would benefit from OT for education, treatment and training to promote independence in ADL's, mobility, safety and/or upper extremity function for ADL's. Plan of Care: ADL Retraining, Functional Mobility, Group Exercise/Act as Ind, UE Funct Exercise/Act, OTHER (edema management UEs) Treatment Duration: Jun 17, 2022 Frequency: At least 5 of 7 days/Wk (IRF) Estimated Hrs Per Day: 1.5 hours per day Agreement: Yes Rehab Potential: Fair Time Start Time: 11:30 Stop Time: 12:15 DATE: May 26, 2022 Total Time Billed (hr/min): 45 Billed Treatment Time 1 visit-ADL2 (30 min) FA 1 (15 min) DEVORAH ELKINS May 26, 2022 12:14
[2022-05-26] MEDS: doxAzosin 4 MG (CARDURA) TAB PO SCH ×2 (13:43→21:09)
[2022-05-26] MEDS ORDERED: CATHETER FLUSH 10 ML SYR IVP PRN (16:45)
[2022-05-26 19:43] VITALS: BP 138/63
[2022-05-26] MEDS: MECLIZINE 25 MG (ANTIVERT) TAB PO SCH (19:45)
[2022-05-26] MEDS: CATHETER FLUSH 10 ML SYR IVP SCH (19:47)
--- NOTE | 2022-05-27 06:23 | PM&R Progress Note ---
Subjective HPI/CC On Admission Date Seen by Provider: May 27, 2022 Time Seen by Provider: 12:00 Subjective/Events-last exam 05/27/2022: Making some progress Less weak Haddad cath still in place Purewick did not work for her in the past Incontinence is disturbing for her Participation is improved 05/26/2022: Improved status Very debilitated Labs improved Lasix improved edema Remains with Haddad Incontinence normally 05/25/2022: Slow moving today Labs reviewed Appreciate Dr Lundberg direction on bradycardia and HTN Labs reviewed Haddad cath in place Lasix given Third-spacing of fluid noted Nosebleeds so will initiate saline spray Review of Systems General: Fatigue, Malaise Cardiovascular: Edema Objective Exam Vital Signs Vital Signs Date Time Temp Pulse Resp B/P (MAP) Pulse Ox O2 Delivery O2 Flow Rate FiO2 05/27/22 19:53 36.4 70 18 144/67 (92) 96 Room Air Capillary Refill : General Appearance: No Apparent Distress, WD/WN, Chronically ill, Obese HEENT: PERRL/EOMI, Normal ENT Inspection, Pharynx Normal Neck: Full Range of Motion, Normal Inspection, Non Tender, Supple, Carotid Bruit Respiratory: Chest Non Tender, Lungs Clear, No Accessory Muscle Use, No Respiratory Distress, Decreased Breath Sounds Cardiovascular: Regular Rate, Rhythm, No Gallop, No JVD, No Murmur, Normal Peripheral Pulses Gastrointestinal: Normal Bowel Sounds, No Organomegaly, No Pulsatile Mass, Non Tender, Soft Back: Normal Inspection, No CVA Tenderness, No Vertebral Tenderness Extremity: Normal Capillary Refill, Normal Inspection, Normal Range of Motion, Non Tender, No Calf Tenderness, Pedal Edema Neurologic/Psychiatric: Alert, Oriented x3, Normal Mood/Affect, slitter processed film II-XII Norm as Tested, Abnormal Gait, Motor Weakness (generalized) Skin: Normal Color, Warm/Dry Lymphatic: No Adenopathy Results/Procedures Lab Laboratory Tests 05/27/22 08:55 Patient resulted labs reviewed. FIM Transfers Therapy Code Descriptions/Definitions Functional [place] Measure: 0=Not Assessed/NA 4=Minimal Assistance 1=Total Assistance 5=Supervision or Setup 2=Maximal Assistance 6=Modified [place] 3=Moderate Assistance 7=Complete IndependenceSCALE: Activities may be completed with or without assistive devices. 0-Ubfczvxdyg-gtiuspi completes the activity by him/herself with no assistance from a helper. 5-Set-up or Clean-up Assistance-helper sets up or cleans up; patient completes activity. Knifley assists only prior to or following the activity. 4-Supervision or Touching Assistance-helper provides verbal cues and/or touching/steadying and/or contact guard assistance as patient completes ac tivity. Assistance may be provided throughout the activity or intermittently. 3-Partial/Moderate Assistance-helper does LESS THAN HALF the effort. [place] lifts, holds or supports trunk or limbs, but provides less than half the effort. 2-Substantial/Maximal Assistance-helper does MORE THAN HALF the effort. [place] lifts or holds trunk or limbs and provides more than half the effort. 7-Xwgbkjyzc-modwgu does ALL the effort. Patient does none of the effort to complete the activity. Or, the assistance of 2 or more helpers is required for the patient to complete the activity. If activity was not attempted, code reason: 7-Patient Refused. 9-Not Applicable-not attempted and the patient did not perform the activity before the current illness, exacerbation or injury. 10-Not Attempted due to Environmental Limitations-(lack of equipment, weather restraints, etc.). 88-Not Attempted due to Medical Conditions or Safety Concerns. Roll Left to Right (QC): 6 Sit to Lying (QC): 3 Sit to Stand (QC): 6 Chair/Dvx-th-Dttlw Xfer(QC): 6 Car Transfer (QC): 3 Gait Training Does the Patient Walk?: Yes Walk 10 feet (QC): 4 Walk 50 ft with 2 Turns(QC): 88 Walk 150 ft (QC): 88 Walking 10ft/uneven surface-QC: 4 Gait Persons Needed: 1 Gait Assistive Device: FWW Wheelchair Training Does the Pt Use a Wheelchair?: Yes Distance: 20' Wheel 50 ft with 2 turns (QC): 88 Wheel 150 ft (QC): 88 Type of Wheelchair: Manual Stair Training 1 Step (curb) (QC): 88 4 Steps (QC): 88 12 Steps (QC): 88 Balance Picking up an Object (QC): 4 (CGA using a crystal report developer.) ADL-Treatment Eating (QC): 6 Oral Hygiene (QC): 5 Shower/Bathe Self (QC): 4 (SBA sponge bath seated on BSC) Upper Body Dressing (QC): 4 (SBA) Lower Body Dressing (QC): 4 (SBA) On/Off Footwear (QC): 3 (Min A with R gripper sock donning/doffing. Pt able to complete L gripper sock.) Toileting Hygiene (QC): 3 (Assistance with posterior hygiene after incontinent episode of bowel) Toilet Transfer (QC): 4 (SBA on/off BSC.) Assessment/Plan Assessment and Plan Assess & Plan/Chief Complaint Assessment: Cardiogenic shock Debility LUIS Liver shock AF PAF s/p RVR Liver shock s/p E coli severe sepsis UTI Hypoxia Volume overload HTN OOC Bradycardia Pacemaker Epistaxis Plan: Monitor creat Monitor CHF Monitor O2 Completed abx 05/25/2022: Avelina Haddad for I/O's Appreciate Dr Lundberg 05/26/2022: Diuresis Monitor closely 05/27/2022: Ambulate Monitor closely (1) Cardiogenic shock Status: Resolved (2) Septic shock Status: Resolved (3) Splenic cyst Status: Acute (4) Hypercalcemia Status: Acute (5) ATN (acute tubular necrosis) Status: Acute (6) Gilbert syndrome Status: Chronic (7) Lactic acidosis Status: Resolved Resolution Date/Time: 05/19/22 @ 19:07 (8) E. coli UTI Status: Acute (9) Shock liver Status: Acute (10) Unconjugated hyperbilirubinemia Status: Acute (11) Acute on chronic HFrEF (heart failure with reduced ejection fraction) Status: Acute (12) NSTEMI (non-ST elevation myocardial infarction) Status: Acute (13) Paroxysmal atrial fibrillation with RVR (14) Vomiting in adult Status: Acute ANNEL ESTES DO May 27, 2022 06:23
[2022-05-27] MEDS: VENlafaxine XR 75 MG (EFFEXOR XR) CAP PO SCH (06:38)
[2022-05-27] MEDS: doxAzosin 4 MG (CARDURA) TAB PO SCH ×2 (06:39→21:30)
[2022-05-27] MEDS: CATHETER FLUSH 10 ML SYR IVP SCH ×3 (06:39→21:30)
[2022-05-27 07:23] VITALS: BP 183/69
[2022-05-27] MEDS: APIXABAN 5 MG (ELIQUIS) TABLET PO SCH ×2 (07:33→21:30)
[2022-05-27] MEDS: EMPAGLIFLOZIN 10 MG TABLET (JARDIANCE) PO SCH (07:33)
[2022-05-27] MEDS: CYANOCOBALAMIN 1,000 MCG (VITAMIN B-12) TABLET PO SCH (07:33)
[2022-05-27] MEDS: amLODIPine 10 MG (NORVASC) TAB PO SCH (07:33)
[2022-05-27] MEDS: LETROZOLE 2.5 MG (FEMARA) TAB PO SCH (07:33)
[2022-05-27] MEDS: SALINE NASAL SPRAY (OCEAN) 45 ML BTL SCH ×4 (07:35→21:30)
[2022-05-27] MEDS ORDERED: MECLIZINE 25 MG (ANTIVERT) TAB PO SCH (09:00)
[2022-05-27] MEDS ORDERED: NON-FORMULARY MEDICATION 1 EA EA (Venlafaxine HCl (Venlafaxine HCl ER) 150 MG) PO SCH (09:00)
[2022-05-27] MEDS: SENNOSIDES 8.6 MG (SENOKOT) TAB PO SCH ×2 (09:21→21:30)
[2022-05-27] MEDS: DOCUSATE SODIUM 100 MG (COLACE) CAP PO SCH ×2 (09:21→21:30)
[2022-05-27] MEDS: polyethylene glycoL POWDER 17 GM (MIRALAX) PACK PO SCH ×2 (09:21→21:30)
[2022-05-27 09:29] LABS: CALCIUM 9.8 MG/DL (8.5-10.1); CREATININE SERUM 2.64 MG/DL (0.60-1.30)
--- NOTE | 2022-05-27 09:34 | Progress Note - Cardiology ---
Cardiology SOAP Progress Note Subjective: Sitting up in bed C/O feeling fatigued this morning No c/o CP C/O increasing LE swelling and LUE swelling Objective: I&O/Vital Signs 05/30/22 05/30/22 07:31 08:38 Temp 36.5 Pulse 66 Resp 18 B/P (MAP) 154/79 (104) Pulse Ox 97 O2 Delivery Room Air Room Air 05/30/22 00:00 Intake Total 800 ml Output Total 810 ml Balance -10 ml Weight (Pounds): 230 Weight (Ounces): 0.0 Weight (Calculated Kilograms): 104.990892 Constitutional: AAO x 3, well-developed, well-nourished Respiratory: No accessory muscle use; other (fair, bilateral air entry, diminished at the bases) Cardiovascular: regular rate-rhythm, S1 and S2, systolic murmur (soft YASSINE at card base) Gastrointestional: No tender; soft; No guarding, No rebound; audible bowel so unds Extremities: other (chronic edema of the L arm); No clubbing, No cyanosis Neurologic/Psychiatric: oriented x 3, other (moves all limbs equally) Skin: No rash on exposed areas, No ulcerations on exposed areas Results/Procedures: Labs Laboratory Tests 05/30/22 06:05: White Blood Count 7.0, Red Blood Count 3.08L, Hemoglobin 8.8L, Hematocrit 28L, Mean Corpuscular Volume 89, Mean Corpuscular Hemoglobin 29, Mean Corpuscular Hemoglobin Concent 32, Red Cell Distribution Width 17.9H, Platelet Count 148, Mean Platelet Volume 10.9, Immature Granulocyte % (Auto) 1, Neutrophils (%) (Aut o) 69, Lymphocytes (%) (Auto) 14, Monocytes (%) (Auto) 11, Eosinophils (%) (Auto) 4, Basophils (%) (Auto) 1, Neutrophils # (Auto) 4.8, Lymphocytes # (Auto) 1.0, Monocytes # (Auto) 0.8, Eosinophils # (Auto) 0.3, Basophils # (Auto) 0.1, Immature Granulocyte # (Auto) 0.0, Sodium Level 140, Potassium Level 4.1, Chloride Level 106, Carbon Dioxide Level 23, Anion Gap 11, Blood Urea Nitrogen 41H, Creatinine 2.49H, Estimat Glomerular Filtration Rate 20, BUN/Creatinine Ratio 16, Glucose Level 74, Calcium Level 9.8, Corrected Calcium 10.6H, Total Bilirubin 1.9H, Aspartate Amino Transf (AST/SGOT) 23, Alanine Aminotransferase (ALT/SGPT) 127H, Alkaline Phosphatase 100, Total Protein 5.9L, Albumin 3.0L Microbiology 05/28/22 C. difficile GDH Antigen & Toxins - Final, Complete A/P: Assessment: Shock: septic and/or cardiogenic - mild troponin elevation due to type 2 [place] due to hypotension - shock now resolved; currently hypertensive Hepatitis and jaundice of undetermined etiology - managed by the [facility] Coagulopathy - due to hepatic failure and due to apixaban - improved PAF - Apixaban held during marked hepatic impairment, now resumed Chronic HFrEF due to NICM (primarily managed by her sensitized paper tester Dr Woodward in [place], [place]) - Echocardiogram of 04-08-[address] Felton showed LVEF 10-15% with severe diffuse hypokinesis. LA and RA dilated. Mod to severe AoR. Mod MR. Mod to severe TR. PASP 50-55 mmHg - She reports she had a sleep study done that was "inconclusive" - she does not use CPAP or supplemental oxygen - managed by Dr. Kirk - AICD - implanted in September 2021 at [facility] (single chamber device) - followed by Dr. Woodward - Echo on 05-17-22: LVEF 20-25%, global hypokinesis of LV, mild to mod MR, PASP 35-40 mmHg Acute renal failure - ATN due to hypotension vs hepatorenal syndrome - Cr improving gradually HLD - statin tx H/o DVT R leg - OAC with Eliquis H/O Breast Cancer - has had a mastectomy Gen weakness - d/t prolonged critical illness Chronic lymphedema of the SUSAN Plan: * Complex management due to multiple comorbidities * BP has improved, but she is now feeling weak and fatigued and dizzy on increased dose of Doxazosin - reduce dose * Continuing to hold off on increasing her beta-dai because of continued intermittently bradycardic overnight * Not suitable for NIRALI-inhib/ARB due to renal failure * Renal function improving - lab today pending JOSIE WINKLER May 27, 2022 09:34
--- NOTE | 2022-05-27 11:59 | Physical Therapy Daily Note ---
PT Daily Note-Current Subjective Pt. states he dizziness has improved but the edema in her right lower extremity is worse and she is having visual aura which usually signals a migraine for her. Pt. agrees to Rx but limits gait to short dist per her tolerance Pain Location: No Pain Reported Section J - Health Conditions 1. Rarely or not at all 2. Occasionally 3. Frequently 4. Almost constantly 8. Unable to answer Pain Effect on Sleep: 2 Pain Interference with Therapy: 2 Pain Interference w/Day-to-Day: 2 Mental Status Patient Orientation: Normal For Age Transfers SCALE: Activities may be completed with or without assistive devices. 5-Tvcjbjrsxz-gakdgfc completes the activity by him/herself with no assistance from a helper. 5-Set-up or Clean-up Assistance-helper sets up or cleans up; patient completes activity. [place] assists only prior to or following the activity. 4-Supervision or Touching Assistance-helper provides verbal cues and/or touching/steadying and/or contact guard assistance as patient completes activity. Assistance may be provided throughout the activity or intermittently. 3-Partial/Moderate Assistance-helper does LESS THAN HALF the effort. [place] lift s, holds or supports trunk or limbs, but provides less than half the effort. 2-Substantial/Maximal Assistance-helper does MORE THAN HALF the effort. [place] lifts or holds trunk or limbs and provides more than half the effort. 8-Dguuyivwf-cedzkd does ALL the effort. Patient does none of the effort to complete the activity. Or, the assistance of 2 or more helpers is required for the patient to complete the activity. If activity was not attempted, code reason: 7-Patient Refused. 9-Not Applicable-not attempted and the patient did not perform the activity before the current illness, exacerbation or injury. 10-Not Attempted due to Environmental Limitations-(lack of equipment, weather restraints, etc.). 88-Not Attempted due to Medical Conditions or Safety Concerns. Sit to Stand (QC): 6 Chair/Cem-xy-Kukej Xfer(QC): 6 Gait Training Does the Patient Walk?: Yes Walk 10 feet (QC): 6 Walk 50 ft with 2 Turns(QC): 6 Gait Persons Needed: 1 Gait Assistive Device: FWW occas CGA, gait 50-65 ft x 5 trials with O2 sats >90% eac trial, heavy wt bearing on FWW Exercises Seated Therapy Exercises: Ankle pumps, Sit to stand, Long arc quads, Hip flexion, Hip abd/add Seated Reps: 12 (x2) Treatments short gait bouts per tolerance, seated LE ex Assessment Current Status: Good Progress PT Short Term Goals Short Term Goals Time Frame: May 31, 2022 Sit to lyin (Gladys) Lying to sitting on side of be: 3 (Gladys) Sit to stand: 4 (SBA) Chair/pcy-xx-zmgvp transfer: 4 (SBA) Walk 10 feet: 4 (SBA) Walk 50 feet with two turns: 4 (SBA) PT Roller Inspector And Mender Goals Alf Goals PT Alf Goals Time Frame: Jun 07, 2022 Roll Left & Right (QC): 6 Sit to Lying (QC): 4 (SBA) Lying-Sitting on Side/Bed(QC): 4 (SBA) Sit to Stand (QC): 6 Chair/Vlh-qq-Mhult Xfer(QC): 6 Toilet Transfer (QC): 6 Car Transfer (QC): 4 (SBA) Does the Patient Walk: Yes Walk 10 feet (QC): 6 Walk 50ft with 2 Turns (QC): 6 Walk 150 ft (QC): 88 Walking 10ft on Uneven Surface: 6 1 Step (curb) (QC): 88 4 Steps (QC): 88 12 Steps (QC): 88 Picking up an Object (QC): 6 (using web production artist) Wheel 50 feet with 2 turns (QC: 9 Wheel 150 feet: 9 PT Plan Treatment/Plan Treatment Plan: Continue Plan of Care Treatment Plan: Bed Mobility, Education, Functional Activity Jamir, Functional Strength, Group Therapy, Gait, Safety, Therapeutic Exercise, Transfers Treatment Duration: Jun 07, 2022 Frequency: At least 5 of 7 days/Wk (IRF) Estimated Hrs Per Day: 1.5 hours per day Patient and/or Family Agrees t: Yes Safety Risks/Education Patient Education: Gait Training, Transfer Techniques, Correct Positioning, Disease Process, Safety Issues Teaching Recipient: Patient Teaching Methods: Demonstration, Discussion Response to Teaching: Verbalize Understanding, Return Demonstration, Reinforcement Needed Time Time In: 1100 Time Out: 1200 DATE: May 27, 2022 Total Billed Treatment Time: 60 Total Billed Treatment 1,GT30m,FA10m,EX20m GAYLE LO CANE CUTTER May 27, 2022 11:59
--- NOTE | 2022-05-27 13:27 | Occupational Ther Daily Note ---
OT Current Status-Daily Note Subjective Pt sleeping in bed, woke to name. Difficult to keep pt awake initially. Pt agrees to therapy. No c/o pain. Mental Status/Objective Patient Orientation: Person, Place, Time, Situation Attachments: IV ADL-Treatment Pt agrees to shower. Independent with bed mobility. Independent with SPT using FWW from EOB to BSC. Assist to cleanse and manipulate clothing for toileting. Independent with shower sitting on BSC 100% of the time. Pt declines donning regular clothing due to bowel issues. Assist to wrap R lower leg due to edema. Pt dons/doffs L edema glove on hand independently. Pt takes increased time to complete all tasks. After session, pt sitting in recliner with call light/phone in reach. All needs met in room. Therapy Code Descriptions/Definitions Functional [place] Measure: 0=Not Assessed/NA 4=Minimal Assistance 1=Total Assistance 5=Supervision or Setup 2=Maximal Assistance 6=Modified [place] 3=Moderate Assistance 7=Complete IndependenceSCALE: Activities may be completed with or without assistive devices. 9-Ehbmvfehmg-hgxovxh completes the activity by him/herself with no assistance from a helper. 5-Set-up or Clean-up Assistance-helper sets up or cleans up; patient completes activity. [place] assists only prior to or following the activity. 4-Supervision or Touching Assistance-helper provides verbal cues and/or touching/steadying and/or contact guard assistance as patient completes activity. Assistance may be provided throughout the activity or intermittently. 3-Partial/Moderate Assistance-helper does LESS THAN HALF the effort. [place] lifts, holds or supports trunk or limbs, but provides less than half the effort. 2-Substantial/Maximal Assistance-helper does MORE THAN HALF the effort. [place] lifts or holds trunk or limbs and provides more than half the effort. 7-Hjqheetfa-haoikz does ALL the effort. Patient does none of the effort to complete the activity. Or, the assistance of 2 or more helpers is required for the patient to complete the activity. If activity was not attempted, code reason: 7-Patient Refused. 9-Not Applicable-not attempted and the patient did not perform the activity before the current illness, exacerbation or injury. 10-Not Attempted due to Environmental Limitations-(lack of equipment, weather restraints, etc.). 88-Not Attempted due to Medical Conditions or Safety Concerns. Shower/Bathe Self (QC): 6 Toileting Hygiene (QC): 2 Toilet Transfer (QC): 6 OT Short Term Goals Short Term Goals Time Frame: Jun 08, 2022 Shower/bathe self: 5 Upper body dressin Lower body dressin Putting on/taking off footwear: 5 OT Snf Goals Snf Goals Time Frame: Jun 17, 2022 Acute change in mental status: 0 Inattention: 0 Disorganized thinkin Altered level of consciousness: 0 Eating (QC): 6 Oral Hygiene (QC): 6 Toileting Hygiene (QC): 6 Shower/Bathe Self (QC): 6 Upper Body Dressing (QC): 6 Lower Body Dressing (QC): 6 On/Off Footwear (QC): 6 Additional Goals: 1-Demonstrate ADL Tasks, 2-Verbalize Understanding, 3- ImproveStrength/Jamir 1=Demonstrate adherence to instructed precautions during ADL tasks. 2=Patient will verbalize/demonstrate understanding of assistive devices/modifications for ADL. 3=Patient will improve strength/tolerance for activity to enable patient to perform ADL's. OT Education/Plan Problem List/Assessment Assessment: Decreased Activ Tolerance, Edema, Impaired Self-Care Skills Discharge Recommendations Plan/Recommendations: Continue POC Treatment Plan/Plan of Care Patient would benefit from OT for education, treatment and training to promote independence in ADL's, mobility, safety and/or upper extremity function for ADL's. Plan of Care: ADL Retraining, Functional Mobility, Group Exercise/Act as Ind, UE Funct Exercise/Act, OTHER (edema management UEs) Treatment Duration: Jun 17, 2022 Frequency: At least 5 of 7 days/Wk (IRF) Estimated Hrs Per Day: 1.5 hours per day Agreement: Yes Rehab Potential: Fair Time Start Time: 09:00 Stop Time: 10:30 DATE: May 27, 2022 Total Time Billed (hr/min): 90 Billed Treatment Time 1 visit-ADL 6 (90 min) DEVORAH ELKINS May 27, 2022 13:27
--- NOTE | 2022-05-27 13:33 | Physical Therapy Daily Note ---
PT Daily Note-Current Subjective Pt.agrees to Rx but wants to walk short dist and do seated ex, inquires as to when she will be DCd Pain Location: No Pain Reported Section J - Health Conditions 1. Rarely or not at all 2. Occasionally 3. Frequently 4. Almost constantly 8. Unable to answer Pain Effect on Sleep: 1 Pain Interference with Therapy: 1 Pain Interference w/Day-to-Day: 1 Mental Status Patient Orientation: Normal For Age Transfers SCALE: Activities may be completed with or without assistive devices. 2-Jmsmgprnij-chlrzhj completes the activity by him/herself with no assistance from a helper. 5-Set-up or Clean-up Assistance-helper sets up or cleans up; patient completes activity. [place] assists only prior to or following the activity. 4-Supervision or Touching Assistance-helper provides verbal cues and/or touching/steadying and/or contact guard assistance as patient completes activity. Assistance may be provided throughout the activity or intermittently. 3-Partial/Moderate Assistance-helper does LESS THAN HALF the effort. [place] lif ts, holds or supports trunk or limbs, but provides less than half the effort. 2-Substantial/Maximal Assistance-helper does MORE THAN HALF the effort. [place] lifts or holds trunk or limbs and provides more than half the effort. 1-Satnegjuq-mbbeee does ALL the effort. Patient does none of the effort to complete the activity. Or, the assistance of 2 or more helpers is required for the patient to complete the activity. If activity was not attempted, code reason: 7-Patient Refused. 9-Not Applicable-not attempted and the patient did not perform the activity before the current illness, exacerbation or injury. 10-Not Attempted due to Environmental Limitations-(lack of equipment, weather restraints, etc.). 88-Not Attempted due to Medical Conditions or Safety Concerns. all sit to stands SBA Gait Training Does the Patient Walk?: Yes Gait Assistive Device: FWW 50 ft x 1, 20 ft x1 FWW CGA slow, no LOB Exercises Supine Ex: Ankle pumps, Quad Set, Glut sets Supine Reps: 12 Seated Therapy Exercises: Ankle pumps, Sit to stand, Long arc quads, Hip flexion, Hip abd/add Seated Reps: 12 Treatments TRFs, gait, seated ex Assessment Current Status: Good Progress PT Short Term Goals Short Term Goals Time Frame: May 31, 2022 Sit to lyin (Gladys) Lying to sitting on side of be: 3 (Gladys) Sit to stand: 4 (SBA) Chair/cgq-ak-jucgx transfer: 4 (SBA) Walk 10 feet: 4 (SBA) Walk 50 feet with two turns: 4 (SBA) PT Five Piece Expansion Maker Hand Goals Group Home Goals PT Five Piece Expansion Maker Hand Goals Time Frame: Jun 07, 2022 Roll Left & Right (QC): 6 Sit to Lying (QC): 4 (SBA) Lying-Sitting on Side/Bed(QC): 4 (SBA) Sit to Stand (QC): 6 Chair/Zhu-ul-Bakgn Xfer(QC): 6 Toilet Transfer (QC): 6 Car Transfer (QC): 4 (SBA) Does the Patient Walk: Yes Walk 10 feet (QC): 6 Walk 50ft with 2 Turns (QC): 6 Walk 150 ft (QC): 88 Walking 10ft on Uneven Surface: 6 1 Step (curb) (QC): 88 4 Steps (QC): 88 12 Steps (QC): 88 Picking up an Object (QC): 6 (using sink maker) Wheel 50 feet with 2 turns (QC: 9 Wheel 150 feet: 9 PT Plan Treatment/Plan Treatment Plan: Continue Plan of Care Treatment Plan: Bed Mobility, Education, Functional Activity Jamir, Functional Strength, Group Therapy, Gait, Safety, Therapeutic Exercise, Transfers Treatment Duration: Jun 07, 2022 Frequency: At least 5 of 7 days/Wk (IRF) Estimated Hrs Per Day: 1.5 hours per day Patient and/or Family Agrees t: Yes Safety Risks/Education Patient Education: Gait Training, Transfer Techniques, Safety Issues Time Time In: 1302 Time Out: 1332 DATE: May 27, 2022 Total Billed Treatment Time: 30 Total Billed Treatment 1.GT13m,EX17m GAYLE LO MACHINIST SUPERVISOR OUTSIDE May 27, 2022 13:32
[2022-05-27] MEDS: LACTOBACILLUS ACIDOPHILUS (PROBIOTIC) CAPSULE PO SCH ×2 (14:16→18:20)
[2022-05-27 19:53] VITALS: BP 144/67
[2022-05-27] MEDS: MECLIZINE 25 MG (ANTIVERT) TAB PO SCH (21:31)
[2022-05-28] MEDS: CATHETER FLUSH 10 ML SYR IVP SCH ×3 (05:35→21:18)
[2022-05-28] MEDS: VENlafaxine XR 75 MG (EFFEXOR XR) CAP PO SCH (05:36)
[2022-05-28] MEDS: KCL 10 MEQ TAB (MICRO K) PO SCH (05:36)
[2022-05-28 05:50] LABS: POTASSIUM 4.1 MMOL/L (3.6-5.0)
[2022-05-28 05:52] LABS: CALCIUM 9.6 MG/DL (8.5-10.1)
[2022-05-28 05:56] LABS: CREATININE SERUM 2.37 MG/DL (0.60-1.30)
--- NOTE | 2022-05-28 06:43 | PM&R Progress Note ---
Subjective HPI/CC On Admission Date Seen by Provider: May 28, 2022 Time Seen by Provider: 12:00 Subjective/Events-last exam 05/28/2022: Patient doing well Moving around better Discontinue catheter tomorrow she is reluctant that needs to be done Eating and drinking well Bowels are moving No more epistaxis 05/27/2022: Making some progress Less weak Haddad cath still in place Purewick did not work for her in the past Incontinence is disturbing for her Participation is improved 05/26/2022: Improved status Very debilitated Labs improved Lasix improved edema Remains with Haddad Incontinence normally 05/25/2022: Slow moving today Labs reviewed Appreciate Dr Lundberg direction on bradycardia and HTN Labs reviewed Haddad cath in place Lasix given Third-spacing of fluid noted Nosebleeds so will initiate saline spray Review of Systems General: Fatigue, Malaise Objective Exam Vital Signs Vital Signs Date Time Temp Pulse Resp B/P (MAP) Pulse Ox O2 Delivery O2 Flow Rate FiO2 05/28/22 09:49 Room Air 05/28/22 07:10 36.7 64 18 185/75 (111) 95 Capillary Refill : General Appearance: No Apparent Distress, WD/WN, Chronically ill, Obese HEENT: PERRL/EOMI, Normal ENT Inspection, Pharynx Normal Neck: Full Range of Motion, Normal Inspection, Non Tender, Supple, Carotid Bruit Respiratory: Chest Non Tender, Lungs Clear, No Accessory Muscle Use, No Respiratory Distress, Decreased Breath Sounds Cardiovascular: Regular Rate, Rhythm, No Gallop, No JVD, No Murmur, Normal Peripheral Pulses Gastrointestinal: Normal Bowel Sounds, No Organomegaly, No Pulsatile Mass, Non Tender, Soft Back: Normal Inspection, No CVA Tenderness, No Vertebral Tenderness Extremity: Normal Capillary Refill, Normal Inspection, Normal Range of Motion, Non Tender, No Calf Tenderness, Pedal Edema Neurologic/Psychiatric: Alert, Oriented x3, Normal Mood/Affect, manager body II-XII Norm as Tested, Abnormal Gait, Motor Weakness (generalized) Skin: Normal Color, Warm/Dry Lymphatic: No Adenopathy Results/Procedures Lab Laboratory Tests 05/28/22 05:25 Patient resulted labs reviewed. FIM Transfers Therapy Code Descriptions/Definitions Functional [place] Measure: 0=Not Assessed/NA 4=Minimal Assistance 1=Total Assistance 5=Supervision or Setup 2=Maximal Assistance 6=Modified [place] 3=Moderate Assistance 7=Complete IndependenceSCALE: Activities may be completed with or without assistive devices. 8-Ioruxxdlzd-assnsxu completes the activity by him/herself with no assistance from a helper. 5-Set-up or Clean-up Assistance-helper sets up or cleans up; patient completes activity. [place] assists only prior to or following the activity. 4-Supervision or Touching Assistance-helper provides verbal cues and/or touching/steadying and/or contact guard assistance as patient completes activity. Assistance may be provided throughout the activity or intermittently. 3-Partial/Moderate Assistance-helper does LESS THAN HALF the effort. [place] lifts, holds or supports trunk or limbs, but provides less than half the effort. 2-Substantial/Maximal Assistance-helper does MORE THAN HALF the effort. [place] lifts or holds trunk or limbs and provides more than half the effort. 6-Vehjwmhzd-fglnyi does ALL the effort. Patient does none of the effort to complete the activity. Or, the assistance of 2 or more helpers is required for the patient to complete the activity. If activity was not attempted, code reason: 7-Patient Refused. 9-Not Applicable-not attempted and the patient did not perform the activity before the current illness, exacerbation or injury. 10-Not Attempted due to Environmental Limitations-(lack of equipment, weather restraints, etc.). 88-Not Attempted due to Medical Conditions or Safety Concerns. Roll Left to Right (QC): 6 Sit to Lying (QC): 3 Sit to Stand (QC): 6 Chair/Cwa-fm-Swrus Xfer(QC): 6 Car Transfer (QC): 3 Gait Training Does the Patient Walk?: Yes Walk 10 feet (QC): 6 Walk 50 ft with 2 Turns(QC): 6 Walk 150 ft (QC): 88 Walking 10ft/uneven surface-QC: 4 Gait Persons Needed: 1 Gait Assistive Device: FWW Wheelchair Training Does the Pt Use a Wheelchair?: Yes Distance: 20' Wheel 50 ft with 2 turns (QC): 88 Wheel 150 ft (QC): 88 Type of Wheelchair: Manual Stair Training 1 Step (curb) (QC): 88 4 Steps (QC): 88 12 Steps (QC): 88 Balance Picking up an Object (QC): 4 (CGA using a senior litigation paralegal.) ADL-Treatment Eating (QC): 6 Oral Hygiene (QC): 5 Shower/Bathe Self (QC): 6 Upper Body Dressing (QC): 4 (SBA) Lower Body Dressing (QC): 4 (SBA) On/Off Footwear (QC): 3 (Min A with R gripper sock donning/doffing. Pt able to complete L gripper sock.) Toileting Hygiene (QC): 2 Toilet Transfer (QC): 6 Assessment/Plan Assessment and Plan Assess & Plan/Chief Complaint Assessment: Cardiogenic shock Debility LUIS Liver shock AF PAF s/p RVR Liver shock s/p E coli severe sepsis UTI Hypoxia Volume overload HTN OOC Bradycardia Pacemaker Epistaxis resolved Plan: Monitor creat Monitor CHF Monitor O2 Completed abx 05/25/2022: Avelina Haddad for I/O's Appreciate Dr Lundberg 05/26/2022: Diuresis Monitor closely 05/27/2022: Ambulate Monitor closely 05/28/2022: Discontinue catheter tomorrow (1) Cardiogenic shock Status: Resolved (2) Septic shock Status: Resolved (3) Splenic cyst Status: Acute (4) Hypercalcemia Status: Acute (5) ATN (acute tubular necrosis) Status: Acute (6) Gilbert syndrome Status: Chronic (7) Lactic acidosis Status: Resolved Resolution Date/Time: 05/19/22 @ 19:07 (8) E. coli UTI Status: Acute (9) Shock liver Status: Acute (10) Unconjugated hyperbilirubinemia Status: Acute (11) Acute on chronic HFrEF (heart failure with reduced ejection fraction) Status: Acute (12) NSTEMI (non-ST elevation myocardial infarction) Status: Acute (13) Paroxysmal atrial fibrillation with RVR (14) Vomiting in adult Status: Acute ANNEL ESTES DO May 28, 2022 06:43
[2022-05-28 07:10] VITALS: BP 185/75
[2022-05-28] MEDS: CYANOCOBALAMIN 1,000 MCG (VITAMIN B-12) TABLET PO SCH (09:41)
[2022-05-28] MEDS: LETROZOLE 2.5 MG (FEMARA) TAB PO SCH (09:41)
[2022-05-28] MEDS: FUROSEMIDE 40 MG (LASIX) TAB PO SCH (09:41)
[2022-05-28] MEDS: APIXABAN 5 MG (ELIQUIS) TABLET PO SCH ×2 (09:42→21:17)
[2022-05-28] MEDS: DOCUSATE SODIUM 100 MG (COLACE) CAP PO SCH ×2 (09:42→21:30)
[2022-05-28] MEDS: doxAzosin 4 MG (CARDURA) TAB PO SCH ×2 (09:42→21:17)
[2022-05-28] MEDS: amLODIPine 10 MG (NORVASC) TAB PO SCH (09:42)
[2022-05-28] MEDS: EMPAGLIFLOZIN 10 MG TABLET (JARDIANCE) PO SCH (09:42)
[2022-05-28] MEDS: polyethylene glycoL POWDER 17 GM (MIRALAX) PACK PO SCH ×2 (09:43→21:13)
[2022-05-28] MEDS: SENNOSIDES 8.6 MG (SENOKOT) TAB PO SCH ×2 (09:43→21:13)
[2022-05-28] MEDS: SALINE NASAL SPRAY (OCEAN) 45 ML BTL SCH ×4 (09:44→21:17)
[2022-05-28] MEDS: LACTOBACILLUS ACIDOPHILUS (PROBIOTIC) CAPSULE PO SCH ×3 (09:46→17:32)
--- NOTE | 2022-05-28 10:38 | Cardiology Progress Note ---
Subjective Date Seen by Provider: May 28, 2022 Time Seen by Provider: 10:33 Subjective/Events-last exam Patient was seen at bedside, laying down comfortably, no new complaint. Objective-Cardiology Exam Last Set of Vital Signs Vital Signs 05/28/22 05/28/22 07:10 09:49 Temp 36.7 Pulse 64 Resp 18 B/P (MAP) 185/75 (111) Pulse Ox 95 O2 Delivery Room Air I&O Intake and Output 05/28/22 00:00 Intake Total 1360 ml Output Total 1100 ml Balance 260 ml Intake Oral 1360 ml Output Urine Total 1100 ml # Bowel Movements 1 General: Alert, Oriented X3, Cooperative HEENT: Atraumatic, PERRLA Neck: Supple, No JVD, No Thyromegaly Lungs: Clear to Auscultation, Normal Air Movement Heart: Regular Rate, Normal S1, Normal S2, Other (Systolic murmur at the left sternal border) Abdomen: Normal Bowel Sounds, Soft, No Tenderness, No Hepatosplenomegaly, No Masses Extremities: No Clubbing, No Cyanosis, Normal Pulses, No Tenderness/Swelling, Other (Edema) Skin: No Rashes, No Breakdown, No Significant Lesion Neuro: Normal Gait, Normal Speech, Strength at 5/5 X4 Ext, Normal Tone, Se nsation Intact Psych/Mental Status: Mental Status NL, Mood NL Results Lab Laboratory Tests 05/28/22 05:25 A/P-Cardiology Admission Diagnosis Congestive heart failure Hypotensive shock Lymphedema DVT Assessment/Plan Status post hypotensive shock Blood pressure currently elevated. Continue to monitor Hepatitis and Joy[place], could be passive hepatic congestion Currently improving. Managed by medical team Paroxysmal atrial fibrillation, Eliquis was held probably secondary to hepatic impairment. Congestive heart failure, nonischemic cardiomyopathy followed by Dr. Woodward 2D echo done in May 2022 with a EF 20 to 25%, PA pressure 35 to 40 mmHg History of AICD, single-chamber implanted in September 2021 at [facility] for primary prevention by Dr. Woodward Acute renal insufficiency, monitor renal function Improving slowly Hyperlipidemia, monitor lipids History of DVT of the right leg maintained on oral anticoagulation History of breast cancer with left mastectomy and lymphedema in the left upper extremity Generalized weakness. FRANC BRADFORD MD May 28, 2022 10:38
[2022-05-28 10:45] VITALS: BP 140/63
--- NOTE | 2022-05-28 12:11 | Physical Therapy Daily Note ---
PT Daily Note-Current Subjective Patient lying supine in bed upon PT arrival, agreeable to treatment. Patient rates pain currently at 0/10. Pain Section J - Health Conditions 1. Rarely or not at all 2. Occasionally 3. Frequently 4. Almost constantly 8. Unable to answer Pain Effect on Sleep: 1 Pain Interference with Therapy: 1 Pain Interference w/Day-to-Day: 1 Mental Status Patient Orientation: Person, Place, Time, Situation Transfers SCALE: Activities may be completed with or without assistive devices. 5-Xljroiluaq-fbzxyqd completes the activity by him/herself with no assistance from a helper. 5-Set-up or Clean-up Assistance-helper sets up or cleans up; patient completes activity. [place] assists only prior to or following the activity. 4-Supervision or Touching Assistance-helper provides verbal cues and/or touching/steadying and/or contact guard assistance as patient completes activity. Assistance may be provided throughout the activity or intermittently. 3-Partial/Moderate Assistance-helper does LESS THAN HALF the effort. [place] lifts, holds or supports trunk or limbs, but provides less than half the effort. 2-Substantial/Maximal Assistance-helper does MORE THAN HALF the effort. [place] lifts or holds trunk or limbs and provides more than half the effort. 6-Jcejfqjeg-fsphcl does ALL the effort. Patient does none of the effort to complete the activity. Or, the assistance of 2 or more helpers is required for the patient to complete the activity. If activity was not attempted, code reason: 7-Patient Refused. 9-Not Applicable-not attempted and the patient did not perform the activity before the current illness, exacerbation or injury. 10-Not Attempted due to Environmental Limitations-(lack of equipment, weather restraints, etc.). 88-Not Attempted due to Medical Conditions or Safety Concerns. Roll Left & Right (QC): 4 Sit to Lying (QC): 4 Lying to Sitting/Side of Bed(Q: 4 Sit to Stand (QC): 4 Chair/Phw-ap-Yrqhw Xfer(QC): 4 Gait Training Does the Patient Walk?: Yes Distance: 50 feet x 2 Walk 10 feet (QC): 4 Walk 50 ft with 2 Turns(QC): 4 Gait Persons Needed: 1 Gait Assistive Device: FWW Assessment Current Status: Fair Progress Patient tolerated treatment fair. Patient performs all observed bed mobility and transfers with SBA. Patient ambulates 50 feet with FWW, with SBA and verbal cues, requires 1 sitting rest break and then ambulates 50 feet back to room. Patient in chair post treatment with all needs met, nursing notified, call light in hand. PT Short Term Goals Short Term Goals Time Frame: May 31, 2022 Sit to lyin (Gladys) Lying to sitting on side of be: 3 (Gladys) Sit to stand: 4 (SBA) Chair/euq-pp-zzhpw transfer: 4 (SBA) Walk 10 feet: 4 (SBA) Walk 50 feet with two turns: 4 (SBA) PT Intermediate Goals Intermediate Goals PT Intermediate Goals Time Frame: Jun 07, 2022 Roll Left & Right (QC): 6 Sit to Lying (QC): 4 (SBA) Lying-Sitting on Side/Bed(QC): 4 (SBA) Sit to Stand (QC): 6 Chair/Brd-gv-Fjajk Xfer(QC): 6 Toilet Transfer (QC): 6 Car Transfer (QC): 4 (SBA) Does the Patient Walk: Yes Walk 10 feet (QC): 6 Walk 50ft with 2 Turns (QC): 6 Walk 150 ft (QC): 88 Walking 10ft on Uneven Surface: 6 1 Step (curb) (QC): 88 4 Steps (QC): 88 12 Steps (QC): 88 Picking up an Object (QC): 6 (using processing assistant) Wheel 50 feet with 2 turns (QC: 9 Wheel 150 feet: 9 PT Plan Treatment/Plan Treatment Plan: Continue Plan of Care Treatment Plan: Bed Mobility, Education, Functional Activity Jamir, Functional Strength, Group Therapy, Gait, Safety, Therapeutic Exercise, Transfers Treatment Duration: Jun 07, 2022 Frequency: At least 5 of 7 days/Wk (IRF) Estimated Hrs Per Day: 1.5 hours per day Patient and/or Family Agrees t: Yes Time Time In: 1141 Time Out: 1159 DATE: May 28, 2022 Total Billed Treatment Time: 18 Total Billed Treatment Visit, AUSTIN Ramey PT May 28, 2022 12:11
[2022-05-28 21:05] VITALS: BP 115/66
[2022-05-28] MEDS: MECLIZINE 25 MG (ANTIVERT) TAB PO SCH (21:17)
[2022-05-29] MEDS: KCL 10 MEQ TAB (MICRO K) PO SCH (06:00)
[2022-05-29] MEDS: VENlafaxine XR 75 MG (EFFEXOR XR) CAP PO SCH (06:00)
[2022-05-29] MEDS: CATHETER FLUSH 10 ML SYR IVP SCH ×3 (06:01→20:03)
[2022-05-29 06:34] LABS: POTASSIUM 4.1 MMOL/L (3.6-5.0)
[2022-05-29 06:35] LABS: CALCIUM 9.5 MG/DL (8.5-10.1)
[2022-05-29 06:40] LABS: CREATININE SERUM 2.35 MG/DL (0.60-1.30)
[2022-05-29 07:01] VITALS: BP 128/73
--- NOTE | 2022-05-29 08:05 | PM&R Progress Note ---
Subjective HPI/CC On Admission Date Seen by Provider: May 29, 2022 Time Seen by Provider: 12:00 Subjective/Events-last exam 05/29/2022: Patient doing really well Appears improved every day Still gaining water weight Labs reviewed Mild epistaxis every day 05/28/2022: Patient doing well Moving around better Discontinue catheter tomorrow she is reluctant that needs to be done Eating and drinking well Bowels are moving No more epistaxis 05/27/2022: Making some progress Less weak Haddad cath still in place Purewick did not work for her in the past Incontinence is disturbing for her Participation is improved 05/26/2022: Improved status Very debilitated Labs improved Lasix improved edema Remains with Haddad Incontinence normally 05/25/2022: Slow moving today Labs reviewed Appreciate Dr Lundberg direction on bradycardia and HTN Labs reviewed Haddad cath in place Lasix given Third-spacing of fluid noted Nosebleeds so will initiate saline spray Review of Systems General: Fatigue, Malaise Objective Exam Vital Signs Vital Signs Date Time Temp Pulse Resp B/P (MAP) Pulse Ox O2 Delivery O2 Flow Rate FiO2 05/29/22 09:20 Room Air 05/29/22 07:01 36.7 65 18 128/73 (91) 95 Capillary Refill : General Appearance: No Apparent Distress, WD/WN, Chronically ill, Obese HEENT: PERRL/EOMI, Normal ENT Inspection, Pharynx Normal Neck: Full Range of Motion, Normal Inspection, Non Tender, Supple, Carotid Bruit Respiratory: Chest Non Tender, Lungs Clear, No Accessory Muscle Use, No Respiratory Distress, Decreased Breath Sounds Cardiovascular: Regular Rate, Rhythm, No Gallop, No JVD, No Murmur, Normal Peripheral Pulses Gastrointestinal: Normal Bowel Sounds, No Organomegaly, No Pulsatile Mass, Non Tender, Soft Back: Normal Inspection, No CVA Tenderness, No Vertebral Tenderness Extremity: Normal Capillary Refill, Normal Inspection, Normal Range of Motion, Non Tender, No Calf Tenderness, Pedal Edema Neurologic/Psychiatric: Alert, Oriented x3, Normal Mood/Affect, property developer II-XII Norm as Tested, Abnormal Gait, Motor Weakness (generalized) Skin: Normal Color, Warm/Dry Lymphatic: No Adenopathy Results/Procedures Lab Laboratory Tests 05/29/22 05:50 Patient resulted labs reviewed. FIM Transfers Therapy Code Descriptions/Definitions Functional [place] Measure: 0=Not Assessed/NA 4=Minimal Assistance 1=Total Assistance 5=Supervision or Setup 2=Maximal Assistance 6=Modified [place] 3=Moderate Assistance 7=Complete IndependenceSCALE: Activities may be completed with or without assistive devices. 5-Eiyjxzpplo-ajqvcxu completes the activity by him/herself with no assistance from a helper. 5-Set-up or Clean-up Assistance-helper sets up or cleans up; patient completes activity. [place] assists only prior to or following the activity. 4-Supervision or Touching Assistance-helper provides verbal cues and/or touching/steadying and/or contact guard assistance as patient completes activit y. Assistance may be provided throughout the activity or intermittently. 3-Partial/Moderate Assistance-helper does LESS THAN HALF the effort. [place] lifts, holds or supports trunk or limbs, but provides less than half the effort. 2-Substantial/Maximal Assistance-helper does MORE THAN HALF the effort. [place] lifts or holds trunk or limbs and provides more than half the effort. 0-Mhckgprlv-xlamnc does ALL the effort. Patient does none of the effort to complete the activity. Or, the assistance of 2 or more helpers is required for the patient to complete the activity. If activity was not attempted, code reason: 7-Patient Refused. 9-Not Applicable-not attempted and the patient did not perform the activity before the current illness, exacerbation or injury. 10-Not Attempted due to Environmental Limitations-(lack of equipment, weather restraints, etc.). 88-Not Attempted due to Medical Conditions or Safety Concerns. Roll Left to Right (QC): 4 Sit to Lying (QC): 4 Sit to Stand (QC): 4 Chair/Tjw-ly-Aazom Xfer(QC): 4 Car Transfer (QC): 3 Gait Training Does the Patient Walk?: Yes Distance: 50 feet x 2 Walk 10 feet (QC): 4 Walk 50 ft with 2 Turns(QC): 4 Walk 150 ft (QC): 88 Walking 10ft/uneven surface-QC: 4 Gait Persons Needed: 1 Gait Assistive Device: FWW Wheelchair Training Does the Pt Use a Wheelchair?: Yes Distance: 20' Wheel 50 ft with 2 turns (QC): 88 Wheel 150 ft (QC): 88 Type of Wheelchair: Manual Stair Training 1 Step (curb) (QC): 88 4 Steps (QC): 88 12 Steps (QC): 88 Balance Picking up an Object (QC): 4 (CGA using a bed control specialist.) ADL-Treatment Eating (QC): 6 Oral Hygiene (QC): 5 Shower/Bathe Self (QC): 6 Upper Body Dressing (QC): 4 (SBA) Lower Body Dressing (QC): 4 (SBA) On/Off Footwear (QC): 3 (Min A with R gripper sock donning/doffing. Pt able to complete L gripper sock.) Toileting Hygiene (QC): 2 Toilet Transfer (QC): 6 Assessment/Plan Assessment and Plan Assess & Plan/Chief Complaint Assessment: Cardiogenic shock Debility LUIS Liver shock AF PAF s/p RVR Liver shock s/p E coli severe sepsis UTI Hypoxia Volume overload HTN OOC Bradycardia Pacemaker Epistaxis resolved Plan: Monitor creat Monitor CHF Monitor O2 Completed abx 05/25/2022: Lasix Haddad for I/O's Appreciate Dr Lundberg 05/26/2022: Diuresis Monitor closely 05/27/2022: Ambulate Monitor closely 05/28/2022: Discontinue catheter tomorrow 05/29/2022: Monitor weight Monitor creatinine Haddad discontinued today (1) Cardiogenic shock Status: Resolved (2) Septic shock Status: Resolved (3) Splenic cyst Status: Acute (4) Hypercalcemia Status: Acute (5) ATN (acute tubular necrosis) Status: Acute (6) Gilbert syndrome Status: Chronic (7) Lactic acidosis Status: Resolved Resolution Date/Time: 05/19/22 @ 19:07 (8) E. coli UTI Status: Acute (9) Shock liver Status: Acute (10) Unconjugated hyperbilirubinemia Status: Acute (11) Acute on chronic HFrEF (heart failure with reduced ejection fraction) Status: Acute (12) NSTEMI (non-ST elevation myocardial infarction) Status: Acute (13) Paroxysmal atrial fibrillation with RVR (14) Vomiting in adult Status: Acute ANNEL ESTES DO May 29, 2022 08:05
[2022-05-29] MEDS: LACTOBACILLUS ACIDOPHILUS (PROBIOTIC) CAPSULE PO SCH ×3 (08:06→17:35)
[2022-05-29] MEDS: CYANOCOBALAMIN 1,000 MCG (VITAMIN B-12) TABLET PO SCH (08:06)
[2022-05-29] MEDS: FUROSEMIDE 40 MG (LASIX) TAB PO SCH (08:07)
[2022-05-29] MEDS: amLODIPine 10 MG (NORVASC) TAB PO SCH (08:07)
[2022-05-29] MEDS: doxAzosin 4 MG (CARDURA) TAB PO SCH ×2 (08:07→20:01)
[2022-05-29] MEDS: LETROZOLE 2.5 MG (FEMARA) TAB PO SCH (08:08)
[2022-05-29] MEDS: APIXABAN 5 MG (ELIQUIS) TABLET PO SCH ×2 (08:08→20:01)
[2022-05-29] MEDS: EMPAGLIFLOZIN 10 MG TABLET (JARDIANCE) PO SCH (08:08)
[2022-05-29] MEDS: SALINE NASAL SPRAY (OCEAN) 45 ML BTL SCH ×4 (08:09→20:04)
[2022-05-29] MEDS: polyethylene glycoL POWDER 17 GM (MIRALAX) PACK PO SCH ×2 (08:09→19:50)
[2022-05-29] MEDS: SENNOSIDES 8.6 MG (SENOKOT) TAB PO SCH ×2 (08:09→19:50)
[2022-05-29] MEDS: DOCUSATE SODIUM 100 MG (COLACE) CAP PO SCH ×2 (08:09→19:49)
[2022-05-29 19:52] VITALS: BP 141/76
[2022-05-29] MEDS: MECLIZINE 25 MG (ANTIVERT) TAB PO SCH (20:01)
--- NOTE | 2022-05-30 05:16 | PM&R Progress Note ---
Subjective HPI/CC On Admission Date Seen by Provider: May 30, 2022 Time Seen by Provider: 08:30 Subjective/Events-last exam 05/30/2022: Doing well Improved overall No pain reported Edema persists Labs reviewed 05/29/2022: Patient doing really well Appears improved every day Still gaining water weight Labs reviewed Mild epistaxis every day 05/28/2022: Patient doing well Moving around better Discontinue catheter tomorrow she is reluctant that needs to be done Eating and drinking well Bowels are moving No more epistaxis 05/27/2022: Making some progress Less weak Haddad cath still in place Purewick did not work for her in the past Incontinence is disturbing for her Participation is improved 05/26/2022: Improved status Very debilitated Labs improved Lasix improved edema Remains with Haddad Incontinence normally 05/25/2022: Slow moving today Labs reviewed Appreciate Dr Lundberg direction on bradycardia and HTN Labs reviewed Haddad cath in place Lasix given Third-spacing of fluid noted Nosebleeds so will initiate saline spray Review of Systems General: Fatigue, Malaise Objective Exam Vital Signs Vital Signs Date Time Temp Pulse Resp B/P (MAP) Pulse Ox O2 Delivery O2 Flow Rate FiO2 05/30/22 21:10 64 18 128/60 (82) 99 Room Air 05/30/22 20:31 36.4 Capillary Refill : General Appearance: No Apparent Distress, WD/WN, Chronically ill, Obese HEENT: PERRL/EOMI, Normal ENT Inspection, Pharynx Normal Neck: Full Range of Motion, Normal Inspection, Non Tender, Supple, Carotid Bruit Respiratory: Chest Non Tender, Lungs Clear, No Accessory Muscle Use, No Respiratory Distress, Decreased Breath Sounds Cardiovascular: Regular Rate, Rhythm, No Gallop, No JVD, No Murmur, Normal Peripheral Pulses Gastrointestinal: Normal Bowel Sounds, No Organomegaly, No Pulsatile Mass, Non Tender, Soft Back: Normal Inspection, No CVA Tenderness, No Vertebral Tenderness Extremity: Normal Capillary Refill, Normal Inspection, Normal Range of Motion, Non Tender, No Calf Tenderness, Pedal Edema Neurologic/Psychiatric: Alert, Oriented x3, Normal Mood/Affect, solutions operator II-XII Norm as Tested, Abnormal Gait, Motor Weakness (generalized) Skin: Normal Color, Warm/Dry Lymphatic: No Adenopathy Results/Procedures Lab Laboratory Tests 05/30/22 06:05 Patient resulted labs reviewed. FIM Transfers Therapy Code Descriptions/Definitions Functional [place] Measure: 0=Not Assessed/NA 4=Minimal Assistance 1=Total Assistance 5=Supervision or Setup 2=Maximal Assistance 6=Modified [place] 3=Moderate Assistance 7=Complete IndependenceSCALE: Activities may be completed with or without assistive devices. 4-Bympawyvdy-uojarlt completes the activity by him/herself with no assistance from a helper. 5-Set-up or Clean-up Assistance-helper sets up or cleans up; patient completes activity. [place] assists only prior to or following the activity. 4-Supervision or Touching Assistance-helper provides verbal cues and/or touching/steadying and/or contact guard assistance as patient completes activity. Assistance may be provided throughout the activity or intermittently. 3-Partial/Moderate Assistance-helper does LESS THAN HALF the effort. [place] lifts, holds or supports trunk or limbs, but provides less than half the effort. 2-Substantial/Maximal Assistance-helper does MORE THAN HALF the effort. [place] lifts or holds trunk or limbs and provides more than half the effort. 8-Nzytbypiy-imkicd does ALL the effort. Patient does none of the effort to complete the activity. Or, the assistance of 2 or more helpers is required for the patient to complete the activity. If activity was not attempted, code reason: 7-Patient Refused. 9-Not Applicable-not attempted and the patient did not perform the activity before the current illness, exacerbation or injury. 10-Not Attempted due to Environmental Limitations-(lack of equipment, weather restraints, etc.). 88-Not Attempted due to Medical Conditions or Safety Concerns. Roll Left to Right (QC): 4 Sit to Lying (QC): 4 Sit to Stand (QC): 4 Chair/Bus-eo[place] Xfer(QC): 4 Car Transfer (QC): 3 Gait Training Does the Patient Walk?: Yes Distance: 50 feet x 2 Walk 10 feet (QC): 4 Walk 50 ft with 2 Turns(QC): 4 Walk 150 ft (QC): 88 Walking 10ft/uneven surface-QC: 4 Gait Persons Needed: 1 Gait Assistive Device: FWW Wheelchair Training Does the Pt Use a Wheelchair?: Yes Distance: 20' Wheel 50 ft with 2 turns (QC): 88 Wheel 150 ft (QC): 88 Type of Wheelchair: Manual Stair Training 1 Step (curb) (QC): 88 4 Steps (QC): 88 12 Steps (QC): 88 Balance Picking up an Object (QC): 4 (CGA using a radar technician.) ADL-Treatment Eating (QC): 6 Oral Hygiene (QC): 5 Shower/Bathe Self (QC): 6 Upper Body Dressing (QC): 4 (SBA) Lower Body Dressing (QC): 4 (SBA) On/Off Footwear (QC): 3 (Min A with R gripper sock donning/doffing. Pt able to complete L gripper sock.) Toileting Hygiene (QC): 2 Toilet Transfer (QC): 6 Assessment/Plan Assessment and Plan Assess & Plan/Chief Complaint Assessment: Cardiogenic shock Debility LUIS Liver shock AF PAF s/p RVR Liver shock s/p E coli severe sepsis UTI Hypoxia Volume overload HTN OOC Bradycardia Pacemaker Epistaxis resolved Anemia hgb 8.8 Plan: Monitor creat Monitor CHF Monitor O2 Completed abx 05/25/2022: Avelina Haddad for I/O's Appreciate Dr Lundberg 05/26/2022: Diuresis Monitor closely 05/27/2022: Ambulate Monitor closely 05/28/2022: Discontinue catheter tomorrow 05/29/2022: Monitor weight Monitor creatinine Haddad discontinued today 05/30/2022: Monitor creat and hgb (1) Cardiogenic shock Status: Resolved (2) Septic shock Status: Resolved (3) Splenic cyst Status: Acute (4) Hypercalcemia Status: Acute (5) ATN (acute tubular necrosis) Status: Acute (6) Gilbert syndrome Status: Chronic (7) Lactic acidosis Status: Resolved Resolution Date/Time: 05/19/22 @ 19:07 (8) E. coli UTI Status: Acute (9) Shock liver Status: Acute (10) Unconjugated hyperbilirubinemia Status: Acute (11) Acute on chronic HFrEF (heart failure with reduced ejection fraction) Status: Acute (12) NSTEMI (non-ST elevation myocardial infarction) Status: Acute (13) Paroxysmal atrial fibrillation with RVR (14) Vomiting in adult Status: Acute ANNEL ESTES DO May 30, 2022 05:16
[2022-05-30] MEDS: VENlafaxine XR 75 MG (EFFEXOR XR) CAP PO SCH (06:03)
[2022-05-30] MEDS: KCL 10 MEQ TAB (MICRO K) PO SCH (06:03)
[2022-05-30] MEDS: CATHETER FLUSH 10 ML SYR IVP SCH ×3 (06:04→21:21)
[2022-05-30 06:16] LABS: BASOPHILS # (AUTO) 0.1 10^3/uL (0.0-0.1); BASOPHILS % (AUTO) 1 % (0-10); EOSINOPHILS # (AUTO) 0.3 10^3/uL (0.0-0.3); EOSINOPHILS % (AUTO) 4 % (0-10); HEMATOCRIT 28 % (35-52); HEMOGLOBIN 8.8 g/dL (11.5-16.0); LYMPHOCYTES % (AUTO) 14 % (12-44); MEAN CORPUSCULAR HEMOGLOBIN 29 pg (25-34); MEAN CORPUSCULAR HGB CONC 32 g/dL (32-36); MEAN CORPUSCULAR VOLUME 89 fL (80-99); MEAN PLATELET VOLUME 10.9 fL (9.0-12.2); MONOCYTES # (AUTO) 0.8 10^3/uL (0.0-1.0); MONOCYTES % (AUTO) 11 % (0-12); NEUTROPHILS # (AUTO) 4.8 10^3/uL (1.8-7.8); NEUTROPHILS % (AUTO) 69 % (42-75); PLATELET COUNT 148 10^3/uL (130-400)
[2022-05-30 06:32] LABS: POTASSIUM 4.1 MMOL/L (3.6-5.0)
[2022-05-30 06:33] LABS: CALCIUM 9.8 MG/DL (8.5-10.1)
[2022-05-30 06:34] LABS: TOTAL PROTEIN 5.9 GM/DL (6.4-8.2)
[2022-05-30 06:36] LABS: BILIRUBIN,TOTAL 1.9 MG/DL (0.1-1.0)
[2022-05-30 06:38] LABS: CREATININE SERUM 2.49 MG/DL (0.60-1.30)
[2022-05-30 07:31] VITALS: BP 154/79
[2022-05-30] MEDS: amLODIPine 10 MG (NORVASC) TAB PO SCH (07:36)
[2022-05-30] MEDS: EMPAGLIFLOZIN 10 MG TABLET (JARDIANCE) PO SCH (07:36)
[2022-05-30] MEDS: LETROZOLE 2.5 MG (FEMARA) TAB PO SCH (07:37)
[2022-05-30] MEDS: CYANOCOBALAMIN 1,000 MCG (VITAMIN B-12) TABLET PO SCH (07:37)
[2022-05-30] MEDS: polyethylene glycoL POWDER 17 GM (MIRALAX) PACK PO SCH ×2 (07:37→21:15)
[2022-05-30] MEDS: doxAzosin 4 MG (CARDURA) TAB PO SCH ×2 (07:37→21:21)
[2022-05-30] MEDS: DOCUSATE SODIUM 100 MG (COLACE) CAP PO SCH ×2 (07:37→21:15)
[2022-05-30] MEDS: FUROSEMIDE 40 MG (LASIX) TAB PO SCH (07:37)
[2022-05-30] MEDS: APIXABAN 5 MG (ELIQUIS) TABLET PO SCH ×2 (07:37→21:21)
[2022-05-30] MEDS: LACTOBACILLUS ACIDOPHILUS (PROBIOTIC) CAPSULE PO SCH ×3 (07:37→17:08)
[2022-05-30] MEDS: SENNOSIDES 8.6 MG (SENOKOT) TAB PO SCH ×2 (07:38→21:15)
[2022-05-30] MEDS: SALINE NASAL SPRAY (OCEAN) 45 ML BTL SCH ×4 (07:38→21:24)
--- NOTE | 2022-05-30 08:50 | Progress Note - Cardiology ---
Cardiology SOAP Progress Note Subjective: Sitting up in recliner at the bedside Continues to c/o fatigue and gen weakness C/O LE swelling Objective: I&O/Vital Signs 05/30/22 05/30/22 07:31 08:38 Temp 36.5 Pulse 66 Resp 18 B/P (MAP) 154/79 (104) Pulse Ox 97 O2 Delivery Room Air Room Air 05/30/22 00:00 Intake Total 800 ml Output Total 810 ml Balance -10 ml Weight (Pounds): 230 Weight (Ounces): 0.0 Weight (Calculated Kilograms): 104.066243 Constitutional: AAO x 3, well-developed, well-nourished Respiratory: No accessory muscle use; other (fair, bilateral air entry, diminished at the bases) Cardiovascular: regular rate-rhythm, S1 and S2, systolic murmur (soft YASSINE at card base) Gastrointestional: No tender; soft; No guarding, No rebound; audible bowel sounds Extremities: other (chronic edema of the L arm; mod bilat LE swelling (improved from Monday)); No clubbing, No cyanosis Neurologic/Psychiatric: oriented x 3, other (moves all limbs equally) Skin: No rash on exposed areas, No ulcerations on exposed areas Results/Procedures: Labs Laboratory Tests 05/30/22 06:05: White Blood Count 7.0, Red Blood Count 3.08L, Hemoglobin 8.8L, Hematocrit 28L, Mean Corpuscular Volume 89, Mean Corpuscular Hemoglobin 29, Mean Corpuscular Hemoglobin Concent 32, Red Cell Distribution Width 17.9H, Platelet Count 148, Mean Platelet Volume 10.9, Immature Granulocyte % (Auto) 1, Neutrophils (%) (Auto) 69, Lymphocytes (%) (Auto) 14, Monocytes (%) (Auto) 11, Eosinophils (%) (Auto) 4, Basophils (%) (Auto) 1, Neutrophils # (Auto) 4.8, Lymphocytes # (Auto) 1.0, Monocytes # (Auto) 0.8, Eosinophils # (Auto) 0.3, Basophils # (Auto) 0.1, Immature Granulocyte # (Auto) 0.0, Sodium Level 140, Potassium Level 4.1, Chloride Level 106, Carbon Dioxide Level 23, Anion Gap 11, Blood Urea Nitrogen 41H, Creatinine 2.49H, Estimat Glomerular Filtration Rate 20, BUN/Creatinine Ratio 16, Glucose Level 74, Calcium Level 9.8, Corrected Calcium 10.6H, Total Bilirubin 1.9H, Aspartate Amino Transf (AST/SGOT) 23, Alanine Aminotransferase (ALT/SGPT) 127H, Alkaline Phosphatase 100, Total Protein 5.9L, Albumin 3.0L Microbiology 05/28/22 C. difficile GDH Antigen & Toxins - Final, Complete A/P: Assessment: Shock: septic and/or cardiogenic - mild troponin elevation due to type 2 NC due to hypotension - shock now resolved; currently hypertensive Hepatitis and jaundice of undetermined etiology - managed by the [facility] [place] Coagulopathy - due to hepatic failure and due to apixaban - improved PAF - Apixaban held during marked hepatic impairment, now resumed Chronic HFrEF due to NICM (primarily managed by her register repairer Dr Woodward in [place], [place]) - Echocardiogram of 04-08-[address] Felton showed LVEF 10-15% with severe diffuse hypokinesis. LA and RA dilated. Mod to severe AoR. Mod MR. Mod to severe TR. PASP 50-55 mmHg - She reports she had a sleep study done that was "inconclusive" - she does not use CPAP or supplemental oxygen - managed by Dr. Kirk - AICD - implanted in September 2021 at [facility] (single chamber device) - followed by Dr. Woodward - Echo on 05-17-22: LVEF 20-25%, global hypokinesis of LV, mild to mod MR, PASP 35-40 mmHg Acute renal failure - ATN due to hypotension vs hepatorenal syndrome - Cr improving gradually HLD - statin tx H/o DVT R leg - OAC with Eliquis H/O Breast Cancer - has had a mastectomy Gen weakness - d/t prolonged critical illness Chronic lymphedema of the SUSAN Plan: * Complex management due to multiple comorbidities * BP fairly well controlled * Continuing to hold off on increasing her beta-dai because of continued intermittently bradycardic overnight * Not suitable for NIRALI-inhib/ARB due to renal failure * Renal function essentially stable with addition of diuretics (she feels her swelling is unchanged, however, on physical exam her upper and lower extremity swelling has improved from last week) * Monitor lab closely * Advise compression stockings on in the am and off at hs JOSIE WINKLER May 30, 2022 08:50
--- NOTE | 2022-05-30 09:36 | Occupational Ther Daily Note ---
OT Current Status-Daily Note Subjective Pt alert, sitting on toilet. Pt agrees to therapy. Pt states that she had been dizzy when transferring to toilet with nrsg and sat for awhile until the dizziness decreased. Mental Status/Objective Patient Orientation: Person, Place, Time, Situation Attachments: IV, Other-See Comments (Pacemaker/defibrilator) ADL-Treatment Pt agrees to shower. SBA for toileting. Sitting on shower bench 100% of the time, pt completed shower independently using hand held shower and grabbars. Pt declines regular clothing. Set up donning/doffing brief. Pt declines socks at this time. Sitting at sink, pt completes oral care independently. After session, pt sitting in recliner with call light/phone in reach. All needs met in room. Therapy Code Descriptions/Definitions Functional [place] Measure: 0=Not Assessed/NA 4=Minimal Assistance 1=Total Assistance 5=Supervision or Setup 2=Maximal Assistance 6=Modified [place] 3=Moderate Assistance 7=Complete IndependenceSCALE: Activities may be completed with or without assistive devices. 2-Vecczofsmp-jjlsqan completes the activity by him/herself with no assistance from a helper. 5-Set-up or Clean-up Assistance-helper sets up or cleans up; patient completes activity. [place] assists only prior to or following the activity. 4-Supervision or Touching Assistance-helper provides verbal cues and/or touching/steadying and/or contact guard assistance as patient completes activity. Assistance may be provided throughout the activity or intermittently. 3-Partial/Moderate Assistance-helper does LESS THAN HALF the effort. [place] lifts, holds or supports trunk or limbs, but provides less than half the effort. 2-Substantial/Maximal Assistance-helper does MORE THAN HALF the effort. [place] lifts or holds trunk or limbs and provides more than half the effort. 8-Tbmlgmyrp-wzlsyq does ALL the effort. Patient does none of the effort to complete the activity. Or, the assistance of 2 or more helpers is required for the patient to complete the activity. If activity was not attempted, code reason: 7-Patient Refused. 9-Not Applicable-not attempted and the patient did not perform the activity before the current illness, exacerbation or injury. 10-Not Attempted due to Environmental Limitations-(lack of equipment, weather restraints, etc.). 88-Not Attempted due to Medical Conditions or Safety Concerns. Oral Hygiene (QC): 6 Shower/Bathe Self (QC): 6 Upper Body Dressing (QC): 5 Lower Body Dressing (QC): 5 Toileting Hygiene (QC): 4 Toilet Transfer (QC): 4 OT Short Term Goals Short Term Goals Time Frame: Jun 08, 2022 Shower/bathe self: 5 Upper body dressin Lower body dressin Putting on/taking off footwear: 5 OT [place] Goals [place] Goals Time Frame: Jun 17, 2022 Acute change in mental status: 0 Inattention: 0 Disorganized thinkin Altered level of consciousness: 0 Eating (QC): 6 Oral Hygiene (QC): 6 Toileting Hygiene (QC): 6 Shower/Bathe Self (QC): 6 Upper Body Dressing (QC): 6 Lower Body Dressing (QC): 6 On/Off Footwear (QC): 6 Additional Goals: 1-Demonstrate ADL Tasks, 2-Verbalize Understanding, 3- ImproveStrength/Jamir 1=Demonstrate adherence to instructed precautions during ADL tasks. 2=Patient will verbalize/demonstrate understanding of assistive devices/modifications for ADL. 3=Patient will improve strength/tolerance for activity to enable patient to perform ADL's. OT Education/Plan Problem List/Assessment Assessment: Decreased Activ Tolerance, Impaired Self-Care Skills Discharge Recommendations Plan/Recommendations: Continue POC Treatment Plan/Plan of Care Patient would benefit from OT for education, treatment and training to promote independence in ADL's, mobility, safety and/or upper extremity function for ADL's. Plan of Care: ADL Retraining, Functional Mobility, Group Exercise/Act as Ind, UE Funct Exercise/Act, OTHER (edema management UEs) Treatment Duration: Jun 17, 2022 Frequency: At least 5 of 7 days/Wk (IRF) Estimated Hrs Per Day: 1.5 hours per day Agreement: Yes Rehab Potential: Fair Time Start Time: 08:45 Stop Time: 10:00 DATE: May 30, 2022 Total Time Billed (hr/min): 75 Billed Treatment Time 1 visit-ADL 5 (75 min) DEVORAH ELKINS May 30, 2022 09:36
--- NOTE | 2022-05-30 09:44 | Progress Note - Cardiology ---
Cardiology SOAP Progress Note Subjective: No cp or palp or syncope Shortness of breath and weakness improving No n/v/d Objective: I&O/Vital Signs 05/30/22 05/30/22 07:31 08:38 Temp 36.5 Pulse 66 Resp 18 B/P (MAP) 154/79 (104) Pulse Ox 97 O2 Delivery Room Air Room Air 05/30/22 00:00 Intake Total 800 ml Output Total 810 ml Balance -10 ml Weight (Pounds): 230 Weight (Ounces): 0.0 Weight (Calculated Kilograms): [id number] Constitutional: AAO x 3, well-developed, well-nourished Respiratory: No accessory muscle use; other (fair, bilateral air entry, diminished at the bases) Cardiovascular: regular rate-rhythm, S1 and S2, systolic murmur (soft YASSINE at card base) Gastrointestional: No tender; soft; No guarding, No rebound; audible bowel sounds Extremities: other (chronic edema of the L arm; mod bilat LE swelling (improved from Monday)); No clubbing, No cyanosis Neurologic/Psychiatric: oriented x 3, other (moves all limbs equally) Skin: No rash on exposed areas, No ulcerations on exposed areas Results/Procedures: Labs Laboratory Tests 05/30/22 06:05: White Blood Count 7.0, Red Blood Count 3.08L, Hemoglobin 8.8L, Hematocrit 28L, Mean Corpuscular Volume 89, Mean Corpuscular Hemoglobin 29, Mean Corpuscular Hemoglobin Concent 32, Red Cell Distribution Width 17.9H, Platelet Count 148, Mean Platelet Volume 10.9, Immature Granulocyte % (Auto) 1, Neutrophils (%) (Auto) 69, Lymphocytes (%) (Auto) 14, Monocytes (%) (Auto) 11, Eosinophils (%) (Auto) 4, Basophils (%) (Auto) 1, Neutrophils # (Auto) 4.8, Lymphocytes # (Auto) 1.0, Monocytes # (Auto) 0.8, Eosinophils # (Auto) 0.3, Basophils # (Auto) 0.1, Immature Granulocyte # (Auto) 0.0, Sodium Level 140, Potassium Level 4.1, Chloride Level 106, Carbon Dioxide Level 23, Anion Gap 11, Blood Urea Nitrogen 41H, Creatinine 2.49H, Estimat Glomerular Filtration Rate 20, BUN/Creatinine Ratio 16, Glucose Level 74, Calcium Level 9.8, Corrected Calcium 10.6H, Total Bilirubin 1.9H, Aspartate Amino Transf (AST/SGOT) 23, Alanine Aminotransferase (ALT/SGPT) 127H, Alkaline Phosphatase 100, Total Protein 5.9L, Albumin 3.0L Microbiology 05/28/22 C. difficile GDH Antigen & Toxins - Final, Complete Laboratory Tests 05/29/22 05:50 05/30/22 06:05 A/P: Assessment: Shock: septic and/or cardiogenic - mild troponin elevation due to type 2 OH due to hypotension - shock now resolved; currently hypertensive Hepatitis and jaundice of undetermined etiology - managed by the [facility] Coagulopathy - due to hepatic failure and due to apixaban - improved PAF - Apixaban held during marked hepatic impairment, now resumed Chronic HFrEF due to NICM (primarily managed by her weaver tire cord Dr Woodward in [place], [place]) - Echocardiogram of 04-08-[address] Felton showed LVEF 10-15% with severe diffuse hypokinesis. LA and RA dilated. Mod to severe AoR. Mod MR. Mod to severe TR. PASP 50-55 mmHg - She reports she had a sleep study done that was "inconclusive" - she does not use CPAP or supplemental oxygen - managed by Dr. Kirk - AICD - implanted in September 2021 at [facility] (single chamber device) - followed by Dr. Woodward - Echo on 05-17-22: LVEF 20-25%, global hypokinesis of LV, mild to mod MR, PASP 35-40 mmHg Acute renal failure - ATN due to hypotension vs hepatorenal syndrome - Cr improved but now appears to have stagnated HLD - statin tx H/o DVT R leg - OAC with Eliquis H/O Breast Cancer - has had a mastectomy Gen weakness - d/t prolonged critical illness Chronic lymphedema of the SUSAN Plan: * Complex management due to multiple comorbidities * BP fairly well controlled * Continuing to hold off on increasing her beta-dai because of continued intermittently bradycardic overnight * Not suitable for NIRALI-inhib/ARB due to renal failure (which still persists) * Renal function essentially stable with addition of diuretics (she feels her swelling is unchanged, however, on physical exam her upper and lower extremity swelling has improved from last week) * Monitor lab closely * Advise compression stockings on in the am and off at hs CHAU POPE MD [facility] CCDS May 30, 2022 09:44
--- NOTE | 2022-05-30 10:48 | Progress Note ---
ALECIA ORTIZ 05/30/22 1048: Progress Note PT is going well Haddad removed yesterday Voiding fine Continued mild epistaxis Bilateral lower extremity edema present Patient is taking lasix VENITA ESTES DO 05/31/22 0517: Supervisory-Addendum Brief Verification & Attestation Participated in pt care: history, MDM, physical Personally performed: exam, history, MDM, supervision of care Care discussed with: Medical Student Procedures: n/a Results interpretation: Verified all documentation Verification and Attestation of Medical Student E/M Service A medical student performed and documented this service in my presence. I reviewed and verified all information documented by the medical student and made modifications to such information, when appropriate. I personally performed the physical exam and medical decision making. Venita Estes, May 31, 2022,05:17 ALECIA ORTIZ May 30, 2022 10:48 VENITA ESTES DO May 31, 2022 05:17
--- NOTE | 2022-05-30 12:02 | Physical Therapy Daily Note ---
PT Daily Note-Current Subjective Pt sitting in recliner after just finishing OT. Pt agrees to PT but reports fatigue. Pain Location: No Pain Reported Section J - Health Conditions 1. Rarely or not at all 2. Occasionally 3. Frequently 4. Almost constantly 8. Unable to answer Pain Effect on Sleep: 1 Pain Interference with Therapy: 1 Pain Interference w/Day-to-Day: 1 Mental Status Patient Orientation: Person, Place, Time, Situation Transfers SCALE: Activities may be completed with or without assistive devices. 4-Hcfdcsnvue-dvqwupb completes the activity by him/herself with no assistance from a helper. 5-Set-up or Clean-up Assistance-helper sets up or cleans up; patient completes activity. [place] assists only prior to or following the activity. 4-Supervision or Touching Assistance-helper provides verbal cues and/or touching/steadying and/or contact guard assistance as patient completes activity. Assistance may be provided throughout the activity or intermittently. 3-Partial/Moderate Assistance-helper does LESS THAN HALF the effort. [place] lifts, holds or supports trunk or limbs, but provides less than half the effort. 2-Substantial/Maximal Assistance-helper does MORE THAN HALF the effort. [place] lifts or holds trunk or limbs and provides more than half the effort. 3-Kojlydpuo-jvflzy does ALL the effort. Patient does none of the effort to complete the activity. Or, the assistance of 2 or more helpers is required for the patient to complete the activity. If activity was not attempted, code reason: 7-Patient Refused. 9-Not Applicable-not attempted and the patient did not perform the activity before the current illness, exacerbation or injury. 10-Not Attempted due to Environmental Limitations-(lack of equipment, weather restraints, etc.). 88-Not Attempted due to Medical Conditions or Safety Concerns. Sit to Stand (QC): 4 Weight Bearing Full Weight Bearing Full Weight Bearing Gait Training Walk 50 ft with 2 Turns(QC): 4 Gait Assistive Device: FWW Exercises Supine Ex: Ankle pumps, Quad Set, Glut sets, Hip abd/add Supine Reps: 15 Seated Therapy Exercises: Ankle pumps, Sit to stand, Long arc quads, Hip flexion, Hip abd/add, Glut set Seated Reps: 15 Treatments Pt completes Supine & Seated Ex w/RB as needed. Pt & ROUSTABOUT HAND discuss medical history difficulty pt has had and pt is afraid of going home and being lazy. Pt is given suggestions as to what pt can do to combat this and work on strengthening & mobility at home. All needs met, call light in hand. Assessment Current Status: Fair Progress Pt is fatigued after just finishing tx w/OT. PT Short Term Goals Short Term Goals Time Frame: May 31, 2022 Sit to lyin (Gladys) Lying to sitting on side of be: 3 (Gladys) Sit to stand: 4 (SBA) Chair/tdc-pf-apivp transfer: 4 (SBA) Walk 10 feet: 4 (SBA) Walk 50 feet with two turns: 4 (SBA) PT Professor Of Economics Goals Professor Of Economics Goals PT Professor Of Economics Goals Time Frame: Jun 07, 2022 Roll Left & Right (QC): 6 Sit to Lying (QC): 4 (SBA) Lying-Sitting on Side/Bed(QC): 4 (SBA) Sit to Stand (QC): 6 Chair/Ndd-dm-Xcadl Xfer(QC): 6 Toilet Transfer (QC): 6 Car Transfer (QC): 4 (SBA) Does the Patient Walk: Yes Walk 10 feet (QC): 6 Walk 50ft with 2 Turns (QC): 6 Walk 150 ft (QC): 88 Walking 10ft on Uneven Surface: 6 1 Step (curb) (QC): 88 4 Steps (QC): 88 12 Steps (QC): 88 Picking up an Object (QC): 6 (using box spring frame builder) Wheel 50 feet with 2 turns (QC: 9 Wheel 150 feet: 9 PT Plan Problem List Problem List: Activity Tolerance, Functional Strength Treatment/Plan Treatment Plan: Continue Plan of Care Treatment Plan: Bed Mobility, Education, Functional Activity Jamir, Functional Strength, Group Therapy, Gait, Safety, Therapeutic Exercise, Transfers Treatment Duration: Jun 07, 2022 Frequency: At least 5 of 7 days/Wk (IRF) Estimated Hrs Per Day: 1.5 hours per day Patient and/or Family Agrees t: Yes Time Time In: 1000 Time Out: 1100 DATE: May 30, 2022 Total Billed Treatment Time: 60 Total Billed Treatment 1, FA x2 (30m) & EX x2 (30m) NEENA PENN ROUSTABOUT HAND May 30, 2022 12:01
[2022-05-30] MEDS: ACETAMINOPHEN 325 MG TABLET PO PRN (12:59)
--- NOTE | 2022-05-30 13:31 | Occupational Ther Daily Note ---
OT Current Status-Daily Note Subjective Pt alert, sitting in recliner. Pt agrees to therapy. Pt procrastinates completing therapy by conversing a lot. Mental Status/Objective Patient Orientation: Person, Place, Time, Situation Attachments: IV, Other-See Comments (Pacemaker/defibrilator) ADL-Treatment Therapy Code Descriptions/Definitions Functional [place] Measure: 0=Not Assessed/NA 4=Minimal Assistance 1=Total Assistance 5=Supervision or Setup 2=Maximal Assistance 6=Modified [place] 3=Moderate Assistance 7=Complete IndependenceSCALE: Activities may be completed with or without assistive devices. 3-Ysowpojwnj-xkgbrgg completes the activity by him/herself with no assistance f rom a helper. 5-Set-up or Clean-up Assistance-helper sets up or cleans up; patient completes activity. [place] assists only prior to or following the activity. 4-Supervision or Touching Assistance-helper provides verbal cues and/or touching/steadying and/or contact guard assistance as patient completes activity. Assistance may be provided throughout the activity or intermittently. 3-Partial/Moderate Assistance-helper does LESS THAN HALF the effort. [place] lifts, holds or supports trunk or limbs, but provides less than half the effort. 2-Substantial/Maximal Assistance-helper does MORE THAN HALF the effort. [place] lifts or holds trunk or limbs and provides more than half the effort. 3-Kfmdoythn-cdslsk does ALL the effort. Patient does none of the effort to complete the activity. Or, the assistance of 2 or more helpers is required for the patient to complete the activity. If activity was not attempted, code reason: 7-Patient Refused. 9-Not Applicable-not attempted and the patient did not perform the activity before the current illness, exacerbation or injury. 10-Not Attempted due to Environmental Limitations-(lack of equipment, weather restraints, etc.). 88-Not Attempted due to Medical Conditions or Safety Concerns. Other Treatment Pt discussed home environment and things that she needs to be able to do. Pt declines using AE for lower body dressing, stating that she just wants to challenge herself. After therapy, pt sitting in recliner with call light/phone in reach. All needs met in room. OT Short Term Goals Short Term Goals Time Frame: Jun 08, 2022 Shower/bathe self: 5 Upper body dressin Lower body dressin Putting on/taking off footwear: 5 OT Enterprise Architect Goals Jail Goals Time Frame: Jun 17, 2022 Acute change in mental status: 0 Inattention: 0 Disorganized thinkin Altered level of consciousness: 0 Eating (QC): 6 Oral Hygiene (QC): 6 Toileting Hygiene (QC): 6 Shower/Bathe Self (QC): 6 Upper Body Dressing (QC): 6 Lower Body Dressing (QC): 6 On/Off Footwear (QC): 6 Additional Goals: 1-Demonstrate ADL Tasks, 2-Verbalize Understanding, 3- ImproveStrength/Jamir 1=Demonstrate adherence to instructed precautions during ADL tasks. 2=Patient will verbalize/demonstrate understanding of assistive devices/modifications for ADL. 3=Patient will improve strength/tolerance for activity to enable patient to perform ADL's. OT Education/Plan Problem List/Assessment Assessment: Decreased Activ Tolerance, Impaired Self-Care Skills Discharge Recommendations Plan/Recommendations: Continue POC Treatment Plan/Plan of Care Patient would benefit from OT for education, treatment and training to promote independence in ADL's, mobility, safety and/or upper extremity function for ADL's. Plan of Care: ADL Retraining, Functional Mobility, Group Exercise/Act as Ind, UE Funct Exercise/Act, OTHER (edema management UEs) Treatment Duration: Jun 17, 2022 Frequency: At least 5 of 7 days/Wk (IRF) Estimated Hrs Per Day: 1.5 hours per day Agreement: Yes Rehab Potential: Fair Time Start Time: 13:00 Stop Time: 13:15 DATE: May 30, 2022 Total Time Billed (hr/min): 15 Billed Treatment Time 1 visit-FA 1 (15 min) DEVORAH ELKINS May 30, 2022 13:31
--- NOTE | 2022-05-30 16:07 | Physical Therapy Daily Note ---
PT Daily Note-Current Subjective Pt sitting in recliner upon arrival. Pt has just finished w/OT upon arrival. Pain Location: No Pain Reported Section J - Health Conditions 1. Rarely or not at all 2. Occasionally 3. Frequently 4. Almost constantly 8. Unable to answer Pain Effect on Sleep: 1 Pain Interference with Therapy: 1 Pain Interference w/Day-to-Day: 1 Mental Status Patient Orientation: Person, Place, Time, Situation Transfers SCALE: Activities may be completed with or without assistive devices. 4-Komdxeymuj-rmetkvy completes the activity by him/herself with no assistance from a helper. 5-Set-up or Clean-up Assistance-helper sets up or cleans up; patient completes activity. [place] assists only prior to or following the activity. 4-Supervision or Touching Assistance-helper provides verbal cues and/or touching/steadying and/or contact guard assistance as patient completes activity. Assistance may be provided throughout the activity or intermittently. 3-Partial/Moderate Assistance-helper does LESS THAN HALF the effort. [place] lifts, holds or supports trunk or limbs, but provides less than half the effort. 2-Substantial/Maximal Assistance-helper does MORE THAN HALF the effort. [place] lifts or holds trunk or limbs and provides more than half the effort. 0-Mwwkiqolr-svkopb does ALL the effort. Patient does none of the effort to complete the activity. Or, the assistance of 2 or more helpers is required for the patient to complete the activity. If activity was not attempted, code reason: 7-Patient Refused. 9-Not Applicable-not attempted and the patient did not perform the activity before the current illness, exacerbation or injury. 10-Not Attempted due to Environmental Limitations-(lack of equipment, weather restraints, etc.). 88-Not Attempted due to Medical Conditions or Safety Concerns. Weight Bearing Full Weight Bearing Full Weight Bearing Exercises Seated Therapy Exercises: Ankle pumps, Long arc quads, Hip flexion, Hip abd/add, Glut set Seated Reps: 15 Treatments CAD DESIGN ENGINEER has to continue to keep pt on track as pt wanted to tell stories during tx. Pt completed Seated EX and declines need for BR. Pt B legs are elevated and repositioned to comfort. All needs met, call light in hand. Assessment Current Status: Fair Progress Pt fatigues easily and needs frequent RB. PT Short Term Goals Short Term Goals Time Frame: May 31, 2022 Sit to lyin (Gladys) Lying to sitting on side of be: 3 (Gladys) Sit to stand: 4 (SBA) Chair/fdr-dp-antvs transfer: 4 (SBA) Walk 10 feet: 4 (SBA) Walk 50 feet with two turns: 4 (SBA) PT Fdc Goals Felt Cutter Goals PT Felt Cutter Goals Time Frame: Jun 07, 2022 Roll Left & Right (QC): 6 Sit to Lying (QC): 4 (SBA) Lying-Sitting on Side/Bed(QC): 4 (SBA) Sit to Stand (QC): 6 Chair/Goq-hd-Pvskp Xfer(QC): 6 Toilet Transfer (QC): 6 Car Transfer (QC): 4 (SBA) Does the Patient Walk: Yes Walk 10 feet (QC): 6 Walk 50ft with 2 Turns (QC): 6 Walk 150 ft (QC): 88 Walking 10ft on Uneven Surface: 6 1 Step (curb) (QC): 88 4 Steps (QC): 88 12 Steps (QC): 88 Picking up an Object (QC): 6 (using director health) Wheel 50 feet with 2 turns (QC: 9 Wheel 150 feet: 9 PT Plan Problem List Problem List: Activity Tolerance, Functional Strength Treatment/Plan Treatment Plan: Continue Plan of Care Treatment Plan: Bed Mobility, Education, Functional Activity Jamir, Functional Strength, Group Therapy, Gait, Safety, Therapeutic Exercise, Transfers Treatment Duration: Jun 07, 2022 Frequency: At least 5 of 7 days/Wk (IRF) Estimated Hrs Per Day: 1.5 hours per day Patient and/or Family Agrees t: Yes Time Time In: 1330 Time Out: 1400 DATE: May 30, 2022 Total Billed Treatment Time: 30 Total Billed Treatment 1, FA x2 (30m) NEENA PENN PTA May 30, 2022 16:07
[2022-05-30 19:34] VITALS: BP 99/62
[2022-05-30 20:31] VITALS: BP 117/67
[2022-05-30 21:10] VITALS: BP 128/60
[2022-05-30] MEDS: MECLIZINE 25 MG (ANTIVERT) TAB PO SCH (21:20)
--- NOTE | 2022-05-31 06:27 | PM&R Progress Note ---
Subjective HPI/CC On Admission Date Seen by Provider: May 31, 2022 Time Seen by Provider: 08:30 Subjective/Events-last exam 05/31/2022: Doing well Less lethargy Creatinine stable BP stable No concerns except edema of the legs 05/30/2022: Doing well Improved overall No pain reported Edema persists Labs reviewed 05/29/2022: Patient doing really well Appears improved every day Still gaining water weight Labs reviewed Mild epistaxis every day 05/28/2022: Patient doing well Moving around better Discontinue catheter tomorrow she is reluctant that needs to be done Eating and drinking well Bowels are moving No more epistaxis 05/27/2022: Making some progress Less weak Haddad cath still in place Purewick did not work for her in the past Incontinence is disturbing for her Participation is improved 05/26/2022: Improved status Very debilitated Labs improved Lasix improved edema Remains with Haddad Incontinence normally 05/25/2022: Slow moving today Labs reviewed Appreciate Dr Lundberg direction on bradycardia and HTN Labs reviewed Haddad cath in place Lasix given Third-spacing of fluid noted Nosebleeds so will initiate saline spray Review of Systems General: Fatigue, Malaise Cardiovascular: Edema Objective Exam Vital Signs Vital Signs Date Time Temp Pulse Resp B/P (MAP) Pulse Ox O2 Delivery O2 Flow Rate FiO2 05/31/22 17:33 64 18 97 Room Air 05/31/22 13:51 133/62 (85) 05/31/22 08:32 36.8 Capillary Refill : General Appearance: No Apparent Distress, WD/WN, Chronically ill, Obese HEENT: PERRL/EOMI, Normal ENT Inspection, Pharynx Normal Neck: Full Range of Motion, Normal Inspection, Non Tender, Supple, Carotid Bruit Respiratory: Chest Non Tender, Lungs Clear, No Accessory Muscle Use, No Respiratory Distress, Decreased Breath Sounds Cardiovascular: Regular Rate, Rhythm, No Gallop, No JVD, No Murmur, Normal Peripheral Pulses Gastrointestinal: Normal Bowel Sounds, No Organomegaly, No Pulsatile Mass, Non Tender, Soft Back: Normal Inspection, No CVA Tenderness, No Vertebral Tenderness Extremity: Normal Capillary Refill, Normal Inspection, Normal Range of Motion, Non Tender, No Calf Tenderness, Pedal Edema Neurologic/Psychiatric: Alert, Oriented x3, Normal Mood/Affect, child protective investigator II-XII Norm as Tested, Abnormal Gait, Motor Weakness (generalized) Skin: Normal Color, Warm/Dry Lymphatic: No Adenopathy Results/Procedures Lab Laboratory Tests 05/31/22 06:25 Patient resulted labs reviewed. FIM Transfers Therapy Code Descriptions/Definitions Functional [place] Measure: 0=Not Assessed/NA 4=Minimal Assistance 1=Total Assistance 5=Supervision or Setup 2=Maximal Assistance 6=Modified [place] 3=Moderate Assistance 7=Complete IndependenceSCALE: Activities may be completed with or without assistive devices. 8-Tswirlzmyh-asgngvj completes the activity by him/herself with no assistance from a helper. 5-Set-up or Clean-up Assistance-helper sets up or cleans up; patient completes activity. [place] assists only prior to or following the activity. 4-Supervision or Touching Assistance-helper provides verbal cues and/or touching/steadying and/or contact guard assistance as patient completes activity. Assistance may be provided throughout the activity or intermittently. 3-Partial/Moderate Assistance-helper does LESS THAN HALF the effort. [place] lifts, holds or supports trunk or limbs, but provides less than half the effort. 2-Substantial/Maximal Assistance-helper does MORE THAN HALF the effort. [place] lifts or holds trunk or limbs and provides more than half the effort. 8-Ivdgzkqtd-hizfhn does ALL the effort. Patient does none of the effort to complete the activity. Or, the assistance of 2 or more helpers is required for the patient to complete the activity. If activity was not attempted, code reason: 7-Patient Refused. 9-Not Applicable-not attempted and the patient did not perform the activity before the current illness, exacerbation or injury. 10-Not Attempted due to Environmental Limitations-(lack of equipment, weather restraints, etc.). 88-Not Attempted due to Medical Conditions or Safety Concerns. Roll Left to Right (QC): 4 Sit to Lying (QC): 4 Sit to Stand (QC): 4 Chair/Ywn-cb-Rhwua Xfer(QC): 4 Car Transfer (QC): 3 Gait Training Does the Patient Walk?: Yes Distance: 50 feet x 2 Walk 10 feet (QC): 4 Walk 50 ft with 2 Turns(QC): 4 Walk 150 ft (QC): 88 Walking 10ft/uneven surface-QC: 4 Gait Persons Needed: 1 Gait Assistive Device: FWW Wheelchair Training Does the Pt Use a Wheelchair?: Yes Distance: 20' Wheel 50 ft with 2 turns (QC): 88 Wheel 150 ft (QC): 88 Type of Wheelchair: Manual Stair Training 1 Step (curb) (QC): 88 4 Steps (QC): 88 12 Steps (QC): 88 Balance Picking up an Object (QC): 4 (CGA using a rod straightener.) ADL-Treatment Eating (QC): 6 Oral Hygiene (QC): 6 Shower/Bathe Self (QC): 6 Upper Body Dressing (QC): 5 Lower Body Dressing (QC): 5 On/Off Footwear (QC): 3 (Min A with R gripper sock donning/doffing. Pt able to complete L gripper sock.) Toileting Hygiene (QC): 4 Toilet Transfer (QC): 4 Assessment/Plan Assessment and Plan Assess & Plan/Chief Complaint Assessment: Cardiogenic shock Debility LUIS Liver shock AF PAF s/p RVR Liver shock s/p E coli severe sepsis UTI Hypoxia Volume overload HTN OOC Bradycardia Pacemaker Epistaxis resolved Anemia hgb 8.8 Plan: Monitor creat Monitor CHF Monitor O2 Completed abx 05/25/2022: Avelina Haddad for I/O's Appreciate Dr Lundberg 05/26/2022: Diuresis Monitor closely 05/27/2022: Ambulate Monitor closely 05/28/2022: Discontinue catheter tomorrow 05/29/2022: Monitor weight Monitor creatinine Haddad discontinued today 05/30/2022: Monitor creat and hgb 05/31/2022: Edema management (1) Cardiogenic shock Status: Resolved (2) Septic shock Status: Resolved (3) Splenic cyst Status: Acute (4) Hypercalcemia Status: Acute (5) ATN (acute tubular necrosis) Status: Acute (6) Gilbert syndrome Status: Chronic (7) Lactic acidosis Status: Resolved Resolution Date/Time: 05/19/22 @ 19:07 (8) E. coli UTI Status: Acute (9) Shock liver Status: Acute (10) Unconjugated hyperbilirubinemia Status: Acute (11) Acute on chronic HFrEF (heart failure with reduced ejection fraction) Status: Acute (12) NSTEMI (non-ST elevation myocardial infarction) Status: Acute (13) Paroxysmal atrial fibrillation with RVR (14) Vomiting in adult Status: Acute ANNEL ESTES DO May 31, 2022 06:27
[2022-05-31] MEDS: KCL 10 MEQ TAB (MICRO K) PO SCH (06:28)
[2022-05-31] MEDS: CATHETER FLUSH 10 ML SYR IVP SCH ×3 (06:28→21:25)
[2022-05-31] MEDS: VENlafaxine XR 75 MG (EFFEXOR XR) CAP PO SCH (06:29)
[2022-05-31 06:48] LABS: POTASSIUM 4.2 MMOL/L (3.6-5.0)
[2022-05-31 06:49] LABS: CALCIUM 9.7 MG/DL (8.5-10.1)
[2022-05-31 06:54] LABS: CREATININE SERUM 2.45 MG/DL (0.60-1.30)
[2022-05-31 07:32] VITALS: BP 128/60
[2022-05-31 07:49] VITALS: BP 128/60
[2022-05-31 07:54] VITALS: BP 170/79
[2022-05-31] MEDS: LETROZOLE 2.5 MG (FEMARA) TAB PO SCH (08:09)
[2022-05-31] MEDS: amLODIPine 10 MG (NORVASC) TAB PO SCH (08:10)
[2022-05-31] MEDS: CYANOCOBALAMIN 1,000 MCG (VITAMIN B-12) TABLET PO SCH (08:10)
[2022-05-31] MEDS: APIXABAN 5 MG (ELIQUIS) TABLET PO SCH ×2 (08:10→21:25)
[2022-05-31] MEDS: FUROSEMIDE 40 MG (LASIX) TAB PO SCH (08:10)
[2022-05-31] MEDS: LACTOBACILLUS ACIDOPHILUS (PROBIOTIC) CAPSULE PO SCH ×3 (08:10→17:31)
[2022-05-31] MEDS: doxAzosin 4 MG (CARDURA) TAB PO SCH ×2 (08:10→21:25)
[2022-05-31] MEDS: EMPAGLIFLOZIN 10 MG TABLET (JARDIANCE) PO SCH (08:10)
[2022-05-31] MEDS: ACETAMINOPHEN 325 MG TABLET PO PRN ×2 (08:15→13:56)
[2022-05-31] MEDS: SALINE NASAL SPRAY (OCEAN) 45 ML BTL SCH ×4 (08:27→21:28)
[2022-05-31] MEDS: DOCUSATE SODIUM 100 MG (COLACE) CAP PO SCH ×2 (08:28→21:33)
[2022-05-31] MEDS: polyethylene glycoL POWDER 17 GM (MIRALAX) PACK PO SCH ×2 (08:28→21:33)
[2022-05-31] MEDS: SENNOSIDES 8.6 MG (SENOKOT) TAB PO SCH ×2 (08:28→21:33)
[2022-05-31 08:32] VITALS: BP 170/79
--- NOTE | 2022-05-31 08:51 | Progress Note - Cardiology ---
Cardiology SOAP Progress Note Subjective: Sitting up in recliner at the bedside Reports fatigue is somewhat better Continues to report LE swelling Objective: I&O/Vital Signs 06/01/22 07:22 Temp 36.5 Pulse 63 Resp 18 B/P (MAP) 138/63 (88) Pulse Ox 96 O2 Delivery Room Air 06/01/22 00:00 Intake Total 1040 ml Output Total 1200 ml Balance -160 ml Weight (Pounds): 230 Weight (Ounces): 0.0 Weight (Calculated Kilograms): 104.669288 Constitutional: AAO x 3, well-developed, well-nourished Respiratory: No accessory muscle use; other (fair, bilateral air entry, diminis hed at the bases) Cardiovascular: regular rate-rhythm, S1 and S2, systolic murmur (soft YASSINE at card base) Gastrointestional: No tender; soft; No guarding, No rebound; audible bowel sounds Extremities: other (chronic edema of the L arm; mod bilat LE swelling); No clubbing, No cyanosis Neurologic/Psychiatric: oriented x 3, other (moves all limbs equally) Skin: No rash on exposed areas, No ulcerations on exposed areas Results/Procedures: Labs Laboratory Tests 06/01/22 06:35: White Blood Count 6.3, Red Blood Count 3.00L, Hemoglobin 8.5L, Hematocrit 27L, Mean Corpuscular Volume 89, Mean Corpuscular Hemoglobin 28, Mean Corpuscular Hemoglobin Concent 32, Red Cell Distribution Width 17.6H, Platelet Count 149, Mean Platelet Volume 11.3, Percent Immature Platelet Fraction 4.2, Sodium Level 142, Potassium Level 4.1, Chloride Level 107, Carbon Dioxide Level 24, Anion Gap 11, Blood Urea Nitrogen 45H, Creatinine 2.51H, Estimat Glomerular Filtration Rate 20, BUN/Creatinine Ratio 18, Glucose Level 74, Calcium Level 9.8 Microbiology 05/28/22 C. difficile GDH Antigen & Toxins - Final, Complete A/P: Assessment: Shock: septic and/or cardiogenic - mild troponin elevation due to type 2 MA due to hypotension - shock now resolved; currently hypertensive Hepatitis and [facility]und[facility] of undetermined etiology [facility] Coagulopathy - due to hepatic failure and due to apixaban - improved PAF - Apixaban held during marked hepatic impairment, now resumed Chronic HFrEF due to NICM (primarily managed by her plastic technician Dr Woodward in [place], [place]) - Echocardiogram of 04-08-[address] Felton showed LVEF 10-15% with severe diffuse hypokinesis. LA and RA dilated. Mod to severe AoR. Mod MR. Mod to severe TR. PASP 50-55 mmHg - She reports she had a sleep study done that was "inconclusive" - she does not use CPAP or supplemental oxygen - managed by Dr. Kirk - AICD - implanted in September 2021 at [facility] (single chamber device) - followed by Dr. Woodward - Echo on 05-17-22: LVEF 20-25%, global hypokinesis of LV, mild to mod MR, PASP 35-40 mmHg Acute renal failure - ATN due to hypotension vs hepatorenal syndrome - Cr improved but now appears to have stagnated HLD - statin tx H/o DVT R leg - OAC with Eliquis H/O Breast Cancer - has had a mastectomy Gen weakness - d/t prolonged critical illness Chronic lymphedema of the SUSAN Plan: * Complex management due to multiple comorbidities * BP fairly well controlled * Continuing to hold off on increasing her beta-dai because of continued intermittently bradycardic overnight * Not suitable for NIRALI-inhib/ARB due to renal failure (which still persists) * Renal function essentially stable with addition of diuretics * Monitor lab closely * Advise compression stockings on in the am and off at hs * Anemia - management per medical services - check CBC JOSIE WINKLER May 31, 2022 08:51
--- NOTE | 2022-05-31 11:36 | Progress Note - Cardiology ---
Cardiology SOAP Progress Note Subjective: Notes more swelling of the legs and the left arm than is usual for her (since admission) No cp or palp or syncope Gen weakness No focal weakness No n/v/d No cp Objective: I&O/Vital Signs 05/31/22 05/31/22 05/31/22 05/31/22 07:49 07:54 08:00 08:32 Temp 36.4 36.8 36.8 Pulse 64 72 72 Resp 18 18 18 B/P (MAP) 128/60 (82) 170/79 (109) 170/79 (109) Pulse Ox 99 94 94 O2 Delivery Room Air Room Air Room Air Room Air 05/31/22 00:00 Intake Total 910 ml Output Total 550 ml Balance 360 ml Weight (Pounds): 230 Weight (Ounces): 0.0 Weight (Calculated Kilograms): 104.354979 Constitutional: AAO x 3, well-developed, well-nourished Respiratory: No accessory muscle use; other (fair, bilateral air entry, diminished at the bases) Cardiovascular: regular rate-rhythm, S1 and S2, systolic murmur (soft YASSINE at card base) Gastrointestional: No tender; soft; No guarding, No rebound; audible bowel sounds Extremities: other (chronic edema of the L arm; mod bilat LE swelling); No clubbing, No cyanosis Neurologic/Psychiatric: oriented x 3, other (moves all limbs equally) Skin: No rash on exposed areas, No ulcerations on exposed areas Results/Procedures: Labs Laboratory Tests 05/31/22 06:25: Sodium Level 141, Potassium Level 4.2, Chloride Level 107, Carbon Dioxide Level 23, Anion Gap 11, Blood Urea Nitrogen 43H, Creatinine 2.45H, Estimat Glomerular Filtration Rate 21, BUN/Creatinine Ratio 18, Glucose Level 81, Calcium Level 9.7 Microbiology 05/28/22 C. difficile GDH Antigen & Toxins - Final, Complete Laboratory Tests 05/30/22 06:05 05/31/22 06:25 A/P: Assessment: Shock: septic and/or cardiogenic - mild troponin elevation due to type 2 ID due to hypotension - shock now resolved; currently hypertensive Hepatitis and jaundice of undetermined etiology - managed by [place] [facility] Coagulopathy - due to hepatic failure and due to apixaban - improved PAF - Apixaban held during marked hepatic impairment, now resumed Chronic HFrEF due to NICM (primarily managed by her personal health coach Dr Woodward in [place], [place]) - Echocardiogram of 04-08-[address] Felton showed LVEF 10-15% with severe diffuse hypokinesis. LA and RA dilated. Mod to severe AoR. Mod MR. Mod to severe TR. PASP 50-55 mmHg - She reports she had a sleep study done that was "inconclusive" - she does not use CPAP or supplemental oxygen - managed by Dr. Kirk - AICD - implanted in September 2021 at [facility] (single chamber device) - followed by Dr. Woodward - Echo on 05-17-22: LVEF 20-25%, global hypokinesis of LV, mild to mod MR, PASP 35-40 mmHg Acute renal failure - ATN due to hypotension vs hepatorenal syndrome - Cr improved but now appears to have stagnated HLD - statin tx H/o DVT R leg - OAC with Eliquis H/O Breast Cancer - has had a mastectomy Gen weakness - d/t prolonged critical illness Chronic lymphedema of the SUSAN Plan: * Complex management due to multiple comorbidities * BP intermittently elevated. Meds recently increased. Continue to observe. Consider increasing doxazosin of bp remains problematic * Continuing to hold off on increasing her beta-dai because of continued intermittently bradycardic overnight * Not suitable for NIRALI-inhib/ARB due to renal failure (which still persists) * Renal function essentially stable with addition of diuretics * Monitor lab closely * Advise compression stockings on in the am and off at hs * Anemia - management per medical services - check CBC CHAU POPE MD FACP FAC CCDS May 31, 2022 11:36
--- NOTE | 2022-05-31 11:57 | Occupational Ther Daily Note ---
OT Current Status-Daily Note Subjective Pt alert, sitting in recliner. Pt agrees to therapy. No c/o pain though does c/o R LE feeling very heavy with the amount of edema. Physician in room and aware. Mental Status/Objective Patient Orientation: Person, Place, Time, Situation Attachments: IV ADL-Treatment Pt declines shower. Due to edema assist given to complete NIRALI wraps on B lower legs/feet and don/doff socks. Therapy Code Descriptions/Definitions Functional [place] Measure: 0=Not Assessed/NA 4=Minimal Assistance 1=Total Assistance 5=Supervision or Setup 2=Maximal Assistance 6=Modified [place] 3=Moderate Assistance 7=Complete IndependenceSCALE: Activities may be completed with or without assistive devices. 6-Hrzgdrshdn-eisgxyb completes the activity by him/herself with no assistance from a helper. 5-Set-up or Clean-up Assistance-helper sets up or cleans up; patient completes activity. [place] assists only prior to or following the activity. 4-Supervision or Touching Assistance-helper provides verbal cues and/or touching/steadying and/or contact guard assistance as patient completes activity. Assistance may be provided throughout the activity or intermittently. 3-Partial/Moderate Assistance-helper does LESS THAN HALF the effort. [place] lifts, holds or supports trunk or limbs, but provides less than half the effort. 2-Substantial/Maximal Assistance-helper does MORE THAN HALF the effort. [place] lifts or holds trunk or limbs and provides more than half the effort. 8-Xgdvgjukm-qmysyr does ALL the effort. Patient does none of the effort to complete the activity. Or, the assistance of 2 or more helpers is required for the patient to complete the activity. If activity was not attempted, code reason: 7-Patient Refused. 9-Not Applicable-not attempted and the patient did not perform the activity before the current illness, exacerbation or injury. 10-Not Attempted due to Environmental Limitations-(lack of equipment, weather restraints, etc.). 88-Not Attempted due to Medical Conditions or Safety Concerns. Other Treatment Pt completes arm bike with 10 silver resistance with forward rotation(5 min)/backward(5 min) rotation to increase strength and activity tolerance. Pt required multiple recovery breaks throughout exercises. After session, pt sitting in recliner with feet elevated. Call light/phone in reach. All needs met in room. OT Short Term Goals Short Term Goals Time Frame: Jun 08, 2022 Shower/bathe self: 5 Upper body dressin Lower body dressin Putting on/taking off footwear: 5 OT [facility]ci Goals Principal Android Developer Goals Time Frame: Jun 17, 2022 Acute change in mental status: 0 Inattention: 0 Disorganized thinkin Altered level of consciousness: 0 Eating (QC): 6 Oral Hygiene (QC): 6 Toileting Hygiene (QC): 6 Shower/Bathe Self (QC): 6 Upper Body Dressing (QC): 6 Lower Body Dressing (QC): 6 On/Off Footwear (QC): 6 Additional Goals: 1-Demonstrate ADL Tasks, 2-Verbalize Understanding, 3- ImproveStrength/Jamir 1=Demonstrate adherence to instructed precautions during ADL tasks. 2=Patient will verbalize/demonstrate understanding of assistive devices/modifications for ADL. 3=Patient will improve strength/tolerance for activity to enable patient to perform ADL's. OT Education/Plan Problem List/Assessment Assessment: Decreased Activ Tolerance, Decreased UE Strength, Impaired Self- Care Skills Discharge Recommendations Plan/Recommendations: Continue POC Treatment Plan/Plan of Care Patient would benefit from OT for education, treatment and training to promote independence in ADL's, mobility, safety and/or upper extremity function for ADL's. Plan of Care: ADL Retraining, Functional Mobility, Group Exercise/Act as Ind, UE Funct Exercise/Act, OTHER (edema management UEs) Treatment Duration: Jun 17, 2022 Frequency: At least 5 of 7 days/Wk (IRF) Estimated Hrs Per Day: 1.5 hours per day Agreement: Yes Rehab Potential: Fair Time Start Time: 11:00 Stop Time: 12:00 DATE: May 31, 2022 Total Time Billed (hr/min): 60 Billed Treatment Time 1 visit-ADL 2 (30 min) EX 1 (15 min) FA 1 (15 min) DEVORAH ELKINS May 31, 2022 11:57
--- NOTE | 2022-05-31 12:03 | Physical Therapy Daily Note ---
PT Daily Note-Current Subjective Pt reclined in chair upon arrival. Pt agrees to PT. Pt reports feeling like swelling in B LE is worse, keyshawn. R LE but pt states Nursing is aware. Pain Location: Right, Left Location Body Site: Thigh Pain Description: Tightness Section J - Health Conditions 1. Rarely or not at all 2. Occasionally 3. Frequently 4. Almost constantly 8. Unable to answer Pain Effect on Sleep: 1 Pain Interference with Therapy: 1 Pain Interference w/Day-to-Day: 1 Mental Status Patient Orientation: Person, Place, Situation Transfers SCALE: Activities may be completed with or without assistive devices. 4-Gdllwftiiu-xvndiqo completes the activity by him/herself with no assistance from a helper. 5-Set-up or Clean-up Assistance-helper sets up or cleans up; patient completes activity. Harold assists only prior to or following the activity. 4-Supervision or Touching Assistance-helper provides verbal cues and/or touching/steadying and/or contact guard assistance as patient completes activity. Assistance may be provided throughout the activity or intermittently. 3-Partial/Moderate Assistance-helper does LESS THAN HALF the effort. Harold lifts, holds or supports trunk or limbs, but provides less than half the effort. 2-Substantial/Maximal Assistance-helper does MORE THAN HALF the effort. Harold lifts or holds trunk or limbs and provides more than half the effort. 2-Hjlroqkxm-nzkjuk does ALL the effort. Patient does none of the effort to complete the activity. Or, the assistance of 2 or more helpers is required for the patient to complete the activity. If activity was not attempted, code reason: 7-Patient Refused. 9-Not Applicable-not attempted and the patient did not perform the activity before the current illness, exacerbation or injury. 10-Not Attempted due to Environmental Limitations-(lack of equipment, weather restraints, etc.). 88-Not Attempted due to Medical Conditions or Safety Concerns. Sit to Stand (QC): 4 Toilet Transfer (QC): 4 Weight Bearing Full Weight Bearing Full Weight Bearing Gait Training Does the Patient Walk?: Yes Distance: 65', 55' Walk 10 feet (QC): 4 Walk 50 ft with 2 Turns(QC): 4 Gait Persons Needed: 1 Gait Assistive Device: FWW Exercises Supine Ex: Ankle pumps, Quad Set, Glut sets, Hip abd/add Supine Reps: 15 Seated Therapy Exercises: Long arc quads, Hip flexion Seated Reps: 15 Treatments Pt completes both Supine & Seated EX at recliner before TF to standing and amb. to BR. After toileting, Pt amb. in hallway before returning to room to rest in recliner. All needs met, call light in hand. Assessment Current Status: Fair Progress Pt demonstrates difficulty lifting B LE due to swelling. PT Short Term Goals Short Term Goals Time Frame: May 31, 2022 Sit to lyin (Gladys) Lying to sitting on side of be: 3 (Gladys) Sit to stand: 4 (SBA) Chair/vmt-rg-bjfqr transfer: 4 (SBA) Walk 10 feet: 4 (SBA) Walk 50 feet with two turns: 4 (SBA) PT Residential Goals Noc Analyst Goals PT Noc Analyst Goals Time Frame: Jun 07, 2022 Roll Left & Right (QC): 6 Sit to Lying (QC): 4 (SBA) Lying-Sitting on Side/Bed(QC): 4 (SBA) Sit to Stand (QC): 6 Chair/Qvo-ft-Ivzdb Xfer(QC): 6 Toilet Transfer (QC): 6 Car Transfer (QC): 4 (SBA) Does the Patient Walk: Yes Walk 10 feet (QC): 6 Walk 50ft with 2 Turns (QC): 6 Walk 150 ft (QC): 88 Walking 10ft on Uneven Surface: 6 1 Step (curb) (QC): 88 4 Steps (QC): 88 12 Steps (QC): 88 Picking up an Object (QC): 6 (using threat analyst) Wheel 50 feet with 2 turns (QC: 9 Wheel 150 feet: 9 PT Plan Problem List Problem List: Activity Tolerance, Functional Strength Treatment/Plan Treatment Plan: Continue Plan of Care Treatment Plan: Bed Mobility, Education, Functional Activity Jamir, Functional Strength, Group Therapy, Gait, Safety, Therapeutic Exercise, Transfers Treatment Duration: Jun 07, 2022 Frequency: At least 5 of 7 days/Wk (IRF) Estimated Hrs Per Day: 1.5 hours per day Patient and/or Family Agrees t: Yes Time Time In: 1000 Time Out: 1100 DATE: May 31, 2022 Total Billed Treatment Time: 60 Total Billed Treatment 1, EX (20m), FA x2 (25m) & GT (15m) NEENA PENN HEAD BAKER May 31, 2022 12:03
[2022-05-31 13:51] VITALS: BP 133/62
--- NOTE | 2022-05-31 14:35 | Occupational Ther Daily Note ---
OT Current Status-Daily Note Subjective Pt alert, sitting in recliner. Pt agrees to therapy. Pt states that she is very tired from am therapies. Mental Status/Objective Patient Orientation: Person, Place, Time, Situation Attachments: IV ADL-Treatment Therapy Code Descriptions/Definitions Functional [place] Measure: 0=Not Assessed/NA 4=Minimal Assistance 1=Total Assistance 5=Supervision or Setup 2=Maximal Assistance 6=Modified [place] 3=Moderate Assistance 7=Complete IndependenceSCALE: Activities may be completed with or without assistive devices. 2-Hypeehlxge-ejtrlzp completes the activity by him/herself with no assistance from a helper. 5-Set-up or Clean-up Assistance-helper sets up or cleans up; patient completes activity. [place] assists only prior to or following the activity. 4-Supervision or Touching Assistance-helper provides verbal cues and/or touching/steadying and/or contact guard assistance as patient completes activity. Assistance may be provided throughout the activity or intermittently. 3-Partial/Moderate Assistance-helper does LESS THAN HALF the effort. [place] lifts, holds or supports trunk or limbs, but provides less than half the effort. 2-Substantial/Maximal Assistance-helper does MORE THAN HALF the effort. [place] lifts or holds trunk or limbs and provides more than half the effort. 6-Itubcljqc-ofhfvf does ALL the effort. Patient does none of the effort to complete the activity. Or, the assistance of 2 or more helpers is required for the patient to complete the activity. If activity was not attempted, code reason: 7-Patient Refused. 9-Not Applicable-not attempted and the patient did not perform the activity before the current illness, exacerbation or injury. 10-Not Attempted due to Environmental Limitations-(lack of equipment, weather restraints, etc.). 88-Not Attempted due to Medical Conditions or Safety Concerns. Other Treatment Energy conservation techniques and home environment problem solving. Pt states that she commonly uses '[employer]' for food, does not cook if she can help it. Pt is going to have services that will assist with wrapping lower legs for edema if needed. Pt states that she has walk-in shower with bench that she can use. Discussed how pt is able to move around home with FWW. Pt continues to decline toilet tongs to extend reach to effectively cleanse. Discussed other options though pt would does not want to discuss them at this time. Pt then requested to use toilet. Pt ambulated to toilet and completed toilet transfer by self and manipulated clothing over hips by self. After session, pt sitting on toilet with call light in reach. All needs met. OT Short Term Goals Short Term Goals Time Frame: Jun 08, 2022 Shower/bathe self: 5 Upper body dressin Lower body dressin Putting on/taking off footwear: 5 OT Belt Picker Goals Correction Goals Time Frame: Jun 17, 2022 Acute change in mental status: 0 Inattention: 0 Disorganized thinkin Altered level of consciousness: 0 Eating (QC): 6 Oral Hygiene (QC): 6 Toileting Hygiene (QC): 6 Shower/Bathe Self (QC): 6 Upper Body Dressing (QC): 6 Lower Body Dressing (QC): 6 On/Off Footwear (QC): 6 Additional Goals: 1-Demonstrate ADL Tasks, 2-Verbalize Understanding, 3- ImproveStrength/Jamir 1=Demonstrate adherence to instructed precautions during ADL tasks. 2=Patient will verbalize/demonstrate understanding of assistive devices/modifications for ADL. 3=Patient will improve strength/tolerance for activity to enable patient to perform ADL's. OT Education/Plan Problem List/Assessment Assessment: Decreased Activ Tolerance, Impaired Self-Care Skills Discharge Recommendations Plan/Recommendations: Continue POC Treatment Plan/Plan of Care Patient would benefit from OT for education, treatment and training to promote independence in ADL's, mobility, safety and/or upper extremity function for ADL's. Plan of Care: ADL Retraining, Functional Mobility, Group Exercise/Act as Ind, UE Funct Exercise/Act, OTHER (edema management UEs) Treatment Duration: Jun 17, 2022 Frequency: At least 5 of 7 days/Wk (IRF) Estimated Hrs Per Day: 1.5 hours per day Agreement: Yes Rehab Potential: Fair Time Start Time: 13:00 Stop Time: 13:30 DATE: May 31, 2022 Total Time Billed (hr/min): 30 Billed Treatment Time 1 visit-FA 1 (20 min) ADL 1 (10 min) DEVORAH ELKINS May 31, 2022 14:35
--- NOTE | 2022-05-31 15:41 | Physical Therapy Daily Note ---
PT Daily Note-Current Subjective Pt is in BR upon arrival. Pt agrees to PT. Pain Location: No Pain Reported Section J - Health Conditions 1. Rarely or not at all 2. Occasionally 3. Frequently 4. Almost constantly 8. Unable to answer Pain Effect on Sleep: 1 Pain Interference with Therapy: 1 Pain Interference w/Day-to-Day: 1 Mental Status Patient Orientation: Person, Place, Time, Situation Transfers SCALE: Activities may be completed with or without assistive devices. 4-Jixdphhaaq-javedha completes the activity by him/herself with no assistance from a helper. 5-Set-up or Clean-up Assistance-helper sets up or cleans up; patient completes activity. [place] assists only prior to or following the activity. 4-Supervision or Touching Assistance-helper provides verbal cues and/or touching/steadying and/or contact guard assistance as patient completes activity. Assistance may be provided throughout the activity or intermittently. 3-Partial/Moderate Assistance-helper does LESS THAN HALF the effort. [place] lifts, holds or supports trunk or limbs, but provides less than half the effort. 2-Substantial/Maximal Assistance-helper does MORE THAN HALF the effort. [place] lifts or holds trunk or limbs and provides more than half the effort. 6-Ndnmfhmsn-djkpnh does ALL the effort. Patient does none of the effort to complete the activity. Or, the assistance of 2 or more helpers is required for the patient to complete the activity. If activity was not attempted, code reason: 7-Patient Refused. 9-Not Applicable-not attempted and the patient did not perform the activity before the current illness, exacerbation or injury. 10-Not Attempted due to Environmental Limitations-(lack of equipment, weather restraints, etc.). 88-Not Attempted due to Medical Conditions or Safety Concerns. Sit to Stand (QC): 4 Toilet Transfer (QC): 4 Weight Bearing Full Weight Bearing Full Weight Bearing Gait Training Does the Patient Walk?: Yes Distance: 15' Walk 10 feet (QC): 4 Gait Persons Needed: 1 Gait Assistive Device: FWW Treatments Pt uses BR to begin tx. After toileting, pt amb. back to recliner reporting very fatigued. Pt reports feeling as though pt might pass out so vitals are taken. Pt rests in recliner w/Nurse present. All needs met, call light next to pt. Assessment Current Status: Fair Progress Pt reports feeling fatigued then ill so vitals are taken. BP is 133/62, HR is 52 & O2 is 93%. PREPARED FOODS SERVICE TEAM MEMBER does not continue w/anymore tx. PT Short Term Goals Short Term Goals Time Frame: May 31, 2022 Sit to lyin (Gladys) Lying to sitting on side of be: 3 (Gladys) Sit to stand: 4 (SBA) Chair/ukt-xl-amhav transfer: 4 (SBA) Walk 10 feet: 4 (SBA) Walk 50 feet with two turns: 4 (SBA) PT Long-Term Goals Account Solutions Analyst Goals PT Long-Term Goals Time Frame: Jun 07, 2022 Roll Left & Right (QC): 6 Sit to Lying (QC): 4 (SBA) Lying-Sitting on Side/Bed(QC): 4 (SBA) Sit to Stand (QC): 6 Chair/Tfk-ni-Yhsrl Xfer(QC): 6 Toilet Transfer (QC): 6 Car Transfer (QC): 4 (SBA) Does the Patient Walk: Yes Walk 10 feet (QC): 6 Walk 50ft with 2 Turns (QC): 6 Walk 150 ft (QC): 88 Walking 10ft on Uneven Surface: 6 1 Step (curb) (QC): 88 4 Steps (QC): 88 12 Steps (QC): 88 Picking up an Object (QC): 6 (using efficiency miner) Wheel 50 feet with 2 turns (QC: 9 Wheel 150 feet: 9 PT Plan Problem List Problem List: Activity Tolerance Treatment/Plan Treatment Plan: Continue Plan of Care Treatment Plan: Bed Mobility, Education, Functional Activity Jamir, Functional Strength, Group Therapy, Gait, Safety, Therapeutic Exercise, Transfers Treatment Duration: Jun 07, 2022 Frequency: At least 5 of 7 days/Wk (IRF) Estimated Hrs Per Day: 1.5 hours per day Patient and/or Family Agrees t: Yes Safety Risks/Education Patient Education: Safety Issues Teaching Recipient: Patient Teaching Methods: Discussion Response to Teaching: Verbalize Understanding Time Time In: 1330 Time Out: 1400 DATE: May 31, 2022 Total Billed Treatment Time: 30 Total Billed Treatment 1, FA x2 (30m) FILINEENA PREPARED FOODS SERVICE TEAM MEMBER May 31, 2022 15:41
[2022-05-31 19:30] VITALS: BP 123/70
[2022-05-31] MEDS: MECLIZINE 25 MG (ANTIVERT) TAB PO SCH (21:25)
--- NOTE | 2022-06-01 04:54 | PM&R Progress Note ---
Subjective HPI/CC On Admission Date Seen by Provider: Jun 01, 2022 Time Seen by Provider: 08:30 Subjective/Events-last exam 06/01/2022: Improved every day Focused on the edema but that will take time Had a near syncopal event today when pulse was 40 so Cardiology adjusted meds 05/31/2022: Doing well Less lethargy Creatinine stable BP stable No concerns except edema of the legs 05/30/2022: Doing well Improved overall No pain reported Edema persists Labs reviewed 05/29/2022: Patient doing really well Appears improved every day Still gaining water weight Labs reviewed Mild epistaxis every day 05/28/2022: Patient doing well Moving around better Discontinue catheter tomorrow she is reluctant that needs to be done Eating and drinking well Bowels are moving No more epistaxis 05/27/2022: Making some progress Less weak Haddad cath still in place Purewick did not work for her in the past Incontinence is disturbing for her Participation is improved 05/26/2022: Improved status Very debilitated Labs improved Lasix improved edema Remains with Haddad Incontinence normally 05/25/2022: Slow moving today Labs reviewed Appreciate Dr Lundberg direction on bradycardia and HTN Labs reviewed Haddad cath in place Lasix given Third-spacing of fluid noted Nosebleeds so will initiate saline spray Review of Systems General: Fatigue, Malaise Cardiovascular: Edema Musculoskeletal: leg pain Objective Exam Vital Signs Vital Signs Date Time Temp Pulse Resp B/P (MAP) Pulse Ox O2 Delivery O2 Flow Rate FiO2 06/01/22 21:30 96 Room Air 06/01/22 19:45 36.3 62 22 160/74 (102) Capillary Refill : General Appearance: No Apparent Distress, WD/WN, Chronically ill, Obese HEENT: PERRL/EOMI, Normal ENT Inspection, Pharynx Normal Neck: Full Range of Motion, Normal Inspection, Non Tender, Supple, Carotid Bruit Respiratory: Chest Non Tender, Lungs Clear, No Accessory Muscle Use, No Respiratory Distress, Decreased Breath Sounds Cardiovascular: Regular Rate, Rhythm, No Gallop, No JVD, No Murmur, Normal Peripheral Pulses Gastrointestinal: Normal Bowel Sounds, No Organomegaly, No Pulsatile Mass, Non Tender, Soft Back: Normal Inspection, No CVA Tenderness, No Vertebral Tenderness Extremity: Normal Capillary Refill, Normal Inspection, Normal Range of Motion, Non Tender, No Calf Tenderness, Pedal Edema Neurologic/Psychiatric: Alert, Oriented x3, Normal Mood/Affect, log chipper operator II-XII Norm as Tested, Abnormal Gait, Motor Weakness (generalized) Skin: Normal Color, Warm/Dry Lymphatic: No Adenopathy Results/Procedures Lab Laboratory Tests 06/01/22 06:35 Patient resulted labs reviewed. FIM Transfers Therapy Code Descriptions/Definitions Functional [place] Measure: 0=Not Assessed/NA 4=Minimal Assistance 1=Total Assistance 5=Supervision or Setup 2=Maximal Assistance 6=Modified [place] 3=Moderate Assistance 7=Complete IndependenceSCALE: Activities may be completed with or without assistive devices. 2-Ucxpzbhyvd-zefthjh completes the activity by him/herself with no assistance from a helper. 5-Set-up or Clean-up Assistance-helper sets up or cleans up; patient completes activity. [place] assists only prior to or following the activity. 4-Supervision or Touching Assistance-helper provides verbal cues and/or touching/steadying and/or contact guard assistance as patient completes activity. Assistance may be provided throughout the activity or intermittently. 3-Partial/Moderate Assistance-helper does LESS THAN HALF the effort. [place] lifts, holds or supports trunk or limbs, but provides less than half the effort. 2-Substantial/Maximal Assistance-helper does MORE THAN HALF the effort. [place] lifts or holds trunk or limbs and provides more than half the effort. 9-Jkoobexqd-ndwile does ALL the effort. Patient does none of the effort to complete the activity. Or, the assistance of 2 or more helpers is required for the patient to complete the activity. If activity was not attempted, code reason: 7-Patient Refused. 9-Not Applicable-not attempted and the patient did not perform the activity before the current illness, exacerbation or injury. 10-Not Attempted due to Environmental Limitations-(lack of equipment, weather restraints, etc.). 88-Not Attempted due to Medical Conditions or Safety Concerns. Roll Left to Right (QC): 4 Sit to Lying (QC): 4 Sit to Stand (QC): 4 Chair/Ajd-sw-Axmiy Xfer(QC): 4 Car Transfer (QC): 3 Gait Training Does the Patient Walk?: Yes Distance: 15' Walk 10 feet (QC): 4 Walk 50 ft with 2 Turns(QC): 4 Walk 150 ft (QC): 88 Walking 10ft/uneven surface-QC: 4 Gait Persons Needed: 1 Gait Assistive Device: FWW Wheelchair Training Does the Pt Use a Wheelchair?: Yes Distance: 20' Wheel 50 ft with 2 turns (QC): 88 Wheel 150 ft (QC): 88 Type of Wheelchair: Manual Stair Training 1 Step (curb) (QC): 88 4 Steps (QC): 88 12 Steps (QC): 88 Balance Picking up an Object (QC): 4 (CGA using a credit card control clerk.) ADL-Treatment Eating (QC): 6 Oral Hygiene (QC): 6 Shower/Bathe Self (QC): 6 Upper Body Dressing (QC): 5 Lower Body Dressing (QC): 5 On/Off Footwear (QC): 3 (Min A with R gripper sock donning/doffing. Pt able to complete L gripper sock.) Toileting Hygiene (QC): 4 Toilet Transfer (QC): 4 Assessment/Plan Assessment and Plan Assess & Plan/Chief Complaint Assessment: Cardiogenic shock Debility LUIS Liver shock AF PAF s/p RVR Liver shock s/p E coli severe sepsis UTI Hypoxia Volume overload HTN OOC Bradycardia Pacemaker Epistaxis resolved Anemia hgb 8.8 Near syncope pulse 40 on 06/01/22 Plan: Monitor creat Monitor CHF Monitor O2 Completed abx 05/25/2022: Avelina Haddad for I/O's Appreciate Dr Lundberg 05/26/2022: Diuresis Monitor closely 05/27/2022: Ambulate Monitor closely 05/28/2022: Discontinue catheter tomorrow 05/29/2022: Monitor weight Monitor creatinine Catie discontinued today 05/30/2022: Monitor creat and hgb 05/31/2022: Edema management 06/01/2022: Monitor closely (1) Cardiogenic shock Status: Resolved (2) Septic shock Status: Resolved (3) Splenic cyst Status: Acute (4) Hypercalcemia Status: Acute (5) ATN (acute tubular necrosis) Status: Acute (6) Gilbert syndrome Status: Chronic (7) Lactic acidosis Status: Resolved Resolution Date/Time: 05/19/22 @ 19:07 (8) E. coli UTI Status: Acute (9) Shock liver Status: Acute (10) Unconjugated hyperbilirubinemia Status: Acute (11) Acute on chronic HFrEF (heart failure with reduced ejection fraction) Status: Acute (12) NSTEMI (non-ST elevation myocardial infarction) Status: Acute (13) Paroxysmal atrial fibrillation with RVR (14) Vomiting in adult Status: Acute ANNEL ESTES DO Jun 01, 2022 04:54
[2022-06-01] MEDS: KCL 10 MEQ TAB (MICRO K) PO SCH (06:40)
[2022-06-01] MEDS: VENlafaxine XR 75 MG (EFFEXOR XR) CAP PO SCH (06:40)
[2022-06-01] MEDS: CATHETER FLUSH 10 ML SYR IVP SCH ×3 (06:41→21:36)
[2022-06-01 06:53] LABS: HEMOGLOBIN 8.5 g/dL (11.5-16.0); MEAN PLATELET VOLUME 11.3 fL (9.0-12.2); WHITE BLOOD COUNT 6.3 10^3/uL (4.3-11.0)
[2022-06-01 07:02] LABS: POTASSIUM 4.1 MMOL/L (3.6-5.0)
[2022-06-01 07:03] LABS: CALCIUM 9.8 MG/DL (8.5-10.1)
[2022-06-01 07:08] LABS: CREATININE SERUM 2.51 MG/DL (0.60-1.30)
[2022-06-01 07:22] VITALS: BP 138/63
[2022-06-01] MEDS: EMPAGLIFLOZIN 10 MG TABLET (JARDIANCE) PO SCH (08:28)
[2022-06-01] MEDS: LACTOBACILLUS ACIDOPHILUS (PROBIOTIC) CAPSULE PO SCH ×3 (08:28→17:52)
[2022-06-01] MEDS: FUROSEMIDE 40 MG (LASIX) TAB PO SCH (08:28)
[2022-06-01] MEDS: CYANOCOBALAMIN 1,000 MCG (VITAMIN B-12) TABLET PO SCH (08:28)
[2022-06-01] MEDS: LETROZOLE 2.5 MG (FEMARA) TAB PO SCH (08:28)
[2022-06-01] MEDS: APIXABAN 5 MG (ELIQUIS) TABLET PO SCH ×2 (08:28→21:35)
[2022-06-01] MEDS: SALINE NASAL SPRAY (OCEAN) 45 ML BTL SCH ×4 (08:36→21:38)
[2022-06-01] MEDS: DOCUSATE SODIUM 100 MG (COLACE) CAP PO SCH ×2 (08:37→21:38)
[2022-06-01] MEDS: polyethylene glycoL POWDER 17 GM (MIRALAX) PACK PO SCH ×2 (08:37→21:38)
[2022-06-01] MEDS: SENNOSIDES 8.6 MG (SENOKOT) TAB PO SCH ×2 (08:37→21:39)
[2022-06-01] MEDS: doxAzosin 4 MG (CARDURA) TAB PO SCH ×2 (09:09→21:35)
[2022-06-01] MEDS: amLODIPine 10 MG (NORVASC) TAB PO SCH (09:09)
--- NOTE | 2022-06-01 09:10 | Progress Note - Cardiology ---
Cardiology SOAP Progress Note Objective: I&O/Vital Signs 06/01/22 06/01/22 07:22 09:00 Temp 36.5 Pulse 63 Resp 18 B/P (MAP) 138/63 (88) Pulse Ox 96 O2 Delivery Room Air Room Air 06/01/22 00:00 Intake Total 1040 ml Output Total 1200 ml Balance -160 ml Weight (Pounds): 230 Weight (Ounces): 0.0 Weight (Calculated Kilograms): [id number] Constitutional: AAO x 3, well-developed, well-nourished Respiratory: No accessory muscle use; other (fair, bilateral air entry, diminished at the bases) Cardiovascular: regular rate-rhythm, S1 and S2, systolic murmur (soft YASSINE at card base) Gastrointestional: No tender; soft; No guarding, No rebound; audible bowel sounds Extremities: other (chronic edema of the L arm; mod bilat LE swelling); No clubbing, No cyanosis Neurologic/Psychiatric: oriented x 3, other (moves all limbs equally) Skin: No rash on exposed areas, No ulcerations on exposed areas Results/Procedures: Labs Laboratory Tests 06/01/22 06:35: White Blood Count 6.3, Red Blood Count 3.00L, Hemoglobin 8.5L, Hematocrit 27L, Mean Corpuscular Volume 89, Mean Corpuscular Hemoglobin 28, Mean Corpuscular Hemoglobin Concent 32, Red Cell Distribution Width 17.6H, Platelet Count 149, Mean Platelet Volume 11.3, Percent Immature Platelet Fraction 4.2, Sodium Level 142, Potassium Level 4.1, Chloride Level 107, Carbon Dioxide Level 24, Anion Gap 11, Blood Urea Nitrogen 45H, Creatinine 2.51H, Estimat Glomerular Filtration Rate 20, BUN/Creatinine Ratio 18, Glucose Level 74, Calcium Level 9.8 Microbiology 05/28/22 C. difficile GDH Antigen & Toxins - Final, Complete A/P: Assessment: Episode of hypotension and bradycardia yesterday (after using bathroom) - symptomatic (no syncope) - reduce BB Shock: septic and/or cardiogenic - mild troponin elevation due to type 2 NV due to hypotension - shock now resolved; currently hypertensive Hepatitis and jaundice of undetermined etiology - [place] [facility] [place] - due to hepatic failure and due to apixaban - improved PAF - Apixaban held during marked hepatic impairment, now resumed Chronic HFrEF due to NICM (primarily managed by her emissions engineer Dr Woodward in [place], [place]) - Echocardiogram of 04-08-[address] Felton showed LVEF 10-15% with severe diffuse hypokinesis. LA and RA dilated. Mod to severe AoR. Mod MR. Mod to severe TR. PASP 50-55 mmHg - She reports she had a sleep study done that was "inconclusive" - she does not use CPAP or supplemental oxygen - managed by Dr. Kirk - AICD - implanted in September 2021 at [facility] (single chamber device) - followed by Dr. Woodward - Echo on 05-17-22: LVEF 20-25%, global hypokinesis of LV, mild to mod MR, PASP 35-40 mmHg Acute renal failure - ATN due to hypotension vs hepatorenal syndrome - Cr improved but now appears to have stagnated HLD - statin tx H/o DVT R leg - OAC with Eliquis H/O Breast Cancer - has had a mastectomy Gen weakness - d/t prolonged critical illness Chronic lymphedema of the SUSAN Plan: * Complex management due to multiple comorbidities * BP intermittently elevated. Continue to observe. Consider increasing doxazosin of bp remains problematic * Reduce beta-dai because of continued intermittently bradycardia for which she is symptomatic * Not suitable for NIRALI-inhib/ARB due to renal failure (which still persists) * Renal function essentially stable with addition of diuretics * Monitor lab closely * Advise compression stockings on in the am and off at hs * Anemia - management per medical services - check fecal occult blood JOSIE WINKLER Jun 01, 2022 09:10
--- NOTE | 2022-06-01 10:02 | Physical Therapy Daily Note ---
PT Daily Note-Current Subjective Pt in BR upon arrival. Pt agrees to PT but reports feeling very fatigued & nervous due to low HR. Pain Location: No Pain Reported Section J - Health Conditions 1. Rarely or not at all 2. Occasionally 3. Frequently 4. Almost constantly 8. Unable to answer Pain Effect on Sleep: 1 Pain Interference with Therapy: 1 Pain Interference w/Day-to-Day: 1 Mental Status Patient Orientation: Person, Place, Time, Situation Transfers SCALE: Activities may be completed with or without assistive devices. 4-Clauasugbv-katdjcj completes the activity by him/herself with no assistance from a helper. 5-Set-up or Clean-up Assistance-helper sets up or cleans up; patient completes activity. [place] assists only prior to or following the activity. 4-Supervision or Touching Assistance-helper provides verbal cues and/or touching/steadying and/or contact guard assistance as patient completes activity. Assistance may be provided throughout the activity or intermittently. 3-Partial/Moderate Assistance-helper does LESS THAN HALF the effort. [place] lifts, holds or supports trunk or limbs, but provides less than half the effort. 2-Substantial/Maximal Assistance-helper does MORE THAN HALF the effort. [place] lifts or holds trunk or limbs and provides more than half the effort. 6-Eirhzgrfg-rvqfxm does ALL the effort. Patient does none of the effort to complete the activity. Or, the assistance of 2 or more helpers is required for the patient to complete the activity. If activity was not attempted, code reason: 7-Patient Refused. 9-Not Applicable-not attempted and the patient did not perform the activity before the current illness, exacerbation or injury. 10-Not Attempted due to Environmental Limitations-(lack of equipment, weather restraints, etc.). 88-Not Attempted due to Medical Conditions or Safety Concerns. Sit to Stand (QC): 5 Toilet Transfer (QC): 5 Weight Bearing Full Weight Bearing Full Weight Bearing Exercises Supine Ex: Ankle pumps, Quad Set, Glut sets, Hip abd/add Supine Reps: 15 Seated Therapy Exercises: Ankle pumps, Long arc quads, Hip flexion, Hip abd/add, Glut set Seated Reps: 15 Treatments After finishing in BR, pt amb back to recliner to rest. Pt feels a little SOA but quickly recovers. Pt completes Seated EX at recliner. Pt asks to elevate B LE in recliner. Pt then completes Supine EX before rest at end of tx. All needs met, call light in hand. Assessment Current Status: Fair Progress Pt fatigues easily. Pt is nervous about low HR. Dr Wolfe reassures pt. PT Short Term Goals Short Term Goals Time Frame: May 31, 2022 Sit to lyin (Gladys) Lying to sitting on side of be: 3 (Gladys) Sit to stand: 4 (SBA) Chair/teq-xg-anuki transfer: 4 (SBA) Walk 10 feet: 4 (SBA) Walk 50 feet with two turns: 4 (SBA) PT Strickler Attendant Goals Strickler Attendant Goals PT Long-Term Goals Time Frame: Jun 07, 2022 Roll Left & Right (QC): 6 Sit to Lying (QC): 4 (SBA) Lying-Sitting on Side/Bed(QC): 4 (SBA) Sit to Stand (QC): 6 Chair/Npi-jz-Wppmu Xfer(QC): 6 Toilet Transfer (QC): 6 Car Transfer (QC): 4 (SBA) Does the Patient Walk: Yes Walk 10 feet (QC): 6 Walk 50ft with 2 Turns (QC): 6 Walk 150 ft (QC): 88 Walking 10ft on Uneven Surface: 6 1 Step (curb) (QC): 88 4 Steps (QC): 88 12 Steps (QC): 88 Picking up an Object (QC): 6 (using automatic stacker) Wheel 50 feet with 2 turns (QC: 9 Wheel 150 feet: 9 PT Plan Problem List Problem List: Activity Tolerance, Functional Strength Treatment/Plan Treatment Plan: Continue Plan of Care Treatment Plan: Bed Mobility, Education, Functional Activity Jamir, Functional Strength, Group Therapy, Gait, Safety, Therapeutic Exercise, Transfers Treatment Duration: Jun 07, 2022 Frequency: At least 5 of 7 days/Wk (IRF) Estimated Hrs Per Day: 1.5 hours per day Patient and/or Family Agrees t: Yes Time Time In: 900 Time Out: 1000 DATE: Jun 01, 2022 Total Billed Treatment Time: 60 Total Billed Treatment 1, FA x2 (30m) & EX x2 (30m) NEENA PENN E COMMERCE MERCHANDISING COORDINATOR Jun 01, 2022 10:02
--- NOTE | 2022-06-01 11:23 | Occupational Ther Daily Note ---
OT Current Status-Daily Note Subjective Pt drowsy today, difficult to keep eyes open. Pt agrees to therapy. No c/o pain. Edema appears slightly better. Mental Status/Objective Patient Orientation: Person, Place, Time, Situation Attachments: IV ADL-Treatment Pt agrees to shower. Pt ambulated using FWW to bathroom independently. Independent with toilet transfer. Independent with toileting. Independent with showering sitting on BS using grabbar and hand held shower. Pt able to don/doff briefs by self after set up. AFter therapy, pt sitting in recliner with call light/phone in reach. All needs met. Therapy Code Descriptions/Definitions Functional [place] Measure: 0=Not Assessed/NA 4=Minimal Assistance 1=Total Assistance 5=Supervision or Setup 2=Maximal Assistance 6=Modified [place] 3=Moderate Assistance 7=Complete IndependenceSCALE: Activities may be completed with or without assistive devices. 1-Evbkftvmsx-qtqfher completes the activity by him/herself with no assistance from a helper. 5-Set-up or Clean-up Assistance-helper sets up or cleans up; patient completes activity. [place] assists only prior to or following the activity. 4-Supervision or Touching Assistance-helper provides verbal cues and/or touching/steadying and/or contact guard assistance as patient completes activity. Assistance may be provided throughout the activity or intermittently. 3-Partial/Moderate Assistance-helper does LESS THAN HALF the effort. [place] lifts, holds or supports trunk or limbs, but provides less than half the effort. 2-Substantial/Maximal Assistance-helper does MORE THAN HALF the effort. [place] lifts or holds trunk or limbs and provides more than half the effort. 9-Adctsxqyn-lirrwg does ALL the effort. Patient does none of the effort to complete the activity. Or, the assistance of 2 or more helpers is required for the patient to complete the activity. If activity was not attempted, code reason: 7-Patient Refused. 9-Not Applicable-not attempted and the patient did not perform the activity before the current illness, exacerbation or injury. 10-Not Attempted due to Environmental Limitations-(lack of equipment, weather restraints, etc.). 88-Not Attempted due to Medical Conditions or Safety Concerns. Shower/Bathe Self (QC): 6 Upper Body Dressing (QC): 5 Lower Body Dressing (QC): 5 Toileting Hygiene (QC): 6 Toilet Transfer (QC): 6 OT Short Term Goals Short Term Goals Time Frame: Jun 08, 2022 Shower/bathe self: 5 Upper body dressin Lower body dressin Putting on/taking off footwear: 5 OT Population Geneticist Goals Assisted Goals Time Frame: Jun 17, 2022 Acute change in mental status: 0 Inattention: 0 Disorganized thinkin Altered level of consciousness: 0 Eating (QC): 6 Oral Hygiene (QC): 6 Toileting Hygiene (QC): 6 Shower/Bathe Self (QC): 6 Upper Body Dressing (QC): 6 Lower Body Dressing (QC): 6 On/Off Footwear (QC): 6 Additional Goals: 1-Demonstrate ADL Tasks, 2-Verbalize Understanding, 3- ImproveStrength/Jamir 1=Demonstrate adherence to instructed precautions during ADL tasks. 2=Patient will verbalize/demonstrate understanding of assistive devices/modifications for ADL. 3=Patient will improve strength/tolerance for activity to enable patient to perform ADL's. OT Education/Plan Problem List/Assessment Assessment: Decreased Activ Tolerance, Impaired Self-Care Skills Discharge Recommendations Plan/Recommendations: Continue POC Treatment Plan/Plan of Care Patient would benefit from OT for education, treatment and training to promote independence in ADL's, mobility, safety and/or upper extremity function for ADL's. Plan of Care: ADL Retraining, Functional Mobility, Group Exercise/Act as Ind, UE Funct Exercise/Act, OTHER (edema management UEs) Treatment Duration: Jun 17, 2022 Frequency: At least 5 of 7 days/Wk (IRF) Estimated Hrs Per Day: 1.5 hours per day Agreement: Yes Rehab Potential: Fair Time Start Time: 11:00 Stop Time: 12:00 DATE: Jun 01, 2022 Total Time Billed (hr/min): 60 Billed Treatment Time 1 visit-FA 1 (15 min) ADL (45 min) DEVORAH ELKINS Jun 01, 2022 11:23
--- NOTE | 2022-06-01 12:24 | Progress Note - Cardiology ---
Cardiology SOAP Progress Note Subjective: No cp or palp or syncope Intermittent dizziness No n/v/d No focal weakness Gen weakness Mod exertional shortness of breath Extremity swelling as befoe Objective: I&O/Vital Signs 06/01/22 06/01/22 07:22 09:00 Temp 36.5 Pulse 63 Resp 18 B/P (MAP) 138/63 (88) Pulse Ox 96 O2 Delivery Room Air Room Air 06/01/22 00:00 Intake Total 1040 ml Output Total 1200 ml Balance -160 ml Weight (Pounds): 230 Weight (Ounces): 0.0 Weight (Calculated Kilograms): 104.419032 Constitutional: AAO x 3, well-developed, well-nourished Respiratory: No accessory muscle use; other (fair, bilateral air entry, diminished at the bases) Cardiovascular: regular rate-rhythm, S1 and S2, systolic murmur (soft YASSINE at card base) Gastrointestional: No tender; soft; No guarding, No rebound; audible bowel sounds Extremities: other (chronic edema of the L arm; mod bilat LE swelling); No clubbing, No cyanosis Neurologic/Psychiatric: oriented x 3, other (moves all limbs equally) Skin: No rash on exposed areas, No ulcerations on exposed areas Results/Procedures: Labs Laboratory Tests 06/01/22 06:35: White Blood Count 6.3, Red Blood Count 3.00L, Hemoglobin 8.5L, Hematocrit 27L, Mean Corpuscular Volume 89, Mean Corpuscular Hemoglobin 28, Mean Corpuscular Hemoglobin Concent 32, Red Cell Distribution Width 17.6H, Platelet Count 149, Mean Platelet Volume 11.3, Percent Immature Platelet Fraction 4.2, Sodium Level 142, Potassium Level 4.1, Chloride Level 107, Carbon Dioxide Level 24, Anion Gap 11, Blood Urea Nitrogen 45H, Creatinine 2.51H, Estimat Glomerular Filtration Rate 20, BUN/Creatinine Ratio 18, Glucose Level 74, Calcium Level 9.8 Microbiology 05/28/22 C. difficile GDH Antigen & Toxins - Final, Complete Laboratory Tests 05/31/22 06:25 06/01/22 06:35 A/P: Assessment: Episode of bradycardia w/o significant hypotensionyesterday (after using bathroom) - symptomatic (no syncope) - reduce BB Shock: septic and/or cardiogenic - mild troponin elevation due to type 2 PR due to hypotension - shock now resolved; currently hypertensive Hepatitis and jaundice of undetermined etiology - managed by the [facility] Coagulopathy - due to hepatic failure and due to apixaban - improved PAF - Apixaban held during marked hepatic impairment, now resumed Chronic HFrEF due to NICM (primarily managed by her airborne mission systems superintendent Dr Woodward in [place], [place]) - Echocardiogram of 04-08-[address] Felton showed LVEF 10-15% with severe diffuse hypokinesis. LA and RA dilated. Mod to severe AoR. Mod MR. Mod to severe TR. PASP 50-55 mmHg - She reports she had a sleep study done that was "inconclusive" - she does not use CPAP or supplemental oxygen - managed by Dr. Kirk - AICD - implanted in September 2021 at [facility] (single chamber device) - followed by Dr. Woodward - Echo on 05-17-22: LVEF 20-25%, global hypokinesis of LV, mild to mod MR, PASP 35-40 mmHg Acute renal failure - ATN due to hypotension vs hepatorenal syndrome - Cr improved but now appears to have stagnated HLD - statin tx H/o DVT R leg - OAC with Eliquis H/O Breast Cancer - has had a mastectomy Gen weakness - d/t prolonged critical illness Chronic lymphedema of the SUSAN Plan: * Complex management due to multiple comorbidities * BP intermittently elevated. Continue to observe. Consider increasing doxazosin of bp remains problematic * Reduce beta-dai because of continued intermittently bradycardia for which she is symptomatic * Not suitable for NIRALI-inhib/ARB due to renal failure (which still persists) * Renal function essentially stable with addition of diuretics * Monitor lab closely * Advise compression stockings on in the am and off at hs * Anemia - management per Medical services CHAU POPE MD FACP [facility] Jun 01, 2022 12:24
--- NOTE | 2022-06-01 13:08 | Occupational Ther Daily Note ---
OT Current Status-Daily Note Subjective Pt alert, sitting in recliner. Pt agrees to therapy. No c/o pain. Mental Status/Objective Patient Orientation: Person, Place, Time, Situation Attachments: IV ADL-Treatment Pt able to don/doff socks by self after set up. Assist to NIRALI wrap lower legs due to edema. After session, pt sitting in recliner with call light/phone in reach. All needs met in room. Therapy Code Descriptions/Definitions Functional [place] Measure: 0=Not Assessed/NA 4=Minimal Assistance 1=Total Assistance 5=Supervision or Setup 2=Maximal Assistance 6=Modified [place] 3=Moderate Assistance 7=Complete IndependenceSCALE: Activities may be completed with or without assistive devices. 5-Wtryasonnu-nykkhhd completes the activity by him/herself with no assistance from a helper. 5-Set-up or Clean-up Assistance-helper sets up or cleans up; patient completes activity. [place] assists only prior to or following the activity. 4-Supervision or Touching Assistance-helper provides verbal cues and/or touching/steadying and/or contact guard assistance as patient completes activity. Assistance may be provided throughout the activity or intermittently. 3-Partial/Moderate Assistance-helper does LESS THAN HALF the effort. [place] lifts, holds or supports trunk or limbs, but provides less than half the effort. 2-Substantial/Maximal Assistance-helper does MORE THAN HALF the effort. [place] lifts or holds trunk or limbs and provides more than half the effort. 9-Vbaathcym-tfrjsf does ALL the effort. Patient does none of the effort to complete the activity. Or, the assistance of 2 or more helpers is required for the patient to complete the activity. If activity was not attempted, code reason: 7-Patient Refused. 9-Not Applicable-not attempted and the patient did not perform the activity before the current illness, exacerbation or injury. 10-Not Attempted due to Environmental Limitations-(lack of equipment, weather restraints, etc.). 88-Not Attempted due to Medical Conditions or Safety Concerns. Eating (QC): 6 OT Short Term Goals Short Term Goals Time Frame: Jun 08, 2022 Shower/bathe self: 5 Upper body dressin Lower body dressin Putting on/taking off footwear: 5 OT Fci Goals Fci Goals Time Frame: Jun 17, 2022 Acute change in mental status: 0 Inattention: 0 Disorganized thinkin Altered level of consciousness: 0 Eating (QC): 6 Oral Hygiene (QC): 6 Toileting Hygiene (QC): 6 Shower/Bathe Self (QC): 6 Upper Body Dressing (QC): 6 Lower Body Dressing (QC): 6 On/Off Footwear (QC): 6 Additional Goals: 1-Demonstrate ADL Tasks, 2-Verbalize Understanding, 3- ImproveStrength/Jamir 1=Demonstrate adherence to instructed precautions during ADL tasks. 2=Patient will verbalize/demonstrate understanding of assistive devices/modifications for ADL. 3=Patient will improve strength/tolerance for activity to enable patient to perform ADL's. OT Education/Plan Problem List/Assessment Assessment: Decreased Activ Tolerance, Impaired Self-Care Skills Discharge Recommendations Plan/Recommendations: Continue POC Treatment Plan/Plan of Care Patient would benefit from OT for education, treatment and training to promote independence in ADL's, mobility, safety and/or upper extremity function for ADL's. Plan of Care: ADL Retraining, Functional Mobility, Group Exercise/Act as Ind, UE Funct Exercise/Act, OTHER (edema management UEs) Treatment Duration: Jun 17, 2022 Frequency: At least 5 of 7 days/Wk (IRF) Estimated Hrs Per Day: 1.5 hours per day Agreement: Yes Rehab Potential: Fair Time Start Time: 13:00 Stop Time: 13:30 DATE: Jun 01, 2022 Total Time Billed (hr/min): 30 Billed Treatment Time 1 visit-ADL 2 (30 min) DEVORAH ELKINS Jun 01, 2022 13:08
--- NOTE | 2022-06-01 14:11 | Physical Therapy Daily Note ---
PT Daily Note-Current Subjective Pt. states she has felt a little more sleepy today, and still has some dizziness upon standing etc but feels like its no different than usual. Agrees to Rx. Pain Location: No Pain Reported Section J - Health Conditions 1. Rarely or not at all 2. Occasionally 3. Frequently 4. Almost constantly 8. Unable to answer Pain Effect on Sleep: 1 Pain Interference with Therapy: 1 Pain Interference w/Day-to-Day: 1 Mental Status Patient Orientation: Normal For Age Transfers SCALE: Activities may be completed with or without assistive devices. 0-Sdmrpmcusm-txxnrby completes the activity by him/herself with no assistance from a helper. 5-Set-up or Clean-up Assistance-helper sets up or cleans up; patient completes activity. [place] assists only prior to or following the activity. 4-Supervision or Touching Assistance-helper provides verbal cues and/or touching/steadying and/or contact guard assistance as patient completes activity. Assistance may be provided throughout the activity or intermittently. 3-Partial/Moderate Assistance-helper does LESS THAN HALF the effort. [place] lifts, holds or supports trunk or limbs, but provides less than half the effort. 2-Substantial/Maximal Assistance-helper does MORE THAN HALF the effort. [place] lifts or holds trunk or limbs and provides more than half the effort. 6-Ooaeeeypu-gfqeeq does ALL the effort. Patient does none of the effort to complete the activity. Or, the assistance of 2 or more helpers is required for the patient to complete the activity. If activity was not attempted, code reason: 7-Patient Refused. 9-Not Applicable-not attempted and the patient did not perform the activity before the current illness, exacerbation or injury. 10-Not Attempted due to Environmental Limitations-(lack of equipment, weather restraints, etc.). 88-Not Attempted due to Medical Conditions or Safety Concerns. Sit to Stand (QC): 6 Chair/Yaj-xx-Bhgdi Xfer(QC): 6 Toilet Transfer (QC): 6 pt. occas needs several attempts at sit to stand but was able to do this every trial , given time ,with no assist Weight Bearing Full Weight Bearing Full Weight Bearing Gait Training Does the Patient Walk?: Yes Walk 10 feet (QC): 6 Walk 50 ft with 2 Turns(QC): 6 Gait Persons Needed: 1 Gait Assistive Device: FWW 125 ft x 2, CGA secondary to c/o slight dizziness, uses FWW well Exercises Seated Therapy Exercises: Ankle pumps, Sit to stand, Long arc quads, Hip flexion, Hip abd/add Seated Reps: 12 Treatments TRFs, toileting, gait, LE ex Assessment Current Status: Good Progress slow, needs rest breaks, c/o fatigue PT Short Term Goals Short Term Goals Time Frame: May 31, 2022 Sit to lyin (Gladys) Lying to sitting on side of be: 3 (Gladys) Sit to stand: 4 (SBA) Chair/ucr-nd-fnanj transfer: 4 (SBA) Walk 10 feet: 4 (SBA) Walk 50 feet with two turns: 4 (SBA) PT Longterm Goals Paper Reclaiming Machine Operator Goals PT Longterm Goals Time Frame: Jun 07, 2022 Roll Left & Right (QC): 6 Sit to Lying (QC): 4 (SBA) Lying-Sitting on Side/Bed(QC): 4 (SBA) Sit to Stand (QC): 6 Chair/Zwm-bo-Nufhz Xfer(QC): 6 Toilet Transfer (QC): 6 Car Transfer (QC): 4 (SBA) Does the Patient Walk: Yes Walk 10 feet (QC): 6 Walk 50ft with 2 Turns (QC): 6 Walk 150 ft (QC): 88 Walking 10ft on Uneven Surface: 6 1 Step (curb) (QC): 88 4 Steps (QC): 88 12 Steps (QC): 88 Picking up an Object (QC): 6 (using ux lead) Wheel 50 feet with 2 turns (QC: 9 Wheel 150 feet: 9 PT Plan Treatment/Plan Treatment Plan: Continue Plan of Care Treatment Plan: Bed Mobility, Education, Functional Activity Jamir, Functional Strength, Group Therapy, Gait, Safety, Therapeutic Exercise, Transfers Treatment Duration: Jun 07, 2022 Frequency: At least 5 of 7 days/Wk (IRF) Estimated Hrs Per Day: 1.5 hours per day Patient and/or Family Agrees t: Yes Safety Risks/Education Patient Education: Gait Training, Transfer Techniques, Correct Positioning, Safety Issues Teaching Recipient: Patient Teaching Methods: Demonstration, Discussion Response to Teaching: Verbalize Understanding, Return Demonstration, Reinforcement Needed Time Time In: 1338 Time Out: 1408 DATE: Jun 01, 2022 Total Billed Treatment Time: 30 Total Billed Treatment 1,GT15m,EX15m GAYLE LO GLASS MOULD CLEANER Jun 01, 2022 14:11
[2022-06-01 19:45] VITALS: BP 160/74
[2022-06-01] MEDS: MECLIZINE 25 MG (ANTIVERT) TAB PO SCH (21:35)
[2022-06-02] MEDS: VENlafaxine XR 75 MG (EFFEXOR XR) CAP PO SCH (06:12)
[2022-06-02] MEDS: KCL 10 MEQ TAB (MICRO K) PO SCH (06:12)
[2022-06-02] MEDS: CATHETER FLUSH 10 ML SYR IVP SCH ×3 (06:13→21:43)
[2022-06-02 06:42] LABS: POTASSIUM 4.1 MMOL/L (3.6-5.0)
[2022-06-02 06:44] LABS: CALCIUM 9.7 MG/DL (8.5-10.1)
[2022-06-02 06:48] LABS: CREATININE SERUM 2.33 MG/DL (0.60-1.30)
[2022-06-02 07:16] VITALS: BP 121/76
[2022-06-02] MEDS: CYANOCOBALAMIN 1,000 MCG (VITAMIN B-12) TABLET PO SCH (08:11)
[2022-06-02] MEDS: doxAzosin 4 MG (CARDURA) TAB PO SCH ×2 (08:11→21:43)
[2022-06-02] MEDS: LACTOBACILLUS ACIDOPHILUS (PROBIOTIC) CAPSULE PO SCH ×3 (08:11→17:46)
[2022-06-02] MEDS: LETROZOLE 2.5 MG (FEMARA) TAB PO SCH (08:12)
[2022-06-02] MEDS: FUROSEMIDE 40 MG (LASIX) TAB PO SCH (08:12)
[2022-06-02] MEDS: amLODIPine 10 MG (NORVASC) TAB PO SCH (08:12)
[2022-06-02] MEDS: EMPAGLIFLOZIN 10 MG TABLET (JARDIANCE) PO SCH (08:12)
--- NOTE | 2022-06-02 08:12 | Progress Note - Cardiology ---
Cardiology SOAP Progress Note Objective: I&O/Vital Signs 06/02/22 06/02/22 07:16 08:50 Temp 36.2 Pulse 62 Resp 18 B/P (MAP) 121/76 (91) Pulse Ox 93 O2 Delivery Room Air Room Air 06/02/22 00:00 Intake Total 780 ml Output Total 300 ml Balance 480 ml Weight (Pounds): 230 Weight (Ounces): 0.0 Weight (Calculated Kilograms): 104.309818 Constitutional: AAO x 3, well-developed, well-nourished Respiratory: No accessory muscle use; other (fair, bilateral air entry, diminished at the bases) Cardiovascular: regular rate-rhythm, S1 and S2, systolic murmur (soft YASSINE at card base) Gastrointestional: No tender; soft; No guarding, No rebound; audible bowel sounds Extremities: other (chronic edema of the L arm; mod bilat LE swelling); No clubbing, No cyanosis Neurologic/Psychiatric: oriented x 3, other (moves all limbs equally) Skin: No rash on exposed areas, No ulcerations on exposed areas Results/Procedures: Labs Laboratory Tests 06/01/22 17:30: Stool Occult Blood Immunoassay POSITIVEH 06/02/22 06:10: Sodium Level 142, Potassium Level 4.1, Chloride Level 107, Carbon Dioxide Level 25, Anion Gap 10, Blood Urea Nitrogen 43H, Creatinine 2.33H, Estimat Glomerular Filtration Rate 22, BUN/Creatinine Ratio 18, Glucose Level 79, Calcium Level 9.7 Microbiology 05/28/22 C. difficile GDH Antigen & Toxins - Final, Complete A/P: Assessment: Episode of bradycardia w/o significant hypotension on 05-31-22 (after using bathroom) - symptomatic (no syncope) - no further episodes following reduction in BB Shock: septic and/or cardiogenic - mild troponin elevation due to type 2 NM due to hypotension - shock now resolved; BP has improved Hepatitis and jaundice of undetermined etiology - managed by the [facility] Coagulopathy - due to hepatic failure and due to apixaban - improved PAF - Apixaban held during marked hepatic impairment, now resumed Chronic HFrEF due to NICM (primarily managed by her operations officer Dr Woodward in [place], [place]) - Echocardiogram of 04-08-[address] Felton showed LVEF 10-15% with severe diffuse hypokinesis. LA and RA dilated. Mod to severe AoR. Mod MR. Mod to severe TR. PASP 50-55 mmHg - She reports she had a sleep study done that was "inconclusive" - she does not use CPAP or supplemental oxygen - managed by Dr. Kirk - AICD - implanted in September 2021 at [facility] (single chamber device) - followed by Dr. Woodward - Echo on 05-17-22: LVEF 20-25%, global hypokinesis of LV, mild to mod MR, PASP 35-40 mmHg Acute renal failure - ATN due to hypotension vs hepatorenal syndrome - Cr improved improved today HLD - statin tx H/o DVT R leg - OAC with Eliquis H/O Breast Cancer - has had a mastectomy Gen weakness - d/t prolonged critical illness Chronic lymphedema of the SUSAN Plan: * Complex management due to multiple comorbidities * BP had been intermittently elevated, but seems to be improved. Continue to montior * Bradycardia improved following reduction in BB * Not suitable for NIRALI-inhib/ARB due to renal failure (which still persists) * Renal function essentially stable with addition of diuretics * Monitor lab closely * Advise compression stockings on in the am and off at hs * Anemia - management per Medical services JOSIE WINKLER Jun 02, 2022 08:12
[2022-06-02] MEDS: DOCUSATE SODIUM 100 MG (COLACE) CAP PO SCH ×2 (08:13→20:06)
[2022-06-02] MEDS: polyethylene glycoL POWDER 17 GM (MIRALAX) PACK PO SCH ×2 (08:13→20:06)
[2022-06-02] MEDS: SALINE NASAL SPRAY (OCEAN) 45 ML BTL SCH ×4 (08:14→21:58)
[2022-06-02] MEDS: SENNOSIDES 8.6 MG (SENOKOT) TAB PO SCH ×2 (08:14→20:06)
--- NOTE | 2022-06-02 10:35 | Occupational Ther Daily Note ---
OT Current Status-Daily Note Subjective Pt drowsy, lying in bed. Pt has difficult time waking up and getting motivated. Pt agrees to therapy. Pt c/o R heel pain at bottom of foot, reported to nrsg and nrsg examined area. Will place Allevyn on area. Mental Status/Objective Patient Orientation: Person, Place, Time, Situation Attachments: IV ADL-Treatment Independent bed mobility. Ambulated to toilet using FWW independently. Independent with toilet transfer using BSC to increase toilet height, FWW and grabbars. Pt able to complete toileting independent using FWW, grabbars and BSC. After set up, pt able to doff/don brief by self using FWW and grabbars. Pt requested to stay on toilet for BM. Nrsg aware of position. Call light in reach of pt. All needs met. Therapy Code Descriptions/Definitions Functional [place] Measure: 0=Not Assessed/NA 4=Minimal Assistance 1=Total Assistance 5=Supervision or Setup 2=Maximal Assistance 6=Modified [place] 3=Moderate Assistance 7=Complete IndependenceSCALE: Activities may be completed with or without assistive devices. 0-Uvuhhnusha-lganvfe completes the activity by him/herself with no assistance from a helper. 5-Set-up or Clean-up Assistance-helper sets up or cleans up; patient completes activity. [place] assists only prior to or following the activity. 4-Supervision or Touching Assistance-helper provides verbal cues and/or touching/steadying and/or contact guard assistance as patient completes activity. Assistance may be provided throughout the activity or intermittently. 3-Partial/Moderate Assistance-helper does LESS THAN HALF the effort. [place] lifts, holds or supports trunk or limbs, but provides less than half the effort. 2-Substantial/Maximal Assistance-helper does MORE THAN HALF the effort. [place] lifts or holds trunk or limbs and provides more than half the effort. 9-Pxjgopies-pqwhxr does ALL the effort. Patient does none of the effort to complete the activity. Or, the assistance of 2 or more helpers is required for the patient to complete the activity. If activity was not attempted, code reason: 7-Patient Refused. 9-Not Applicable-not attempted and the patient did not perform the activity before the current illness, exacerbation or injury. 10-Not Attempted due to Environmental Limitations-(lack of equipment, weather restraints, etc.). 88-Not Attempted due to Medical Conditions or Safety Concerns. Lower Body Dressing (QC): 5 Toileting Hygiene (QC): 6 Toilet Transfer (QC): 6 OT Short Term Goals Short Term Goals Time Frame: Jun 08, 2022 Shower/bathe self: 5 Upper body dressin Lower body dressin Putting on/taking off footwear: 5 OT Long-Term Goals Long-Term Goals Time Frame: Jun 17, 2022 Acute change in mental status: 0 Inattention: 0 Disorganized thinkin Altered level of consciousness: 0 Eating (QC): 6 Oral Hygiene (QC): 6 Toileting Hygiene (QC): 6 Shower/Bathe Self (QC): 6 Upper Body Dressing (QC): 6 Lower Body Dressing (QC): 6 On/Off Footwear (QC): 6 Additional Goals: 1-Demonstrate ADL Tasks, 2-Verbalize Understanding, 3- ImproveStrength/Jamir 1=Demonstrate adherence to instructed precautions during ADL tasks. 2=Patient will verbalize/demonstrate understanding of assistive devices/modifications for ADL. 3=Patient will improve strength/tolerance for activity to enable patient to perform ADL's. OT Education/Plan Problem List/Assessment Assessment: Decreased Activ Tolerance, Impaired Self-Care Skills Discharge Recommendations Plan/Recommendations: Continue POC Treatment Plan/Plan of Care Patient would benefit from OT for education, treatment and training to promote independence in ADL's, mobility, safety and/or upper extremity function for ADL's. Plan of Care: ADL Retraining, Functional Mobility, Group Exercise/Act as Ind, UE Funct Exercise/Act, OTHER (edema management UEs) Treatment Duration: Jun 17, 2022 Frequency: At least 5 of 7 days/Wk (IRF) Estimated Hrs Per Day: 1.5 hours per day Agreement: Yes Rehab Potential: Fair Time Start Time: 10:00 Stop Time: 11:00 DATE: Jun 02, 2022 Total Time Billed (hr/min): 60 Billed Treatment Time 1 visit-FA 1 (30 min) ADL 2 (30 min) DEVORAH ELKINS Jun 02, 2022 10:35
[2022-06-02] MEDS: APIXABAN 5 MG (ELIQUIS) TABLET PO SCH ×2 (11:21→21:43)
--- NOTE | 2022-06-02 11:52 | Progress Note - Cardiology ---
Cardiology SOAP Progress Note Subjective: No cp or palp or syncope Extremity swelling as before Gen weakness No focal weakness No n/v/d Shortness of breath with activity Objective: I&O/Vital Signs 06/02/22 06/02/22 07:16 08:50 Temp 36.2 Pulse 62 Resp 18 B/P (MAP) 121/76 (91) Pulse Ox 93 O2 Delivery Room Air Room Air 06/02/22 00:00 Intake Total 780 ml Output Total 300 ml Balance 480 ml Weight (Pounds): 230 Weight (Ounces): 0.0 Weight (Calculated Kilograms): [phone] Constitutional: AAO x 3, well-developed, well-nourished Respiratory: No accessory muscle use; other (fair, bilateral air entry, diminished at the bases) Cardiovascular: regular rate-rhythm, S1 and S2, systolic murmur (soft YASSINE at card base) Gastrointestional: No tender; soft; No guarding, No rebound; audible bowel sounds Extremities: other (chronic edema of the L arm; mod bilat LE swelling); No clubbing, No cyanosis Neurologic/Psychiatric: oriented x 3, other (moves all limbs equally) Skin: No rash on exposed areas, No ulcerations on exposed areas Results/Procedures: Labs Laboratory Tests 06/01/22 17:30: Stool Occult Blood Immunoassay POSITIVEH 06/02/22 06:10: Sodium Level 142, Potassium Level 4.1, Chloride Level 107, Carbon Dioxide Level 25, Anion Gap 10, Blood Urea Nitrogen 43H, Creatinine 2.33H, Estimat Glomerular Filtration Rate 22, BUN/Creatinine Ratio 18, Glucose Level 79, Calcium Level 9.7 Microbiology 05/28/22 C. difficile GDH Antigen & Toxins - Final, Complete Laboratory Tests 06/01/22 06:35 06/02/22 06:10 A/P: Assessment: Episode of bradycardia w/o significant hypotension on 05-31-22 (after using bathroom) - symptomatic (no syncope) - no further episodes following reduction in BB Shock: septic and/or cardiogenic - mild troponin elevation due to type 2 [place] due to hypotension - shock now resolved; BP has improved Hepatitis and jaundice of undetermined etiology - managed by the [facility] Coagulopathy - due to hepatic failure and due to apixaban - improved PAF - Apixaban held during marked hepatic impairment, now resumed Chronic HFrEF due to NICM (primarily managed by her fiberglass autobody repairer Dr Woodward in [place], [place]) - Echocardiogram of 04-08-[address] Felton showed LVEF 10-15% with severe diffuse hypokinesis. LA and RA dilated. Mod to severe AoR. Mod MR. Mod to severe TR. PASP 50-55 mmHg - She reports she had a sleep study done that was "inconclusive" - she does not use CPAP or supplemental oxygen - managed by Dr. Kirk - AICD - implanted in September 2021 at [facility] (single chamber device) - followed by Dr. Woodward - Echo on 05-17-22: LVEF 20-25%, global hypokinesis of LV, mild to mod MR, PASP 35-40 mmHg Acute renal failure - ATN due to hypotension vs hepatorenal syndrome - Cr improved improved today HLD - statin tx H/o DVT R leg - OAC with Eliquis H/O Breast Cancer - has had a mastectomy Gen weakness - d/t prolonged critical illness Chronic lymphedema of the SUSAN Plan: * Complex management due to multiple comorbidities * BP had been intermittently elevated, but seems to be improved. Continue to montior * Bradycardia improved following reduction in BB * Not suitable for NIRALI-inhib/ARB due to renal failure (which still persists) * Renal function essentially stable with addition of diuretics * Monitor lab closely CHAU POPE MD FACP [facility] Jun 02, 2022 11:52
--- NOTE | 2022-06-02 11:53 | Physical Therapy Daily Note ---
PT Daily Note-Current Subjective Pt. sttaes she feels she is better and feels good about going home. Pain Location: No Pain Reported Section J - Health Conditions 1. Rarely or not at all 2. Occasionally 3. Frequently 4. Almost constantly 8. Unable to answer Pain Effect on Sleep: 1 Pain Interference with Therapy: 1 Pain Interference w/Day-to-Day: 1 Mental Status Patient Orientation: Normal For Age Attachments: Other-See Comments (Lucien wraps applied by this RESEARCH GEOLOGIST) Transfers SCALE: Activities may be completed with or without assistive devices. 9-Srswdhtpzw-vrmcgpk completes the activity by him/herself with no assistance from a helper. 5-Set-up or Clean-up Assistance-helper sets up or cleans up; patient completes activity. [place] assists only prior to or following the activity. 4-Supervision or Touching Assistance-helper provides verbal cues and/or touching/steadying and/or contact guard assistance as patient completes activity. Assistance may be provided throughout the activity or intermittently. 3-Partial/Moderate Assistance-helper does LESS THAN HALF the effort. [place] lifts, holds or supports trunk or limbs, but provides less than half the effort. 2-Substantial/Maximal Assistance-helper does MORE THAN HALF the effort. [place] lifts or holds trunk or limbs and provides more than half the effort. 9-Jrmsiuvfx-mxjqja does ALL the effort. Patient does none of the effort to complete the activity. Or, the assistance of 2 or more helpers is required for the patient to complete the activity. If activity was not attempted, code reason: 7-Patient Refused. 9-Not Applicable-not attempted and the patient did not perform the activity before the current illness, exacerbation or injury. 10-Not Attempted due to Environmental Limitations-(lack of equipment, weather restraints, etc.). 88-Not Attempted due to Medical Conditions or Safety Concerns. Sit to Stand (QC): 6 Chair/Omo-zj-Leyac Xfer(QC): 6 Toilet Transfer (QC): 6 Weight Bearing Full Weight Bearing Full Weight Bearing Gait Training Does the Patient Walk?: Yes Walk 10 feet (QC): 6 Walk 50 ft with 2 Turns(QC): 6 Gait Assistive Device: FWW 125 ft x 2, 50 ft x2 FWW some dyspnea noted but recovers quickly Exercises Seated Therapy Exercises: Ankle pumps, Sit to stand, Long arc quads, Hip flexion, Hip abd/add Seated Reps: 15 NuStep Minutes: 15 NuStep Workload: 1 Treatments gait, TRFs, toileting, LE ex Assessment Current Status: Good Progress PT Short Term Goals Short Term Goals Time Frame: May 31, 2022 Sit to lyin (Gladys) Lying to sitting on side of be: 3 (Gladys) Sit to stand: 4 (SBA) Chair/dum-gg-orbag transfer: 4 (SBA) Walk 10 feet: 4 (SBA) Walk 50 feet with two turns: 4 (SBA) PT Aboriginal Education Teacher Goals Fpc Goals PT Aboriginal Education Teacher Goals Time Frame: Jun 07, 2022 Roll Left & Right (QC): 6 Sit to Lying (QC): 4 (SBA) Lying-Sitting on Side/Bed(QC): 4 (SBA) Sit to Stand (QC): 6 Chair/Zso-jk-Lsody Xfer(QC): 6 Toilet Transfer (QC): 6 Car Transfer (QC): 4 (SBA) Does the Patient Walk: Yes Walk 10 feet (QC): 6 Walk 50ft with 2 Turns (QC): 6 Walk 150 ft (QC): 88 Walking 10ft on Uneven Surface: 6 1 Step (curb) (QC): 88 4 Steps (QC): 88 12 Steps (QC): 88 Picking up an Object (QC): 6 (using seismograph computer) Wheel 50 feet with 2 turns (QC: 9 Wheel 150 feet: 9 PT Plan Treatment/Plan Treatment Plan: Continue Plan of Care Treatment Plan: Bed Mobility, Education, Functional Activity Jamir, Functional Strength, Group Therapy, Gait, Safety, Therapeutic Exercise, Transfers Treatment Duration: Jun 07, 2022 Frequency: At least 5 of 7 days/Wk (IRF) Estimated Hrs Per Day: 1.5 hours per day Patient and/or Family Agrees t: Yes Safety Risks/Education Patient Education: Gait Training, Transfer Techniques, Correct Positioning, Disease Process, Safety Issues Teaching Recipient: Patient Teaching Methods: Demonstration, Discussion Response to Teaching: Verbalize Understanding, Return Demonstration, Reinforcement Needed Time Time In: 1100 Time Out: 1200 DATE: Jun 02, 2022 Total Billed Treatment Time: 60 Total Billed Treatment 1,GT28m,EX32m GAYLE LO RESEARCH GEOLOGIST Jun 02, 2022 11:53
--- NOTE | 2022-06-02 12:01 | PM&R Progress Note ---
Subjective HPI/CC On Admission Date Seen by Provider: Jun 02, 2022 Time Seen by Provider: 11:30 Subjective/Events-last exam 06/02/2022: Doing better each day Ambulating well Set for DC Monday No pain reported 06/01/2022: Improved every day Focused on the edema but that will take time Had a near syncopal event today when pulse was 40 so Cardiology adjusted meds 05/31/2022: Doing well Less lethargy Creatinine stable BP stable No concerns except edema of the legs 05/30/2022: Doing well Improved overall No pain reported Edema persists Labs reviewed 05/29/2022: Patient doing really well Appears improved every day Still gaining water weight Labs reviewed Mild epistaxis every day 05/28/2022: Patient doing well Moving around better Discontinue catheter tomorrow she is reluctant that needs to be done Eating and drinking well Bowels are moving No more epistaxis 05/27/2022: Making some progress Less weak Haddad cath still in place Purewick did not work for her in the past Incontinence is disturbing for her Participation is improved 05/26/2022: Improved status Very debilitated Labs improved Lasix improved edema Remains with Haddad Incontinence normally 05/25/2022: Slow moving today Labs reviewed Appreciate Dr Lundberg direction on bradycardia and HTN Labs reviewed Haddad cath in place Lasix given Third-spacing of fluid noted Nosebleeds so will initiate saline spray Review of Systems General: Fatigue, Malaise Cardiovascular: Edema Objective Exam Vital Signs Vital Signs Date Time Temp Pulse Resp B/P (MAP) Pulse Ox O2 Delivery O2 Flow Rate FiO2 06/02/22 20:15 36.6 66 16 124/74 (91) 96 Room Air Capillary Refill : General Appearance: No Apparent Distress, WD/WN, Chronically ill, Obese HEENT: PERRL/EOMI, Normal ENT Inspection, Pharynx Normal Neck: Full Range of Motion, Normal Inspection, Non Tender, Supple, Carotid Bruit Respiratory: Chest Non Tender, Lungs Clear, No Accessory Muscle Use, No Respiratory Distress, Decreased Breath Sounds Cardiovascular: Regular Rate, Rhythm, No Gallop, No JVD, No Murmur, Normal Peripheral Pulses Gastrointestinal: Normal Bowel Sounds, No Organomegaly, No Pulsatile Mass, Non Tender, Soft Back: Normal Inspection, No CVA Tenderness, No Vertebral Tenderness Extremity: Normal Capillary Refill, Normal Inspection, Normal Range of Motion, Non Tender, No Calf Tenderness, Pedal Edema Neurologic/Psychiatric: Alert, Oriented x3, Normal Mood/Affect, customs house broker II-XII Norm as Tested, Abnormal Gait, Motor Weakness (generalized) Skin: Normal Color, Warm/Dry Lymphatic: No Adenopathy Results/Procedures Lab Laboratory Tests 06/02/22 06:10 Patient resulted labs reviewed. FIM Transfers Therapy Code Descriptions/Definitions Functional [place] Measure: 0=Not Assessed/NA 4=Minimal Assistance 1=Total Assistance 5=Supervision or Setup 2=Maximal Assistance 6=Modified [place] 3=Moderate Assistance 7=Complete IndependenceSCALE: Activities may be completed with or without assistive devices. 2-Euguldtgpk-lgadjcj completes the activity by him/herself with no assistance from a helper. 5-Set-up or Clean-up Assistance-helper sets up or cleans up; patient completes activity. [place] assists only prior to or following the activity. 4-Supervision or Touching Assistance-helper provides verbal cues and/or touching/steadying and/or contact guard assistance as patient completes activity. Assistance may be provided throughout the activity or intermittently. 3-Partial/Moderate Assistance-helper does LESS THAN HALF the effort. [place] lifts, holds or supports trunk or limbs, but provides less than half the effort. 2-Substantial/Maximal Assistance-helper does MORE THAN HALF the effort. [place] lifts or holds trunk or limbs and provides more than half the effort. 9-Fbsitybud-nqisqc does ALL the effort. Patient does none of the effort to complete the activity. Or, the assistance of 2 or more helpers is required for the patient to complete the activity. If activity was not attempted, code reason: 7-Patient Refused. 9-Not Applicable-not attempted and the patient did not perform the activity before the current illness, exacerbation or injury. 10-Not Attempted due to Environmental Limitations-(lack of equipment, weather restraints, etc.). 88-Not Attempted due to Medical Conditions or Safety Concerns. Roll Left to Right (QC): 4 Sit to Lying (QC): 4 Sit to Stand (QC): 6 Chair/Ald-wo-Jwxgp Xfer(QC): 6 Car Transfer (QC): 3 Gait Training Does the Patient Walk?: Yes Distance: 15' Walk 10 feet (QC): 6 Walk 50 ft with 2 Turns(QC): 6 Walk 150 ft (QC): 88 Walking 10ft/uneven surface-QC: 4 Gait Persons Needed: 1 Gait Assistive Device: FWW Wheelchair Training Does the Pt Use a Wheelchair?: Yes Distance: 20' Wheel 50 ft with 2 turns (QC): 88 Wheel 150 ft (QC): 88 Type of Wheelchair: Manual Stair Training 1 Step (curb) (QC): 88 4 Steps (QC): 88 12 Steps (QC): 88 Balance Picking up an Object (QC): 4 (CGA using a statistical consultant.) ADL-Treatment Eating (QC): 6 Oral Hygiene (QC): 6 Shower/Bathe Self (QC): 6 Upper Body Dressing (QC): 5 Lower Body Dressing (QC): 5 On/Off Footwear (QC): 3 (Min A with R gripper sock donning/doffing. Pt able to complete L gripper sock.) Toileting Hygiene (QC): 6 Toilet Transfer (QC): 6 Assessment/Plan Assessment and Plan Assess & Plan/Chief Complaint Assessment: Cardiogenic shock Debility LUIS Liver shock AF PAF s/p RVR Liver shock s/p E coli severe sepsis UTI Hypoxia Volume overload HTN OOC Bradycardia Pacemaker Epistaxis resolved Anemia hgb 8.8 Near syncope pulse 40 on 06/01/22 Plan: Monitor creat Monitor CHF Monitor O2 Completed abx 05/25/2022: Avelina Haddad for I/O's Appreciate Dr Lundberg 05/26/2022: Diuresis Monitor closely 05/27/2022: Ambulate Monitor closely 05/28/2022: Discontinue catheter tomorrow 05/29/2022: Monitor weight Monitor creatinine Catie discontinued today 05/30/2022: Monitor creat and hgb 05/31/2022: Edema management 06/01/2022: Monitor closely 06/02/2022: Monitor creat DC Sat (1) Cardiogenic shock Status: Resolved (2) Septic shock Status: Resolved (3) Splenic cyst Status: Acute (4) Hypercalcemia Status: Acute (5) ATN (acute tubular necrosis) Status: Acute (6) Gilbert syndrome Status: Chronic (7) Lactic acidosis Status: Resolved Resolution Date/Time: 05/19/22 @ 19:07 (8) E. coli UTI Status: Acute (9) Shock liver Status: Acute (10) Unconjugated hyperbilirubinemia Status: Acute (11) Acute on chronic HFrEF (heart failure with reduced ejection fraction) Status: Acute (12) NSTEMI (non-ST elevation myocardial infarction) Status: Acute (13) Paroxysmal atrial fibrillation with RVR (14) Vomiting in adult Status: Acute ANNEL ESTES DO Jun 02, 2022 12:01
--- NOTE | 2022-06-02 13:40 | Occupational Ther Daily Note ---
OT Current Status-Daily Note Subjective Pt alert, sitting in recliner. Pt agrees to therapy. No c/o pain. Pt c/o fatigue and continues to be drowsy in pm treatment. Mental Status/Objective Patient Orientation: Person, Place, Time, Situation Attachments: IV ADL-Treatment Independent with toileting and toilet transfer. Independent with oral care standing at sink. Pt independent eating. Discussed energy conservation with gathering clothing prior to showering. Pt states that she gathers clothing and places in her chair prior to shower at home then takes shower. After shower sits and rests in chair then dresses at her convenience. Pt encouraged to continue this to decrease fatigue during daily activities. After therapy, pt sitting in recliner with call light/phone in reach. All needs met in room. Therapy Code Descriptions/Definitions Functional [place] Measure: 0=Not Assessed/NA 4=Minimal Assistance 1=Total Assistance 5=Supervision or Setup 2=Maximal Assistance 6=Modified [place] 3=Moderate Assistance 7=Complete IndependenceSCALE: Activities may be completed with or without assistive devices. 6-Itbkuraxjx-jzgccgn completes the activity by him/herself with no assistance from a helper. 5-Set-up or Clean-up Assistance-helper sets up or cleans up; patient completes activity. [place] assists only prior to or following the activity. 4-Supervision or Touching Assistance-helper provides verbal cues and/or touching/steadying and/or contact guard assistance as patient completes activity. Assistance may be provided throughout the activity or intermittently. 3-Partial/Moderate Assistance-helper does LESS THAN HALF the effort. [place] lifts, holds or supports trunk or limbs, but provides less than half the effort. 2-Substantial/Maximal Assistance-helper does MORE THAN HALF the effort. [place] lifts or holds trunk or limbs and provides more than half the effort. 1-Waxjyfnex-ouxlhv does ALL the effort. Patient does none of the effort to complete the activity. Or, the assistance of 2 or more helpers is required for the patient to complete the activity. If activity was not attempted, code reason: 7-Patient Refused. 9-Not Applicable-not attempted and the patient did not perform the activity before the current illness, exacerbation or injury. 10-Not Attempted due to Environmental Limitations-(lack of equipment, weather restraints, etc.). 88-Not Attempted due to Medical Conditions or Safety Concerns. Eating (QC): 6 Oral Hygiene (QC): 6 Toileting Hygiene (QC): 6 Toilet Transfer (QC): 6 OT Short Term Goals Short Term Goals Time Frame: Jun 08, 2022 Shower/bathe self: 5 Upper body dressin Lower body dressin Putting on/taking off footwear: 5 OT Snf Goals Office Asst Goals Time Frame: Jun 17, 2022 Acute change in mental status: 0 Inattention: 0 Disorganized thinkin Altered level of consciousness: 0 Eating (QC): 6 Oral Hygiene (QC): 6 Toileting Hygiene (QC): 6 Shower/Bathe Self (QC): 6 Upper Body Dressing (QC): 6 Lower Body Dressing (QC): 6 On/Off Footwear (QC): 6 Additional Goals: 1-Demonstrate ADL Tasks, 2-Verbalize Understanding, 3- ImproveStrength/Jamir 1=Demonstrate adherence to instructed precautions during ADL tasks. 2=Patient will verbalize/demonstrate understanding of assistive devices/modifications for ADL. 3=Patient will improve strength/tolerance for activity to enable patient to perform ADL's. OT Education/Plan Problem List/Assessment Assessment: Decreased Activ Tolerance, Impaired Self-Care Skills Discharge Recommendations Plan/Recommendations: Continue POC Treatment Plan/Plan of Care Patient would benefit from OT for education, treatment and training to promote independence in ADL's, mobility, safety and/or upper extremity function for ADL's. Plan of Care: ADL Retraining, Functional Mobility, Group Exercise/Act as Ind, UE Funct Exercise/Act, OTHER (edema management UEs) Treatment Duration: Jun 17, 2022 Frequency: At least 5 of 7 days/Wk (IRF) Estimated Hrs Per Day: 1.5 hours per day Agreement: Yes Rehab Potential: Fair Time Start Time: 13:00 Stop Time: 13:30 DATE: Jun 02, 2022 Total Time Billed (hr/min): 30 Billed Treatment Time 1 visit-ADL 2 (30 min) DEVORAH ELKINS Jun 02, 2022 13:40
--- NOTE | 2022-06-02 13:59 | Physical Therapy Daily Note ---
PT Daily Note-Current Subjective Pt. c/o she is tired but agrees to Rx. Feels she is ready for DC on Sat Pain Location: No Pain Reported Section J - Health Conditions 1. Rarely or not at all 2. Occasionally 3. Frequently 4. Almost constantly 8. Unable to answer Pain Effect on Sleep: 1 Pain Interference with Therapy: 1 Pain Interference w/Day-to-Day: 1 Mental Status Patient Orientation: Normal For Age Transfers SCALE: Activities may be completed with or without assistive devices. 3-Cuzmxpktyi-llmttag completes the activity by him/herself with no assistance from a helper. 5-Set-up or Clean-up Assistance-helper sets up or cleans up; patient completes activity. [place] assists only prior to or following the activity. 4-Supervision or Touching Assistance-helper provides verbal cues and/or touching/steadying and/or contact guard assistance as patient completes activity. Assistance may be provided throughout the activity or intermittently. 3-Partial/Moderate Assistance-helper does LESS THAN HALF the effort. [place] lifts, holds or supports trunk or limbs, but provides less than half the effort. 2-Substantial/Maximal Assistance-helper does MORE THAN HALF the effort. [place] lifts or holds trunk or limbs and provides more than half the effort. 5-Lizfsrtsz-obtzpb does ALL the effort. Patient does none of the effort to complete the activity. Or, the assistance of 2 or more helpers is required for the patient to complete the activity. If activity was not attempted, code reason: 7-Patient Refused. 9-Not Applicable-not attempted and the patient did not perform the activity before the current illness, exacerbation or injury. 10-Not Attempted due to Environmental Limitations-(lack of equipment, weather restraints, etc.). 88-Not Attempted due to Medical Conditions or Safety Concerns. all TRFs mod I , chair, toilet and car Weight Bearing Full Weight Bearing Full Weight Bearing Gait Training Does the Patient Walk?: Yes Walk 150 ft (QC): 4 Gait Assistive Device: FWW pt. walked 150 ft but required CGA as she fatigued at about 100 ft but completed the distance Exercises Seated Therapy Exercises: Ankle pumps, Sit to stand, Long arc quads, Hip flexion, Hip abd/add Seated Reps: 12 Treatments TRFs, gait, ex Assessment Current Status: Good Progress PT Short Term Goals Short Term Goals Time Frame: May 31, 2022 Sit to lyin (Gladys) Lying to sitting on side of be: 3 (Gladys) Sit to stand: 4 (SBA) Chair/svt-lh-hmbnn transfer: 4 (SBA) Walk 10 feet: 4 (SBA) Walk 50 feet with two turns: 4 (SBA) PT Long-Term Goals Long-Term Goals PT Agricultural Equipment Mechanic Goals Time Frame: Jun 07, 2022 Roll Left & Right (QC): 6 Sit to Lying (QC): 4 (SBA) Lying-Sitting on Side/Bed(QC): 4 (SBA) Sit to Stand (QC): 6 Chair/Qmx-wx-Vdnqz Xfer(QC): 6 Toilet Transfer (QC): 6 Car Transfer (QC): 4 (SBA) Does the Patient Walk: Yes Walk 10 feet (QC): 6 Walk 50ft with 2 Turns (QC): 6 Walk 150 ft (QC): 88 Walking 10ft on Uneven Surface: 6 1 Step (curb) (QC): 88 4 Steps (QC): 88 12 Steps (QC): 88 Picking up an Object (QC): 6 (using line haul driver) Wheel 50 feet with 2 turns (QC: 9 Wheel 150 feet: 9 PT Plan Treatment/Plan Treatment Plan: Continue Plan of Care Treatment Plan: Bed Mobility, Education, Functional Activity Jamir, Functional Strength, Group Therapy, Gait, Safety, Therapeutic Exercise, Transfers Treatment Duration: Jun 07, 2022 Frequency: At least 5 of 7 days/Wk (IRF) Estimated Hrs Per Day: 1.5 hours per day Patient and/or Family Agrees t: Yes Safety Risks/Education Patient Education: Gait Training, Transfer Techniques, Correct Positioning, Safety Issues Teaching Recipient: Patient Teaching Methods: Demonstration, Discussion Response to Teaching: Verbalize Understanding, Return Demonstration, Reinforcement Needed Time Time In: 1330 Time Out: 1400 DATE: Jun 02, 2022 Total Billed Treatment Time: 30 Total Billed Treatment 1,GT19,EX11 GAYLE LO ELECTRONICS TECHNICIAN APPRENTICE Jun 02, 2022 13:59
[2022-06-02 20:15] VITALS: BP 124/74
[2022-06-02] MEDS: MECLIZINE 25 MG (ANTIVERT) TAB PO SCH (21:43)
--- NOTE | 2022-06-03 06:18 | PM&R Progress Note ---
Subjective HPI/CC On Admission Date Seen by Provider: Jun 03, 2022 Time Seen by Provider: 12:30 Subjective/Events-last exam 06/03/2022: DC planned for tomorrow Sister visiting No pain reported 06/02/2022: Doing better each day Ambulating well Set for DC Monday No pain reported 06/01/2022: Improved every day Focused on the edema but that will take time Had a near syncopal event today when pulse was 40 so Cardiology adjusted meds 05/31/2022: Doing well Less lethargy Creatinine stable BP stable No concerns except edema of the legs 05/30/2022: Doing well Improved overall No pain reported Edema persists Labs reviewed 05/29/2022: Patient doing really well Appears improved every day Still gaining water weight Labs reviewed Mild epistaxis every day 05/28/2022: Patient doing well Moving around better Discontinue catheter tomorrow she is reluctant that needs to be done Eating and drinking well Bowels are moving No more epistaxis 05/27/2022: Making some progress Less weak Haddad cath still in place Purewick did not work for her in the past Incontinence is disturbing for her Participation is improved 05/26/2022: Improved status Very debilitated Labs improved Lasix improved edema Remains with Haddad Incontinence normally 05/25/2022: Slow moving today Labs reviewed Appreciate Dr Lundberg direction on bradycardia and HTN Labs reviewed Haddad cath in place Lasix given Third-spacing of fluid noted Nosebleeds so will initiate saline spray Review of Systems General: Fatigue, Malaise Objective Exam Vital Signs Vital Signs Date Time Temp Pulse Resp B/P (MAP) Pulse Ox O2 Delivery O2 Flow Rate FiO2 06/03/22 09:52 Room Air 06/03/22 07:16 36.8 68 18 115/58 (77) 98 Capillary Refill : General Appearance: No Apparent Distress, WD/WN, Chronically ill, Obese HEENT: PERRL/EOMI, Normal ENT Inspection, Pharynx Normal Neck: Full Range of Motion, Normal Inspection, Non Tender, Supple, Carotid Bruit Respiratory: Chest Non Tender, Lungs Clear, No Accessory Muscle Use, No Respiratory Distress, Decreased Breath Sounds Cardiovascular: Regular Rate, Rhythm, No Gallop, No JVD, No Murmur, Normal Per ipheral Pulses Gastrointestinal: Normal Bowel Sounds, No Organomegaly, No Pulsatile Mass, Non Tender, Soft Back: Normal Inspection, No CVA Tenderness, No Vertebral Tenderness Extremity: Normal Capillary Refill, Normal Inspection, Normal Range of Motion, Non Tender, No Calf Tenderness, Pedal Edema Neurologic/Psychiatric: Alert, Oriented x3, Normal Mood/Affect, sorting and folding supervisor II-XII Norm as Tested, Abnormal Gait, Motor Weakness (generalized) Skin: Normal Color, Warm/Dry Lymphatic: No Adenopathy Results/Procedures Lab Laboratory Tests 06/03/22 06:35 Patient resulted labs reviewed. FIM Transfers Therapy Code Descriptions/Definitions Functional [place] Measure: 0=Not Assessed/NA 4=Minimal Assistance 1=Total Assistance 5=Supervision or Setup 2=Maximal Assistance 6=Modified Chaves 3=Moderate Assistance 7=Complete IndependenceSCALE: Activities may be completed with or without assistive devices. 5-Gawtplegxy-gltyyjc completes the activity by him/herself with no assistance from a helper. 5-Set-up or Clean-up Assistance-helper sets up or cleans up; patient completes activity. [place] assists only prior to or following the activity. 4-Supervision or Touching Assistance-helper provides verbal cues and/or touching/steadying and/or contact guard assistance as patient completes activity. Assistance may be provided throughout the activity or intermittently. 3-Partial/Moderate Assistance-helper does LESS THAN HALF the effort. [place] lifts, holds or supports trunk or limbs, but provides less than half the effort. 2-Substantial/Maximal Assistance-helper does MORE THAN HALF the effort. [place] lifts or holds trunk or limbs and provides more than half the effort. 9-Mvfusdsya-thdfkg does ALL the effort. Patient does none of the effort to complete the activity. Or, the assistance of 2 or more helpers is required for the patient to complete the activity. If activity was not attempted, code reason: 7-Patient Refused. 9-Not Applicable-not attempted and the patient did not perform the activity before the current illness, exacerbation or injury. 10-Not Attempted due to Environmental Limitations-(lack of equipment, weather restraints, etc.). 88-Not Attempted due to Medical Conditions or Safety Concerns. Roll Left to Right (QC): 4 Sit to Lying (QC): 4 Sit to Stand (QC): 6 Chair/Lwf-ok-Esfhj Xfer(QC): 6 Car Transfer (QC): 3 Gait Training Does the Patient Walk?: Yes Distance: 15' Walk 10 feet (QC): 6 Walk 50 ft with 2 Turns(QC): 6 Walk 150 ft (QC): 4 Walking 10ft/uneven surface-QC: 4 Gait Persons Needed: 1 Gait Assistive Device: FWW Wheelchair Training Does the Pt Use a Wheelchair?: Yes Distance: 20' Wheel 50 ft with 2 turns (QC): 88 Wheel 150 ft (QC): 88 Type of Wheelchair: Manual Stair Training 1 Step (curb) (QC): 88 4 Steps (QC): 88 12 Steps (QC): 88 Balance Picking up an Object (QC): 4 (CGA using a nuclear plant operator.) ADL-Treatment Eating (QC): 6 Oral Hygiene (QC): 6 Shower/Bathe Self (QC): 6 Upper Body Dressing (QC): 5 Lower Body Dressing (QC): 5 On/Off Footwear (QC): 3 (Min A with R gripper sock donning/doffing. Pt able to complete L gripper sock.) Toileting Hygiene (QC): 6 Toilet Transfer (QC): 6 Assessment/Plan Assessment and Plan Assess & Plan/Chief Complaint Assessment: Cardiogenic shock Debility LUIS Liver shock AF PAF s/p RVR Liver shock s/p E coli severe sepsis UTI Hypoxia Volume overload HTN OOC Bradycardia Pacemaker Epistaxis resolved Anemia hgb 8.8 Near syncope pulse 40 on 06/01/22 Plan: Monitor creat Monitor CHF Monitor O2 Completed abx 05/25/2022: Avelina Haddad for I/O's Appreciate Dr Lundberg 05/26/2022: Diuresis Monitor closely 05/27/2022: Ambulate Monitor closely 05/28/2022: Discontinue catheter tomorrow 05/29/2022: Monitor weight Monitor creatinine Catie discontinued today 05/30/2022: Monitor creat and hgb 05/31/2022: Edema management 06/01/2022: Monitor closely 06/02/2022: Monitor creat DC 06/03/2022: DC tomorrow (1) Cardiogenic shock Status: Resolved (2) Septic shock Status: Resolved (3) Splenic cyst Status: Acute (4) Hypercalcemia Status: Acute (5) ATN (acute tubular necrosis) Status: Acute (6) Gilbert syndrome Status: Chronic (7) Lactic acidosis Status: Resolved Resolution Date/Time: 05/19/22 @ 19:07 (8) E. coli UTI Status: Acute (9) Shock liver Status: Acute (10) Unconjugated hyperbilirubinemia Status: Acute (11) Acute on chronic HFrEF (heart failure with reduced ejection fraction) Status: Acute (12) NSTEMI (non-ST elevation myocardial infarction) Status: Acute (13) Paroxysmal atrial fibrillation with RVR (14) Vomiting in adult Status: Acute ANNEL ESTES DO Jun 03, 2022 06:18
[2022-06-03] MEDS: VENlafaxine XR 75 MG (EFFEXOR XR) CAP PO SCH (06:30)
[2022-06-03] MEDS: CATHETER FLUSH 10 ML SYR IVP SCH ×3 (06:30→21:30)
[2022-06-03] MEDS: KCL 10 MEQ TAB (MICRO K) PO SCH (06:30)
[2022-06-03 07:05] LABS: POTASSIUM 3.9 MMOL/L (3.6-5.0)
[2022-06-03 07:07] LABS: CALCIUM 9.6 MG/DL (8.5-10.1)
[2022-06-03 07:11] LABS: CREATININE SERUM 2.16 MG/DL (0.60-1.30)
[2022-06-03 07:16] VITALS: BP 115/58
[2022-06-03] MEDS: LACTOBACILLUS ACIDOPHILUS (PROBIOTIC) CAPSULE PO SCH ×3 (08:20→17:27)
[2022-06-03] MEDS: doxAzosin 4 MG (CARDURA) TAB PO SCH ×2 (08:20→21:30)
[2022-06-03] MEDS: APIXABAN 5 MG (ELIQUIS) TABLET PO SCH ×2 (08:21→21:30)
[2022-06-03] MEDS: EMPAGLIFLOZIN 10 MG TABLET (JARDIANCE) PO SCH (08:21)
[2022-06-03] MEDS: FUROSEMIDE 40 MG (LASIX) TAB PO SCH (08:21)
[2022-06-03] MEDS: LETROZOLE 2.5 MG (FEMARA) TAB PO SCH (08:21)
[2022-06-03] MEDS: SALINE NASAL SPRAY (OCEAN) 45 ML BTL SCH ×4 (08:21→21:29)
[2022-06-03] MEDS: DOCUSATE SODIUM 100 MG (COLACE) CAP PO SCH ×2 (08:21→21:30)
[2022-06-03] MEDS: CYANOCOBALAMIN 1,000 MCG (VITAMIN B-12) TABLET PO SCH (08:21)
[2022-06-03] MEDS: amLODIPine 10 MG (NORVASC) TAB PO SCH (08:22)
[2022-06-03] MEDS: polyethylene glycoL POWDER 17 GM (MIRALAX) PACK PO SCH ×2 (08:23→21:30)
[2022-06-03] MEDS: SENNOSIDES 8.6 MG (SENOKOT) TAB PO SCH ×2 (08:24→21:30)
--- NOTE | 2022-06-03 10:20 | Occupational Ther Daily Note ---
OT Current Status-Daily Note Subjective Pt groggy and awake lying in bed. Pt takes minimal encouragement to start the day due to being fatigued. Pt agrees to therapy. Redness noted on R lower leg and foot, nrsg notified. Mental Status/Objective Patient Orientation: Person, Place, Time, Situation ADL-Treatment Pt agrees to shower. Pt demonstrates ability to complete eating independently. Pt independent with toileting and toilet transfer using BSC to raise toilet height, FWW and grabbars. Pt demonstrates ability to don/doff upper body clothi ng independently. Pt able to don/doff lower body clothing independently. Pt dons/doffs socks by self, assist needed to NIRALI wrap feet and lower legs for edema. Sitting on BSC 100% of the time, pt completes shower independently using grabbars and hand held shower. Pt stands at sink leaning over to place forearms on counter to complete oral care independently. After session, pt left in care of PT. All needs met. Therapy Code Descriptions/Definitions Functional [place] Measure: 0=Not Assessed/NA 4=Minimal Assistance 1=Total Assistance 5=Supervision or Setup 2=Maximal Assistance 6=Modified [place] 3=Moderate Assistance 7=Complete IndependenceSCALE: Activities may be completed with or without assistive devices. 1-Oqsfdlvoia-lihribt completes the activity by him/herself with no assistance from a helper. 5-Set-up or Clean-up Assistance-helper sets up or cleans up; patient completes activity. [place] assists only prior to or following the activity. 4-Supervision or Touching Assistance-helper provides verbal cues and/or touch ing/steadying and/or contact guard assistance as patient completes activity. Assistance may be provided throughout the activity or intermittently. 3-Partial/Moderate Assistance-helper does LESS THAN HALF the effort. [place] lifts, holds or supports trunk or limbs, but provides less than half the effort. 2-Substantial/Maximal Assistance-helper does MORE THAN HALF the effort. [place] lifts or holds trunk or limbs and provides more than half the effort. 6-Ikbdaipve-aebwtn does ALL the effort. Patient does none of the effort to complete the activity. Or, the assistance of 2 or more helpers is required for the patient to complete the activity. If activity was not attempted, code reason: 7-Patient Refused. 9-Not Applicable-not attempted and the patient did not perform the activity before the current illness, exacerbation or injury. 10-Not Attempted due to Environmental Limitations-(lack of equipment, weather restraints, etc.). 88-Not Attempted due to Medical Conditions or Safety Concerns. Eating (QC): 6 Oral Hygiene (QC): 6 Shower/Bathe Self (QC): 6 Upper Body Dressing (QC): 6 Lower Body Dressing (QC): 6 On/Off Footwear: 3 Toileting Hygiene (QC): 6 Toilet Transfer (QC): 6 BIMS CAM BIMS Expression of Ideas and Wants: Without Difficulty Understanding Verbal Content: Understands Brief Interview/Mental Status: Yes IRF NEIL BIMS: IRF NEIL BIMS Response (Comments) Value Repitition of Three Words Three 3 Recalls Socks Yes, After Cueing (Wear) 1 Recalls Blue Yes, No Cue Required 2 Recalls Bed Yes, No Cue Required 2 Year Correct 3 Month Accurate Within 5 Days 2 Day Correct 1 Total 14 Patient Normally Able to Recal: Current Session, Location of own room, Staff Names and faces, That he/she in a [facility] Should Staff Asses. Mental St.: No CAM Mental Status Change/Baseline: 0 Inattention: 0 Disorganized thinkin Altered level of consciousness: 0 OT Short Term Goals Short Term Goals Time Frame: Jun 08, 2022 Shower/bathe self: 5 Upper body dressin Lower body dressin Putting on/taking off footwear: 5 OT Fpc Goals Fpc Goals Time Frame: Jun 17, 2022 Acute change in mental status: 0 Inattention: 0 Disorganized thinkin Altered level of consciousness: 0 Eating (QC): 6 (met) Oral Hygiene (QC): 6 (met) Toileting Hygiene (QC): 6 (met) Shower/Bathe Self (QC): 6 (met) Upper Body Dressing (QC): 6 (met) Lower Body Dressing (QC): 6 (met) On/Off Footwear (QC): 6 (not met) Additional Goals: 1-Demonstrate ADL Tasks, 2-Verbalize Understanding, 3- ImproveStrength/Jamir 1=Demonstrate adherence to instructed precautions during ADL tasks. 2=Patient will verbalize/demonstrate understanding of assistive devices/modifications for ADL. 3=Patient will improve strength/tolerance for activity to enable patient to perform ADL's. OT Education/Plan Problem List/Assessment Assessment: Decreased Activ Tolerance, Impaired Self-Care Skills Discharge Recommendations Plan/Recommendations: Continue POC Treatment Plan/Plan of Care Patient would benefit from OT for education, treatment and training to promote independence in ADL's, mobility, safety and/or upper extremity function for ADL's. Plan of Care: ADL Retraining, Functional Mobility, Group Exercise/Act as Ind, UE Funct Exercise/Act, OTHER (edema management UEs) Treatment Duration: Jun 17, 2022 Frequency: At least 5 of 7 days/Wk (IRF) Estimated Hrs Per Day: 1.5 hours per day Agreement: Yes Rehab Potential: Fair Time Start Time: 10:00 Stop Time: 11:00 DATE: Jun 03, 2022 Total Time Billed (hr/min): 60 Billed Treatment Time 1 visit-ADL 4 (60 min) DEVORAH ELKINS Jun 03, 2022 10:20
--- NOTE | 2022-06-03 11:57 | Physical Therapy Daily Note ---
PT Daily Note-Current Subjective Agrees to Rx. No c/o except fatigue Pain Location: No Pain Reported Section J - Health Conditions 1. Rarely or not at all 2. Occasionally 3. Frequently 4. Almost constantly 8. Unable to answer Pain Effect on Sleep: 1 Pain Interference with Therapy: 1 Pain Interference w/Day-to-Day: 1 Mental Status Patient Orientation: Normal For Age Transfers SCALE: Activities may be completed with or without assistive devices. 0-Lxvxkrxhro-oukxssk completes the activity by him/herself with no assistance from a helper. 5-Set-up or Clean-up Assistance-helper sets up or cleans up; patient completes activity. [place] assists only prior to or following the activity. 4-Supervision or Touching Assistance-helper provides verbal cues and/or touching/steadying and/or contact guard assistance as patient completes activity. Assistance may be provided throughout the activity or intermittently. 3-Partial/Moderate Assistance-helper does LESS THAN HALF the effort. [place] lifts, holds or supports trunk or limbs, but provides less than half the effort. 2-Substantial/Maximal Assistance-helper does MORE THAN HALF the effort. [place] lifts or holds trunk or limbs and provides more than half the effort. 1-Cqdksfzyt-rzqntt does ALL the effort. Patient does none of the effort to complete the activity. Or, the assistance of 2 or more helpers is required for the patient to complete the activity. If activity was not attempted, code reason: 7-Patient Refused. 9-Not Applicable-not attempted and the patient did not perform the activity before the current illness, exacerbation or injury. 10-Not Attempted due to Environmental Limitations-(lack of equipment, weather restraints, etc.). 88-Not Attempted due to Medical Conditions or Safety Concerns. Roll Left & Right (QC): 6 Sit to Lying (QC): 6 Lying to Sitting/Side of Bed(Q: 6 Sit to Stand (QC): 6 Chair/Hgd-vw-Asebz Xfer(QC): 6 Toilet Transfer (QC): 6 Car Transfer (QC): 4 pt. required min assist RLE into car, indep out of car Weight Bearing Full Weight Bearing Full Weight Bearing Gait Training Does the Patient Walk?: Yes Walk 50 ft with 2 Turns(QC): 6 Walking 10ft/uneven surface-QC: 6 Gait Persons Needed: 1 Gait Assistive Device: FWW Stair Training Stair Training: Handrails/: 2 handrails #of Steps: 6 1 Step (curb) (QC): 4 4 Steps (QC): 4 12 Steps (QC): 88 Stairs: Pattern: Step to CGA and cuing about sequence, pt. c/o extreme sharp knee pain on right with stairs and thus only completed 6 Balance Picking up an Object (QC): 6 (with diesel service apprentice) Exercises Seated Therapy Exercises: Ankle pumps, Sit to stand, Long arc quads Seated Reps: 12 Treatments QC, gait, steps, TRFs, ex Assessment Current Status: Good Progress meets goals PT Short Term Goals Short Term Goals Time Frame: May 31, 2022 Sit to lyin (Gladys) Lying to sitting on side of be: 3 (Gladys) Sit to stand: 4 (SBA) Chair/nbf-hv-fkxdv transfer: 4 (SBA) Walk 10 feet: 4 (SBA) Walk 50 feet with two turns: 4 (SBA) PT Workforce Investment Act Career Manager Goals Workforce Investment Act Career Manager Goals PT Workforce Investment Act Career Manager Goals Time Frame: Jun 07, 2022 Roll Left & Right (QC): 6 Sit to Lying (QC): 4 (SBA) Lying-Sitting on Side/Bed(QC): 4 (SBA) Sit to Stand (QC): 6 Chair/Zps-nl-Rmkzt Xfer(QC): 6 Toilet Transfer (QC): 6 Car Transfer (QC): 4 (SBA) Does the Patient Walk: Yes Walk 10 feet (QC): 6 Walk 50ft with 2 Turns (QC): 6 Walk 150 ft (QC): 88 Walking 10ft on Uneven Surface: 6 1 Step (curb) (QC): 88 4 Steps (QC): 88 12 Steps (QC): 88 Picking up an Object (QC): 6 (using diesel service apprentice) Wheel 50 feet with 2 turns (QC: 9 Wheel 150 feet: 9 PT Plan Treatment/Plan Treatment Plan: Continue Plan of Care Treatment Plan: Bed Mobility, Education, Functional Activity Jamir, Functional Strength, Group Therapy, Gait, Safety, Therapeutic Exercise, Transfers Treatment Duration: Jun 07, 2022 Frequency: At least 5 of 7 days/Wk (IRF) Estimated Hrs Per Day: 1.5 hours per day Patient and/or Family Agrees t: Yes Safety Risks/Education Patient Education: Gait Training, Transfer Techniques, Steps, Correct Positioning, Safety Issues Teaching Recipient: Patient Teaching Methods: Demonstration, Discussion Response to Teaching: Verbalize Understanding, Return Demonstration, Reinforcement Needed Time Time In: 1100 Time Out: 1200 DATE: Jun 03, 2022 Total Billed Treatment Time: 60 Total Billed Treatment 1,GT16m,FA32m,EX12m GAYLE LO COSMETOLOGY TEACHER Jun 03, 2022 11:57
--- NOTE | 2022-06-03 12:17 | Progress Note - Cardiology ---
Cardiology SOAP Progress Note Subjective: Gen weakness No focal weakness No n/v/d No cp or palp or syncope Swelling as before Objective: I&O/Vital Signs 06/03/22 06/03/22 07:16 09:52 Temp 36.8 Pulse 68 Resp 18 B/P (MAP) 115/58 (77) Pulse Ox 98 O2 Delivery Room Air Room Air 06/03/22 00:00 Intake Total 720 ml Balance 720 ml Weight (Pounds): 230 Weight (Ounces): 0.0 Weight (Calculated Kilograms): 104.479857 Constitutional: AAO x 3, well-developed, well-nourished Respiratory: No accessory muscle use; other (fair, bilateral air entry, diminished at the bases) Cardiovascular: regular rate-rhythm, S1 and S2, systolic murmur (soft YASSINE at card base) Gastrointestional: No tender; soft; No guarding, No rebound; audible bowel sounds Extremities: other (chronic edema of the L arm; mod bilat LE swelling); No clubbing, No cyanosis Neurologic/Psychiatric: oriented x 3, other (moves all limbs equally) Skin: No rash on exposed areas, No ulcerations on exposed areas Results/Procedures: Labs Laboratory Tests 06/03/22 06:35: Sodium Level 141, Potassium Level 3.9, Chloride Level 105, Carbon Dioxide Level 23, Anion Gap 13, Blood Urea Nitrogen 39H, Creatinine 2.16H, Estimat Glomerular Filtration Rate 24, BUN/Creatinine Ratio 18, Glucose Level 79, Calcium Level 9.6 Microbiology 05/28/22 C. difficile GDH Antigen & Toxins - Final, Complete Laboratory Tests 06/02/22 06:10 06/03/22 06:35 A/P: Assessment: Episode of bradycardia w/o significant hypotension on 05-31-22 (after using bathroom) - symptomatic (no syncope) - no further episodes following reduction in BB Shock: septic and/or cardiogenic - mild troponin elevation due to type 2 NC due to hypotension - shock now resolved; BP has improved Hepatitis and jaundice of undetermined etiology - [place] [facility] [place] Coagulopathy - due to hepatic failure and due to apixaban - improved PAF - Apixaban held during marked hepatic impairment, now resumed Chronic HFrEF due to NICM (primarily managed by her assembler equipment Dr Woodward in [place], [place]) - Echocardiogram of 04-08-[address] Felton showed LVEF 10-15% with severe diffuse hypokinesis. LA and RA dilated. Mod to severe AoR. Mod MR. Mod to severe TR. PASP 50-55 mmHg - She reports she had a sleep study done that was "inconclusive" - she does not use CPAP or supplemental oxygen - managed by Dr. Kirk - AICD - implanted in September 2021 at [facility] [place] (single chamber device) - followed by Dr. Woodward - Echo on 05-17-22: LVEF 20-25%, global hypokinesis of LV, mild to mod MR, PASP 35-40 mmHg Acute renal failure - ATN due to hypotension vs hepatorenal syndrome - Cr improved improved today HLD - statin tx H/o DVT R leg - OAC with Eliquis H/O Breast Cancer - has had a mastectomy Gen weakness - d/t prolonged critical illness Chronic lymphedema of the SUSAN Plan: * BP appears under control * Bradycardia improved following reduction in BB * Not suitable for NIRALI-inhib/ARB due to renal failure (which still persists) * Renal function essentially stable with addition of diuretics * Continue to monitor labs CHAU POPE MD FACP FACC CCDS Jun 03, 2022 12:17
[2022-06-03] MEDS ORDERED: SODI44SP2 (12:29)
[2022-06-03] MEDS ORDERED: ALPR.25T PO (12:29)
[2022-06-03] MEDS ORDERED: APIX5TAB PO (12:29)
[2022-06-03] MEDS ORDERED: MECL-149 PO (12:29)
[2022-06-03] MEDS ORDERED: EMPA10TA PO (12:29)
[2022-06-03] MEDS ORDERED: AMLO-251 PO (12:29)
[2022-06-03] MEDS ORDERED: LACT1CAP7 PO (12:29)
[2022-06-03] MEDS ORDERED: DOXA4TAB2 PO (12:29)
[2022-06-03] MEDS ORDERED: LETR2.5T6 PO (12:29)
[2022-06-03] MEDS ORDERED: FURO40TA4 PO (12:29)
[2022-06-03] MEDS ORDERED: CYAN-41 PO (12:29)
[2022-06-03] MEDS ORDERED: CARV3.122 PO (12:29)
[2022-06-03] MEDS ORDERED: VENL150C98 PO (12:29)
--- NOTE | 2022-06-03 12:31 | D/C HH Face to Face Order ---
D/C Face to Face Orders Reconcile Patient Problems Problems Reviewed?: Yes Instructions for Patient [facility] [place] Instructions/FollowUp: PCP 1 week Physician to follow Patient: Reagan Discharge Diet for Home: No Restrictions Patient Problems: CKD CHF AF Patient Data-Allergies,Ht & Wt Patient Allergies: Coded Allergies: codeine (Verified Allergy, Mild, HALLUCINATIONS, 01/18/17) hydrocodone (Verified Allergy, NAUSEA AND VOMITING, 05/24/22) oxycodone (Verified Allergy, NAUSEA AND VOMITING, 05/24/22) Height (Feet): 5 Height (Inches): 8.00 Weight (Pounds): 230 Weight (Ounces): 0.0 Home Health Need/Face to Face Date of Face to Face: Jun 03, 2022 Clinical Findings: Generalized weakness and fatigue, Instability, Muscle weakness I have seen Pt pxxp-yo-aeab: Yes Discharged To: Home Diagnosis/Conditions: Debility Patient is Homebound due to: CognItive deficits, Tommie fall risk due to instabilty, Muscle weakness Homebound Status Due to the above stated illness, injury or surgical procedure (medical condition or diagnosis) and associated clinical findings, the patient is homebound because of his/her inability to leave home except with aid of a supportive device and/or person AND leaving the home requires a considerable and taxing effort or is medically contraindicated. Pt req the following assistanc: Walker Home Health Nursing Orders Home Health Services Order: Nursing Services, [place]-Evaluate & Treat, Physical Therapy-Evaluate & Treat Home Health Infusion Therapy Line Start Date: May 27, 2022 Certify Stmt I certify that this patient is under my care and that I, a nurse practitioner or a physician; a food and nutrition services assistant working with me, had a face to face encounter that - meets the physician face to face encounter requirements with this patient as dated. ANNEL ESTES DO Jun 03, 2022 12:31
--- NOTE | 2022-06-03 13:14 | Occupational Ther Daily Note ---
OT Current Status-Daily Note Subjective Pt alert, sitting in recliner. Pt's sister in room. Pt agrees to therapy. No c/o pain. Mental Status/Objective Patient Orientation: Person, Place, Time, Situation Attachments: IV ADL-Treatment Pt independent with toileting using BSC, FWW and grabbars. After therapy, pt left in care of PT. All needs met in room. Therapy Code Descriptions/Definitions Functional [place] Measure: 0=Not Assessed/NA 4=Minimal Assistance 1=Total Assistance 5=Supervision or Setup 2=Maximal Assistance 6=Modified [place] 3=Moderate Assistance 7=Complete IndependenceSCALE: Activities may be completed with or without assistive devices. 4-Blctyvjsfl-uwuttid completes the activity by him/herself with no assistance from a helper. 5-Set-up or Clean-up Assistance-helper sets up or cleans up; patient completes activity. [place] assists only prior to or following the activity. 4-Supervision or Touching Assistance-helper provides verbal cues and/or touching/steadying and/or contact guard assistance as patient completes activity. Assistance may be provided throughout the activity or intermittently. 3-Partial/Moderate Assistance-helper does LESS THAN HALF the effort. [place] lifts, holds or supports trunk or limbs, but provides less than half the effort. 2-Substantial/Maximal Assistance-helper does MORE THAN HALF the effort. [place] lifts or holds trunk or limbs and provides more than half the effort. 1-Chbiwbygn-ihhnqz does ALL the effort. Patient does none of the effort to complete the activity. Or, the assistance of 2 or more helpers is required for the patient to complete the activity. If activity was not attempted, code reason: 7-Patient Refused. 9-Not Applicable-not attempted and the patient did not perform the activity before the current illness, exacerbation or injury. 10-Not Attempted due to Environmental Limitations-(lack of equipment, weather restraints, etc.). 88-Not Attempted due to Medical Conditions or Safety Concerns. Toileting Hygiene (QC): 6 Toilet Transfer (QC): 6 OT Short Term Goals Short Term Goals Time Frame: Jun 08, 2022 Shower/bathe self: 5 Upper body dressin Lower body dressin Putting on/taking off footwear: 5 OT Prison Goals Prison Goals Time Frame: Jun 17, 2022 Acute change in mental status: 0 Inattention: 0 Disorganized thinkin Altered level of consciousness: 0 Eating (QC): 6 (met) Oral Hygiene (QC): 6 (met) Toileting Hygiene (QC): 6 (met) Shower/Bathe Self (QC): 6 (met) Upper Body Dressing (QC): 6 (met) Lower Body Dressing (QC): 6 (met) On/Off Footwear (QC): 6 (not met) Additional Goals: 1-Demonstrate ADL Tasks, 2-Verbalize Understanding, 3- ImproveStrength/Jamir 1=Demonstrate adherence to instructed precautions during ADL tasks. 2=Patient will verbalize/demonstrate understanding of assistive devices/modifications for ADL. 3=Patient will improve strength/tolerance for activity to enable patient to perform ADL's. OT Education/Plan Problem List/Assessment Assessment: Decreased Activ Tolerance, Impaired Self-Care Skills Discharge Recommendations Plan/Recommendations: Continue POC Treatment Plan/Plan of Care Patient would benefit from OT for education, treatment and training to promote independence in ADL's, mobility, safety and/or upper extremity function for ADL 's. Plan of Care: ADL Retraining, Functional Mobility, Group Exercise/Act as Ind, UE Funct Exercise/Act, OTHER (edema management UEs) Treatment Duration: Jun 17, 2022 Frequency: At least 5 of 7 days/Wk (IRF) Estimated Hrs Per Day: 1.5 hours per day Agreement: Yes Rehab Potential: Fair Time Start Time: 13:00 Stop Time: 13:30 DATE: Jun 03, 2022 Total Time Billed (hr/min): 30 Billed Treatment Time 1 visit-ADL 2 (30 min) DEVORAH ELKINS Jun 03, 2022 13:14
--- NOTE | 2022-06-03 13:53 | Physical Therapy Daily Note ---
PT Daily Note-Current Subjective Pt agrees on Rx but feels a little apprehensive about attempting to walk 150 ft all at one time. No c/o pain, minimal c/o dyspnea at end of Rx. Pain Location: No Pain Reported Section J - Health Conditions 1. Rarely or not at all 2. Occasionally 3. Frequently 4. Almost constantly 8. Unable to answer Pain Effect on Sleep: 1 Pain Interference with Therapy: 1 Pain Interference w/Day-to-Day: 1 Mental Status Patient Orientation: Normal For Age Transfers SCALE: Activities may be completed with or without assistive devices. 2-Jdguhqatxi-cgmgocu completes the activity by him/herself with no assistance from a helper. 5-Set-up or Clean-up Assistance-helper sets up or cleans up; patient completes activity. [place] assists only prior to or following the activity. 4-Supervision or Touching Assistance-helper provides verbal cues and/or touching/steadying and/or contact guard assistance as patient completes activity. Assistance may be provided throughout the activity or intermittently. 3-Partial/Moderate Assistance-helper does LESS THAN HALF the effort. [place] lifts, holds or supports trunk or limbs, but provides less than half the effort. 2-Substantial/Maximal Assistance-helper does MORE THAN HALF the effort. [place] lifts or holds trunk or limbs and provides more than half the effort. 4-Cycdafvsd-cbhgbv does ALL the effort. Patient does none of the effort to complete the activity. Or, the assistance of 2 or more helpers is required for the patient to complete the activity. If activity was not attempted, code reason: 7-Patient Refused. 9-Not Applicable-not attempted and the patient did not perform the activity before the current illness, exacerbation or injury. 10-Not Attempted due to Environmental Limitations-(lack of equipment, weather restraints, etc.). 88-Not Attempted due to Medical Conditions or Safety Concerns. all sit to stands chair and toilet indep Weight Bearing Full Weight Bearing Full Weight Bearing Gait Training Does the Patient Walk?: Yes Walk 150 ft (QC): 6 Gait Persons Needed: 1 Gait Assistive Device: FWW good velocity, paced well, good pattern, moderate wt bearing on FWW , equal step length 150 ft Exercises Seated Therapy Exercises: Ankle pumps, Sit to stand, Long arc quads, Hip flexion Seated Reps: 8 Treatments gait, TRFs Assessment Current Status: Good Progress meeting goals PT Short Term Goals Short Term Goals Time Frame: May 31, 2022 Sit to lyin (Gladys) Lying to sitting on side of be: 3 (Gladys) Sit to stand: 4 (SBA) Chair/oxf-es-glwyv transfer: 4 (SBA) Walk 10 feet: 4 (SBA) Walk 50 feet with two turns: 4 (SBA) PT Screener Operator Goals Mcfp Goals PT Mcfp Goals Time Frame: Jun 07, 2022 Roll Left & Right (QC): 6 Sit to Lying (QC): 4 (SBA) Lying-Sitting on Side/Bed(QC): 4 (SBA) Sit to Stand (QC): 6 Chair/Lxe-qp-Xzpzx Xfer(QC): 6 Toilet Transfer (QC): 6 Car Transfer (QC): 4 (SBA) Does the Patient Walk: Yes Walk 10 feet (QC): 6 Walk 50ft with 2 Turns (QC): 6 Walk 150 ft (QC): 88 Walking 10ft on Uneven Surface: 6 1 Step (curb) (QC): 88 4 Steps (QC): 88 12 Steps (QC): 88 Picking up an Object (QC): 6 (using parks and recreation worker) Wheel 50 feet with 2 turns (QC: 9 Wheel 150 feet: 9 PT Plan Treatment/Plan Treatment Plan: Continue Plan of Care Treatment Plan: Bed Mobility, Education, Functional Activity Jamir, Functional Strength, Group Therapy, Gait, Safety, Therapeutic Exercise, Transfers Treatment Duration: Jun 07, 2022 Frequency: At least 5 of 7 days/Wk (IRF) Estimated Hrs Per Day: 1.5 hours per day Patient and/or Family Agrees t: Yes Safety Risks/Education Patient Education: Gait Training, Transfer Techniques, Safety Issues Time Time In: 1330 Time Out: 1400 DATE: Jun 03, 2022 Total Billed Treatment Time: 30 Total Billed Treatment 1,GT20m,FA10m GAYLE LO MANUGRAPHER Jun 03, 2022 13:53
[2022-06-03 20:00] VITALS: BP 151/70
[2022-06-03] MEDS: MECLIZINE 25 MG (ANTIVERT) TAB PO SCH (21:30)
--- NOTE | 2022-06-04 06:36 | Discharge Summary ---
Diagnosis/Chief Complaint Date of Admission May 24, 2022 at 09:15 Date of Discharge Discharge Date: Jun 04, 2022 Discharge Diagnosis Assessment: Cardiogenic shock Debility LUIS Liver shock AF PAF s/p RVR Liver shock s/p E coli severe sepsis UTI Hypoxia Volume overload HTN OOC Bradycardia Pacemaker Epistaxis resolved Anemia hgb 8.8 Near syncope pulse 40 on 06/01/22 Plan: Monitor creat Monitor CHF Monitor O2 Completed abx 05/25/2022: Avelina Haddad for I/O's Appreciate Dr Lundberg 05/26/2022: Diuresis Monitor closely 05/27/2022: Ambulate Monitor closely 05/28/2022: Discontinue catheter tomorrow 05/29/2022: Monitor weight Monitor creatinine Haddad discontinued today 05/30/2022: Monitor creat and hgb 05/31/2022: Edema management 06/01/2022: Monitor closely 06/02/2022: Monitor creat DC 06/03/2022: DC tomorrow (1) Cardiogenic shock Status: Resolved (2) Septic shock Status: Resolved (3) Splenic cyst Status: Acute (4) Hypercalcemia Status: Acute (5) ATN (acute tubular necrosis) Status: Acute (6) Gilbert syndrome Status: Chronic (7) Lactic acidosis Status: Resolved Resolution Date/Time: 05/19/22 @ 19:07 (8) E. coli UTI Status: Acute (9) Shock liver Status: Acute (10) Unconjugated hyperbilirubinemia Status: Acute (11) Acute on chronic HFrEF (heart failure with reduced ejection fraction) Status: Acute (12) NSTEMI (non-ST elevation myocardial infarction) Status: Acute (13) Paroxysmal atrial fibrillation with RVR (14) Vomiting in adult Status: Acute Discharge Summary Discharge Physical Examination Allergies: Coded Allergies: codeine (Verified Allergy, Mild, HALLUCINATIONS, 01/18/17) hydrocodone (Verified Allergy, NAUSEA AND VOMITING, 05/24/22) oxycodone (Verified Allergy, NAUSEA AND VOMITING, 05/24/22) Vitals & I&Os Vital Signs Date Time Temp Pulse Resp B/P (MAP) Pulse Ox O2 Delivery O2 Flow Rate FiO2 06/04/22 11:00 37.1 96 18 129/73 98 Room Air General Appearance: Alert, Oriented X3, Cooperative Respiratory: Clear to Auscultation Cardiovascular: Regular Rate Psych/Mental Status: Mental Status NL Hospital Course Was the Problem List Reviewed?: Yes Hospital course: Patient had a lengthy hospital course. Cardiology was consulted and monitored cardiac function. Chronic kidney disease with acute kidney injury required daily labs. She remained stable. Midline placed with good results. She was able to participate in therapy. Reviewed meds and labs. Patient was set for discharge with home health. Labs (last 24 hrs) Laboratory Tests 05/25/22 05:35: White Blood Count 6.4, Red Blood Count 3.43L, Hemoglobin 9.7L, Hematocrit 30L, Mean Corpuscular Volume 88, Mean Corpuscular Hemoglobin 28, Mean Corpuscular Hemoglobin Concent 32, Red Cell Distribution Width 18.1H, Platelet Count 135, Mean Platelet Volume 10.4, Immature Granulocyte % (Auto) 1, Neutrophils (%) (Auto) 67, Lymphocytes (%) (Auto) 14, Monocytes (%) (Auto) 13H, Eosinophils (%) (Auto) 5, Basophils (%) (Auto) 1, Neutrophils # (Auto) 4.3, Lymphocytes # (Auto) 0.9L, Monocytes # (Auto) 0.8, Eosinophils # (Auto) 0.3, Basophils # (Auto) 0.1, Immature Granulocyte # (Auto) 0.1, Sodium Level 140, Potassium Level 3.9, Chloride Level 104, Carbon Dioxide Level 25, Anion Gap 11, Blood Urea Nitrogen 44H, Creatinine 3.04H, Estimat Glomerular Filtration Rate 16, BUN/Creatinine Ratio 14, Glucose Level 87, Calcium Level 10.1, Corrected Calcium 11.1H, Total Bilirubin 2.3H, Aspartate Amino Transf (AST/SGOT) 45H, Alanine Aminotransferase (ALT/SGPT) 466H, Alkaline Phosphatase 90, Total Protein 5.3L, Albumin 2.8L 05/26/22 09:00: Sodium Level 139, Potassium Level 4.2, Chloride Level 104, Carbon Dioxide Level 25, Anion Gap 10, Blood Urea Nitrogen 40H, Creatinine 2.84H, Estimat Glomerular Filtration Rate 17, BUN/Creatinine Ratio 14, Glucose Level 120H, Calcium Level 10.0, Corrected Calcium 10.7H, Total Bilirubin 2.2H, Aspartate Amino Transf (AST/SGOT) 40H, Alanine Aminotransferase (ALT/SGPT) 366H, Alkaline Phosphatase 99, Total Protein 5.9L, Albumin 3.1L 05/27/22 08:55: Sodium Level 140, Potassium Level 4.0, Chloride Level 106, Carbon Dioxide Level 25, Anion Gap 9, Blood Urea Nitrogen 40H, Creatinine 2.64H, Estimat Glomerular Filtration Rate 19, BUN/Creatinine Ratio 15, Glucose Level 123H, Calcium Level 9.8 05/28/22 05:25: Sodium Level 139, Potassium Level 4.1, Chloride Level 106, Carbon Dioxide Level 24, Anion Gap 9, Blood Urea Nitrogen 38H, Creatinine 2.37H, Estimat Glomerular Filtration Rate 22, BUN/Creatinine Ratio 16, Glucose Level 81, Calcium Level 9.6 05/29/22 05:50: Sodium Level 140, Potassium Level 4.1, Chloride Level 107, Carbon Dioxide Level 23, Anion Gap 10, Blood Urea Nitrogen 40H, Creatinine 2.35H, Estimat Glomerular Filtration Rate 22, BUN/Creatinine Ratio 17, Glucose Level 76, Calcium Level 9.5 05/30/22 06:05: Sodium Level 140, Potassium Level 4.1, Chloride Level 106, Carbon Dioxide Level 23, Anion Gap 11, Blood Urea Nitrogen 41H, Creatinine 2.49H, Estimat Glomerular Filtration Rate 20, BUN/Creatinine Ratio 16, Glucose Level 74, Calcium Level 9.8, White Blood Count 7.0, Red Blood Count 3.08L, Hemoglobin 8.8L, Hematocrit 28L, Mean Corpuscular Volume 89, Mean Corpuscular Hemoglobin 29, Mean Corpuscular Hemoglobin Concent 32, Red Cell Distribution Width 17.9H, Platelet Count 148, Mean Platelet Volume 10.9, Immature Granulocyte % (Auto) 1, Neutrophils (%) (Auto) 69, Lymphocytes (%) (Auto) 14, Monocytes (%) (Auto) 11, Eosinophils (%) (Auto) 4, Basophils (%) (Auto) 1, Neutrophils # (Auto) 4.8, Ly mphocytes # (Auto) 1.0, Monocytes # (Auto) 0.8, Eosinophils # (Auto) 0.3, Basophils # (Auto) 0.1, Immature Granulocyte # (Auto) 0.0, Corrected Calcium 10.6H, Total Bilirubin 1.9H, Aspartate Amino Transf (AST/SGOT) 23, Alanine Aminotransferase (ALT/SGPT) 127H, Alkaline Phosphatase 100, Total Protein 5.9L, Albumin 3.0L 05/31/22 06:25: Sodium Level 141, Potassium Level 4.2, Chloride Level 107, Carbon Dioxide Level 23, Anion Gap 11, Blood Urea Nitrogen 43H, Creatinine 2.45H, Estimat Glomerular Filtration Rate 21, BUN/Creatinine Ratio 18, Glucose Level 81, Calcium Level 9.7 06/01/22 06:35: Sodium Level 142, Potassium Level 4.1, Chloride Level 107, Carbon Dioxide Level 24, Anion Gap 11, Blood Urea Nitrogen 45H, Creatinine 2.51H, Estimat Glomerular Filtration Rate 20, BUN/Creatinine Ratio 18, Glucose Level 74, Calcium Level 9.8, White Blood Count 6.3, Red Blood Count 3.00L, Hemoglobin 8.5L, Hematocrit 27L, Mean Corpuscular Volume 89, Mean Corpuscular Hemoglobin 28, Mean Corpuscular Hemoglobin Concent 32, Red Cell Distribution Width 17.6H, Platelet Count 149, Mean Platelet Volume 11.3, Percent Immature Platelet Fraction 4.2 06/01/22 17:30: Stool Occult Blood Immunoassay POSITIVEH 06/02/22 06:10: Sodium Level 142, Potassium Level 4.1, Chloride Level 107, Carbon Dioxide Level 25, Anion Gap 10, Blood Urea Nitrogen 43H, Creatinine 2.33H, Estimat Glomerular Filtration Rate 22, BUN/Creatinine Ratio 18, Glucose Level 79, Calcium Level 9.7 06/03/22 06:35: Sodium Level 141, Potassium Level 3.9, Chloride Level 105, Carbon Dioxide Level 23, Anion Gap 13, Blood Urea Nitrogen 39H, Creatinine 2.16H, Estimat Glomerular Filtration Rate 24, BUN/Creatinine Ratio 18, Glucose Level 79, Calcium Level 9.6 06/04/22 06:45: Sodium Level 141, Potassium Level 3.8, Chloride Level 105, Carbon Dioxide Level 25, Anion Gap 11, Blood Urea Nitrogen 35H, Creatinine 2.06H, Estimat Glomerular Filtration Rate 26, BUN/Creatinine Ratio 17, Glucose Level 79, Calcium Level 9.8 Microbiology 05/28/22 C. difficile [facility]DH Antigen & Toxins - Final, Complete Pending Labs Microbiology Date/Time Source Procedure Growth Status 05/28/22 08:30 Stool C. difficile GDH Antigen & Toxins - Final Complete Laboratory Tests 05/25/22 05:35: White Blood Count 6.4, Red Blood Count 3.43, Hemoglobin 9.7, Hematocrit 30, Mean Corpuscular Volume 88, Mean Corpuscular Hemoglobin 28, Mean Corpuscular He moglobin Concent 32, Red Cell Distribution Width 18.1, Platelet Count 135, Mean Platelet Volume 10.4, Immature Granulocyte % (Auto) 1, Neutrophils (%) (Auto) 67, Lymphocytes (%) (Auto) 14, Monocytes (%) (Auto) 13, Eosinophils (%) (Auto) 5, Basophils (%) (Auto) 1, Neutrophils # (Auto) 4.3, Lymphocytes # (Auto) 0.9, Monocytes # (Auto) 0.8, Eosinophils # (Auto) 0.3, Basophils # (Auto) 0.1, Immature Granulocyte # (Auto) 0.1, Sodium Level 140, Potassium Level 3.9, Chloride Level 104, Carbon Dioxide Level 25, Anion Gap 11, Blood Urea Nitrogen 44, Creatinine 3.04, Estimat Glomerular Filtration Rate 16, BUN/Creatinine Ratio 14, Glucose Level 87, Calcium Level 10.1, Corrected Calcium 11.1, Total Bilirubin 2.3, Aspartate Amino Transf (AST/SGOT) 45, Alanine Aminotransferase (ALT/SGPT) 466, Alkaline Phosphatase 90, Total Protein 5.3, Albumin 2.8 05/26/22 09:00: Sodium Level 139, Potassium Level 4.2, Chloride Level 104, Carbon Dioxide Level 25, Anion Gap 10, Blood Urea Nitrogen 40, Creatinine 2.84, Estimat Glomerular Filtration Rate 17, BUN/Creatinine Ratio 14, Glucose Level 120, Calcium Level 10.0, Corrected Calcium 10.7, Total Bilirubin 2.2, Aspartate Amino Transf (AST/SGOT) 40, Alanine Aminotransferase (ALT/SGPT) 366, Alkaline Phosphatase 99, Total Protein 5.9, Albumin 3.1 05/27/22 08:55: Sodium Level 140, Potassium Level 4.0, Chloride Level 106, Carbon Dioxide Level 25, Anion Gap 9, Blood Urea Nitrogen 40, Creatinine 2.64, Estimat Glomerular Filtration Rate 19, BUN/Creatinine Ratio 15, Glucose Level 123, Calcium Level 9.8 05/28/22 05:25: Sodium Level 139, Potassium Level 4.1, Chloride Level 106, Carbon Dioxide Level 24, Anion Gap 9, Blood Urea Nitrogen 38, Creatinine 2.37, Estimat Glomerular Filtration Rate 22, BUN/Creatinine Ratio 16, Glucose Level 81, Calcium Level 9.6 05/29/22 05:50: Sodium Level 140, Potassium Level 4.1, Chloride Level 107, Carbon Dioxide Level 23, Anion Gap 10, Blood Urea Nitrogen 40, Creatinine 2.35, Estimat Glomerular Filtration Rate 22, BUN/Creatinine Ratio 17, Glucose Level 76, Calcium Level 9.5 05/30/22 06:05: Sodium Level 140, Potassium Level 4.1, Chloride Level 106, Carbon Dioxide Level 23, Anion Gap 11, Blood Urea Nitrogen 41, Creatinine 2.49, Estimat Glomerular Filtration Rate 20, BUN/Creatinine Ratio 16, Glucose Level 74, Calcium Level 9.8, White Blood Count 7.0, Red Blood Count 3.08, Hemoglobin 8.8, Hematocrit 28, Mean Corpuscular Volume 89, Mean Corpuscular Hemoglobin 29, Mean Corpuscular Hemoglobin Concent 32, Red Cell Distribution Width 17.9, Platelet Count 148, Mean Platelet Volume 10.9, Immature Granulocyte % (Auto) 1, Neutrophils (%) (Auto) 69, Lymphocytes (%) (Auto) 14, Monocytes (%) (Auto) 11, Eosinophils (%) (Auto) 4, Basophils (%) (Auto) 1, Neutrophils # (Auto) 4.8, Lymphocytes # (Auto) 1.0, Monocytes # (Auto) 0.8, Eosinophils # (Auto) 0.3, Basophils # (Auto) 0.1, Immature Granulocyte # (Auto) 0.0, Corrected Calcium 10.6, Total Bilirubin 1.9, Aspartate Amino Transf (AST/SGOT) 23, Alanine Aminotransferase (ALT/SGPT) 127, Alkaline Phosphatase 100, Total Protein 5.9, Albumin 3.0 05/31/22 06:25: Sodium Level 141, Potassium Level 4.2, Chloride Level 107, Carbon Dioxide Level 23, Anion Gap 11, Blood Urea Nitrogen 43, Creatinine 2.45, Estimat Glomerular Filtration Rate 21, BUN/Creatinine Ratio 18, Glucose Level 81, Calcium Level 9.7 06/01/22 06:35: Sodium Level 142, Potassium Level 4.1, Chloride Level 107, Carbon Dioxide Level 24, Anion Gap 11, Blood Urea Nitrogen 45, Creatinine 2.51, Estimat Glomerular Filtration Rate 20, BUN/Creatinine Ratio 18, Glucose Level 74, Calcium Level 9.8, White Blood Count 6.3, Red Blood Count 3.00, Hemoglobin 8.5, Hematocrit 27, Mean Corpuscular Volume 89, Mean Corpuscular Hemoglobin 28, Mean Corpuscular Hemoglobin Concent 32, Red Cell Distribution Width 17.6, Platelet Count 149, Mean Platelet Volume 11.3, Percent Immature Platelet Fraction 4.2 06/01/22 17:30: Stool Occult Blood Immunoassay POSITIVE 06/02/22 06:10: Sodium Level 142, Potassium Level 4.1, Chloride Level 107, Carbon Dioxide Level 25, Anion Gap 10, Blood Urea Nitrogen 43, Creatinine 2.33, Estimat Glomerular Filtration Rate 22, BUN/Creatinine Ratio 18, Glucose Level 79, Calcium Level 9.7 06/03/22 06:35: Sodium Level 141, Potassium Level 3.9, Chloride Level 105, Carbon Dioxide Level 23, Anion Gap 13, Blood Urea Nitrogen 39, Creatinine 2.16, Estimat Glomerular Filtration Rate 24, BUN/Creatinine Ratio 18, Glucose Level 79, Calcium Level 9.6 06/04/22 06:45: Sodium Level 141, Potassium Level 3.8, Chloride Level 105, Carbon Dioxide Level 25, Anion Gap 11, Blood Urea Nitrogen 35, Creatinine 2.06, Estimat Glomerular Filtration Rate 26, BUN/Creatinine Ratio 17, Glucose Level 79, Calcium Level 9.8 Discharge Home Medications: Active Scripts Active Acidophilus-Pectin Capsule (Lactobacillus Acidophilus/Pect) 75 Million Cell-100 Mg Capsule 2 Each PO TIDWM [place] (Sodium Chloride) 0.65 % [place] 0 Ml NA QID QID Xanax Tablet (Alprazolam) 0.25 Mg Tab 0.25 Mg PO Q8H PRN Amlodipine Besylate 10 Mg Tablet 10 Mg PO DAILY Carvedilol 3.125 Mg Tablet 3.125 Mg PO BID Doxazosin Mesylate 4 Mg Tablet 4 Mg PO BID Furosemide 40 Mg Tablet 40 Mg PO DAILY Jardiance (Empagliflozin) 10 Mg Tablet 10 Mg PO DAILY Vitamin B-12 (Cyanocobalamin (Vitamin B-12)) 1,000 Mcg Tablet 1,000 Mcg PO DAILY Meclizine HCl 25 Mg Tablet 25 Mg PO DAILY Eliquis (Apixaban) 5 Mg Tablet 5 Mg PO BID Venlafaxine HCl ER (Venlafaxine HCl) 150 Mg Cap.er.24h 150 Mg PO DAILY Letrozole 2.5 Mg Tablet 2.5 Mg PO DAILY Reported Fish Oil 1,200 mg Fish Oil (Fish Oil/Dha/Epa) 1,200 Mg-144 Mg-216 Mg Capsule 1 Each PO DAILY Instructions to patient/family Please see electronic discharge instructions given to patient. Diagnosis/Problems Diagnosis/Problems (1) Cardiogenic shock Status: Resolved (2) Septic shock Status: Resolved (3) Splenic cyst Status: Acute (4) Hypercalcemia Status: Acute (5) ATN (acute tubular necrosis) Status: Acute (6) Gilbert syndrome Status: Chronic (7) Lactic acidosis Status: Resolved Resolution Date/Time: 05/19/22 @ 19:07 (8) E. coli UTI Status: Acute (9) Shock liver Status: Acute (10) Unconjugated hyperbilirubinemia Status: Acute (11) Acute on chronic HFrEF (heart failure with reduced ejection fraction) Status: Acute (12) NSTEMI (non-ST elevation myocardial infarction) Status: Acute (13) Paroxysmal atrial fibrillation with RVR (14) Vomiting in adult Status: Acute ANNEL ESTES DO Jun 04, 2022 06:35
[2022-06-04 07:15] LABS: POTASSIUM 3.8 MMOL/L (3.6-5.0)
[2022-06-04 07:16] LABS: CALCIUM 9.8 MG/DL (8.5-10.1)
[2022-06-04 07:20] LABS: CREATININE SERUM 2.06 MG/DL (0.60-1.30)
[2022-06-04 07:30] VITALS: BP 129/73
[2022-06-04] MEDS: KCL 10 MEQ TAB (MICRO K) PO SCH (07:36)
[2022-06-04] MEDS: VENlafaxine XR 75 MG (EFFEXOR XR) CAP PO SCH (07:37)
[2022-06-04] MEDS: CATHETER FLUSH 10 ML SYR IVP SCH (07:39)
[2022-06-04] MEDS: LETROZOLE 2.5 MG (FEMARA) TAB PO SCH (08:08)
[2022-06-04] MEDS: APIXABAN 5 MG (ELIQUIS) TABLET PO SCH (08:08)
[2022-06-04] MEDS: LACTOBACILLUS ACIDOPHILUS (PROBIOTIC) CAPSULE PO SCH (08:08)
[2022-06-04] MEDS: FUROSEMIDE 40 MG (LASIX) TAB PO SCH (08:08)
[2022-06-04] MEDS: doxAzosin 4 MG (CARDURA) TAB PO SCH (08:08)
[2022-06-04] MEDS: EMPAGLIFLOZIN 10 MG TABLET (JARDIANCE) PO SCH (08:08)
[2022-06-04] MEDS: CYANOCOBALAMIN 1,000 MCG (VITAMIN B-12) TABLET PO SCH (08:08)
[2022-06-04] MEDS: amLODIPine 10 MG (NORVASC) TAB PO SCH (08:08)
[2022-06-04] MEDS: DOCUSATE SODIUM 100 MG (COLACE) CAP PO SCH (08:13)
[2022-06-04] MEDS: SALINE NASAL SPRAY (OCEAN) 45 ML BTL SCH (08:13)
[2022-06-04] MEDS: polyethylene glycoL POWDER 17 GM (MIRALAX) PACK PO SCH (08:14)
[2022-06-04] MEDS: SENNOSIDES 8.6 MG (SENOKOT) TAB PO SCH (08:14)
[2022-06-04 11:00] VITALS: BP 129/73
--- NOTE | 2022-06-06 12:56 | Therapy Team Discharge Summary ---
Therapy Discharge Summary Discharge Recommendations Date of Discharge Jun 04, 2022 at 11:30 Physical Therapy Patient came to rehab post cardiogenic shock. Upon evaluation patient performs rolling with SBA, supine <-> sit mod assist, sit <-> stand and transfers CGA, car transfer min assist, ambulate 20' with a rolling walker with CGA (including 10' over an uneven surface), propelled a manual WC 20' with SBA, and picked up an object from the floor using a outbound sales executive with CGA. Patient has been performing bed mobility and transfer training, balance and endurance training, functional strengthening, stair training, gait training, and education. Patient has made fair progress but has not met her jail goal for car transfer. Now, patient performs rolling and supine <-> sit with independence, sit <-> stand and transfers with independence, car transfer min assist, ambulates at least 50' with a rolling walker with independence (including 50' with at least 2 turns of 90 degrees and 10' over an uneven surface), can go up and down 6 steps using 2 handrails with CGA, and can pick pulling machine operator an object from the floor using a outbound sales executive with independence. Patient has been discharged from this facility and will be discharged from PT at this time. Roll Left to Right (QC): 6 Sit to Lying (QC): 6 Lying to Sitting/Side of Bed(Q: 6 Sit to Stand (QC): 6 Chair/Pjp-iy-Lujnb Xfer(QC): 6 Toilet Transfer (QC): 6 Car Transfer (QC): 4 Does the Patient Walk: Yes Walk 10 feet (QC): 6 Walk 50 ft with 2 Turns(QC): 6 Walk 150 ft (QC): 6 Walking 10ft on uneven surface: 6 Distance: 20'x2 Gait Assistive Device: FWW Does the Pt Use a Wheelchair: Yes Wheelchair Distance: 20' Wheel 50 ft with 2 turns (QC): 88 Wheel 150 ft (QC): 88 Type of Wheelchair: Manual #of Steps: 6 1 Step (curb) (QC): 4 4 Steps (QC): 4 12 Steps (QC): 88 Balance Sitting Static: Normal Balance Sitting Dynamic: Normal Balance-Standing Static: Fair Picking up an Object (QC): 6 (with outbound sales executive) Occupational Therapy Decreased Activ Tolerance, Impaired Self-Care Skills Eating (QC): 6 Oral Hygiene (QC): 6 Shower/Bathe Self (QC): 6 Upper Body Dressing (QC): 6 Lower Body Dressing (QC): 6 On/Off Footwear (QC): 3 Toileting Hygiene (QC): 6 PT Fdc Goals Fdc Goals PT County Supervisor Goals Time Frame: Jun 07, 2022 Roll Left to Right (QC): 6 Sit to Lying (QC): 4 (SBA) Lying-Sitting on Side/Bed(QC): 4 (SBA) Sit to Stand (QC): 6 Chair/Wuj-lp-Dzfbh Xfer(QC): 6 Toilet/Commode Transfer (QC): 6 Car Transfer (QC): 4 (SBA) Does the Patient Walk: Yes Walk 10 feet (QC): 6 Walk 10ft-Uneven Surface(QC): 6 Walk 50ft with 2 Turns (QC): 6 Walk 150 ft (QC): 88 Wheel 50 feet with 2 turns (QC: 9 Wheel 150 feet: 9 1 Step (curb) (QC): 88 4 Steps (QC): 88 12 Steps (QC): 88 Picking up an Object (QC): 6 (using outbound sales executive) OT Fdc Goals Fdc Goals Time Frame: Jun 17, 2022 Acute change in mental status: 0 Inattention: 0 Disorganized thinkin Altered level of consciousness: 0 Eating (QC): 6 (met) Oral Hygiene (QC): 6 (met) Toileting Hygiene (QC): 6 (met) Shower/Bathe Self (QC): 6 (met) Upper Body Dressing (QC): 6 (met) Lower Body Dressing (QC): 6 (met) On/Off Footwear (QC): 6 (not met) Additional Goals: 1-Demonstrate ADL Tasks, 2-Verbalize Understanding, 3- ImproveStrength/Jamir 1=Demonstrate adherence to instructed precautions during ADL tasks. 2=Patient will verbalize/demonstrate understanding of assistive devices/modifications for ADL. 3=Patient will improve strength/tolerance for activity to enable patient to perform ADL's. ZOFIA RAMIREZ PT Jun 06, 2022 12:56
--- NOTE | 2022-06-06 14:31 | Therapy Team Discharge Summary ---
Therapy Discharge Summary Discharge Recommendations Date of Discharge Jun 04, 2022 at 11:30 Physical Therapy Roll Left to Right (QC): 6 Sit to Lying (QC): 6 Lying to Sitting/Side of Bed(Q: 6 Sit to Stand (QC): 6 Chair/Sqb-mi-Liauo Xfer(QC): 6 Toilet Transfer (QC): 6 Car Transfer (QC): 4 Does the Patient Walk: Yes Walk 10 feet (QC): 6 Walk 50 ft with 2 Turns(QC): 6 Walk 150 ft (QC): 6 Walking 10ft on uneven surface: 6 Distance: 20'x2 Gait Assistive Device: FWW Does the Pt Use a Wheelchair: Yes Wheelchair Distance: 20' Wheel 50 ft with 2 turns (QC): 88 Wheel 150 ft (QC): 88 Type of Wheelchair: Manual #of Steps: 6 1 Step (curb) (QC): 4 4 Steps (QC): 4 12 Steps (QC): 88 Balance Sitting Static: Normal Balance Sitting Dynamic: Normal Balance-Standing Static: Fair Picking up an Object (QC): 6 (with stocking inspector) Occupational Therapy Pt admitted to ARU with cardiogenic shock. At [facility], pt was independent with ADLS and functional mobility using FWW. Upon initial evaluation, pt required set up assistance with eating and oral care, SBA showering and UE dressing, min A LE dressing and footwear, and CGA toileting. OT txs focused on increasing BUE Strength and activity tolerance, and increasing safety and independence with ADLS and functional mobility. Pt made good progress towards goals, attaining all LTGs except footwear. Pt discharged from facility, d/c from OT. Decreased Activ Tolerance, Impaired Self-Care Skills Eating (QC): 6 Oral Hygiene (QC): 6 Shower/Bathe Self (QC): 6 Upper Body Dressing (QC): 6 Lower Body Dressing (QC): 6 On/Off Footwear (QC): 3 Toileting Hygiene (QC): 6 PT Art Model Goals Penitentiary Goals PT Penitentiary Goals Time Frame: Jun 07, 2022 Roll Left to Right (QC): 6 Sit to Lying (QC): 4 (SBA) Lying-Sitting on Side/Bed(QC): 4 (SBA) Sit to Stand (QC): 6 Chair/Mly-vn-Baurm Xfer(QC): 6 Toilet/Commode Transfer (QC): 6 Car Transfer (QC): 4 (SBA) Does the Patient Walk: Yes Walk 10 feet (QC): 6 Walk 10ft-Uneven Surface(QC): 6 Walk 50ft with 2 Turns (QC): 6 Walk 150 ft (QC): 88 Wheel 50 feet with 2 turns (QC: 9 Wheel 150 feet: 9 1 Step (curb) (QC): 88 4 Steps (QC): 88 12 Steps (QC): 88 Picking up an Object (QC): 6 (using stocking inspector) OT Penitentiary Goals Penitentiary Goals Time Frame: Jun 17, 2022 Acute change in mental status: 0 Inattention: 0 Disorganized thinkin Altered level of consciousness: 0 Eating (QC): 6 (met) Oral Hygiene (QC): 6 (met) Toileting Hygiene (QC): 6 (met) Shower/Bathe Self (QC): 6 (met) Upper Body Dressing (QC): 6 (met) Lower Body Dressing (QC): 6 (met) On/Off Footwear (QC): 6 (not met) Additional Goals: 1-Demonstrate ADL Tasks, 2-Verbalize Understanding, 3- ImproveStrength/Jamir 1=Demonstrate adherence to instructed precautions during ADL tasks. 2=Patient will verbalize/demonstrate understanding of assistive devices/mo difications for ADL. 3=Patient will improve strength/tolerance for activity to enable patient to perform ADL's. SAMI CANTRELL OT Jun 06, 2022 14:31
== END 2022-06-04 11:30 | disposition home health service (06) | DRG 280 ==
LOC: UNDODISIN 06-04 11:30
PROVIDERS: ADMIT Internal Medicine; ATTEND Internal Medicine
DX: I48.0 Paroxysmal atrial fibrillation (principal); I21.A1 Myocardial infarction type 2; K72.00 Acute and subacute hepatic failure without coma; R57.0 Cardiogenic shock; N17.0 Acute kidney failure with tubular necrosis; N39.0 Urinary tract infection, site not specified; I50.22 Chronic systolic (congestive) heart failure; I13.0 Hypertensive heart and chronic kidney disease with heart failure and stage 1 through stage 4 chronic kidney disease, or unspecified chronic kidney disease; I48.92 Unspecified atrial flutter; Z66 Do not resuscitate; E78.5 Hyperlipidemia, unspecified; I97.2 Postmastectomy lymphedema syndrome; E83.52 Hypercalcemia; D73.4 Cyst of spleen; I42.9 Cardiomyopathy, unspecified; M17.11 Unilateral primary osteoarthritis, right knee; R00.1 Bradycardia, unspecified; R32 Unspecified urinary incontinence; R04.0 Epistaxis; N18.9 Chronic kidney disease, unspecified; R55 Syncope and collapse; H54.3 Unqualified visual loss, both eyes; B96.20 Unspecified Escherichia coli [E. coli] as the cause of diseases classified elsewhere; Z79.01 Long term (current) use of anticoagulants; Z85.3 Personal history of malignant neoplasm of breast; Z90.12 Acquired absence of left breast and nipple; Z79.84 Long term (current) use of oral hypoglycemic drugs; Z88.5 Allergy status to narcotic agent
CPT/HCPCS: 36410; 36415; 76937; 80048; 80053; 82274; 85025; 85027; 87324; 87449; 93005

== ENCOUNTER 2022-06-10 22:54 | Inpatient (IN) | payer MEDICARE ==
[~2022-06-10] VITALS: Ht 172 cm; Wt 104.6 kg
[~2022-06-10 22:54] MED LIST changes: +ALPR.25T PO; +AMLO-251 PO; +CARV3.122 PO; +DOXA4TAB2 PO; +LACT1CAP7 PO; +SODI44SP2
[2022-06-10 23:15] LABS: BASOPHILS # (AUTO) 0.1 10^3/uL (0.0-0.1); BASOPHILS % (AUTO) 1 % (0-10); EOSINOPHILS # (AUTO) 0.2 10^3/uL (0.0-0.3); EOSINOPHILS % (AUTO) 2 % (0-10); HEMATOCRIT 34 % (35-52); HEMOGLOBIN 10.7 g/dL (11.5-16.0); LYMPHOCYTES # (AUTO) 0.9 10^3/uL (1.0-4.0); LYMPHOCYTES % (AUTO) 12 % (12-44); MEAN CORPUSCULAR HEMOGLOBIN 29 pg (25-34); MEAN CORPUSCULAR HGB CONC 32 g/dL (32-36); MEAN CORPUSCULAR VOLUME 89 fL (80-99); MEAN PLATELET VOLUME 10.3 fL (9.0-12.2); MONOCYTES # (AUTO) 0.9 10^3/uL (0.0-1.0); MONOCYTES % (AUTO) 12 % (0-12); NEUTROPHILS # (AUTO) 5.6 10^3/uL (1.8-7.8); NEUTROPHILS % (AUTO) 73 % (42-75); PLATELET COUNT 213 10^3/uL (130-400); WHITE BLOOD COUNT 7.6 10^3/uL (4.3-11.0)
[2022-06-10] MEDS ORDERED: NS IV 1000 ML 1,000 ML IV SCH (23:15)
[2022-06-10] MEDS ORDERED: SCOPOLAMINE 1.5 MG (TRANSDERM-SCOP) PATCH TD ONE (23:15)
--- NOTE | 2022-06-10 23:20 | ED General ---
General Chief Complaint: Dizziness/Syncope Stated Complaint: DIZZY Nursing Triage Note: BROUGHT IN BY [facility] FOR C/O DIZZINESS ALL DAY, WORSE TONIGHT. HEADACHE. Source of Information: Patient, EMS, Old Records History of Present Illness Date Seen by Provider: Jun 10, 2022 Time Seen by Provider: 22:57 Initial Comments PT ARRIVES VIA EMS FROM HOME PT STATES SHE HAS BEEN VERY DIZZY SINCE WAKING AT 11:00 AM THIS MORNING SHE SLEPT IN A CHAIR ALL NIGHT, AND STATES SHE "PEED FOR 16 HOURS STRAIGHT LAST NIGHT" --INCONTINENT OF URINE. STATES SHE WOULD TRY TO GET UP, AND THEN WOULD URINATE, SO SHE WOULD SIT BACK DOWN. SHE STATES SHE DID THIS ALL NIGHT LAST NIGHT. STATES WHEN SHE WOKE AT 11:00, SHE THEN WALKED TO THE BATHROOM AND WAS VERY DIZZY, AND STARTED TO TAKE A SHOWER, AND FELT LIKE SHE WAS GOING TO PASS OUT, SO SAT DOWN. THE DIZZINESS HAS CONTINUED ALL DAY AND ALL EVENING DIZZINESS IS WORSE WITH STANDING/WALKING OR POSITION CHANGES, AND IS A SPINNING SENSATION SYMPTOMS A LITTLE BETTER IF SHE LAYS DOWN SHE HAS STARTED TO HAVE A HEADACHE THE DAY AND EVENING HAS PROGRESSED--SHE HAS NOT TAKEN ANYTHING FOR HER HEADACHE NO VISION CHANGES NO CHEST PAIN NO SHORTNESS OF BREATH NO RACING HEART OR SENSATION OF IRREGULAR HEART BEAT OR POUNDING HEART BEAT NO SWEATS NO NAUSEA/VOMITING NO PAIN IN ABDOMEN SHE HAS NOT TAKEN ANY OF HER MEDICATIONS TODAY PT WAS ADMITTED TO THE HOSPITAL FROM 05/17/22-05/24/22, THEN INPATIENT REHAB FROM 05/24-06/04/22 SHE WAS DX WITH SEPTIC VS CARDIOGENIC SHOCK, UTI, AFIB/RVR, ACUTE ON CHRONIC RENAL DISEASE, ACUTE ISCHEMIC HEPATITIS, CHF SHE HAS A DEFIBRILLATOR IN PLACE, AND HAS HISTORY OF CHF SHE IS ON ELIQUIS FOR ATRIAL FIBRILLATION. HER LASIX WAS STOPPED DUE TO POOR RENAL FUNCTION SHE HAS FOLLOWED UP WITH HER PCP, DR. REYNA THIS WEEK SINCE BEING DISMISSED FROM THE HOSPITAL. HE DID NOT CHANGE HER MEDICATIONS VITALS FOR EMS: BP 100-115 SYSTOLIC, HR IN 80'S, O2 SATS UPPER 90'S ON ROOM AIR ACCUCHECK 209 FOR EMS. PT STATES SHE DID NOT EAT LUNCH OR DINNER, BUT "MAYBE HAD A FEW PIECES OF CHOCOLATE" TODAY. SHE TOLD EMS SHE IS NOT DIABETIC HOWEVER, DIABETES IS LISTED DX ON PMH, AND PT IS PRESCRIBED JARDIANCE. Allergies and Home Medications Allergies Coded Allergies: codeine (Verified Allergy, Mild, HALLUCINATIONS, 01/18/17) hydrocodone (Verified Allergy, NAUSEA AND VOMITING, 05/24/22) oxycodone (Verified Allergy, NAUSEA AND VOMITING, 05/24/22) Patient Home Medication List ALPRAZolam (Xanax Tablet) 0.25 Mg Tab, 0.25 MG PO Q8H PRN for ANXIETY Prescribed by: ANNEL ESTES on 06/03/22 1230 Amlodipine Besylate (Amlodipine Besylate) 10 Mg Tablet, 10 MG PO DAILY Prescribed by: ANNEL ESTES on 06/03/22 1229 Apixaban (Eliquis) 5 Mg Tablet, 5 MG PO BID Prescribed by: ANNEL ESTES on 06/03/22 1229 Carvedilol (Carvedilol) 3.125 Mg Tablet, 3.125 MG PO BID Prescribed by: ANNEL ESTES on 06/03/22 1229 Cyanocobalamin (Vitamin B-12) (Vitamin B-12) 1,000 Mcg Tablet, 1,000 MCG PO DAILY Prescribed by: ANNEL ESTES on 06/03/22 1229 Doxazosin Mesylate (Doxazosin Mesylate) 4 Mg Tablet, 4 MG PO BID Prescribed by: ANNEL ESTES on 06/03/22 1229 Empagliflozin (Jardiance) 10 Mg Tablet, 10 MG PO DAILY Prescribed by: ANNEL ESTES on 06/03/22 1229 Fish Oil/Dha/Epa (Fish Oil 1,200 mg Fish Oil) 1,200 Mg-144 Mg-216 Mg Capsule, 1 EACH PO DAILY, (Reported) Entered as Reported by: KIMBERLY BURRIS on 02/16/22 1223 Furosemide (Furosemide) 40 Mg Tablet, 40 MG PO DAILY Prescribed by: ANNEL ESTES on 06/03/22 1229 Lactobacillus Acidophilus/Pect (Acidophilus-Pectin Capsule) 75 Million Cell-100 Mg Capsule, 2 EACH PO TIDWM Prescribed by: ANENL ESTES on 06/03/22 1229 Letrozole (Letrozole) 2.5 Mg Tablet, 2.5 MG PO DAILY Prescribed by: ANNEL ESTES on 06/03/22 1229 Meclizine HCl (Meclizine HCl) 25 Mg Tablet, 25 MG PO DAILY Prescribed by: ANNEL ESTES on 06/03/22 122 Sodium Chloride ([place]) 0.65 % [place], 0 ML NA QID Prescribed by: ANNEL ESTES on 06/03/22 122 Venlafaxine HCl (Venlafaxine HCl ER) 150 Mg Cap.er.24h, 150 MG PO DAILY Prescribed by: ANNEL ESTES on 06/03/22 122 Past Zczmtrl-Ujrtca-Rapwsi Hx Patient Social History Tobacco Use?: No Substance use?: No Alcohol Use?: No Pt feels they are or have been: No Immunizations Up To Date First/Initial COVID19 Vaccinat: 2020 Second COVID19 Vaccination [place]: 2020 Third COVID19 Vaccination Date: 2021 Seasonal Allergies Seasonal Allergies: Yes Past Medical History Surgery/Hospitalization HX: LUMPECTOMY ON LEFT SIDE, RT SIDE MASTECTOMY, AND GALLBLADDER, PPM. TUBAL AFIB RVR, EF 10-15%, HIGH CHOLESTEROL, HTN, BREAST CANCER Surgeries: Yes (LUMPECTOMY-LEFT BREAST) Breast, Gallbladder, Tubal Ligation Respiratory: No Cardiac: Yes (CHF; NON-ISCHEMIC CARDIOMYOPATHY. 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: Tubal Ligation Sexually Transmitted Disease: No HIV/AIDS: No Genitourinary: No Bladder Infection Gastrointestinal: No Polyps Musculoskeletal: Yes Arthritis Endocrine: Yes Diabetes, Non-Insulin dep HEENT: No Loss of Vision: Bilateral Hearing Impairment: Denies Cancer: Yes (LEFT LUMPECTOMY, CHEMO AND RADIATION--DX IN 1980) Breast Did You Recieve Any Treatments: Yes What Type of Treatment Did You: Chemotherapy, Radiation, Surgical Intervention Psychosocial: No Integumentary: No Blood Disorders: No Adverse Reaction/Blood Tranf: No (N/A) Family Medical History No Pertinent Family Hx Physical Exam Vital Signs Vital Signs - First Documented 06/10/22 22:57 Temp 36.3 Pulse 82 Resp 16 B/P (MAP) 101/51 (68) Pulse Ox 99 O2 Delivery Room Air Capillary Refill : Less Than 3 Seconds Height, Weight, BMI Height: 5'8.00" Weight: 230lbs. 0.0oz. 104.817706jt; 39.00 BMI Method:Stated Progress/Results/Core Measures Suspected Sepsis SIRS Temperature: Pulse: 82 Respiratory Rate: 16 Laboratory Tests 06/10/22 23:05: White Blood Count 7.6 Blood Pressure 101 /51 Mean: 68 Laboratory Tests 06/10/22 23:05: Creatinine 1.95H, INR Comment 1.4, Platelet Count 213, Total Bilirubin 2.9H Results/Orders Lab Results Laboratory Tests Test 06/10/22 23:05 Range/Units White Blood Count 7.6 4.3-11.0 10^3/uL Red Blood Count 3.76 L 3.80-5.11 10^6/uL Hemoglobin 10.7 L 11.5-16.0 g/dL Hematocrit 34 L 35-52 % Mean Corpuscular Volume 89 80-99 fL Mean Corpuscular Hemoglobin 29 25-34 pg Mean Corpuscular Hemoglobin Concent 32 32-36 g/dL Red Cell Distribution Width 16.9 H 10.0-14.5 % Platelet Count 213 130-400 10^3/uL Mean Platelet Volume 10.3 9.0-12.2 fL Immature Granulocyte % (Auto) 1 % Neutrophils (%) (Auto) 73 42-75 % Lymphocytes (%) (Auto) 12 12-44 % Monocytes (%) (Auto) 12 0-12 % Eosinophils (%) (Auto) 2 0-10 % Basophils (%) (Auto) 1 0-10 % Neutrophils # (Auto) 5.6 1.8-7.8 10^3/uL Lymphocytes # (Auto) 0.9 L 1.0-4.0 10^3/uL Monocytes # (Auto) 0.9 0.0-1.0 10^3/uL Eosinophils # (Auto) 0.2 0.0-0.3 10^3/uL Basophils # (Auto) 0.1 0.0-0.1 10^3/uL Immature Granulocyte # (Auto) 0.0 0.0-0.1 10^3/uL Prothrombin Time 18.0 H 12.2-14.7 SEC INR Comment 1.4 0.8-1.4 Activated Partial Thromboplast Time 40 H 24-35 SEC Sodium Level 143 135-145 MMOL/L Potassium Level 3.2 L 3.6-5.0 MMOL/L Chloride Level 102 98-107 MMOL/L Carbon Dioxide Level 23 21-32 MMOL/L Anion Gap 18 H 5-14 MMOL/L Blood Urea Nitrogen 20 H 7-18 MG/DL Creatinine 1.95 H 0.60-1.30 MG/DL Estimat Glomerular Filtration Rate 27 BUN/Creatinine Ratio 10 Glucose Level 138 H 70-105 MG/DL Calcium Level 9.8 8.5-10.1 MG/DL Corrected Calcium 9.9 8.5-10.1 MG/DL Magnesium Level 1.5 L 1.6-2.4 MG/DL Total Bilirubin 2.9 H 0.1-1.0 MG/DL Aspartate Amino Transf (AST/SGOT) 23 5-34 U/L Alanine Aminotransferase (ALT/SGPT) 29 0-55 U/L Alkaline Phosphatase 120 40-136 U/L Troponin I 0.043 H <0.028 NG/ML Total Protein 7.6 6.4-8.2 GM/DL Albumin 3.9 3.2-4.5 GM/DL TSH [place] Testing 9.93 H 0.35-4.94 UIU/ML My Orders Orders - KASIA VENTURA DO Ed Iv/Invasive Line Start (06/10/22 23:08) Ekg Tracing (06/10/22 23:08) Monitor-Rhythm Ecg Trace Only (06/10/22 23:08) Cbc With Automated Diff (06/10/22:08) Comprehensive Metabolic Panel (06/10/22:08) Magnesium (06/10/22 23:08) Protime With Inr (06/10/22:08) Partial Thromboplastin Time (06/10/22:08) Thyroid Analyzer (06/10/22:08) Ua Culture If Indicated (06/10/22:08) Troponin I Wendy (06/10/22 23:08) Ct Head Wo-R/O Stroke (06/10/22 23:08) Ed Iv/Invasive Line Start (06/10/22 23:08) Ns Iv 1000 Ml (Sodium Chloride 0.9%) (06/10/22 23:15) Scopolamine Patch (Transderm-Scop Patch) (06/10/22 23:15) Free T4 (Free Thyroxine) (06/10/22 23:05) Chest 1 View, Ap/Pa Only (06/10/22 ) Medications Given in ED Current Medications Medications Dose Ordered Sig/Emrle Route Start Time Stop Time Status Last Admin Dose Admin Scopolamine 1.5 mg ONCE ONCE TD 06/10/22 23:15 06/10/22 23:16 DC 06/10/22 23:18 1.5 MG Vital Signs/I&O 06/10/22 22:57 Temp 36.3 Pulse 82 Resp 16 B/P (MAP) 101/51 (68) Pulse Ox 99 O2 Delivery Room Air Capillary Refill : Less Than 3 Seconds Blood Pressure Mean: 68 Departure Impression Primary Impression: Vertigo Additional Impressions: Generalized weakness Paroxysmal atrial fibrillation with RVR UTI Hypomagnesemia Hypokalemia Hypothyroidism Chronic CHF Chronic renal insufficiency NIDDM Departure-Patient Inst. Referrals: CAROLYNN REYNA MD (PCP/Family) Primary Care Physician KASIA VENTURA DO Jun 10, 2022 23:20
[2022-06-10 23:23] LABS: ALBUMIN 3.9 GM/DL (3.2-4.5); INR 1.4 (0.8-1.4)
[2022-06-10 23:24] LABS: POTASSIUM 3.2 MMOL/L (3.6-5.0)
[2022-06-10 23:25] LABS: CALCIUM 9.8 MG/DL (8.5-10.1)
[2022-06-10 23:26] LABS: TOTAL PROTEIN 7.6 GM/DL (6.4-8.2)
[2022-06-10 23:28] LABS: BILIRUBIN,TOTAL 2.9 MG/DL (0.1-1.0)
[2022-06-10 23:30] LABS: CREATININE SERUM 1.95 MG/DL (0.60-1.30)
[2022-06-10 23:32] LABS: MAGNESIUM 1.5 MG/DL (1.6-2.4)
[2022-06-10 23:52] LABS: TSH (THYROID ANALYZER) 9.93 UIU/ML (0.35-4.94)
[2022-06-11 00:43] LABS: FREE T4 (FREE THYROXINE) 1.06 NG/DL (0.70-1.48)
[2022-06-11 00:44] LABS: BILIRUBIN,URINE 1+ (NEGATIVE); CLARITY,URINE CLEAR; COLOR,URINE YELLOW; GLUCOSE, URINE (UA) 2+ (NEGATIVE); KETONES,URINE NEGATIVE (NEGATIVE); LEUKOCYTE ESTERASE ,URINE TRACE (NEGATIVE); NITRITE,URINE NEGATIVE (NEGATIVE); PROTEIN,URINE TRACE (NEGATIVE)
[2022-06-11 00:54] LABS: BACTERIA,URINE FEW /HPF; SQUAMOUS EPITHELIAL CELL,UR 0-2 /HPF
[2022-06-11] MEDS: CEFEPIME INJECTION 1,000 MG in NS (IVPB) 50 ML IV SCH ×2 (03:01→10:30)
[2022-06-11] MEDS ORDERED: MECLIZINE 25 MG (ANTIVERT) TAB PO PRN (03:30)
[2022-06-11] MEDS ORDERED: ONDANSETRON 4 MG/2 ML (SDV) Z0FRAN IV PRN (03:30)
[2022-06-11 05:44] LABS: BASOPHILS # (AUTO) 0.1 10^3/uL (0.0-0.1); BASOPHILS % (AUTO) 1 % (0-10); EOSINOPHILS # (AUTO) 0.2 10^3/uL (0.0-0.3); EOSINOPHILS % (AUTO) 2 % (0-10); HEMATOCRIT 29 % (35-52); HEMOGLOBIN 9.2 g/dL (11.5-16.0); LYMPHOCYTES # (AUTO) 1.3 10^3/uL (1.0-4.0); LYMPHOCYTES % (AUTO) 15 % (12-44); MEAN CORPUSCULAR HEMOGLOBIN 28 pg (25-34); MEAN CORPUSCULAR HGB CONC 32 g/dL (32-36); MEAN CORPUSCULAR VOLUME 89 fL (80-99); MEAN PLATELET VOLUME 10.3 fL (9.0-12.2); MONOCYTES # (AUTO) 0.9 10^3/uL (0.0-1.0); MONOCYTES % (AUTO) 10 % (0-12); NEUTROPHILS # (AUTO) 5.9 10^3/uL (1.8-7.8); NEUTROPHILS % (AUTO) 71 % (42-75); PLATELET COUNT 187 10^3/uL (130-400); WHITE BLOOD COUNT 8.3 10^3/uL (4.3-11.0)
[2022-06-11 05:50] LABS: POTASSIUM 3.2 MMOL/L (3.6-5.0)
[2022-06-11 05:52] LABS: CALCIUM 8.5 MG/DL (8.5-10.1)
[2022-06-11 05:53] LABS: TOTAL PROTEIN 5.9 GM/DL (6.4-8.2)
[2022-06-11 05:54] LABS: BILIRUBIN,TOTAL 2.2 MG/DL (0.1-1.0)
[2022-06-11 05:56] LABS: CREATININE SERUM 1.53 MG/DL (0.60-1.30)
[2022-06-11 05:59] LABS: MAGNESIUM 1.4 MG/DL (1.6-2.4)
--- NOTE | 2022-06-11 07:08 | Diagnostic Imaging Report ---
EXAMINATION: CT head without contrast. TECHNIQUE: Multiple contiguous axial images were obtained through the brain without the use of intravenous contrast. All CT scans use one or more of the following dose optimizing techniques: automated exposure control, MA and/or KvP adjustment based on patient size and exam type or iterative reconstruction. HISTORY: Dizziness COMPARISON: None available. FINDINGS: The ventricles and sulci are normal. No abnormal attenuation of brain parenchyma is present. No acute intracranial hemorrhage or abnormal extra-axial fluid collections are present. Calcification of the intracranial ICAs. No hyperdense vessel. The calvarium is intact. The mastoid air cells are clear. The visualized paranasal sinuses are clear. The orbits are normal. IMPRESSION: 1. No acute intracranial abnormality. 2. Agree with preliminary interpretation. Dictated by: Dictated on workstation # [id number]
[2022-06-11 07:26] VITALS: BP 109/49
--- NOTE | 2022-06-11 07:33 | Diagnostic Imaging Report ---
EXAMINATION: Chest 1 view HISTORY: Dizziness COMPARISON: 05/17/2022 FINDINGS: Heart size is mildly enlarged. Left-sided cardiac device is unchanged. There are low lung volumes with mild bibasilar atelectasis. No pleural effusion or pneumothorax. Multiple surgical clips overlie the bilateral chest wall. Degenerative changes of the thoracic spine. Osseous structures are otherwise intact. IMPRESSION: 1. No acute radiographic abnormality in the chest. Dictated by: Dictated on workstation # [id number]
[2022-06-11 10:51] VITALS: BP_SYST 104; BP_SYST 112; BP_DIAS 57; BP_DIAS 61; BP_DIAS 66
--- NOTE | 2022-06-11 11:20 | Consultation-Cardiology ---
HPI-Cardiology Cardiology Consultation: Date of Consultation 06/11/22 Time Seen by a Provider: 10:10 Date of Admission Attending Physician Jg Kirk MD Admitting Physician Admitting Physician: Marissa Cárdenas MD Attending Physician: Marissa Cárdenas MD Consulting Physician CHAU POPE MD, MA, FACP, FACC, [facility] [place], CCDS HPI: Chief Complaint: Reason for Card consult: H/o cardiomyopathy 71 yo woman who was admitted to Dr. Cárdenas's service yesterday and for whom we were called on consult today. She came to the ER with dizziness, especially with posture changes and in shower. No juliet syncope. No palp. No cp. Has gen weakness and malaise present for several days/weeks (since recent admission for cardiogenic / septic shock). This weakness has slowly been improving. The newest (within the last 2 days) symptoms has been frequency of urination. Has urinated a lot and frequently in the past 48 hours, to the point of exhaustion. No dysuria. No blood in urine Review of Systems-Cardiology Review of Systems Constitutional: malaise, tiredness; No weight loss, No weight gain Eyes: No vision change Ears/Nose/Throat: No ear discharge, No nasal drainage, No recent hearing loss Respiratory: As described under HPI Cardiovascular: As described under HPI Gastrointestinal: No diarrhea, No nausea, No vomiting Genitourinary: As described under HPI Musculoskeletal: back pain (chronic), other (chronic L arm swelling) Skin: No rash, No ulcerations Psychiatric/Neurological: No seizure, No focal weakness, No syncope Hematologic: No bleeding abnormalities AFG-Tnlpnr-Hbfzgu Hx Patient Social History Smoking Status: Former Smoker Have you traveled recently?: No Alcohol Use?: No Pt feels they are or have been: No Immunizations Up To Date Date of Pneumonia Vaccine: Jan 29, 2017 Date of Influenza Vaccine: Feb 12, 2022 Past Medical History PMH As described under Assessment. Family Medical History Family Medical History: She reports her sister also has cardiomyopathy with an AICD in place. She denies any other family h/o CAD. Allergies and Home Medications Allergies Coded Allergies: codeine (Verified Allergy, Mild, HALLUCINATIONS, 01/18/17) hydrocodone (Verified Allergy, NAUSEA AND VOMITING, 05/24/22) oxycodone (Verified Allergy, NAUSEA AND VOMITING, 05/24/22) Patient Home Medication List Home Medication List Reviewed: Yes ALPRAZolam (Xanax Tablet) 0.25 Mg Tab, 0.25 MG PO Q8H PRN for ANXIETY Prescribed by: ANNEL ESTES on 06/03/22 1230 Amlodipine Besylate (Amlodipine Besylate) 10 Mg Tablet, 10 MG PO DAILY Prescribed by: ANNEL ESTES on 06/03/22 1229 Apixaban (Eliquis) 5 Mg Tablet, 5 MG PO BID Prescribed by: ANNEL ESTES on 06/03/22 1229 Carvedilol (Carvedilol) 3.125 Mg Tablet, 3.125 MG PO BID Prescribed by: ANNEL ESTES on 06/03/22 1229 Cyanocobalamin (Vitamin B-12) (Vitamin B-12) 1,000 Mcg Tablet, 1,000 MCG PO DAILY Prescribed by: ANNEL ESTES on 06/03/22 1229 Doxazosin Mesylate (Doxazosin Mesylate) 4 Mg Tablet, 4 MG PO BID Prescribed by: ANNEL ESTES on 06/03/22 1229 Empagliflozin (Jardiance) 10 Mg Tablet, 10 MG PO DAILY Prescribed by: ANNEL ESTES on 06/03/22 1229 Fish Oil/Dha/Epa (Fish Oil 1,200 mg Fish Oil) 1,200 Mg-144 Mg-216 Mg Capsule, 1 EACH PO DAILY, (Reported) Entered as Reported by: KIMBERLY BURRIS on 02/16/22 1223 Furosemide (Furosemide) 40 Mg Tablet, 40 MG PO DAILY Prescribed by: ANNEL ESTES on 06/03/22 1229 Lactobacillus Acidophilus/Pect (Acidophilus-Pectin Capsule) 75 Million Cell-100 Mg Capsule, 2 EACH PO TIDWM Prescribed by: ANNEL ESTES on 06/03/22 1229 Letrozole (Letrozole) 2.5 Mg Tablet, 2.5 MG PO DAILY Prescribed by: ANNEL ESTES on 06/03/22 1229 Meclizine HCl (Meclizine HCl) 25 Mg Tablet, 25 MG PO DAILY Prescribed by: ANNEL ESTES on 06/03/22 1229 Sodium Chloride (Deep Sea) 0.65 % Carney, 0 ML NA QID Prescribed by: ANNEL ESTES on 06/03/22 1229 Venlafaxine HCl (Venlafaxine HCl ER) 150 Mg Cap.er.24h, 150 MG PO DAILY Prescribed by: ANNEL ESTES on 06/03/22 1229 Physical Exam-Cardiology Physical Exam Vital Signs/I&O 06/11/22 06/11/22 06/11/22 06/11/22 00:40 00:54 01:05 07:00 Temp 36.3 Pulse 104 106 85 Resp 16 B/P (MAP) 102/47 Pulse Ox 99 99 O2 Delivery Room Air Room Air 06/11/22 06/11/22 06/11/22 07:26 08:00 10:51 Temp 36.6 Pulse 86 84 91 103 Resp 16 B/P (MAP) 109/49 (69) 104/61 (75) 112/57 (75) 112/66 (81) Pulse Ox 98 98 O2 Delivery Nasal Cannula Nasal Cannula O2 Flow Rate 2.00 2.00 Capillary Refill : Less Than 3 Seconds Constitutional: AAO x 3, well-developed, well-nourished HEENT: EOMI, hearing is well preserved; No xanthelasmas are seen Neck: carotid pulses are 2 + bilaterally, with good upstrokes Respiratory: No accessory muscle use; chest expansion is symmetric, chest is bilaterally symmetric, other (good, bilateral air entry) Cardiovascular: irregularly irregular, S1 and S2, systolic murmur (soft YASSINE at card base) Gastrointestinal: No tender; soft; No guarding, No rebound; audible bowel sounds Extremities: No swelling (mild to mod bilat leg swelling; chronic mod swelling of the L arm) Neurologic/Psychiatric: oriented x 3, other (moves all limbs equally) Skin: normal color, warm/dry; No cyanosis, No rash on exposed areas, No ulcerations on exposed areas Data Review Labs Laboratory Tests 06/10/22 23:05: White Blood Count 7.6, Red Blood Count 3.76L, Hemoglobin 10.7L, Hematocrit 34L, Mean Corpuscular Volume 89, Mean Corpuscular Hemoglobin 29, Mean Corpuscular Hemoglobin Concent 32, Red Cell Distribution Width 16.9H, Platelet Count 213, Mean Platelet Volume 10.3, Immature Granulocyte % (Auto) 1, Neutrophils (%) (Auto) 73, Lymphocytes (%) (Auto) 12, Monocytes (%) (Auto) 12, Eosinophils (%) (Auto) 2, Basophils (%) (Auto) 1, Neutrophils # (Auto) 5.6, Lymphocytes # (Auto) 0.9L, Monocytes # (Auto) 0.9, Eosinophils # (Auto) 0.2, Basophils # (Auto) 0.1, Immature Granulocyte # (Auto) 0.0, Prothrombin Time 18.0H, INR Comment 1.4, Activated Partial Thromboplast Time 40H, Sodium Level 143, Potassium Level 3.2L, Chloride Level 102, Carbon Dioxide Level 23, Anion Gap 18H, Blood Urea Nitrogen 20H, Creatinine 1.95H, Estimat Glomerular Filtration Rate 27, BUN/Creatinine Ratio 10, Glucose Level 138H, Calcium Level 9.8, Corrected Calcium 9.9, Magnesium Level 1.5L, Total Bilirubin 2.9H, Aspartate Amino Transf (AST/SGOT) 23, Alanine Aminotransferase (ALT/SGPT) 29, Alkaline Phosphatase 120, Troponin I 0.043H, Total Protein 7.6, Albumin 3.9, Free Thyroxine 1.06, TSH [place] Testing 9.93H 06/11/22 00:35: Urine Color YELLOW, Urine Clarity CLEAR, Urine pH 6.0, Urine Specific [place] <=1.005, Urine Protein TRACEH, Urine Glucose (UA) 2+H, Urine Ketones NEGATIVE, Urine Nitrite NEGATIVE, Urine Bilirubin 1+H, Urine Urobilinogen 2.0, Urine Leukocyte Esterase TRACEH, Urine RBC (Auto) 1+H, Urine RBC 5-10H, Urine WBC 5- 10H, Urine Squamous Epithelial Cells 0-2, Urine Crystals NONE, Urine Bacteria FEWH, Urine Casts PRESENT, Urine Hyaline Casts 2-5H, Urine Mucus NEGATIVE, Urine Culture Indicated YES 06/11/22 02:59: Troponin I 0.032H 06/11/22 05:36: White Blood Count 8.3, Red Blood Count 3.26L, Hemoglobin 9.2L, Hematocrit 29L, Mean Corpuscular Volume 89, Mean Corpuscular Hemoglobin 28, Mean Corpuscular Hemoglobin Concent 32, Red Cell Distribution Width 17.0H, Platelet Count 187, Mean Platelet Volume 10.3, Immature Granulocyte % (Auto) 1, Neutrophils (%) (Auto) 71, Lymphocytes (%) (Auto) 15, Monocytes (%) (Auto) 10, Eosinophils (%) (Auto) 2, Basophils (%) (Auto) 1, Neutrophils # (Auto) 5.9, Lymphocytes # (Auto) 1.3, Monocytes # (Auto) 0.9, Eosinophils # (Auto) 0.2, Basophils # (Auto) 0.1, Immature Granulocyte # (Auto) 0.1, Sodium Level 144, Potassium Level 3.2L, Chloride Level 108H, Carbon Dioxide Level 23, Anion Gap 13, Blood Urea Nitrogen 18, Creatinine 1.53H, Estimat Glomerular Filtration Rate 37, BUN/Creatinine Ratio 12, Glucose Level 84, Calcium Level 8.5, Corrected Calcium 9.3, Magnesium Level 1.4L, Total Bilirubin 2.2H, Aspartate Amino Transf (AST/SGOT) 21, Alanine Aminotransferase (ALT/SGPT) 23, Alkaline Phosphatase 93, Troponin I 0.031H, Total Protein 5.9L, Albumin 3.0L Laboratory Tests 06/10/22 23:05 06/11/22 05:36 A/P-Cardiology Assessment/Admission Diagnosis Diuretic phase of recovery from acute tubular necrosis - elec abnormalities associated with the diuretic phasee Shock in May 2022 - septic and/or cardiogenic - associated with ATN Jaundice (elev bilirubin) of undetermined etiology - managed by Dr Estes PAF - Apixaban prophylaxis Chronic HFrEF due to NICM (primarily managed by her caretaker resort Dr Woodward in [place], [place]) - Echocardiogram of 04-08-[address] Felton showed LVEF 10-15% with severe diffuse hypokinesis. LA and RA dilated. Mod to severe AoR. Mod MR. Mod to severe TR. PASP 50-55 mmHg - She reports she had a sleep study done that was "inconclusive" - she does not use CPAP or supplemental oxygen - managed by Dr. Kirk - AICD - implanted in September 2021 at [facility] (single chamber device) - followed by Dr. Woodward - Echo on 05-17-22: LVEF 20-25%, global hypokinesis of LV, mild to mod MR, PASP 35-40 mmHg HLD - statin tx H/o DVT R leg - OAC with Eliquis H/o Breast Cancer - has had a mastectomy Gen weakness - d/t prolonged illness Chronic lymphedema of the SUSAN Discussion and Recomendations * Replenish electrolytes * Reduce dose of furosemide * Reduce meds with antihypertensive effects * Low dose bb * Consider adding NIRALI-inhib / ARB when renal function and bp can afford such addition * Continue apixaban for stroke prophylaxis * Monitor labs closely CHAU POPE MD FACP [facility] Jun 11, 2022 11:20
[2022-06-11 11:29] VITALS: BP 104/61
--- NOTE | 2022-06-11 11:54 | History & Physical ---
JINGESTHER 06/11/22 1154: History of Present Illness History of Present Illness Reason for visit/HPI Patient is a 71-year-old female with a history of systolic heart failure, afib, HTN, vertigo, chronic edema, hx of breast cancer with lumpectomy, chemo and radiation, and has an ICD in place who presented to the ED on 06/10 with chief complaint of vertigo. She states that she has had vertigo for several years but that it is well-controlled on her meclizine 25 mg po daily, however, the patient did not take any of her medications yesterday. The patient stated that she got up to shower and became extremely dizzy and near syncope and described the sensation as the room spinning. She sat down on the edge of the tub and reports that she was unable to stand up by herself. Her son was able to help her up and the patient felt better for several hours following the event. Later that day the symptoms began to get progressively worse leading to EMS being called. The patient reports that her vertigo is worsened by positional changes and is slightly better when she is laying down. The patient was admitted on 05/17 for septic vs cardiogenic shock and was also found to have afib, acute on chronic kidney disease, and acute ischemic hepatitis during this time. Her condition improved and she was transferred to IRU from 05/24 to 06/04 for weakness. She was discharged on lasix 40 mg PO daily which the patient did not take because she felt that she was urinating more than enough already. She stated that prior to attempting to shower yesterday, she had peed for 16 hours. The patient has urinary incontinence which she says has been going on for a couple of years. She describes that she feels the urge to urinate and has only a few seconds before she goes. The patient reports that she has had migraines with an aura for several years and that this was worsened yesterday. Today she has not had any migraines or headaches. Today the patient reports that they are feeling greatly improved. They have had no further episodes of vertigo since admission. Her only complaint currently is of some minor left-sided neck pain. She states that it has been slightly painful for the last few days but that it began to worsen yesterday. Patient has some LE edema b/l worse on the right side. She states that the left leg is about her baseline and that the right is slightly more edematous than normal. The patient frequently has lymphedema in her left arm following treatment for her breast cancer and states that this was the case during her stay in May. However, she reports that this has improved and is now back to her baseline. The patient converted into afib after admission but is currently sinus rhythm, the patient noted palpitations while in afib. The patient has no other complaints. Date of Admission Jun 11, 2022 at 00:15 Date Seen by a Provider: Jun 11, 2022 Time Seen by a Provider: 11:00 I consulted on this patient on 06/11/22 11:49 Attending Physician Jg Kirk MD Admitting Physician Admitting Physician: Anand Diaz MD Attending Physician: Anand Diaz MD Consult Allergies and Home Medications Allergies Coded Allergies: codeine (Verified Allergy, Mild, HALLUCINATIONS, 01/18/17) hydrocodone (Verified Allergy, NAUSEA AND VOMITING, 05/24/22) oxycodone (Verified Allergy, NAUSEA AND VOMITING, 05/24/22) Patient Home Medication List Home Medication List Reviewed: Yes Amlodipine Besylate (Amlodipine Besylate) 10 Mg Tablet, 10 MG PO DAILY Prescribed by: ANNEL ESTES on 06/03/221228 Last Action: Held Apixaban (Eliquis) 5 Mg Tablet, 5 MG PO BID Prescribed by: ANNEL ESTES on 06/03/221228 Last Action: Continued Carvedilol (Carvedilol) 3.125 Mg Tablet, 3.125 MG PO BID Prescribed by: ANNEL ESTES on 06/03/221228 Last Action: Held Cyanocobalamin (Vitamin B-12) (Vitamin B-12) 1,000 Mcg Tablet, 1,000 MCG PO DAILY Prescribed by: ANNEL ESTES on 06/03/221228 Last Action: Held Doxazosin Mesylate (Doxazosin Mesylate) 4 Mg Tablet, 4 MG PO BID Prescribed by: ANNEL ESTES on 06/03/221228 Last Action: Held Empagliflozin (Jardiance) 10 Mg Tablet, 10 MG PO DAILY Prescribed by: ANNEL ESTES on 06/03/221228 Last Action: Continued Fish Oil/Dha/Epa (Fish Oil 1,200 mg Fish Oil) 1,200 Mg-144 Mg-216 Mg Capsule, 1 EACH PO DAILY, (Reported) Entered as Reported by: KIMBERLY BURRIS on 02/16/221222 Last Action: Held Furosemide (Furosemide) 40 Mg Tablet, 40 MG PO DAILY Prescribed by: ANNEL ESTES on 06/03/221228 Last Action: Held Furosemide (Furosemide) 20 Mg Tablet, 20 MG PO DAILY Prescribed by: ANAND DIAZ on 06/12/22 1010 Lactobacillus Acidophilus/Pect (Acidophilus-Pectin Capsule) 75 Million Cell-100 Mg Capsule, 2 EACH PO TIDWM Prescribed by: ANNEL ESTES on 06/03/221228 Last Action: Continued Letrozole (Letrozole) 2.5 Mg Tablet, 2.5 MG PO DAILY Prescribed by: ANNEL ESTES on 06/03/221228 Last Action: Continued Meclizine HCl (Meclizine HCl) 25 Mg Tablet, 25 MG PO DAILY Prescribed by: ANNEL ESTES on 06/03/221228 Last Action: Continued Sodium Chloride (Deep Sea) 0.65 % [place], 0 ML NA QID Prescribed by: ANNEL ESTES on 06/03/221228 Last Action: Held Venlafaxine HCl (Venlafaxine HCl ER) 150 Mg Cap.er.24h, 150 MG PO DAILY Prescribed by: ANNEL ESTES on 06/03/221228 Last Action: Converted Discontinued Medications ALPRAZolam (Xanax Tablet) 0.25 Mg Tab, 0.25 MG PO Q8H PRN for ANXIETY Discontinued Reason: No Longer Taking Prescribed by: ANNEL ESTES on 06/03/221229 Last Action: Discontinued Past Nasuzxl-Svpqxv-Fbiaur Hx Patient Social History Tobacco Use?: No Smoking Status: Former Smoker Smokeless Tobacco Frequency: Never a User Use of E-Cig and/or Vaping dev: No Substance use?: No Alcohol Use?: No Pt feels they are or have been: No Immunizations Up To Date Date of Influenza Vaccine: Feb 12, 2022 First/Initial COVID19 Vaccinat: 2020 Second COVID19 Vaccination [place]: 2020 Tetanus Booster (TDap): Unknown Hepatitis A: No Hepatitis B: No Date of Pneumonia Vaccine: Jan 29, 2017 Seasonal Allergies Seasonal Allergies: Yes Current Status status: No status: No Advance Directives: Yes Advance Directive Location: Home Communicates: Verbally Primary Language: Cymraes Preferred Spoken Language: Cymraes Is interpretation needed?: No Sensory deficits: Vision impairment Implanted or Applied Medical D: Implantable cardioverter Past Medical History Surgeries: Breast, Gallbladder, Tubal Ligation Atrial Fibrillation, Cardiomyopathy, Chronic Edema/Swelling, Hypertension [employer] History: Tubal Ligation Sexually Transmitted Disease: No HIV/AIDS: No Bladder Infection Polyps Arthritis Diabetes, Non-Insulin dep Loss of Vision: Bilateral Hearing Impairment: Denies Breast Did You Recieve Any Treatments: Yes What Type of Treatment Did You: Chemotherapy, Radiation, Surgical Intervention Blood Disorders: No Adverse Reaction/Blood Tranf: No (N/A) Family Medical History No Pertinent Family Hx Review of Systems Constitutional: No chills; dizziness (improving); No fever; weakness EENTM: No hearing loss, No blurred vision, No vision loss Respiratory: No cough, No dyspnea on exertion, No short of breath Cardiovascular: edema (b/l LE, worse on right), palpitations (resolved after converting to sinus rhythm) Gastrointestinal: No abdominal pain, No nausea, No vomiting Genitourinary: No dysuria, No hematuria; incontinence (urge, pt states going on for 2 years) Musculoskeletal: No back pain; neck pain (Left side, mild, worse with movement) Skin: No change in color, No change in hair/nails, No rash Psychiatric/Neurological: Headache (improved today); Denies Numbness; Weakness Physical Exam Vital Signs Vital Signs - First Documented 06/10/22 06/11/22 22:57 07:26 Temp 36.3 Pulse 82 Resp 16 B/P (MAP) 101/51 (68) Pulse Ox 99 O2 Delivery Room Air O2 Flow Rate 2.00 Capillary Refill : Less Than 3 Seconds Height, Weight, BMI Height: 5'8.00" Weight: 230lbs. 0.0oz. [id number]; 34.00 BMI Method:Stated General Appearance: No Apparent Distress, WD/WN HEENT: PERRL/EOMI, Pharynx Normal, Moist Mucous Membranes Neck: Non Tender, Supple Respiratory: Normal Breath Sounds, No Accessory Muscle Use, No Respiratory Distress Cardiovascular: Regular Rate, Rhythm, Normal Peripheral Pulses, Systolic Murmur Gastrointestinal: Non Tender, Soft Rectal: Deferred Back: No Vertebral Tenderness Extremity: Normal Capillary Refill, Non Tender, No Calf Tenderness Neurologic/Psychiatric: Alert, Oriented x3 Skin: Normal Color, Warm/Dry Lymphatic: No Adenopathy Assessment/Plan Assessment and Plan Vertigo Othostatic pressures normal Continue meclizine 25 mg Q6H PO PRN On scopolamine patch 1.5mg Q72H Work with PT UTI Currently on Cefepime 1000mg IV Q8H Urine culture from recent visit grew chun-sensitive E. coli Will transition to Rocephin 1000mg IV daily Systolic HF Denies chest pain/SOB O2 sats in high 90s on RA Echo obtained on 05/17 shows EF of 20-25% Lucien inhibitor/ARB contraindicated due to renal function A-fib, nonvalvular Converted to afib after admission, but currently in sinus rhythm Cardiology consulted Rate currently well-controlled Eliquis 5mg BID Elevated troponin Measured at 0.347 on 05/18 Has been continuing to trend downward Hx of breast cancer No acute needs, clinically significant Chronic lymphedema of left upper extremity Patient states currently at baseline DVT prophylaxis Currently on Eliquis 5mg BID ANAND DIAZ MD 06/12/22 1109: Allergies and Home Medications Allergies Coded Allergies: codeine (Verified Allergy, Mild, HALLUCINATIONS, 01/18/17) hydrocodone (Verified Allergy, NAUSEA AND VOMITING, 05/24/22) oxycodone (Verified Allergy, NAUSEA AND VOMITING, 05/24/22) Patient Home Medication List Amlodipine Besylate (Amlodipine Besylate) 10 Mg Tablet, 10 MG PO DAILY Prescribed by: ANNEL ESTES on 06/03/221228 Last Action: Held Apixaban (Eliquis) 5 Mg Tablet, 5 MG PO BID Prescribed by: ANNEL ESTES on 06/03/221228 Last Action: Continued Carvedilol (Carvedilol) 3.125 Mg Tablet, 3.125 MG PO BID Prescribed by: ANNEL ESTES on 06/03/221228 Last Action: Held Cyanocobalamin (Vitamin B-12) (Vitamin B-12) 1,000 Mcg Tablet, 1,000 MCG PO DAILY Prescribed by: ANNEL ESTES on 06/03/221228 Last Action: Held Doxazosin Mesylate (Doxazosin Mesylate) 4 Mg Tablet, 4 MG PO BID Prescribed by: ANNEL ESTES on 06/03/221228 Last Action: Held Empagliflozin (Jardiance) 10 Mg Tablet, 10 MG PO DAILY Prescribed by: ANNEL ESTES on 06/03/221228 Last Action: Continued Fish Oil/Dha/Epa (Fish Oil 1,200 mg Fish Oil) 1,200 Mg-144 Mg-216 Mg Capsule, 1 EACH PO DAILY, (Reported) Entered as Reported by: KIMBERLY BURRIS on 02/16/221222 Last Action: Held Furosemide (Furosemide) 40 Mg Tablet, 40 MG PO DAILY Prescribed by: ANNEL ESTES on 06/03/221228 Last Action: Held Furosemide (Furosemide) 20 Mg Tablet, 20 MG PO DAILY Prescribed by: ANAND DIAZ on 06/12/22 1010 Lactobacillus Acidophilus/Pect (Acidophilus-Pectin Capsule) 75 Million Cell-100 Mg Capsule, 2 EACH PO TIDWM Prescribed by: ANNEL ESTES on 06/03/221228 Last Action: Continued Letrozole (Letrozole) 2.5 Mg Tablet, 2.5 MG PO DAILY Prescribed by: ANNEL ESTES on 06/03/221228 Last Action: Continued Meclizine HCl (Meclizine HCl) 25 Mg Tablet, 25 MG PO DAILY Prescribed by: ANNEL ESTES on 06/03/221228 Last Action: Continued Sodium Chloride (Deep Sea) 0.65 % [place], 0 ML NA QID Prescribed by: ANNEL ESTES on 06/03/221228 Last Action: Held Venlafaxine HCl (Venlafaxine HCl ER) 150 Mg Cap.er.24h, 150 MG PO DAILY Prescribed by: ANNEL ESTES on 06/03/221228 Last Action: Converted Discontinued Medications ALPRAZolam (Xanax Tablet) 0.25 Mg Tab, 0.25 MG PO Q8H PRN for ANXIETY Discontinued Reason: No Longer Taking Prescribed by: ANNEL ESTES on 06/03/221229 Last Action: Discontinued Assessment/Plan Assessment and Plan Patient admitted to the hospital due to vertigo and weakness with mild hypotension. She was admitted to stepdown and Cardiology was consulted. She reports feeling much better today and has no complaints at this time. Vertigo has improved since application of her scopolamine patch. She is standing up at the bed getting orthostatic vitals done. Her BP remains on the low to normal side so will hold some of her BP meds. Hopefully will be able to discharge home tomorrow if symptoms continue to improve. PT ordered. Admission Diagnosis Admission Status: Observation Supervisory-Addendum Brief Verification & Attestation Participated in pt care: history, MDM, physical Personally performed: exam, history, MDM, supervision of care Care discussed with: Medical Student Procedures: n/a Results interpretation: Verified all documentation Verification and Attestation of Medical Student E/M Service A medical student performed and documented this service in my presence. I reviewed and verified all information documented by the medical student and made modifications to such information, when appropriate. I personally performed the physical exam and medical decision making. Anand Diaz, Jun 12, 2022,11:10 ESTHER CH Jun 11, 2022 11:54 ANAND DIAZ MD Jun 12, 2022 11:09
[2022-06-11] MEDS ORDERED: KCL 20 MEQ TAB (K-DUR) PO NR (12:00)
[2022-06-11] MEDS: cefTRIAXone 1 GM PRE-MIX 50 ML IV SCH (12:02)
[2022-06-11] MEDS: MAGNESIUM 1 GM/100 ML IVPB 100 ML IV SCH ×2 (12:43→13:59)
[2022-06-11 15:28] VITALS: BP 111/55
[2022-06-11] MEDS: LACTOBACILLUS ACIDOPHILUS (PROBIOTIC) CAPSULE PO SCH (18:25)
[2022-06-11 19:28] VITALS: BP 117/57
[2022-06-11] MEDS: KCL 20 MEQ TAB (K-DUR) PO SCH (20:12)
[2022-06-11] MEDS: APIXABAN 5 MG (ELIQUIS) TABLET PO SCH (20:12)
[2022-06-11 23:04] VITALS: BP 107/59
[2022-06-12 04:00] VITALS: BP 122/56
[2022-06-12 04:24] LABS: HEMATOCRIT 29 % (35-52); HEMOGLOBIN 9.1 g/dL (11.5-16.0); MEAN CORPUSCULAR HEMOGLOBIN 29 pg (25-34); MEAN CORPUSCULAR HGB CONC 32 g/dL (32-36); MEAN CORPUSCULAR VOLUME 90 fL (80-99); MEAN PLATELET VOLUME 10.3 fL (9.0-12.2); PLATELET COUNT 173 10^3/uL (130-400); WHITE BLOOD COUNT 8.3 10^3/uL (4.3-11.0)
[2022-06-12 04:38] LABS: POTASSIUM 3.8 MMOL/L (3.6-5.0)
[2022-06-12 04:39] LABS: CALCIUM 8.9 MG/DL (8.5-10.1)
[2022-06-12 04:44] LABS: CREATININE SERUM 1.51 MG/DL (0.60-1.30)
[2022-06-12] MEDS ORDERED: VENlafaxine XR 75 MG (EFFEXOR XR) CAP PO SCH (07:00)
[2022-06-12 07:49] VITALS: BP 111/54
[2022-06-12] MEDS: KCL 20 MEQ TAB (K-DUR) PO SCH (08:16)
[2022-06-12] MEDS: LACTOBACILLUS ACIDOPHILUS (PROBIOTIC) CAPSULE PO SCH ×2 (08:16→12:05)
[2022-06-12] MEDS: APIXABAN 5 MG (ELIQUIS) TABLET PO SCH (08:17)
[2022-06-12] MEDS ORDERED: LETROZOLE 2.5 MG (FEMARA) TAB PO SCH (09:00)
[2022-06-12] MEDS ORDERED: MECLIZINE 25 MG (ANTIVERT) TAB PO SCH (09:00)
[2022-06-12] MEDS ORDERED: FUROSEMIDE 20 MG (LASIX) TAB PO SCH (09:00)
[2022-06-12] MEDS ORDERED: EMPAGLIFLOZIN 10 MG TABLET (JARDIANCE) PO SCH (09:00)
[2022-06-12] MEDS ORDERED: FURO20TA4 PO (10:10)
--- NOTE | 2022-06-12 10:10 | Discharge Inst-Simple/Standard ---
Discharge Inst-Standard Discharge Medications New, Converted or Re-Newed RX: Transmitted to Pharmacy Patient Instructions/Follow Up Plan of Care/Instructions/FU: Please continue to take your medications as written. Please follow up with your primary care doctor to follow up this hospital stay. Activity as Tolerated: Yes Discharge Diet: Low Sodium Diet Return to The Hospital For: Chest pain, shortness of breath, fever, weakness, if you feel you are getting worse. ANAND DIAZ MD Jun 12, 2022 10:10
[2022-06-12] MEDS: cefTRIAXone 1 GM PRE-MIX 50 ML IV SCH (11:15)
--- NOTE | 2022-06-12 11:19 | Discharge Summary ---
ESTHER CH 06/12/22 1109: Discharge Summary Hospital Course Hospital Course Date of Admission: Jun 11, 2022 at 00:15 Admission Diagnosis : Family Physician/Provider: Jg Kirk MD Date of Discharge: 06/12/22 Discharge Diagnosis: Patient is a 71-year-old female with a history of systolic heart failure, afib, HTN, vertigo, chronic edema, hx of breast cancer with lumpectomy, chemo and radiation, and has an ICD in place who presented to the ED on 06/10 with chief complaint of vertigo. She states that she has had vertigo for several years but that it is well-controlled on her meclizine 25 mg po daily, however, the patient did not take any of her medications the day of admission. The patient stated that she got up to shower and became extremely dizzy and near syncope and described the sensation as the room spinning. She sat down on the edge of the tub and reports that she was unable to stand up by herself. Her son was able to help her up and the patient felt better for several hours following the event. Later that day the symptoms began to get progressively worse leading to EMS being called. The patient reports that her vertigo is worsened by positional changes and is slightly better when she is laying down. The patient was admitted on 05/17 for septic vs cardiogenic shock and was also found to have afib, acute on chronic kidney disease, and acute ischemic hepatitis during this time. Her condition improved and she was transferred to IRU from 05/24 to 06/04 for weakness. She was discharged on lasix 40 mg PO daily which the patient did not take because she felt that she was urinating more than enough already. She stated that prior to attempting to shower on 06/10, she had peed for 16 hours straight. The patient has urinary incontinence which she says has been going on for a couple of years. She describes that she feels the urge to urinate and has only a few seconds before she goes. Patient had some LE edema b/l worse on the right side on admission. Today she states that both of lower extremities are back to her baseline. The patient has chronic lymphedema in her left arm following treatment for her breast cancer and states that this was noticeably swollen during her hospital stay in May. However, she reports that this has improved and is now back to her baseline. The patient converted into afib after admission but but has remained in sinus rhythm since. Patient was found to have a UTI at time of admission and completed a 3 day course of antibiotics, initially cefepime 1,000mg IV Q8H which was then switched to Rocephin 1,000mg IV daily. The patient reports that she has not had any more episodes of vertigo or near syncopal episodes since being admitted and feels her condition has greatly improved. Patient is being prepared for discharge home today. Hospital Course: [ ] Labs and Pending Lab Test: Laboratory Tests 06/12/22 04:08: White Blood Count 8.3, Red Blood Count 3.18L, Hemoglobin 9.1L, Hematocrit 29L, Mean Corpuscular Volume 90, Mean Corpuscular Hemoglobin 29, Mean Corpuscular Hemoglobin Concent 32, Red Cell Distribution Width 17.0H, Platelet Count 173, Mean Platelet Volume 10.3, Sodium Level 142, Potassium Level 3.8, Chloride Level 108H, Carbon Dioxide Level 23, Anion Gap 11, Blood Urea Nitrogen 17, Creatinine 1.51H, Estimat Glomerular Filtration Rate 37, BUN/Creatinine Ratio 11, Glucose Level 101, Calcium Level 8.9 Home Meds Active Furosemide 20 Mg Tablet 20 Mg PO DAILY Acidophilus-Pectin Capsule (Lactobacillus Acidophilus/Pect) 75 Million Cell-100 Mg Capsule 2 Each PO TIDWM [place] (Sodium Chloride) 0.65 % [place] 0 Ml NA QID QID Amlodipine Besylate 10 Mg Tablet 10 Mg PO DAILY Carvedilol 3.125 Mg Tablet 3.125 Mg PO BID Doxazosin Mesylate 4 Mg Tablet 4 Mg PO BID Furosemide 40 Mg Tablet 40 Mg PO DAILY Jardiance (Empagliflozin) 10 Mg Tablet 10 Mg PO DAILY Vitamin B-12 (Cyanocobalamin (Vitamin B-12)) 1,000 Mcg Tablet 1,000 Mcg PO DAILY Meclizine HCl 25 Mg Tablet 25 Mg PO DAILY Eliquis (Apixaban) 5 Mg Tablet 5 Mg PO BID Venlafaxine HCl ER (Venlafaxine HCl) 150 Mg Cap.er.24h 150 Mg PO DAILY Letrozole 2.5 Mg Tablet 2.5 Mg PO DAILY Reported Fish Oil 1,200 mg Fish Oil (Fish Oil/Dha/Epa) 1,200 Mg-144 Mg-216 Mg Capsule 1 Each PO DAILY Assessment/Pt Instructions Vertigo No further episodes of vertigo or near syncope Othostatic pressures normal Discharge on home dose of meclizine 25 mg PO daily On scopolamine patch 1.5mg Q72H during stay in hospital, no complaints of N/V UTI Completed 3 day course of antibiotics, initially cefepime 1,000mg IV Q8H transitioned to Rocephin 1,000mg IV daily Urine culture from recent visit grew chun-sensitive E. coli Systolic HF Denies chest pain/SOB O2 sats in high 90s on RA Echo obtained on 05/17 shows EF of 20-25% Lucien inhibitor/ARB contraindicated due to renal function Discharging on a lower dose of Lasix at 20mg PO daily Stopping patient's 10mg amlodipine PO daily and Doxazosin 4mg PO BID due to soft blood pressures during her stay. A-fib, nonvalvular Converted to afib after admission, has remained sinus rhythm since Cardiology consulted Rate has been well-controlled Eliquis 5mg BID Elevated troponin Measured at 0.347 on 05/18 Has been continuing to trend downward Hx of breast cancer No acute needs, clinically significant Chronic lymphedema of left upper extremity Patient states currently at baseline Follow up outpatient with PCP Dr. Kirk in the next 1-2 weeks. Discharge Instructions Discharge Diet: Low Sodium Diet Activity as Tolerated: Yes Discharge Physical Examination Vital Signs Vital Signs Date Time Temp Pulse Resp B/P (MAP) Pulse Ox O2 Delivery O2 Flow Rate FiO2 06/12/22 08:00 99 Nasal Cannula 2.00 06/12/22 07:49 37.0 82 19 111/54 (73) General Appearance: No Apparent Distress, WD/WN HEENT: PERRL/EOMI Respiratory: Lungs Clear, Normal Breath Sounds, No Accessory Muscle Use, No Respiratory Distress Cardiovascular: Regular Rate, Rhythm, No Murmur, Normal Peripheral Pulses, Systolic Murmur Gastrointestinal: Non Tender, Soft Extremity: Normal Capillary Refill, No Calf Tenderness, Pedal Edema (Patient states currently at baseline) Skin: Warm/Dry Neurologic/Psychiatric: Alert, Oriented x3 Allergies: Coded Allergies: codeine (Verified Allergy, Mild, HALLUCINATIONS, 01/18/17) hydrocodone (Verified Allergy, NAUSEA AND VOMITING, 05/24/22) oxycodone (Verified Allergy, NAUSEA AND VOMITING, 05/24/22) Discharge Summary Date of Admission Jun 11, 2022 at 00:15 Date of Discharge Discharge Date: Jun 12, 2022 ANAND CÁRDENAS MD 06/12/226: Discharge Summary Discharge Physical Examination Allergies: Coded Allergies: codeine (Verified Allergy, Mild, HALLUCINATIONS, 01/18/17) hydrocodone (Verified Allergy, NAUSEA AND VOMITING, 05/24/22) oxycodone (Verified Allergy, NAUSEA AND VOMITING, 05/24/22) Supervisory-Addendum Brief Verification & Attestation Participated in pt care: history, MDM, physical Personally performed: exam, history, MDM, supervision of care Care discussed with: Medical Student Procedures: n/a Results interpretation: Verified all documentation Verification and Attestation of Medical Student E/M Service A medical student performed and documented this service in my presence. I reviewed and verified all information documented by the medical student and made modifications to such information, when appropriate. I personally performed the physical exam and medical decision making. Anand Cárdenas, Jun 12, 2022,21:06 ESTHER CH Jun 12, 2022 11:09 ANAND CÁRDENAS MD Jun 12, 2022 21:06
[2022-06-12 12:07] VITALS: BP 117/61
[2022-06-12] MEDS ORDERED: SACU1TAB2 PO (13:31)
--- NOTE | 2022-06-12 13:38 | Progress Note - Cardiology ---
Cardiology SOAP Progress Note Subjective: Feels well today No cp or palp or syncope or dizziness No n/v/d No focal weakness Extremity swelling continues to improve Objective: I&O/Vital Signs 06/12/22 06/12/22 06/12/22 06/12/22 04:00 07:17 07:49 08:00 Temp 37.1 37.0 Pulse 85 86 82 Resp 16 19 B/P (MAP) 122/56 (78) 111/54 (73) Pulse Ox 97 99 99 O2 Delivery Nasal Cannula Nasal Cannula Nasal Cannula O2 Flow Rate 2.00 2.00 2.00 06/12/22 06/12/22 12:07 13:09 Temp 36.4 Pulse 83 84 Resp 16 B/P (MAP) 117/61 (79) Pulse Ox 96 O2 Delivery Room Air 06/12/22 00:00 Intake Total 2110 ml Output Total 700 ml Balance 1410 ml Weight (Pounds): 230 Weight (Ounces): 0.0 Weight (Calculated Kilograms): [phone] Constitutional: AAO x 3, well-developed, well-nourished Respiratory: No accessory muscle use; chest expansion is symmetric, chest is bilaterally symmetric, other (good, bilateral air entry) Cardiovascular: irregularly irregular, S1 and S2, systolic murmur (soft YASSINE at card base) Gastrointestional: No tender; soft; No guarding, No rebound; audible bowel sounds Extremities: No swelling (mild to mod bilat leg swelling; chronic mod swelling of the L arm) Neurologic/Psychiatric: oriented x 3, other (moves all limbs equally) Skin: normal color, warm/dry; No cyanosis, No rash on exposed areas, No ulcerations on exposed areas Results/Procedures: Labs Laboratory Tests 06/12/22 04:08: White Blood Count 8.3, Red Blood Count 3.18L, Hemoglobin 9.1L, Hematocrit 29L, Mean Corpuscular Volume 90, Mean Corpuscular Hemoglobin 29, Mean Corpuscular Hemoglobin Concent 32, Red Cell Distribution Width 17.0H, Platelet Count 173, Mean Platelet Volume 10.3, Sodium Level 142, Potassium Level 3.8, Chloride Level 108H, Carbon Dioxide Level 23, Anion Gap 11, Blood Urea Nitrogen 17, Creatinine 1.51H, Estimat Glomerular Filtration Rate 37, BUN/Creatinine Ratio 11, Glucose Level 101, Calcium Level 8.9 Microbiology 06/11/22 Urine Culture - Final, Complete NO GROWTH Laboratory Tests 06/10/22 23:05 06/11/22 05:36 06/12/22 04:08 A/P: Assessment: Diuretic phase of recovery from acute tubular necrosis - elec abnormalities associated with the diuretic phase Shock in May 2022 - septic and/or cardiogenic - associated with ATN Jaundice (elev bilirubin) of undetermined etiology - managed by Dr Guillen PAF - Apixaban prophylaxis Chronic HFrEF due to NICM (primarily managed by her hydrography teacher Dr Woodward in [place], [place]) - Echocardiogram of 04-08-[address] Felton showed LVEF 10-15% with severe diffuse hypokinesis. LA and RA dilated. Mod to severe AoR. Mod MR. Mod to severe TR. PASP 50-55 mmHg - She reports she had a sleep study done that was "inconclusive" - she does not use CPAP or supplemental oxygen - managed by Dr. Kirk - AICD - implanted in September 2021 at [facility] (single chamber device) - followed by Dr. Woodward - Echo on 05-17-22: LVEF 20-25%, global hypokinesis of LV, mild to mod MR, PASP 35-40 mmHg HLD - statin tx H/o DVT R leg - OAC with Eliquis H/o Breast Cancer - has had a mastectomy Gen weakness - d/t prolonged illness Chronic lymphedema of the SUSAN Plan: * Continue current regimen. Add low-dose Entresto * Advised f/u with her hydrography teacher and her pcp for reval of therapy and to f/u on labs this coming week * Continue apixaban for stroke prophylaxis CHAU POPE MD FACP FAC CCDS Jun 12, 2022 13:38
[2022-06-12 14:02] VITALS: BP 117/61
[2022-06-13] MEDS ORDERED: SCOPOLAMINE 1.5 MG (TRANSDERM-SCOP) PATCH TOP SCH (21:00)
== END 2022-06-12 15:10 | disposition home or self-care (01) | DRG 690 ==
LOC: EDUNIT# 22:54 → ER 22:55 → CSD 06-11 00:15
PROVIDERS: ADMIT Family Medicine; ATTEND Family Medicine
DX: N39.0 Urinary tract infection, site not specified (principal); I13.0 Hypertensive heart and chronic kidney disease with heart failure and stage 1 through stage 4 chronic kidney disease, or unspecified chronic kidney disease; I50.22 Chronic systolic (congestive) heart failure; I42.8 Other cardiomyopathies; I48.0 Paroxysmal atrial fibrillation; Z90.11 Acquired absence of right breast and nipple; R42 Dizziness and giddiness; E78.00 Pure hypercholesterolemia, unspecified; M19.90 Unspecified osteoarthritis, unspecified site; Z85.3 Personal history of malignant neoplasm of breast; Z92.21 Personal history of antineoplastic chemotherapy; Z92.3 Personal history of irradiation; E83.42 Hypomagnesemia; E87.6 Hypokalemia; E03.9 Hypothyroidism, unspecified; N18.9 Chronic kidney disease, unspecified; E11.22 Type 2 diabetes mellitus with diabetic chronic kidney disease; I89.0 Lymphedema, not elsewhere classified; Z95.810 Presence of automatic (implantable) cardiac defibrillator; Z87.891 Personal history of nicotine dependence; R77.8 Other specified abnormalities of plasma proteins; Z86.718 Personal history of other venous thrombosis and embolism; Z79.01 Long term (current) use of anticoagulants
CPT/HCPCS: 36415; 51702; 70450; 71045; 80048; 80053; 81000; 83735; 84439; 84443; 84484; 85025; 85027; 85610; 85730; 87088; 93005; 93041; 96360